=== PATIENT | female | born 1965 | race Caucasian/White ===

== ENCOUNTER 2022-11-03 12:45 | Outpatient (OUT) | payer MEDICARE, MEDICAID, SELFPAY ==
--- NOTE | 2022-11-03 | CONS_ITS ---
CONSULTATION DATE: ??11/03/2022 TO:? Gretel Esqueda M.D. CHIEF COMPLAINT:? Includes bilateral knee pain, right worse than left.? HISTORY OF PRESENT ILLNESS:? Review of systems, past medical/surgical history were obtained and documented on the health questionnaire and is available upon request. She reports that she has had knee pain for many years, at least since 2012.? In the past, she reports she has undergone some type of arthroscopic knee surgery on the right side.? Details of which are not available.? Despite the successful operation, she reports the pain continue to progress over the years, to the point where it has altered her quality of life, level of functioning and sleep pattern.? She describes the pain as 5-7/10 pain, sharp in character, increased with activities such as standing, walking and performing transitioning maneuvers.? She feels most comfortable in the semi-recumbent position.? She denies any change in bowel and bladder habits or new sensorimotor changes in the lower extremities?? She has been on various non-steroidal agents for at least the last 10 years, on and off, and most recently she has been on Mobic consistently, again, for at least the last six months.? She has also received intra-articular corticosteroid injections.? She reports she has had significant but only temporary reduction in pain symptoms with the same. MEDICATION:? Current medication includes Tylenol p.o. p.r.n.? She does report, it does take the edge off and she uses it sparingly EXAM:? Her examination is notable for patient having no clinical radiculopathy or myelopathy involving the lower extremities.? She has had nothing suggesting facet joint loading pain clinically, SI joint dysfunction or hip joint dysfunction.? She did have tenderness around both knee joints.? Also noted was a significant amount of edema surrounding both knee joints, right worse than left, with significant crepitus bilaterally, right worse than left.? Limited range of motion to flexion and extension, associated with pain.? She had nothing to suggest ligamental laxity of both knee joints.? She did have a fair amount of myofascial spasm involving the hamstrings and gastrocnemius muscles bilaterally, right worse than the left side.? She has no appreciable J-sign on examination. IMPRESSION:? Our impression is patient appears to have chronic pain, secondary to bilateral knee joint pain of unclear etiology, most likely osteoarthrosis. RECOMMENDATIONS:? I recommend she undergo an MRI of her bilateral knee joints.? I have placed her on baclofen 5 mg pills, 1-2 b.i.d. as tolerated.? Aquatic therapy was initiated, and we will see the patient back in the office in 4-6 weeks? time or sooner if needed. As part of providing excellent, safe, comprehensive care, the following was completed at our patient's visit: 1. A medication reconciliation and review to ensure accurate knowledge of current/active medications, including asking our patients to inform us about any mmac-[id number] medications or herbal remedies/nutritional supplements/alternative remedies. 2. A review to specifically ensure our patients have had annual screening for: elevated body mass index (BMI, see intake chart for exact total), tobacco use, screening for depression, and screening for unhealthy alcohol use.? When screening is concerning, patients are provided with education and the specific recommendation to discuss the concerning health issue and treatment options with their primary care provider. JACKIE
== END 2022-11-03 12:46 | disposition home or self-care (01) ==
LOC: PM 12:45
PROVIDERS: PCP Family Medicine; Visit Provider Anesthesiology Pain Medicine
DX: M25.561 Pain in right knee (principal); M25.562 Pain in left knee; G89.29 Other chronic pain
CPT/HCPCS: G0463

== ENCOUNTER 2022-11-19 12:01 | Outpatient (OUT) | payer MEDICARE, MEDICAID, SELFPAY ==
--- NOTE | 2022-11-19 12:13 | MR_ITS ---
[address] [address] Patient Name: MASSIEL ELLIOTT MRN: [id number] date: 1965 Sex: F Assigned Patient Location: MRI Current Patient Location: MRI Accession/Order Number: [id number] Exam Date: 11/19/2022 12:24 Report Date: 11/19/2022 14:11 At the request of: BARBIE LOPEZ Procedure: MR knee RT wo con EXAM: MR knee RT wo con HISTORY: Bilateral knee osteoarthritis right knee pain. COMPARISON: Right knee x-rays 04/16/2022. TECHNIQUE: Multi planar, multisequence MR imaging of the right kidney is without contrast. Findings: Menisci: There is complex tearing within the posterior horn of the medial meniscus extending through the body. The body is partially extruded. There is minimal free edge fraying of the posterior aspect of the body of the lateral meniscus. Cruciate ligaments: The anterior posterior cruciate ligaments are intact. Collateral ligaments: The medial collateral ligament and lateral collateral complex are intact. Patellofemoral: The extensor mechanism is intact. Moderate-sized joint effusion. Intra-articular loose bodies posterior to the PCL. The largest measures approximately 2.3 cm. 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 Other bones and cartilage: No acute fracture or malalignment. Grade 2 with regions of grade 3 lateral femoral tibial compartment chondromalacia. There is grade 4 medial femoral tibial compartment chondromalacia with adjacent bone marrow edema. Miscellaneous: Small to moderate-sized Jones's cyst. Nonspecific subcutaneous edema. MR/MR knee RT wo con IMPRESSION: 1. Torn medial meniscus. 2. Minimal free edge tearing of the lateral meniscus. 3. Moderate-sized joint effusion with intra-articular loose bodies. 4. Tricompartmental osteoarthritis. Findings are most severe within the medial femoral tibial compartment. 5. Small to moderate-sized Jones's cyst. Electronically authenticated by: NILESH GUALLPA Date: 11/19/2022 14:11
--- NOTE | 2022-11-19 12:13 | MR_ITS ---
[address] [address] Patient Name: MASSIEL ELLIOTT MRN: [id number] date: 1965 Sex: F Assigned Patient Location: MRI Current Patient Location: MRI Accession/Order Number: [id number] Exam Date: 11/19/2022 12:24 Report Date: 11/19/2022 13:51 At the request of: BARBIE LOPEZ Procedure: MR knee LT wo con EXAM: MR knee LT wo con HISTORY: Bilateral knee osteoarthritis left knee pain. COMPARISON: None. TECHNIQUE: Multi planar, multisequence MR imaging of the left knee without contrast. Findings: Menisci: There is complex tearing throughout the posterior horn of the medial meniscus extending along the undersurface of the body. There is also mild free edge tearing of the body of the medial meniscus. The body is partially extruded. Minimal free edge tearing involving the posterior horn of the lateral meniscus. Cruciate ligaments: The anterior posterior cruciate ligaments are intact. Collateral ligaments: The medial collateral ligament and lateral collateral complex are intact. Patellofemoral: Moderate to large joint effusion. Grade 4 patellofemoral compartment chondromalacia. Other bones and cartilage: There is dominantly grade II chondromalacia within the lateral femoral tibial compartment. There is a small region of full-thickness cartilage loss involving the lateral tibial plateau with mild adjacent bone marrow edema. Grade 4 medial femoral tibial compartment chondromalacia with mild adjacent subcortical cystic change in bone marrow edema. Miscellaneous: Small Jones's cyst. Nonspecific subcutaneous edema. MR/MR knee LT wo con IMPRESSION: 1. Torn menisci. 2. Moderate to large joint effusion. 3. Tricompartmental osteoarthritis. 4. Small Jones's cyst. Electronically authenticated by: NILESH GUALLPA Date: 11/19/2022 13:51
== END 2022-11-19 12:02 | disposition home or self-care (01) ==
LOC: MRI 12:03
PROVIDERS: PCP Family Medicine; Visit Provider Anesthesiology Pain Medicine
DX: M17.0 Bilateral primary osteoarthritis of knee (principal)
CPT/HCPCS: 73721; 73723

== ENCOUNTER 2022-12-16 09:02 | Outpatient (OUT) | payer MEDICARE, MEDICAID, SELFPAY ==
--- NOTE | 2022-12-16 09:36 | PM.CN ---
Consult Note: HPI Data of Consult Patient: known to practice within the last 3 years Requesting Physician: Nadeen Farmer NP Primary Care Provider: Gretel Esqueda MD Consult Narrative Reason for consult: f/u Narrative: Elizabeth Chu a pleasant 57 year old female presents for evaluation of chronic bilateral knee pain. Patient recently underwent bilateral knee MRI and is here to discuss the results. Pain 8-9/10 bilateral knees. cc:: CC: Nadeen Farmer NP Review of Systems ROS Status of ROS 10 or more systems reviewed and unremarkable except as noted in history and below Musculoskeletal Reports: joint pain Meds Home Medications and Allergies Home Medications Medication Instructions Recorded Confirmed Type apixaban 5 mg tablet (Eliquis) 5 mg PO BID 11/09/22 11/09/22 History calcium carbonate 500 mg calcium 500 mg PO DAILY 11/09/22 11/09/22 History (1,250 mg) tablet (Oyster Shell Calcium) carbamazepine 200 mg 200 mg PO DAILY 11/09/22 11/09/22 History tablet,extended release,12 hr (Tegretol XR) cetirizine 10 mg tablet 10 mg PO DAILY PRN allergy symptoms 11/09/22 11/09/22 History cholecalciferol (vitamin D3) 50 50 mcg PO DAILY 11/09/22 11/09/22 History mcg (2,000 unit) capsule famotidine 20 mg tablet 20 mg PO BID 11/09/22 11/09/22 History montelukast 10 mg tablet 10 mg PO DAILY 11/09/22 11/09/22 History (Singulair) potassium chloride 10 mEq 10 meq PO DAILY 11/09/22 11/09/22 History capsule,extended release primidone 50 mg tablet 50 mg PO DAILY 11/09/22 11/09/22 History sertraline 25 mg tablet 25 mg PO DAILY 11/09/22 11/09/22 History Allergies Allergy/AdvReac Type Severity Reaction Status Date / Time No Known Drug Allergies Allergy Verified 11/09/22 14:01 Exam Constitutional Documenting provider has reviewed patient's vital signs: yes Common normals: no apparent distress, oriented x3, healthy appearing, alert and well nourished General appearance: cooperative HENMT Common normals: normocephalic, hearing grossly normal bilaterally and moist oral mucous membranes Head and scalp: normocephalic Eye Common normals: PERRL Pupil: PERRL Neck & C-Spine Common normals: full ROM General: normal visual inspection Chest Common normals: inspection of chest normal Respiratory Common normals: normal respiratory effort, no retractions and no use of accessory muscles Extremity Other: bilateral knee diameter enlargement, edema, pain to touch severe pain with medial and lateral stress testing moderate to severe pain with standing and ambulation Neuro Common normals: oriented x3, CN's II-XII intact bilaterally, moves all extremities, no focal motor deficits, no sensory deficits noted and deep tendon reflexes 2+ bilaterally Sensorium/orientation: alert Motor exam: strength 5/5 throughout and no movement abnormalities noted Psych Common normals: mental status grossly normal, thought process normal, cooperative, affect normal, speech normal and activity/motor behavior normal Speech: normal speech Thought process: normal thought process Results Additional Findings Additional findings: I have checked an [place]AR[place] report on this patient today and there are no aberrancies noted in the prescribing history.?? A drug screen was completed and reviewed within the last year, and if there has not been a drug screen completed we ordered one today to monitor higher risk, state monitored pain medication use. As part of providing excellent, safe, comprehensive care, the following was completed at our patient's visit: 1. A medication reconciliation and review to ensure accurate knowledge of current/active medications, including asking our patients to inform us about any zktw-kqt-xprlygg medications or herbal remedies/nutritional supplements/alternative remedies. 2. A review to specifically ensure our patients have had annual screening for: elevated body mass index (BMI), tobacco use, screening for depression, and screening for unhealthy alcohol use. When screening is concerning, patients are provided with education and the specific recommendation to discuss the concerning health issue and treatment options with their primary care provider. Assessment and Plan Assessment and Plan (1) Bilateral knee pain: (2) Osteoarthritis of knees, bilateral: Plan continue current medications orthopedic consult for MRI findings on bilateral knees start aquatherapy start transdermal therapeutics cream TID-QID bilateral knees f/u 2 months, consider durolane to bilateral knees if not surgical candidate.
== END 2022-12-16 09:03 | disposition home or self-care (01) ==
PROVIDERS: PCP Family Medicine; Visit Provider Nurse Practitioner
DX: M25.561 Pain in right knee (principal); M25.562 Pain in left knee; M17.0 Bilateral primary osteoarthritis of knee
CPT/HCPCS: G0463

== ENCOUNTER 2022-12-21 07:56 | Outpatient (RCR) | payer MEDICARE, MEDICAID, SELFPAY | END 2022-12-22 16:55 | disposition home or self-care (01) | LOC: PT 07:56 | PROVIDERS: PCP Family Medicine; Visit Provider Nurse Practitioner | DX: M25.561 Pain in right knee (principal); M25.562 Pain in left knee | CPT/HCPCS: 97162 ==

== ENCOUNTER 2023-04-21 09:22 | Emergency (ER) | payer MEDICARE, MEDICAID, SELFPAY ==
[2023-04-21] VITALS (25 sets, daily range): BP systolic 89–116; BP diastolic 52–73; PULSE 108–124; RESP 19–30; TEMP 36.6; O2SAT 79–97; BMI 35.6
--- NOTE | 2023-04-21 09:30 | ECG_ITS ---
[facility] Test Date: 2023-04-21 Pat Name: MASSIEL ELLIOTT Department: Room: - Gender: Female Manager Floor: : 1965 Requested By: CASSIE LORENZ Order Number: [id number] Reading MD: ZAIN ROSS Measurements Intervals [place] Rate: 117 P: 43 VA: 118 QRS: 18 QRSD: 96 T: 0 QT: 320 QTc: 390 Interpretive Statements 1120 Sinus tachycardia 2210 Short VA interval 4068 Nonspecific Twave abnormality 5222 Moderate voltage criteria for LVH, may be normal variant 9150 abnormal ECG Electronically Signed On 04-22-2023 6:41:03 EST by ZAIN ROSS
--- OUTSIDE RECORDS SUMMARY | 2023-04-21 09:34 | XMS_ITS | CCD ---
Author Name Unknown Address [address] [facility] [id number] [place] [address] Organization [facility] Care Team Providers Care Egg Pasteurizer Name Role Phone Gretel Lorenz Unavailable GERDA, DR GRETEL Jaramillo Primary Care Unavailable LORENZ, DR GRETEL Jaramillo Admitting Unavailable ZIEBCATA, DR ARELI Dewey Consulting Unavailable LORENZ, DR GRETEL Jaramillo Attending Unavailable LORENZ, DR GRETEL Jaramillo Consulting Unavailable LORENZ, DR GRETEL Jaramillo Primary Care Unavailable LORENZ, DR GRETEL Jaramillo Admitting Unavailable BAKARI GONZALEZ Consulting Unavailable LORENZ, DR GRETEL Jaramillo Attending Unavailable LORENZ, DR GRETEL Jaramillo Consulting Unavailable LORENZ, DR GRETEL Jaramillo Primary Care Unavailable LORENZ, DR GRETEL Jaramillo Admitting Unavailable LORENZ, DR GRETEL Jaramillo Attending Unavailable GERDA, GRETEL Primary Care Physician LUCY EMNENDEZ Attending Unavailable ZUNIGA, NOLA Leonard Referring Unavailable ZUNIGA, NOLA Leonard Attending Unavailable Zuniga, Nola Leonard Referring Unavailable Zuniga, Nola Leonard Attending Unavailable Zuniga, Nola Leonard Admitting Unavailable Allergies Allergy Classification Reported Allergen(s) Allergy Type Date of Onset Reaction(s) Facility (10 sources) diphenhydrAMINE Drug Allergy Unknown [employer] Other (11 sources) Phenytoin; Translations: [phenytoin] Drug Allergy Unknown, Rash [facility] (10 sources) Seasonal allergy Propensity to adverse reactions Unknown [employer] Other (2 sources) Phenytoin Drug Allergy 05-26-19 15 [facility] Repository Medications Current Medications Medication Drug Class(es) Dates Sig (Normalized) Sig (Original) acetaminophen 325 mg / oxyCODONE hydrochloride 5 mg oral tablet (1 source) Opioid Agonist Start: 04-09-2023 take 1 tablet by mouth every six hours oxyCODONE-Acetam inophen 5-325 MG 1 tablet as needed Orally every 6 hrs for 15 days Mar, Active apixaban 5 mg oral tablet (1 source) Factor Xa Inhibitor Start: 03-17-2023 take 1 tablet by mouth twice daily Eliquis 5 mg oral tablet 5 mg = 1 tab(s), Oral, BID, Refills(s) 0, Blood Thinner Start Date: 03/17/23 Status: Ordered aspirin 325 mg oral tablet (9 sources) Platelet Aggregation Inhibitor, Nonsteroidal Anti-inflammatory Drug take 1 tablet by mouth every twenty-four hours Aspirin 325 MG 1 tablet Orally Once a day Active take 1 tablet by mouth every twe lve hours azithromycin 250 mg oral tablet (8 sources) Macrolide Antimicrobial Start: 06-25-2022 Azithromycin 250 MG as directed Orally 2 tabs po today, then 1 tab daily x 4 more days for 5 Jun, Active Start: 03-20-2022 Azithromycin 2 50 MG as directed Orally 2 tabs po today, then 1 tab daily x 4 more days for 5 days 2 tabs po today, then 1 po daily x 4 more days Feb, Active calcium carbonate 1250 mg oral tablet (9 sources) take 1 tablet by pepper th once daily Oyster Shell Calcium 500 MG TAKE 1 TABLET BY MOUTH EVERY DAY for 90 Active take 1 tablet by pepper th twice daily at mealtime Oyster Calcium 500 MG 1 tablet with food Orally Twice a day Active 12 hr carBAMazepine 200 mg extended release oral tablet (19 sources) Mood Stabilizer Start: 03-17-2023 take 1 tablet by mouth once daily Tegretol XR 200 mg oral tablet, extended release 200 mg = 1 tab(s), Oral, Daily, Refills(s) 0, Seizure Start Date: 03/17/23 Status: Ordered take 1 capsule by mo [facility] three times daily carBAMazepine ER 200 MG 1 capsule Orally Three times daily Active TEGretol 200 MG Orally Active take 1 capsule by mouth twice da ever cetirizine hydrochloride 10 mg oral tablet (11 sources) Histamine-1 Receptor Antagonist Start: 03-17-2023 take 1 tablet by mouth once daily cetirizine 10 mg Tab 10 mg = 1 tab(s), Oral, Daily, Refills(s) 0, Allergy symptoms Start Date: 03/17/23 Status: Ordered cholecalciferol 0.05 mg oral tablet (10 sources) Vitamin D Start: 03-17-2023 take 1 tablet by mouth once daily cholecalciferol 2000 intl units oral tablet (Vitamin D3) 50 mcg = 1 tab(s), Oral, Daily, Refills(s) 0, Prophylaxis Start Date: 03/17/23 Status: Ordered take 1 tablet by mouth once zoila y Vitamin D 50 MCG (1999 UT) TAKE 1 TABLET BY MOUTH EVERY DAY for 90 Active take 1 capsule by mo ut every twenty-four hours Vitamin D3 50 MCG (1999 UT) 1 capsule Orally Once a day Active ciprofloxacin 500 mg oral tablet (8 sources) Quinolone Antimicrobial Start: 03-13-2015 take 1 tablet by mouth every twelve hours docusate sodium 100 mg oral capsule (1 source) take 1 capsule by mouth every twenty-four hours Colace 100 MG 1 capsule as needed Orally Once a day Active famotidine 20 mg oral tablet (11 sources) Histamine-2 Receptor Antagonist Start: 03-17-2023 take 1 tablet by mouth twice daily famotidine 20 mg Tab 20 mg = 1 tab(s), Oral, BID, Refills(s) 0, Control of stomach acid Start Date: 03/17/23 Status: Ordered take 1 tablet by [facility] every twenty-four hours Famotidine 20 MG 1 tablet at bedtime as needed Orally Once a day Active furosemide 40 mg oral tablet (8 sources) Loop Diuretic take 1 tablet by mouth every twenty-four hours hydrOXYzine hydrochloride 25 mg oral tablet (9 sources) Antihistamine take 1 tablet by mouth once daily at bedtime as needed hydrOXYzine HCl 25 MG TAKE 1 TABLET BY MOUTH EVERY DAY AT BEDTIME NEEDED for 90 Active ammonium lactate 120 mg/ml topical lotion (1 source) Ammonium Lactate 12 % 1 application External Twice a day as needed for dry skin for 30 days Active meloxicam 15 mg oral tablet (8 sources) Nonsteroidal Anti-inflammatory Drug Start: 023 take 1 tablet by mouth every twenty-four hours Meloxicam 15 MG 1 tablet Orally Once a day for 30 day(s) Mar, Active montelukast 10 mg oral tablet (17 sources) Leukotriene Receptor Antagonist Start: 023 take 1 tablet by mouth once daily montelukast 10 mg Tab 10 mg = 1 tab(s), Oral, Daily, Refills(s) 0, Allergy symptoms Start Date: 03/17/23 Status: Ordered Oyster Shell Calcium 1250 mg (500 mg elemental calcium) oral tablet (1 source) Start: Oyster Shell Calcium 1250 mg (500 mg elemental calcium) oral tablet 1,250 mg = 1 tab(s), Oral, Daily, Refills(s) 0, Prophylaxis Start Date: 03/17/23 Status: Ordered Oyster Shell Calcium 500 MG (1 source) take 1 tablet by mouth once daily Oyster Shell Calcium 500 MG TAKE 1 TABLET BY MOUTH EVERY DAY for 90 Active predniSONE 20 mg oral tablet (2 sources) Start: take 2 tablets by mouth every twenty-four hours predniSONE 20 MG 2 tablets Orally Once a day for 5 days Jun, Active primidone 50 mg oral tablet (9 sources) Anti-epileptic Agent Start: take 1 tablet by mouth once daily at bedtime primidone 50 mg Tab 50 mg = 1 tab(s), Oral, Once a day (at bedtime), Refills(s) 0, Seizure Start Date: 03/17/23 Status: Ordered Primidone 50 MG 13 Orally Once per day Active sertraline 25 mg oral tablet (11 sources) Serotonin Reuptake Inhibitor Start: 03-17-2023 take 1 tablet by mouth once daily sertraline 25 mg Tab 25 mg = 1 tab(s), Oral, Daily, Refills(s) 0, Depression Start Date: 03/17/23 Status: Ordered Completed/Discontinued Medications Medication Drug Class(es) Dates Sig (Normalized) Sig (Original) Potassium Chloride (19 sources) Start: 03-17-2023 take 1 tablet by mouth once daily Potassium Chloride (Qud-Alsb-Fhd 10) 10 mEq oral tablet, extended release 10 mEq = 1 tab(s), Oral, Daily, Refills(s) 0, Prophylaxis Start Date: 03/17/23 Status: Ordered take 1 tablet by mouth once zoila y Potassium Chloride ER 10 MEQ TAKE 1 TABLET BY MOUTH EVERY DAY for 90 Active Potassium Chlori de 10 MEQ Orally Active triamcinolone acetonide 40 mg/ml injectable suspension (12 sources) Corticosteroid Start: 06-25-2022 Kenalog-40 Jun, 60 mg Triamcinolone Ac etonide 0.1 % 1 application Externally Two times a Week Active Problems Active Problems Problem Classification Problem Date Documented Da te Episodic/Chronic Allergic reactions (10 sources) Inflammatory dermatosis; Translations: [Dermatitis, unspecified] Episodic Deficiency and other anemia (10 sources) Anemia; Translations: [Anemia, unspecified] Episodic Developmental disorders (1 source) Cognitive developmental delay 03-17-2023 Chronic Epilepsy; convulsions (2 sources) Seizure disorder; Translations: [Epilepsy, unspecified, not intractable, without status epilepticus] Chronic Esophageal disorders (2 sources) Gastro-esophageal reflux disease with esophagitis; Translations: [Gastroesophageal reflux disease with esophagitis, unspecified whether hemorrhage] Chronic Essential hypertension (10 sources) Hypertensive disorder; Translations: [Essential (primary) hypertension] Chronic Nonspecific chest pain (10 sources) Chest pain; Translations: [Chest pain, unspecified] Episodic Osteoarthritis (1 source) Unilateral primary osteoarthritis, right knee; Translations: [UNI PRIM OSTEOARTHRITIS RT KNEE] Onset: 04-20-2022 Chronic Other connective tissue disease (1 source) Presence of right artificial knee joint Chronic Other inflammatory condition of skin (8 sources) Pruritus of skin; Translations: [Pruritus, unspecified] Episodic Other inflammatory condition of skin (2 sources) Pruritus, unspecified; Translations: [Pruritic dermatitis] Episodic Other nervous system disorders (4 sources) Chronic pain; Translations: [Other chronic pain] Chronic Other screening for suspected conditions (not mental disorders or infectious disease) (4 sources) Encounter for screening mammogram for malignant neoplasm of breast; Translations: [ENC SCR MAMMO MALIG NEOPLASM BREAST] Onset: 07-21-2022 Episodic Other upper respiratory disease (10 sources) Seasonal allergic rhinitis; Translations: [Other seasonal allergic rhinitis] Chronic Phlebitis; thrombophlebitis and thromboembolism (10 sources) Deep venous thrombosis; Translations: [Acute embolism and thrombosis of unspecified deep veins of unspecified lower extremity] Episodic Syncope (1 source) Syncope and collapse Episodic Unclassified (1 source) History of clinical finding in subject 03-17-2023 Viral infection (10 sources) Herpes zoster with complication; Translations: [Zoster with other complications] Episodic Past or Other Problems Problem Classification Problem Date Documented Da te Episodic/Chronic Esophageal disorders (8 sources) Esophageal disorders; Translations: [Gastroesophageal reflux disease with esophagitis, unspecified whether hemorrhage] Other non-traumatic joint disorders (5 sources) Pain in right knee; Translations: [PAIN IN RIGHT KNEE] Onset: 04-16-2022 Episodic Viral infection (10 sources) Disease caused by 2019-nCoV; Translations: [COVID-19] Results Test Name Value Interpretation Reference Range Facility C Urineon 03-19-2023 Bacteria identified Cx Nom (U) Microbiology PROCEDURE: Urine Culture [R1] SOURCE: U CleanCatch BODY SITE: COLLECTED DATE/TIME: 03/17/2023 08:49 EST RECEIVED DATE/TIME: 03/17/2023 10:59 EST START DATE/TIME: 03/17/2023 10:59 EST FREE TEXT SOURCE: Nola Zuniga DO, DO, Nola Leonard FINAL REPORTS Final Report [] Verified Date/Time: 03/19/2023 10:45 EST >100,000 cfu/ml Escherichia coli 1,000 cfu/ml Mixed skin contaminants SUSCEPTIBILITY RESULTS ____ LEGEND: S=Susceptible, N/R=Not Reported, Blank=Data not available, or drug not advisable or tested, I=Intermediate, ESBL=Extended spectrum beta-lactamase, R=Resistant, TFG=Thymidine-dependent strain, KRISTEN=Beta-lactamase positive, YUN=mcg/m;(mg/L), S*=Predicted susceptible interp, R*=Predicted resistant interp ___ EC Antibiotic YUN Dilutn YUN Interp Amikacin <=16 S Ampicillin <=8 S Ampicillin/ <=8/4 S Sulbactam Aztreonam <=4 S Cefazolin <=2 S Cefepime <=2 S Cefoxitin <=8 S Ceftazidime <=1 S Ceftazidime/ <=8 S Avibactam Ceftriaxone <=1 S Ciprofloxacin <=1 S Ertapenem <=0.5 S Gentamicin <=4 S Levofloxacin <=2 S Meropenem <=1 S Nitrofurantoin <=32 S Piperacillin/ <=16 S Tazobactam Tetracycline <=4 S Tigecycline <=2 S Tobramycin <=4 S Trimethoprim/ <=2/38 S Sulfa Performing Locations R1: This test was performed at: [facility], [address] [place] [address], [address]- , , Normal [facility] Comment on above: Performed By: #### 1 [id number] #### [facility] Laboratory [address] [place] [address] ABO/Rh Retypeon 03-17-2023 ABO/Rh Retype Interp Positive Invalid Interpretation Code [facility] Comment on above: Performed By: #### 1 [id number] #### [facility] [address] [place] [address] 60938 Auto Diffon 03-17-2023 Basophils/100 WBC (Bld) 0.1 % Normal 0.0-2.0 [facility] Comment on above: Order Comment: Order Added by Discern Expert. Performed By: #### 2 [id number], [id number], [id number], [id number] #### [facility] [address] [place] [address] Basophils/Leukocytes Auto (Bld) [Pure # fraction] 0.0 E9/L Normal 0.0-0.2 [facility] Comment on above: Order Comment: Order Added by Discern Expert. Performed By: #### 2 [id number], [id number], [id number], [id number] #### [facility] [address] [place] [address] Eosinophils/100 WBC (Bld) 0.0 % Normal 0.0-8.0 [facility] Comment on above: Order Comment: Order Added by Discern Expert. Performed By: #### 2 307616, [id number], [id number], [id number] #### [facility] [address] [place] [address] 83787 Eosinophils/Leukocyt es Auto (Bld) [Pure # fraction] 0.0 E9/L Normal 0.0-0.5 [facility] Comment on above: Order Comment: Order Added by Discern Expert. Performed By: #### 2 [id number], 2274290, [id number], [id number] #### [facility] [address] [place] [address] 53982 Lymphocytes/100 WBC (Bld) 29.6 % Normal 14.0-50.0 [facility] Comment on above: Order Comment: Order Added by Cynthia Expert. Performed By: #### 2 259150, 2284306, [id number], [id number] #### [facility] [address] [place] [address] 03527 Lymphocytes/Leukocyt es Auto (Bld) [Pure # fraction] 1.4 E9/L Normal 1.0-4.0 [facility] Comment on above: Order Comment: Order Added by Cynthia Expert. Performed By: #### 2 034908, 1684842, [id number], [id number] #### [facility] [address] [place] [address] 51699 Monocytes/100 WBC (Bld) 10.4 % Normal 4.0-14.0 [facility] Comment on above: Order Comment: Order Added by Discern Expert. Performed By: #### 2 056959, 4291383, [id number], 6791303 #### [facility] [address] [place] [address] 38081 Monocytes/Leukocytes Auto (Bld) [Pure # fraction] 0.5 E9/L Normal 0.2-1.0 [facility] Comment on above: Order Comment: Order Added by Cynthia Expert. Performed By: #### 2 613346, 0710054, [id number], [id number] #### [facility] [address] [place] [address] 63758 Neutrophils/100 WBC (Bld) 59.9 % Normal 36.0-75.0 [facility] Comment on above: Order Comment: Order Added by Discern Expert. Performed By: #### 2 223607, 8530774, [id number], [id number] #### [facility] [address] [place] [address] Neutrophils/Leukocyt es Auto (Bld) [Pure # fraction] 2.9 E9/L Normal 2.0-7.5 [facility] Comment on above: Order Comment: Order Added by Discern Expert. Performed By: #### 2 012803, 0638512, [id number], [id number] #### [facility] [address] [place] [address] BLOOD BANKOrdered By: Mckenzie Bosch on 03-17-2023 ABO/Rh Retype Interp Positive Invalid Interpretation Code [facility] [place] Subsection BMPon 03-17-2023 Anion gap [Moles/Vol] 10 mmol/L Normal 6-16 [facility] Comment on above: Performed By: #### 2 002403, 7667426, [id number], [id number] #### [facility] [address] [place] [address] BUN/Creat Ratio 31 No Units High 10-20 [facility] Comment on above: Performed By: #### 2 219118, 4506417, 37123866, 2106874 #### [facility] [address] [place] [address] Calcium [Mass/Vol] 9.2 mg/dL Normal 8.9-11.1 [facility] Comment on above: Performed By: #### 2 193346, 8077420, 18781647, 5968047 #### [facility] [address] [place] [address] Chloride [Moles/Vol] 106 mmol/L Normal 101-111 [facility] Comment on above: Performed By: #### 2 069609, 0295988, [id number], 9233549 #### [facility] [address] [place] [address] CO2 [Moles/Vol] 29 mmol/L Normal 21-31 [facility] Comment on above: Performed By: #### 2 475975, 0597969, 15875679, 9549828 #### [facility] [address] [place] [address] Creatinine [Mass/Vol] 0.8 mg/dL Normal 0.5-1.3 [facility] Comment on above: Performed By: #### 2 068435, 4233269, 36317186, 8353608 #### [facility] [address] [place] [address] Glucose [Mass/Vol] 75 mg/dL Normal 55-199 [facility] Comment on above: Performed By: #### 2 213885, 6717048, 15391977, 1183992 #### [facility] [address] [place] [address] Potassium [Moles/Vol] 3.9 mmol/L Normal 3.5-5.3 [facility] Comment on above: Performed By: #### 2 808071, 9245235, 21963322, 0008374 #### [facility] [address] [place] [address] Sodium [Moles/Vol] 141 mmol/L Normal 135-145 [facility] Comment on above: Performed By: #### 2 207912, 8657477, 09021989, 8005253 #### [facility] [address] [place] [address] Urea nitrogen [Mass/Vol] 25 mg/dL High 5-21 [facility] Comment on above: Performed By: #### 2 064266, 6653936, [id number], 4592909 #### [facility] [address] [place] [address] CBC w/ Auto Diffon 3 Erythrocyte distribution width (RBC) [Ratio] 13.4 % Normal 10.9-14.2 [facility] Comment on above: Performed By: #### 2 450813, 3300862, 59270600, 9434449 #### [facility] [address] [place] [address]47[address] Hematocrit (Bld) [Volume fraction] 39.0 % Normal 34.0-46.0 [facility] Comment on above: Performed By: #### 2 941922, 1199490, 90499293, 3511438 #### [facility] [address] [place] [address] Hemoglobin (Bld) [Mass/Vol] 13.6 g/dL Normal 12.0-16.0 [facility] Comment on above: Performed By: #### 2 766957, 0413015, 40585081, 3278401 #### [facility] [address] [place] [address] 62117 MCH (RBC) [Entitic mass] 31.6 pg Normal 27.0-34.0 [facility] Comment on above: Performed By: #### 2 839233, 2753422, 42580067, 5990511 #### [facility] [address] [place] [address] MCHC (RBC) [Mass/Vol] 34.8 g/dL Normal 31.4-36.0 [facility] Comment on above: Performed By: #### 2 340688, 8365815, 42991252, 2169411 #### [facility] [address] [place] [address] 91861 MCV (RBC) [Entitic vol] 90.9 fL Normal 80.0-100.0 [facility] Comment on above: Performed By: #### 2 008719, 8985980, 21274829, 6464576 #### [facility] [address] [place] [address] 84[address] Platelet mean volume (Bld) [Entitic vol] 8.0 fL Normal 6.4-10.8 [facility] Comment on above: Performed By: #### 2 036474, 2795769, 23839461, 9975460 #### [facility] [address] [place] [address] Platelets (Bld) [#/Vol] 253.0 E9/L Normal 150.0-500.0 [facility] Comment on above: Performed By: #### 2 094362, 6315048, 03113716, 4211428 #### [facility] [address] [place] [address] RBC (Bld) [#/Vol] 4.3 E12/L Normal 4.3-5.9 [facility] Comment on above: Performed By: #### 2 772275, 0417546, 02391674, 6454332 #### [facility] [address] [place] [address] WBC corrected for nucl RBC Auto (Bld) [#/Vol] 4.8 E9/L Normal 4.0-11.0 [facility] Comment on above: Performed By: #### 2 555086, 5732015, 81021414, 0391630 #### [facility] [address] [place] [address] CHEMISTRYOrdered By: SYSTEM SYSTEM on 03-17-2023 Anion gap [Moles/Vol] 10 mmol/L Normal 6 - 16 mEq/L Remisol Chem Calcium [Mass/Vol] 9.2 mg/dL Normal 8.9 - 11. 1 mg/dL Remisol Chem Chloride [Moles/Vol] 106 mmol/L Normal 101 - 1 11 mmol/L Remisol Chem CO2 [Moles/Vol] 29 mmol/L Normal 21 - 31 mmol/L Remisol Chem Creatinine [Mass/Vol] 0.8 mg/dL Normal 0.5 - 1.3 mg/dL Remisol Chem eGFR mL/min/1.73 m2 Normal >=59mL/min/1 .73 m2 Remisol Chem Glucose [Mass/Vol] 75 mg/dL Normal 55 - 199 mg/dL Remisol Chem Potassium [Moles/Vol] 3.9 mmol/L Normal 3.5 - 5.3 mmol/L Remisol Chem Sodium [Moles/Vol] 141 mmol/L Normal 135 - 145 mmol/L Remisol Chem Urea nitrogen [Mass/Vol] 25 mg/dL High 5 - 21 mg/dL Remisol Chem Urea nitrogen/Creatinine [Mass ratio] 31 mg/mg High 10 - 20 Remisol Chem Consent for Treatmenton 02-20 Consent for Treatment [id number] IFF Normal [facility] HEMATOLOGYOrdered By: SYSTEM SYSTEM on 03-17-2023 Basophils/100 WBC (Bld) 0.1 % Normal 0.0 - 2.0 % [facility] HemeAutoSS Basophils/Leukocytes Auto (Bld) [Pure # fraction] 0.0 E9/L Normal 0.0 - 0.2 E9/L [facility] Eosinophils/100 WBC (Bld) 0.0 % Normal 0.0 - 8.0 % [facility]eAuto[facility] Eosinophils/Leukocyt es Auto (Bld) [Pure # fraction] 0.0 E9/L Normal 0.0 - 0.5 E9/L [facility] Lymphocytes/100 WBC (Bld) 29.6 % Normal 14.0 - 50.0 % [facility] HemeAutoSS Lymphocytes/Leukocyt es Auto (Bld) [Pure # fraction] 1.4 E9/L Normal 1.0 - 4.0 E9/L [facility] Monocytes/100 WBC (Bld) 10.4 % Normal 4.0 - 14.0 % [facility]eAuto[facility] Monocytes/Leukocytes Auto (Bld) [Pure # fraction] 0.5 E9/L Normal 0.2 - 1.0 E9/L [facility] Neutrophils/100 WBC (Bld) 59.9 % Normal 36.0 - 75.0 % [facility]eAuto[facility] Neutrophils/Leukocyt es Auto (Bld) [Pure # fraction] 2.9 E9/L Normal 2.0 - 7.5 E9/L [facility] HEMATOLOGYOrdered By: Jose David Hairston on 03-17-2023 Erythrocyte distribution width (RBC) [Ratio] 13.4 % Normal 10.9 - 14.2 % [facility] Hematocrit (Bld) [Volume fraction] 39.0 % Normal 34.0 - 46.0 % [facility] Hemoglobin (Bld) [Mass/Vol] 13.6 g/dL Normal 12.0 - 16.0 gm/dL [facility] MCH (RBC) [Entitic mass] 31.6 pg Normal 27.0 - 34.0 pg [facility] MCHC (RBC) [Mass/Vol] 34.8 g/dL Normal 31.4 - 36.0 gm/dL [facility] MCV (RBC) [Entitic vol] 90.9 fL Normal 80.0 - 100.0 fL [facility] Platelet mean volume (Bld) [Entitic vol] 8.0 fL Normal 6.4 - 10.8 fL [facility] Platelets (Bld) [#/Vol] 253.0 E9/L Normal 150.0 - 500.0 E9/L [facility] RBC (Bld) [#/Vol] 4.3 E12/L Normal 4.3 - 5.9 E12/L [facility] WBC corrected for nucl RBC Auto (Bld) [#/Vol] 4.8 E9/L Normal 4.0 - 11.0 E9/L [facility] UA With Cult Reflexon 2022 Bacteria LM Ql (Urine sed) 3+ /HPF Abnormal Trace [facility] Comment on above: Performed By: #### 1 [id number], [id number] #### [facility] Laboratory [address] [place] [address] Bilirubin Ql (U) Negative Normal Negative [facility] Comment on above: Performed By: #### 1 [id number], [id number] #### [facility] Laboratory [address] [place] [address] Clarity (U) SL CLOUDY Invalid Interpretation Code [facility] Comment on above: Performed By: #### 1 [id number], [id number] #### [facility] Laboratory [address] [place] [address] Color (U) YELLOW Normal Yellow [facility] Comment on above: Performed By: #### 1 [id number], [id number] #### [facility] Laboratory [address] [place] [address] Epithelial cells.squamous LM.HPF (Urine sed) [#/Area] 5-8 Normal 0-2 [facility] Comment on above: Performed By: #### 1 [id number], [id number] #### [facility] Laboratory [address] [place] [address] Glucose Test strip (U) [Mass/Vol] Negative Normal Negative [facility] Comment on above: Performed By: #### 1 [id number], [id number] #### [facility] Laboratory [address] [place] [address] Hemoglobin Ql (U) Negative Normal Negative [facility] Comment on above: Performed By: #### 1 [id number], [id number] #### [facility] Laboratory [address] [place] [address] Ketones (U) [Mass/Vol] Negative Normal Negative [facility] Comment on above: Performed By: #### 1 [id number], [id number] #### [facility] Laboratory [address] [place] [address] Redby.plasma/Lithi um.RBC (Bld) [Mass ratio] 0-3 Normal 0-3 [facility] Comment on above: Performed By: #### 1 [id number], [id number] #### [facility] Laboratory [address] [place] [address] Nitrite Ql (U) Positive Abnormal Negative [facility] Comment on above: Performed By: #### 1 [id number], [id number] #### [facility] Laboratory [address] [place] [address] pH (U) 6.0 [pH] Invalid Interpretation Code 5.0-9.0 [facility] Comment on above: Performed By: #### 1 [id number], [id number] #### [facility] Laboratory [address] [place] [address] Protein (U) [Mass/Vol] Negative Normal Negative [facility] Comment on above: Performed By: #### 1 [id number], [id number] #### [facility] Laboratory [address] [place] [address] Specific gravity (U) [Rel density] 1.025 Invalid Interpretation Code 1.005-1.030 [facility] Comment on above: Performed By: #### 1 [id number], [id number] #### [facility] Laboratory [address] [place] [address] Type of Urine collection method Clean Catch Normal [facility] Comment on above: Performed By: #### 1 [id number], [id number] #### [facility] Laboratory [address] [place] [address] Urobilinogen Qn (U) 0.2 {Amina'U}/dL Normal 0.0-1.0 [facility] Comment on above: Performed By: #### 1 [id number], [id number] #### [facility] Laboratory [address] [place] [address] WBC Auto Ql (U) 1+ Abnormal Negative [facility] Comment on above: Performed By: #### 1 [id number], [id number] #### [facility] Laboratory [address] [place] [address] WBC LM.HPF (Urine sed) [#/Area] 6-15 Abnormal 0-5 [facility] Comment on above: Performed By: #### 1 [id number], [id number] #### [facility] Laboratory [address] [place] [address] URINALYSISOrdered By: Gracie Villegas on 03-17-2023 Bacteria LM Ql (Urine sed) 3+ /HPF Invalid Interpretation Code Trace/HPF [facility] UA Auto SS Bilirubin Ql (U) Negative (03/17/23 8:49 AM) Normal Negative [facility] UA Auto SS Clarity (U) SL CLOUDY Invalid Interpretation Code [facility] UA Auto SS Color (U) Yellow (03/17/23 8:49 AM) Normal Yellow [facility] UA Auto SS Epithelial cells.squamous LM.HPF (Urine sed) [#/Area] 5-8 /HPF Normal 0-2/HPF [facility] UA Auto SS Glucose Test strip (U) [Mass/Vol] Negative (03/17/23 8:49 AM) Normal Negative [facility] UA Auto SS Hemoglobin Ql (U) Negative (03/17/23 8:49 AM) Normal Negative [facility] UA Auto SS Ketones (U) [Mass/Vol] Negative (03/17/23 8:49 AM) Normal Negative [facility] UA Auto SS Redby.plasma/Lithi um.RBC (Bld) [Mass ratio] 0-3 /HPF Normal 0-3/HPF [facility] UA Auto SS Nitrite Ql (U) Positive *ABN* (03/17/23 8:49 AM) Invalid Interpretation Code Negative [facility] UA Auto SS pH (U) 6.0 *NA* (03/17/23 8:49 AM) Invalid Interpretation Code 5.0 - 9.0 [facility]A Auto SS Protein (U) [Mass/Vol] Negative (03/17/23 8:49 AM) Normal Negative [facility] UA Auto SS Specific gravity (U) [Rel density] 1.025 *NA* (03/17/23 8:49 AM) Invalid Interpretation Code 1.005 - 1.030 [facility] UA Auto SS UA Spec Desc Clean Catch (03/17/23 8:49 AM) Normal [facility] UA Auto SS Urobilinogen Qn (U) 0.2529850 {Amina'U}/dL Normal 0.0 - 1.0 EU/dL [facility] UA Auto SS WBC Auto Ql (U) 1+ *ABN* (03/17/23 8:49 AM) Invalid Interpretation Code Negative [facility] UA Auto SS WBC LM.HPF (Urine sed) [#/Area] 6-15 /HPF Invalid Interpretation Code 0-5/HPF [facility] UA Auto SS XR Chest 2 Viewson 3 XR Chest 2 Views Exam Date/Time: 03/17/2023 09:06 EST Reason for Exam: P.A.T. Report IMPRESSION: NO ACUTE CARDIOPULMONARY DISEASE. POSSIBLE EMPHYSEMA. CLINICAL INFORMATION: P.A.T. COMPARISON: None available. FINDINGS: Two views. Osseous structures intact. Cardiopericardial silhouette normal. Pulmonary vasculature normal. Lungs clear and hyperexpanded. Diaphragms are flattened. Ordering Provider: Meek Valentine FINAL REPORT Dictated: 03/17/2023 6:06 pm Nikhil España MD Signed (Electronic Signature): 03/17/2023 6:06 pm Signed by: Nikhil España MD Transcribed by: CESAR Technologist: KENYON Technical Comments Radiation Dose: Ka,r in mGy = 0 DAP = 0 Normal [facility] eGFRon 03-17-2023 GFR/1.73 sq M.predicted among non-blacks MDRD (S/P/Bld) [Vol rate/Area] mL/min/{1.73_m2} Normal >=59 [facility] Comment on above: Order Comment: Order added by Discern Expert. Performed By: #### 2 [id number], [id number], [id number], [id number] #### [facility] Laboratory [address] [id number] Physician Orderon 02-10-2023 Physician Order [id number] TIFF Normal [facility] MG MAMM SCREEN 3D ANA CADon 07-21-2022 MG MAMM SCREEN 3D ANA CAD Patient: ELIZABETH CHU Exam Date: 07/21/2022 : 1965 Gender:F Ordering : DR GRETEL LORENZ M.D. Admission #: [id number] Family : Order #: [id number] CLICK HERE TO VIEW EXAM RADIOLOGY REPORT PROCEDURE: MAMMOGRAM SCREENING 3D BILATERAL CAD COMPARISON: MG MAMM SCREEN 3D ANA CAD, 01/30/2021. MG MAMM SCREEN ANA W CAD, 08/25/2018. INDICATIONS: Screening mammography Calculator Name NCI Breast Cancer Risk Assessment Tool 5 Year Breast Cancer Risk Not Reported. Lifetime Breast Cancer Risk Not Reported. Personal Breast Cancer No Personal Ovarian Cancer No Treatments None Family Cancers None LOCATION: [facility] BREAST COMPOSITION: Scattered areas fibroglandular density. FINDINGS: DIAGNOSTIC CATEGORY 2--BENIGN FINDING. NO CHANGE FROM COMPARISON. Scattered benign-appearing nodules are present. Scattered benign-appearing calcifications are present. Scattered benign-appearing lymph nodes are present. RIGHT BREAST: No significant suspicious finding. LEFT BREAST: No significant suspicious finding. RECOMMENDATIONS: ROUTINE MAMMOGRAM AND CLINICAL EVALUATION IN 12 MONTHS. PLEASE NOTE: A NORMAL MAMMOGRAM DOES NOT EXCLUDE THE POSSIBILITY OF BREAST CANCER. A CLINICALLY SUSPICIOUS PALPABLE LUMP SHOULD BE BIOPSIED. Dictated by: Bakari Gonzalez MD on 07/22/2022 at 09:08 Approved by: Bakari Gonzalez MD on 07/22/2022 at 09:11 Normal [facility] ECG 12 lead ECGon 02-20-2021 ECG 12 lead ECG [facility] [place] [address] [place] [id number] Electrocardiograph Report Signed Patient: Elizabeth Chu MR#: [id number] : 1965 Acct:[id number] Age/Sex: 55 / F ADM Date: 02/14/21 Loc: Room: [address] [place] [address] Type: ADM IN Attending Dr: Giovanni Haider MD Ordering Provider: Giovanni Haider MD Date of Service: 02/20/2105/12/1622 ECG/ECG 12 lead ECG: qt check Copies to: Test Reason : Blood Pressure : / mmHG Vent. Rate : 082 BPM Atrial Rate : 082 BPM P-R Int : 134 ms QRS Dur : 084 ms QT Int : 390 ms P-R-T Axes : 015 017 039 degrees QTc Int : 455 ms Sinus rhythm with premature supraventricular complexes Abnormal ECG When compared with ECG of 07-FEB-2021 18:42, premature supraventricular complexes are now present Confirmed by HINA POLLACK MD (Nicolle) on 02/21/2021 1:24:18 PM Referred By: Juan Carlos Overton Electronically Signed By:HINA POLLACK MD Transcribed By: MUS Signed By Hina Pollack MD 1 04/24/20 1324 [facility] Stool Occult Blood (Guaiac)o n 02-17-2021 Stool Occult Blood (Guaiac) Occult Blood Negative for Occult Blood by Guaiac Methodology Reference range = Negative PERFORMED BY: [facility] [address] [place] [address] PATHOLOGIST DELIVERY DRIVER DANIELLE ANDERSON M.D. [facility] Comment on above: Performed By: #### A BG #### Point of Care testing , Comprehensive Metabolic Pane veronique 02-15-2021 Albumin [Mass/Vol] 2.3 g/dL Low 3.2-5.5 [facility] Comment on above: Performed By: #### H EPATIC, PHOS, MG, HS TROP, CBC, BMP #### [facility] [address] Albumin/Globulin [Mass ratio] 0.9 {ratio} Normal [facility] Comment on above: Performed By: #### H EPATIC, PHOS, MG, HS TROP, CBC, BMP #### [facility] [address] [place] [address] ALP [Catalytic activity/Vol] 66 U/L Normal 32-92 [facility] Comment on above: Performed By: #### H EPATIC, PHOS, MG, HS TROP, CBC, BMP #### [address] ALT [Catalytic activity/Vol] 52 U/L Normal 10-60 [facility] Comment on above: Performed By: #### H EPATIC, PHOS, MG, HS TROP, CBC, BMP #### [address] AST [Catalytic activity/Vol] 61 U/L High 10-42 [facility] Comment on above: Performed By: #### H EPATIC, PHOS, MG, HS TROP, CBC, BMP #### [facility] [address] [place] [address] Bilirubin [Mass/Vol] 0.3 mg/dL Normal 0.3-1.2 [facility] Comment on above: Performed By: #### H EPATIC, PHOS, MG, HS TROP, CBC, BMP #### [facility] [address] [place] [address] Calcium [Mass/Vol] 8.4 mg/dL Normal 8.2-10.2 [facility] Comment on above: Performed By: #### H EPATIC, PHOS, MG, HS TROP, CBC, BMP #### [facility] [address] [place] [address] [place] Chloride [Moles/Vol] 106 mmol/L Normal 95-114 [facility] Comment on above: Performed By: #### H EPATIC, PHOS, MG, HS TROP, CBC, BMP #### [facility] [address] [place] [address] [place] CO2 [Moles/Vol] 25.8 mmol/L Normal 22.0-30.0 [facility] Comment on above: Performed By: #### H EPATIC, PHOS, MG, HS TROP, CBC, BMP #### [facility] [address] Creatinine [Mass/Vol] 0.64 mg/dL Normal 0.44-1.03 [facility] Comment on above: Performed By: #### H EPATIC, PHOS, MG, HS TROP, CBC, BMP #### [facility] [address] Creatinine Clr Calc Pharmacy 121.10 [facility] Comment on above: Performed By: #### H EPATIC, PHOS, MG, HS TROP, CBC, BMP #### [facility] [address] Estimated GFR ( Prerna > 60 [facility] Comment on above: Result Comment: GFR estimated reference range: According to KDOQI guidelines, <60 ml/min/1.73m2 is sufficient to diagnose a patient with chronic kidney disease. Performed By: #### H EPATIC, PHOS, MG, HS TROP, CBC, BMP #### [facility] [address] Estimated GFR (Non- Am > 60 [facility] Comment on above: Performed By: #### H EPATIC, PHOS, MG, HS TROP, CBC, BMP #### [facility] [address] Globulin (S) [Mass/Vol] 2.7 g/dL [facility] Comment on above: Performed By: #### H EPATIC, PHOS, MG, HS TROP, CBC, BMP #### [facility] [address] Glucose [Mass/Vol] 116 mg/dL High 70-100 [facility] Comment on above: Result Comment: [place] om Glucose Reference Range is dependent on time and content of last meal. Glucose of more than 200 mg/dL in a nonstressed, ambulatory subject supports the diagnosis of Diabetes Mellitus. ADA recommended reference range Performed By: #### H EPATIC, PHOS, MG, HS TROP, CBC, BMP #### [facility] [address] [place] [address] Potassium [Moles/Vol] 4.2 mmol/L Normal 3.5-5.1 [facility] Comment on above: Performed By: #### H EPATIC, PHOS, MG, HS TROP, CBC, BMP #### [address] Protein [Mass/Vol] 5.0 g/dL Low 6.1-7.9 [facility] Comment on above: Performed By: #### H EPATIC, PHOS, MG, HS TROP, CBC, BMP #### [address] Sodium [Moles/Vol] 141 mmol/L Normal 136-146 [facility] Comment on above: Performed By: #### H EPATIC, PHOS, MG, HS TROP, CBC, BMP #### [address] Urea nitrogen [Mass/Vol] 8 mg/dL Low 9-23 [facility] Comment on above: Performed By: #### H EPATIC, PHOS, MG, HS TROP, CBC, BMP #### [address] Diff and CBCon 02-15-2021 Erythrocyte distribution width (RBC) [Ratio] 13.4 % Normal 11.9-15.3 [facility] Comment on above: Performed By: #### A BG #### Point of Care testing , Hematocrit (Bld) [Volume fraction] 30.8 % Low 34.0-46.4 [facility] Comment on above: Performed By: #### A BG #### Point of Care testing , Hemoglobin (Bld) [Mass/Vol] 10.3 g/dL Low 11.8-15.4 [facility] Comment on above: Performed By: #### A BG #### Point of Care testing , Lymphocytes/100 WBC (Bld) 41 % Normal 18-42 [facility] Comment on above: Performed By: #### A BG #### Point of Care testing , MCH (RBC) [Entitic mass] 32.2 pg Normal 24.7-34.3 [facility] Comment on above: Performed By: #### A BG #### Point of Care testing , MCV (RBC) [Entitic vol] 96.8 fL Normal 80-100 [facility] Comment on above: Performed By: #### A BG #### Point of Care testing , Mean Corpuscular HGB Conc 33.3 g/dL Normal 32.0-35.0 [facility] Comment on above: Performed By: #### A BG #### Point of Care testing , Metamyelocytes 2 % High 0-0 [facility] Comment on above: Performed By: #### A BG #### Point of Care testing , Monocytes/100 WBC (Bld) 7 % Normal 2-11 [facility] Comment on above: Performed By: #### A BG #### Point of Care testing , Nucleated RBC/100 WBC (Bld) [Ratio] 0.2 % Normal 0-0.5 [facility] Comment on above: Result Comment: PERF ORMED BY: [place] [address] PATHOLOGIST DELIVERY DRIVER DANIELLE ANDERSON M.D. Performed By: #### A BG #### Point of Care testing , Platelet Estimate Normal Normal Normal [facility] Comment on above: Performed By: #### A BG #### Point of Care testing , Platelet mean volume (Bld) [Entitic vol] 8.0 fL Normal 6.3-10.7 [facility] Comment on above: Performed By: #### A BG #### Point of Care testing , Platelet Morphology Normal Normal Normal [facility] Comment on above: Result Comment: PERF ORMED BY: [address] [place] [address] PATHOLOGIST DELIVERY DRIVER DANIELLE ANDERSON M.D. Performed By: #### A BG #### Point of Care testing , Platelets (Bld) [#/Vol] 366 10*3/uL Normal 150-450 [facility] Comment on above: Performed By: #### A BG #### Point of Care testing , RBC (Bld) [#/Vol] 3.18 10*6/uL Low 3.60-5.00 [facility] Comment on above: Performed By: #### A BG #### Point of Care testing , RBC morphology finding Nom (Bld) Normal Normal [facility] Comment on above: Performed By: #### A BG #### Point of Care testing , Segmented neutrophils/100 WBC (Bld) 50 % Normal 50-70 [facility] Comment on above: Performed By: #### A BG #### Point of Care testing , WBC (Bld) [#/Vol] 5.0 10*3/uL Normal 4.5-11.0 [facility] Comment on above: Performed By: #### A BG #### Point of Care testing , Folateon 02-15-2021 Folate 6.3 ng/mL Normal >5.9 [facility] Comment on above: Result Comment: Lizeth te reference range: >5.9 ng/ml The WHO technical consultation on folate and vitamin b12 deficiencies has determined that folate concentrations less than 4 ng/ml are considered deficient. PERFORMED BY: [place] [address] PATHOLOGIST DELIVERY DRIVER DANIELLE ANDERSON M.D. Performed By: #### A BG #### Point of Care testing , Prealbuminon 02-15-2021 Prealbumin [Mass/Vol] 17.6 mg/dL Low 18.0-38.0 [facility] Comment on above: Performed By: #### H EPATIC, PHOS, MG, HS TROP, CBC, BMP #### [address] Vitamin B12on 02-15-2021 Cobalamin (Vitamin B12) [Mass/Vol] 348 pg/mL Normal 180-914 [facility] Comment on above: Performed By: #### H EPATIC, PHOS, MG, HS TROP, CBC, BMP #### [facility] [address] [place] [address] Comprehensive Metabolic Pane veronique 02-14-2021 Albumin [Mass/Vol] 2.3 g/dL Low 3.2-5.5 [facility] Comment on above: Performed By: #### H EPATIC, PHOS, MG, HS TROP, CBC, BMP #### [address] Albumin/Globulin [Mass ratio] 0.7 {ratio} Normal [facility] Comment on above: Performed By: #### H EPATIC, PHOS, MG, HS TROP, CBC, BMP #### [address] ALP [Catalytic activity/Vol] 65 U/L Normal 32-92 [facility] Comment on above: Performed By: #### H EPATIC, PHOS, MG, HS TROP, CBC, BMP #### [address] ALT [Catalytic activity/Vol] 58 U/L Normal 10-60 [facility] Comment on above: Performed By: #### H EPATIC, PHOS, MG, HS TROP, CBC, BMP #### [address] AST [Catalytic activity/Vol] 86 U/L High 10-42 [facility] Comment on above: Performed By: #### H EPATIC, PHOS, MG, HS TROP, CBC, BMP #### [address] Bilirubin [Mass/Vol] 0.4 mg/dL Normal 0.3-1.2 [facility] Comment on above: Performed By: #### H EPATIC, PHOS, MG, HS TROP, CBC, BMP #### [address] Calcium [Mass/Vol] 8.4 mg/dL Normal 8.2-10.2 [facility] Comment on above: Performed By: #### H EPATIC, PHOS, MG, HS TROP, CBC, BMP #### [facility] [address] Chloride [Moles/Vol] 104 mmol/L Normal 95-114 [facility] Comment on above: Performed By: #### H EPATIC, PHOS, MG, HS TROP, CBC, BMP #### [address] CO2 [Moles/Vol] 26.2 mmol/L Normal 22.0-30.0 [facility] Comment on above: Performed By: #### H EPATIC, PHOS, MG, HS TROP, CBC, BMP #### [address] Creatinine [Mass/Vol] 0.70 mg/dL Normal 0.44-1.03 [facility] Comment on above: Performed By: #### H EPATIC, PHOS, MG, HS TROP, CBC, BMP #### [address] Creatinine Clr Calc Pharmacy 110.72 [facility] Comment on above: Result Comment: PERF ORMED BY: [place] [address] PATHOLOGIST DELIVERY DRIVER DANIELLE ANDERSON M.D. Performed By: #### H EPATIC, PHOS, MG, HS TROP, CBC, BMP #### [address] Estimated GFR ( Prerna > 60 [facility] Comment on above: Result Comment: GFR estimated reference range: According to KDOQI guidelines, <60 ml/min/1.73m2 is sufficient to diagnose a patient with chronic kidney disease. Performed By: #### H EPATIC, PHOS, MG, HS TROP, CBC, BMP #### [address] Estimated GFR (Non- Am > 60 [facility] Comment on above: Performed By: #### H EPATIC, PHOS, MG, HS TROP, CBC, BMP #### [address] Globulin (S) [Mass/Vol] 3.1 g/dL Normal [facility] Comment on above: Performed By: #### H EPATIC, PHOS, MG, HS TROP, CBC, BMP #### [facility] [address] Glucose [Mass/Vol] 119 mg/dL High 70-100 [facility] Comment on above: Result Comment: [facility] Glucose Reference Range is dependent on time and content of last meal. Glucose of more than 200 mg/dL in a nonstressed, ambulatory subject supports the diagnosis of Diabetes Mellitus. ADA recommended reference range Performed By: #### H EPATIC, PHOS, MG, HS TROP, CBC, BMP #### [facility] [address] [place] [address] Potassium [Moles/Vol] 4.0 mmol/L Normal 3.5-5.1 [facility] Comment on above: Performed By: #### H EPATIC, PHOS, MG, HS TROP, CBC, BMP #### [address] Protein [Mass/Vol] 5.4 g/dL Low 6.1-7.9 [facility] Comment on above: Performed By: #### H EPATIC, PHOS, MG, HS TROP, CBC, BMP #### [address] Sodium [Moles/Vol] 140 mmol/L Normal 136-146 [facility] Comment on above: Performed By: #### H EPATIC, PHOS, MG, HS TROP, CBC, BMP #### [address] Urea nitrogen [Mass/Vol] 9 mg/dL Normal 9-23 [facility] Comment on above: Performed By: #### H EPATIC, PHOS, MG, HS TROP, CBC, BMP #### [address] D-Dimer High Sensitivityon 1 04-16-2020 D-Dimer High Sensitivity 464 ng/mL High 0-243 [facility] Comment on above: Result Comment: The reference range for D-dimer is <243 ng/mL D-dimer units. D-dimer results must be used in conjunction with a clinical pretest probability (PTP) assessment model for deep vein thrombosis (DVT) and pulmonary embolism (PE). Results <230 ng/mL d-dimer units can be used as a negative predictor in patients with low or moderate probability for DVT/PE. Results above the exclusion threshold of 230 ng/ml D-dimer units for DVT/PE may indicate the need for further diagnostic testing. D-Dimer can be increased in hospitalized patients due to co-morbid conditions. PERFORMED BY: [place] [address] PATHOLOGIST DELIVERY DRIVER DANIELLE ANDERSON M.D. Performed By: #### H EPATIC, PHOS, MG, HS TROP, CBC, BMP #### [address] Diff and CBCon 02-14-2021 Band form neutrophils/100 WBC (Bld) 1 % Normal 0-5 [facility] Comment on above: Performed By: #### H EPATIC, PHOS, MG, HS TROP, CBC, BMP #### [address] Erythrocyte distribution width (RBC) [Ratio] 13.3 % Normal 11.9-15.3 [facility] Comment on above: Performed By: #### H EPATIC, PHOS, MG, HS TROP, CBC, BMP #### [address] Hematocrit (Bld) [Volume fraction] 32.4 % Low 34.0-46.4 [facility] Comment on above: Performed By: #### H EPATIC, PHOS, MG, HS TROP, CBC, BMP #### [address] Hemoglobin (Bld) [Mass/Vol] 10.8 g/dL Low 11.8-15.4 [facility] Comment on above: Performed By: #### H EPATIC, PHOS, MG, HS TROP, CBC, BMP #### [address] [place] [address] [place] Lymphocytes/100 WBC (Bld) 25 % Normal 18-42 [facility] Comment on above: Performed By: #### H EPATIC, PHOS, MG, HS TROP, CBC, BMP #### [address] MCH (RBC) [Entitic mass] 31.7 pg Normal 24.7-34.3 [facility] Comment on above: Performed By: #### H EPATIC, PHOS, MG, HS TROP, CBC, BMP #### [address] MCV (RBC) [Entitic vol] 95.2 fL Normal 80-100 [facility] Comment on above: Performed By: #### H EPATIC, PHOS, MG, HS TROP, CBC, BMP #### [address] Mean Corpuscular HGB Conc 33.3 g/dL Normal 32.0-35.0 [facility] Comment on above: Performed By: #### H EPATIC, PHOS, MG, HS TROP, CBC, BMP #### [address] Metamyelocytes 1 % High 0-0 [facility] Comment on above: Performed By: #### H EPATIC, PHOS, MG, HS TROP, CBC, BMP #### [address] Monocytes/100 WBC (Bld) 5 % Normal 2-11 [facility] Comment on above: Performed By: #### H EPATIC, PHOS, MG, HS TROP, CBC, BMP #### [address] Nucleated RBC/100 WBC (Bld) [Ratio] 0.1 % Normal 0-0.5 [facility] Comment on above: Result Comment: PERF ORMED BY: [place] [address] PATHOLOGIST DELIVERY DRIVER DANIELLE ANDERSON M.D. Performed By: #### H EPATIC, PHOS, MG, HS TROP, CBC, BMP #### [facility] [address] Platelet Estimate Normal Normal Normal [facility] Comment on above: Performed By: #### H EPATIC, PHOS, MG, HS TROP, CBC, BMP #### [facility] [address] Platelet mean volume (Bld) [Entitic vol] 8.1 fL Normal 6.3-10.7 [facility] Comment on above: Performed By: #### H EPATIC, PHOS, MG, HS TROP, CBC, BMP #### [facility] [address] Platelet Morphology Normal Normal Normal [facility] Comment on above: Result Comment: PERF ORMED BY: [place] [address] PATHOLOGIST DELIVERY DRIVER DANIELLE ANDERSON M.D. Performed By: #### H EPATIC, PHOS, MG, HS TROP, CBC, BMP #### [address] Platelets (Bld) [#/Vol] 391 10*3/uL Normal 150-450 [facility] Comment on above: Performed By: #### H EPATIC, PHOS, MG, HS TROP, CBC, BMP #### [address] RBC (Bld) [#/Vol] 3.40 10*6/uL Low 3.60-5.00 [facility] Comment on above: Performed By: #### H EPATIC, PHOS, MG, HS TROP, CBC, BMP #### [address] RBC morphology finding Nom (Bld) Normal Normal [facility] Comment on above: Performed By: #### H EPATIC, PHOS, MG, HS TROP, CBC, BMP #### [address] Segmented neutrophils/100 WBC (Bld) 68 % Normal 50-70 [facility] Comment on above: Performed By: #### H EPATIC, PHOS, MG, HS TROP, CBC, BMP #### [facility] [address] [place] [address] WBC (Bld) [#/Vol] 5.8 10*3/uL Normal 4.5-11.0 [facility] Comment on above: Performed By: #### H EPATIC, PHOS, MG, HS TROP, CBC, BMP #### [address] Dipstick and Microscopicon 1 04-16-2020 Appearance (U) Cloudy Critically abnormal Clear [facility] Comment on above: Order Comment: Name Collection Type:: Voided Performed By: #### H EPATIC, PHOS, MG, HS TROP, CBC, BMP #### [address] Bacteria,Urine 1+ High None Seen [facility] Comment on above: Order Comment: Name Collection Type:: Voided Performed By: #### H EPATIC, PHOS, MG, HS TROP, CBC, BMP #### [address] Bilirubin,Urine Negative Normal Negative [facility] Comment on above: Order Comment: Name Collection Type:: Voided Performed By: #### H EPATIC, PHOS, MG, HS TROP, CBC, BMP #### [address] Color (U) Dark Yellow Critically abnormal Yellow [facility] Comment on above: Order Comment: Name Collection Type:: Voided Performed By: #### H EPATIC, PHOS, MG, HS TROP, CBC, BMP #### [address] Glucose Ql (U) Normal Normal Normal [facility] Comment on above: Order Comment: Name Collection Type:: Voided Performed By: #### H EPATIC, PHOS, MG, HS TROP, CBC, BMP #### [place] [address] [place] Hyaline Casts,Urine 9-19 High 0-8 [facility] Comment on above: Order Comment: Name Collection Type:: Voided Result Comment: PERF ORMED BY: [place] [address] PATHOLOGIST DELIVERY DRIVER DANIELLE ANDERSON M.D. Performed By: #### H EPATIC, PHOS, MG, HS TROP, CBC, BMP #### [facility] [address] [place] [address] Ketones Ql (U) 1+ High Negative [facility] Comment on above: Order Comment: Name Collection Type:: Voided Performed By: #### H EPATIC, PHOS, MG, HS TROP, CBC, BMP #### [address] Leukocyte esterase Test strip Ql (U) 1+ High Negative [facility] Comment on above: Order Comment: Name Collection Type:: Voided Performed By: #### H EPATIC, PHOS, MG, HS TROP, CBC, BMP #### [address] Nitrite,Urine Negative Normal Negative [facility] Comment on above: Order Comment: Name Collection Type:: Voided Performed By: #### H EPATIC, PHOS, MG, HS TROP, CBC, BMP #### [address] Occult Blood,Urine Negative Normal Negative [facility] Comment on above: Order Comment: Name Collection Type:: Voided Result Comment: PERF ORMED BY: [place] [address] PATHOLOGIST DELIVERY DRIVER DANIELLE ANDERSON M.D. Performed By: #### H EPATIC, PHOS, MG, HS TROP, CBC, BMP #### [address] pH (U) 5.5 [pH] Normal 5.0-9.0 [facility] Comment on above: Order Comment: Name Collection Type:: Voided Performed By: #### H EPATIC, PHOS, MG, HS TROP, CBC, BMP #### [facility] [address] [place] [address] Protein (U) [Mass/Vol] 30 mg/dL High Negative [facility] Comment on above: Order Comment: Name Collection Type:: Voided Performed By: #### H EPATIC, PHOS, MG, HS TROP, CBC, BMP #### [address] RBC,Urine None Seen Normal 0-4 [facility] Comment on above: Order Comment: Name Collection Type:: Voided Performed By: #### H EPATIC, PHOS, MG, HS TROP, CBC, BMP #### [address] Specificy [place],Urine 1.034 High 1.001-1.030 [facility] Comment on above: Order Comment: Name Collection Type:: Voided Performed By: #### H EPATIC, PHOS, MG, HS TROP, CBC, BMP #### [address] Squamous Epithelial Cell,Urine 10-19 High 0-2 [facility] Comment on above: Order Comment: Name Collection Type:: Voided Performed By: #### H EPATIC, PHOS, MG, HS TROP, CBC, BMP #### [address] Urobilinogen,Urine Normal Normal Normal [facility] Comment on above: Order Comment: Name Collection Type:: Voided Performed By: #### H EPATIC, PHOS, MG, HS TROP, CBC, BMP #### [address] WBC,Urine 10-19 High 0-4 [facility] Comment on above: Order Comment: Name Collection Type:: Voided Performed By: #### H EPATIC, PHOS, MG, HS TROP, CBC, BMP #### [facility] [address] [place] [address] Urine Cultureon 02-14-2021 Bacteria identified Cx Nom (U) ORGANISM: Enterococcus faecalis (O:ENTFAC) [place] Count >100,000 Aerobic YUN Charge (PC45) -- SUSCEPTIBILITY - ORGANISM: O:ENTFAC ANTIBIOTIC INTERPRETATION YUN Ampicillin S <2 Ciprofloxacin S <1 Daptomycin S <1 Levofloxacin S <1 Linezolid S <2 Nitrofurantoin S <32 Penicillin S 2 Rifampin S <1 Tetracycline S <4 Vancomycin S 1 S = SUSCEPTIBLE I = INTERMEDIATE R = RESISTANT BLANK = DATA NOT AVAILABLE, OR DRUG NOT ADVISABLE OR TESTED R* = RESISTANCE DUE TO EXTENDED SPECTRUM BETA-LACTAMASES ESBL = EXTENDED SPECTRUM BETA-LACTAMASE TFG = THYMIDINE-DEPENDENT STRAIN KRISTEN = BETA-LACTAMASE POSITIVE IB = INDUCIBLE BETA-LACTAMASE. APPEARS IN PLACE OF 'S' WITH SPECIES KNOWN TO POSSESS INDUCIBLE BETA-LACTAMASES. POTENTIALLY THEY MAY BECOME RESISTANT TO ALL B-LACTAM DRUGS. PERFORMED BY: [place] [address] PATHOLOGIST DELIVERY DRIVER DANIELLE ANDERSON M.D. [facility] Comment on above: Performed By: #### H EPATIC, PHOS, MG, HS TROP, CBC, BMP #### [facility] [address] [place] [address] Comprehensive Metabolic Pane veronique 02-13-2021 Albumin [Mass/Vol] 2.2 g/dL Low 3.2-5.5 [facility] Comment on above: Performed By: #### H EPATIC, PHOS, MG, HS TROP, CBC, BMP #### [facility] [address] [place] [address] Albumin/Globulin [Mass ratio] 0.7 {ratio} [facility] Comment on above: Performed By: #### H EPATIC, PHOS, MG, HS TROP, CBC, BMP #### [facility] [address] [place] [address] ALP [Catalytic activity/Vol] 62 U/L Normal 32- [facility] Comment on above: Performed By: #### H EPATIC, PHOS, MG, HS TROP, CBC, BMP #### [facility] [address] [place] [address] ALT [Catalytic activity/Vol] 57 U/L Normal 10-60 [facility] Comment on above: Performed By: #### H EPATIC, PHOS, MG, HS TROP, CBC, BMP #### [address] AST [Catalytic activity/Vol] 119 U/L High 10-42 [facility] Comment on above: Performed By: #### H EPATIC, PHOS, MG, HS TROP, CBC, BMP #### [facility] [address] [place] [address] Bilirubin [Mass/Vol] 0.2 mg/dL Low 0.3-1.2 [facility] Comment on above: Performed By: #### H EPATIC, PHOS, MG, HS TROP, CBC, BMP #### [address] Calcium [Mass/Vol] 8.4 mg/dL Normal 8.2-10.2 [facility] Comment on above: Performed By: #### H EPATIC, PHOS, MG, HS TROP, CBC, BMP #### [address] Chloride [Moles/Vol] 104 mmol/L Normal 95-114 [facility] Comment on above: Performed By: #### H EPATIC, PHOS, MG, HS TROP, CBC, BMP #### [facility] [address] [place] [address] CO2 [Moles/Vol] 25.6 mmol/L Normal 22.0-30.0 [facility] Comment on above: Performed By: #### H EPATIC, PHOS, MG, HS TROP, CBC, BMP #### [address] Creatinine [Mass/Vol] 0.67 mg/dL Normal 0.44-1.03 [facility] Comment on above: Performed By: #### H EPATIC, PHOS, MG, HS TROP, CBC, BMP #### [address] Creatinine Clr Calc Pharmacy 115.74 [facility] Comment on above: Result Comment: PERF ORMED BY: [place] [address] PATHOLOGIST DELIVERY DRIVER DANIELLE ANDERSON M.D. Performed By: #### H EPATIC, PHOS, MG, HS TROP, CBC, BMP #### [address] Estimated GFR ( Prerna > 60 [facility] Comment on above: Result Comment: GFR estimated reference range: According to KDOQI guidelines, <60 ml/min/1.73m2 is sufficient to diagnose a patient with chronic kidney disease. Performed By: #### H EPATIC, PHOS, MG, HS TROP, CBC, BMP #### [address] Estimated GFR (Non- Am > 60 [facility] Comment on above: Performed By: #### H EPATIC, PHOS, MG, HS TROP, CBC, BMP #### [address] Globulin (S) [Mass/Vol] 3.1 g/dL Normal [facility] Comment on above: Performed By: #### H EPATIC, PHOS, MG, HS TROP, CBC, BMP #### [address] Glucose [Mass/Vol] 121 mg/dL High 70-100 [facility] Comment on above: Result Comment: [place] Glucose Reference Range is dependent on time and content of last meal. Glucose of more than 200 mg/dL in a nonstressed, ambulatory subject supports the diagnosis of Diabetes Mellitus. ADA recommended reference range Performed By: #### H EPATIC, PHOS, MG, HS TROP, CBC, BMP #### [address] Potassium [Moles/Vol] 3.6 mmol/L Normal 3.5-5.1 [facility] Comment on above: Performed By: #### H EPATIC, PHOS, MG, HS TROP, CBC, BMP #### [facility] [address] Protein [Mass/Vol] 5.3 g/dL Low 6.1-7.9 [facility] Comment on above: Performed By: #### H EPATIC, PHOS, MG, HS TROP, CBC, BMP #### [address] Sodium [Moles/Vol] 139 mmol/L Normal 136-146 [facility] Comment on above: Performed By: #### H EPATIC, PHOS, MG, HS TROP, CBC, BMP #### [address] Urea nitrogen [Mass/Vol] 7 mg/dL Low 9-23 [facility] Comment on above: Performed By: #### H EPATIC, PHOS, MG, HS TROP, CBC, BMP #### [address] D-Dimer High Sensitivityon 1 04-15-2020 D-Dimer High Sensitivity 404 ng/mL High 0-243 [facility] Comment on above: Result Comment: The reference range for D-dimer is <243 ng/mL D-dimer units. D-dimer results must be used in conjunction with a clinical pretest probability (PTP) assessment model for deep vein thrombosis (DVT) and pulmonary embolism (PE). Results <230 ng/mL d-dimer units can be used as a negative predictor in patients with low or moderate probability for DVT/PE. Results above the exclusion threshold of 230 ng/ml D-dimer units for DVT/PE may indicate the need for further diagnostic testing. D-Dimer can be increased in hospitalized patients due to co-morbid conditions. PERFORMED BY: [place] [address] PATHOLOGIST DELIVERY DRIVER DANIELLE ANDERSON M.D. Performed By: #### H EPATIC, PHOS, MG, HS TROP, CBC, BMP #### [address] Diff and CBCon 02-13-2021 Erythrocyte distribution width (RBC) [Ratio] 13.4 % Normal 11.9-15.3 [facility] Comment on above: Performed By: #### H EPATIC, PHOS, MG, HS TROP, CBC, BMP #### [address] Hematocrit (Bld) [Volume fraction] 33.2 % Low 34.0-46.4 [facility] Comment on above: Performed By: #### H EPATIC, PHOS, MG, HS TROP, CBC, BMP #### [address] Hemoglobin (Bld) [Mass/Vol] 11.0 g/dL Low 11.8-15.4 [facility] Comment on above: Performed By: #### H EPATIC, PHOS, MG, HS TROP, CBC, BMP #### [address] Lymphocytes/100 WBC (Bld) 15 % Low 18-42 [facility] Comment on above: Performed By: #### H EPATIC, PHOS, MG, HS TROP, CBC, BMP #### [address] MCH (RBC) [Entitic mass] 31.4 pg Normal 24.7-34.3 [facility] Comment on above: Performed By: #### H EPATIC, PHOS, MG, HS TROP, CBC, BMP #### [address] MCV (RBC) [Entitic vol] 94.6 fL Normal 80-100 [facility] Comment on above: Performed By: #### H EPATIC, PHOS, MG, HS TROP, CBC, BMP #### [address] Mean Corpuscular HGB Conc 33.2 g/dL Normal 32.0-35.0 [facility] Comment on above: Performed By: #### H EPATIC, PHOS, MG, HS TROP, CBC, BMP #### [address] Metamyelocytes 2 % High 0-0 [facility] Comment on above: Performed By: #### H EPATIC, PHOS, MG, HS TROP, CBC, BMP #### [address] Monocytes/100 WBC (Bld) 11 % Normal 2-11 [facility] Comment on above: Performed By: #### H EPATIC, PHOS, MG, HS TROP, CBC, BMP #### [address] Nucleated RBC/100 WBC (Bld) [Ratio] 0.1 % Normal 0-0.5 [facility] Comment on above: Performed By: #### H EPATIC, PHOS, MG, HS TROP, CBC, BMP #### [address] Platelet Estimate Normal Normal Normal [facility] Comment on above: Performed By: #### H EPATIC, PHOS, MG, HS TROP, CBC, BMP #### [address] Platelet mean volume (Bld) [Entitic vol] 7.8 fL Normal 6.3-10.7 [facility] Comment on above: Performed By: #### H EPATIC, PHOS, MG, HS TROP, CBC, BMP #### [address] Platelet Morphology Normal Normal Normal [facility] Comment on above: Result Comment: PERF ORMED BY: [place] [address] PATHOLOGIST DELIVERY DRIVER DANIELLE ANDERSON M.D. Performed By: #### H EPATIC, PHOS, MG, HS TROP, CBC, BMP #### [place] [address] [place] Platelets (Bld) [#/Vol] 387 10*3/uL Normal 150-450 [facility] Comment on above: Performed By: #### H EPATIC, PHOS, MG, HS TROP, CBC, BMP #### [place] [id number] [place] RBC (Bld) [#/Vol] 3.51 10*6/uL Low 3.60-5.00 [facility] Comment on above: Performed By: #### H EPATIC, PHOS, MG, HS TROP, CBC, BMP #### [address] RBC morphology finding Nom (Bld) Normal Normal [facility] Comment on above: Performed By: #### H EPATIC, PHOS, MG, HS TROP, CBC, BMP #### [address] Segmented neutrophils/100 WBC (Bld) 72 % High 50-70 [facility] Comment on above: Performed By: #### H EPATIC, PHOS, MG, HS TROP, CBC, BMP #### [address] WBC (Bld) [#/Vol] 6.1 10*3/uL Normal 4.5-11.0 [facility] Comment on above: Performed By: #### H EPATIC, PHOS, MG, HS TROP, CBC, BMP #### [address] Complete Blood Count Auto Di ffon 02-12-2021 Basophils (Bld) [#/Vol] 0.0 10*3/uL Normal 0.0-0.2 [facility] Comment on above: Result Comment: PERF ORMED BY: [place] [address] PATHOLOGIST DELIVERY DRIVER DANIELLE ANDERSON M.D. Performed By: #### H EPATIC, PHOS, MG, HS TROP, CBC, BMP #### [address] Basophils/100 WBC (Bld) 0.4 % Normal . [facility] Comment on above: Performed By: #### H EPATIC, PHOS, MG, HS TROP, CBC, BMP #### [address] Eosinophils (Bld) [#/Vol] 0.0 10*3/uL Normal 0.0-0.45 [facility] Comment on above: Performed By: #### H EPATIC, PHOS, MG, HS TROP, CBC, BMP #### [address] Eosinophils/100 WBC (Bld) 0.0 % Normal . [facility] Comment on above: Performed By: #### H EPATIC, PHOS, MG, HS TROP, CBC, BMP #### [address] Erythrocyte distribution width (RBC) [Ratio] 13.4 % Normal 11.9-15.3 [facility] Comment on above: Performed By: #### H EPATIC, PHOS, MG, HS TROP, CBC, BMP #### [address] Hematocrit (Bld) [Volume fraction] 34.1 % Normal 34.0-46.4 [facility] Comment on above: Performed By: #### H EPATIC, PHOS, MG, HS TROP, CBC, BMP #### [address] Hemoglobin (Bld) [Mass/Vol] 11.3 g/dL Low 11.8-15.4 [facility] Comment on above: Performed By: #### H EPATIC, PHOS, MG, HS TROP, CBC, BMP #### [address] Lymphocytes (Bld) [#/Vol] 1.1 10*3/uL Normal 1.00-4.8 [facility] Comment on above: Performed By: #### H EPATIC, PHOS, MG, HS TROP, CBC, BMP #### [address] Lymphocytes/100 WBC (Bld) 24.7 % Normal . [facility] Comment on above: Performed By: #### H EPATIC, PHOS, MG, HS TROP, CBC, BMP #### [place] [id number] [place] MCH (RBC) [Entitic mass] 31.6 pg Normal 24.7-34.3 [facility] Comment on above: Performed By: #### H EPATIC, PHOS, MG, HS TROP, CBC, BMP #### [address] MCV (RBC) [Entitic vol] 95.8 fL Normal 80-100 [facility] Comment on above: Performed By: #### H EPATIC, PHOS, MG, HS TROP, CBC, BMP #### [address] Mean Corpuscular HGB Conc 33.0 g/dL Normal 32.0-35.0 [facility] Comment on above: Performed By: #### H EPATIC, PHOS, MG, HS TROP, CBC, BMP #### [address] Monocytes (Bld) [#/Vol] 0.6 10*3/uL Normal 0.0-0.8 [facility] Comment on above: Performed By: #### H EPATIC, PHOS, MG, HS TROP, CBC, BMP #### [address] Monocytes/100 WBC (Bld) 13.1 % Normal . [facility] Comment on above: Performed By: #### H EPATIC, PHOS, MG, HS TROP, CBC, BMP #### [address] Neutrophils (Bld) [#/Vol] 2.8 10*3/uL Normal 1.8-7.7 [facility] Comment on above: Performed By: #### H EPATIC, PHOS, MG, HS TROP, CBC, BMP #### [address] Neutrophils/100 WBC (Bld) 61.8 % Normal . [facility] Comment on above: Performed By: #### H EPATIC, PHOS, MG, HS TROP, CBC, BMP #### [address] [place] [address] [place] Nucleated RBC/100 WBC (Bld) [Ratio] 0.1 % Normal 0-0.5 [facility] Comment on above: Performed By: #### H EPATIC, PHOS, MG, HS TROP, CBC, BMP #### [facility] [address] Platelet mean volume (Bld) [Entitic vol] 8.3 fL Normal 6.3-10.7 [facility] Comment on above: Performed By: #### H EPATIC, PHOS, MG, HS TROP, CBC, BMP #### [address] Platelets (Bld) [#/Vol] 304 10*3/uL Normal 150-450 [facility] Comment on above: Performed By: #### H EPATIC, PHOS, MG, HS TROP, CBC, BMP #### [address] RBC (Bld) [#/Vol] 3.56 10*6/uL Low 3.60-5.00 [facility] Comment on above: Performed By: #### H EPATIC, PHOS, MG, HS TROP, CBC, BMP #### [address] WBC (Bld) [#/Vol] 4.6 10*3/uL Normal 4.5-11.0 [facility] Comment on above: Performed By: #### H EPATIC, PHOS, MG, HS TROP, CBC, BMP #### [address] Comprehensive Metabolic Pane veronique 02-12-2021 Albumin [Mass/Vol] 2.2 g/dL Low 3.2-5.5 [facility] Comment on above: Performed By: #### H EPATIC, PHOS, MG, HS TROP, CBC, BMP #### [address] Albumin/Globulin [Mass ratio] 0.7 {ratio} Normal [facility] Comment on above: Performed By: #### H EPATIC, PHOS, MG, HS TROP, CBC, BMP #### [facility] [address] ALP [Catalytic activity/Vol] 55 U/L Normal 32-92 [facility] Comment on above: Performed By: #### H EPATIC, PHOS, MG, HS TROP, CBC, BMP #### [facility] [address] ALT [Catalytic activity/Vol] 35 U/L Normal 10-60 [facility] Comment on above: Performed By: #### H EPATIC, PHOS, MG, HS TROP, CBC, BMP #### [address] AST [Catalytic activity/Vol] 60 U/L High 10-42 [facility] Comment on above: Performed By: #### H EPATIC, PHOS, MG, HS TROP, CBC, BMP #### [address] Bilirubin [Mass/Vol] 0.4 mg/dL Normal 0.3-1.2 [facility] Comment on above: Performed By: #### H EPATIC, PHOS, MG, HS TROP, CBC, BMP #### [address] Calcium [Mass/Vol] 8.3 mg/dL Normal 8.2-10.2 [facility] Comment on above: Performed By: #### H EPATIC, PHOS, MG, HS TROP, CBC, BMP #### [facility] [address] [place] [address] Chloride [Moles/Vol] 104 mmol/L Normal 95-114 [facility] Comment on above: Performed By: #### H EPATIC, PHOS, MG, HS TROP, CBC, BMP #### [address] CO2 [Moles/Vol] 23.6 mmol/L Normal 22.0-30.0 [facility] Comment on above: Performed By: #### H EPATIC, PHOS, MG, HS TROP, CBC, BMP #### [facility] [address] Creatinine [Mass/Vol] 0.69 mg/dL Normal 0.44-1.03 [facility] Comment on above: Performed By: #### H EPATIC, PHOS, MG, HS TROP, CBC, BMP #### [address] Creatinine Clr Calc Pharmacy 112.39 [facility] Comment on above: Result Comment: PERF ORMED BY: [place] [address] PATHOLOGIST DELIVERY DRIVER DANIELLE ANDERSON M.D. Performed By: #### H EPATIC, PHOS, MG, HS TROP, CBC, BMP #### [address] Estimated GFR ( Prerna > 60 [facility] Comment on above: Result Comment: GFR estimated reference range: According to KDOQI guidelines, <60 ml/min/1.73m2 is sufficient to diagnose a patient with chronic kidney disease. Performed By: #### H EPATIC, PHOS, MG, HS TROP, CBC, BMP #### [address] Estimated GFR (Non- Am > 60 [facility] Comment on above: Performed By: #### H EPATIC, PHOS, MG, HS TROP, CBC, BMP #### [facility] [address] [place] [address] Globulin (S) [Mass/Vol] 3.2 g/dL [facility] Comment on above: Performed By: #### H EPATIC, PHOS, MG, HS TROP, CBC, BMP #### [address] Glucose [Mass/Vol] 113 mg/dL High 70-100 [facility] Comment on above: Result Comment: [place] Glucose Reference Range is dependent on time and content of last meal. Glucose of more than 200 mg/dL in a nonstressed, ambulatory subject supports the diagnosis of Diabetes Mellitus. ADA recommended reference range Performed By: #### H EPATIC, PHOS, MG, HS TROP, CBC, BMP #### [address] Potassium [Moles/Vol] 3.6 mmol/L Normal 3.5-5.1 [facility] Comment on above: Performed By: #### H EPATIC, PHOS, MG, HS TROP, CBC, BMP #### [address] Protein [Mass/Vol] 5.4 g/dL Low 6.1-7.9 [facility] Comment on above: Performed By: #### H EPATIC, PHOS, MG, HS TROP, CBC, BMP #### [address] Sodium [Moles/Vol] 138 mmol/L Normal 136-146 [facility] Comment on above: Performed By: #### H EPATIC, PHOS, MG, HS TROP, CBC, BMP #### [address] Urea nitrogen [Mass/Vol] 11 mg/dL Normal 9-23 [facility] Comment on above: Performed By: #### H EPATIC, PHOS, MG, HS TROP, CBC, BMP #### [address] D-Dimer High Sensitivityon 1 04-14-2020 D-Dimer High Sensitivity 706 ng/mL High 0-243 [facility] Comment on above: Result Comment: The reference range for D-dimer is <243 ng/mL D-dimer units. D-dimer results must be used in conjunction with a clinical pretest probability (PTP) assessment model for deep vein thrombosis (DVT) and pulmonary embolism (PE). Results <230 ng/mL d-dimer units can be used as a negative predictor in patients with low or moderate probability for DVT/PE. Results above the exclusion threshold of 230 ng/ml D-dimer units for DVT/PE may indicate the need for further diagnostic testing. D-Dimer can be increased in hospitalized patients due to co-morbid conditions. PERFORMED BY: [place] [address] PATHOLOGIST DELIVERY DRIVER DANIELLE ANDERSON M.D. Performed By: #### H EPATIC, PHOS, MG, HS TROP, CBC, BMP #### [address] Complete Blood Count Auto Di ffon 02-11-2021 Basophils (Bld) [#/Vol] 0.0 10*3/uL Normal 0.0-0.2 [facility] Comment on above: Result Comment: PERF ORMED BY: [place] [address] PATHOLOGIST DELIVERY DRIVER DANIELLE ANDERSON M.D. Performed By: #### H EPATIC, PHOS, MG, HS TROP, CBC, BMP #### [address] Basophils/100 WBC (Bld) 0.1 % Normal . [facility] Comment on above: Performed By: #### H EPATIC, PHOS, MG, HS TROP, CBC, BMP #### [address] Eosinophils (Bld) [#/Vol] 0.0 10*3/uL Normal 0.0-0.45 [facility] Comment on above: Performed By: #### H EPATIC, PHOS, MG, HS TROP, CBC, BMP #### [address] Eosinophils/100 WBC (Bld) 0.0 % Normal . [facility] Comment on above: Performed By: #### H EPATIC, PHOS, MG, HS TROP, CBC, BMP #### [address] Erythrocyte distribution width (RBC) [Ratio] 13.2 % Normal 11.9-15.3 [facility] Comment on above: Performed By: #### H EPATIC, PHOS, MG, HS TROP, CBC, BMP #### [address] Hematocrit (Bld) [Volume fraction] 31.9 % Low 34.0-46.4 [facility] Comment on above: Performed By: #### H EPATIC, PHOS, MG, HS TROP, CBC, BMP #### [address] Hemoglobin (Bld) [Mass/Vol] 10.8 g/dL Low 11.8-15.4 [facility] Comment on above: Performed By: #### H EPATIC, PHOS, MG, HS TROP, CBC, BMP #### [address] Lymphocytes (Bld) [#/Vol] 0.7 10*3/uL Low 1.00-4.8 [facility] Comment on above: Performed By: #### H EPATIC, PHOS, MG, HS TROP, CBC, BMP #### [address] Lymphocytes/100 WBC (Bld) 17.2 % Normal . [facility] Comment on above: Performed By: #### H EPATIC, PHOS, MG, HS TROP, CBC, BMP #### [address] MCH (RBC) [Entitic mass] 32.1 pg Normal 24.7-34.3 [facility] Comment on above: Performed By: #### H EPATIC, PHOS, MG, HS TROP, CBC, BMP #### [address] MCV (RBC) [Entitic vol] 94.4 fL Normal 80-100 [facility] Comment on above: Performed By: #### H EPATIC, PHOS, MG, HS TROP, CBC, BMP #### [address] Mean Corpuscular HGB Conc 34.0 g/dL Normal 32.0-35.0 [facility] Comment on above: Performed By: #### H EPATIC, PHOS, MG, HS TROP, CBC, BMP #### [address] Monocytes (Bld) [#/Vol] 0.5 10*3/uL Normal 0.0-0.8 [facility] Comment on above: Performed By: #### H EPATIC, PHOS, MG, HS TROP, CBC, BMP #### [facility] [address] Monocytes/100 WBC (Bld) 11.8 % Normal . [facility] Comment on above: Performed By: #### H EPATIC, PHOS, MG, HS TROP, CBC, BMP #### [facility] [address] Neutrophils (Bld) [#/Vol] 2.9 10*3/uL Normal 1.8-7.7 [facility] Comment on above: Performed By: #### H EPATIC, PHOS, MG, HS TROP, CBC, BMP #### [address] Neutrophils/100 WBC (Bld) 70.9 % Normal . [facility] Comment on above: Performed By: #### H EPATIC, PHOS, MG, HS TROP, CBC, BMP #### [address] Nucleated RBC/100 WBC (Bld) [Ratio] 0.0 % Normal 0-0.5 [facility] Comment on above: Performed By: #### H EPATIC, PHOS, MG, HS TROP, CBC, BMP #### [facility] [address] [place] [address] [place] Platelet mean volume (Bld) [Entitic vol] 7.9 fL Normal 6.3-10.7 [facility] Comment on above: Performed By: #### H EPATIC, PHOS, MG, HS TROP, CBC, BMP #### [facility] [address] [place] [address] [place] Platelets (Bld) [#/Vol] 256 10*3/uL Normal 150-450 [facility] Comment on above: Performed By: #### H EPATIC, PHOS, MG, HS TROP, CBC, BMP #### [address] [place] [address] [place] RBC (Bld) [#/Vol] 3.38 10*6/uL Low 3.60-5.00 [facility] Comment on above: Performed By: #### H EPATIC, PHOS, MG, HS TROP, CBC, BMP #### [address] WBC (Bld) [#/Vol] 4.1 10*3/uL Low 4.5-11.0 [facility] Comment on above: Performed By: #### H EPATIC, PHOS, MG, HS TROP, CBC, BMP #### [facility] [address] [place] [address] Comprehensive Metabolic Pane veronique 02-11-2021 Albumin [Mass/Vol] 2.1 g/dL Low 3.2-5.5 [facility] Comment on above: Performed By: #### H EPATIC, PHOS, MG, HS TROP, CBC, BMP #### [address] Albumin/Globulin [Mass ratio] 0.6 {ratio} Normal [facility] Comment on above: Performed By: #### H EPATIC, PHOS, MG, HS TROP, CBC, BMP #### [address] ALP [Catalytic activity/Vol] 57 U/L Normal 32-92 [facility] Comment on above: Performed By: #### H EPATIC, PHOS, MG, HS TROP, CBC, BMP #### [address] ALT [Catalytic activity/Vol] 30 U/L Normal 10-60 [facility] Comment on above: Performed By: #### H EPATIC, PHOS, MG, HS TROP, CBC, BMP #### [address] AST [Catalytic activity/Vol] 38 U/L Normal 10-42 [facility] Comment on above: Performed By: #### H EPATIC, PHOS, MG, HS TROP, CBC, BMP #### [facility] [address] Bilirubin [Mass/Vol] 0.2 mg/dL Low 0.3-1.2 [facility] Comment on above: Performed By: #### H EPATIC, PHOS, MG, HS TROP, CBC, BMP #### [facility] [address] Calcium [Mass/Vol] 8.3 mg/dL Normal 8.2-10.2 [facility] Comment on above: Performed By: #### H EPATIC, PHOS, MG, HS TROP, CBC, BMP #### [facility] [address] Chloride [Moles/Vol] 103 mmol/L Normal 95-114 [facility] Comment on above: Performed By: #### H EPATIC, PHOS, MG, HS TROP, CBC, BMP #### [facility] [address] [place] [address] CO2 [Moles/Vol] 24.1 mmol/L Normal 22.0-30.0 [facility] Comment on above: Performed By: #### H EPATIC, PHOS, MG, HS TROP, CBC, BMP #### [address] Creatinine [Mass/Vol] 0.71 mg/dL Normal 0.44-1.03 [facility] Comment on above: Performed By: #### H EPATIC, PHOS, MG, HS TROP, CBC, BMP #### [facility] [address] Creatinine Clr Calc Pharmacy 110.27 [facility] Comment on above: Result Comment: PERF ORMED BY: [place] [address] PATHOLOGIST DELIVERY DRIVER DANIELLE ANDERSON M.D. Performed By: #### H EPATIC, PHOS, MG, HS TROP, CBC, BMP #### [address] Estimated GFR ( Prerna > 60 [facility] Comment on above: Result Comment: GFR estimated reference range: According to KDOQI guidelines, <60 ml/min/1.73m2 is sufficient to diagnose a patient with chronic kidney disease. Performed By: #### H EPATIC, PHOS, MG, HS TROP, CBC, BMP #### [facility] [address] Estimated GFR (Non- Am > 60 Normal [facility] Comment on above: Performed By: #### H EPATIC, PHOS, MG, HS TROP, CBC, BMP #### [address] Globulin (S) [Mass/Vol] 3.4 g/dL Normal [facility] Comment on above: Performed By: #### H EPATIC, PHOS, MG, HS TROP, CBC, BMP #### [address] Glucose [Mass/Vol] 106 mg/dL High 70-100 [facility] Comment on above: Result Comment: [place] Glucose Reference Range is dependent on time and content of last meal. Glucose of more than 200 mg/dL in a nonstressed, ambulatory subject supports the diagnosis of Diabetes Mellitus. ADA recommended reference range Performed By: #### H EPATIC, PHOS, MG, HS TROP, CBC, BMP #### [address] Potassium [Moles/Vol] 3.6 mmol/L Normal 3.5-5.1 [facility] Comment on above: Performed By: #### H EPATIC, PHOS, MG, HS TROP, CBC, BMP #### [address] Protein [Mass/Vol] 5.5 g/dL Low 6.1-7.9 [facility] Comment on above: Performed By: #### H EPATIC, PHOS, MG, HS TROP, CBC, BMP #### [address] Sodium [Moles/Vol] 138 mmol/L Normal 136-146 [facility] Comment on above: Performed By: #### H EPATIC, PHOS, MG, HS TROP, CBC, BMP #### [facility] [address] Urea nitrogen [Mass/Vol] 8 mg/dL Low 12-12 [facility] Comment on above: Performed By: #### H EPATIC, PHOS, MG, HS TROP, CBC, BMP #### [facility] [address] D-Dimer High Sensitivityon 1 04-13-2020 D-Dimer High Sensitivity 486 ng/mL High 0-243 [facility] Comment on above: Result Comment: The reference range for D-dimer is <243 ng/mL D-dimer units. D-dimer results must be used in conjunction with a clinical pretest probability (PTP) assessment model for deep vein thrombosis (DVT) and pulmonary embolism (PE). Results <230 ng/mL d-dimer units can be used as a negative predictor in patients with low or moderate probability for DVT/PE. Results above the exclusion threshold of 230 ng/ml D-dimer units for DVT/PE may indicate the need for further diagnostic testing. D-Dimer can be increased in hospitalized patients due to co-morbid conditions. PERFORMED BY: [place] [address] PATHOLOGIST DELIVERY DRIVER DANIELLE ANDERSON M.D. Performed By: #### H EPATIC, PHOS, MG, HS TROP, CBC, BMP #### [facility] [address] Complete Blood Count Auto Di ffon 02-10-2021 Basophils (Bld) [#/Vol] 0.0 10*3/uL Normal 0.0-0.2 [facility] Comment on above: Result Comment: PERF ORMED BY: [place] [address] PATHOLOGIST DELIVERY DRIVER DANIELLE ANDERSON M.D. Performed By: #### H EPATIC, PHOS, MG, HS TROP, CBC, BMP #### [facility] [address] Basophils/100 WBC (Bld) 0.1 % Normal . [facility] Comment on above: Performed By: #### H EPATIC, PHOS, MG, HS TROP, CBC, BMP #### [address] Eosinophils (Bld) [#/Vol] 0.0 10*3/uL Normal 0.0-0.45 [facility] Comment on above: Performed By: #### H EPATIC, PHOS, MG, HS TROP, CBC, BMP #### [address] Eosinophils/100 WBC (Bld) 0.0 % Normal . [facility] Comment on above: Performed By: #### H EPATIC, PHOS, MG, HS TROP, CBC, BMP #### [address] Erythrocyte distribution width (RBC) [Ratio] 13.3 % Normal 11.9-15.3 [facility] Comment on above: Performed By: #### H EPATIC, PHOS, MG, HS TROP, CBC, BMP #### [address] Hematocrit (Bld) [Volume fraction] 31.7 % Low 34.0-46.4 [facility] Comment on above: Performed By: #### H EPATIC, PHOS, MG, HS TROP, CBC, BMP #### [address] Hemoglobin (Bld) [Mass/Vol] 10.7 g/dL Low 11.8-15.4 [facility] Comment on above: Performed By: #### H EPATIC, PHOS, MG, HS TROP, CBC, BMP #### [address] Lymphocytes (Bld) [#/Vol] 0.5 10*3/uL Low 1.00-4.8 [facility] Comment on above: Performed By: #### H EPATIC, PHOS, MG, HS TROP, CBC, BMP #### [place] [address] [place] Lymphocytes/100 WBC (Bld) 10.0 % Normal . [facility] Comment on above: Performed By: #### H EPATIC, PHOS, MG, HS TROP, CBC, BMP #### [address] MCH (RBC) [Entitic mass] 32.1 pg Normal 24.7-34.3 [facility] Comment on above: Performed By: #### H EPATIC, PHOS, MG, HS TROP, CBC, BMP #### [address] MCV (RBC) [Entitic vol] 95.0 fL Normal 80-100 [facility] Comment on above: Performed By: #### H EPATIC, PHOS, MG, HS TROP, CBC, BMP #### [address] Mean Corpuscular HGB Conc 33.8 g/dL Normal 32.0-35.0 [facility] Comment on above: Performed By: #### H EPATIC, PHOS, MG, HS TROP, CBC, BMP #### [address] Monocytes (Bld) [#/Vol] 0.6 10*3/uL Normal 0.0-0.8 [facility] Comment on above: Performed By: #### H EPATIC, PHOS, MG, HS TROP, CBC, BMP #### [place] [address] [place] Monocytes/100 WBC (Bld) 11.2 % Normal . [facility] Comment on above: Performed By: #### H EPATIC, PHOS, MG, HS TROP, CBC, BMP #### [place] [address] [place] Neutrophils (Bld) [#/Vol] 4.3 10*3/uL Normal 1.8-7.7 [facility] Comment on above: Performed By: #### H EPATIC, PHOS, MG, HS TROP, CBC, BMP #### [place] [address] [place] Neutrophils/100 WBC (Bld) 78.7 % Normal . [facility] Comment on above: Performed By: #### H EPATIC, PHOS, MG, HS TROP, CBC, BMP #### [address] Nucleated RBC/100 WBC (Bld) [Ratio] 0.1 % Normal 0-0.5 [facility] Comment on above: Performed By: #### H EPATIC, PHOS, MG, HS TROP, CBC, BMP #### [address] Platelet mean volume (Bld) [Entitic vol] 8.7 fL Normal 6.3-10.7 [facility] Comment on above: Performed By: #### H EPATIC, PHOS, MG, HS TROP, CBC, BMP #### [address] Platelets (Bld) [#/Vol] 220 10*3/uL Normal 150-450 [facility] Comment on above: Performed By: #### H EPATIC, PHOS, MG, HS TROP, CBC, BMP #### [address] RBC (Bld) [#/Vol] 3.34 10*6/uL Low 3.60-5.00 [facility] Comment on above: Performed By: #### H EPATIC, PHOS, MG, HS TROP, CBC, BMP #### [address] WBC (Bld) [#/Vol] 5.4 10*3/uL Normal 4.5-11.0 [facility] Comment on above: Performed By: #### H EPATIC, PHOS, MG, HS TROP, CBC, BMP #### [address] Comprehensive Metabolic Pane veronique 02-10-2021 Albumin [Mass/Vol] 2.1 g/dL Low 3.2-5.5 [facility] Comment on above: Performed By: #### H EPATIC, PHOS, MG, HS TROP, CBC, BMP #### [address] Albumin/Globulin [Mass ratio] 0.6 {ratio} Normal [facility] Comment on above: Performed By: #### H EPATIC, PHOS, MG, HS TROP, CBC, BMP #### [address] ALP [Catalytic activity/Vol] 53 U/L Normal 32-92 [facility] Comment on above: Performed By: #### H EPATIC, PHOS, MG, HS TROP, CBC, BMP #### [address] ALT [Catalytic activity/Vol] 29 U/L Normal 10-60 [facility] Comment on above: Performed By: #### H EPATIC, PHOS, MG, HS TROP, CBC, BMP #### [address] AST [Catalytic activity/Vol] 44 U/L High 10-42 [facility] Comment on above: Performed By: #### H EPATIC, PHOS, MG, HS TROP, CBC, BMP #### [address] Bilirubin [Mass/Vol] 0.2 mg/dL Low 0.3-1.2 [facility] Comment on above: Performed By: #### H EPATIC, PHOS, MG, HS TROP, CBC, BMP #### [address] Calcium [Mass/Vol] 8.0 mg/dL Low 8.2-10.2 [facility] Comment on above: Performed By: #### H EPATIC, PHOS, MG, HS TROP, CBC, BMP #### [address] Chloride [Moles/Vol] 101 mmol/L Normal 95-114 [facility] Comment on above: Performed By: #### H EPATIC, PHOS, MG, HS TROP, CBC, BMP #### [address] [place] [address] [place] CO2 [Moles/Vol] 24.4 mmol/L Normal 22.0-30.0 [facility] Comment on above: Performed By: #### H EPATIC, PHOS, MG, HS TROP, CBC, BMP #### [address] Creatinine [Mass/Vol] 0.66 mg/dL Normal 0.44-1.03 [facility] Comment on above: Performed By: #### H EPATIC, PHOS, MG, HS TROP, CBC, BMP #### [address] Creatinine Clr Calc Pharmacy 119.04 [facility] Comment on above: Result Comment: PERF ORMED BY: [place] [address] PATHOLOGIST DELIVERY DRIVER DANIELLE ANDERSON M.D. Performed By: #### H EPATIC, PHOS, MG, HS TROP, CBC, BMP #### [address] Estimated GFR ( Prerna > 60 [facility] Comment on above: Result Comment: GFR estimated reference range: According to KDOQI guidelines, <60 ml/min/1.73m2 is sufficient to diagnose a patient with chronic kidney disease. Performed By: #### H EPATIC, PHOS, MG, HS TROP, CBC, BMP #### [facility] [address] [place] [address] Estimated GFR (Non- Am > 60 [facility] Comment on above: Performed By: #### H EPATIC, PHOS, MG, HS TROP, CBC, BMP #### [address] Globulin (S) [Mass/Vol] 3.3 g/dL [facility] Comment on above: Performed By: #### H EPATIC, PHOS, MG, HS TROP, CBC, BMP #### [address] Glucose [Mass/Vol] 110 mg/dL High 70-100 [facility] Comment on above: Result Comment: [place] Glucose Reference Range is dependent on time and content of last meal. Glucose of more than 200 mg/dL in a nonstressed, ambulatory subject supports the diagnosis of Diabetes Mellitus. ADA recommended reference range Performed By: #### H EPATIC, PHOS, MG, HS TROP, CBC, BMP #### [address] Potassium [Moles/Vol] 3.7 mmol/L Normal 3.5-5.1 [facility] Comment on above: Performed By: #### H EPATIC, PHOS, MG, HS TROP, CBC, BMP #### [address] Protein [Mass/Vol] 5.4 g/dL Low 6.1-7.9 [facility] Comment on above: Performed By: #### H EPATIC, PHOS, MG, HS TROP, CBC, BMP #### [address] Sodium [Moles/Vol] 135 mmol/L Low 136-146 [facility] Comment on above: Performed By: #### H EPATIC, PHOS, MG, HS TROP, CBC, BMP #### [address] Urea nitrogen [Mass/Vol] 12 mg/dL Normal 9-23 [facility] Comment on above: Performed By: #### H EPATIC, PHOS, MG, HS TROP, CBC, BMP #### [address] D-Dimer High Sensitivityon 1 04-12-2020 D-Dimer High Sensitivity 423 ng/mL High 0-243 [facility] Comment on above: Result Comment: The reference range for D-dimer is <243 ng/mL D-dimer units. D-dimer results must be used in conjunction with a clinical pretest probability (PTP) assessment model for deep vein thrombosis (DVT) and pulmonary embolism (PE). Results <230 ng/mL d-dimer units can be used as a negative predictor in patients with low or moderate probability for DVT/PE. Results above the exclusion threshold of 230 ng/ml D-dimer units for DVT/PE may indicate the need for further diagnostic testing. D-Dimer can be increased in hospitalized patients due to co-morbid conditions. PERFORMED BY: [place] [address] PATHOLOGIST DELIVERY DRIVER DANIELLE ANDERSON M.D. Performed By: #### H EPATIC, PHOS, MG, HS TROP, CBC, BMP #### [address] Complete Blood Count Auto Di ffon 02-09-2021 Basophils (Bld) [#/Vol] 0.0 10*3/uL Normal 0.0-0.2 [facility] Comment on above: Result Comment: PERF ORMED BY: [place] [address] PATHOLOGIST DELIVERY DRIVER DANIELLE ANDERSON M.D. Performed By: #### H EPATIC, PHOS, MG, HS TROP, CBC, BMP #### [address] Basophils/100 WBC (Bld) 0.1 % Normal . [facility] Comment on above: Performed By: #### H EPATIC, PHOS, MG, HS TROP, CBC, BMP #### [address] Eosinophils (Bld) [#/Vol] 0.0 10*3/uL Normal 0.0-0.45 [facility] Comment on above: Performed By: #### H EPATIC, PHOS, MG, HS TROP, CBC, BMP #### [address] Eosinophils/100 WBC (Bld) 0.0 % Normal . [facility] Comment on above: Performed By: #### H EPATIC, PHOS, MG, HS TROP, CBC, BMP #### [address] Erythrocyte distribution width (RBC) [Ratio] 13.1 % Normal 11.9-15.3 [facility] Comment on above: Performed By: #### H EPATIC, PHOS, MG, HS TROP, CBC, BMP #### [address] Hematocrit (Bld) [Volume fraction] 33.3 % Low 34.0-46.4 [facility] Comment on above: Performed By: #### H EPATIC, PHOS, MG, HS TROP, CBC, BMP #### [address] Hemoglobin (Bld) [Mass/Vol] 11.3 g/dL Low 11.8-15.4 [facility] Comment on above: Performed By: #### H EPATIC, PHOS, MG, HS TROP, CBC, BMP #### [address] Lymphocytes (Bld) [#/Vol] 0.5 10*3/uL Low 1.00-4.8 [facility] Comment on above: Performed By: #### H EPATIC, PHOS, MG, HS TROP, CBC, BMP #### [address] Lymphocytes/100 WBC (Bld) 8.1 % Normal . [facility] Comment on above: Performed By: #### H EPATIC, PHOS, MG, HS TROP, CBC, BMP #### [address] MCH (RBC) [Entitic mass] 32.1 pg Normal 24.7-34.3 [facility] Comment on above: Performed By: #### H EPATIC, PHOS, MG, HS TROP, CBC, BMP #### [address] MCV (RBC) [Entitic vol] 94.4 fL Normal 80-100 [facility] Comment on above: Performed By: #### H EPATIC, PHOS, MG, HS TROP, CBC, BMP #### [address] Mean Corpuscular HGB Conc 34.0 g/dL Normal 32.0-35.0 [facility] Comment on above: Performed By: #### H EPATIC, PHOS, MG, HS TROP, CBC, BMP #### [place] [address] [place] Monocytes (Bld) [#/Vol] 0.7 10*3/uL Normal 0.0-0.8 [facility] Comment on above: Performed By: #### H EPATIC, PHOS, MG, HS TROP, CBC, BMP #### [address] Monocytes/100 WBC (Bld) 11.2 % Normal . [facility] Comment on above: Performed By: #### H EPATIC, PHOS, MG, HS TROP, CBC, BMP #### [place] [address] [place] Neutrophils (Bld) [#/Vol] 5.0 10*3/uL Normal 1.8-7.7 [facility] Comment on above: Performed By: #### H EPATIC, PHOS, MG, HS TROP, CBC, BMP #### [place] [address] [place] Neutrophils/100 WBC (Bld) 80.6 % Normal . [facility] Comment on above: Performed By: #### H EPATIC, PHOS, MG, HS TROP, CBC, BMP #### [place] [address] [place] Nucleated RBC/100 WBC (Bld) [Ratio] 0.2 % Normal 0-0.5 [facility] Comment on above: Performed By: #### H EPATIC, PHOS, MG, HS TROP, CBC, BMP #### [place] [address] [place] Platelet mean volume (Bld) [Entitic vol] 8.9 fL Normal 6.3-10.7 [facility] Comment on above: Performed By: #### H EPATIC, PHOS, MG, HS TROP, CBC, BMP #### [place] [address] [place] Platelets (Bld) [#/Vol] 219 10*3/uL Normal 150-450 [facility] Comment on above: Performed By: #### H EPATIC, PHOS, MG, HS TROP, CBC, BMP #### [facility] [address] RBC (Bld) [#/Vol] 3.53 10*6/uL Low 3.60-5.00 [facility] Comment on above: Performed By: #### H EPATIC, PHOS, MG, HS TROP, CBC, BMP #### [facility] [address] WBC (Bld) [#/Vol] 6.3 10*3/uL Normal 4.5-11.0 [facility] Comment on above: Performed By: #### H EPATIC, PHOS, MG, HS TROP, CBC, BMP #### [facility] [address] [place] [address] Comprehensive Metabolic Pane veronique 02-09-2021 Albumin [Mass/Vol] 2.1 g/dL Low 3.2-5.5 [facility] Comment on above: Performed By: #### H EPATIC, PHOS, MG, HS TROP, CBC, BMP #### [address] Albumin/Globulin [Mass ratio] 0.6 {ratio} Normal [facility] Comment on above: Performed By: #### H EPATIC, PHOS, MG, HS TROP, CBC, BMP #### [facility] [address] [place] [address] ALP [Catalytic activity/Vol] 58 U/L Normal 32-92 [facility] Comment on above: Performed By: #### H EPATIC, PHOS, MG, HS TROP, CBC, BMP #### [facility] [address] [place] [address] ALT [Catalytic activity/Vol] 26 U/L Normal 10-60 [facility] Comment on above: Performed By: #### H EPATIC, PHOS, MG, HS TROP, CBC, BMP #### [facility] [address] AST [Catalytic activity/Vol] 33 U/L Normal 10-42 [facility] Comment on above: Performed By: #### H EPATIC, PHOS, MG, HS TROP, CBC, BMP #### [facility] [address] [place] [address] Bilirubin [Mass/Vol] 0.5 mg/dL Normal 0.3-1.2 [facility] Comment on above: Performed By: #### H EPATIC, PHOS, MG, HS TROP, CBC, BMP #### [address] Calcium [Mass/Vol] 8.1 mg/dL Low 8.2-10.2 [facility] Comment on above: Performed By: #### H EPATIC, PHOS, MG, HS TROP, CBC, BMP #### [facility] [address] [place] [address] Chloride [Moles/Vol] 99 mmol/L Normal 95-114 [facility] Comment on above: Performed By: #### H EPATIC, PHOS, MG, HS TROP, CBC, BMP #### [facility] [address] [place] [address] CO2 [Moles/Vol] 23.4 mmol/L Normal 22.0-30.0 [facility] Comment on above: Performed By: #### H EPATIC, PHOS, MG, HS TROP, CBC, BMP #### [facility] [address] [place] [address] Creatinine [Mass/Vol] 0.81 mg/dL Normal 0.44-1.03 [facility] Comment on above: Performed By: #### H EPATIC, PHOS, MG, HS TROP, CBC, BMP #### [facility] [address] [place] [address] Creatinine Clr Calc Pharmacy 96.75 Normal [facility] Comment on above: Result Comment: PERF ORMED BY: [place] [address] PATHOLOGIST DELIVERY DRIVER DANIELLE ANDERSON M.D. Performed By: #### H EPATIC, PHOS, MG, HS TROP, CBC, BMP #### [facility] [address] Estimated GFR ( Prerna > 60 Normal [facility] Comment on above: Result Comment: GFR estimated reference range: According to KDOQI guidelines, <60 ml/min/1.73m2 is sufficient to diagnose a patient with chronic kidney disease. Performed By: #### H EPATIC, PHOS, MG, HS TROP, CBC, BMP #### [facility] [address] Estimated GFR (Non- Am > 60 Normal [facility] [facility] Comment on above: Performed By: #### H EPATIC, PHOS, MG, HS TROP, CBC, BMP #### [facility] [address] Globulin (S) [Mass/Vol] 3.5 g/dL Normal [facility] Comment on above: Performed By: #### H EPATIC, PHOS, MG, HS TROP, CBC, BMP #### [facility] [address] Glucose [Mass/Vol] 124 mg/dL High 70-100 [facility] Comment on above: Result Comment: [place] Glucose Reference Range is dependent on time and content of last meal. Glucose of more than 200 mg/dL in a nonstressed, ambulatory subject supports the diagnosis of Diabetes Mellitus. ADA recommended reference range Performed By: #### H EPATIC, PHOS, MG, HS TROP, CBC, BMP #### [facility] [address] Potassium [Moles/Vol] 3.5 mmol/L Normal 3.5-5.1 [facility] Comment on above: Performed By: #### H EPATIC, PHOS, MG, HS TROP, CBC, BMP #### [address] Protein [Mass/Vol] 5.6 g/dL Low 6.1-7.9 [facility] Comment on above: Performed By: #### H EPATIC, PHOS, MG, HS TROP, CBC, BMP #### [facility] [address] [place] [id number] [facility] Sodium [Moles/Vol] 134 mmol/L Low 136-146 [facility] Comment on above: Performed By: #### H EPATIC, PHOS, MG, HS TROP, CBC, BMP #### [facility] [address] [place] [id number] [facility] Urea nitrogen [Mass/Vol] 13 mg/dL Normal 9-23 [facility] Comment on above: Performed By: #### H EPATIC, PHOS, MG, HS TROP, CBC, BMP #### [facility] [address] D-Dimer High Sensitivityon 1 04-11-2020 D-Dimer High Sensitivity 568 ng/mL High 0-243 [facility] Comment on above: Result Comment: The reference range for D-dimer is <243 ng/mL D-dimer units. D-dimer results must be used in conjunction with a clinical pretest probability (PTP) assessment model for deep vein thrombosis (DVT) and pulmonary embolism (PE). Results <230 ng/mL d-dimer units can be used as a negative predictor in patients with low or moderate probability for DVT/PE. Results above the exclusion threshold of 230 ng/ml D-dimer units for DVT/PE may indicate the need for further diagnostic testing. D-Dimer can be increased in hospitalized patients due to co-morbid conditions. PERFORMED BY: [place] [address] PATHOLOGIST DELIVERY DRIVER DANIELLE ANDERSON M.D. Performed By: #### H EPATIC, PHOS, MG, HS TROP, CBC, BMP #### [facility] [address] [place] [id number] [facility] Complete Blood Count Auto Di ffon 02-08-2021 Basophils (Bld) [#/Vol] 0.0 10*3/uL Normal 0.0-0.2 [facility] Comment on above: Result Comment: PERF ORMED BY: [facility] [address] [place] [address] PATHOLOGIST DELIVERY DRIVER DANIELLE ANDERSON M.D. Performed By: #### H EPATIC, PHOS, MG, HS TROP, CBC, BMP #### [address] Basophils/100 WBC (Bld) 0.1 % Normal . [facility] Comment on above: Performed By: #### H EPATIC, PHOS, MG, HS TROP, CBC, BMP #### [address] Eosinophils (Bld) [#/Vol] 0.0 10*3/uL Normal 0.0-0.45 [facility] Comment on above: Performed By: #### H EPATIC, PHOS, MG, HS TROP, CBC, BMP #### [address] Eosinophils/100 WBC (Bld) 0.0 % Normal . [facility] Comment on above: Performed By: #### H EPATIC, PHOS, MG, HS TROP, CBC, BMP #### [address] Erythrocyte distribution width (RBC) [Ratio] 13.2 % Normal 11.9-15.3 [facility] Comment on above: Performed By: #### H EPATIC, PHOS, MG, HS TROP, CBC, BMP #### [address] Hematocrit (Bld) [Volume fraction] 34.4 % Normal 34.0-46.4 [facility] Comment on above: Performed By: #### H EPATIC, PHOS, MG, HS TROP, CBC, BMP #### [address] Hemoglobin (Bld) [Mass/Vol] 11.7 g/dL Low 11.8-15.4 [facility] Comment on above: Performed By: #### H EPATIC, PHOS, MG, HS TROP, CBC, BMP #### [address] Lymphocytes (Bld) [#/Vol] 0.5 10*3/uL Low 1.00-4.8 [facility] Comment on above: Performed By: #### H EPATIC, PHOS, MG, HS TROP, CBC, BMP #### [address] Lymphocytes/100 WBC (Bld) 8.5 % Normal . [facility] Comment on above: Performed By: #### H EPATIC, PHOS, MG, HS TROP, CBC, BMP #### [address] MCH (RBC) [Entitic mass] 32.3 pg Normal 24.7-34.3 [facility] Comment on above: Performed By: #### H EPATIC, PHOS, MG, HS TROP, CBC, BMP #### [address] MCV (RBC) [Entitic vol] 95.2 fL Normal 80-100 [facility] Comment on above: Performed By: #### H EPATIC, PHOS, MG, HS TROP, CBC, BMP #### [address] Mean Corpuscular HGB Conc 33.9 g/dL Normal 32.0-35.0 [facility] Comment on above: Performed By: #### H EPATIC, PHOS, MG, HS TROP, CBC, BMP #### [address] Monocytes (Bld) [#/Vol] 0.6 10*3/uL Normal 0.0-0.8 [facility] Comment on above: Performed By: #### H EPATIC, PHOS, MG, HS TROP, CBC, BMP #### [address] Monocytes/100 WBC (Bld) 10.2 % Normal . [facility] Comment on above: Performed By: #### H EPATIC, PHOS, MG, HS TROP, CBC, BMP #### [address] Neutrophils (Bld) [#/Vol] 5.0 10*3/uL Normal 1.8-7.7 [facility] Comment on above: Performed By: #### H EPATIC, PHOS, MG, HS TROP, CBC, BMP #### [address] Neutrophils/100 WBC (Bld) 81.2 % Normal . [facility] Comment on above: Performed By: #### H EPATIC, PHOS, MG, HS TROP, CBC, BMP #### [address] Nucleated RBC/100 WBC (Bld) [Ratio] 0.1 % Normal 0-0.5 [facility] Comment on above: Performed By: #### H EPATIC, PHOS, MG, HS TROP, CBC, BMP #### [address] Platelet mean volume (Bld) [Entitic vol] 8.9 fL Normal 6.3-10.7 [facility] Comment on above: Performed By: #### H EPATIC, PHOS, MG, HS TROP, CBC, BMP #### [place] [address] [place] Platelets (Bld) [#/Vol] 198 10*3/uL Normal 150-450 [facility] Comment on above: Performed By: #### H EPATIC, PHOS, MG, HS TROP, CBC, BMP #### [place] [address] [place] RBC (Bld) [#/Vol] 3.61 10*6/uL Normal 3.60-5.00 [facility] Comment on above: Performed By: #### H EPATIC, PHOS, MG, HS TROP, CBC, BMP #### [place] [address] [place] WBC (Bld) [#/Vol] 6.2 10*3/uL Normal 4.5-11.0 [facility] Comment on above: Performed By: #### H EPATIC, PHOS, MG, HS TROP, CBC, BMP #### [place] [address] [place] Comprehensive Metabolic Pane veronique 02-08-2021 Albumin [Mass/Vol] 2.3 g/dL Low 3.2-5.5 [facility] Comment on above: Performed By: #### H EPATIC, PHOS, MG, HS TROP, CBC, BMP #### [facility] [address] Albumin/Globulin [Mass ratio] 0.7 {ratio} Normal [facility] Comment on above: Performed By: #### H EPATIC, PHOS, MG, HS TROP, CBC, BMP #### [facility] [address] ALP [Catalytic activity/Vol] 64 U/L Normal 32-92 [facility] Comment on above: Performed By: #### H EPATIC, PHOS, MG, HS TROP, CBC, BMP #### [facility] [address] ALT [Catalytic activity/Vol] 27 U/L Normal 10-60 [facility] Comment on above: Performed By: #### H EPATIC, PHOS, MG, HS TROP, CBC, BMP #### [address] AST [Catalytic activity/Vol] 29 U/L Normal 10-42 [facility] Comment on above: Performed By: #### H EPATIC, PHOS, MG, HS TROP, CBC, BMP #### [facility] [address] [place] [address] Bilirubin [Mass/Vol] 0.6 mg/dL Normal 0.3-1.2 [facility] Comment on above: Performed By: #### H EPATIC, PHOS, MG, HS TROP, CBC, BMP #### [facility] [address] [place] [address] Calcium [Mass/Vol] 8.3 mg/dL Normal 8.2-10.2 [facility] Comment on above: Performed By: #### H EPATIC, PHOS, MG, HS TROP, CBC, BMP #### [address] Chloride [Moles/Vol] 103 mmol/L Normal 95-114 [facility] Comment on above: Performed By: #### H EPATIC, PHOS, MG, HS TROP, CBC, BMP #### [address] CO2 [Moles/Vol] 26.8 mmol/L Normal 22.0-30.0 [facility] Comment on above: Performed By: #### H EPATIC, PHOS, MG, HS TROP, CBC, BMP #### [address] Creatinine [Mass/Vol] 0.95 mg/dL Normal 0.44-1.03 [facility] Comment on above: Performed By: #### H EPATIC, PHOS, MG, HS TROP, CBC, BMP #### [address] Creatinine Clr Calc Pharmacy 81.67 [facility] Comment on above: Result Comment: PERF ORMED BY: [place] [address] PATHOLOGIST DELIVERY DRIVER DANIELLE ANDERSON M.D. Performed By: #### H EPATIC, PHOS, MG, HS TROP, CBC, BMP #### [address] Estimated GFR ( Prerna > 60 [facility] Comment on above: Result Comment: GFR estimated reference range: According to KDOQI guidelines, <60 ml/min/1.73m2 is sufficient to diagnose a patient with chronic kidney disease. Performed By: #### H EPATIC, PHOS, MG, HS TROP, CBC, BMP #### [facility] [address] [place] [address] Estimated GFR (Non- Am > 60 [facility] Comment on above: Performed By: #### H EPATIC, PHOS, MG, HS TROP, CBC, BMP #### [address] Globulin (S) [Mass/Vol] 3.5 g/dL [facility] Comment on above: Performed By: #### H EPATIC, PHOS, MG, HS TROP, CBC, BMP #### [facility] [address] Glucose [Mass/Vol] 133 mg/dL High 70-100 [facility] Comment on above: Result Comment: [facility] Glucose Reference Range is dependent on time and content of last meal. Glucose of more than 200 mg/dL in a nonstressed, ambulatory subject supports the diagnosis of Diabetes Mellitus. ADA recommended reference range Performed By: #### H EPATIC, PHOS, MG, HS TROP, CBC, BMP #### [address] Potassium [Moles/Vol] 4.1 mmol/L Normal 3.5-5.1 [facility] Comment on above: Performed By: #### H EPATIC, PHOS, MG, HS TROP, CBC, BMP #### [address] Protein [Mass/Vol] 5.8 g/dL Low 6.1-7.9 [facility] Comment on above: Performed By: #### H EPATIC, PHOS, MG, HS TROP, CBC, BMP #### [address] Sodium [Moles/Vol] 138 mmol/L Normal 136-146 [facility] Comment on above: Performed By: #### H EPATIC, PHOS, MG, HS TROP, CBC, BMP #### [address] Urea nitrogen [Mass/Vol] 17 mg/dL Normal 9-23 [facility] Comment on above: Performed By: #### H EPATIC, PHOS, MG, HS TROP, CBC, BMP #### [address] D-Dimer High Sensitivityon 1 04-10-2020 D-Dimer High Sensitivity 775 ng/mL High 0-243 [facility] Comment on above: Result Comment: The reference range for D-dimer is <243 ng/mL D-dimer units. D-dimer results must be used in conjunction with a clinical pretest probability (PTP) assessment model for deep vein thrombosis (DVT) and pulmonary embolism (PE). Results <230 ng/mL d-dimer units can be used as a negative predictor in patients with low or moderate probability for DVT/PE. Results above the exclusion threshold of 230 ng/ml D-dimer units for DVT/PE may indicate the need for further diagnostic testing. D-Dimer can be increased in hospitalized patients due to co-morbid conditions. PERFORMED BY: [place] [address] PATHOLOGIST DELIVERY DRIVER DANIELLE ANDERSON M.D. Performed By: #### H EPATIC, PHOS, MG, HS TROP, CBC, BMP #### [address] US venous duplex LE BIon US venous duplex LE BI [facility] [address] [place] [address] Ultrasound Report Signed Patient: Elizabeth Chu MR#: [id number] : 1965 Acct:[id number] Age/Sex: 55 / F ADM Date: 02/06/21 Loc: Room: [address] [place] [address] Type: ADM IN Attending Dr: Randa Feng MD Ordering Provider: Randa Feng MD Date of Service: 02/07/21 US/US venous duplex LE BI: elevated D-DIMER Copies to: Randa Feng MD Bilateral lower extremity venous duplex examination Indication for study: Elevated d-dimer PROCEDURE: Color-flow duplex scanning is used to interrogate the venous anatomy of both lower extremities. In the patient's right leg the common femoral vein, femoral vein, popliteal veins all show good compressibility, and color flow. The posterior tibial veins compress. There is one segment of the peroneal vein that appears to show acute intraluminal thrombus with loss of compressibility and visible intraluminal thrombus. The greater saphenous vein is compressible. The left lower examination normal. The left common femoral vein, femoral vein, and popliteal vein all show good compressibility, color-flow, and augmentation. The left calf veins and saphenous vein are compressible. US/US venous duplex LE BI IMPRESSION: This examination demonstrates a limited segment of deep vein thrombosis in the right calf veins. This involves only the peroneal vein. The proximal deep venous system of the right leg is patent. The left leg is normal. Impression dictated by: Ramses Osuna M.D.02/08/2021 11:33 AM Dictation Location: [place] [address] Tech: Lorna Menjivar Transcribed By: TAD 02/08/21 1133 Dictated By: Ramses Osuna MD 02/08/21 1131 Signed By: 02/08/21 1133 Normal [facility] C-Reactive Proteinon 021 C-Reactive Protein 24.5 mg/dL High 0.0-1.0 [facility] Comment on above: Performed By: #### H EPATIC, PHOS, MG, HS TROP, CBC, BMP #### [address] Complete Blood Count Auto Di ffon 02-07-2021 Basophils (Bld) [#/Vol] 0.0 10*3/uL Normal 0.0-0.2 [facility] Comment on above: Result Comment: PERF ORMED BY: [place] [address] PATHOLOGIST DELIVERY DRIVER DANIELLE ANDERSON M.D. Performed By: #### H EPATIC, PHOS, MG, HS TROP, CBC, BMP #### [address] Basophils/100 WBC (Bld) 0.1 % Normal . [facility] Comment on above: Performed By: #### H EPATIC, PHOS, MG, HS TROP, CBC, BMP #### [place] [address] [place] Eosinophils (Bld) [#/Vol] 0.0 10*3/uL Normal 0.0-0.45 [facility] Comment on above: Performed By: #### H EPATIC, PHOS, MG, HS TROP, CBC, BMP #### [address] Eosinophils/100 WBC (Bld) 0.0 % Normal . [facility] Comment on above: Performed By: #### H EPATIC, PHOS, MG, HS TROP, CBC, BMP #### [address] Erythrocyte distribution width (RBC) [Ratio] 13.3 % Normal 11.9-15.3 [facility] Comment on above: Performed By: #### H EPATIC, PHOS, MG, HS TROP, CBC, BMP #### [address] Hematocrit (Bld) [Volume fraction] 33.7 % Low 34.0-46.4 [facility] Comment on above: Performed By: #### H EPATIC, PHOS, MG, HS TROP, CBC, BMP #### [address] Hemoglobin (Bld) [Mass/Vol] 11.6 g/dL Low 11.8-15.4 [facility] Comment on above: Performed By: #### H EPATIC, PHOS, MG, HS TROP, CBC, BMP #### [address] Lymphocytes (Bld) [#/Vol] 0.7 10*3/uL Low 1.00-4.8 [facility] Comment on above: Performed By: #### H EPATIC, PHOS, MG, HS TROP, CBC, BMP #### [address] Lymphocytes/100 WBC (Bld) 11.3 % Normal . [facility] Comment on above: Performed By: #### H EPATIC, PHOS, MG, HS TROP, CBC, BMP #### [address] MCH (RBC) [Entitic mass] 32.4 pg Normal 24.7-34.3 [facility] Comment on above: Performed By: #### H EPATIC, PHOS, MG, HS TROP, CBC, BMP #### [address] MCV (RBC) [Entitic vol] 94.2 fL Normal 80-100 [facility] Comment on above: Performed By: #### H EPATIC, PHOS, MG, HS TROP, CBC, BMP #### [address] Mean Corpuscular HGB Conc 34.5 g/dL Normal 32.0-35.0 [facility] Comment on above: Performed By: #### H EPATIC, PHOS, MG, HS TROP, CBC, BMP #### [address] Monocytes (Bld) [#/Vol] 0.6 10*3/uL Normal 0.0-0.8 [facility] Comment on above: Performed By: #### H EPATIC, PHOS, MG, HS TROP, CBC, BMP #### [address] Monocytes/100 WBC (Bld) 9.7 % Normal . [facility] Comment on above: Performed By: #### H EPATIC, PHOS, MG, HS TROP, CBC, BMP #### [address] Neutrophils (Bld) [#/Vol] 4.9 10*3/uL Normal 1.8-7.7 [facility] Comment on above: Performed By: #### H EPATIC, PHOS, MG, HS TROP, CBC, BMP #### [address] Neutrophils/100 WBC (Bld) 78.9 % Normal . [facility] Comment on above: Performed By: #### H EPATIC, PHOS, MG, HS TROP, CBC, BMP #### [address] Nucleated RBC/100 WBC (Bld) [Ratio] 0.0 % Normal 0-0.5 [facility] Comment on above: Performed By: #### H EPATIC, PHOS, MG, HS TROP, CBC, BMP #### [facility] [address] Platelet mean volume (Bld) [Entitic vol] 8.5 fL Normal 6.3-10.7 [facility] Comment on above: Performed By: #### H EPATIC, PHOS, MG, HS TROP, CBC, BMP #### [facility] [address] Platelets (Bld) [#/Vol] 179 10*3/uL Normal 150-450 [facility] Comment on above: Performed By: #### H EPATIC, PHOS, MG, HS TROP, CBC, BMP #### [facility] [address] RBC (Bld) [#/Vol] 3.58 10*6/uL Low 3.60-5.00 [facility] Comment on above: Performed By: #### H EPATIC, PHOS, MG, HS TROP, CBC, BMP #### [address] WBC (Bld) [#/Vol] 6.2 10*3/uL Normal 4.5-11.0 [facility] Comment on above: Performed By: #### H EPATIC, PHOS, MG, HS TROP, CBC, BMP #### [address] Comprehensive Metabolic Pane veronique 02-07-2021 Albumin [Mass/Vol] 2.4 g/dL Low 3.2-5.5 [facility] Comment on above: Performed By: #### H EPATIC, PHOS, MG, HS TROP, CBC, BMP #### [facility] [address] [place] [address] Albumin/Globulin [Mass ratio] 0.7 {ratio} Normal [facility] Comment on above: Performed By: #### H EPATIC, PHOS, MG, HS TROP, CBC, BMP #### [facility] [address] [place] [address] ALP [Catalytic activity/Vol] 63 U/L Normal 32-92 [facility] Comment on above: Performed By: #### H EPATIC, PHOS, MG, HS TROP, CBC, BMP #### [facility] [address] ALT [Catalytic activity/Vol] 32 U/L Normal 10-60 [facility] Comment on above: Performed By: #### H EPATIC, PHOS, MG, HS TROP, CBC, BMP #### [facility] [address] [place] [address] AST [Catalytic activity/Vol] 34 U/L Normal 10-42 [facility] Comment on above: Performed By: #### H EPATIC, PHOS, MG, HS TROP, CBC, BMP #### [facility] [address] [place] [address] Bilirubin [Mass/Vol] 0.6 mg/dL Normal 0.3-1.2 [facility] Comment on above: Performed By: #### H EPATIC, PHOS, MG, HS TROP, CBC, BMP #### [facility] [address] [place] [address] Calcium [Mass/Vol] 8.0 mg/dL Low 8.2-10.2 [facility] Comment on above: Performed By: #### H EPATIC, PHOS, MG, HS TROP, CBC, BMP #### [address] Chloride [Moles/Vol] 103 mmol/L Normal 95-114 [facility] Comment on above: Performed By: #### H EPATIC, PHOS, MG, HS TROP, CBC, BMP #### [facility] [address] [place] [address] CO2 [Moles/Vol] 24.0 mmol/L Normal 22.0-30.0 [facility] Comment on above: Performed By: #### H EPATIC, PHOS, MG, HS TROP, CBC, BMP #### [address] Creatinine [Mass/Vol] 0.96 mg/dL Normal 0.44-1.03 [facility] Comment on above: Performed By: #### H EPATIC, PHOS, MG, HS TROP, CBC, BMP #### [facility] [address] Creatinine Clr Calc Pharmacy 81.55 [facility] Comment on above: Performed By: #### H EPATIC, PHOS, MG, HS TROP, CBC, BMP #### [facility] [address] Estimated GFR ( Prerna > 60 [facility] Comment on above: Result Comment: GFR estimated reference range: According to KDOQI guidelines, <60 ml/min/1.73m2 is sufficient to diagnose a patient with chronic kidney disease. Performed By: #### H EPATIC, PHOS, MG, HS TROP, CBC, BMP #### [facility] [address] Estimated GFR (Non- Am 60 [facility] Comment on above: Performed By: #### H EPATIC, PHOS, MG, HS TROP, CBC, BMP #### [facility] [address] Globulin (S) [Mass/Vol] 3.5 g/dL [facility] Comment on above: Performed By: #### H EPATIC, PHOS, MG, HS TROP, CBC, BMP #### [address] Glucose [Mass/Vol] 116 mg/dL High 70-100 [facility] Comment on above: Result Comment: [place] Glucose Reference Range is dependent on time and content of last meal. Glucose of more than 200 mg/dL in a nonstressed, ambulatory subject supports the diagnosis of Diabetes Mellitus. ADA recommended reference range Performed By: #### H EPATIC, PHOS, MG, HS TROP, CBC, BMP #### [facility] [address] Potassium [Moles/Vol] 3.9 mmol/L Normal 3.5-5.1 [facility] Comment on above: Performed By: #### H EPATIC, PHOS, MG, HS TROP, CBC, BMP #### [address] Protein [Mass/Vol] 5.9 g/dL Low 6.1-7.9 [facility] Comment on above: Performed By: #### H EPATIC, PHOS, MG, HS TROP, CBC, BMP #### [address] Sodium [Moles/Vol] 137 mmol/L Normal 136-146 [facility] Comment on above: Performed By: #### H EPATIC, PHOS, MG, HS TROP, CBC, BMP #### [address] Urea nitrogen [Mass/Vol] 21 mg/dL Normal 9-23 [facility] Comment on above: Performed By: #### H EPATIC, PHOS, MG, HS TROP, CBC, BMP #### [address] D-Dimer High Sensitivityon 1 04-09-2020 D-Dimer High Sensitivity 3224 ng/mL High 0-243 [facility] Comment on above: Result Comment: The reference range for D-dimer is <243 ng/mL D-dimer units. D-dimer results must be used in conjunction with a clinical pretest probability (PTP) assessment model for deep vein thrombosis (DVT) and pulmonary embolism (PE). Results <230 ng/mL d-dimer units can be used as a negative predictor in patients with low or moderate probability for DVT/PE. Results above the exclusion threshold of 230 ng/ml D-dimer units for DVT/PE may indicate the need for further diagnostic testing. D-Dimer can be increased in hospitalized patients due to co-morbid conditions. PERFORMED BY: [place] [address] PATHOLOGIST DELIVERY DRIVER DANIELLE ANDERSON M.D. Performed By: #### H EPATIC, PHOS, MG, HS TROP, CBC, BMP #### [address] ECG 12 lead ECGon 02-07-2021 ECG 12 lead ECG [facility] [address] [place] [address] Electrocardiograph Report Signed Patient: Elizabeth Chu MR#: [id number] : 1965 Acct:[id number] Age/Sex: 55 / F ADM Date: 02/06/21 Loc: Room: [address] [place] [address] Type: ADM IN Attending Dr: Randa Feng MD Ordering Provider: Selvin Hammonds DO Date of Service: 02/07/21 ECG/ECG 12 lead ECG: COVID Copies to: Test Reason : Blood Pressure : / mmHG Vent. Rate : 080 BPM Atrial Rate : 080 BPM P-R Int : 124 ms QRS Dur : 088 ms QT Int : 378 ms P-R-T Axes : -03 007 033 degrees QTc Int : 435 ms Normal sinus rhythm Normal ECG Confirmed by ANDRE MENDOZA DO ([id number]) on 02/08/2021 7:01:43 PM Referred By: Electronically Signed By:ANDRE MENDOZA DO Transcribed By: MUS Signed By Andre Mendoza DO 02/08 [facility] LDH Lactate Dehydrogenaseon 02-07-2021 LDH Lactate Dehydrogenase 316 U/L High 45-190 [facility] Comment on above: Performed By: #### H EPATIC, PHOS, MG, HS TROP, CBC, BMP #### [facility] [address] [place] [address] Prealbuminon 02-07-2021 Prealbumin [Mass/Vol] 5.1 mg/dL Low 18.0-38.0 [facility] Comment on above: Performed By: #### H EPATIC, PHOS, MG, HS TROP, CBC, BMP #### [facility] [address] [place] [address] [place] T SPOT TB TESTon 02-07-2021 T SPOT TB TEST Normal [facility] Comment on above: Result Comment: See report. Scanned copy available in EMR. PERFORMED BY: [place] [address] PATHOLOGIST DELIVERY DRIVER DANIELLE ANDERSON M.D. Performed By: #### H EPATIC, PHOS, MG, HS TROP, CBC, BMP #### [facility] [address] Troponin I High Sensitivityo n 02-07-2021 Troponin I High Sensitivity 15 pg/mL Normal 0-15 [facility] Comment on above: Result Comment: PERF ORMED BY: [place] [address] PATHOLOGIST DELIVERY DRIVER DANIELLE ANDERSON M.D. Performed By: #### H EPATIC, PHOS, MG, HS TROP, CBC, BMP #### [facility] [address] Vit. B12/Folate Profileon Cobalamin (Vitamin B12) [Mass/Vol] 171 pg/mL Low 180-914 [facility] Comment on above: Performed By: #### H EPATIC, PHOS, MG, HS TROP, CBC, BMP #### [address] Folate 12.0 ng/mL Normal >5.9 [facility] Comment on above: Result Comment: Lizeth te reference range: >5.9 ng/ml The WHO technical consultation on folate and vitamin b12 deficiencies has determined that folate concentrations less than 4 ng/ml are considered deficient. Performed By: #### H EPATIC, PHOS, MG, HS TROP, CBC, BMP #### [address] Vitamin B1 (Thiamine) Bloodo n 02-07-2021 Vitamin B1 (Thiamine) Blood 87.5 Normal 66.5-200.0 [facility] Comment on above: Result Comment: This test was developed and its performance characteristics determined by [facility]. It has not been cleared or approved by the Food and Drug Administration. Performed at: [address] [id number] Rn Infusion: Rebecca Griffin MD, Phone: [phone] PERFORMED BY: [place] [address] PATHOLOGIST DELIVERY DRIVER DANIELLE ANDERSON M.D. Performed By: #### H EPATIC, PHOS, MG, HS TROP, CBC, BMP #### [facility] [address] [place] [address] Vitamin D 25 Hydroxy Totalon 02-07-2021 Vitamin D 25 Hydroxy Total 39.2 ng/mL Normal 30-100 [facility] Comment on above: Result Comment: HSELDON MIN D STATUS 25(OH)VITAMIN D RANGE (ng/mL) Deficient <20 Insufficient 20 to <30 Sufficient 30 to 100 Reference: Toby MF,Eamon FELIZ, Neyda GREEN, et al. Evaluation,treatment, and prevention of vitamin D deficiency; an Endocrine Society clinical practice guideline. JCEM. 2010; 96(7):1911-30. PERFORMED BY: [place] [address] PATHOLOGIST DELIVERY DRIVER DANIELLE ANDERSON M.D. Performed By: #### H EPATIC, PHOS, MG, HS TROP, CBC, BMP #### [address] Ammoniaon 02-06-2021 Ammonia (P) [Moles/Vol] 17 umol/L Normal 11-35 [facility] Comment on above: Result Comment: PERF ORMED BY: [place] [address] PATHOLOGIST DELIVERY DRIVER DANIELLE ANDERSON M.D. Performed By: #### B SUB PLANT MANAGER, AMM #### [address] Arterial Blood Gason 021 ABG Base Excess 0.8 mmol/L Normal -3.0-3.0 [facility] Comment on above: Performed By: #### A BG #### Point of Care testing , ABG Frac Inspired O2 56 % Normal [facility] Comment on above: Performed By: #### A BG #### Point of Care testing , ABG Oxygen Content 7.6 mmol/L Normal 6.6-9.7 [facility] Comment on above: Performed By: #### A BG #### Point of Care testing , ABG Oxygen Saturation 94.5 % Low 95.0-100.0 [facility] Comment on above: Performed By: #### A BG #### Point of Care testing , ABG PCO2 34.3 mm[Hg] Low 35.0-45.0 [facility] Comment on above: Performed By: #### A BG #### Point of Care testing , ABG PH 7.47 High 7.35-7.45 [facility] Comment on above: Performed By: #### A BG #### Point of Care testing , ABG PO2 69.5 mm[Hg] Low 80.0-100.0 [facility] Comment on above: Performed By: #### A BG #### Point of Care testing , CO2 [Moles/Vol] 25.2 mmol/L Normal 23.0-27.0 [facility] Comment on above: Performed By: #### A BG #### Point of Care testing , HCO3 (Bld) [Moles/Vol] 24.1 mmol/L Normal 23.0-29.0 [facility] Comment on above: Performed By: #### A BG #### Point of Care testing , Respiratory Critical Normal [facility] Comment on above: Result Comment: Crit ical Value called on: 02/06/2021 at 09:25 PERFORMED BY: [place] [address] PATHOLOGIST DELIVERY DRIVER DANIELLE ANDERSON M.D. Performed By: #### A BG #### Point of Care testing , VBG Draw Site Right Radial Normal [facility] Comment on above: Performed By: #### A BG #### Point of Care testing , B-Type Natriuretic Peptideon 02-06-2021 Natriuretic peptide B (Bld) [Mass/Vol] 42.0 pg/mL Normal 5-100 [facility] Comment on above: Result Comment: PERF ORMED BY: [address] [address] PATHOLOGIST DELIVERY DRIVER DANIELLE ANDERSON M.D. Performed By: #### B SUB PLANT MANAGER, AMM #### [address] [place] [address] [place] Basic Metabolic Panelon 11- Calcium [Mass/Vol] 8.3 mg/dL Normal 8.2-10.2 [facility] Comment on above: Performed By: #### H EPATIC, PHOS, MG, HS TROP, CBC, BMP #### [address] Chloride [Moles/Vol] 100 mmol/L Normal 95-114 [facility] Comment on above: Performed By: #### H EPATIC, PHOS, MG, HS TROP, CBC, BMP #### [address] CO2 [Moles/Vol] 26.5 mmol/L Normal 22.0-30.0 [facility] Comment on above: Performed By: #### H EPATIC, PHOS, MG, HS TROP, CBC, BMP #### [facility] [address] [place] [address] Creatinine [Mass/Vol] 1.17 mg/dL High 0.44-1.03 [facility] Comment on above: Performed By: #### H EPATIC, PHOS, MG, HS TROP, CBC, BMP #### [address] Creatinine Clr Calc Pharmacy 65.51 [facility] Comment on above: Performed By: #### H EPATIC, PHOS, MG, HS TROP, CBC, BMP #### [facility] [address] [place] [address] Estimated GFR ( Prerna 58 [facility] Comment on above: Result Comment: GFR estimated reference range: According to KDOQI guidelines, <60 ml/min/1.73m2 is sufficient to diagnose a patient with chronic kidney disease. Performed By: #### H EPATIC, PHOS, MG, HS TROP, CBC, BMP #### [facility] [address] [place] [address] Estimated GFR (Non- Am 48 [facility] Comment on above: Performed By: #### H EPATIC, PHOS, MG, HS TROP, CBC, BMP #### [facility] [address] [place] [address] [place] Glucose [Mass/Vol] 125 mg/dL High 70-100 [facility] Comment on above: Result Comment: [facility] Glucose Reference Range is dependent on time and content of last meal. Glucose of more than 200 mg/dL in a nonstressed, ambulatory subject supports the diagnosis of Diabetes Mellitus. ADA recommended reference range Performed By: #### H EPATIC, PHOS, MG, HS TROP, CBC, BMP #### [address] Potassium Normal 3.5-5.1 [facility] Comment on above: Result Comment: Spec imen hemolyzed, redraw requested Performed By: #### H EPATIC, PHOS, MG, HS TROP, CBC, BMP #### [address] Sodium [Moles/Vol] 139 mmol/L Normal 136-146 [facility] Comment on above: Performed By: #### H EPATIC, PHOS, MG, HS TROP, CBC, BMP #### [address] Urea nitrogen [Mass/Vol] 27 mg/dL High 9-23 [facility] Comment on above: Performed By: #### H EPATIC, PHOS, MG, HS TROP, CBC, BMP #### [address] Blood Cultureon 02-06-2021 Bacteria identified Cx Nom (Bld) NO GROWTH 5 DAYS PERFORMED BY: [place] [address] PATHOLOGIST DELIVERY DRIVER DANIELLE ANDERSON M.D. [facility] Comment on above: Performed By: #### H EPATIC, PHOS, MG, HS TROP, CBC, BMP #### [facility] [address] [place] [address] Bacteria identified Cx Nom (Bld) NO GROWTH 5 DAYS PERFORMED BY: [place] [address] PATHOLOGIST DELIVERY DRIVER DANIELLE ANDERSON M.D. Normal [facility] Comment on above: Performed By: #### H EPATIC, PHOS, MG, HS TROP, CBC, BMP #### [facility] [address] [place] [id number] [facility] COVID-19 Antigenon 1 COVID-19 Antigen Results called at 0944 on 02/06/21 Healthcare Worker?: N Drew Reference Drew Reference Negative Drew Blank COVID19 Pos Results Positive results will only be called to COVID19 Det Results Providers for the following groups of patients: COVID19 Pos Results Pre-Surgical Testing, Emergency Room, and Inpatients. Drew Blank SARS-CoV+SARS-CoV-2 (COVID-19) Ag [Presence] in Respiratory specimen by Rapid immunoassay Positive for SARS Antigen by PRECIOUS Drew Disclaimer The Drew SARS Antigen PRECIOUS does not differentiate Drew Disclaimer between SARS-CoV and SARS-CoV-2. COVID19 Blank Space -------- Drew Disclaimer This test was developed and its performance Drew Disclaimer characteristic determined by [employer] and Drew Disclaimer validated at [facility]. This Drew Disclaimer test has not been FDA cleared or approved. This Drew Disclaimer test has been authorized by FDA under an Emergency Use Drew Disclaimer Authorization (EUA). This test has been validated Drew Disclaimer in accordance with the FDA's Guidance Document (Policy Drew Disclaimer for Diagnostics Testing in Laboratories Certified to Drew Disclaimer Perform High Complexity Testing under CLIA prior to Drew Disclaimer Emergency Use Authorization for Coronavirus Drew Disclaimer iseas during the Public Health Emergency) Drew Disclaimer issued on 2019. This test is only authorized Drew Disclaimer for the duration of time the declaration that Drew Disclaimer circumstances exist justifying the authorization of Drew Disclaimer the emergency use of in vitro diagnostic tests for Drew Disclaimer detection of SARS-CoV-2 virus and/or diagnosis of Drew Disclaimer COVID-19 infection under section 564(b)(1) of the Drew Disclaimer Act, 21 U.S.C. 360bbb-3(b)(1), unless the Drew Disclaimer authorization is terminated or revoked sooner. PERFORMED BY: [place] [address] PATHOLOGIST DELIVERY DRIVER DANIELLE ANDERSON M.D. [facility] Comment on above: Performed By: #### C OVID-19 DREW, EUGENIAIAPOS #### [address] angio chest PE protocolon 02-06-2021 CT angio chest PE protocol [facility] [place] [address] [place] [address] CT Scan Report Signed Patient: Elizabeth Chu MR#: [id number] : 1965 Acct:[id number] Age/Sex: 55 / F ADM Date: 02/06/21 Loc: ER Room: Type: [facility] ER Attending Dr: Ordering Provider: Yang Paez DO Date of Service: 02/06/21 CT/CT angio chest PE protocol: r/o pe Copies to: Yang Paez DO CTA chest with PE protocol TECHNIQUE: Axial imaging with 2-D and 3-D reconstruction. 90cc of Isovue-[address] exam was performed using one or more the following dose reduction techniques: Automated exposure control, adjustment of the MA and/or Kv according to patient size, or use of the iterative reconstruction technique. History: Unresponsive. Low pulse ox. Fever. Covid positive COMPARISON: None The thyroid gland is normal. Central airway is patent. Esophagus is normal in course and caliber. Heart is not enlarged. No pericardial effusion is seen. Nonenlarged mediastinal lymph nodes identified. No hilar mass or adenopathy is seen. There is limited contrast opacification of distal pulmonary arteries limiting assessment for pulmonary embolus. No central pulmonary embolus identified. No thoracic aortic aneurysm is seen. Atherosclerosis identified. No lung nodules identified.. Multifocal diffuse groundglass infiltrates identified. No pleural effusion identified. No pneumothorax identified. No chest wall abnormality seen. The bony structures are intact. Images of the upper abdomen are noncontributory. Moderate LEFT hemidiaphragm elevation identified CT/CT angio chest PE protocol IMPRESSION: Limited assessment for small pulmonary emboli. No central pulmonary embolus present. Diffuse bilateral infiltrates. Impression dictated by: Ramses Gary M.D.02/06/2021 1:30 PM Dictation Location: [place] [address] Transcribed By: [facility] 02/06/21 1330 Dictated By: Ramses Gary DO 02/06/21 1326 Signed By: 02/06/21 1330 Normal [facility] CT head/brain wo conon 02-06 CT head/brain wo con [facility] [place] [address] CT Scan Report Signed Patient: Elizabeth Chu MR#: [id number] : 1965 Acct:[id number] Age/Sex: 55 / F ADM Date: 02/06/21 Loc: ER Room: Type: [facility] ER Attending Dr: Ordering Provider: Yang Paez DO Date of Service: 02/06/21 CT/CT head/brain wo con: r/o ich, ams, hypoxemia Copies to: Yang Paez DO CLINICAL INFORMATION: Unresponsive, low pulse oximetry, fever. COVID positive. CT BRAIN WITHOUT CONTRAST: COMPARISON: None FINDINGS: Axial CT scans of the brain were obtained without contrast. There is no intracranial bleeding, hydrocephalus or acute large vessel infarct.There is no significant abnormal focal attenuation of the supratentorial brain. The brainstem and the basal cisterns are unremarkable. There is no abnormal extra-axial fluid collection. The calvarium is intact. The visualized paranasal sinuses show mild to moderate chronic mucosal thickening at the left maxillary sinus without air-fluid level. The visualized mastoid air cells are unremarkable. CT/CT head/brain wo con IMPRESSION: NO ACUTE INTRACRANIAL ABNORMALITIES. The CT exam was performed using one or more of the following dose reduction techniques: Automated exposure control, adjustment of the MA and/or Kv according to patient size, or use of the iterative reconstruction technique. Impression dictated by: Ananth Hanson M.D.02/06/2021 10:25 AM Dictation Location: [place] [address] Transcribed By: [facility] 02/06/21 1025 Dictated By: Ananth Hanson MD 02/06/21 1014 Signed By: 02/06/21 1025 Normal [facility] Complete Blood Count Auto Di ffon 02-06-2021 Basophils (Bld) [#/Vol] 0.0 10*3/uL Normal 0.0-0.2 [facility] Comment on above: Result Comment: PERF ORMED BY: [place] [address] PATHOLOGIST DELIVERY DRIVER DANIELLE ANDERSON M.D. Performed By: #### H EPATIC, PHOS, MG, HS TROP, CBC, BMP #### [address] Basophils/100 WBC (Bld) 0.2 % Normal . [facility] Comment on above: Performed By: #### H EPATIC, PHOS, MG, HS TROP, CBC, BMP #### [facility] [address] [place] [address] Eosinophils (Bld) [#/Vol] 0.0 10*3/uL Normal 0.0-0.45 [facility] Comment on above: Performed By: #### H EPATIC, PHOS, MG, HS TROP, CBC, BMP #### [address] Eosinophils/100 WBC (Bld) 0.0 % Normal . [facility] Comment on above: Performed By: #### H EPATIC, PHOS, MG, HS TROP, CBC, BMP #### [place] [address] [place] Erythrocyte distribution width (RBC) [Ratio] 13.6 % Normal 11.9-15.3 [facility] Comment on above: Performed By: #### H EPATIC, PHOS, MG, HS TROP, CBC, BMP #### [address] Hematocrit (Bld) [Volume fraction] 37.9 % Normal 34.0-46.4 [facility] Comment on above: Performed By: #### H EPATIC, PHOS, MG, HS TROP, CBC, BMP #### [address] Hemoglobin (Bld) [Mass/Vol] 12.7 g/dL Normal 11.8-15.4 [facility] Comment on above: Performed By: #### H EPATIC, PHOS, MG, HS TROP, CBC, BMP #### [address] Lymphocytes (Bld) [#/Vol] 0.6 10*3/uL Low 1.00-4.8 [facility] Comment on above: Performed By: #### H EPATIC, PHOS, MG, HS TROP, CBC, BMP #### [address] Lymphocytes/100 WBC (Bld) 11.4 % Normal . [facility] Comment on above: Performed By: #### H EPATIC, PHOS, MG, HS TROP, CBC, BMP #### [address] MCH (RBC) [Entitic mass] 31.7 pg Normal 24.7-34.3 [facility] Comment on above: Performed By: #### H EPATIC, PHOS, MG, HS TROP, CBC, BMP #### [address] MCV (RBC) [Entitic vol] 94.6 fL Normal 80-100 [facility] Comment on above: Performed By: #### H EPATIC, PHOS, MG, HS TROP, CBC, BMP #### [address] [place] [address] [place] Mean Corpuscular HGB Conc 33.5 g/dL Normal 32.0-35.0 [facility] Comment on above: Performed By: #### H EPATIC, PHOS, MG, HS TROP, CBC, BMP #### [address] Monocytes (Bld) [#/Vol] 0.7 10*3/uL Normal 0.0-0.8 [facility] Comment on above: Performed By: #### H EPATIC, PHOS, MG, HS TROP, CBC, BMP #### [address] Monocytes/100 WBC (Bld) 11.6 % Normal . [facility] Comment on above: Performed By: #### H EPATIC, PHOS, MG, HS TROP, CBC, BMP #### [address] Neutrophils (Bld) [#/Vol] 4.3 10*3/uL Normal 1.8-7.7 [facility] Comment on above: Performed By: #### H EPATIC, PHOS, MG, HS TROP, CBC, BMP #### [address] Neutrophils/100 WBC (Bld) 76.8 % Normal . [facility] Comment on above: Performed By: #### H EPATIC, PHOS, MG, HS TROP, CBC, BMP #### [address] Nucleated RBC/100 WBC (Bld) [Ratio] 0.2 % Normal 0-0.5 [facility] Comment on above: Performed By: #### H EPATIC, PHOS, MG, HS TROP, CBC, BMP #### [address] Platelet mean volume (Bld) [Entitic vol] 9.0 fL Normal 6.3-10.7 [facility] Comment on above: Performed By: #### H EPATIC, PHOS, MG, HS TROP, CBC, BMP #### [address] Platelets (Bld) [#/Vol] 197 10*3/uL Normal 150-450 [facility] Comment on above: Performed By: #### H EPATIC, PHOS, MG, HS TROP, CBC, BMP #### [address] RBC (Bld) [#/Vol] 4.01 10*6/uL Normal 3.60-5.00 [facility] Comment on above: Performed By: #### H EPATIC, PHOS, MG, HS TROP, CBC, BMP #### [address] WBC (Bld) [#/Vol] 5.6 10*3/uL Normal 4.5-11.0 [facility] Comment on above: Performed By: #### H EPATIC, PHOS, MG, HS TROP, CBC, BMP #### [address] D-Dimer High Sensitivityon 1 04-08-2020 D-Dimer High Sensitivity 616 ng/mL High 0-243 [facility] Comment on above: Result Comment: The reference range for D-dimer is <243 ng/mL D-dimer units. D-dimer results must be used in conjunction with a clinical pretest probability (PTP) assessment model for deep vein thrombosis (DVT) and pulmonary embolism (PE). Results <230 ng/mL d-dimer units can be used as a negative predictor in patients with low or moderate probability for DVT/PE. Results above the exclusion threshold of 230 ng/ml D-dimer units for DVT/PE may indicate the need for further diagnostic testing. D-Dimer can be increased in hospitalized patients due to co-morbid conditions. PERFORMED BY: [place] [address] PATHOLOGIST DELIVERY DRIVER DANIELLE ANDERSON M.D. Performed By: #### H EPATIC, PHOS, MG, HS TROP, CBC, BMP #### [address] ECG 12 lead ECGon 02-06-2021 ECG 12 lead ECG [facility] [place] [address] [place] [address] Electrocardiograph Report Signed Patient: Elizabeth Chu MR#: [id number] : 1965 Acct:[id number] Age/Sex: 55 / F ADM Date: 02/06/21 Loc: Room: [address] [place] [address] Type: ADM IN Attending Dr: Randa Feng MD Ordering Provider: Yang Paez DO Date of Service: 02/06/21 ECG/ECG 12 lead ECG: Altered Mental Status Copies to: Test Reason : Blood Pressure : 131/064 mmHG Vent. Rate : 082 BPM Atrial Rate : 082 BPM P-R Int : 116 ms QRS Dur : 084 ms QT Int : 374 ms P-R-T Axes : 011 014 052 degrees QTc Int : 436 ms Normal sinus rhythm Normal ECG No previous ECGs available Confirmed by ANDRE MENDOZA DO ([id number]) on 02/08/2021 7:28:38 PM Referred By: Electronically Signed By:ANDRE MENDOZA DO Transcribed By: MUS Signed By Andre Mendoza DO 02/08 [facility] Hepatic Panelon 02-06-2021 Albumin [Mass/Vol] 2.8 g/dL Low 3.2-5.5 [facility] Comment on above: Performed By: #### H EPATIC, PHOS, MG, HS TROP, CBC, BMP #### [facility] [address] [place] [address] Albumin/Globulin [Mass ratio] 0.8 {ratio} [facility] Comment on above: Performed By: #### H EPATIC, PHOS, MG, HS TROP, CBC, BMP #### [facility] [address] ALP [Catalytic activity/Vol] 78 U/L Normal 32-92 [facility] Comment on above: Performed By: #### H EPATIC, PHOS, MG, HS TROP, CBC, BMP #### [facility] [address] [place] [address] ALT [Catalytic activity/Vol] 45 U/L Normal 10-60 [facility] Comment on above: Performed By: #### H EPATIC, PHOS, MG, HS TROP, CBC, BMP #### [address] AST [Catalytic activity/Vol] 47 U/L High 10-42 [facility] Comment on above: Performed By: #### H EPATIC, PHOS, MG, HS TROP, CBC, BMP #### [address] Bilirubin [Mass/Vol] 0.9 mg/dL Normal 0.3-1.2 [facility] Comment on above: Performed By: #### H EPATIC, PHOS, MG, HS TROP, CBC, BMP #### [address] Bilirubin,Indirect 0.6 mg/dL Normal [facility] Comment on above: Performed By: #### H EPATIC, PHOS, MG, HS TROP, CBC, BMP #### [address] Bilirubin.indirect [Mass/Vol] 0.3 mg/dL Normal 0.0-0.4 [facility] Comment on above: Performed By: #### H EPATIC, PHOS, MG, HS TROP, CBC, BMP #### [address] Globulin (S) [Mass/Vol] 3.6 g/dL Normal [facility] Comment on above: Performed By: #### H EPATIC, PHOS, MG, HS TROP, CBC, BMP #### [address] Protein [Mass/Vol] 6.4 g/dL Normal 6.1-7.9 [facility] Comment on above: Performed By: #### H EPATIC, PHOS, MG, HS TROP, CBC, BMP #### [address] Magnesiumon 02-06-2021 Magnesium [Mass/Vol] 2.4 mg/dL Normal 1.6-2.6 [facility] Comment on above: Result Comment: PERF ORMED BY: [place] [address] PATHOLOGIST DELIVERY DRIVER DANIELLE ANDERSON M.D. Performed By: #### H EPATIC, PHOS, MG, HS TROP, CBC, BMP #### [facility] [address] [place] [address] Partial Thromboplastin Timeo n 02-06-2021 aPTT Coag (Bld) [Time] 29.1 s Normal 25.1-36.5 [facility] Comment on above: Performed By: #### H EPATIC, PHOS, MG, HS TROP, CBC, BMP #### [address] Phosphoruson 02-06-2021 Phosphate [Mass/Vol] 3.1 mg/dL Normal 2.5-4.6 [facility] Comment on above: Performed By: #### H EPATIC, PHOS, MG, HS TROP, CBC, BMP #### [facility] [address] [place] [address] Prothrombin Time INRon 02-06 INR Coag (PPP) [Relative time] 1.4 {INR} Normal [facility] Comment on above: Result Comment: INR Therapeutic Range A) Pre- and Peroperative OAT started two weeks before surgery. NOT HIP SURGERY: 1.5 - 2.5 HIP SURGERY: 2 - 3 B) Primary and secondary prevention of venous THROMBOSIS: 2 - 3 C) Active venous thrombosis, pulmonary embolism and prevention of recurrent venous thrombosis: 2 - 3 D) Prevention of arterial thromboembolism including patients with mechanical heart valves: 3 - 4.5 Performed By: #### H EPATIC, PHOS, MG, HS TROP, CBC, BMP #### [address] PT Coag (PPP) [Time] 15.8 s High 9.0-12.9 [facility] Comment on above: Performed By: #### H EPATIC, PHOS, MG, HS TROP, CBC, BMP #### [facility] [address] [place] [address] [place] Redraw Potassiumon Potassium [Moles/Vol] 3.6 mmol/L Normal 3.5-5.1 [facility] Comment on above: Result Comment: PERF ORMED BY: [place] [address] PATHOLOGIST DELIVERY DRIVER DANIELLE ANDERSON M.D. Performed By: #### H EPATIC, PHOS, MG, HS TROP, CBC, BMP #### [address] Drew Ag Positiveon 02-07-20 21 Drew Ag Positive Positive Critically abnormal Negative [facility] Comment on above: Result Comment: This is a duplicate Drew SARS Antigen (PRECIOUS) result to be used for statistical tracking purpose only. PERFORMED BY: [place] [address] PATHOLOGIST DELIVERY DRIVER DANIELLE ANDERSON M.D. Performed By: #### H EPATIC, PHOS, MG, HS TROP, CBC, BMP #### [address] Troponin I High Sensitivityo n 02-06-2021 Troponin I High Sensitivity 14 pg/mL Normal 0-15 [facility] Comment on above: Result Comment: PERF ORMED BY: [place] [address] PATHOLOGIST DELIVERY DRIVER DANIELLE ANDERSON M.D. Performed By: #### H EPATIC, PHOS, MG, HS TROP, CBC, BMP #### [address] XR chest 1V portableon 02-06 XR chest 1V portable [facility] [place] [address] XRay Report Signed Patient: Elizabeth Chu MR#: [id number] : 1965 Acct:[id number] Age/Sex: 55 / F ADM Date: 02/06/21 Loc: ER Room: Type: [facility] ER Attending Dr: Ordering Provider: Yang Paez DO Date of Service: 02/06/21 XR/XR chest 1V portable: Altered Mental Status Copies to: Yang Paez DO PORTABLE CHEST(0902 hours): CLINICAL HISTORY: Change in mental status, unresponsive. COVID positive. COMPARISON: None FINDINGS: A single AP portable view of the chest was obtained in sitting position. The transverse diameter of the cardiopericardial silhouette is difficult to evaluate due to obliteration of the left lower cardiac border from overlying pleuroparenchymal opacity. There is no pneumothorax. The pulmonary vascularity appears unremarkable considering the technique. There is moderate opacity overlying the left lower chest which could be due to moderate elevation of the left hemidiaphragm or pleuroparenchymal opacity to the left lower chest. Mildly increased i nterstitial markings are demonstrated possibly from chronic interstitial lung disease. The bony thorax appears intact. Electrocardiographic leads are noted. XR/XR chest 1V portable IMPRESSION: NO PNEUMOTHORAX OR PULMONARY CONGESTION. MILDLY INCREASED INTERSTITIAL MARKINGS BILATERALLY PROBABLY OF CHRONIC NATURE. MODERATE OPACITY AT THE LEFT LOWER CHEST WHICH COULD BE DUE TO MODERATE ELEVATION OF THE LEFT DIAPHRAGM OR MODERATE PLEUROPARENCHYMAL OPACITY AT THE LEFT BASE. Impression dictated by: Ananth Hanson M.D.02/06/2021 9:49 AM Dictation Location: [place] [address] Transcribed By: [facility] 02/06/2149 Dictated By: Ananth Hanson MD 02/06/2144 Signed By: 02/06/2149 [facility] Vital Signs Date Time Vital Sign Value Performing Clinician Facility 03-17-2023 08:45-0500 Diastolic blood pressure 80 mm[Hg] Nola Zuniga [facility] 03-17-2023 08:45-0500 Heart rate 73 /min Nola Zuniga [facility] 03-17-2023 08:45-0500 Mean blood pressure 97 mm[Hg] Nola Zuniga [facility] 03-17-2023 08:45-0500 Systolic blood pressure 132 mm[Hg] Nola Zuniga [facility] 03-17-2023 08:45-0500 Heart rate 69 /min Nola Zuniga [facility] 03-17-2023 08:45-0500 SaO2% (BldA) [Mass fraction] 93 % Nola Zuniga [facility] 03-17-2023 08:45-0500 Diastolic blood pressure 71 mm[Hg] Nola Zuniga [facility] 03-17-2023 08:45-0500 Mean blood pressure 91 mm[Hg] Nola Zuniga [facility] 03-17-2023 08:45-0500 Systolic blood pressure 131 mm[Hg] Nola Zuniga [facility] 03-17-2023 08:44-0500 Respiratory rate 17 /min Nola Zuniga [facility] 05-04-2022 17:42-0500 Body height 170.18 cm Gretel Lorenz Other [facility] [employer] Other 04-16-2022 16:15-0500 Body height 170.18 cm Gretel Lorenz Other [facility] [employer] Other 04-16-2022 16:15-0500 Body mass index (BMI) [Ratio] 35.86 kg/m2 Gretel Lorenz Other [employer] Other 04-16-2022 16:15-0500 Body weight 103.87 kg Gretel Lorenz Other [employer] Other 04-16-2022 16:15-0500 Diastolic blood pressure 80 mm[Hg] Gretel Lorenz Other [employer] Other 04-16-2022 16:15-0500 SaO2% (BldA) [Mass fraction] 97 % Gretel Lorenz Other [employer] Other 04-16-2022 16:15-0500 Systolic blood pressure 138 mm[Hg] Gretel Lorenz Other [employer] Other Encounters Encounter Date Encounter Type Care Provider Facility Start: 04-12-2023 End: 04-12-2023 ambulatory Gretel Lorenz Other [employer] Other Start: 04-12-2023 Initial nursing facility care/day 35 minutes Gretel Lorenz [facility] Start: 03-19-2023 End: 03-19-2023 ambulatory Gretel Lorenz Other [employer] Other Start: 03-19-2023 Telephone encounter Gretel Lorenz [facility] Start: 03-17-2023 End: 03-17-2023 ambulatory LUCY MENENDEZ Not Available Start: 03-17-2023 End: 03-18-2023 ambulatory Nola Zuniga Facility[place] Start: 03-17-2023 End: 03-17-2023 Patient encounter procedure Nola Zuniga [facility] Start: 02-10-2023 End: 02-10-2023 ambulatory NOLA ZNUIGA Not Available Start: 07-21-2022 End: 07-22-[address] GRETEL LORENZ Facility: Start: 06-30-2022 End: 06-30-2022 ambulatory Gretel Lorenz Other [employer] Other Start: 06-30-2022 Telephone encounter Gretel Lorenz [facility] Start: 06-16-2022 End: 06-16-2022 ambulatory Gretel Lorenz Other [employer] Other Start: 06-16-2022 Telephone encounter Gretel Lorenz [facility] Start: 06-03-2022 End: 06-03-2022 ambulatory Gretel Lorenz Other [employer] Other Start: 06-03-2022 Telephone encounter Gretel Lorenz [facility] Start: 05-11-2022 End: 05-11-2022 ambulatory Gretel Lorenz Other [employer] Other Start: 05-11-2022 Telephone encounter Gretel Lorenz [facility] Start: 05-04-2022 End: 05-04-2022 ambulatory Gretel Lorenz Other [employer] Other Start: 05-04-2022 Telephone encounter Gretel Lorenz [facility] Start: 04-16-2022 End: 04-17-[address] GRETEL LORENZ [employer] Other Start: 04-16-2022 Office outpatient visit 15 minutes Gretel Lorenz [facility] Start: 04-06-2022 End: 04-06-2022 ambulatory Gretel Lorenz Other [employer] Other Start: 04-06-2022 Telephone encounter Gretel Lorenz [facility] Start: 03-20-2022 End: 03-20-2022 ambulatory Gretel Lorenz Other [employer] Other Start: 03-20-2022 Telephone encounter Gretel Lorenz [facility] Start: 03-19-[address] GRETEL LORENZ Facil ity:H1 Procedures Date Procedure Procedure Detail Performing Clinician History of operative procedure on knee Gretel Lorenz Other History of tonsillectomy [facility] leonard Zuniga Immunizations Immunization Date Immunization Notes Care Provider Fa genevieve 01-01-2022 influenza virus vaccine, split virus (incl. purified surface antigen) Gretel Lorenz Other [employer] Other 01-28-2021 influenza virus vaccine, split virus (incl. purified surface antigen) Gretel Lorenz Other [employer] Other 12-07-2019 influenza virus vaccine, split virus (incl. purified surface antigen) Gretel Gerda Other [employer] Other 04-09-2016 pneumococcal polysaccharide vaccine, 23 valent Gretel Gerda Other [employer] Other Payers Date Payer Category Payer Unknown [id number] [id number] 1965 Unknown [id number] [id number] [id number] 1965 Unknown [id number] 2.16.84 [id number] 1965 Unknown [id number] 1965 Unknown [id number] 1965 Unknown [id number] 2.16.8 [id number] 1961 Medicaid [id number] 2. [id number] 1961 Medicare [id number] 2.1 [id number] Social History Date Type Detail Facility Sex Assigned At [facility] Tobacco smoking status No Smoking Status Entered [facility] Functional Status Date Assessment Result Facility 03-17-2023 Functional Status No [facility] Evaluation note 04-12-2023 Note Date & Type Note Facility 04-12-2023 Evaluation note Encounter Date Diagnosis Assessment Notes Mar, Status post right knee replacement (ICD-10 - Z96.651) Reviewed O[facility] report. Percocet refilled last week. Skilled bed. Receiving PT. Mar, Seizure disorder (ICD-10 - G40.909) Reviewed med prescribed by GUILLERMO. Updated medication list. FOllowup w Neurology as scheduled. [employer] Other Clinical Note 04-17-2022 Note Date & Type Note Facility 04-17-2022 Note PROCEDURE: XR KNEE R T 1_2 V HISTORY: Pain of right knee joint since falling 3 weeks ago COMPARISON: None. FINDINGS: BONES:Complete loss of medial joint space with [id number] articulation. Mild-moderate narrowing of lateral compartment and anterior compartment. Prominent periarticular degenerative osteophytes. No fracture or dislocation. SOFT TISSUES:No visible soft tissue swelling. EFFUSION:None visible. OTHER: Negative. IMPRESSION: 1. No acute bone abnormality. 2. Marked degenerative joint disease. Electronically authenticated by: ARELI HOOD Date: 2022-04-17 07:37 [facility] Evaluation note 04-16-2022 Note Date & Type Note Facility 04-16-2022 Evaluation note Encounter Date Diagnosis Assessment Notes Mar, Posterior right knee pain (ICD-10 - M25.561) Mar, Syncope and collapse (ICD-10 - R55) Discussed potential cardiac treatment or testing for this problem. Patient states she never has symptoms except for this 1 time. We will continue to monitor. Has a home alert system with a necklace if needed [employer] Other Evaluation + Plan note Note Date & Type Note Facility Evaluation + Plan note Future Appointments Appointment Date:04/05/2023 10:00:00 AM Scheduled Provider: [facility] Appointment Type:Surgery FT Diagnostic Tests PendingUrine Culture 03/17/23 [facility] Evaluation note Note Date & Type Note Facility Evaluation note No Information [employer] Other History general Narrative - Reported Note Date & Type Note Facility History general Narrative - Reported Type Medical History seizure disorder Medical History HTN (hypertension) Medical History Herpes zoster with complication Medical History Chest pain, cardiac Medical History Dermatitis Medical History DVT (deep venous thrombosis) Medical History Anemia Medical History Gastroesophageal ref lux disease with esophagitis, unspecified whether hemorrhage Medical History COVID-19 virus infection Medical History Pruritic dermatitis Medical History Acute seasonal allergic rhinitis Surgical History tonsillectomy Hospitalization History allergic reaction [employer] Other Hospital course Narrative Note Date & Type Note Facility Hospital course Narrative No data available for this section [facility] Hospital Discharge instructions Note Date & Type Note Facility Hospital Discharge instructions No data available for this section [facility] Progress note Note Date & Type Note Facility Progress note No data available for this section [facility] Summary Purpose Family History No Family History Records FoundNo Family History Records Found No data available for this section No Family History Records FoundNo Family History Records Found Advance Directives No Advanced Directives Records FoundNo Advanced Directives Records FoundNo Advanced Directives Records FoundNo Advanced Directives Records Found Additional Source Comments INFORMATION SOURCE (unrecogn ized section and content) DATE CREATED AUTHOR 04/16/2021 [facility] DATE CREATED AUTHOR AUTHOR'S ORGANIZ ATION 07/29/2022 [facility] DATE CREATED AUTHOR AUTHOR'S ORGANIZ ATION 03/19/2023 [facility] EPIC DATE CREATED AUTHOR AUTHOR'S ORGANIZ ATION 03/21/2023 [facility] REASON FOR VISIT (unrecogniz ed section and content) WILLOWS - s/p R knee replace mentUpdate Med Listcontact personmessagerefill for 90 daysRefillCHECK UPConcern Patient Care team informatio n (unrecognized section and content) Personnel Name: GRETEL LORENZ MD Address: Address: [address] [place] [address] FOR RECORDS PERTAINING TO PATIENTS WHO ARE OR HAVE BEEN ENROLLED IN A CHEMICAL DEPENDENCY/SUBSTANCEABUSE PROGRAM, SOME INFORMATION MAY BE OMITTED. This clinical summary was aggregated from multiple sources. Caution should be exercised in using it in the provision of clinical care. This summary normalizes information from multiple sources, and as a consequence, information in this document may materially change the coding, format and clinical context of patient data. In addition, data may be omitted in some cases. CLINICAL DECISIONS SHOULD BE BASED ON THE PRIMARY CLINICAL RECORDS. [facility]. provides no warranty or guarantee of the accuracy or completeness of information in this document.
--- NOTE | 2023-04-21 09:35 | CT_ITS ---
[address] [address] Patient Name: MASSIEL ELLIOTT MRN: [id number] date: 1965 Sex: F Assigned Patient Location: ER Current Patient Location: ER Accession/Order Number: [id number] Exam Date: 04/21/2023 09:55 Report Date: 04/21/2023 10:57 At the request of: PITO STALEY Procedure: CT angio chest EXAM: CT angio chest HISTORY: hypoxia, shortness of breath COMPARISON: CT from 05/10/2020. TECHNIQUE: CT angio chest FINDINGS: OVERALL DIAGNOSTIC QUALITY: Full diagnostic quality LOWER NECK: No abnormality. CHEST: PULMONARY ARTERIES: Saddle embolus with extensive clot burden extending into both main pulmonary arteries and their distal branches. The clot burden is more pronounced in the lobar, segmental, and subsegmental pulmonary arteries of the lower lobes. LUNGS / AIRWAYS / PLEURA: Mosaic attenuation of the lungs which may be due to respiratory motion. Mild diffuse septal thickening. No peripheral subpleural opacity to suggest pulmonary infarct. HEART / OTHER VESSELS: Flattening of the interventricular septum with increase of the RV/LV ratio, suggestive of right heart strain. MEDIASTINUM / ESOPHAGUS: The esophagus is patulous. LYMPH NODES: None enlarged. CHEST WALL: No significant abnormality. UPPER ABDOMEN: Normal. MUSCULOSKELETAL: No significant abnormality. CT/CT angio chest IMPRESSION: 1. Large saddle embolus with extensive clot burden bilaterally, more pronounced in the lower lobes. Flattening of the interventricular septum and increase of the RV/LV ratio suggests right heart strain. 2. Mild diffuse septal thickening, suggestive of pulmonary edema. No peripheral subpleural opacities to suggest developing pulmonary infarct at this time. <...> Findings were discussed with Pito Staley via telephone by Dr. Paece on 04/21/2023 9:55 AM CLINICAL TECHNICIAN. Electronically authenticated by: NILESH PEACE Date: 04/21/2023 10:57
--- NOTE | 2023-04-21 09:38 | ED.GENADUL1 ---
HPI - General Adult General Chief complaint: Shortness of Breath/Dyspnea Stated complaint: SHORTNESS OF BREATH Time Seen by Provider: 04/21/23 09:30 Source: patient Mode of arrival: ambulance Limitations: no limitations History of Present Illness HPI narrative: Patient had a syncopal event this morning and was found to be hypoxic - no prior history of lung disease or cardiac disease. She had total right knee replacement on 04/05/[address] [facility] and DC'd 04/08/23. She was sent to the [facility] for rehab - she is supposed to be taking Eliquis post-operatively but we do not see that on the current MAR from the [facility]. She told me that yesterday she got dizzy and almost passed out during physical therapy. This morning she was bent over and putting on her pants when she got dizzy and passed out. She denied any new injury or pains but told be that her mid back has been sore the last two days. She denied any recent chest pain or shortness of breath until this morning - she said when she woke after passing out this morning she was short of breath. EMS placed the patient on a non-rebreather because her room air pulse ox was in the 70s at the [facility]. They gave her a breathing treatment and started NS IVF bolus. When she arrived to our ED we removed the oxygen and she quickly desatted -= 79% on room air. Nasal cannula applied at 3LPM and the patient's pulse ox improved to 94%. Related Data Home Medications Medication Instructions Recorded Confirmed calcium carbonate 500 mg calcium 500 mg PO DAILY 11/09/22 04/21/23 (1,250 mg) tablet (Oyster Shell Calcium) carbamazepine 200 mg 200 mg PO DAILY 11/09/22 04/21/23 tablet,extended release,12 hr (Tegretol XR) cetirizine 10 mg tablet 10 mg PO DAILY PRN allergy symptoms 11/09/22 04/21/23 cholecalciferol (vitamin D3) 50 50 mcg PO DAILY 11/09/22 04/21/23 mcg (2,000 unit) capsule famotidine 20 mg tablet 20 mg PO BID 11/09/22 04/21/23 montelukast 10 mg tablet 10 mg PO DAILY 11/09/22 04/21/23 (Singulair) potassium chloride 10 mEq 10 meq PO DAILY 11/09/22 04/21/23 capsule,extended release sertraline 25 mg tablet 25 mg PO DAILY 11/09/22 04/21/23 amoxicillin 500 mg capsule 500 mg PO Q8H 04/21/23 04/21/23 aspirin 325 mg tablet,delayed 325 mg PO DAILY 04/21/23 04/21/23 release docusate sodium 100 mg capsule 100 mg PO BID 04/21/23 04/21/23 (Colace) guaifenesin 1,200 mg tablet, 1,200 mg PO DAILY 04/21/23 04/21/23 extended release 12 hr (Mucinex) ondansetron 4 mg disintegrating 4 mg PO Q4H 04/21/23 04/21/23 tablet oxycodone-acetaminophen 5 mg-325 1 tab PO Q6H 04/21/23 04/21/23 mg tablet Allergies Allergy/AdvReac Type Severity Reaction Status Date / Time No Known Drug Allergies Allergy Verified 11/09/22 14:01 Exam Narrative Exam Narrative: Nurses notes and vital signs reviewed and patient is not hypoxic. afebrile General: Well-appearing and in no apparent distress. Skin: Warm, dry, no pallor noted. No rash. Head: Normocephalic, atraumatic. Neck: Supple, non-tender. Eye: Pupils are equal, round and EOMI. No scleral icterus. Ears, Nose, Mouth, and Throat: Oral mucosa is moist Cardiovascular: Tachycardia. Respiratory: No accessory muscle use or respiratory distress. Lungs without wheezing, rales or rhonchi. Chest Wall: no tenderness, crepitus or subcutaneous emphysema Back: No midline thoracic or lumbar vertebral tenderness. No CVA tenderness Musculoskeletal: Right knee incision without dehiscence. Right lower extremity slightly swollen without erythema or warmth, typical of post-operative changes. Distal right LE with normal ROM, no calf or popliteal tenderness. No sign of long bone fracture on remaining extremities. GI: Abdomen is soft, non-distended. Normal bowel sounds. No tenderness to palpation. No rebound, guarding, or rigidity noted. Neurological: A&O x4. No cranial nerve dysfunction observed. No truncal ataxia. Moves all extremities. Sensation intact. Psychiatric: Cooperative and interactive. Normal mood and affect. Constitutional Vital Signs, click to edit/add: Last Vital Signs Temp 97.9 F 04/21/23 09:29 Pulse 108 H 04/21/23 11:45 Resp 22 04/21/23 11:45 BP 89/63 04/21/23 11:45 Pulse Ox 94 L 04/21/23 11:45 O2 Del Method Room Air 04/21/23 09:42 O2 Flow Rate 4 04/21/23 09:42 Course Vital Signs Vital signs: Vital Signs Pulse Rate 121 H 04/21/23 09:27 Respiratory Rate 22 04/21/23 09:27 Temperature 97.9 F 04/21/23 09:29 Pulse Rate 108 H 04/21/23 11:45 Respiratory Rate 22 04/21/23 11:45 Blood Pressure 89/63 04/21/23 11:45 Pulse Oximetry 94 L 04/21/23 11:45 Oxygen Delivery Method Room Air 04/21/23 09:42 Oxygen Delivery Flow Rate 4 04/21/23 09:42 Medical Decision Making MDM Narrative Medical decision making narrative: Patient was placed on awake overnight monitor and EKG obtained. Blood drawn and sent for evaluation. Patient sent for CT angio chest -concern for post-op fat embolism versus PE. CBC with normal WBC, Hb 9.8, normal platelets and left shift. CMP reveals Na 130 and K 3.4. Normal renal function. Lactate elevated at 3.9. Troponin elevated 356.8. BNP normal. Patient found to have saddle embolism with right heart strain - I spoke with the radiologist by phone. I spoke with the patient in the presence of family and discussed our findings and the diagnosis and recommendation to go to [facility] for clot removal. They are in agreement. Call made @1125 to transfer line to discuss transfer. Dr Chappell accepted and plans to take the patient to surgery for embolectomy. Dr Flores in the ED made aware of ED to ED transfer. Coags ordered and patient will receive heparin bolus and heparin drip. Flight not available due to weather - multiple flight companies called - . [facility] made arrangements for mobile [facility] ambulance to transport by ground [facility]. Transport arrived at 1250 to take the patient. Lab Data Lab results reviewed: Yes I reviewed the patient's lab results Labs: Lab Results 04/21/23 04/21/23 04/21/23 Range/Units 08:37 09:31 11:44 WBC 10.3 (4.0-11.0) 10^3/uL RBC 3.19 L (4.20-5.40) 10^6/uL Hgb 9.8 L (12.0-16.0) g/dL Hct 31.4 L (36.0-48.0) % MCV 98.4 (81.0-99.0) fL MCH 30.7 (26.7-34.0) pg MCHC 31.2 (29.9-35.2) g/dL RDW 14.1 (11.0-15.0) % Plt Count 275 (150-450) 10^3/uL MPV 9.3 L (9.5-13.5) fL Neut % (Auto) 84.1 H (43.0-75.0) % Lymph % (Auto) 5.7 L (20.5-60.0) % [place] % (Auto) 9.3 (1.7-12.0) % Eos % (Auto) 0.0 L (0.9-7.0) % Baso % (Auto) 0.1 L (0.2-2.0) % Neut # (Auto) 8.7 H (1.4-6.5) 10^3/uL Lymph # (Auto) 0.6 L (1.2-3.8) 10^3/uL [place] # (Auto) 1.0 H (0.3-0.8) 10^3/uL Eos # (Auto) 0.0 (0.0-0.7) 10^3/uL Baso # (Auto) 0.0 (0.0-0.1) 10^3/uL Abs Immat Gran (auto) 0.08 H (0.00-0.03) 10^3/uL Imm/Tot Granulo (auto) 0.8 H (0.0-0.5) % PT 11.9 H (9.0-11.6) sec INR 1.13 APTT 28.1 (22.3-36.2) sec Sodium 130 L (136-145) mmol/L Potassium 3.4 L (3.5-5.1) mmol/L Chloride 98 (98-107) mmol/L Carbon Dioxide 28.1 (21.0-32.0) mmol/L Anion Gap 7.3 BUN 14.0 (7.0-18.0) mg/dL Creatinine 0.91 (0.55-1.02) mg/dL Est GFR ( Amer) >60 (>=60) Est GFR (Non-Af Amer) >60 (>=60) BUN/Creatinine Ratio 15.4 Glucose 157 H (74-106) mg/dL Lactate 3.9 H* 2.3 H* (0.4-2.0) mmol/L Calcium 8.2 L (8.5-10.1) mg/dL Total Bilirubin 0.5 (0.2-1.0) mg/dL AST 34 (15-37) U/L ALT 30 (14-59) U/L Alkaline Phosphatase 122 H (46-116) U/L Troponin I High Sens 356.8 H* (4.0-51.3) pg/mL NT-Pro-B Natriuret Pep 173.0 (<=900.0) pg/mL Total Protein 6.3 L (6.4-8.2) g/dL Albumin 2.6 L (3.4-5.0) g/dL Globulin 3.7 g/dL Albumin/Globulin Ratio 0.7 Procalcitonin 0.13 (0.00-0.50) ng/mL Imaging Data CT scan - chest: Radiologist's impression: ITS Impressions Chest CTA 04/21/23 09:35 IMPRESSION: 1. Large saddle embolus with extensive clot burden bilaterally, more pronounced in the lower lobes. Flattening of the interventricular septum and increase of the RV/LV ratio suggests right heart strain. 2. Mild diffuse septal thickening, suggestive of pulmonary edema. No peripheral subpleural opacities to suggest developing pulmonary infarct at this time. <...> Findings were discussed with Tesfaye Loyd via telephone by Dr. Peace on 04/21/2023 9:55 AM SPECIAL EDUCATION COORDINATOR. Electronically authenticated by: NILESH PEACE Date: 04/21/2023 10:57 ECG Data Attestation: I personally reviewed and interpreted this ECG as follows: Interpretation: EKG interpretation: Emergency Department physician interpretation. Sinus tachycardia at 117bpm. LVH, short WI interval and non specific T wave changes. No ST segment elevation or depression. Critical Care Time Critical Care Time Critical Care Time: Yes Total Critical Care Time: 75 Attestation: Critical Care Time: 75 minutes, critical care time is separate from any procedures that are performed. The following was considered in the determination of critical care but not limited to the level medical decision-making, intensive cardiac and/or respiratory monitor, frequent vital sign monitoring, evaluation of laboratory studies, evaluation of a radiographic studies, oxygen monitoring and constant monitoring. Discharge Plan Discharge Chief Complaint: Shortness of Breath/Dyspnea Clinical Impression: Pulmonary embolism, Elevated troponin Patient Disposition: [facility] Time of Disposition Decision: 11:08 Discharge Location: [facility]
--- NOTE | 2023-04-21 10:08 | PC.NURSE ---
Pt SpO2 87% on 3L NC. Bumped pt's O2 up to 4L NC -- SpO2 now 95%
[2023-04-21 10:45] LABS: Basophils Percent Auto 0.1 % (0.2-2.0); Hematocrit 31.4 % (36.0-48.0); Hemoglobin 9.8 g/dL (12.0-16.0); Immature Granulocytes Abs Auto 0.08 10^3/uL (0.00-0.03); Immature Granulocytes Pct Auto 0.8 % (0.0-0.5); Lymphocytes Absolute Auto 0.6 10^3/uL (1.2-3.8); Lymphocytes Percent Auto 5.7 % (20.5-60.0); Mean Corpuscular HGB Conc 31.2 g/dL (29.9-35.2); Mean Corpuscular Hemoglobin 30.7 pg (26.7-34.0); Mean Corpuscular Volume 98.4 fL (81.0-99.0); Mean Platelet Volume 9.3 fL (9.5-13.5); Monocytes Percent Auto 9.3 % (1.7-12.0); Neutrophils Absolute Auto 8.7 10^3/uL (1.4-6.5); Neutrophils Percent Auto 84.1 % (43.0-75.0); Platelet Count 275 10^3/uL (150-450); Red Blood Count 3.19 10^6/uL (4.20-5.40); Red Cell Distribution Width 14.1 % (11.0-15.0); White Blood Count 10.3 10^3/uL (4.0-11.0)
[2023-04-21 11:06] LABS: Alanine Aminotransferase 30 U/L (14-59); Albumin Globulin Ratio 0.7; Albumin Level 2.6 g/dL (3.4-5.0); Alkaline Phosphatase 122 U/L (46-116); Anion Gap 7.3; Aspartate Amino Transferase 34 U/L (15-37); BUN Creatinine Ratio 15.4; Bilirubin Total 0.5 mg/dL (0.2-1.0); Calcium 8.2 mg/dL (8.5-10.1); Carbon Dioxide 28.1 mmol/L (21.0-32.0); Chloride 98 mmol/L (98-107); Estimated GFR (African America >60 (>=60); Estimated GFR (Non-African Ame >60 (>=60); Globulin 3.7 g/dL; Glucose 157 mg/dL (74-106); Potassium 3.4 mmol/L (3.5-5.1); Sodium 130 mmol/L (136-145); Total Protein 6.3 g/dL (6.4-8.2)
[2023-04-21 11:15] LABS: Troponin I High Sensitivity 356.8 pg/mL (4.0-51.3)
[2023-04-21 11:16] LABS: Lactate/Lactic Acid 3.9 mmol/L (0.4-2.0)
[2023-04-21] MEDS: HEPARIN SODIUM (PORCINE) 5,000 UNIT/ML VIAL 6000 UNIT IV (11:37)
[2023-04-21] MEDS: HEPARIN SODIUM,PORCINE/D5W 25,000 UNIT/500 ML IV.SOLN 27 UNIT IV (11:39)
[2023-04-21 11:44] LABS: INR 1.13; Partial Thromboplastin Time 28.1 sec (22.3-36.2); Prothrombin Time 11.9 sec (9.0-11.6)
[2023-04-21 11:45] LABS: PROCALCITONIN 0.13 ng/mL (0.00-0.50)
[2023-04-21 12:31] LABS: Lactate/Lactic Acid 2.3 mmol/L (0.4-2.0)
== END 2023-04-21 13:20 | disposition short-term general hospital (02) ==
PROVIDERS: Emergency Provider Emergency Medicine; PCP Family Medicine
DX: I26.92 Saddle embolus of pulmonary artery without acute cor pulmonale (principal); R79.89 Other specified abnormal findings of blood chemistry; Z96.651 Presence of right artificial knee joint; Z79.899 Other long term (current) drug therapy; R06.02 Shortness of breath
CPT/HCPCS: 36415; 71275; 80053; 83605; 83880; 84145; 84484; 85025; 85610; 85730; 87040; 93005; 96374; 99285; J1644; Q9967

== ENCOUNTER 2023-05-15 15:28 | Emergency (ER) | payer MEDICARE, MEDICAID, SELFPAY ==
[2023-05-15] VITALS (17 sets, daily range): BP systolic 137–175; BP diastolic 62–82; PULSE 82; RESP 18–22; TEMP 36.7–36.8; O2SAT 93–98; BMI 28.7
--- OUTSIDE RECORDS SUMMARY | 2023-05-15 15:39 | XMS_ITS | CCD ---
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 Name Role Phone Cassie Lorenz Unavailable GERDA, DR CASSIE Jaramillo Primary Care Unavailable LORENZ, DR CASSIE Jaramillo Admitting Unavailable ERWIN, DR ARELI Dewey Consulting Unavailable LORENZ, DR CASSIE Jaramillo Attending Unavailable LORENZ, DR CASSIE Jaramillo Consulting Unavailable LORENZ, DR CASSIE Jaramillo Primary Care Unavailable LORENZ, DR CASSIE Jaramillo Admitting Unavailable BAKARI SOLO Consulting Unavailable LORENZ, DR CASSIE Jaramillo Attending Unavailable LORENZ, DR CASSIE Jaramillo Consulting Unavailable LORENZ, DR CASSIE Jaramillo Primary Care Unavailable LORENZ, DR CSASIE Jaramillo Admitting Unavailable LOERNZ, DR CASSIE Jaramillo Attending Unavailable CASSIE LORENZ Primary Care Physician [phone] LUYC MENENDEZ Attending Unavailable NOLA ZUNIGA Referring Unavailable NOLA ZUNIGA Attending Unavailable Unavailable Primary Care Provider Unavailhortencia e MATEUS, LUISITO LOPEZ Attending Unavaila ble AKBANI, LUISITO JOHN Referring Unavaila ble AKBANI, LUISITO JOHN Referring Unavaila ble AKBANI, LUISITO LOPEZ Attending Unavaila ble AVASTHI, ABHINAV Admitting Unavailable ISMAEL REYNOLDS Attending Unavailable WERNER PARRA Consulting Unavailable LUISJOSELYN Hull Consulting Unavailable ROSA ELENA SCHWARTZ Consulting Unavailable RAYO PATEL Consulting Unavailable EMILY LOPES Consulting Unavailable MATEUS, LUISITO LOPEZ Consulting Unavaila Nola Graves Referring Unavailable Nola Zuniga Admitting Unavailable Nola Zuniga Attending Unavailable Nola Zuniga Referring Unavailable BLADE, Radha Consulting Unavailable Nola Zuniga Admitting Unavailable Nola Zuniga Attending Unavailable BLADE, AGPCNP Radha Consulting Unava ilable BLADE, Radha Consulting Unavailable BLADE, Radha Consulting Unavailable BLADE, Radha Consulting Unavailable BLADE, Radha Consulting Unavailable BLADE, Radha Consulting Unavailable BLADE, Radha Consulting Unavailable BLADE, Radha Consulting Unavailable BLADE, Radha Consulting Unavailable Allergies Allergy Classification Reported Allergen(s) Allergy Type Date of Onset Reaction(s) Facility (15 sources) diphenhydrAMINE Drug Allergy Unknown [facility] Other (17 sources) Phenytoin; Translations: [phenytoin] Drug Allergy 04-21-19 24 Unknown, Rash [facility] (15 sources) Seasonal allergy Propensity to adverse reactions Unknown [facility] Other (3 sources) Phenytoin; Translations: [Dilantin] Drug Allergy 05-26-19 15 [facility] Repository Medications Current Medications Medication Drug Class(es) Dates Sig (Normalized) Sig (Original) Acetaminophen (1 source) Start: 04-21-2023 acetaminophen (TYLENOL) tablet 650 mg acetaminophen 325 mg / oxyCODONE hydrochloride 5 mg oral tablet (7 sources) Opioid Agonist Start: 04-09-2023 take 1 tablet by mouth every six hours oxyCODONE-Acetamino phen 5-325 MG 1 tablet as needed Orally every 6 hrs for 15 days Mar, Active albuterol 0.833 mg/ml / ipratropium bromide 0.167 mg/ml inhalation solution (3 sources) Anticholinergic, beta2-Adrenergic Agonist Start: 04-27-2023 take 3 mL by inhalation every four hours as needed ipratropium 0.5 mg-albuterol 2.5 mg (DUONEB) 0.5-2.5 (3) MG/3ML SOLN nebulizer solution Inhale 3 mLs into the lungs every 4 hours as needed for Shortness of Breath 360 mL 1 04/27/2023 Active Start: 04-26-2023 End: 04-27-2023 ipratropium 0.5 mg-albuterol 2.5 mg (DUONEB) nebulizer solution 1 Dose apixaban 5 mg oral tablet (1 source) Factor Xa Inhibitor Start: 03-17-2023 take 1 tablet by mouth twice daily Eliquis 5 mg oral tablet 5 mg = 1 tab(s), Oral, BID, Refills(s) 0, Blood Thinner Start Date: 03/17/23 Status: Ordered aspirin 325 mg oral tablet (15 sources) Platelet Aggregation Inhibitor, Nonsteroidal Anti-inflammatory Drug [...] daily x 4 more days Feb, Active benzonatate 100 mg oral capsule (1 source) Non-narcotic Antitussive Start: 04-27-2023 benzonatate (TESSALON) capsule 200 mg calcium carbonate 1250 mg oral tablet (15 sources) take 1 tablet by mouth once daily Oyster Shell Calcium 500 MG TAKE 1 TABLET BY MOUTH EVERY DAY for 90 Active take 1 tablet by mouth once zoila y calcium carbonate (TUMS) 500 MG chewable tablet Take 1 tablet by mouth daily 0 Active take 1 tablet by [facility] twice daily at mealtime Oyster Calcium 500 MG 1 tablet with food Orally Twice a day Active 12 hr carBAMazepine 200 mg extended release oral capsule (20 sources) Mood Stabilizer Start: 04-22-2023 carBAMazepine (CARBATROL) extended release capsule 200 mg Start: 03-17-2023 End: 04-28-2023 take 1 tablet by mouth once daily Tegretol XR 200 mg oral tablet, extended release 200 mg = 1 tab(s), Oral, Daily, Refills(s) 0, Seizure Start Date: 03/17/23 Status: Ordered TEGretol 200 MG Orally Active take 1 capsule by [facility] twice daily cefTRIAXone (ROCEPHIN) 1000 mg in sterile water 10 mL IV syringe (1 source) Start: 04-26-2023 End: 05-01-2023 cefTRIAXone (ROCEPHIN) 1000 mg in sterile water 10 mL IV syringe cetirizine hydrochloride 10 mg oral tablet (18 sources) Histamine-1 Receptor Antagonist Start: 03-17-2023 cetirizine (ZYRTEC) tablet 10 mg cholecalciferol 0.05 mg oral tablet (11 sources) Vitamin D Start: 03-17-2023 take 1 tablet by mouth once daily cholecalciferol 2000 intl units oral tablet (Vitamin D3) 50 mcg = 1 tab(s), Oral, Daily, Refills(s) 0, Prophylaxis Start Date: 03/17/23 Status: Ordered take 2 tablets by mouth once sveta ly vitamin D (CHOLECALCIFEROL) 25 MCG (1000 UT) TABS tablet Take 2 tablets by mouth daily 0 Active take 1 tablet by mouth once zoila y Vitamin D 50 MCG (2000 UT) TAKE 1 TABLET BY MOUTH EVERY DAY for 90 Active take 1 capsule by [facility] every twenty-four hours Vitamin D3 50 MCG (1999 UT) 1 capsule Or ally Once a day Active ciprofloxacin 500 mg oral tablet (8 sources) Quinolone Antimicrobial Start: 03-13-2015 take 1 tablet by mouth every twelve hours docusate sodium 100 mg oral capsule (8 sources) Start: 04-22-2023 docusate sodiu m (COLACE) capsule 100 mg take 1 capsule by [facility] every twenty-four hours Colace 100 MG 1 capsule as needed Orally Once a day Active famotidine 20 mg oral tablet (17 sources) Histamine-2 Receptor Antagonist Start: 03-17-2023 End: 04-27-2023 take 1 tablet by mouth twice daily famotidine 20 mg Tab 20 mg = 1 tab(s), Oral, BID, Refills(s) 0, Control of stomach acid Start Date: 03/17/23 Status: Ordered take 1 tablet by [facility] every twenty-four hours Famotidine 20 MG 1 tablet at bedtime as needed Orally Once a day Active 12 hr guaiFENesin 600 mg extended release oral tablet (2 sources) Start: 04-22-2023 guaiFENesin (M UCINEX) extended release tablet 1,200 mg take 2 tablets by mouth twice da ever guaiFENesin (MUCINEX) 600 MG extended release tablet Take 2 tablets by mouth 2 times daily 0 Active 250 ml heparin sodium, porcine 100 unt/ml injection (7 sources) Unfractionated Heparin, Anti-coagulant Start: 04-26-2023 heparin 25,000 units in dextrose 5% 250 mL (premix) infusion Start: 04-26-2023 heparin (porci ne) injection 4,320 Units Start: 04-26-2023 End: 04-26-2023 heparin (porcine) injection 8,640 Units Start: 04-21-2023 End: 04-22-2023 heparin 25,000 units in dext moe 5% 250 mL (premix) infusion Start: 04-21-2023 End: 04-24-2023 heparin (porcine) injection 3,000 Units hydrOXYzine hydrochloride 25 mg oral tablet (9 sources) Antihistamine take 1 tablet by mouth once daily at bedtime as needed hydrOXYzine HCl 25 MG TAKE 1 TABLET BY MOUTH EVERY DAY AT BEDTIME NEEDED for 90 Active lacosamide 150 mg oral tablet (5 sources) Anti-epileptic Agent Start: 04-28-19 End: 04-27-19 take 1 tablet by mouth every twelve hours Lacosamide 150 MG 1 tablet Orally Twice a day for 30 days Apr, Active Start: 04-27-2023 lacosamide ( MPAT) tablet 150 mg ammonium lactate 120 mg/ml topical lotion (3 sources) Start: 04-28-2023 ammonium lacta te (LAC-HYDRIN) 12 % lotion Apply topically as needed. 57 g 1 04/28/2023 Active Start: 04-26-2023 apply 1 dose topically once da ever Topical, DAILY, First dose on Wed04/26/23 at 1545 Apply to lower extremity toes and feet Ammonium Lactate 12 % 1 application External Twice a day as needed for dry skin for 30 days Active 50 ml magnesium sulfate 40 mg/ml injection (1 source) Start: 04-21-2023 take 2000 mg intravenously every hour as needed 2,000 mg, IntraVENous, at 25 mL/hr, Admi nister over 2 Hours, PRN, Other, Per IV Magnesium Replacement Protocol, Starting on Wed04/21/23 at 1759 Mg Lab Replacement Action 1.4- 1.6 2 gram IVPB x 1 doses &nb sp; (2 gram Total) 1.0-1.3 2 gram IVPB x 2 doses &nb sp; (4 gram Total) less than 1.0 CALL PHYSICIAN and &n bsp; 2 gram IVPB x 2 doses (4 gram Total) Infuse at 1 gram/hr Repeat Mag level next AM Protocol not for use in Patients with CrCl less than 30mL/min meloxicam 15 mg oral tablet (8 sources) N o n s t e r o i d a l A n t i - i n f l a m m a t o r y D r u g Start: 04-16-2022 take 1 tablet by mouth every twenty-four hours Meloxicam 15 MG 1 tablet Orally Once a d ay for 30 day(s) Mar, Active montelukas t 10 mg oral tablet (20 sources) L e u k o t r i e n e R e c e p t o r A n t a g o n i s t Start: 03-17-2023 montelukast (SINGULAIR) tabl et 10 mg ondansetro n 4 mg oral tablet (1 source) S e r o t o n i n - 3 R e c e p t o r A n t a g o n i s t take 1 tablet by mouth every four hours as needed for nausea ondansetron (ZOFRAN) 4 MG tablet Take 1 tablet by mouth every 4 hours as needed for Nausea or Vomiting 0 Active ondansetro n (ZOFRAN-OD T) disintegra ting tablet 4 mg (1 source) Start: 04-21-2023 ondansetron (ZOFRAN-ODT) dis integrating tablet 4 mg Oyster Shell Calcium 1250 mg (500 mg elemental calcium) oral tablet (1 source) Start: 03-17-2023 Oyster Shell Calcium 1250 mg (500 mg elemental calcium) oral tablet 1,250 mg = 1 tab(s), Oral, Daily, Refills(s) 0, Prophylaxis Start Date: 03/17/23 Status: Ordered Oyster Shell Calcium 500 MG (1 source) take 1 tablet by mouth once daily Oyster Shell Calcium 500 MG TAKE 1 TABLE T BY MOUTH EVERY DAY for 90 Active pantoprazo le 40 mg delayed release oral tablet (3 sources) P r o t o n P u m p I n h i b i t o r Start: 04-28-2023 take 1 tablet by mouth once daily before breakfast pantoprazole (PROTONIX) 40 MG tablet Bernard e 1 tablet by mouth every morning (before breakfast) 30 tablet 3 04/28/2023 Active Start: 04-22-2023 End: 04-26-2023 pantoprazole (PROTONIX) tabl et 40 mg Potassium Chloride (20 sources) Start: 04-21-2023 potassium chlo ride 20 mEq/50 mL IVPB (Central Line) Start: 03-17-2023 take 1 tablet by pepper once daily Potassium Chloride (Teg-Bcmk-Tat 10) 10 mEq oral tablet, extended release 10 mEq = 1 tab(s), Oral, Daily, Refills(s) 0, Prophylaxis Start Date: 03/17/23 Status: Ordered take 1 tablet by pepper once daily Potassium Chloride ER 10 MEQ TAKE 1 TABLET BY MOUTH EVERY DAY for 90 Active take 1 capsule by mo [facility] once daily potassium chloride (MICRO-K) 10 MEQ extended release capsule Take 1 capsule by mouth daily 0 Active Potassium Chlori de 10 MEQ Orally Active predniSONE 20 mg oral tablet (2 sources) Start: 06-25-2022 take 2 tablets by mouth every twenty-four hours predniSONE 20 MG 2 tablets Orally Once a day for 5 days Jun, Active primidone 50 mg oral tablet (9 sources) Anti-epilepti c Agent Start: 03-17-2023 take 1 tablet by mouth once daily at bedtime primidone 50 mg Tab 50 mg = 1 tab(s), Oral, Once a day (at bedtime), Refills(s) 0, Seizure Start Date: 03/17/23 Status: Ordered Primidone 50 MG 13 Orally Once per day Active sertraline 25 mg oral tablet (18 sources) Serotonin Reuptake Inhibitor Start: 03-17-2023 sertraline (ZOLOFT) tablet 25 mg warfarin sodium 7.5 mg oral tablet (7 sources) Vitamin K Antagonist Start: 04-28-2023 warfarin (COUMADIN) tablet 7.5 mg Start: 04-27-2023 End: 05-27-2023 take 1 tablet by mouth once daily warfarin (COUMADIN) 2.5 MG tablet Take 1 tablet by mouth daily 30 tablet 0 04/27/2023 05/27/2023 Active Start: 04-26-2023 warfarin (COUM DAVID) tablet 7.5 mg Start: 04-23-2023 warfarin (COUM DAVID) tablet 10 mg warfarin placeholder: dosing by pharmacy (1 source) Start: 04-23-[address]: dosing by pharmacy Completed/Discontinued Medications Medication Drug Class(es) Dates Sig (Normalized) Sig (Original) amoxicillin 500 mg oral capsule (1 source) Penicillin-class Antibacterial End: 04-27-2023 take 1 capsule by mouth three times daily amoxicillin (AMOXIL) 500 MG capsule Take 1 capsule by mouth 3 times daily 0 04/27/2023 Discontinued (Stop Taking at Discharge) 2 ml fentaNYL 0.05 mg/ml injection (1 source) Opioid Agonist Start: 04-21-2023 End: 04-21-2023 fentaNYL (SUBLIMAZE) injection 50 mcg Start: 04-21-2023 End: 04-21-2023 fentaNYL (SUBLIMAZE) injecti on 50 mcg 4 ml furosemide 10 mg/ml injection (9 sources) Loop Diuretic Start: 04-26-2023 End: 04-26-2023 furosemide (LASIX) injection 20 mg take 1 tablet by mouth every twe nty-four hours methylPREDNISolone 40 mg injection (1 source) Corticosteroid Start: 04-26-2023 End: 04-26-2023 methylPREDNISolone sodium (SOLU-MEDROL) injection 40 mg polyethylene glycol 3350 33674 mg powder for oral solution (1 source) Osmotic Laxative Start: 04-21-2023 17 g, Oral, D AILY PRN, Starting on Wed04/21/23 at 1759, Until Discontinued, Constipation First line therapy for constipation 1000 ml sodium chloride 9 mg/ml injection (4 sources) Start: 04-26-2023 End: 04-26-2023 0.9 % sodium chloride infusion Start: 04-21-2023 take 1 dose intraven ously twice daily 5-40 mL, IntraVENous, EVERY 12 HOURS SCHEDULED (2 times per day), First dose on Wed04/21/23 at 2100, Until Discontinued For Line Patency: Peripheral IV = 5 mL; Midline or Central Line = 10 mL/lumen. If following IV push medication, administer flush at same rate as the IV push. Flush volume is determined by type of infusion therapy being given. For non-viscous solutions use: Peripheral IV = 5 mL Midline or Central Line = 10 mL/lumen For viscous solutions (i.e. blood components, parenteral nutrition, contrast media, or after obtaining blood sample) use: Peripheral IV = 10 mL Midline or Central Line = 20 mL/lumen Start: 04-21-2023 IntraVENous, a t 5-250 mL/hr, PRN, if patient receiving piggyback infusions and maintenance fluids are not ordered OR KVO fluids to protect IV site / prevent frequent line interruptions/ long duration, Starting on Wed04/21/23 at 1759 For piggyback infusion, administer at same rate as piggyback for a total of 25 mL. Enter 25 mL into dose field and piggyback rate into rate field of order. If piggyback is infusing at a rate less than 100 mL/hr, enter 25 mL into dose field and 100 mL/hr into rate field of order. For KVO fluids, enter rate of 20 mL/hr or less into rate field of order. Start: 04-21-2023 take 5-40 mL intrave nously once as needed 5-40 mL, IntraVENous, PRN, Starting on Wed04/21/23 at 1759, Until Discontinued, Line Care, After every IV line use For Line Patency: Peripheral IV = 5 mL; Midline or Central Line = 10 mL/lumen. If following IV push medication, administer flush at same rate as the IV push. Flush volume is determined by type of infusion therapy being given. For non-viscous solutions use: Peripheral IV = 5 mL Midline or Central Line = 10 mL/lumen For viscous solutions (i.e. blood components, parenteral nutrition, contrast media, or after obtaining blood sample) use: Peripheral IV = 10 mL Midline or Central Line = 20 mL/lumen triamcinolone acetonide 40 mg/ml injectable suspension (17 sources) Corticosteroid Start: 06-25-2022 Kenalog-40 Jun, 60 mg Triamcinolone Ac etonide 0.1 % 1 application Externally Two times a Week Active Problems Active Problems Problem Classification Problem Date Documented Da te Episodic/Chronic Allergic reactions (15 sources) Inflammatory dermatosis; Translations: [Dermatitis, unspecified] Episodic Deficiency and other anemia (15 sources) Anemia; Translations: [Anemia, unspecified] Episodic Developmental disorders (1 source) Cognitive developmental delay 03-17-2023 Chronic Epilepsy; convulsions (12 sources) Seizure disorder; Translations: [Epilepsy, unspecified, not intractable, without status epilepticus] Onset: 04-22-2023 Chronic Esophageal disorders (7 sources) Gastro-esophageal reflux disease with esophagitis; Translations: [Gastroesophageal reflux disease with esophagitis, unspecified whether hemorrhage] Chronic Essential hypertension (15 sources) Hypertensive disorder; Translations: [Essential (primary) hypertension] Chronic Nonspecific chest pain (15 sources) Chest pain; Translations: [Chest pain, unspecified] Episodic Osteoarthritis (1 source) Unilateral primary osteoarthritis, right knee; Translations: [UNI PRIM OSTEOARTHRITIS RT KNEE] Onset: 04-20-2022 Chronic Other connective tissue disease (2 sources) Presence of right artificial knee joint Chronic Other connective tissue disease (2 sources) Artificial knee joint present; Translations: [Presence of right artificial knee joint] Chronic Other diseases of veins and lymphatics (2 sources) Peripheral venous insufficiency; Translations: [Venous insufficiency (chronic) (peripheral)] Onset: 09-04-2022 04-27-2023 Episodic Other diseases of veins and lymphatics (1 source) Venous insufficiency (chronic) (peripheral); Translations: [Venous insufficiency (chronic) (peripheral)] Onset: 04-22-2023 Episodic Other inflammatory condition of skin (8 sources) Pruritus of skin; Translations: [Pruritus, unspecified] Episodic Other inflammatory condition of skin (7 sources) Pruritus, unspecified; Translations: [Pruritic dermatitis] Episodic Other nervous system disorders (9 sources) Chronic pain; Translations: [Other chronic pain] Chronic Other nutritional; endocrine; and metabolic disorders (2 sources) Obese class I; Translations: [Obesity, unspecified] Onset: 04-22-2023 04-26-2023 Chronic Other screening for suspected conditions (not mental disorders or infectious disease) (4 sources) Encounter for screening mammogram for malignant neoplasm of breast; Translations: [ENC SCR MAMMO MALIG NEOPLASM BREAST] Onset: 07-21-2022 Episodic Other upper respiratory disease (15 sources) Seasonal allergic rhinitis; Translations: [Other seasonal allergic rhinitis] Chronic Peripheral and visceral atherosclerosis (2 sources) Intermittent claudication; Translations: [Peripheral vascular disease, unspecified] Onset: 04-21-2023 04-26-2023 Chronic Phlebitis; thrombophlebitis and thromboembolism (18 sources) Deep venous thrombosis; Translations: [Acute embolism and thrombosis of unspecified deep veins of unspecified lower extremity] Onset: 04-22-2023 04-26-2023 Episodic Pulmonary heart disease (7 sources) Saddle embolus of pulmonary artery; Translations: [Saddle embolus of pulmonary artery without acute cor pulmonale] Onset: 04-21-2023 04-21-2023 Chronic Pulmonary heart disease (2 sources) Pulmonary embolism; Translations: [Other pulmonary embolism without acute cor pulmonale] Onset: 04-21-2023 04-26-2023 Episodic Residual codes; unclassified (2 sources) Peripheral pulse absent; Translations: [Other specified health status] Onset: 04-27-2023 04-27-2023 Episodic Respiratory failure; insufficiency; arrest (adult) (2 sources) Acute respiratory failure; Translations: [Acute respiratory failure with hypoxia] Onset: 04-22-2023 04-22-2023 Episodic Syncope (3 sources) Syncope and collapse; Translations: [Syncope] Onset: 04-22-2023 Episodic Unclassified (1 source) History of clinical finding in subject 03-17-2023 Viral infection (15 sources) Herpes zoster with complication; Translations: [Zoster with other complications] Episodic Past or Other Problems Problem Classification Problem Date Documented Da te Episodic/Chronic Esophageal disorders (8 sources) Esophageal disorders; Translations: [Gastroesophageal reflux disease with esophagitis, unspecified whether hemorrhage] Other non-traumatic joint disorders (5 sources) Pain in right knee; Translations: [PAIN IN RIGHT KNEE] Onset: 04-16-2022 Episodic Viral infection (15 sources) Disease caused by 2019-nCoV; Translations: [COVID-19] Results Test Name Value Interpretation Reference Range Facility Discharge Instructionson Discharge Instructions [id number] IFF Normal [facility] Transfer Documentson 024 Transfer Documents [id number] IFF Normal [facility] Anti-Xa, Unfractionated Hepa rinon 04-28-2023 Anti-XA Unfrac Heparin <0.10 IU/L [facility] Anion gap [Moles/Vol] 9 mmol/L 9 - 17 mmol/L [facility] Calcium [Mass/Vol] 8.7 mg/dL 8.6 - 10. 4 mg/dL [facility] Chloride [Moles/Vol] 99 mmol/L 98 - 10 7 mmol/L [facility] CO2 [Moles/Vol] 28 mmol/L 20 - 31 mmol/L [facility] Creatinine [Mass/Vol] 0.5 mg/dL 0.5 - 0.9 mg/dL [facility] GFR/1.73 sq M.predicted MDRD (S/P/Bld) [Vol rate/Area] - PINF [facility] Comment on above: These results are not intended for use in patients <18 years of age. eGFR results are calculated without a race factor using the 2020 CKD-EPI equation. Careful clinical correlation is recommended, particularly when comparing to results calculated using previous equations. The CKD-EPI equation is less accurate in patients with extremes of muscle mass, extra-renal metabolism of creatine, excessive creatine ingestion, or following therapy that affects renal tubular secretion. Glucose [Mass/Vol] 119 mg/dL High 70 - 99 mg/dL [facility] Interpretation and review of laboratory results Abnormal [facility] Potassium [Moles/Vol] 4.1 mmol/L 3.7 - 5.3 mmol/L [facility] Sodium [Moles/Vol] 136 mmol/L 135 - 144 mmol/L [facility] Urea nitrogen [Mass/Vol] 13 mg/dL 6 - 20 mg/dL [facility] Basic Metabolic Profon 04-28 Anion gap [Moles/Vol] 9 mmol/L Normal 9-17 [facility] Comment on above: Performed By: #### B MARK FORD, PT #### [facility] [address] [place] [id number] [employer] C[employer]: Romel Clemons MD Calcium [Mass/Vol] 8.7 mg/dL Normal 8.6-10.4 [facility] Comment on above: Performed By: #### B MARK FORD, PT #### [facility] [address] [place] [phone] Hoop Cutter: Romel Clemons MD Chloride [Moles/Vol] 99 mmol/L Normal 98-107 [facility] Comment on above: Performed By: #### B MARK FORD, PT #### [facility] [address] [place] [phone] Hoop Cutter: Romel Clemons MD CO2 [Moles/Vol] 28 mmol/L Normal 20-31 [facility] Comment on above: Performed By: #### B MARK FORD, PT #### [facility] [address] [place] [phone] Hoop Cutter: Romel Clemons MD Creatinine [Mass/Vol] 0.5 mg/dL Normal 0.5-0.9 [facility] Comment on above: Performed By: #### B MARK FORD, PT #### [facility] [employer] [address] [place] [phone] Hoop Cutter: Romel Clemons MD GFR/1.73 sq M.predicted among non-blacks MDRD (S/P/Bld) [Vol rate/Area] mL/min/{1.73_m2} Normal >60 [facility] Comment on above: Result Comment: These results are not intended for use in patients <18 years of age. eGFR results are calculated without a race factor using the 2020 CKD-EPI equation. Careful clinical correlation is recommended, particularly when comparing to results calculated using previous equations. The CKD-EPI equation is less accurate in patients with extremes of muscle mass, extra-renal metabolism of creatine, excessive creatine ingestion, or following therapy that affects renal tubular secretion. Performed By: #### B MARK FORD, PT #### [facility] [employer] [address] [place] [phone] Hoop Cutter: Romel Clemons MD Glucose [Mass/Vol] 119 mg/dL High 70-99 [facility] Comment on above: Performed By: #### B MARK FORD, PT #### [facility] [employer] [address] [place], [place] [id number] Hoop Cutter: Romel Clemons MD Potassium [Moles/Vol] 4.1 mmol/L Normal 3.7-5.3 [facility] Comment on above: Performed By: #### B MARK FORD, PT #### [facility] [address] [place] [address] Hoop Cutter: Romel Clemons MD Sodium [Moles/Vol] 136 mmol/L Normal 135-144 [facility] Comment on above: Performed By: #### B MARK FORD, PT #### [facility] [employer] [address] [place] [address] Hoop Cutter: Romel Clemons MD Urea nitrogen [Mass/Vol] 13 mg/dL Normal 6-20 [facility] Comment on above: Performed By: #### B MARK FORD, PT #### [facility] [employer] [address] [place] [address] Hoop Cutter: Romel Clemons MD CBCon 04-28-2023 Erythrocyte distribution width (RBC) [Ratio] 13.9 % Normal 11.8-14.4 [facility] Comment on above: Performed By: #### B MARK FORD, PT #### [facility] [address] [place] [address] Hoop Cutter: Romel Clemons MD Hematocrit (Bld) [Volume fraction] 30.1 % Low 36.3-47.1 [facility] Comment on above: Performed By: #### B MARK FORD, PT #### [facility] [address] [place] [address] Hoop Cutter: Romel Clemons MD Hemoglobin (Bld) [Mass/Vol] 9.5 g/dL Low 11.9-15.1 [facility] Comment on above: Performed By: #### B MARK FORD, PT #### [facility] [address] [place] [address] Hoop Cutter: Romel Clemons MD MCH (RBC) [Entitic mass] 30.1 pg Normal 25.2-33.5 [facility] Comment on above: Performed By: #### B MARK FORD, PT #### [facility] [address] [place] [address] Hoop Cutter: Romel Clemons MD MCHC (RBC) [Mass/Vol] 31.6 g/dL Normal 28.4-34.8 [facility] Comment on above: Performed By: #### B MARK FORD, PT #### [facility] [address] [place] [address] Hoop Cutter: Romel Clemons MD MCV (RBC) [Entitic vol] 95.3 fL Normal 82.6-102.9 [facility] Comment on above: Performed By: #### B MARK FORD, PT #### [facility] [employer] [address] [place] [address] 118[address] Hoop Cutter: Romel Clemons MD NRBC Automated 0.0 per 100 WBC Normal 0.0 [facility] Comment on above: Performed By: #### B MARK FORD, PT #### [facility] [employer] [address] [place] [address] Hoop Cutter: Romel Clemons MD Platelet mean volume (Bld) [Entitic vol] 9.4 fL Normal 8.1-13.5 [facility] Comment on above: Performed By: #### B MARK FORD, PT #### [address] [address] Hoop Cutter: Romel Clemons MD Platelets (Bld) [#/Vol] 340 10*3/uL Normal 138-453 [facility] Comment on above: Performed By: #### B MARK FORD, PT #### [address] [address] Hoop Cutter: Romel Clemons MD RBC (Bld) [#/Vol] 3.16 10*6/uL Low 3.95-5.11 [facility] Comment on above: Performed By: #### B MARK FORD, PT #### [address] [address] Hoop Cutter: Romel Clemons MD WBC (Bld) [#/Vol] 8.4 10*3/uL Normal 3.5-11.3 [facility] Comment on above: Performed By: #### B MARK FORD, PT #### [address] [address] Hoop Cutter: Romel Clemons MD Erythrocyte distribution width (RBC) [Ratio] 13.9 % 11.8 - 14.4 % [facility] Hematocrit (Bld) [Volume fraction] 30.1 % Low 36.3 - 47.1 % [facility] Hemoglobin (Bld) [Mass/Vol] 9.5 g/dL Low 11.9 - 15.1 g/dL [facility] Interpretation and review of laboratory results Abnormal [facility] MCH (RBC) [Entitic mass] 30.1 pg 25.2 - 33.5 pg [facility] MCHC (RBC) [Mass/Vol] 31.6 g/dL 28.4 - 34.8 g/dL [facility] MCV (RBC) [Entitic vol] 95.3 fL 82.6 - 102.9 fL [facility] Nucleated RBC/100 WBC (Bld) [Ratio] 0.0 % 0.0 per 100 WBC [facility] Platelet mean volume (Bld) [Entitic vol] 9.4 fL 8.1 - 13.5 fL [facility] Platelets (Bld) [#/Vol] 340 10*3/uL [facility] RBC (Bld) [#/Vol] 3.16 10*6/uL Low 3.95 - 5.1 1 m/uL [facility] WBC other (Bld) [#/Vol] 8.4 [facility] Heparin Anti-Xaon 04-28-2023 Heparin Anti-Xa <0.10 Normal [facility] Comment on above: Performed By: #### B MP, CDP, PT #### [employer] [facility] [place] [address] Hoop Cutter: Romel Clemons MD No Panel Informationon 04-28 [facility] PTon 04-28-2023 INR Coag (PPP) [Relative time] 2.7 {INR} Normal [facility] Comment on above: Result Comment: Therapeutic Range: Moderate Anticoagulant Intensity: INR = 2.0-3.0 High Anticoagulant Intensity: INR = 2.5-3.5 Performed By: #### B MP, CDP, PT #### [facility] [address] [place], [place] [phone] Hoop Cutter: Romel Clemons MD PT Coag (PPP) [Time] 28.6 s High 11.7-14.9 [facility] Comment on above: Performed By: #### B MP, CDP, PT #### [facility] [address] [place], [place] [phone] Hoop Cutter: Romel Clemons MD Protime-INRon 04-28-2023 INR Coag (PPP) [Relative time] 2.7 {INR} [facility] Comment on above: Therapeutic Range: Moderate Anticoagulant Intensity: INR = 2.0-3.0 High Anticoagulant Intensity: INR = 2.5-3.5 Interpretation and review of laboratory results Abnormal [facility] PT Coag (PPP) [Time] 28.6 s High [facility] Anti-Xa, Unfractionated Hepa rinon 04-27-2023 Anti-XA Unfrac Heparin <0.10 IU/L [facility] Anti-XA Unfrac Heparin <0.10 IU/L [facility] Anti-XA Unfrac Heparin 0.51 IU/L [facility] Anti-XA Unfrac Heparin 1.43 IU/L [facility] Basic Metabolic Panelon Anion gap [Moles/Vol] 10 mmol/L 9 - 17 mmol/L [facility] Calcium [Mass/Vol] 9.0 mg/dL 8.6 - 10. 4 mg/dL [facility] Chloride [Moles/Vol] 103 mmol/L 98 - 10 7 mmol/L [facility] CO2 [Moles/Vol] 25 mmol/L 20 - 31 mmol/L [facility] Creatinine [Mass/Vol] 0.5 mg/dL 0.5 - 0.9 mg/dL [facility] GFR/1.73 sq M.predicted MDRD (S/P/Bld) [Vol rate/Area] - PINF [facility] Comment on above: These results are not intended for use in patients <18 years of age. eGFR results are calculated without a race factor using the 2020 CKD-EPI equation. Careful clinical correlation is recommended, particularly when comparing to results calculated using previous equations. The CKD-EPI equation is less accurate in patients with extremes of muscle mass, extra-renal metabolism of creatine, excessive creatine ingestion, or following therapy that affects renal tubular secretion. Glucose [Mass/Vol] 132 mg/dL High 70 - 99 mg/dL [facility] Interpretation and review of laboratory results Abnormal [facility] Potassium [Moles/Vol] 4.4 mmol/L 3.7 - 5.3 mmol/L [facility] Sodium [Moles/Vol] 138 mmol/L 135 - 144 mmol/L [facility] Urea nitrogen [Mass/Vol] 12 mg/dL 6 - 20 mg/dL [facility] Basic Metabolic Profon 04-27 Anion gap [Moles/Vol] 10 mmol/L Normal 9-17 [facility] Comment on above: Performed By: #### H EPXA, PT #### [facility] [address] [place] [address] Hoop Cutter: Romel Clemons MD Calcium [Mass/Vol] 9.0 mg/dL Normal 8.6-10.4 [facility] Comment on above: Performed By: #### H EPXA, PT #### [facility] [address] [place], [place] [phone] Hoop Cutter: Romel Clemons MD Chloride [Moles/Vol] 103 mmol/L Normal 98-107 [facility] Comment on above: Performed By: #### H EPXA, PT #### [facility] [address] [place] [address] [phone] Hoop Cutter: Romel Clemons MD CO2 [Moles/Vol] 25 mmol/L Normal 20-31 [facility] Comment on above: Performed By: #### H EPXA, PT #### [facility] [address] [place] [address] Hoop Cutter: Romel Clemons MD Creatinine [Mass/Vol] 0.5 mg/dL Normal 0.5-0.9 [facility] Comment on above: Performed By: #### H EPXA, PT #### [facility] [employer] [address] [place] [address] Hoop Cutter: Romel Clemons MD GFR/1.73 sq M.predicted among non-blacks MDRD (S/P/Bld) [Vol rate/Area] mL/min/{1.73_m2} Normal >60 [facility] Comment on above: Result Comment: These results are not intended for use in patients <18 years of age. eGFR results are calculated without a race factor using the 2020 CKD-EPI equation. Careful clinical correlation is recommended, particularly when comparing to results calculated using previous equations. The CKD-EPI equation is less accurate in patients with extremes of muscle mass, extra-renal metabolism of creatine, excessive creatine ingestion, or following therapy that affects renal tubular secretion. Performed By: #### H EPXA, PT #### [facility] [address] [place] [address] Hoop Cutter: Romel Clemons MD Glucose [Mass/Vol] 132 mg/dL High 70-99 [facility] Comment on above: Performed By: #### H EPXA, PT #### [facility] [address] [place] [address] Hoop Cutter: Romel Clemons MD Potassium [Moles/Vol] 4.4 mmol/L Normal 3.7-5.3 [facility] Comment on above: Performed By: #### H EPXA, PT #### [facility] [employer] [address] [place] [address] Hoop Cutter: Romel Clemons MD Sodium [Moles/Vol] 138 mmol/L Normal 135-144 [facility] Comment on above: Performed By: #### H EPXA, PT #### [address] [address] Hoop Cutter: Romel Clemons MD Urea nitrogen [Mass/Vol] 12 mg/dL Normal 6-20 [facility] Comment on above: Performed By: #### H EPXA, PT #### [address] [address] Hoop Cutter: Romel Clemons MD Comp Metabolic Profon 2023 Albumin [Mass/Vol] 3.3 g/dL Low 3.5-5.2 [facility] Comment on above: Performed By: #### C P #### [address] [address] Hoop Cutter: Romel Clemons MD Albumin/Glob Ratio 1.1 Normal 1.0-2.5 [facility] Comment on above: Performed By: #### C P #### [address] [address] Hoop Cutter: Romel Clemons MD Alkaline Phos 108 U/L High 35-104 [facility] Comment on above: Performed By: #### C P #### [address] [address] Hoop Cutter: Romel Clemons MD ALT [Catalytic activity/Vol] 19 U/L Normal 5-33 [facility] Comment on above: Performed By: #### C P #### [address] [address] Hoop Cutter: Romel Clemons MD Anion gap [Moles/Vol] 9 mmol/L Normal 9-17 [facility] Comment on above: Performed By: #### C P #### [address] [address] Hoop Cutter: Romel Clemons MD AST [Catalytic activity/Vol] 19 U/L Normal <32 [facility] Comment on above: Performed By: #### C P #### [address] [address] Hoop Cutter: Romel Clemons MD Bilirubin [Mass/Vol] 0.2 mg/dL Low 0.3-1.2 [facility] Comment on above: Performed By: #### C P #### [address] [address] Hoop Cutter: Romel Clemons MD Calcium [Mass/Vol] 9.0 mg/dL Normal 8.6-10.4 [facility] Comment on above: Performed By: #### C P #### [address] [address] Hoop Cutter: Romel Clemons MD Chloride [Moles/Vol] 105 mmol/L Normal 98-107 [facility] Comment on above: Performed By: #### C P #### [address] [address] Hoop Cutter: Romel Clemons MD CO2 [Moles/Vol] 26 mmol/L Normal 20-31 [facility] Comment on above: Performed By: #### C P #### [address] [address] Hoop Cutter: Romel Clemons MD Creatinine [Mass/Vol] 0.7 mg/dL Normal 0.5-0.9 [facility] Comment on above: Performed By: #### C P #### [address] [address] Hoop Cutter: Romel Clemons MD GFR/1.73 sq M.predicted among non-blacks MDRD (S/P/Bld) [Vol rate/Area] mL/min/{1.73_m2} Normal >60 [facility] Comment on above: Result Comment: These results are not intended for use in patients <18 years of age. eGFR results are calculated without a race factor using the 2020 CKD-EPI equation. Careful clinical correlation is recommended, particularly when comparing to results calculated using previous equations. The CKD-EPI equation is less accurate in patients with extremes of muscle mass, extra-renal metabolism of creatine, excessive creatine ingestion, or following therapy that affects renal tubular secretion. Performed By: #### C P #### [address] [address] Hoop Cutter: Romel Clemons MD Glucose [Mass/Vol] 115 mg/dL High 70-99 [facility] Comment on above: Performed By: #### C P #### [address] [address] Hoop Cutter: Romel Clemons MD Potassium [Moles/Vol] 3.9 mmol/L Normal 3.7-5.3 [facility] Comment on above: Performed By: #### C P #### [address] [address] Hoop Cutter: Romel Clemons MD Protein [Mass/Vol] 6.4 g/dL Normal 6.4-8.3 [facility] Comment on above: Performed By: #### C P #### [address] [address] Hoop Cutter: Romel Clemons MD Sodium [Moles/Vol] 140 mmol/L Normal 135-144 [facility] Comment on above: Performed By: #### C P #### [address] [address] Hoop Cutter: Romel Clemons MD Urea nitrogen [Mass/Vol] 12 mg/dL Normal 6-20 [facility] Comment on above: Performed By: #### C P #### [address] [address] Hoop Cutter: Romel Clemons MD Comprehensive Metabolic Pane veronique 04-27-2023 Albumin [Mass/Vol] 3.3 g/dL Low 3.5 - 5.2 g/dL [facility] Albumin/Globulin [Mass ratio] 1.1 {ratio} 1.0 - 2.5 [facility] ALP [Catalytic activity/Vol] 108 U/L High 35 - 104 U/L [facility] ALT [Catalytic activity/Vol] 19 U/L 5 - 33 U/L [facility] Anion gap [Moles/Vol] 9 mmol/L 9 - 17 mmol/L [facility] AST [Catalytic activity/Vol] 19 U/L NINF - 32 U/L [facility] Bilirubin [Mass/Vol] 0.2 mg/dL Low 0.3 - 1 .2 mg/dL [facility] Calcium [Mass/Vol] 9.0 mg/dL 8.6 - 10. 4 mg/dL [facility] Chloride [Moles/Vol] 105 mmol/L 98 - 10 7 mmol/L [facility] CO2 [Moles/Vol] 26 mmol/L 20 - 31 mmol/L [facility] Creatinine [Mass/Vol] 0.7 mg/dL 0.5 - 0.9 mg/dL [facility] GFR/1.73 sq M.predicted MDRD (S/P/Bld) [Vol rate/Area] - PINF [facility] Comment on above: These results are not intended for use in patients <18 years of age. eGFR results are calculated without a race factor using the 2020 CKD-EPI equation. Careful clinical correlation is recommended, particularly when comparing to results calculated using previous equations. The CKD-EPI equation is less accurate in patients with extremes of muscle mass, extra-renal metabolism of creatine, excessive creatine ingestion, or following therapy that affects renal tubular secretion. Glucose [Mass/Vol] 115 mg/dL High 70 - 99 mg/dL [facility] Interpretation and review of laboratory results Abnormal [facility] Potassium [Moles/Vol] 3.9 mmol/L 3.7 - 5.3 mmol/L [facility] Protein [Mass/Vol] 6.4 g/dL 6.4 - 8.3 g/dL [facility] Sodium [Moles/Vol] 140 mmol/L 135 - 144 mmol/L [facility] Urea nitrogen [Mass/Vol] 12 mg/dL 6 - 20 mg/dL [facility] Heparin Anti-Xaon 04-27-2023 Heparin Anti-Xa <0.10 Normal [facility] Comment on above: Performed By: #### B MARK FORD, PT #### [facility] [address] [place] [address] Hoop Cutter: Romel Clemons MD Heparin Anti-Xa <0.10 [facility] Comment on above: Performed By: #### H EPXA #### [facility] [address] [place] [address] Hoop Cutter: Romel Clemons MD Heparin Anti-Xa 0.51 IU/L [facility] Comment on above: Performed By: #### H EPXA, PT #### [facility] [address] [place] [address] Hoop Cutter: Romel Clemons MD Heparin Anti-Xa 1.43 IU/L [facility] Comment on above: Performed By: #### B MARK FORD, PT #### [facility] [address] [place] [address] Hoop Cutter: Romel Clemons MD No Panel Informationon 04-27 [facility] PTon 04-27-2023 INR Coag (PPP) [Relative time] 2.4 {INR} Normal [facility] Comment on above: Result Comment: Therapeutic Range: Moderate Anticoagulant Intensity: INR = 2.0-3.0 High Anticoagulant Intensity: INR = 2.5-3.5 Performed By: #### H EPXA, PT #### [facility] [address] [place] [phone] Hoop Cutter: Romel Clemons MD PT Coag (PPP) [Time] 26.0 s High 11.7-14.9 [facility] Comment on above: Performed By: #### H EPXA, PT #### [facility] [address] [place] [address] Hoop Cutter: Romel Clemons MD Protime-INRon 04-27-2023 INR Coag (PPP) [Relative time] 2.4 {INR} [facility] Comment on above: Therapeutic Range: Moderate Anticoagulant Intensity: INR = 2.0-3.0 High Anticoagulant Intensity: INR = 2.5-3.5 Interpretation and review of laboratory results Abnormal [facility] PT Coag (PPP) [Time] 26.0 s High [facility] Vascular duplex lower extrem ity arteries left with ABIon 04-27-2023 Body surface area Derived from formula 2.29 m2 [facility] Left LYNDON mid PSV 87.5 cm/s [facility] Left SILK WEAVER prox PSV 116.0 cm/s [facility] Left SILK WEAVER tj ratio 0.85 [facility] Left EIA dist PSV 137.0 cm/s [facility] Left peroneal mid PSV 0.0 cm/s [facility] Left PFA prox PSV 41.5 cm/s [facility] Left Pop A dist PSV 51.6 cm/s [facility] Left Pop A prox PSV 94.1 cm/s [facility] Left Pop A prox tj ratio 1.25 [facility] Left CASE MANAGERS mid PSV 98.8 cm/s [facility] Left SFA dist PSV 75.3 cm/s [facility] Left SFA dist tj ratio 0.66 [facility] Left SFA mid PSV 114.0 cm/s [facility] Left SFA mid tj ratio 0.97 [facility] Left SFA prox PSV 118.0 cm/s [facility] Left SFA prox tj ratio 1.02 [facility] Left: Normal arterial examination with no evidence of significant obstruction. The DVT that was previously seen on the first is of course still there. Left Lower Arterial Common Femoral Artery: Patent. Distal Common Femoral Artery: Multiphasic (normal) Doppler waveforms. Profunda Artery: Patent and multiphasic (normal) Doppler waveforms. . Proximal Superficial Femoral Artery: Patent and multiphasic (normal) Doppler waveforms. Middle Superficial Femoral Artery: Patent and multiphasic (normal) Doppler waveforms. Distal Superficial Femoral Artery: Patent and multiphasic (normal) Doppler waveforms. Proximal Popliteal Artery: Patent and multiphasic (normal) Doppler waveforms. Distal Popliteal Artery: Patent and multiphasic (normal) Doppler waveforms. Anterior Tibial Artery: Patent and multiphasic (normal) Doppler waveforms. Tibial/Peroneal Trunk: Patent and multiphasic (normal) Doppler waveforms. Posterior Tibial Artery: Patent and multiphasic (normal) Doppler waveforms. Peroneal Artery: Absent Doppler waveforms. Incidental finding of partially compressible proximal femoral vein and non compressible mid to distal femoral, popliteal, tibioperoneal trunk, peroneal and posterior tibial veins with absent spectral Doppler signals. Abdominal Aorta Left External Iliac Artery: Patent. Comparison Study The exam was compared to the study performed on 04/22/2023. Acute deep vein thrombosis in the left popliteal vein. Acute deep vein thrombosis in the left tibioperoneal trunk. [employer] Details A chung scale, color Doppler imaging and spectral Doppler analysis ultrasound was performed. During the study longitudinal and transverse views were obtained. Pulsed wave doppler was performed. [facility] CV CPACS [facility] [place]. com. cn [employer] Vascular lower arterial comp lete physiologic Doppler at reston 04-27-2023 Body surface area Derived from formula 2.29 m2 [facility] Rayn Left ESTEBAN 1.24 [facility] Rayn Left ankle BP 173 mmHg [facility] Rayn Left arm BP 139 mmHg [facility] Rayn Left dorsalis pedis BP 173 mmHg [facility] Rayn Left posterior tibial 173 mmHg [facility] Rayn Left TBI 0.91 [facility] Left toe pressure 127 mmHg [facility] Right ESTEBAN 1.30 [facility] Right ankle BP 175 mmHg [facility] Right dorsalis pedis BP 181 mmHg [facility] Right posterior tibial 175 mmHg [facility] Right TBI 1.27 [facility] Right toe pressure 177 mmHg [facility] Right side findings: Resting ESTEBAN is 1.30. Resting TBI is 1.27. Normal range. Left side findings: Resting ESTEBAN is 1.24. Resting TBI is 0.91. Normal range. [employer] Details Pulsed volume recording (PVR) and photo plethysmography was performed. [facility] Radiology Study observation (narrative) [facility] APTTon 04-26-2023 aPTT Coag (Bld) [Time] 43.5 s High 23.0-36.5 [facility] Comment on above: Result Comment: IV Heparin Therapy Range: 66.0-92.0 sec Performed By: #### H EPXA, PT #### [facility] [employer] [facility] [place] [phone] Hoop Cutter: Romel Clemons MD aPTT Coag (Bld) [Time] 43.5 s High [facility] Comment on above: IV Heparin Therapy Range: 66.0-92.0 sec Interpretation and review of laboratory results Abnormal [facility] Anti-Xa, Unfractionated Hepa rinon 04-26-2023 Anti-XA Unfrac Heparin <0.10 IU/L [facility] Basic Metabolic Panelon Anion gap [Moles/Vol] 10 mmol/L 9 - 17 mmol/L [facility] Calcium [Mass/Vol] 8.7 mg/dL 8.6 - 10. 4 mg/dL [facility] Chloride [Moles/Vol] 101 mmol/L 98 - 10 7 mmol/L [facility] CO2 [Moles/Vol] 26 mmol/L 20 - 31 mmol/L [facility] Creatinine [Mass/Vol] 0.5 mg/dL 0.5 - 0.9 mg/dL [facility] GFR/1.73 sq M.predicted MDRD (S/P/Bld) [Vol rate/Area] - PINF [facility] Comment on above: These results are not intended for use in patients <18 years of age. eGFR results are calculated without a race factor using the 2020 CKD-EPI equation. Careful clinical correlation is recommended, particularly when comparing to results calculated using previous equations. The CKD-EPI equation is less accurate in patients with extremes of muscle mass, extra-renal metabolism of creatine, excessive creatine ingestion, or following therapy that affects renal tubular secretion. Glucose [Mass/Vol] 131 mg/dL High 70 - 99 mg/dL [facility] Interpretation and review of laboratory results Abnormal [facility] Potassium [Moles/Vol] 4.2 mmol/L 3.7 - 5.3 mmol/L [facility] Sodium [Moles/Vol] 137 mmol/L 135 - 144 mmol/L [facility] Urea nitrogen [Mass/Vol] 10 mg/dL 6 - 20 mg/dL [facility] Basic Metabolic Profon 04-26 Anion gap [Moles/Vol] 10 mmol/L Normal 9-17 [facility] Comment on above: Performed By: #### B MARK FORD, PT #### [facility] [employer] [address] [place] [address] Hoop Cutter: Romel Clemons MD Calcium [Mass/Vol] 8.7 mg/dL Normal 8.6-10.4 [facility] Comment on above: Performed By: #### B MARK FORD, PT #### [facility] [address] [place] [address] Hoop Cutter: Romel Clemons MD Chloride [Moles/Vol] 101 mmol/L Normal 98-107 [facility] Comment on above: Performed By: #### B MARK FORD, PT #### [facility] [address] [place] [address] Hoop Cutter: Romel Clemons MD CO2 [Moles/Vol] 26 mmol/L Normal 20-31 [facility] Comment on above: Performed By: #### B MARK FORD, PT #### [facility] [address] [place] [address] Hoop Cutter: Romel Clemons MD Creatinine [Mass/Vol] 0.5 mg/dL Normal 0.5-0.9 [facility] Comment on above: Performed By: #### B MARK FORD, PT #### [facility] [address] [place] [address] Hoop Cutter: Romel Clemons MD GFR/1.73 sq M.predicted among non-blacks MDRD (S/P/Bld) [Vol rate/Area] mL/min/{1.73_m2} Normal >60 [facility] Comment on above: Result Comment: These results are not intended for use in patients <18 years of age. eGFR results are calculated without a race factor using the 2020 CKD-EPI equation. Careful clinical correlation is recommended, particularly when comparing to results calculated using previous equations. The CKD-EPI equation is less accurate in patients with extremes of muscle mass, extra-renal metabolism of creatine, excessive creatine ingestion, or following therapy that affects renal tubular secretion. Performed By: #### B MARK FORD, PT #### [facility] [employer] [address] [place] [phone] Hoop Cutter: Romel Clemons MD Glucose [Mass/Vol] 131 mg/dL High 70-99 [facility] Comment on above: Performed By: #### B MARK FORD, PT #### [facility] [address] [place] [phone] Hoop Cutter: Romel Clemons MD Potassium [Moles/Vol] 4.2 mmol/L Normal 3.7-5.3 [facility] Comment on above: Performed By: #### B MARK FORD, PT #### [employer] [address] [place] [phone] Hoop Cutter: Romel Clemons MD Sodium [Moles/Vol] 137 mmol/L Normal 135-144 [facility] Comment on above: Performed By: #### B MARK FORD, PT #### [employer] [address] [place] [address] [phone] Hoop Cutter: Romel Clemons MD Urea nitrogen [Mass/Vol] 10 mg/dL Normal 6-20 [facility] Comment on above: Performed By: #### B MP, CDP, PT #### [employer] [address] [place] [phone] Hoop Cutter: Romel Clemons MD Brain Natri. Peptideon 04-26 Natriuretic peptide B (Bld) [Mass/Vol] 6197 pg/mL High <300 [facility] Comment on above: Result Comment: An age-independent cutoff point of 300 pg/ml has a 98% negative predictive value excluding acute heart failure. Performed By: #### H EPXA, PT #### [employer] [address] [place] [address] [phone] Hoop Cutter: Romel Clemons MD Brain Natriuretic Peptideon 04-26-2023 Interpretation and review of laboratory results Abnormal [facility] [employer] Natriuretic peptide B (Bld) [Mass/Vol] 6197 pg/mL High NINF - 300 pg/mL [facility] Comment on above: An age-independent cutoff point of 300 pg/ml has a 98% negative predictive value excluding acute heart failure. [facility] [employer] CBCon 04-26-2023 Erythrocyte distribution width (RBC) [Ratio] 13.8 % Normal 11.8-14.4 [facility] Comment on above: Performed By: #### H EPXA, PT #### [employer] [address] [place] [phone] Hoop Cutter: Romel Clemons MD Hematocrit (Bld) [Volume fraction] 34.0 % Low 36.3-47.1 [facility] Comment on above: Performed By: #### H EPXA, PT #### [employer] [address] [place] [phone] Hoop Cutter: Romel Clemons MD Hemoglobin (Bld) [Mass/Vol] 10.3 g/dL Low 11.9-15.1 [facility] Comment on above: Performed By: #### H EPXA, PT #### [employer] [address] [place] [phone] Hoop Cutter: Romel Clemons MD MCH (RBC) [Entitic mass] 30.0 pg Normal 25.2-33.5 [facility] Comment on above: Performed By: #### H EPXA, PT #### [address] [address] Hoop Cutter: Romel Clemons MD MCHC (RBC) [Mass/Vol] 30.3 g/dL Normal 28.4-34.8 [facility] Comment on above: Performed By: #### H EPXA, PT #### [address] [address] Hoop Cutter: Romel Clemons MD MCV (RBC) [Entitic vol] 99.1 fL Normal 82.6-102.9 [facility] Comment on above: Performed By: #### H EPXA, PT #### [address] [address] Hoop Cutter: Romel Clemons MD NRBC Automated 0.0 per 100 WBC Normal 0.0 [facility] Comment on above: Performed By: #### H EPXA, PT #### [address] [address] Hoop Cutter: Romel Clemons MD Platelet mean volume (Bld) [Entitic vol] 9.3 fL Normal 8.1-13.5 [facility] Comment on above: Performed By: #### H EPXA, PT #### [address] [phone] Hoop Cutter: Romel Clemons MD Platelets (Bld) [#/Vol] 328 10*3/uL Normal 138-453 [facility] Comment on above: Performed By: #### H EPXA, PT #### [address] [address] Hoop Cutter: Romel Clemons MD RBC (Bld) [#/Vol] 3.43 10*6/uL Low 3.95-5.11 [facility] Comment on above: Performed By: #### H EPXA, PT #### [facility] [address] [place], [place] [phone] Hoop Cutter: Romel Clemons MD WBC (Bld) [#/Vol] 8.9 10*3/uL Normal 3.5-11.3 [facility] Comment on above: Performed By: #### H EPXA, PT #### [facility] [address] [place] [address] Hoop Cutter: Romel Clemons MD Erythrocyte distribution width (RBC) [Ratio] 13.8 % 11.8 - 14.4 % [facility] Hematocrit (Bld) [Volume fraction] 34.0 % Low 36.3 - 47.1 % [facility] Hemoglobin (Bld) [Mass/Vol] 10.3 g/dL Low 11.9 - 15.1 g/dL [facility] Interpretation and review of laboratory results Abnormal [facility] MCH (RBC) [Entitic mass] 30.0 pg 25.2 - 33.5 pg [facility] MCHC (RBC) [Mass/Vol] 30.3 g/dL 28.4 - 34.8 g/dL [facility] MCV (RBC) [Entitic vol] 99.1 fL 82.6 - 102.9 fL [facility] Nucleated RBC/100 WBC (Bld) [Ratio] 0.0 % 0.0 per 100 WBC [facility] Platelet mean volume (Bld) [Entitic vol] 9.3 fL 8.1 - 13.5 fL [facility] Platelets (Bld) [#/Vol] 328 10*3/uL [facility] RBC (Bld) [#/Vol] 3.43 10*6/uL Low 3.95 - 5.1 1 m/uL [facility] WBC other (Bld) [#/Vol] 8.9 [facility] CBC with Auto Differentialon 04-26-2023 Basophils (Bld) [#/Vol] [facility] Basophils/100 WBC (Bld) 0 % 0 - 2 % [facility] Eosinophils (Bld) [#/Vol] [facility] Eosinophils/100 WBC (Bld) 0 % Low 1 - 4 % [facility] Erythrocyte distribution width (RBC) [Ratio] 13.7 % 11.8 - 14.4 % [facility] Hematocrit (Bld) [Volume fraction] 31.3 % Low 36.3 - 47.1 % [facility] Hemoglobin (Bld) [Mass/Vol] 10.0 g/dL Low 11.9 - 15.1 g/dL [facility] Immature granulocytes (Bld) [#/Vol] 0.03 10*3/uL [facility] Immature granulocytes/100 WBC (Bld) 0 % 0 [facility] Interpretation and review of laboratory results Abnormal [facility] Lymphocytes/100 WBC (Bld) 13 % Low 24 - 43 % [facility] Lymphocytes/100 WBC (Bld) 1.01 % Low [facility] MCH (RBC) [Entitic mass] 30.5 pg 25.2 - 33.5 pg [facility] MCHC (RBC) [Mass/Vol] 31.9 g/dL 28.4 - 34.8 g/dL [facility] MCV (RBC) [Entitic vol] 95.4 fL 82.6 - 102.9 fL [facility] Monocytes/100 WBC (Bld) 9 % 3 - 12 % [facility] Monocytes/100 WBC (Bld) 0.68 % [facility] Neutrophils/100 WBC (Bld) 78 % High 36 - 65 % [facility] Nucleated RBC/100 WBC (Bld) [Ratio] 0.0 % 0.0 per 100 WBC [facility] Platelet mean volume (Bld) [Entitic vol] 9.2 fL 8.1 - 13.5 fL [facility] Platelets (Bld) [#/Vol] 321 10*3/uL [facility] RBC (Bld) [#/Vol] 3.28 10*6/uL Low 3.95 - 5.1 1 m/uL [facility] Segmented neutrophils/100 WBC (Bld) 6.13 % [facility] WBC other (Bld) [#/Vol] 7.9 [facility] CBC with Diffon 04-26-2023 Abs. Basophil <0.03 Normal 0.00-0.20 [facility] Comment on above: Performed By: #### B MARK FORD, PT #### [facility] [employer] [address] [place] [phone] Hoop Cutter: Romel Clemons MD Abs. Eosinophil <0.03 Normal 0.00-0.44 [facility] Comment on above: Performed By: #### B MARK FORD, PT #### [facility] [employer] [address] [place] [phone] Hoop Cutter: Romel Clemons MD Abs.Imm.Granulocyte 0.03 k/uL Normal 0.00-0.30 [facility] Comment on above: Performed By: #### B MARK FORD, PT #### [facility] [employer] [address] [place] [phone] Hoop Cutter: Romel Clemons MD Abs.Neutrophil (Seg) 6.13 k/uL Normal 1.50-8.10 [facility] Comment on above: Performed By: #### B MARK FORD, PT #### [facility] [address] [place] [phone] Hoop Cutter: Romel Clemons MD Basophils/100 WBC (Bld) 0 % Normal 0-2 [facility] Comment on above: Performed By: #### B MARK FORD, PT #### [facility] [address] [place] [phone] Hoop Cutter: Romel Clemons MD Eosinophils/100 WBC (Bld) 0 % Low 1-4 [facility] Comment on above: Performed By: #### B MARK FORD, PT #### [facility] [employer] [address] [place] [phone] Hoop Cutter: Romel Clemons MD Erythrocyte distribution width (RBC) [Ratio] 13.7 % Normal 11.8-14.4 [facility] Comment on above: Performed By: #### B LOGAN CDP, PT #### [facility] [employer] [address] [place] [phone] Hoop Cutter: Romel Clemons MD Hematocrit (Bld) [Volume fraction] 31.3 % Low 36.3-47.1 [facility] Comment on above: Performed By: #### B MARK FORD, PT #### [facility] [address] [place] [address] Hoop Cutter: Romel Clemons MD Hemoglobin (Bld) [Mass/Vol] 10.0 g/dL Low 11.9-15.1 [facility] Comment on above: Performed By: #### B MARK FORD, PT #### [facility] [address] [place] [phone] Hoop Cutter: Romel Clemons MD Immature granulocytes/100 WBC (Bld) 0 % Normal 0 [facility] Comment on above: Performed By: #### B MARK FORD, PT #### [facility] [address] [place] [phone] Hoop Cutter: Romel Clemons MD Lymphocytes (Bld) [#/Vol] 1.01 10*3/uL Low 1.10-3.70 [facility] Comment on above: Performed By: #### B MARK FORD, PT #### [employer] [address] [place] [phone] Hoop Cutter: Romel Clemons MD Lymphocytes/100 WBC (Bld) 13 % Low 24-43 [facility] Comment on above: Performed By: #### B LOGAN CDP, PT #### [address] [address] Hoop Cutter: Romel Clemons MD MCH (RBC) [Entitic mass] 30.5 pg Normal 25.2-33.5 [facility] Comment on above: Performed By: #### B LOGAN CDP, PT #### [address] [address] Hoop Cutter: Romel Clemons MD MCHC (RBC) [Mass/Vol] 31.9 g/dL Normal 28.4-34.8 [facility] Comment on above: Performed By: #### B LOGAN, CDP, PT #### [address] [address] Hoop Cutter: Romel Clemons MD MCV (RBC) [Entitic vol] 95.4 fL Normal 82.6-102.9 [facility] Comment on above: Performed By: #### B LOGAN, CDP, PT #### [address] [address] Hoop Cutter: Romel Clemons MD Monocytes (Bld) [#/Vol] 0.68 10*3/uL Normal 0.10-1.20 [facility] Comment on above: Performed By: #### B LOGAN CDP, PT #### [address] [address] Hoop Cutter: Romel Clemons MD Monocytes/100 WBC (Bld) 9 % Normal 3-12 [facility] Comment on above: Performed By: #### B MP, CDP, PT #### [address] [address] Hoop Cutter: Romel Clemons MD Neutrophil (Seg) 78 % High 36-65 [facility] Comment on above: Performed By: #### B MP, CDP, PT #### [facility] [employer] [address] [place] [phone] Hoop Cutter: Romel Clemons MD NRBC Automated 0.0 per 100 WBC Normal 0.0 [facility] Comment on above: Performed By: #### B MARK FORD, PT #### [facility] [employer] [address] [place] [phone] Hoop Cutter: Romel Clemons MD Platelet mean volume (Bld) [Entitic vol] 9.2 fL Normal 8.1-13.5 [facility] Comment on above: Performed By: #### B MP, CDP, PT #### [facility] [address] [place] [phone] Hoop Cutter: Romel Clemons MD Platelets (Bld) [#/Vol] 321 10*3/uL Normal 138-453 [facility] Comment on above: Performed By: #### B MARK FORD, PT #### [facility] [employer] [address] [place] [phone] Hoop Cutter: Romel Clemons MD RBC (Bld) [#/Vol] 3.28 10*6/uL Low 3.95-5.11 [facility] Comment on above: Performed By: #### B LOGAN CDP, PT #### [facility] [address] [place] [phone] Hoop Cutter: Romel Clemons MD WBC (Bld) [#/Vol] 7.9 10*3/uL Normal 3.5-11.3 [facility] Comment on above: Performed By: #### B LOGAN CDP, PT #### [facility] [employer] [address] [place] [phone] Hoop Cutter: Romel Clemons MD D-Dimer Teston 04-26-2023 D-Dimer Test >20.00 High 0.00-0.57 [facility] Comment on above: Result Comment: When combined with a low clinical probability, a D dimer value of <0.50 ug/mL FEU is considered negative for DVT and PE (negative predictive value of 98%, sensitivity of 97%). If this test is not being used to help rule out DVT and PE, then the following reference range should be utilized: 0.00 - 0.57 ug/mL FEU. The D-Dimer assay is intended for use as an aid in the diagnosis of venous thromboembolism (DVT and PE) and the results should be interpreted in conjunction with the patient's medical history, clinical presentation, and other findings. Elevated levels of D-dimer activity can be seen in any state of coagulation activation and is not recommended in patients with therapeutic dose anticoagulant therapy for >24 hours, fibrinolytic therapy within the previous 7 days, trauma or surgery within the previous 4 weeks, disseminated malignancies, aortic aneurysm, sepsis, severe infections, pneumonia, severe skin infections, liver cirrhosis, advanced age, coronary disease, diabetes, and . A very low percentage of patients with DVT may yield D-dimer results below the cutoff of 0.5 ug/mL FEU. This is known to be more prevalent in patients with distal DVT. Performed By: #### H EPXA, PT #### [employer] [facility] [place] [address] Hoop Cutter: Romel Clemons MD D-Dimer, Quantitativeon Fibrin D-dimer FEU (PPP) [Mass/Vol] [facility] Comment on above: When combined with a low clinical probability, a D dimer value of <0.50 ug/mL FEU is considered negative for DVT and PE (negative predictive value of 98%, sensitivity of 97%). If this test is not being used to help rule out DVT and PE, then the following reference range should be utilized: 0.00 - 0.57 ug/mL FEU. The D-Dimer assay is intended for use as an aid in the diagnosis of venous thromboembolism (DVT and PE) and the results should be interpreted in conjunction with the patient's medical history, clinical presentation, and other findings. Elevated levels of D-dimer activity can be seen in any state of coagulation activation and is not recommended in patients with therapeutic dose anticoagulant therapy for >24 hours, fibrinolytic therapy within the previous 7 days, trauma or surgery within the previous 4 weeks, disseminated malignancies, aortic aneurysm, sepsis, severe infections, pneumonia, severe skin infections, liver cirrhosis, advanced age, coronary disease, diabetes, and . A very low percentage of patients with DVT may yield D-dimer results below the cutoff of 0.5 ug/mL FEU. This is known to be more prevalent in patients with distal DVT. Interpretation and review of laboratory results Abnormal [facility] EKG 12 LeadOrdered By: Wayne Reynolds on 04-26-2023 Atrial Rate 91 BPM [employer] Work Phone: P Henefer 9 degrees [employer] Work Phone: P-R Interval 126 ms [employer] Work Phone: Q-T Interval 366 ms [employer] Work Phone: QRS Duration 88 ms [employer]most Phone: QTc Calculation (Bazett) 450 ms [employer] Work Phone: R Henefer 24 degrees [employer] Work Phone: T Henefer 13 degrees [employer] Work Phone: Ventricular Rate 91 BPM [employer] Work Phone: [employer] Work Phone: EKG 12 Leadon 04-26-2023 Normal sinus rhythm Nonspecific T wave abnormality Abnormal ECG When compared with ECG of 22-APR-2023 05:48, No significant change was found [facility] Wayne Villa MD - 04/26/2023 Normal sinus rhythm Nonspecific T wave abnormality Abnormal ECG When compared with ECG of 22-APR-2023 05:48, No significant change was found [employer] Heparin Anti-Xaon 04-26-2023 Heparin Anti-Xa <0.10 Normal [facility] Comment on above: Performed By: #### H EPXA, PT #### [facility] [employer] [address] [place] [phone] Hoop Cutter: Romel Clemons MD Microscopic Urinalysison Bacteria LM Ql (Urine sed) None None [facility] Casts LM.LPF (Urine sed) [#/Area] 0 TO 2 HYALINE Reference range defined for non-centrifuged specimen. [facility] Epithelial cells LM.HPF (Urine sed) [#/Area] 2 TO 5 [facility] RBC LM.HPF (Urine sed) [#/Area] 2 TO 5 [facility] Comment on above: Reference range defi doris for non-centrifuged specimen. WBC LM.HPF (Urine sed) [#/Area] 2 TO 5 [facility] PTon 04-26-2023 INR Coag (PPP) [Relative time] 1.9 {INR} Normal [facility] Comment on above: Therapeutic Range: Moderate Anticoagulant Intensity: INR = 2.0-3.0 High Anticoagulant Intensity: INR = 2.5-3.5 Result Comment: Therapeutic Range: Moderate Anticoagulant Intensity: INR = 2.0-3.0 High Anticoagulant Intensity: INR = 2.5-3.5 Performed By: #### B LOGAN, CDP, PT #### [employer] [address] [place] [phone] Hoop Cutter: Romel Clemons MD PT Coag (PPP) [Time] 21.5 s High 11.7-14.9 [facility] Comment on above: Performed By: #### B LOGAN, CDP, PT #### [employer] [address] [place] [phone] Hoop Cutter: Romel Clemons MD Portable XR Chest AP single viewon 04-26-2023 Left basilar atelectasis/scarring. No significant pleural effusion or evidence of pulmonary edema. [facility] RIS CONSOLIDATED EXAMINATION: ONE XRAY VIEW OF THE CHEST 04/26/2023 3:35 pm COMPARISON: None. HISTORY: Concern for fluid overload. FINDINGS: Patient is mildly rotated. Cardiomediastinal silhouette at the upper limit of normal. Left hemidiaphragm is mildly elevated. Left basilar atelectasis/scarring. Right lung is relatively clear. No significant pleural effusion. No pneumothorax. [facility] RIS CONSOLIDATED Efren Morel R , MD - 04/26/2023 EXAMINATION: ONE XRAY VIEW OF THE CHEST 04/26/2023 3:35 pm COMPARISON: None. HISTORY: Concern for fluid overload. FINDINGS: Patient is mildly rotated. Cardiomediastinal silhouette at the upper limit of normal. Left hemidiaphragm is mildly elevated. Left basilar atelectasis/scarring. Right lung is relatively clear. No significant pleural effusion. No pneumothorax. IMPRESSION: Left basilar atelectasis/scarring. No significant pleural effusion or evidence of pulmonary edema. [facility] Radiology Study observation (narrative) [facility] [employer] Portable XR Chest AP single viewOrdered By: Efren Morel on 04-26-2023 [facility] [employer] Work Phone: Procalcitoninon 04-26-2023 Procalcitonin 0.14 ng/mL High <0.09 [facility] Comment on above: Result Comment: Suspected Sepsis: <0.50 ng/mL Low likelihood of sepsis. 0.50-2.00 ng/mL Increased likelihood of sepsis. Antibiotics encouraged. >2.00 ng/mL High risk of sepsis/shock. Antibiotics strongly encouraged. Suspected Lower Resp Tract Infections: <0.24 ng/mL Low likelihood of bacterial infection. >0.24 ng/mL Increased likelihood of bacterial infection. Antibiotics encouraged. With successful antibiotic therapy, PCT levels should decrease rapidly. (Half-life of 24 to 36 hours.) Procalcitonin values from samples collected within the first 6 hours of systemic infection may still be low. Retesting may be indicated. Values from day 1 and day 4 can be entered into the Change in Procalcitonin Calculator (www.mpsrwa-yyb-dpgnucgkld.com) to determine the patient's Mortality Risk Prognosis In healthy neonates, plasma Procalcitonin (PCT) concentrations increase gradually after , reaching peak values at about 24 hours of age then decrease to normal values below 0.5 ng/mL by 48-72 hours of age. Performed By: #### H EPXA, PT #### [facility] [address] [place] [phone] Hoop Cutter: Romel Clemons MD Interpretation and review of laboratory results Abnormal [facility] Procalcitonin [Mass/Vol] 0.14 ng/mL High NINF - 0.09 ng/mL [facility] Comment on above: Suspected Sepsis: <0.50 ng/mL Low likelihood of sepsis. 0.50-2.00 ng/mL Increased likelihood of sepsis. Antibiotics encouraged. >2.00 ng/mL High risk of sepsis/shock. Antibiotics strongly encouraged. Suspected Lower Resp Tract Infections: <0.24 ng/mL Low likelihood of bacterial infection. >0.24 ng/mL Increased likelihood of bacterial infection. Antibiotics encouraged. With successful antibiotic therapy, PCT levels should decrease rapidly. (Half-life of 24 to 36 hours.) Procalcitonin values from samples collected within the first 6 hours of systemic infection may still be low. Retesting may be indicated. Values from day 1 and day 4 can be entered into the Change in Procalcitonin Calculator (www.[email or web address]-[email or web address].[email or web address]) to determine the patient's Mortality Risk Prognosis In healthy neonates, plasma Procalcitonin (PCT) concentrations increase gradually after , reaching peak values at about 24 hours of age then decrease to normal values below 0.5 ng/mL by 48-72 hours of age. [facility] Protime-INRon 04-26-2023 Interpretation and review of laboratory results Abnormal [facility] Troponinon 04-26-2023 Troponin, High Sens 64 ng/L Critically high 0-14 [facility] Comment on above: Result Comment: High Sensitivity Troponin values cannot be compared with other Troponin methodologies. Performed By: #### B MP, CDP, PT #### [facility] [employer] [facility] [place], [place] [phone] Hoop Cutter: Romel Clemons MD Interpretation and review of laboratory results Abnormal [facility] Troponin I.cardiac High sensitivity method [Mass/Vol] 64 ng/L Critically high 0 - 14 ng/L [facility] Comment on above: High Sensitivity Tro ponin values cannot be compared with other Troponin methodologies. [facility] UA w/Reflex Cultureon 2023 Bilirubin, SemiQt,Ur Negative Normal NEG [facility] Comment on above: Performed By: #### B LOGAN, CDP, PT #### [facility] [employer] [address] [place] [phone] Hoop Cutter: Romel Clemons MD Blood, Urine Negative Normal NEG [facility] Comment on above: Performed By: #### B MP, CDP, PT #### [facility] [employer] [address] [place] [phone] Hoop Cutter: Romel Clemons MD Clarity (U) Clear Normal CLEAR [facility] Comment on above: Performed By: #### B LOGAN, CDP, PT #### [facility] [employer] [address] [place] [phone] Hoop Cutter: Romel Clemons MD Color (U) Yellow Normal YEL [facility] Comment on above: Performed By: #### B LOGAN, CDP, PT #### [facility] [employer] [address] [place] [phone] Hoop Cutter: Romel Clemons MD Glucose Ql (U) Negative Normal NEG [facility] Comment on above: Performed By: #### B LOGAN, CDP, PT #### [facility] [employer] [address] [place] [phone] Hoop Cutter: Romel Clemons MD Ketones Ql (U) Negative Normal NEG [facility] Comment on above: Performed By: #### B LOGAN, CDP, PT #### [facility] [employer] [address] [place] [phone] Hoop Cutter: Romel Clemons MD Leukocyte esterase Test strip Ql (U) TRACE Abnormal NEG [facility] Comment on above: Performed By: #### B LOGAN, CDP, PT #### [facility] [facility] [employer] [address] [place] [phone] Hoop Cutter: Romel Clemons MD Nitrite,Ur Negative Normal NEG [facility] Comment on above: Performed By: #### B MP, CDP, PT #### [facility] [address] [place] [address] Hoop Cutter: Romel Clemons MD PH,Ur 6.5 Normal 5.0-8.0 [facility] Comment on above: Performed By: #### B MARK FORD, PT #### [facility] [place] [address] Hoop Cutter: Romel Clemons MD Protein Ql (U) Negative Normal NEG [facility] Comment on above: Performed By: #### B MARK FORD, PT #### [facility] [address] [place] [address] Hoop Cutter: Romel Clemons MD Spec. Sharon,Ur 1.011 Normal 1.005-1.[address] [facility] Comment on above: Performed By: #### B MARK FORD, PT #### [facility] [address] [place] [phone] Hoop Cutter: Romel Clemons MD Urobilinogen,Ur Normal Normal 0.0-1.0 [facility] Comment on above: Performed By: #### B MARK FORD, PT #### [facility] [employer] [address] [place] [address] [phone] Hoop Cutter: Romel Clemons MD Urinalysis with Reflex to Cu ltureon 04-26-2023 Bilirubin Ql (U) Negative NEGATIVE [facility] [employer] Clarity (U) Clear Clear [facility] Color (U) Yellow Yellow [facility] Glucose Test strip (U) [Mass/Vol] Negative NEGATIVE mg/dL [facility] Hemoglobin Auto test strip Ql (U) Negative NEGATIVE [facility] Interpretation and review of laboratory results Abnormal [facility] Ketones (U) [Mass/Vol] Negative NEGATIVE mg/dL [facility] Leukocyte esterase Test strip Ql (U) TRACE Abnormal NEGATIVE [facility] Nitrite Ql (U) Negative NEGATIVE [facility] pH (U) 6.5 [pH] 5.0 - 8.0 [facility] Protein (U) [Mass/Vol] Negative NEGATIVE mg/dL [facility] Specific gravity (U) [Rel density] 1.011 1.005 - 1.030 [facility] Urobilinogen Qn (U) Normal 0.0 - 1. 0 EU/dL [facility] Urinalysis,Microon 4 Urine RBC's 2 TO 5 Normal 0-4 [facility] Comment on above: Result Comment: Refe rence range defined for non-centrifuged specimen. Performed By: #### B MARK FORD, PT #### [facility] [employer] [address] [place] [phone] Hoop Cutter: Romel Clemons MD Bacteria None Normal NONE [facility] Comment on above: Performed By: #### B MARK FORD, PT #### [facility] [address] [place] [address] [phone] Hoop Cutter: Romel Clemons MD Casts 0 TO 2 HYALINE Normal 0-8 [facility] Comment on above: Result Comment: Refe rence range defined for non-centrifuged specimen. Performed By: #### B MARK FORD, PT #### [facility] [address] [place] [address] Hoop Cutter: Romel Clemons MD Epithelial cells LM Ql (Urine sed) 2 TO 5 Normal 0-5 [facility] Comment on above: Performed By: #### B MARK FORD, PT #### [employer] [address] [place] [address] [phone] Hoop Cutter: Romel Clemons MD Urine WBC's 2 TO 5 Normal 0-5 [facility] Comment on above: Performed By: #### B MARK FORD, PT #### [employer] [address] [place] [address] [phone] Hoop Cutter: Romel Clemons MD Vascular duplex lower extrem ity arteries left with ABIon 04-26-2023 Radiology Study observation (narrative) [facility] Rayn XR CHEST PORTABLEon 04-26-19 XR CHEST PORTABLE EXAMINATION: ONE XRAY VIEW OF THE CHEST 04/26/2023 3:35 pm COMPARISON: None. HISTORY: Concern for fluid overload. FINDINGS: Patient is mildly rotated. Cardiomediastinal silhouette at the upper limit of normal. Left hemidiaphragm is mildly elevated. Left basilar atelectasis/scarring. Right lung is relatively clear. No significant pleural effusion. No pneumothorax. IMPRESSION: Left basilar atelectasis/scarring. No significant pleural effusion or evidence of pulmonary edema. Interpreted by: Efren Morel MD Signed by: Efren Morel MD 04/26/23 Final result Normal [facility] Basic Metabolic Panelon Anion gap [Moles/Vol] 11 mmol/L 9 - 17 mmol/L [facility] [employer] Calcium [Mass/Vol] 8.6 mg/dL 8.6 - 10. 4 mg/dL [facility] [employer] Chloride [Moles/Vol] 103 mmol/L 98 - 10 7 mmol/L [facility] [employer] CO2 [Moles/Vol] 23 mmol/L 20 - 31 mmol/L [facility] [employer] Creatinine [Mass/Vol] 0.5 mg/dL 0.5 - 0.9 mg/dL [facility] [employer] GFR/1.73 sq M.predicted MDRD (S/P/Bld) [Vol rate/Area] - PINF [facility] Comment on above: These results are not intended for use in patients <18 years of age. eGFR results are calculated without a race factor using the 2020 CKD-EPI equation. Careful clinical correlation is recommended, particularly when comparing to results calculated using previous equations. The CKD-EPI equation is less accurate in patients with extremes of muscle mass, extra-renal metabolism of creatine, excessive creatine ingestion, or following therapy that affects renal tubular secretion. Glucose [Mass/Vol] 119 mg/dL High 70 - 99 mg/dL [facility] Interpretation and review of laboratory results Abnormal [facility] Potassium [Moles/Vol] 4.0 mmol/L 3.7 - 5.3 mmol/L [facility] Sodium [Moles/Vol] 137 mmol/L 135 - 144 mmol/L [facility] Urea nitrogen [Mass/Vol] 13 mg/dL 6 - 20 mg/dL [facility] Basic Metabolic Profon 04-25 Anion gap [Moles/Vol] 11 mmol/L Normal 9-17 [facility] Comment on above: Performed By: #### B MARK FORD, PT #### [facility] [address] [place] [phone] Hoop Cutter: Romel Clemons MD Calcium [Mass/Vol] 8.6 mg/dL Normal 8.6-10.4 [facility] Comment on above: Performed By: #### B MARK FORD, PT #### [facility] [address] [place] [phone] Hoop Cutter: Romel Clemons MD Chloride [Moles/Vol] 103 mmol/L Normal 98-107 [facility] Comment on above: Performed By: #### B MARK FORD, PT #### [facility] [address] [place] [address] [phone] Hoop Cutter: Romel Clemons MD CO2 [Moles/Vol] 23 mmol/L Normal 20-31 [facility] Comment on above: Performed By: #### B MARK FORD, PT #### [facility] [address] [place] [address] [phone] Hoop Cutter: Romel Clemons MD Creatinine [Mass/Vol] 0.5 mg/dL Normal 0.5-0.9 [facility] Comment on above: Performed By: #### B MARK FORD, PT #### [employer] [address] [place] [address] [phone] Hoop Cutter: Romel Clemons MD GFR/1.73 sq M.predicted among non-blacks MDRD (S/P/Bld) [Vol rate/Area] mL/min/{1.73_m2} Normal >60 [facility] Comment on above: Result Comment: These results are not intended for use in patients <18 years of age. eGFR results are calculated without a race factor using the 2020 CKD-EPI equation. Careful clinical correlation is recommended, particularly when comparing to results calculated using previous equations. The CKD-EPI equation is less accurate in patients with extremes of muscle mass, extra-renal metabolism of creatine, excessive creatine ingestion, or following therapy that affects renal tubular secretion. Performed By: #### B MARK FORD, PT #### [facility] [address] [place] [address] [phone] Hoop Cutter: Romel Clemons MD Glucose [Mass/Vol] 119 mg/dL High 70-99 [facility] Comment on above: Performed By: #### B MARK FORD, PT #### [facility] [address] [place] [address] [phone] Hoop Cutter: Romel Clemons MD Potassium [Moles/Vol] 4.0 mmol/L Normal 3.7-5.3 [facility] Comment on above: Performed By: #### B MARK FORD, PT #### [facility] [address] [place] [address] [phone] Hoop Cutter: Romel Clemons MD Sodium [Moles/Vol] 137 mmol/L Normal 135-144 [facility] Comment on above: Performed By: #### B MARK FORD, PT #### [facility] [address] [place] [address] 75081 Hoop Cutter: Romel Clemons MD Urea nitrogen [Mass/Vol] 13 mg/dL Normal 6-20 [facility] Comment on above: Performed By: #### B MARK FORD, PT #### [facility] [address] [place] [address] [phone] Hoop Cutter: Romel Clemons MD CBC with Auto Differentialon 04-25-2023 Basophils (Bld) [#/Vol] [facility] Basophils/100 WBC (Bld) 0 % 0 - 2 % [facility] Eosinophils (Bld) [#/Vol] [facility] Eosinophils/100 WBC (Bld) 0 % Low 1 - 4 % [facility] Erythrocyte distribution width (RBC) [Ratio] 13.7 % 11.8 - 14.4 % [facility] Hematocrit (Bld) [Volume fraction] 32.7 % Low 36.3 - 47.1 % [facility] Hemoglobin (Bld) [Mass/Vol] 9.8 g/dL Low 11.9 - 15.1 g/dL [facility] Immature granulocytes (Bld) [#/Vol] 0.03 10*3/uL [facility] Immature granulocytes/100 WBC (Bld) 1 % High 0 [facility] Interpretation and review of laboratory results Abnormal [facility] Lymphocytes/100 WBC (Bld) 20 % Low 24 - 43 % [facility] Lymphocytes/100 WBC (Bld) 1.24 % [facility] MCH (RBC) [Entitic mass] 30.0 pg 25.2 - 33.5 pg [facility] MCHC (RBC) [Mass/Vol] 30.0 g/dL 28.4 - 34.8 g/dL [facility] MCV (RBC) [Entitic vol] 100.0 fL 82.6 - 102.9 fL [facility] Monocytes/100 WBC (Bld) 10 % 3 - 12 % [facility] Monocytes/100 WBC (Bld) 0.62 % [facility] Neutrophils/100 WBC (Bld) 69 % High 36 - 65 % [facility] Nucleated RBC/100 WBC (Bld) [Ratio] 0.0 % 0.0 per 100 WBC [facility] Platelet mean volume (Bld) [Entitic vol] 9.2 fL 8.1 - 13.5 fL [facility] Platelets (Bld) [#/Vol] 343 10*3/uL [facility] RBC (Bld) [#/Vol] 3.27 10*6/uL Low 3.95 - 5.1 1 m/uL [facility] Segmented neutrophils/100 WBC (Bld) 4.37 % [facility] WBC other (Bld) [#/Vol] 6.3 [facility] CBC with Diffon 04-25-2023 Abs. Basophil <0.03 Normal 0.00-0.20 [facility] Comment on above: Performed By: #### B MARK FORD, PT #### [facility] [employer] [address] [place] [address] [phone] Hoop Cutter: Romel Clemons MD Abs. Eosinophil <0.03 Normal 0.00-0.44 [facility] Comment on above: Performed By: #### B MARK FORD, PT #### [facility] [employer] [address] [place] [address] [phone] Hoop Cutter: Romel Clemons MD Abs.Imm.Granulocyte 0.03 k/uL Normal 0.00-0.30 [facility] Comment on above: Performed By: #### B MARK FORD, PT #### [facility] [employer] [address] [place] [address] [phone] Hoop Cutter: Romel Clemons MD Abs.Neutrophil (Seg) 4.37 k/uL Normal 1.50-8.10 [facility] Comment on above: Performed By: #### B MARK FORD, PT #### [facility] [employer] [address] [place] [address] 44349 Hoop Cutter: Romel Clemons MD Basophils/100 WBC (Bld) 0 % Normal 0-2 [facility] Comment on above: Performed By: #### B LOGAN CDP, PT #### [facility] [employer] [address] [place] [address] 33073 Hoop Cutter: Romel Clemons MD Eosinophils/100 WBC (Bld) 0 % Low 1-4 [facility] Comment on above: Performed By: #### B LOGAN CDP, PT #### [facility] [address] [place] [address] [phone] Hoop Cutter: Romel Clemons MD Erythrocyte distribution width (RBC) [Ratio] 13.7 % Normal 11.8-14.4 [facility] Comment on above: Performed By: #### B MARK FORD, PT #### [facility] [employer] [address] [place] [address] [phone] Hoop Cutter: Romel Clemons MD Hematocrit (Bld) [Volume fraction] 32.7 % Low 36.3-47.1 [facility] Comment on above: Performed By: #### B MARK FORD, PT #### [facility] [employer] [address] [place] [address] 56514 Hoop Cutter: Romel Clemons MD Hemoglobin (Bld) [Mass/Vol] 9.8 g/dL Low 11.9-15.1 [facility] Comment on above: Performed By: #### B MARK FORD, PT #### [facility] [employer] [address] [place] [address] [phone] Hoop Cutter: Romel Clemons MD Immature granulocytes/100 WBC (Bld) 1 % High 0 [facility] Comment on above: Performed By: #### B MARK FORD, PT #### [facility] [employer] [address] [place] [address] [phone] Hoop Cutter: Romel Clemons MD Lymphocytes (Bld) [#/Vol] 1.24 10*3/uL Normal 1.10-3.70 [facility] Comment on above: Performed By: #### B MARK FORD, PT #### [facility] [address] [place] [address] 11329 Hoop Cutter: Romel Clemons MD Lymphocytes/100 WBC (Bld) 20 % Low 24-43 [facility] Comment on above: Performed By: #### B MARK FORD, PT #### [facility] [employer] [address] [place] [address] [phone] Hoop Cutter: Romel Clemons MD MCH (RBC) [Entitic mass] 30.0 pg Normal 25.2-33.5 [facility] Comment on above: Performed By: #### B MARK FORD, PT #### [address] [address] Hoop Cutter: Romel Clemons MD MCHC (RBC) [Mass/Vol] 30.0 g/dL Normal 28.4-34.8 [facility] Comment on above: Performed By: #### B MARK FORD, PT #### [facility] [employer] [address] [place] [address] [phone] Hoop Cutter: Romel Clemons MD MCV (RBC) [Entitic vol] 100.0 fL Normal 82.6-102.9 [facility] Comment on above: Performed By: #### B MARK FORD, PT #### [address] [address] Hoop Cutter: Romel lCemons MD Monocytes (Bld) [#/Vol] 0.62 10*3/uL Normal 0.10-1.20 [facility] Comment on above: Performed By: #### B MARK FORD, PT #### [address] [address] Hoop Cutter: Romel Clemons MD Monocytes/100 WBC (Bld) 10 % Normal 3-12 [facility] Comment on above: Performed By: #### B MARK FORD, PT #### [facility] [employer] [address] [place] [address] 30164 Hoop Cutter: Romel Clemons MD Neutrophil (Seg) 69 % High 36-65 [facility] Comment on above: Performed By: #### B MARK FORD, PT #### [facility] [employer] [address] [place] [address] 42681 Hoop Cutter: Romel Clemons MD NRBC Automated 0.0 per 100 WBC Normal 0.0 [facility] Comment on above: Performed By: #### B MP, CDP, PT #### [facility] [address] [place] [address] 15144 Hoop Cutter: Romel Clemons MD Platelet mean volume (Bld) [Entitic vol] 9.2 fL Normal 8.1-13.5 [facility] Comment on above: Performed By: #### B MP, CDP, PT #### [facility] [address] [place] [address] [phone] Hoop Cutter: Romel Clemons MD Platelets (Bld) [#/Vol] 343 10*3/uL Normal 138-453 [facility] Comment on above: Performed By: #### B MP, CDP, PT #### [facility] [address] [place] [address] 28734 Hoop Cutter: Romel Clemons MD RBC (Bld) [#/Vol] 3.27 10*6/uL Low 3.95-5.11 [facility] Comment on above: Performed By: #### B MP, CDP, PT #### [facility] [employer] [address] [place] [address] [phone] Hoop Cutter: Romel Clemons MD WBC (Bld) [#/Vol] 6.3 10*3/uL Normal 3.5-11.3 [facility] Comment on above: Performed By: #### B MP, CDP, PT #### [facility] [address] [place] [address] [phone] Hoop Cutter: Romel Clemons MD PTon 04-25-2023 INR Coag (PPP) [Relative time] 1.6 {INR} Normal [facility] Comment on above: Result Comment: Therapeutic Range: Moderate Anticoagulant Intensity: INR = 2.0-3.0 High Anticoagulant Intensity: INR = 2.5-3.5 Performed By: #### B MP, CDP, PT #### [facility] [address] [place] [address] [phone] Hoop Cutter: Romel Clemons MD PT Coag (PPP) [Time] 18.4 s High 11.7-14.9 [facility] Comment on above: Performed By: #### B MP, CDP, PT #### [facility] [address] [place] [address] Hoop Cutter: Romel Clemons MD Protime-INRon 04-25-2023 INR Coag (PPP) [Relative time] 1.6 {INR} [facility] Comment on above: Therapeutic Range: Moderate Anticoagulant Intensity: INR = 2.0-3.0 High Anticoagulant Intensity: INR = 2.5-3.5 Interpretation and review of laboratory results Abnormal [facility] PT Coag (PPP) [Time] 18.4 s High [facility] CBC with Auto Differentialon 04-24-2023 Basophils (Bld) [#/Vol] [facility] Basophils/100 WBC (Bld) 0 % 0 - 2 % [facility] Eosinophils (Bld) [#/Vol] [facility] Eosinophils/100 WBC (Bld) 0 % Low 1 - 4 % [facility] Erythrocyte distribution width (RBC) [Ratio] 13.9 % 11.8 - 14.4 % [facility] Hematocrit (Bld) [Volume fraction] 29.7 % Low 36.3 - 47.1 % [facility] Hemoglobin (Bld) [Mass/Vol] 9.3 g/dL Low 11.9 - 15.1 g/dL [facility] Immature granulocytes (Bld) [#/Vol] 0.03 10*3/uL [facility] Immature granulocytes/100 WBC (Bld) 1 % High 0 [facility] Interpretation and review of laboratory results Abnormal [facility] Lymphocytes/100 WBC (Bld) 26 % 24 - 43 % [facility] Lymphocytes/100 WBC (Bld) 1.09 % Low [facility] MCH (RBC) [Entitic mass] 30.6 pg 25.2 - 33.5 pg [facility] MCHC (RBC) [Mass/Vol] 31.3 g/dL 28.4 - 34.8 g/dL [facility] MCV (RBC) [Entitic vol] 97.7 fL 82.6 - 102.9 fL [facility] Monocytes/100 WBC (Bld) 10 % 3 - 12 % [facility] Monocytes/100 WBC (Bld) 0.43 % [facility] Neutrophils/100 WBC (Bld) 63 % 36 - 65 % [facility] Nucleated RBC/100 WBC (Bld) [Ratio] 0.0 % 0.0 per 100 WBC [facility] Platelet mean volume (Bld) [Entitic vol] 9.0 fL 8.1 - 13.5 fL [facility] Platelets (Bld) [#/Vol] 350 10*3/uL [facility] RBC (Bld) [#/Vol] 3.04 10*6/uL Low 3.95 - 5.1 1 m/uL [facility] Segmented neutrophils/100 WBC (Bld) 2.64 % [facility] WBC other (Bld) [#/Vol] 4.2 [facility] CBC with Diffon 04-24-2023 Abs. Basophil <0.03 Normal 0.00-0.20 [facility] Comment on above: Performed By: #### H EPXA, PT #### [facility] [address] [place] [address] Hoop Cutter: Romel Clemons MD Abs. Eosinophil <0.03 Normal 0.00-0.44 [facility] Comment on above: Performed By: #### H EPXA, PT #### [employer] [address] [place] [address] [phone] Hoop Cutter: Romel Clemons MD Abs.Imm.Granulocyte 0.03 k/uL Normal 0.00-0.30 [facility] Comment on above: Performed By: #### H EPXA, PT #### [employer] [address] [place], [place] [phone] Hoop Cutter: Romel Clemons MD Abs.Neutrophil (Seg) 2.64 k/uL Normal 1.50-8.10 [facility] Comment on above: Performed By: #### H EPXA, PT #### [facility] [employer] [address] [place] [address] 11353 Hoop Cutter: Romel Clemons MD Basophils/100 WBC (Bld) 0 % Normal 0-2 [facility] Comment on above: Performed By: #### H EPXA, PT #### [facility] [employer] [address] [place] [address] [phone] Hoop Cutter: Romel Clemons MD Eosinophils/100 WBC (Bld) 0 % Low 1-4 [facility] Comment on above: Performed By: #### H EPXA, PT #### [address] [address] Hoop Cutter: Romel Clemons MD Erythrocyte distribution width (RBC) [Ratio] 13.9 % Normal 11.8-14.4 [facility] Comment on above: Performed By: #### H EPXA, PT #### [facility] [employer] [address] [place] [address] [phone] Hoop Cutter: Romel Clemons MD Hematocrit (Bld) [Volume fraction] 29.7 % Low 36.3-47.1 [facility] Comment on above: Performed By: #### H EPXA, PT #### [facility] [employer] [address] [place] [address] 70781 Hoop Cutter: Romel Clemons MD Hemoglobin (Bld) [Mass/Vol] 9.3 g/dL Low 11.9-15.1 [facility] Comment on above: Performed By: #### H EPXA, PT #### [facility] [employer] [address] [place] [address] [phone] Hoop Cutter: Romel Clemons MD Immature granulocytes/100 WBC (Bld) 1 % High 0 [facility] Comment on above: Performed By: #### H EPXA, PT #### [place] [address] Hoop Cutter: Romel Clemons MD Lymphocytes (Bld) [#/Vol] 1.09 10*3/uL Low 1.10-3.70 [facility] Comment on above: Performed By: #### H EPXA, PT #### [place] [address] Hoop Cutter: Romel Clemons MD Lymphocytes/100 WBC (Bld) 26 % Normal 24-43 [facility] Comment on above: Performed By: #### H EPXA, PT #### [place] [address] Hoop Cutter: Romel Clemons MD MCH (RBC) [Entitic mass] 30.6 pg Normal 25.2-33.5 [facility] Comment on above: Performed By: #### H EPXA, PT #### [place] [address] Hoop Cutter: Romel Clemons MD MCHC (RBC) [Mass/Vol] 31.3 g/dL Normal 28.4-34.8 [facility] Comment on above: Performed By: #### H EPXA, PT #### [place] [address] Hoop Cutter: Romel Clemons MD MCV (RBC) [Entitic vol] 97.7 fL Normal 82.6-102.9 [facility] Comment on above: Performed By: #### H EPXA, PT #### [place] [address] Hoop Cutter: Romel Clemons MD Monocytes (Bld) [#/Vol] 0.43 10*3/uL Normal 0.10-1.20 [facility] Comment on above: Performed By: #### H EPXA, PT #### [address] [address] Hoop Cutter: Romel Clemons MD Monocytes/100 WBC (Bld) 10 % Normal 3-12 [facility] Comment on above: Performed By: #### H EPXA, PT #### [address] [address] Hoop Cutter: Romel Clemons MD Neutrophil (Seg) 63 % Normal 36-65 [facility] Comment on above: Performed By: #### H EPXA, PT #### [address] [address] Hoop Cutter: Romel Clemons MD NRBC Automated 0.0 per 100 WBC Normal 0.0 [facility] Comment on above: Performed By: #### H EPXA, PT #### [address] [address] Hoop Cutter: Romel Clemons MD Platelet mean volume (Bld) [Entitic vol] 9.0 fL Normal 8.1-13.5 [facility] Comment on above: Performed By: #### H EPXA, PT #### [address] [address] Hoop Cutter: Romel Clemons MD Platelets (Bld) [#/Vol] 350 10*3/uL Normal 138-453 [facility] Comment on above: Performed By: #### H EPXA, PT #### [address] [address] Hoop Cutter: Romel Clemons MD RBC (Bld) [#/Vol] 3.04 10*6/uL Low 3.95-5.11 [facility] Comment on above: Performed By: #### H EPXA, PT #### [address] [address] Hoop Cutter: Romel Clemons MD WBC (Bld) [#/Vol] 4.2 10*3/uL Normal 3.5-11.3 [facility] Comment on above: Performed By: #### H EPXA, PT #### [address] [address] Hoop Cutter: Romel Clemons MD Comp Metabolic Pr/rfx MGon 0 - Albumin [Mass/Vol] 3.1 g/dL Low 3.5-5.2 [facility] Comment on above: Performed By: #### H EPXA #### [address] [address] Hoop Cutter: Romel Clemons MD Albumin/Glob Ratio 1.2 Normal 1.0-2.5 [facility] Comment on above: Performed By: #### H EPXA #### [address] [address] Hoop Cutter: Romel Clemons MD Alkaline Phos 109 U/L High 35-104 [facility] Comment on above: Performed By: #### H EPXA #### [address] [address] Hoop Cutter: Romel Clemons MD ALT [Catalytic activity/Vol] 21 U/L Normal 5-33 [facility] Comment on above: Performed By: #### H EPXA #### [address] [address] Hoop Cutter: Romel Clemons MD Anion gap [Moles/Vol] 10 mmol/L Normal 9-17 [facility] Comment on above: Performed By: #### H EPXA #### [address] [address] Hoop Cutter: Romel Clemons MD AST [Catalytic activity/Vol] 18 U/L Normal <32 [facility] Comment on above: Performed By: #### H EPXA #### [address] [address] Hoop Cutter: Romel Clemons MD Bilirubin [Mass/Vol] 0.2 mg/dL Low 0.3-1.2 [facility] Comment on above: Performed By: #### H EPXA #### [address] [address] Hoop Cutter: Romel Clemons MD Calcium [Mass/Vol] 8.5 mg/dL Low 8.6-10.4 [facility] Comment on above: Performed By: #### H EPXA #### [address] [address] Hoop Cutter: Romel Clemons MD Chloride [Moles/Vol] 104 mmol/L Normal 98-107 [facility] Comment on above: Performed By: #### H EPXA #### [address] [address] Hoop Cutter: Romel Clemons MD CO2 [Moles/Vol] 24 mmol/L Normal 20-31 [facility] Comment on above: Performed By: #### H EPXA #### [address] [address] Hoop Cutter: Romel Clemons MD Creatinine [Mass/Vol] 0.5 mg/dL Normal 0.5-0.9 [facility] Comment on above: Performed By: #### H EPXA #### [address] [address] Hoop Cutter: Romel Clemons MD GFR/1.73 sq M.predicted among non-blacks MDRD (S/P/Bld) [Vol rate/Area] mL/min/{1.73_m2} Normal >60 [facility] Comment on above: Result Comment: These results are not intended for use in patients <18 years of age. eGFR results are calculated without a race factor using the 2020 CKD-EPI equation. Careful clinical correlation is recommended, particularly when comparing to results calculated using previous equations. The CKD-EPI equation is less accurate in patients with extremes of muscle mass, extra-renal metabolism of creatine, excessive creatine ingestion, or following therapy that affects renal tubular secretion. Performed By: #### H EPXA #### [address] [address] Hoop Cutter: oRmel Clemons MD Glucose [Mass/Vol] 116 mg/dL High 70-99 [facility] Comment on above: Performed By: #### H EPXA #### [address] [address] Hoop Cutter: Romel Clemons MD Potassium [Moles/Vol] 4.2 mmol/L Normal 3.7-5.3 [facility] Comment on above: Performed By: #### H EPXA #### [address] [address] Hoop Cutter: Romel Clemons MD Protein [Mass/Vol] 5.7 g/dL Low 6.4-8.3 [facility] Comment on above: Performed By: #### H EPXA #### [address] [address] Hoop Cutter: Romel Clemons MD Sodium [Moles/Vol] 138 mmol/L Normal 135-144 [facility] Comment on above: Performed By: #### H EPXA #### [facility] [employer] [address] [place] [address] Hoop Cutter: Romel Clemons MD Urea nitrogen [Mass/Vol] 10 mg/dL Normal 6-20 [facility] Comment on above: Performed By: #### H EPXA #### [address] [address] Hoop Cutter: Romel Clemons MD Comprehensive Metabolic Pane l w/ Reflex to on 04-24-2023 Albumin [Mass/Vol] 3.1 g/dL Low 3.5 - 5.2 g/dL [facility] Albumin/Globulin [Mass ratio] 1.2 {ratio} 1.0 - 2.5 [facility] ALP [Catalytic activity/Vol] 109 U/L High 35 - 104 U/L [facility] ALT [Catalytic activity/Vol] 21 U/L 5 - 33 U/L [facility] Anion gap [Moles/Vol] 10 mmol/L 9 - 17 mmol/L [facility] AST [Catalytic activity/Vol] 18 U/L NINF - 32 U/L [facility] Bilirubin [Mass/Vol] 0.2 mg/dL Low 0.3 - 1 .2 mg/dL [facility] Calcium [Mass/Vol] 8.5 mg/dL Low 8.6 - 10. 4 mg/dL [facility] Chloride [Moles/Vol] 104 mmol/L 98 - 10 7 mmol/L [facility] CO2 [Moles/Vol] 24 mmol/L 20 - 31 mmol/L [facility] Creatinine [Mass/Vol] 0.5 mg/dL 0.5 - 0.9 mg/dL [facility] GFR/1.73 sq M.predicted MDRD (S/P/Bld) [Vol rate/Area] - PINF [facility] Comment on above: These results are not intended for use in patients <18 years of age. eGFR results are calculated without a race factor using the 2020 CKD-EPI equation. Careful clinical correlation is recommended, particularly when comparing to results calculated using previous equations. The CKD-EPI equation is less accurate in patients with extremes of muscle mass, extra-renal metabolism of creatine, excessive creatine ingestion, or following therapy that affects renal tubular secretion. Glucose [Mass/Vol] 116 mg/dL High 70 - 99 mg/dL [facility] Interpretation and review of laboratory results Abnormal [facility] Potassium [Moles/Vol] 4.2 mmol/L 3.7 - 5.3 mmol/L [facility] Protein [Mass/Vol] 5.7 g/dL Low 6.4 - 8.3 g/dL [facility] Sodium [Moles/Vol] 138 mmol/L 135 - 144 mmol/L [facility] Urea nitrogen [Mass/Vol] 10 mg/dL 6 - 20 mg/dL [facility] PTon 04-24-2023 INR Coag (PPP) [Relative time] 1.1 {INR} Normal [facility] Comment on above: Result Comment: Therapeutic Range: Moderate Anticoagulant Intensity: INR = 2.0-3.0 High Anticoagulant Intensity: INR = 2.5-3.5 Performed By: #### H EPXA, PT #### [employer] [facility] [place] [address] Hoop Cutter: Romel Clemons MD PT Coag (PPP) [Time] 14.1 s Normal 11.7-14.9 [facility] Comment on above: Performed By: #### H EPXA, PT #### [employer] [address] [place] [phone] Hoop Cutter: Romel Clemons MD Protime-INRon 04-24-2023 INR Coag (PPP) [Relative time] 1.1 {INR} [facility] Comment on above: Therapeutic Range: Moderate Anticoagulant Intensity: INR = 2.0-3.0 High Anticoagulant Intensity: INR = 2.5-3.5 PT Coag (PPP) [Time] 14.1 s [facility] Basic Metabolic Panelon Anion gap [Moles/Vol] 9 mmol/L 9 - 17 mmol/L [facility] Calcium [Mass/Vol] 8.3 mg/dL Low 8.6 - 10. 4 mg/dL [facility] Chloride [Moles/Vol] 104 mmol/L 98 - 10 7 mmol/L [facility] CO2 [Moles/Vol] 25 mmol/L 20 - 31 mmol/L [facility] Creatinine [Mass/Vol] 0.6 mg/dL 0.5 - 0.9 mg/dL [facility] GFR/1.73 sq M.predicted MDRD (S/P/Bld) [Vol rate/Area] - PINF [facility] Comment on above: These results are not intended for use in patients <18 years of age. eGFR results are calculated without a race factor using the 2020 CKD-EPI equation. Careful clinical correlation is recommended, particularly when comparing to results calculated using previous equations. The CKD-EPI equation is less accurate in patients with extremes of muscle mass, extra-renal metabolism of creatine, excessive creatine ingestion, or following therapy that affects renal tubular secretion. Glucose [Mass/Vol] 113 mg/dL High 70 - 99 mg/dL [facility] Interpretation and review of laboratory results Abnormal [facility] Potassium [Moles/Vol] 3.8 mmol/L 3.7 - 5.3 mmol/L [facility] Sodium [Moles/Vol] 138 mmol/L 135 - 144 mmol/L [facility] Urea nitrogen [Mass/Vol] 12 mg/dL 6 - 20 mg/dL [facility] Basic Metabolic Profon 04-23 Anion gap [Moles/Vol] 9 mmol/L Normal 9-17 [facility] Comment on above: Performed By: #### B MARK FORD, PT #### [facility] [address] [place] [address] Hoop Cutter: Romel Clemons MD Calcium [Mass/Vol] 8.3 mg/dL Low 8.6-10.4 [facility] Comment on above: Performed By: #### B MARK FORD, PT #### [facility] [address] [place] [address] [phone] Hoop Cutter: Romel Clemons MD Chloride [Moles/Vol] 104 mmol/L Normal 98-107 [facility] Comment on above: Performed By: #### B MARK FORD, PT #### [facility] [address] [place] [address] [phone] Hoop Cutter: Romel Clemons MD CO2 [Moles/Vol] 25 mmol/L Normal 20-31 [facility] Comment on above: Performed By: #### B MARK FORD, PT #### [facility] [employer] [address] [place] [address] Hoop Cutter: Romel Clemons MD Creatinine [Mass/Vol] 0.6 mg/dL Normal 0.5-0.9 [facility] Comment on above: Performed By: #### B MARK FORD, PT #### [facility] [employer] [address] [place] [phone] Hoop Cutter: Romel Clemons MD GFR/1.73 sq M.predicted among non-blacks MDRD (S/P/Bld) [Vol rate/Area] mL/min/{1.73_m2} Normal >60 [facility] Comment on above: Result Comment: These results are not intended for use in patients <18 years of age. eGFR results are calculated without a race factor using the 2020 CKD-EPI equation. Careful clinical correlation is recommended, particularly when comparing to results calculated using previous equations. The CKD-EPI equation is less accurate in patients with extremes of muscle mass, extra-renal metabolism of creatine, excessive creatine ingestion, or following therapy that affects renal tubular secretion. Performed By: #### B MARK FORD, PT #### [facility] [employer] [address] [place] [phone] Hoop Cutter: Romel Clemons MD Glucose [Mass/Vol] 113 mg/dL High 70-99 [facility] Comment on above: Performed By: #### B MARK FORD, PT #### [facility] [employer] [address] [place] [address] Hoop Cutter: Romel Clemons MD Potassium [Moles/Vol] 3.8 mmol/L Normal 3.7-5.3 [facility] Comment on above: Performed By: #### B MARK FORD, PT #### [facility] [employer] [address] [place] [address] Hoop Cutter: Romel Clemons MD Sodium [Moles/Vol] 138 mmol/L Normal 135-144 [facility] Comment on above: Performed By: #### B LOGAN, MARK, PT #### [facility] [address] [place], [place] [phone] Hoop Cutter: Romel Clemons MD Urea nitrogen [Mass/Vol] 12 mg/dL Normal 6-20 [facility] Comment on above: Performed By: #### B LOGAN, MARK, PT #### [facility] [address] [place], [place] [phone] Hoop Cutter: Romel Clemons MD CBC with Auto Differentialon 04-23-2023 Basophils (Bld) [#/Vol] [facility] Basophils/100 WBC (Bld) 0 % 0 - 2 % [facility] Eosinophils (Bld) [#/Vol] [facility] Eosinophils/100 WBC (Bld) 0 % Low 1 - 4 % [facility] Erythrocyte distribution width (RBC) [Ratio] 14.0 % 11.8 - 14.4 % [facility] Hematocrit (Bld) [Volume fraction] 27.7 % Low 36.3 - 47.1 % [facility] Hemoglobin (Bld) [Mass/Vol] 8.6 g/dL Low 11.9 - 15.1 g/dL [facility] Immature granulocytes (Bld) [#/Vol] 0.04 10*3/uL [facility] Immature granulocytes/100 WBC (Bld) 1 % High 0 [facility] Interpretation and review of laboratory results Abnormal [facility] Lymphocytes/100 WBC (Bld) 23 % Low 24 - 43 % [facility] Lymphocytes/100 WBC (Bld) 1.12 % [facility] MCH (RBC) [Entitic mass] 30.7 pg 25.2 - 33.5 pg [facility] MCHC (RBC) [Mass/Vol] 31.0 g/dL 28.4 - 34.8 g/dL [facility] MCV (RBC) [Entitic vol] 98.9 fL 82.6 - 102.9 fL [facility] Monocytes/100 WBC (Bld) 13 % High 3 - 12 % [facility] Monocytes/100 WBC (Bld) 0.64 % [facility] Neutrophils/100 WBC (Bld) 63 % 36 - 65 % [facility] Nucleated RBC/100 WBC (Bld) [Ratio] 0.0 % 0.0 per 100 WBC [facility] Platelet mean volume (Bld) [Entitic vol] 9.3 fL 8.1 - 13.5 fL [facility] Platelets (Bld) [#/Vol] 296 10*3/uL [facility] RBC (Bld) [#/Vol] 2.80 10*6/uL Low 3.95 - 5.1 1 m/uL [facility] Segmented neutrophils/100 WBC (Bld) 3.01 % [facility] WBC other (Bld) [#/Vol] 4.8 [facility] CBC with Diffon 04-23-2023 Abs. Basophil <0.03 Normal 0.00-0.20 [facility] Comment on above: Performed By: #### B MARK FORD, PT #### [employer] [address] [place] [address] Hoop Cutter: Romel Clemons MD Abs. Eosinophil <0.03 Normal 0.00-0.44 [facility] Comment on above: Performed By: #### B MARK FORD, PT #### [employer] [address] [place] [address] Hoop Cutter: Romel Clemons MD Abs.Imm.Granulocyte 0.04 k/uL Normal 0.00-0.30 [facility] Comment on above: Performed By: #### B MARK FORD, PT #### [employer] [address] [place] [address] Hoop Cutter: Romel Clemons MD Abs.Neutrophil (Seg) 3.01 k/uL Normal 1.50-8.10 [facility] Comment on above: Performed By: #### B MARK FORD, PT #### [employer] [address] [place] [phone] Hoop Cutter: Romel Clemons MD Basophils/100 WBC (Bld) 0 % Normal 0-2 [facility] Comment on above: Performed By: #### B MP, CDP, PT #### [facility] [address] [place] [phone] Hoop Cutter: Romel Clemons MD Eosinophils/100 WBC (Bld) 0 % Low 1-4 [facility] Comment on above: Performed By: #### B LOGAN, CDP, PT #### [facility] [address] [place] [phone] Hoop Cutter: Romel Clemons MD Erythrocyte distribution width (RBC) [Ratio] 14.0 % Normal 11.8-14.4 [facility] Comment on above: Performed By: #### B LOGAN, CDP, PT #### [facility] [address] [place] [phone] Hoop Cutter: Romel Clemons MD Hematocrit (Bld) [Volume fraction] 27.7 % Low 36.3-47.1 [facility] Comment on above: Performed By: #### B LOGAN, CDP, PT #### [facility] [address] [place] [phone] Hoop Cutter: Romel Clemons MD Hemoglobin (Bld) [Mass/Vol] 8.6 g/dL Low 11.9-15.1 [facility] Comment on above: Performed By: #### B LOGAN, CDP, PT #### [facility] [address] [place] [phone] Hoop Cutter: Romel Clemons MD Immature granulocytes/100 WBC (Bld) 1 % High 0 [facility] Comment on above: Performed By: #### B LOGAN, CDP, PT #### [facility] [employer] [address] [place] [phone] Hoop Cutter: Romel Clemons MD Lymphocytes (Bld) [#/Vol] 1.12 10*3/uL Normal 1.10-3.70 [facility] Comment on above: Performed By: #### B MARK FORD, PT #### [facility] [address] [place] [phone] Hoop Cutter: Romel Clemons MD Lymphocytes/100 WBC (Bld) 23 % Low 24-43 [facility] Comment on above: Performed By: #### B MARK FORD, PT #### [facility] [employer] [address] [place] [phone] Hoop Cutter: Romel Clemons MD MCH (RBC) [Entitic mass] 30.7 pg Normal 25.2-33.5 [facility] Comment on above: Performed By: #### B MARK FORD, PT #### [address] [address] Hoop Cutter: Romel Clemons MD MCHC (RBC) [Mass/Vol] 31.0 g/dL Normal 28.4-34.8 [facility] Comment on above: Performed By: #### B MARK FORD, PT #### [facility] [employer] [address] [place] [phone] Hoop Cutter: Romel Clemons MD MCV (RBC) [Entitic vol] 98.9 fL Normal 82.6-102.9 [facility] Comment on above: Performed By: #### B MARK FORD, PT #### [facility] [employer] [address] [place] [phone] Hoop Cutter: Romel Clemons MD Monocytes (Bld) [#/Vol] 0.64 10*3/uL Normal 0.10-1.20 [facility] Comment on above: Performed By: #### B MARK FORD, PT #### [facility] [employer] [address] [place] [phone] Hoop Cutter: Romel Clemons MD Monocytes/100 WBC (Bld) 13 % High 3-12 [facility] Comment on above: Performed By: #### B MARK FORD, PT #### [address] [address] Hoop Cutter: Romel Clemons MD Neutrophil (Seg) 63 % Normal 36-65 [facility] Comment on above: Performed By: #### B MARK FORD, PT #### [address] [address] Hoop Cutter: Romel Clemons MD NRBC Automated 0.0 per 100 WBC Normal 0.0 [facility] Comment on above: Performed By: #### B MARK FORD, PT #### [address] [address] Ho[employer] Cutter: Romel Clemons MD Platelet mean volume (Bld) [Entitic vol] 9.3 fL Normal 8.1-13.5 [facility] Comment on above: Performed By: #### B MARK FORD, PT #### [address] [address] [employer] Cutter: Romel Clemons MD Platelets (Bld) [#/Vol] 296 10*3/uL Normal 138-453 [facility] Comment on above: Performed By: #### B MARK FORD, PT #### [address] [address] Hoop Cutter: Romel Clemons MD RBC (Bld) [#/Vol] 2.80 10*6/uL Low 3.95-5.11 [facility] Comment on above: Performed By: #### B MARK FORD, PT #### [address] [address] Hoop Cutter: Romel Clemons MD WBC (Bld) [#/Vol] 4.8 10*3/uL Normal 3.5-11.3 [facility] Comment on above: Performed By: #### B MP, CDP, PT #### [employer] [address] [place] [address] [phone] Hoop Cutter: Romel Clemons MD MRSA DNA Probe, Nasalon MRSA, DNA, Nasal Negative NEGATIVE [facility] Comment on above: NEGATIVE: MRSA DNA n ot detected by nucleic acid amplification. Results should be used as an adjunct to nosocomial control efforts to identify patients needing enhanced precautions. The test is not intended to identify patients with staphylococcal infections. Results should not be used to guide or monitor treatment for MRSA infections. Specimen Description .NASAL SWAB [facility] MRSA, DNA, Nasalon MRSA, DNA, Nasal Negative Normal NEG [facility] Comment on above: Result Comment: NEGA TIVE: MRSA DNA not detected by nucleic acid amplification. Results should be used as an adjunct to nosocomial control efforts to identify patients needing enhanced precautions. The test is not intended to identify patients with staphylococcal infections. Results should not be used to guide or monitor treatment for MRSA infections. Performed By: #### H EPXA, PT #### [employer] [address] [place] [address] [phone] Hoop Cutter: Romel Clemons MD PTon 04-23-2023 INR Coag (PPP) [Relative time] 1.4 {INR} Normal [facility] Comment on above: Result Comment: Therapeutic Range: Moderate Anticoagulant Intensity: INR = 2.0-3.0 High Anticoagulant Intensity: INR = 2.5-3.5 Performed By: #### H EPXA, PT #### [employer] [address] [place] [phone] Hoop Cutter: Romel Clemons MD PT Coag (PPP) [Time] 16.8 s High 11.7-14.9 [facility] Comment on above: Performed By: #### H EPXA, PT #### [employer] [address] [place] [phone] Hoop Cutter: Romel Clemons MD Protime-INRon 04-23-2023 INR Coag (PPP) [Relative time] 1.4 {INR} [facility] Comment on above: Therapeutic Range: Moderate Anticoagulant Intensity: INR = 2.0-3.0 High Anticoagulant Intensity: INR = 2.5-3.5 Interpretation and review of laboratory results Abnormal [facility] PT Coag (PPP) [Time] 16.8 s High [facility] Specimen Rejectionon 024 Reason for rejection DUPLICATE ORDER Normal [facility] Comment on above: Performed By: #### H EPXA, PT #### [employer] [address] [place], [place] [phone] Hoop Cutter: Romel Clemons MD Source of sample .BLOOD Normal [facility] Comment on above: Performed By: #### H EPXA, PT #### [employer] [address] [place] [phone] Hoop Cutter: Romel Clemons MD Test ordered PT [facility] Comment on above: Performed By: #### H EPXA, PT #### [employer] [address] [place], [place] [phone] Hoop Cutter: Romel Clemons MD Anti-Xa, Unfractionated Hepa rinon 04-22-2023 Anti-XA Unfrac Heparin 0.33 IU/L [facility] Anti-XA Unfrac Heparin 0.18 IU/L [facility] Basic Metabolic Panelon Anion gap [Moles/Vol] 8 mmol/L Low 9 - 17 mmol/L [facility] Calcium [Mass/Vol] 8.2 mg/dL Low 8.6 - 10. 4 mg/dL [facility] Chloride [Moles/Vol] 101 mmol/L 98 - 10 7 mmol/L [facility] CO2 [Moles/Vol] 27 mmol/L 20 - 31 mmol/L [facility] Creatinine [Mass/Vol] 0.5 mg/dL 0.5 - 0.9 mg/dL [facility] GFR/1.73 sq M.predicted MDRD (S/P/Bld) [Vol rate/Area] - PINF [facility] Comment on above: These results are not intended for use in patients <18 years of age. eGFR results are calculated without a race factor using the 2020 CKD-EPI equation. Careful clinical correlation is recommended, particularly when comparing to results calculated using previous equations. The CKD-EPI equation is less accurate in patients with extremes of muscle mass, extra-renal metabolism of creatine, excessive creatine ingestion, or following therapy that affects renal tubular secretion. Glucose [Mass/Vol] 136 mg/dL High 70 - 99 mg/dL [facility] Interpretation and review of laboratory results Abnormal [facility] Potassium [Moles/Vol] 4.0 mmol/L 3.7 - 5.3 mmol/L [facility] Sodium [Moles/Vol] 136 mmol/L 135 - 144 mmol/L [facility] Urea nitrogen [Mass/Vol] 11 mg/dL 6 - 20 mg/dL [facility] Basic Metabolic Profon 04-22 Anion gap [Moles/Vol] 8 mmol/L Low 9-17 [facility] Comment on above: Performed By: #### T ROPI, BMP, CDP, HEPXA #### [employer] [facility] [place] [address] Hoop Cutter: Romel Clemons MD Calcium [Mass/Vol] 8.2 mg/dL Low 8.6-10.4 [facility] Comment on above: Performed By: #### T ROPI, BMP, CDP, HEPXA #### [employer] [address] [place] [address] Hoop Cutter: Romel Clemons MD Chloride [Moles/Vol] 101 mmol/L Normal 98-107 [facility] Comment on above: Performed By: #### T ROPI, BMP, CDP, HEPXA #### [employer] [address] [place], [place] [phone] Hoop Cutter: Romel Clemons MD CO2 [Moles/Vol] 27 mmol/L Normal 20-31 [facility] Comment on above: Performed By: #### T ROPI, BMP, CDP, HEPXA #### [facility] [employer] [address] [place] [address] [phone] Hoop Cutter: Romel Clemons MD Creatinine [Mass/Vol] 0.5 mg/dL Normal 0.5-0.9 [facility] Comment on above: Performed By: #### T ROPI, BMP, CDP, HEPXA #### [address] [phone] Hoop Cutter: Romel Clemons MD GFR/1.73 sq M.predicted among non-blacks MDRD (S/P/Bld) [Vol rate/Area] mL/min/{1.73_m2} Normal >60 [facility] Comment on above: Result Comment: These results are not intended for use in patients <18 years of age. eGFR results are calculated without a race factor using the 2020 CKD-EPI equation. Careful clinical correlation is recommended, particularly when comparing to results calculated using previous equations. The CKD-EPI equation is less accurate in patients with extremes of muscle mass, extra-renal metabolism of creatine, excessive creatine ingestion, or following therapy that affects renal tubular secretion. Performed By: #### T LINDSAY, BMP, CDP, HEPXA #### [facility] [employer] [address] [place] [phone] Hoop Cutter: Romel Clemons MD Glucose [Mass/Vol] 136 mg/dL High 70-99 [facility] Comment on above: Performed By: #### T ROPI, BMP, CDP, HEPXA #### [facility] [employer] [address] [place] [address] [phone] Hoop Cutter: Romel Clemons MD Potassium [Moles/Vol] 4.0 mmol/L Normal 3.7-5.3 [facility] Comment on above: Performed By: #### T ROPI, BMP, CDP, HEPXA #### [facility] [address] [place], [place] [phone] Hoop Cutter: Romel Clemons MD Sodium [Moles/Vol] 136 mmol/L Normal 135-144 [facility] Comment on above: Performed By: #### T ROPI, BMP, CDP, HEPXA #### [facility] [address] [place], [place] [phone] Hoop Cutter: Romel Clemons MD Urea nitrogen [Mass/Vol] 11 mg/dL Normal 6-20 [facility] Comment on above: Performed By: #### T ROPI, BMP, CDP, HEPXA #### [facility] [address] [place], [place] [phone] Hoop Cutter: Romel Clemons MD CBC with Auto Differentialon 04-22-2023 Basophils (Bld) [#/Vol] [facility] Basophils/100 WBC (Bld) 0 % 0 - 2 % [facility] Eosinophils (Bld) [#/Vol] [facility] Eosinophils/100 WBC (Bld) 0 % Low 1 - 4 % [facility] Erythrocyte distribution width (RBC) [Ratio] 14.0 % 11.8 - 14.4 % [facility] Hematocrit (Bld) [Volume fraction] 27.2 % Low 36.3 - 47.1 % [facility] Hemoglobin (Bld) [Mass/Vol] 8.5 g/dL Low 11.9 - 15.1 g/dL [facility] HEALTH Immature granulocytes (Bld) [#/Vol] 0.05 10*3/uL [facility] Immature granulocytes/100 WBC (Bld) 1 % High 0 [facility] Interpretation and review of laboratory results Abnormal [facility] Lymphocytes/100 WBC (Bld) 17 % Low 24 - 43 % [facility] Lymphocytes/100 WBC (Bld) 0.98 % Low [facility] MCH (RBC) [Entitic mass] 30.4 pg 25.2 - 33.5 pg [facility] MCHC (RBC) [Mass/Vol] 31.3 g/dL 28.4 - 34.8 g/dL [facility] MCV (RBC) [Entitic vol] 97.1 fL 82.6 - 102.9 fL [facility] Monocytes/100 WBC (Bld) 15 % High 3 - 12 % [facility] Monocytes/100 WBC (Bld) 0.87 % [facility] Neutrophils/100 WBC (Bld) 67 % High 36 - 65 % [facility] Nucleated RBC/100 WBC (Bld) [Ratio] 0.0 % 0.0 per 100 WBC [facility] Platelet mean volume (Bld) [Entitic vol] 9.5 fL 8.1 - 13.5 fL [facility] Platelets (Bld) [#/Vol] 248 10*3/uL [facility] RBC (Bld) [#/Vol] 2.80 10*6/uL Low 3.95 - 5.1 1 m/uL [facility] [employer] Segmented neutrophils/100 WBC (Bld) 3.92 % [facility] WBC other (Bld) [#/Vol] 5.8 [facility] CBC with Diffon 04-22-2023 Abs. Basophil <0.03 Normal 0.00-0.20 [facility] Comment on above: Performed By: #### T ROPI, BMP, CDP, HEPXA #### [employer] [facility] [place] [id number] Hoop Cutter: Romel Clemons MD Abs. Eosinophil <0.03 Normal 0.00-0.44 [facility] Comment on above: Performed By: #### T ROPI, BMP, CDP, HEPXA #### [employer] [address] [place] [id number] Hoop Cutter: Romel Clemons MD Abs.Imm.Granulocyte 0.05 k/uL Normal 0.00-0.30 [facility] Comment on above: Performed By: #### T ROPI, BMP, CDP, HEPXA #### [employer] [address] [place] [phone] Hoop Cutter: Romel Clemons MD Abs.Neutrophil (Seg) 3.92 k/uL Normal 1.50-8.10 [facility] Comment on above: Performed By: #### T ROPI, BMP, CDP, HEPXA #### [facility] [employer] [address] [place] [phone] Hoop Cutter: Romel Clemons MD Basophils/100 WBC (Bld) 0 % Normal 0-2 [facility] Comment on above: Performed By: #### T ROPI, BMP, CDP, HEPXA #### [facility] [employer] [address] [place] [id number] Hoop Cutter: Romel Clemons MD Eosinophils/100 WBC (Bld) 0 % Low 1-4 [facility] Comment on above: Performed By: #### T ROPI, BMP, CDP, HEPXA #### [facility] [employer] [address] [place] [phone] Hoop Cutter: Romel Clemons MD Erythrocyte distribution width (RBC) [Ratio] 14.0 % Normal 11.8-14.4 [facility] Comment on above: Performed By: #### T ROPI, BMP, CDP, HEPXA #### [facility] [address] [place] [phone] Hoop Cutter: Romel Clemons MD Hematocrit (Bld) [Volume fraction] 27.2 % Low 36.3-47.1 [facility] Comment on above: Performed By: #### T ROPI, BMP, CDP, HEPXA #### [facility] [address] [place] [phone] Hoop Cutter: Romel Clemons MD Hemoglobin (Bld) [Mass/Vol] 8.5 g/dL Low 11.9-15.1 [facility] Comment on above: Performed By: #### T ROPI, BMP, CDP, HEPXA #### [address] [address] Hoop Cutter: Romel Clemons MD Immature granulocytes/100 WBC (Bld) 1 % High 0 [facility] Comment on above: Performed By: #### T ROPI, BMP, CDP, HEPXA #### [address] [address] Hoop Cutter: Romel Clemons MD Lymphocytes (Bld) [#/Vol] 0.98 10*3/uL Low 1.10-3.70 [facility] Comment on above: Performed By: #### T ROPI, BMP, CDP, HEPXA #### [address] [address] Hoop Cutter: Romel Clemons MD Lymphocytes/100 WBC (Bld) 17 % Low 24-43 [facility] Comment on above: Performed By: #### T ROPI, BMP, CDP, HEPXA #### [facility] [employer] [address] [place] [phone] Hoop Cutter: Romel Clemons MD MCH (RBC) [Entitic mass] 30.4 pg Normal 25.2-33.5 [facility] Comment on above: Performed By: #### T ROPI, BMP, CDP, HEPXA #### [address] [address] Hoop Cutter: Romel Clemons MD MCHC (RBC) [Mass/Vol] 31.3 g/dL Normal 28.4-34.8 [facility] Comment on above: Performed By: #### T ROPI, BMP, CDP, HEPXA #### [facility] [employer] [address] [place] [address] Hoop Cutter: Romel Clemons MD MCV (RBC) [Entitic vol] 97.1 fL Normal 82.6-102.9 [facility] Comment on above: Performed By: #### T ROPI, BMP, CDP, HEPXA #### [address] [address] Hoop Cutter: Romel Clemons MD Monocytes (Bld) [#/Vol] 0.87 10*3/uL Normal 0.10-1.20 [facility] Comment on above: Performed By: #### T ROPI, BMP, CDP, HEPXA #### [address] [address] Hoop Cutter: Romel Clemons MD Monocytes/100 WBC (Bld) 15 % High 3-12 [facility] Comment on above: Performed By: #### T ROPI, BMP, CDP, HEPXA #### [address] [address] Hoop Cutter: Romel Clemons MD Neutrophil (Seg) 67 % High 36-65 [facility] Comment on above: Performed By: #### T ROPI, BMP, CDP, HEPXA #### [address] [address] Hoop Cutter: Romel Clemons MD NRBC Automated 0.0 per 100 WBC Normal 0.0 [facility] Comment on above: Performed By: #### T ROPI, BMP, CDP, HEPXA #### [address] [address] Hoop Cutter: Romel Clemons MD Platelet mean volume (Bld) [Entitic vol] 9.5 fL Normal 8.1-13.5 [facility] Comment on above: Performed By: #### T ROPI, BMP, CDP, HEPXA #### [facility] [employer] [address] [place] [address] Hoop Cutter: Romel Clemons MD Platelets (Bld) [#/Vol] 248 10*3/uL Normal 138-453 [facility] Comment on above: Performed By: #### T ROPI, BMP, CDP, HEPXA #### [facility] [address] [place] [address] Hoop Cutter: Romel Clemons MD RBC (Bld) [#/Vol] 2.80 10*6/uL Low 3.95-5.11 [facility] Comment on above: Performed By: #### T ROPI, BMP, CDP, HEPXA #### [facility] [address] [place] [address] Hoop Cutter: Romel Clemons MD WBC (Bld) [#/Vol] 5.8 10*3/uL Normal 3.5-11.3 [facility] Comment on above: Performed By: #### T ROPI, BMP, CDP, HEPXA #### [facility] [address] [place] [address] Hoop Cutter: Romel Clemons MD EKG 12 LeadOrdered By: Haven Marshall on 04-22-2023 Atrial Rate 106 BPM [facility] [employer] Work Phone: P Henefer 5 degrees [employer] Work Phone: P-R Interval 128 ms [employer] [employer] Work Phone: Q-T Interval 346 ms [employer] Work Phone: QRS Duration 94 ms [employer] [employer] Work Phone: QTc Calculation (Bazett) 459 ms [employer] Work Phone: R Henefer -4 degrees [employer] Work Phone: T Henefer -5 degrees [employer] Work Phone: Ventricular Rate 106 BPM [facility] [employer] Work Phone: [facility] [employer] Work Phone: EKG 12 Leadon 04-22-2023 Sinus tachycardia Voltage criteria for left ventricular hypertrophy Inferior infarct , age undetermined Abnormal ECG No previous ECGs available [facility] Haven Diop MD - 04/22/2023 Sinus tachycardia Voltage criteria for left ventricular hypertrophy Inferior infarct , age undetermined Abnormal ECG No previous ECGs available [facility] Normal sinus rhythm Moderate voltage criteria for LVH, may be normal variant Possible Inferior infarct , age undetermined Abnormal ECG No previous ECGs available [facility] Andrea Tadeo MD - 04/22/2023 Normal sinus rhythm Moderate voltage criteria for LVH, may be normal variant Possible Inferior infarct , age undetermined Abnormal ECG No previous ECGs available [facility] Atrial Rate 88 BPM [facility] P Henefer 59 degrees [facility] P-R Interval 144 ms [facility] Q-T Interval 390 ms [facility] QRS Duration 86 ms [facility] QTc Calculation (Bazett) 471 ms [facility] R Henefer 11 degrees [facility] T Henefer 19 degrees [facility] Ventricular Rate 88 BPM [facility] Normal sinus rhythm Nonspecific T wave abnormality Prolonged QT Abnormal ECG When compared with ECG of 21-APR-2023 17:03, Borderline criteria for Inferior infarct are no longer Present [facility] STAndrea Neal MD - 04/22/2023 Normal sinus rhythm Nonspecific T wave abnormality Prolonged QT Abnormal ECG When compared with ECG of 21-APR-2023 17:03, Borderline criteria for Inferior infarct are no longer Present [facility] EKG 12 LeadOrdered By: Andrea Mcknight on 04-22-2023 Atrial Rate 99 BPM [facility] Work Phone: P Henefer 56 degrees [facility] Work Phone: P-R Interval 146 ms [facility] Work Phone: Q-T Interval 348 ms [facility] Work Phone: QRS Duration 90 ms [facility] Work Phone: QTc Calculation (Bazett) 446 ms [facility] Work Phone: R Henefer 6 degrees [employer] [employer] Work Phone: T Henefer 20 degrees [employer] [employer] Work Phone: Ventricular Rate 99 BPM [facility] [employer] Work Phone: [facility] [employer] Work Phone: Echo (TTE) complete (PRN con trast/bubble/strain/3D)Ordered By: Deejay Choe on 04-22-2023 Ao Root Index 1.35 cm/m2 [facility] [employer] Phone: Aortic Root 3.0 cm [employer] Phone: AV Area by Peak Velocity 2.2 cm2 [employer] Phone: AV Area by VTI 2.3 cm2 [facility] [employer] Phone: AV Mean Gradient 4 mmHg [facility] SEC[facility] [employer] Work Phone: AV Mean Velocity 0.9 m/s AMY CARDOSOO MANOLO [employer] Phone: AV Peak Gradient 8 mmHg AMY 1234ENTERMary [employer] Phone: AV Peak Velocity 1.5 m/s AMY FRENCH [employer] Phone: AV Velocity Ratio 0.67 AMY 1234ENTER NEAL [employer] Phone: AV VTI 24.0 cm [facility] [employer] Phone: DEMETRIUS/BSA Peak Velocity 1.0 cm2/m2 [facility] [employer] Phone: DEMETRIUS/BSA VTI 1.0 cm2/m2 [employer] Phone: Body surface area Derived from formula 2.29 m2 [employer] Phone: E/E' Lateral 5.08 [employer] Phone: E/E' Ratio (Averaged) 5.54 [employer] Phone: EF BP 65 % 55 - 100 % [employer] Phone: Fractional Shortening 2D 18 % 28 - 44 % [employer] Phone: Interpretation and review of laboratory results Abnormal [employer] Phone: IVSd 1.0 cm Abnormal 0.6 - 0.9 cm [employer] Phone: LA Area 2C 14.4 cm2 [employer] Phone: LA Area 4C 15.7 cm2 [employer] Phone: LA Diameter 3.4 cm [employer] Phone: LA Major Henefer 5.8 cm [employer] Phone: LA Minor Henefer 5.0 cm [employer] Phone: LA Size Index 1.52 cm/m2 [employer] Phone: LA Volume BP 36 mL 22 - 52 mL [employer] Phone: LA Volume Index BP 16 ml/m2 16 - 34 ml/m2 [employer] Phone: LA Volume Index MOD A2C 15 ml/m2 Abnormal 16 - 34 ml/m2 [employer] Phone: LA Volume Index MOD A4C 15 ml/m2 Abnormal 16 - 34 ml/m2 [employer] Phone: LA Volume MOD A2C 34 mL 22 - 52 mL [employer] Phone: LA Volume MOD A4C 34 mL 22 - 52 mL [employer] Phone: LA/AO Root Ratio 1.13 [facility] [employer] Phone: LV E' Lateral Velocity 13 cm/s [employer] Phone: LV E' Septal Velocity 11 cm/s [employer] Work Phone: LV EDV A2C 59 mL [employer] Work Phone: LV EDV A4C 76 mL [employer] Work Phone: LV EDV Index A2C 26 mL/m2 [facility] [employer] Work Phone: LV EDV Index A4C 34 mL/m2 [facility] [employer] Work Phone: LV Ejection Fraction A2C 60 % [employer] Work Phone: LV Ejection Fraction A4C 70 % [employer] Work Phone: LV ESV A2C 24 mL [employer] Work Phone: LV ESV A4C 23 mL [employer] Work Phone: LV ESV Index A2C 11 mL/m2 [facility] [employer] Work Phone: LV ESV Index A4C 10 mL/m2 B[facility] 1234ENTERO [employer] Work Phone: LV Mass 2D 147.8 g 67 - 162 g [employer] Work Phone: LV Mass 2D Index 66.3 g/m2 43 - 95 g/m2 [employer] Work Phone: LV RWT Ratio 0.45 [employer] Work Phone: LVIDd 4.4 cm 3.9 - 5.3 cm [employer] Work Phone: LVIDd Index 1.97 cm/m2 [employer] Work Phone: LVIDs 3.6 cm [employer] Work Phone: LVIDs Index 1.61 cm/m2 [employer] Work Phone: LVOT Area 3.1 cm2 [employer] Work Phone: LVOT Diameter 2.0 cm [employer] Work Phone: LVOT Mean Gradient 2 mmHg [facility] [employer] Work Phone: LVOT Peak Gradient 4 mmHg [facility] [employer] Work Phone: LVOT Peak Velocity 1.0 m/s [facility] [employer] Work Phone: LVOT Stroke Volume Index 24.2 mL/m2 [employer] Work Phone: LVOT SV 54.0 ml [employer] Work Phone: LVOT VTI 17.2 cm [employer] [employer] Work Phone: LVOT:AV VTI Index 0.72 [facility] SEC OURS [employer] Work Phone: LVPWd 1.0 cm Abnormal 0.6 - 0.9 cm [employer] [employer] Work Phone: MV A Velocity 0.78 m/s [employer] [employer] Work Phone: MV Area by VTI 2.3 cm2 [facility] SECOUR S [employer] Work Phone: MV E Velocity 0.66 m/s [employer] Work Phone: MV E Wave Deceleration Time 204.0 ms [employer] Work Phone: MV E/A 0.85 [employer] Work Phone: MV Max Velocity 0.9 m/s [facility] RS [employer] Work Phone: MV Mean Gradient 1 mmHg [facility] [employer] Work Phone: MV Mean Velocity 0.5 m/s [facility] [employer] [employer] Work Phone: MV Peak Gradient 3 mmHg [facility] [employer] Work Phone: MV VTI 23.1 cm [employer] Work Phone: MV:LVOT VTI Index 1.34 [facility] SEC [employer]S [employer] Work Phone: PV Max Velocity 0.9 m/s [facility] SECOU RS [employer] Work Phone: PV Peak Gradient 3 mmHg [facility] SECO [employer] Work Phone: RV Basal Dimension 3.7 cm [facility] SE [employer] [employer] Work Phone: RV Free Wall Peak S' 11 cm/s [facility] ABRAHAM [employer] Work Phone: TAPSE 1.7 cm 1.7 cm [facility] [employer] Work Phone: [facility] [employer] Work Phone: Echo (TTE) complete (PRN con trast/bubble/strain/3D)on 04-22-2023 Left Ventricle: Norm al left ventricular systolic function with a visually estimated EF of 60 - 65%. Left ventricle size is normal. Normal wall thickness. Normal wall motion. Normal diastolic function. Aortic Valve: Trileaflet valve. Image quality is technically difficult. Left Ventricle Normal left ventricular systolic function with a visually estimated EF of 60 - 65%. Left ventricle size is normal. Normal wall thickness. Normal wall motion. Normal diastolic function. Right Ventricle Right ventricle size is normal. Normal systolic function. Left Atrium Left atrium size is normal. Right Atrium Right atrium size is normal. IVC/SVC IVC diameter is greater than 21 mm and decreases greater than 50% during inspiration; therefore the estimated right atrial pressure is intermediate (~8 mmHg). IVC size is normal. Mitral Valve Valve structure is normal. No regurgitation. No stenosis noted. Tricuspid Valve Valve structure is normal. No regurgitation. No stenosis noted. Unable to assess RVSP due to inadequate or insignificant tricuspid regurgitation. Aortic Valve Trileaflet valve. No regurgitation. No stenosis. Pulmonic Valve The pulmonic valve was not well visualized. No regurgitation. No stenosis noted. Ascending Aorta Normal sized aortic root. Pericardium No pericardial effusion. Study Details Image quality: technically difficult. Color flow Doppler was performed and pulse wave and/or continuous wave Doppler was performed. No contrast was given. Wall Scoring Baseline Score Index: 1.00 The left ventricular wall motion is normal. [facility] CV CPACS Radiology Study observation (narrative) [employer] [employer] Heparin Anti-Xaon 04-22-2023 Heparin Anti-Xa 0.33 IU/L Normal [facility] Comment on above: Performed By: #### H EPXA #### [facility] [address] [place] [phone] Hoop Cutter: Romel Clemons MD Heparin Anti-Xa 0.18 IU/L Normal [facility] Comment on above: Performed By: #### B MARK FORD, PT #### [facility] [address] [place] [address] Hoop Cutter: Romel Clemons MD Heparin Anti-Xa 1.12 IU/L Normal [facility] Comment on above: Performed By: #### H EPXA, PT #### [facility] [address] [place] [phone] Hoop Cutter: Romel Clemons MD Troponinon 04-22-2023 Troponin, High Sens 121 ng/L Critically high 0-14 [facility] Comment on above: Result Comment: High Sensitivity Troponin values cannot be compared with other Troponin methodologies. Previous Alert Value Reported Performed By: #### H EPXA, PT #### [facility] [address] [place] [phone] Hoop Cutter: Romel Clemons MD Interpretation and review of laboratory results Abnormal [facility] Troponin I.cardiac High sensitivity method [Mass/Vol] 121 ng/L Critically high 0 - 14 ng/L [facility] Comment on above: High Sensitivity Tro ponin values cannot be compared with other Troponin methodologies. Previous Alert Value Reported [facility] Troponin, High Sens 144 ng/L Critically high 0-14 [facility] Comment on above: Result Comment: High Sensitivity Troponin values cannot be compared with other Troponin methodologies. Previous Alert Value Reported Performed By: #### B LOGAN, CDP, PT #### [facility] [address] [place] [id number] Hoop Cutter: Romel Clemons MD Interpretation and review of laboratory results Abnormal [facility] Troponin I.cardiac High sensitivity method [Mass/Vol] 144 ng/L Critically high 0 - 14 ng/L [facility] Comment on above: High Sensitivity Tro ponin values cannot be compared with other Troponin methodologies. Previous Alert Value Reported [facility] Troponin, High Sens 178 ng/L Critically high 0-14 [facility] Comment on above: Result Comment: High Sensitivity Troponin values cannot be compared with other Troponin methodologies. Previous Alert Value Reported Performed By: #### T ROPI, BMP, CDP, HEPXA #### [employer] [address] [place] [address] Hoop Cutter: Romel Clemons MD Interpretation and review of laboratory results Abnormal [facility] Troponin I.cardiac High sensitivity method [Mass/Vol] 178 ng/L Critically high 0 - 14 ng/L [facility] Comment on above: High Sensitivity Tro ponin values cannot be compared with other Troponin methodologies. Previous Alert Value Reported [facility] Troponin, High Sens 281 ng/L Critically high 0-14 [facility] Comment on above: Result Comment: High Sensitivity Troponin values cannot be compared with other Troponin methodologies. Previous Alert Value Reported Performed By: #### B MP, CDP, PT #### [employer] [address] [place] [address] Hoop Cutter: Romel Clemons MD Interpretation and review of laboratory results Abnormal [facility] Troponin I.cardiac High sensitivity method [Mass/Vol] 281 ng/L Critically high 0 - 14 ng/L [facility] Comment on above: High Sensitivity Tro ponin values cannot be compared with other Troponin methodologies. Previous Alert Value Reported [facility] [employer] Vascular duplex lower extrem ity venous bilateralOrdered By: Bakari Richardson on 04-22-2023 Body surface area Derived from formula 2.29 m2 [facility] [employer] Work Phone: [facility] [employer] Work Phone: Vascular duplex lower extrem ity venous bilateralon 04-22-2023 Acute deep vein thrombosis in the right common femoral vein. Acute deep vein thrombosis in the right proximal femoral vein Acute deep vein thrombosis in the right middle femoral vein. Acute deep vein thrombosis in the right distal femoral vein. Acute deep vein thrombosis in the left popliteal vein. Acute deep vein thrombosis in the left tibioperoneal trunk. Right Lower Venous External Iliac Vein: Patent, compressible. Common Femoral Vein: Acute thrombus. Partially compressible. Greater Saphenous Vein: Vessel, thigh, calf and ankle patent, compressible Saphenofemoral Junction: Patent, compressible. Proximal Femoral Vein: Acute thrombus. Noncompressible. Middle Femoral Vein: Acute thrombus. Noncompressible. Distal Femoral Vein: Acute thrombus. Noncompressible. Popliteal Vein: Noncompressible. Gastrocnemius Vein: Patent, compressible and not well visualized. Posterior Tibial Vein: Not well visualized. The peroneal veins or small saphenous vein could not be visualized due to edema and positioning. Left Lower Venous Common Femoral Vein: Patent, normal phasicity, spontaneous, normal augmentation, compressible. Greater Saphenous Vein: Vessel patent, compressible. Femoral Vein: Patent, normal phasicity, spontaneous, normal augmentation, compressible. Popliteal Vein: Acute thrombus. Gastrocnemius Vein: Patent, compressible and not well visualized. Posterior Tibial Vein: Patent, compressible. Tibioperoneal Trunk: Acute thrombus. [employer] Details A chung scale, color Doppler imaging and spectral Doppler analysis ultrasound was performed. During the study longitudinal and transverse views were obtained. Pulsed wave doppler was performed. Overall the study quality was limited. Study was technically difficult due to: bedside exam, diffuse subcutaneous edema and edema. [facility] CV CPACS Radiology Study observation (narrative) [facility] APTTon 04-21-2023 aPTT Coag (Bld) [Time] s Critically high 23.0-36.5 [facility] Comment on above: Result Comment: IV Heparin Therapy Range: 66.0-92.0 sec Performed By: #### B MP, CDP, PT #### [employer] [address] [place] [id number] Hoop Cutter: Romel Clemons MD APTT Critically high [facility] Comment on above: IV Heparin Therapy Range: 66.0-92.0 sec Interpretation and review of laboratory results Abnormal [facility] Anti-Xa, Unfractionated Hepa rinon 04-21-2023 Anti-XA Unfrac Heparin 1.12 IU/L [facility] Anti-XA Unfrac Heparin 0.65 IU/L [facility] Brain Natri. Peptideon 04-21 Natriuretic peptide B (Bld) [Mass/Vol] 367 pg/mL High <300 [facility] Comment on above: Result Comment: An age-independent cutoff point of 300 pg/ml has a 98% negative predictive value excluding acute heart failure. Performed By: #### H EPXA, PT #### [facility] [employer] [address] [place] [address] Hoop Cutter: Romel Clemons MD Brain Natriuretic Peptideon 04-21-2023 Interpretation and review of laboratory results Abnormal [facility] Natriuretic peptide B (Bld) [Mass/Vol] 367 pg/mL High NINF - 300 pg/mL [facility] Comment on above: An age-independent cutoff point of 300 pg/ml has a 98% negative predictive value excluding acute heart failure. [facility] CBC with Auto Differentialon 04-21-2023 Basophils (Bld) [#/Vol] 0.00 10*3/uL [facility] Basophils/100 WBC (Bld) 0 % 0 - 2 % [facility] Eosinophils (Bld) [#/Vol] 0.00 10*3/uL [facility] Eosinophils/100 WBC (Bld) 0 % Low 1 - 4 % [facility] Erythrocyte distribution width (RBC) [Ratio] 14.2 % 11.8 - 14.4 % [facility] Hematocrit (Bld) [Volume fraction] 30.2 % Low 36.3 - 47.1 % [facility] Hemoglobin (Bld) [Mass/Vol] 9.4 g/dL Low 11.9 - 15.1 g/dL [facility] Immature granulocytes (Bld) [#/Vol] 0.08 10*3/uL [facility] Immature granulocytes/100 WBC (Bld) 1 % High 0 [facility] Interpretation and review of laboratory results Abnormal [facility] Lymphocytes/100 WBC (Bld) 5 % Low 24 - 44 % [facility] Lymphocytes/100 WBC (Bld) 0.40 % Low [facility] MCH (RBC) [Entitic mass] 30.2 pg 25.2 - 33.5 pg [facility] MCHC (RBC) [Mass/Vol] 31.1 g/dL 28.4 - 34.8 g/dL [facility] MCV (RBC) [Entitic vol] 97.1 fL 82.6 - 102.9 fL [facility] Monocytes/100 WBC (Bld) 6 % 1 - 7 % [facility] Monocytes/100 WBC (Bld) 0.48 % [facility] Morphology Maciej (Bld) [Interp] Normal [facility] Neutrophils/100 WBC (Bld) 88 % High 36 - 66 % [facility] Nucleated RBC/100 WBC (Bld) [Ratio] 0.0 % 0.0 per 100 WBC [facility] Platelet mean volume (Bld) [Entitic vol] 9.3 fL 8.1 - 13.5 fL [facility] Platelets (Bld) [#/Vol] 284 10*3/uL [facility] RBC (Bld) [#/Vol] 3.11 10*6/uL Low 3.95 - 5.1 1 m/uL [facility] Segmented neutrophils/100 WBC (Bld) 7.04 % [facility] WBC other (Bld) [#/Vol] 8.0 [facility] CBC with Diffon 04-21-2023 Abs. Basophil 0.00 k/uL Normal 0.0-0.2 [facility] Comment on above: Performed By: #### H EPXA, PT #### [employer] [address] [place] [address] [phone] Hoop Cutter: Romel Clemons MD Abs.Imm.Granulocyte 0.08 k/uL Normal 0.00-0.30 [facility] Comment on above: Performed By: #### H EPXA, PT #### [employer] [address] [place] [address] [phone] Hoop Cutter: Romel Clemons MD Abs.Neutrophil (Seg) 7.04 k/uL Normal 1.8-7.7 [facility] Comment on above: Performed By: #### H EPXA, PT #### [facility] [address] [place] [phone] Hoop Cutter: Romel Clemons MD Basophils/100 WBC (Bld) 0 % Normal 0-2 [facility] Comment on above: Performed By: #### H EPXA, PT #### [facility] [address] [place] [address] Hoop Cutter: Romel Clemons MD Eosinophils (Bld) [#/Vol] 0.00 10*3/uL Normal 0.0-0.4 [facility] Comment on above: Performed By: #### H EPXA, PT #### [address] [address] Hoop Cutter: Romel Clemons MD Eosinophils/100 WBC (Bld) 0 % Low 1-4 [facility] Comment on above: Performed By: #### H EPXA, PT #### [address] [address] Hoop Cutter: Romel Clemons MD Immature granulocytes/100 WBC (Bld) 1 % High 0 [facility] Comment on above: Performed By: #### H EPXA, PT #### [facility] [address] [place] [phone] Hoop Cutter: Romel Clemons MD Lymphocytes (Bld) [#/Vol] 0.40 10*3/uL Low 1.0-4.8 [facility] Comment on above: Performed By: #### H EPXA, PT #### [facility] [address] [place] [address] Hoop Cutter: Romel Clemons MD Lymphocytes/100 WBC (Bld) 5 % Low 24-44 [facility] Comment on above: Performed By: #### H EPXA, PT #### [address] [address] Hoop Cutter: Romel Clemons MD Monocytes (Bld) [#/Vol] 0.48 10*3/uL Normal 0.1-0.8 [facility] Comment on above: Performed By: #### H EPXA, PT #### [address] [address] Hoop Cutter: Romel Clemons MD Monocytes/100 WBC (Bld) 6 % Normal 1-7 [facility] Comment on above: Performed By: #### H EPXA, PT #### [address] [address] Hoop Cutter: Romel Clemons MD Morphology Maciej (Bld) [Interp] Normal Normal [facility] Comment on above: Performed By: #### H EPXA, PT #### [address] [address] Hoop Cutter: Romel Clemons MD Neutrophil (Seg) 88 % High 36-66 [facility] Comment on above: Performed By: #### H EPXA, PT #### [address] [address] Hoop Cutter: Romel Clemons MD Erythrocyte distribution width (RBC) [Ratio] 14.2 % Normal 11.8-14.4 [facility] Comment on above: Performed By: #### H EPXA, PT #### [address] [address] Hoop Cutter: Romel Clemons MD Hematocrit (Bld) [Volume fraction] 30.2 % Low 36.3-47.1 [facility] Comment on above: Performed By: #### H EPXA, PT #### [address] [address] Hoop Cutter: Romel Clemons MD Hemoglobin (Bld) [Mass/Vol] 9.4 g/dL Low 11.9-15.1 [facility] Comment on above: Performed By: #### H EPXA, PT #### [address] [address] Hoop Cutter: Romel Clemons MD MCH (RBC) [Entitic mass] 30.2 pg Normal 25.2-33.5 [facility] Comment on above: Performed By: #### H EPXA, PT #### [address] [address] Hoop Cutter: Romel Clemons MD MCHC (RBC) [Mass/Vol] 31.1 g/dL Normal 28.4-34.8 [facility] Comment on above: Performed By: #### H EPXA, PT #### [address] [address] Hoop Cutter: Romel Clemons MD MCV (RBC) [Entitic vol] 97.1 fL Normal 82.6-102.9 [facility] Comment on above: Performed By: #### H EPXA, PT #### [address] [address] Hoop Cutter: Romel Clemons MD NRBC Automated 0.0 per 100 WBC Normal 0.0 [facility] Comment on above: Performed By: #### H EPXA, PT #### [facility] [employer] [address] [place] [address] Hoop Cutter: Romel Clemons MD Platelet mean volume (Bld) [Entitic vol] 9.3 fL Normal 8.1-13.5 [facility] Comment on above: Performed By: #### H EPXA, PT #### [facility] [employer] [address] [place] [address] Hoop Cutter: Romel Clemons MD Platelets (Bld) [#/Vol] 284 10*3/uL Normal 138-453 [facility] Comment on above: Performed By: #### H EPXA, PT #### [facility] [employer] [address] [place] [address] Hoop Cutter: Romel Clemons MD RBC (Bld) [#/Vol] 3.11 10*6/uL Low 3.95-5.11 [facility] Comment on above: Performed By: #### H EPXA, PT #### [address] [address] Hoop Cutter: Romel Clemons MD WBC (Bld) [#/Vol] 8.0 10*3/uL Normal 3.5-11.3 [facility] Comment on above: Performed By: #### H EPXA, PT #### [facility] [employer] [address] [place] [address] Hoop Cutter: Romel Clemons MD Cath hemo interfaceon 2023 Body surface area Derived from formula 2.29 m2 [facility] Metabolic Profon 8 Albumin [Mass/Vol] 3.5 g/dL Normal 3.5-5.2 [facility] Comment on above: Performed By: #### H EPXA, PT #### [facility] [employer] [address] [place] [address] Hoop Cutter: Romel Clemons MD Albumin/Glob Ratio 1.4 Normal 1.0-2.5 [facility] Comment on above: Performed By: #### H EPXA, PT #### [facility] [employer] [address] [place] [address] Hoop Cutter: Romel Clemons MD Alkaline Phos 118 U/L High 35-104 [facility] Comment on above: Performed By: #### H EPXA, PT #### [employer] [address] [place] [address] Hoop Cutter: Romel Clemons MD ALT [Catalytic activity/Vol] 20 U/L Normal 5-33 [facility] Comment on above: Performed By: #### H EPXA, PT #### [facility] [employer] [address] [place] [address] Hoop Cutter: Romel Clemons MD Anion gap [Moles/Vol] 10 mmol/L Normal 9-17 [facility] Comment on above: Performed By: #### H EPXA, PT #### [facility] [employer] [address] [place] [address] Hoop Cutter: Romel Clemons MD AST [Catalytic activity/Vol] 28 U/L Normal <32 [facility] Comment on above: Performed By: #### H EPXA, PT #### [facility] [employer] [address] [place] [address] Hoop Cutter: Romel Clemons MD Bilirubin [Mass/Vol] 0.3 mg/dL Normal 0.3-1.2 [facility] Comment on above: Performed By: #### H EPXA, PT #### [facility] [employer] [address] [place] [address] Hoop Cutter: Romel Clemons MD Calcium [Mass/Vol] 8.4 mg/dL Low 8.6-10.4 [facility] Comment on above: Performed By: #### H EPXA, PT #### [facility] [employer] [address] [place] [address] Hoop Cutter: Romel Clemons MD Chloride [Moles/Vol] 99 mmol/L Normal 98-107 [facility] Comment on above: Performed By: #### H EPXA, PT #### [facility] [employer] [address] [place] [address] Hoop Cutter: Romel Clemons MD CO2 [Moles/Vol] 25 mmol/L Normal 20-31 [facility] Comment on above: Performed By: #### H EPXA, PT #### [facility] [address] [place] [address] Hoop Cutter: Romel Clemons MD Creatinine [Mass/Vol] 0.7 mg/dL Normal 0.5-0.9 [facility] Comment on above: Performed By: #### H EPXA, PT #### [facility] [employer] [address] [place] [address] Hoop Cutter: Romel Clemons MD GFR/1.73 sq M.predicted among non-blacks MDRD (S/P/Bld) [Vol rate/Area] mL/min/{1.73_m2} Normal >60 [facility] Comment on above: Result Comment: These results are not intended for use in patients <18 years of age. eGFR results are calculated without a race factor using the 2020 CKD-EPI equation. Careful clinical correlation is recommended, particularly when comparing to results calculated using previous equations. The CKD-EPI equation is less accurate in patients with extremes of muscle mass, extra-renal metabolism of creatine, excessive creatine ingestion, or following therapy that affects renal tubular secretion. Performed By: #### H EPXA, PT #### [facility] [employer] [address] [place] [address] Hoop Cutter: Romel Clemons MD Glucose [Mass/Vol] 145 mg/dL High 70-99 [facility] Comment on above: Performed By: #### H EPXA, PT #### [facility] [employer] [address] [place] [address] Hoop Cutter: Romel Clemons MD Potassium [Moles/Vol] 4.1 mmol/L Normal 3.7-5.3 [facility] Comment on above: Performed By: #### H EPXA, PT #### [facility] [employer] [address] [place] [address] Hoop Cutter: Romel Clemons MD Protein [Mass/Vol] 6.0 g/dL Low 6.4-8.3 [facility] Comment on above: Performed By: #### H EPXA, PT #### [facility] [address] [place], [place] [phone] Hoop Cutter: Romel Clemons MD Sodium [Moles/Vol] 134 mmol/L Low 135-144 [facility] Comment on above: Performed By: #### H EPXA, PT #### [facility] [address] [place], [place] [phone] Hoop Cutter: Romel Clemons MD Urea nitrogen [Mass/Vol] 14 mg/dL Normal 6-20 [facility] Comment on above: Performed By: #### H EPXA, PT #### [facility] [address] [place], [place] [phone] Hoop Cutter: Romel Clemons MD Comprehensive Metabolic Pane [facility] 04-21-2023 Albumin [Mass/Vol] 3.5 g/dL 3.5 - 5.2 g/dL [facility] Albumin/Globulin [Mass ratio] 1.4 {ratio} 1.0 - 2.5 [facility] ALP [Catalytic activity/Vol] 118 U/L High 35 - 104 U/L [facility] ALT [Catalytic activity/Vol] 20 U/L 5 - 33 U/L [facility] Anion gap [Moles/Vol] 10 mmol/L 9 - 17 mmol/L [facility] AST [Catalytic activity/Vol] 28 U/L NINF - 32 U/L [facility] Bilirubin [Mass/Vol] 0.3 mg/dL 0.3 - 1 .2 mg/dL [facility] Calcium [Mass/Vol] 8.4 mg/dL Low 8.6 - 10. 4 mg/dL [facility] Chloride [Moles/Vol] 99 mmol/L 98 - 10 7 mmol/L [facility] CO2 [Moles/Vol] 25 mmol/L 20 - 31 mmol/L [facility] Creatinine [Mass/Vol] 0.7 mg/dL 0.5 - 0.9 mg/dL [facility] GFR/1.73 sq M.predicted MDRD (S/P/Bld) [Vol rate/Area] - PINF [facility] Comment on above: These results are not intended for use in patients <18 years of age. eGFR results are calculated without a race factor using the 2020 CKD-EPI equation. Careful clinical correlation is recommended, particularly when comparing to results calculated using previous equations. The CKD-EPI equation is less accurate in patients with extremes of muscle mass, extra-renal metabolism of creatine, excessive creatine ingestion, or following therapy that affects renal tubular secretion. Glucose [Mass/Vol] 145 mg/dL High 70 - 99 mg/dL [facility] Interpretation and review of laboratory results Abnormal [facility] Potassium [Moles/Vol] 4.1 mmol/L 3.7 - 5.3 mmol/L [facility] Protein [Mass/Vol] 6.0 g/dL Low 6.4 - 8.3 g/dL [facility] Sodium [Moles/Vol] 134 mmol/L Low 135 - 144 mmol/L [facility] Urea nitrogen [Mass/Vol] 14 mg/dL 6 - 20 mg/dL [facility] Heparin Anti-Xaon 04-21-2023 Heparin Anti-Xa 0.65 IU/L Normal [facility] Comment on above: Performed By: #### H EPXA, PT #### [employer] [address] [place] [address] [phone] Hoop Cutter: Romel Clemons MD MRSA, DNA, Nasalon Specimen Description .NASAL SWAB Normal [facility] Comment on above: Performed By: #### H EPXA, PT #### [employer] [address] [place], [place] [phone] Hoop Cutter: Romel Clemons MD PTon 04-21-2023 INR Coag (PPP) [Relative time] 1.4 {INR} Normal [facility] Comment on above: Result Comment: Therapeutic Range: Moderate Anticoagulant Intensity: INR = 2.0-3.0 High Anticoagulant Intensity: INR = 2.5-3.5 Performed By: #### H EPXA, PT #### [employer] [address] [place] [address] Hoop Cutter: Romel Clemons MD PT Coag (PPP) [Time] 16.8 s High 11.7-14.9 [facility] Comment on above: Performed By: #### H EPXA, PT #### [facility] [address] [place], [place] [phone] Hoop Cutter: Romel Clemons MD Protime-INRon 04-21-2023 INR Coag (PPP) [Relative time] 1.4 {INR} [facility] Comment on above: Therapeutic Range: Moderate Anticoagulant Intensity: INR = 2.0-3.0 High Anticoagulant Intensity: INR = 2.5-3.5 Interpretation and review of laboratory results Abnormal [facility] PT Coag (PPP) [Time] 16.8 s High [facility] Troponinon 04-21-2023 Troponin, High Sens 401 ng/L Critically high 0-14 [facility] Comment on above: Result Comment: High Sensitivity Troponin values cannot be compared with other Troponin methodologies. Previous Alert Value Reported Performed By: #### B MP, CDP, PT #### [employer] [address] [place] [address] [phone] Hoop Cutter: Romel Clemons MD Troponin, High Sens 472 ng/L Critically high 0-14 [facility] Comment on above: Result Comment: High Sensitivity Troponin values cannot be compared with other Troponin methodologies. Previous Alert Value Reported Performed By: #### H EPXA #### [employer] [address] [place], [place] [phone] Hoop Cutter: Romel Clemons MD Interpretation and review of laboratory results Abnormal [facility] Troponin I.cardiac High sensitivity method [Mass/Vol] 401 ng/L Critically high 0 - 14 ng/L [facility] Comment on above: High Sensitivity Tro ponin values cannot be compared with other Troponin methodologies. Previous Alert Value Reported [employer] Troponin, High Sens 573 ng/L Critically high 0-14 [facility] Comment on above: Result Comment: High Sensitivity Troponin values cannot be compared with other Troponin methodologies. Performed By: #### H EPXA, PT #### [employer] [address] [place] [address] Hoop Cutter: Romel Clemons MD Interpretation and review of laboratory results Abnormal [employer] Troponin I.cardiac High sensitivity method [Mass/Vol] 472 ng/L Critically high 0 - 14 ng/L [facility] Comment on above: High Sensitivity Tro ponin values cannot be compared with other Troponin methodologies. Previous Alert Value Reported [employer] Interpretation and review of laboratory results Abnormal [facility] [employer] Troponin I.cardiac High sensitivity method [Mass/Vol] 573 ng/L Critically high 0 - 14 ng/L [facility] [employer] Comment on above: High Sensitivity Tro ponin values cannot be compared with other Troponin methodologies. [employer] Inpatient Clinical Summaryon 04-14-2023 Inpatient Clinical Summary [place] [id number] Clinical Summary Person Information: Name: ELIZABETH SÁNCHEZ Age: 57 Years : 1965 Sex: Female PCP: CASSIE LORENZ MD Marital Status: Single Race: White Ethnicity: Non- or Language: Scottish Visit Id: Visit Reason: RIGHT KNEE OA Speciality: Acuity: Enc Type: Inpatient Med Service: Medical Arrival: 04/05/2023 06:49:48 Discharge: 04/08/2023 16:15:00 Dispo Type: SNF w/ Medicare Cert Address: [address] [place] [address] [id number] Provider Notes: Patient: ELIZABETH SÁNCHEZ Age: 57 years Sex: Female : 1965 Associated Diagnoses: None Author: Nola Zuniga DO Results Review General results Discharge Information Discharge Summary Information: Admit Date/Time: 04/05/23 06:49 Discharge Date/Time: 04/08/23 07:31 Admitting Physician: Nola Zuniga DO Referring Physician for Admission: Nola Zuniga DO Consulting Physicians: Radha SHIRLEY Admitting Diagnoses: Discharge Diagnoses: Unilateral primary osteoarthritis, right knee Epilepsy, unspecified, not intractable, without status epilepticus Presence of right artificial knee joint Gastro-esophageal reflux disease without esophagitis Prescription and Home Meds: acetaminophen-oxycodone (Percocet 5 mg-325 mg oral tablet) See Instructions, Take one to two oral every 4 hours as needed for knee surgical pain., 50 tab(s), 0 Refill(s) aspirin (aspirin 325 mg Tab) 325 mg, 1 tab(s), Oral, Daily, for 30 day(s), Daily for 4 weeks for blood clot prevention., 30 tab(s), 0 Refill(s) calcium carbonate (Oyster Shell Calcium 1250 mg (500 mg elemental calcium) oral tablet) 1,250 mg, 1 tab(s), Oral, Daily, 0 Refill(s) carbamazepine (Tegretol XR 200 mg oral tablet, extended release) 200 mg, 1 tab(s), Oral, Daily, 0 Refill(s) cetirizine (cetirizine 10 mg Tab) 10 mg, 1 tab(s), Oral, Daily, 0 Refill(s) cholecalciferol (cholecalciferol 2000 intl units oral tablet (Vitamin D3)) 50 mcg, 1 tab(s), Oral, Daily, 0 Refill(s) docusate (Colace 100 mg Cap) 100 mg, 1 cap(s), Oral, BID, 20 cap(s), 0 Refill(s) famotidine (famotidine 20 mg Tab) 20 mg, 1 tab(s), Oral, BID, 0 Refill(s) hydrOXYzine (hydrOXYzine hydrochloride 25 mg Tab) 25 mg, 1 tab(s), Oral, Bedtime, PRN: as needed for itching, 30 tab(s), 0 Refill(s) montelukast (montelukast 10 mg Tab) 10 mg, 1 tab(s), Oral, Daily, 0 Refill(s) potassium chloride (Potassium Chloride (Qxv-Tjif-Bpu 10) 10 mEq oral tablet, extended release) 10 mEq, 1 tab(s), Oral, Daily, 0 Refill(s) sertraline (sertraline 25 mg Tab) 25 mg, 1 tab(s), Oral, Daily, 0 Refill(s) Stable course. D/C [place]. ASA 325mg 4 weeks for DVTp. Mepilex. Reg diet. F/u 4 weeks. Diagnosis: 1:Status post total right knee replacement; 2:Osteoarthritis of right knee; 3:Seizure disorder; 4:GERD (gastroesophageal reflux disease); 5:Obesity; 6:On deep vein thrombosis (DVT) prophylaxis Problems No Problems Documented Smoking Status: Functional Status: Sensory Deficits: History of Falls: Mobility Assistance Prior to Admission: ADLs: Minimal assistance Current Level of Assistance for Self-Care/Mobility: Cognitive Status: Allergies Dilantin (Rash) Measurements: Height: Weight: 114.9 kg Blood Pressure: 130 mmHg / 72 mmHg BMI: Procedures Total knee arthroplasty (04/05/2023) Immunizations No Immunizations Documented This Visit Final Med List: aspirin (aspirin 325 mg Tab) 1 Tablets By Mouth every day for 30 Days. Daily for 4 weeks for blood clot prevention.. Refills: 0. calcium carbonate (Oyster Shell Calcium 1250 mg (500 mg elemental calcium) oral tablet) 1 Tablets By Mouth every day. carbamazepine (Tegretol XR 200 mg oral tablet, extended release) 1 Tablets By Mouth 3 times a day. cetirizine (cetirizine 10 mg Tab) 1 Tablets By Mouth every day. cholecalciferol (cholecalciferol 2000 intl units oral tablet (Vitamin D3)) 1 Tablets By Mouth every day. docusate (Colace 100 mg Cap) 1 Capsules By Mouth 2 times a day. Refills: 0. famotidine (famotidine 20 mg Tab) 1 Tablets By Mouth 2 times a day. montelukast (montelukast 10 mg Tab) 1 Tablets By Mouth every day. potassium chloride (Potassium Chloride (Lys-Dnrp-Qlz 10) 10 mEq oral tablet, extended release) 1 Tablets By Mouth every day. sertraline (sertraline 25 mg Tab) 1 Tablets By Mouth every day. Care Team Members: Attending Physician: Nola uZniga DO Consulting Physician: Radha SHIRLEY Referring Physician: Nola Zuniga DO Follow up: With: Address: When: CASSIE LORENZ [address] [place] [phone] Business (1) With: Address: When: Nola Zuniga [address] [place] [phone] Business (1) 05/05/2023 9:30 AM Comments: Keep sched (more content not included)... Normal [facility] Inpatient Patient Summaryon 04-14-2023 Inpatient Patient Summary [address] [address] Patient Discharge Instructions PERSON INFORMATION Name: ELIZABETH SÁNCHEZ Date of : 1965 Current Date: 04/14/2023 11:21:50 PHYSICIANS Admitting Physician: Nola Zuniga DO Primary Care Physician: CASSIE LORENZ MD PCP Comment: Discharge Diagnosis: 1:Status post total right knee replacement; 2:Osteoarthritis of right knee; 3:Seizure disorder; 4:GERD (gastroesophageal reflux disease); 5:Obesity; 6:On deep vein thrombosis (DVT) prophylaxis Condition at Discharge: Stable ELIZABETH SÁNCHEZ has been given the following list of follow-up instructions, prescriptions, and patient education materials: PATIENT FOLLOW-UP INFORMATION Diet: Regular, Drink liquids and eat a light meal Discharge Activity: Activity as tolerated Discharge Restrictions: No driving Wound Care Instructions: Remove dressing as instructed Remove Your Dressing In 10 Days Call Your Doctor For: Persistent or heavy bleeding, Temperature above 101.5 degrees, Redness, swelling, or pus at operative site, Severe pain at the operative site, Persistent vomiting IF UNABLE TO CONTACT YOUR PHYSICIAN AND YOU FEEL IT IS AN EMERGENCY, GO TO THE NEAREST EMERGENCY ROOM OR CALL 911 Home Treatment: Devices/Equipment: None Special Services: Additional Instructions: Meriplex dressing per Dr. Ojeda's orders F/U w/ Dr. Zuniga PT/OT - WBAT Primary Care Physician to provide the following pending test results: None Follow up: With: Address: When: CASSIE LORENZ [address] [place] [phone] Business (1) With: Address: When: Nola Zuniga [address] [place] [phone] Business (1) 05/05/2023 9:30 AM Comments: Keep scheduled appointment *ARVIND OFFICE* In the event that this physician does not participate in your insurance network, please consult with your insurance company to find a nearby participating provider. Comment: KIMBERLEY Tovar PENNY, have received the attached patient education materials/instructions and have verbalized understanding: Patient Signature Date Clinican/Nurse Signature _ Date HERE ARE THE MEDICATION CHANGES THAT OCCURRED DURING YOUR HOSPITAL STAY New Medications [id number], [address], [place] [id number], [phone] aspirin (aspirin 325 mg Tab) 1 Tablets By Mouth every day for 30 Days. Daily for 4 weeks for blood clot prevention.. Refills: 0. Last Dose: __Next Dose: __ Medications to Continue Taking That Have Changed Other Medications START: carbamazepine (Tegretol XR 200 mg oral tablet, extended release) 1 Tablets By Mouth 3 times a day. Last Dose: __Next Dose: __ STOP: carbamazepine (Tegretol XR 200 mg oral tablet, extended release) 1 Tablets By Mouth every day. Medications to Continue with No Changes [id number], [address], [place] [id number], [phone] docusate (Colace 100 mg Cap) 1 Capsules By Mouth 2 times a day. Refills: 0. Last Dose: __Next Dose: __ Other Medications calcium carbonate (Oyster Shell Calcium 1250 mg (500 mg elemental calcium) oral tablet) 1 Tablets By Mouth every day. Last Dose: __Next Dose: __ cetirizine (cetirizine 10 mg Tab) 1 Tablets By Mouth every day. Last Dose: __Next Dose: __ cholecalciferol (cholecalciferol 2000 intl units oral tablet (Vitamin D3)) 1 Tablets By Mouth every day. Last Dose: __Next Dose: __ famotidine (famotidine 20 mg Tab) 1 Tablets By Mouth 2 times a day. Last Dose: __Next Dose: __ montelukast (montelukast 10 mg Tab) 1 Tablets By Mouth every day. Last Dose: __Next Dose: __ potassium chloride (Potassium Chloride (Sxx-Jzgd-Mus 10) 10 mEq oral tablet, extended release) 1 Tablets By Mouth every day. Last Dose: __Next Dose: __ sertraline (sertraline 25 mg Tab) 1 Tablets By Mouth every day. Last Dose: __Next Dose: __ No Longer Take the Following Medications acetaminophen-oxycodone (Percocet 5 mg-325 mg oral tablet) Take one to two oral every 4 hours as needed for knee surgical pain.. Refills: 0. hydrOXYzine (hydrOXYzine hydrochloride 25 mg Tab) 1 Tablets By Mouth at bedtime as needed as needed for itching. primidone (primidone 50 mg Tab) 1 Tablets By Mouth once a day (at bedtime). Comment: MEDICATION LIST PROVIDED FOR YOU IS A LIST OF YOUR CURRENT MEDICATIONS. PLEASE CARRY THIS WITH YOU AT ALL TIMES. aspirin (aspirin 325 mg Tab) 1 Tablets By Mouth every day for 30 Days. (more content not included)... Normal [facility] IntraOperative Documentson 0 04-12-2023 IntraOperative Documents [id number] TIFF Normal [facility] Transfer Documentson 024 Transfer Documents [id number] TIFF Normal [facility] BUNon 04-08-2023 Urea nitrogen [Mass/Vol] 13 mg/dL Normal 5-21 [facility] Comment on above: Performed By: #### 2 [id number], [id number], [id number], [id number], [id number] ####[facility] [id number] [place] [address] CBC w/ Auto Diffon Basophil Absolute 0.0 E9/L Normal 0.0-0.2 [facility] Comment on above: Performed By: #### 2 [id number], [id number], [id number], [id number], [id number] ####[facility] [id number] [place] [address] Basophils/100 WBC (Bld) 0.1 % Normal 0.0-2.0 [facility] Comment on above: Performed By: #### 2 593729, 8342823, 9049321, 56470093, 8767782 ####[facility] [address] [place] [address] Eos Absolute 0.0 E9/L Normal 0.0-0.5 [facility] Comment on above: Performed By: #### 2 731132, 9248794, 1333614, 31370432, 6158542 ####[address] [place] [address] Eosinophils/100 WBC (Bld) 0.0 % Normal 0.0-8.0 [facility] Comment on above: Performed By: #### 2 810663, 1251212, 1378892, 06572923, 0193719 ####[address] [address] Erythrocyte distribution width (RBC) [Ratio] 13.3 % Normal 10.9-14.2 [facility] Comment on above: Performed By: #### 2 592663, 4187369, 9362371, 79120231, 5212901 ####[address] [address] Hematocrit (Bld) [Volume fraction] 29.0 % Low 34.0-46.0 [facility] Comment on above: Performed By: #### 2 385828, 5994322, 8618700, 17023917, 4782363 ####[address] [address] Hemoglobin (Bld) [Mass/Vol] 9.5 g/dL Low 12.0-16.0 [facility] Comment on above: Performed By: #### 2 163032, 8365362, 2361008, 03778628, 4004745 ####[facility] [address] [place] [address] Lymph Absolute 1.0 E9/L Normal 1.0-4.0 [facility] Comment on above: Performed By: #### 2 964902, 5379755, 7120092, 96001339, 8014802 ####[facility] [address] [place] [address] Lymphocytes/100 WBC (Bld) 15.4 % Normal 14.0-50.0 [facility] Comment on above: Performed By: #### 2 145745, 1898053, 3896539, 61913393, 0295192 ####[address] MCH (RBC) [Entitic mass] 30.6 pg Normal 27.0-34.0 [facility] Comment on above: Performed By: #### 2 258530, 6874756, 4480946, 60415461, 9417415 ####[address] MCHC (RBC) [Mass/Vol] 33.2 g/dL Normal 31.4-36.0 [facility] Comment on above: Performed By: #### 2 626257, 3154764, 3324133, 59804825, 7958640 ####[address] MCV (RBC) [Entitic vol] 92.3 fL Normal 80.0-100.0 [facility] Comment on above: Performed By: #### 2 869302, 9176935, 1233808, 77116969, 9954814 ####[address] [place] Absolute 0.6 E9/L Normal 0.2-1.0 [facility] Comment on above: Performed By: #### 2 228235, 5864811, 1526229, 92887642, 6734590 ####[address] Monocytes/100 WBC (Bld) 9.8 % Normal 4.0-14.0 [facility] Comment on above: Performed By: #### 2 216348, 9958579, 1468987, 50614453, 1939515 ####[address] [address] Neutro Absolute 4.6 E9/L Normal 2.0-7.5 [facility] Comment on above: Performed By: #### 2 815356, 2765922, 3510365, 04403197, 9218993 ####[facility] [address] [place] [address] Neutro Auto 74.7 % Normal 36.0-75.0 [facility] Comment on above: Performed By: #### 2 570186, 4256245, 7897158, 00851599, 1054294 ####[facility] [address] [place] [address] Platelet 165.0 E9/L Normal 150.0-500.0 [facility] Comment on above: Performed By: #### 2 586008, 2085119, 0143135, 12461997, 4353474 ####[facility] [address] [place] [address] Platelet mean volume (Bld) [Entitic vol] 8.4 fL Normal 6.4-10.8 [facility] Comment on above: Performed By: #### 2 169548, 5636439, 1875559, 45360539, 2023659 ####[facility] [address] [place] [address] RBC 3.1 E12/L Low 4.3-5.9 [facility] Comment on above: Performed By: #### 2 903582, 3519922, 2349075, 24138252, 9321922 ####[facility] [address] [place] [address] WBC 6.2 E9/L Normal 4.0-11.0 [facility] Comment on above: Performed By: #### 2 948902, 8776102, 1846055, 30977142, 3553224 ####[facility] [address] [place] [address] Creatinineon 04-08-2023 Creatinine [Mass/Vol] 0.7 mg/dL Normal 0.5-1.3 [facility] Comment on above: Performed By: #### 2 325883, 5715096, 1552419, 41135148, 9787761 ####[address] [address] Discharge Note-Nursingon Discharge Note-Nursing ELIZABETH SÁNCHEZ :1965 Visit Date:04/05/2023 Inpatient Discharge Instructions Your Care Team Admitting Physician - Nola Zuniga DO Consulting Physician - Radha SHIRLEY Referring Physician - Nola Zuniga DO Reason for Your Visit RIGHT KNEE OA Your Diagnosis Status post total right knee replacement Osteoarthritis of right knee Seizure disorder GERD (gastroesophageal reflux disease) Obesity On deep vein thrombosis (DVT) prophylaxis Tests Performed ABO/Rh Antibody Screen Automated Diff BUN CBC w/ Auto Diff Creatinine eGFR Lytes UA With Cult Reflex XR Knee 1 or 2 Views Right This Is Your Medications List acetaminophen-oxycodone (Percocet 5 mg-325 mg oral tablet) aspirin (aspirin 325 mg Tab) calcium carbonate (Oyster Shell Calcium 1250 mg (500 mg elemental calcium) oral tablet) carbamazepine (Tegretol XR 200 mg oral tablet, extended release) cetirizine (cetirizine 10 mg Tab) cholecalciferol (cholecalciferol 2000 intl units oral tablet (Vitamin D3)) docusate (Colace 100 mg Cap) famotidine (famotidine 20 mg Tab) montelukast (montelukast 10 mg Tab) potassium chloride (Potassium Chloride (Wnd-Umfq-Yws 10) 10 mEq oral tablet, extended release) sertraline (sertraline 25 mg Tab) [Image Removed: STOP]Stop taking these medications hydrOXYzine (hydrOXYzine hydrochloride 25 mg Tab) primidone (primidone 50 mg Tab) Procedure History Total knee arthroplasty (04/05/2023), History of tonsillectomy. Discharge Vitals Temperature (Oral) 36.7 ?C Heart Rate (Monitored) 87 Blood Pressure 139/76 Weight 114.9 kg What to do next Instructions From Your Doctor Event Name Event Result Discharge Activity Activity as tolerated. Discharge Restrictions No driving. Discharge Diet(s) Regular, Drink liquids and eat a light meal. Call Your Doctor For Persistent or heavy bleeding, Temperature above 101.5 degrees, Redness, swelling, or pus at operative site, Severe pain at the operative site, Persistent vomiting. Wound Care Remove dressing as instructed. Remove Dressing On Post-op day 10. Pending Diagnostic Test Results None Pharmacy Information [facility] Discharge Instructions Meriplex dressing per Dr. Ojeda's orders. F /U w/ Dr. Zuniga. PT/OT - WBAT New Follow Up Appointments after Discharge Follow Up with Nola Zuniga When: 05/05/2023 09:30 AM EST Comments: Keep scheduled appointment *[facility] OFFICE* Where: [address] [place] [address]- Business (1) Follow Up with CASSIE LORENZ When: In 0 days Where: [address] [place] [address]- Business (1) Medications What How Much When Why Instructions Next Dose New aspirin (aspirin 325 mg Tab) 1 Tablets By Mouth Every day Duration: 30 Days Daily for 4 weeks for blood clot prevention. Pickup at [facility]/pharmacy #[id number] 04/09 @ 9 AM Changed acetaminophen-oxycodone (Percocet 5 mg-325 mg oral tablet) 1 Tablets By Mouth Every 6 hours Status post total right knee replacement Duration: 3 Days not to exceed 4000 mg acetaminophen per day Printed Prescription NEEDED FOR PAIN, NO DOSES TODAY Changed carbamazepine (Tegretol XR 200 mg oral tablet, extended release) 1 Tablets By Mouth 3 times a day 04/08 @ 2 PM, 9 PM Unchanged calcium carbonate (Oyster Shell Calcium 1250 mg (500 mg elemental calcium) oral tablet) 1 Tablets By Mouth Every day 04/09 @ 9 AM Unchanged cetirizine (cetirizine 10 mg Tab) 1 Tablets By Mouth Every day 04/09 @ 9 AM Unchanged cholecalciferol (cholecalciferol 2000 intl units oral tablet (Vitamin D3)) 1 Tablets By Mouth Every day 04/09 @ 9 AM Unchanged docusate (Colace 100 mg Cap) 1 Capsules By Mouth 2 times a day Pickup at [facility]/pharmacy #[id number] 04/08 @ 9 PM Unchanged famotidine (famotidine 20 mg Tab) 1 Tablets By Mouth 2 times a day 04/08 @ 9 PM Unchanged montelukast (montelukast 10 mg Tab) 1 Tablets By Mouth Every day 04/09 @ 9 AM Unchanged potassium chloride (Potassium Chloride (Pbz-Jzbx-Ucs 10) 10 mEq oral tablet, extended release) 1 Tablets By Mouth Every day 04/09 @ 9 AM Unchanged sertraline (sertraline 25 mg Tab) 1 Tablets By Mouth Every day 04/09 @ 9 AM Pharmacy Information [facility]/pharmacy #[id number]: [address] [place], [place] [id number] [phone] What How Much When Comments Stop Taking hydrOXYzine (hydrOXYzine hydrochloride 25 mg Tab) 1 Tablets By Mouth At bedtime as needed for as needed for itching Stop Taking primidone (primidone 50 mg Tab) 1 Tablets By Mouth Once a day (at bedtime) Test Results CBC BMP WBC: 6.2 E9/L (04/08/23 05:29:00) BUN: 13 mg/dL (04/08/23 05:29:00) RBC: 3.1 E12/L Low (04/08/23 05:29:00) Creatinine: 0.7 mg/dL (04/08/23 05:29:00) HGB: 9.5 gm/dL Low (04/08/23 05:29:00) Sodium Lvl: 138 mmol/L (04/08/23 05:29:00) Hct: 29 % Low (04/08/23 05:29:00) Potassium Lvl: 3.9 mmol/L (04/08/23 05:29:00) MCV: 92.3 fL (04/08/23 05:2 (more content not included)... [facility] Interdisciplinary Note - Jordon e Manageron 04-08-2023 Interdisciplinary Note - Air Box Tester CRM to room to discuss DC planning. Patient is awake, alert and mostly oriented. Patient verified PCP with help, insurance and DME on admit. Patient is inpatient, medicare form completed on admit. Patient is from home alone. Will need transport to SNF. Patient had right TKA. Patient is assigned to Dr Zuniga, see notes. She also has hospitalist Shelby ANY on case, see notes. Patient will need SNF placement. Patient will continue to work with PT/OT. She will need a 3M stay and can DC to SNF 04/08/23. SNF choice is [facility] and they have accepted. Patient white board updated, CRM contact provided. CRM following. DC today, needs transport, awaiting transport time Transport time is 1600 CRM called Dottie Sánchez and updated him [facility] Comment on above: Result Comment: Elec tronically Signed By: Nidia Rodriguez\.br\Date and Time Signed: 04/08/23 13:36 EST Lyjarodon 04-08-2023 Anion gap [Moles/Vol] 10 mmol/L Normal 6-16 [facility] Comment on above: Performed By: #### 2 482972, 8732648, 7204630, 41828053, 4443185 ####[facility] [address] [place] [address] Chloride [Moles/Vol] 105 mmol/L Normal 101-111 [facility] Comment on above: Performed By: #### 2 053735, 6396652, 8739543, 32145731, 7176378 ####[facility] [address] [place] [address] CO2 [Moles/Vol] 27 mmol/L Normal 21-31 [facility] Comment on above: Performed By: #### 2 340019, 2323620, 2143057, 15236015, 8589626 ####[facility] [address] [place] [address] Potassium [Moles/Vol] 3.9 mmol/L Normal 3.5-5.3 [facility] Comment on above: Performed By: #### 2 026631, 1804351, 6502493, 26271666, 6145758 ####[facility] [address] [place] [address] Sodium [Moles/Vol] 138 mmol/L Normal 135-145 [facility] Comment on above: Performed By: #### 2 725135, 0358614, 7075828, 11885932, 2959758 ####[facility] [address] [place] [address] Progress Note-Physicianon Progress Note-Physician Assessment/Plan Request to re-consult to see pt. to complete SNF med rec and rx. 1. Status post total right knee replacement (Z96.651: Presence of right artificial knee joint) S/p R TKA on 04/05 secondary to R knee OA performed and managed by Dr. Gil Zuniga -Asa 325mg daily x 4 wks for DVTp -PT/OT -> SNF -Trend labs -Pain mgt. -Education: Oral pain med regimen, I.S. and bowel regimen to avoid constipation Thank you for the opportunity to assist in the mgt. of your patient Ordered: acetaminophen-oxycodone , 1 tab(s), Oral, q6hr for 3 day(s), 12 tab(s), Refill(s) 0, not to exceed 4000 mg acetaminophen per day 2. Osteoarthritis of right knee (M17.11: Unilateral primary osteoarthritis, right knee) See above 3. Seizure disorder (G40.909: Epilepsy, unspecified, not intractable, without status epilepticus) Last seizure - age 2 per family -Carbamazepine -Seizure precautions 4. GERD (gastroesophageal reflux disease) (K21.9: Gastro-esophageal reflux disease without esophagitis) -Pepcid 5. Obesity (E66.9: Obesity, unspecified) BMI - Awaiting ht/wt. -Educated on need for lifestyle modifications with goal of weight loss as obesity has a negative impact on co-morbid conditions. 6. On deep vein thrombosis (DVT) prophylaxis (Z79.899: Other usp (current) drug therapy) Defer to ortho team -Plan discussed w/ patient, nursing staff and CRM. -Disposition: Pt. is medically stable for addition to rehabilitation facility. This report was transcribed using voice recognition software. Every effort was made to ensure accuracy, however, inadvertently computerized imaging administrator mistakes may be present. Subjective No acute events overnight. Patient denies CP, pressure, palpitations, N/V, SOB or paresthesia. Review of Systems -Last BM: 04/07 per pt. -> not charted Additional ROS info: Except as noted in the above Review of Systems and in the History of Present Illness all other systems have been reviewed and are negative or noncontributory Objective Vitals & Measurements T: 36.7 ?C(Oral) TMIN: 36.0 ?C(Oral) TMAX: 36.7 ?C(Oral) HR: 87(Monitored) BP: 139/76 SpO2: 97% WT: 114.9 kg Intake & Output This visit (24 hour periods starting at 07:00 EST) 04/08/23 * 04/07/23 04/06/23 Total Summary Intake mL -- 1,040 2,484.02 Output mL -- -- 320 Fluid Balance -- 1,040 2,164.02 Intake (4) Lactated Ringers Injection 1,000 mL mL -- -- 1,820.02 Oral Intake mL -- 1,040 660 hydromorphone mL -- -- 2 ondansetron mL -- -- 2 Total -- 1,040 2,484.02 Output (1) Urine Voided mL -- -- 320 Total -- -- 320 Counts (1) Urine Count -- 4 2 * This column has not completed the indicated time period. Physical Exam General: Calm, able to communicate needs, NAD Head: Normocephalic/atraumati c Eyes: Pupils equal, round. Conjunctivae and sclerae normal, HEENT: Mucous membrane moist. Tongue normal Neck: Trachea midline, neck supple, Chest: No chest wall deformity, no chest wall tenderness Lungs: CTA paz Cardio: Normal rate, apical is regular, mild non pitting b/l LE edema - pt. states better today Pulses: Normal capillary refill Abdomen: Soft, non-distended, non-tender, normal BS Musculoskeletal: No deformity or scoliosis noted. Normal ROM for age. Integumentary: Warm, dry, Extremity: No clubbing, Neurologic: Alert, oriented x 3, follows commands, Mental status: Pleasant & cooperative, approp. affect, Lab Results WBC: 6.2 E9/L (04/08/23 05:29:00) RBC: 3.1 E12/L Low (04/08/23 05:29:00) HGB: 9.5 gm/dL Low (04/08/23 05:29:00) Hct: 29 % Low (04/08/23 05:29:00) MCV: 92.3 fL (04/08/23 05:29:00) MCH: 30.6 pg (04/08/23 05:29:00) MCHC: 33.2 gm/dL (04/08/23 05:29:00) RDW: 13.3 % (04/08/23 05:29:00) Platelet: 165 E9/L (04/08/23 05:29:00) MPV: 8.4 fL (04/08/23 05:29:00) Neutro Auto: 74.7 % (04/08/23 05:29:00) Lymph Auto: 15.4 % (04/08/23 05:29:00) [place] Auto: 9.8 % (04/08/23 05:29:00) Eos Auto: 0 % (04/08/23 05:29:00) Basophil Auto: 0.1 % (04/08/23 05:29:00) Neutro Absolute: 4.6 E9/L (04/08/23 05:29:00) Lymph Absolute: 1 E9/L (04/08/23 05:29:00) [place] Absolute: 0.6 E9/L (04/08/23 05:29:00) Eos Absolute: 0 E9/L (04/08/23 05:29:00) Basophil Absolute: 0 E9/L (04/08/23 05:29:00) BUN: 13 mg/dL (04/08/23 05:29:00) Creatinine: 0.7 mg/dL (04/08/23 05:29:00) eGFR: 99 mL/min/1.73 m2 (04/08/23 05:29:00) Sodium Lvl: 138 mmol/L (04/08/23 05:29:00) Potassium Lvl: 3.9 mmol/L (04/08/23 05:29:00) Chloride: 105 mmol/L (04/08/23 05:29:00) CO2: 27 mmol/L (04/08/23 05:29:00) AGAP: 10 mEq/L (04/08/23 05:29:00) Diagnostic Results No qualifying data available. Attestation Case reviewed/discussed w/ Dr. Hammond who is in agreement with POC. Problem List/Past Medical History Ongoing No qualifying data Historical No qualifying data Medications Inpatient acetaminophen-oxycodone 325 mg-5 mg (more content not included)... Normal [facility] Comment on above: Result Comment: Elec tronically Signed By: Bette OSBORN\.br\Date and Time Signed: 04/08/23 12:05 EST\.br\Electronically Co-Signed By: Lincoln Hammond DO\.br\Date and Time Co-Signed: 04/08/23 12:21 EST Progress Note-Physician Patient: ELIZABETH SÁNCHEZ Age: 57 years Sex: Female : 1965 Associated Diagnoses: None Author: Nola Zuniga DO Chief Complaint Total Knee Arthroplasty POD #3 Review of Systems Constitutional: No fever, No chills. Respiratory: No shortness of breath. Cardiovascular: No chest pain. Psychiatric: Negative. Health Status Allergies: Allergic Reactions (All) Severity Not Documented Dilantin- Rash. Problem list: All Problems History of seizure as a child / SNOMED CT 8651404818 / Confirmed Cognitive developmental delay / SNOMED CT 8420843507 / Confirmed Physical Examination Gastrointestinal: Soft, Non-tender. Musculoskeletal Mobility/ gait: requires assistance. Lower extremity exam: Swelling as expected. Supple calves.. AROM-PROM limited due to dressing and pain.. Neurologic: Alert, Oriented, Normal sensory, Normal motor function. Psychiatric: Appropriate mood & affect. Review / Management Radiology results: Xray in Recovery Room shows stable position and alignment.. Impression and Plan Diagnosis POD #3 Right TKA, stable expected post surgical acute blood loss anemia. Orders Continue mechanical and pharmacologic DVT prophylaxis. Analgesics. PT and OT services. Discharge planning with d/c to [facility] today.. Normal [facility] Comment on above: Result Comment: Elec tronically Signed By: Nola Zuniga DO\.br\Date and Time Signed: 04/08/23 07:30 EST eGFRon 04-08-2023 eGFR 99 mL/min/1.73 m2 Normal >=59 [facility] Comment on above: Order Comment: Order added by Discern Expert. Performed By: #### 2 385417, 8336929, 7903364, 15503856, 9823783 ####[facility] [address] [place] [address] Auto Diffon 04-07-2023 Basophils/100 WBC (Bld) 0.1 % Normal 0.0-2.0 [facility] Comment on above: Order Comment: Order Added by Discern Expert. Performed By: #### 2 802384, 0581518, 7059934, 3738014, 5776425, 00916644 ####[facility] [address] [place] [address] Basophils/Leukocytes Auto (Bld) [Pure # fraction] 0.0 E9/L Normal 0.0-0.2 [facility] Comment on above: Order Comment: Order Added by Discern Expert. Performed By: #### 2 742128, 0424601, 7914378, 4569590, 9036072, 03311340 ####[facility] [address] [place] [address] Eosinophils/100 WBC (Bld) 0.0 % Normal 0.0-8.0 [facility] Comment on above: Order Comment: Order Added by Discern Expert. Performed By: #### 2 100084, 4941650, 9903309, 1120779, 8262565, 48363025 ####[address] [place] [address] Eosinophils/Leukocyt es Auto (Bld) [Pure # fraction] 0.0 E9/L Normal 0.0-0.5 [facility] Comment on above: Order Comment: Order Added by Cynthia Expert. Performed By: #### 2 967614, 9027160, 9140253, 9541846, 8227627, 12253784 ####[address] [address] Lymphocytes/100 WBC (Bld) 19.1 % Normal 14.0-50.0 [facility] Comment on above: Order Comment: Order Added by Cynthia Expert. Performed By: #### 2 012311, 9573872, 5114306, 4321881, 6043801, 53188933 ####[address] [address] Lymphocytes/Leukocyt es Auto (Bld) [Pure # fraction] 1.3 E9/L Normal 1.0-4.0 [facility] Comment on above: Order Comment: Order Added by Cynthia Expert. Performed By: #### 2 603831, 1004535, 2529205, 8610302, 6245052, 30101419 ####[address] [place] [address] Monocytes/100 WBC (Bld) 12.6 % Normal 4.0-14.0 [facility] Comment on above: Order Comment: Order Added by Discern Expert. Performed By: #### 2 197692, 1867112, 9547431, 9472230, 8239614, 84349859 ####[address] [place] [address] Monocytes/Leukocytes Auto (Bld) [Pure # fraction] 0.8 E9/L Normal 0.2-1.0 [facility] Comment on above: Order Comment: Order Added by Discern Expert. Performed By: #### 2 174658, 7072914, 4353958, 1529519, 6901855, 88202258 ####[address] [place] [address] Neutrophils/100 WBC (Bld) 68.2 % Normal 36.0-75.0 [facility] Comment on above: Order Comment: Order Added by Cynthia Expert. Performed By: #### 2 727181, 2387437, 2396580, 0861007, 3095971, 97326929 ####[address] [address] Neutrophils/Leukocyt es Auto (Bld) [Pure # fraction] 4.6 E9/L Normal 2.0-7.5 [facility] Comment on above: Order Comment: Order Added by Discern Expert. Performed By: #### 2 869711, 4921086, 6630249, 4211846, 0881106, 47529552 ####[address] [place] [address] BUNon 04-07-2023 Urea nitrogen [Mass/Vol] 12 mg/dL Normal 5-21 [facility] Comment on above: Performed By: #### 2 949511, 1417238, 5155486, 9532018, 2174470, 51774097 ####[address] [place] [address] CBC w/ Auto Diffon Erythrocyte distribution width (RBC) [Ratio] 13.6 % Normal 10.9-14.2 [facility] Comment on above: Performed By: #### 2 171315, 9953389, 5119797, 7329927, 1056977, 06025123 ####[address] [place] [address] Hematocrit (Bld) [Volume fraction] 28.7 % Low 34.0-46.0 [facility] Comment on above: Performed By: #### 2 789221, 8399243, 4061918, 4384546, 7753029, 08498832 ####[address] [address] Hemoglobin (Bld) [Mass/Vol] 9.7 g/dL Low 12.0-16.0 [facility] Comment on above: Performed By: #### 2 942227, 0563687, 8750372, 9575847, 6648424, 40470390 ####[address] [address] MCH (RBC) [Entitic mass] 30.8 pg Normal 27.0-34.0 [facility] Comment on above: Performed By: #### 2 779251, 0795222, 5008991, 7528767, 5699352, 43579597 ####[address] [address] MCHC (RBC) [Mass/Vol] 33.7 g/dL Normal 31.4-36.0 [facility] Comment on above: Performed By: #### 2 302969, 8643454, 9052047, 5944564, 7800022, 73708402 ####[address] [place] [address] MCV (RBC) [Entitic vol] 91.4 fL Normal 80.0-100.0 [facility] Comment on above: Performed By: #### 2 495167, 5148238, 0385860, 9869004, 7467254, 63330506 ####[address] [place] [address] Platelet mean volume (Bld) [Entitic vol] 8.5 fL Normal 6.4-10.8 [facility] Comment on above: Performed By: #### 2 543091, 7473404, 5106358, 2804158, 9600767, 66668503 ####[facility] [address] [place] [address] Platelets (Bld) [#/Vol] 164.0 E9/L Normal 150.0-500.0 [facility] Comment on above: Performed By: #### 2 476136, 6470004, 1634951, 2000434, 5090767, 02571344 ####[facility] [address] [place] [address] RBC (Bld) [#/Vol] 3.1 E12/L Low 4.3-5.9 [facility] Comment on above: Performed By: #### 2 194385, 3335682, 7398121, 7026380, 1142743, 78706330 ####[facility] [address] [place] [address] WBC corrected for nucl RBC Auto (Bld) [#/Vol] 6.7 E9/L Normal 4.0-11.0 [facility] Comment on above: Performed By: #### 2 850484, 7870728, 2119750, 0381671, 6909813, 54121190 ####[facility] [address] [place] [address] Creatinineon 04-07-2023 Creatinine [Mass/Vol] 0.6 mg/dL Normal 0.5-1.3 [facility] Comment on above: Performed By: #### 2 586841, 3440527, 8415341, 0553522, 3077449, 71279220 ####[facility] [address] [place] [address] Interdisciplinary Note - Jordon e Manageron 04-07-2023 Interdisciplinary Note - Air Box Tester CRM to room to discuss DC planning. Patient is awake, alert and mostly oriented. Patient verified PCP with help, insurance and DME on admit. Patient is inpatient, medicare form completed on admit. Patient is from home alone. Will need transport to SNF. Patient had right TKA. Patient is assigned to Dr Zuniga, see notes. She also has hospitalist Shelby AGARWAL on case, see notes. Patient will need SNF placement. Patient will continue to work with PT/OT. She will need a 3M stay and can DC to SNF 04/08/23. SNF choice is [facility] and they have accepted. Patient white board updated, CRM contact provided. CRM following. Normal [facility] Comment on above: Result Comment: Elec tronically Signed By: Nidia Rodriguez\.br\Date and Time Signed: 04/07/23 09:47 EST Joel 04-07-2023 Anion gap [Moles/Vol] 8 mmol/L Normal 6-16 [facility] Comment on above: Performed By: #### 2 605072, 8153536, 4636778, 8829831, 6479501, 36313969 ####[facility] [address] [place] [address] Chloride [Moles/Vol] 105 mmol/L Normal 101-111 [facility] Comment on above: Performed By: #### 2 957569, 8980671, 8024266, 7119005, 3231419, 24379991 ####[facility] [address] [place] [address] CO2 [Moles/Vol] 30 mmol/L Normal 21-31 [facility] Comment on above: Performed By: #### 2 543538, 6745573, 0281049, 0926080, 7912838, 88307555 ####[facility] [address] [place] [address] Potassium [Moles/Vol] 4.2 mmol/L Normal 3.5-5.3 [facility] Comment on above: Performed By: #### 2 222053, 0702857, 3328748, 6865668, 4265319, 60307859 ####[facility] [address] [place] [address] Sodium [Moles/Vol] 139 mmol/L Normal 135-145 [facility] Comment on above: Performed By: #### 2 515042, 9304932, 7469435, 0426559, 2648239, 50781004 ####[facility] [address] [place] [address] Progress Note-Physicianon Progress Note-Physician Assessment/Plan PLAN: 1. Status post total right knee replacement (Z96.651: Presence of right artificial knee joint) pt is s/p RTA secondary to right knee OA. Procedure performed by 04/05/23. Pain control. POD #2 PT/OT to eval, treat and make recommendations. Dizziness resolved today. mild perioperative blood loss anemia. ortho managing. 2. Osteoarthritis of right knee (M17.11: Unilateral primary osteoarthritis, right knee) See #1 3. Seizure disorder (G40.909: Epilepsy, unspecified, not intractable, without status epilepticus) Hasn't had seizure since age of 2 per pt's brother. Continue Tegretol, 4. GERD (gastroesophageal reflux disease) (K21.9: Gastro-esophageal reflux disease without esophagitis) PPI Pt is medically stable for discharge when ready. Please reconsult if any issues. Thank you for allowing us to participate in the care of this pt. Subjective Doing well this morning. Denies chest pain, shortness of breath; is using her incentive spirometry as directed. Denies nausea or vomiting. Is eating and drinking well. Is expelling flatus but no bowel movement. Discussed pain and bowel regimen to avoid constipation. Pt is pending going to SNF. Will have 3rd midnight tomorrow. No issues last night. Objective Vitals & Measurements T: 36.4 ?C(Oral) TMIN: 36.4 ?C(Oral) TMAX: 37.2 ?C(Oral) HR: 89(Monitored) RR: 16 BP: 165/80 SpO2: 93% WT: 114.9 kg Intake & Output This visit (24 hour periods starting at 07:00 EST) 04/07/23 * 04/06/23 04/05/23 Total Summary Intake mL -- 2,484.02 1,797.2 Output mL -- 320 2,885 Fluid Balance -- 2,164.02 -1,087.8 Intake (15) Lactated Ringers Injection mL -- -- 1,300 Lactated Ringers Injection 1,000 mL mL -- 1,820.02 50 Oral Intake mL -- 660 240 Sodium Chloride 0.9%, cefazolin mL -- -- 100 bupivacaine mL -- -- 1.2 dexamethasone mL -- -- 2 fentanyl mL -- -- 1 hydromorphone mL -- 2 -- ketorolac mL -- -- 1 lidocaine mL -- -- 1 midazolam mL -- -- 2 morphine mL -- -- 1 ondansetron mL -- 2 4 phenylephrine mL -- -- 0.1 propofol mL -- -- 93.9 Total -- 2,484.02 1,797.2 Output (3) EBL Surgery mL -- -- 10 Urine Catheter mL -- -- 2,875 Urine Voided mL -- 320 -- Total -- 320 2,885 Counts (1) Urine Count -- 2 -- * This column has not completed the indicated time period. Physical Exam General: Alert and oriented, No acute distress. Eye: Pupils are equal, round and reactive to light. HENT: Normocephalic, Normal hearing, No pharyngeal erythema. Neck: Supple, Non-tender, No lymphadenopathy. Respiratory: Lungs are clear to auscultation, Respirations are non-labored, Breath sounds are equal, Symmetrical chest wall expansion. Cardiovascular: Normal rate, Regular rhythm, Good pulses equal in all extremities, Normal peripheral perfusion, No edema. Gastrointestinal: Soft, Non-tender, Non-distended, Normal bowel sounds. Musculoskeletal Normal range of motion. Normal strength. Integumentary: Warm, Dry, Intact. right knee incision and dressing dry and intact. no drainage noted. Neurologic: Alert, Oriented, No focal deficits. Psychiatric: Cooperative, Appropriate mood & affect, Normal judgment. Lab Results WBC: 6.7 E9/L (04/07/23 04:46:00) RBC: 3.1 E12/L Low (04/07/23 04:46:00) HGB: 9.7 gm/dL Low (04/07/23 04:46:00) Hct: 28.7 % Low (04/07/23 04:46:00) MCV: 91.4 fL (04/07/23 04:46:00) MCH: 30.8 pg (04/07/23 04:46:00) MCHC: 33.7 gm/dL (04/07/23 04:46:00) RDW: 13.6 % (04/07/23 04:46:00) Platelet: 164 E9/L (04/07/23 04:46:00) MPV: 8.5 fL (04/07/23 04:46:00) Neutro Auto: 68.2 % (04/07/23 04:46:00) Lymph Auto: 19.1 % (04/07/23 04:46:00) [place] Auto: 12.6 % (04/07/23 04:46:00) Eos Auto: 0 % (04/07/23 04:46:00) Basophil Auto: 0.1 % (04/07/23 04:46:00) Neutro Absolute: 4.6 E9/L (04/07/23 04:46:00) Lymph Absolute: 1.3 E9/L (04/07/23 04:46:00) [place] Absolute: 0.8 E9/L (04/07/23 04:46:00) Eos Absolute: 0 E9/L (04/07/23 04:46:00) Basophil Absolute: 0 E9/L (04/07/23 04:46:00) BUN: 12 mg/dL (04/07/23 04:46:00) Creatinine: 0.6 mg/dL (04/07/23 04:46:00) eGFR: 103 mL/min/1.73 m2 (04/07/23 04:46:00) Sodium Lvl: 139 mmol/L (04/07/23 04:46:00) Potassium Lvl: 4.2 mmol/L (04/07/23 04:46:00) Chloride: 105 mmol/L (04/07/23 04:46:00) CO2: 30 mmol/L (04/07/23 04:46:00) AGAP: 8 mEq/L (04/07/23 04:46:00) Problem List/Past Medical History Ongoing No qualifying data Historical No qualifying data Medications Inpatient acetaminophen-oxycodone 325 mg-5 mg Tab, 1 tab(s), Oral, q4hr, PRN acetaminophen-oxycodone 325 mg-5 mg Tab, 2 tab(s), Oral, q4hr, PRN aspirin, 325 mg= 1 tab(s), Oral, Daily carBAMazepine 100 mg Chew Tab, 200 mg= 2 tab(s), Chewed, TID Colace 100 mg Cap, 100 mg= 1 cap(s), Oral, BID Dulcolax 5 mg Tab-EC, 10 mg= 2 tab(s), Oral, Daily, PRN famotidine 20 mg (more content not included)... Normal [facility] Comment on above: Result Comment: Elec tronically Signed By: Radha SHIRLEY\.br\Date and Time Signed: 04/07/23 09:44 EST\.br\Electronically Co-Signed By: Lincoln Hamomnd DO\.br\Date and Time Co-Signed: 04/07/23 12:35 EST eGFRon 04-07-2023 eGFR 103 mL/min/1.73 m2 Normal >=59 [facility] Comment on above: Order Comment: Order added by Discern Expert. Performed By: #### 2 022217, 6989868, 9327500, 4723872, 9214733, 51660574 ####[facility] [address] [place] [address] Auto Diffon 04-06-2023 Basophils/100 WBC (Bld) 0.1 % Normal 0.0-2.0 [facility] Comment on above: Order Comment: Order Added by Discern Expert. Performed By: #### 2 979111, 2712025, 4090056, 6884789, 6966757, 62546709 ####[facility] [address] [place] [address] Basophils/Leukocytes Auto (Bld) [Pure # fraction] 0.0 E9/L Normal 0.0-0.2 [facility] Comment on above: Order Comment: Order Added by Cynthia Expert. Performed By: #### 2 648096, 5717500, 4972063, 6183380, 8626799, 68760642 ####[facility] [address] [place] [address] Eosinophils/100 WBC (Bld) 0.0 % Normal 0.0-8.0 [facility] Comment on above: Order Comment: Order Added by Discern Expert. Performed By: #### 2 485338, 9900276, 1881322, 1053646, 7254877, 84881822 ####[address] [place] [address] Eosinophils/Leukocyt es Auto (Bld) [Pure # fraction] 0.0 E9/L Normal 0.0-0.5 [facility] Comment on above: Order Comment: Order Added by Discern Expert. Performed By: #### 2 974513, 4138908, 2341249, 9725247, 6170009, 17250543 ####[address] [address] Lymphocytes/100 WBC (Bld) 17.4 % Normal 14.0-50.0 [facility] Comment on above: Order Comment: Order Added by Cynthia Expert. Performed By: #### 2 860423, 8035244, 9195371, 1614713, 6956448, 45092504 ####[address] [address] Lymphocytes/Leukocyt es Auto (Bld) [Pure # fraction] 1.6 E9/L Normal 1.0-4.0 [facility] Comment on above: Order Comment: Order Added by Cynthia Expert. Performed By: #### 2 482653, 9336257, 7190408, 7415466, 2101412, 89358396 ####[address] [address] Monocytes/100 WBC (Bld) 10.1 % Normal 4.0-14.0 [facility] Comment on above: Order Comment: Order Added by Cynthia Expert. Performed By: #### 2 250376, 7739519, 5859927, 9887400, 1319684, 43315443 ####[address] [place] [address] Monocytes/Leukocytes Auto (Bld) [Pure # fraction] 0.9 E9/L Normal 0.2-1.0 [facility] Comment on above: Order Comment: Order Added by Cynthia Expert. Performed By: #### 2 857870, 3589397, 3652792, 8417715, 9255948, 99180213 ####[address] [place] [address] Neutrophils/100 WBC (Bld) 72.4 % Normal 36.0-75.0 [facility] Comment on above: Order Comment: Order Added by Discern Expert. Performed By: #### 2 592786, 2182491, 0734463, 7668620, 6140670, 15874428 ####[address] [place] [address] Neutrophils/Leukocyt es Auto (Bld) [Pure # fraction] 6.6 E9/L Normal 2.0-7.5 [facility] Comment on above: Order Comment: Order Added by Discern Expert. Performed By: #### 2 901712, 4843879, 6702248, 5079912, 3102465, 60371189 ####[address] [address] BUNon 04-06-2023 Urea nitrogen [Mass/Vol] 16 mg/dL Normal 5-21 [facility] Comment on above: Performed By: #### 2 476526, 4333565, 5078060, 9102854, 8124892, 61332214 ####[address] [address] CBC w/ Auto Diffon Erythrocyte distribution width (RBC) [Ratio] 13.2 % Normal 10.9-14.2 [facility] Comment on above: Performed By: #### 2 120905, 8300768, 3724388, 3132833, 4607362, 98479602 ####[address] [place] [address] Hematocrit (Bld) [Volume fraction] 31.4 % Low 34.0-46.0 [facility] Comment on above: Performed By: #### 2 156905, 5117571, 9810219, 3944636, 5795869, 47064531 ####[address] [place] [address] Hemoglobin (Bld) [Mass/Vol] 10.5 g/dL Low 12.0-16.0 [facility] Comment on above: Performed By: #### 2 201160, 2319960, 4182507, 9653706, 6200139, 38696919 ####[address] [address] MCH (RBC) [Entitic mass] 30.4 pg Normal 27.0-34.0 [facility] Comment on above: Performed By: #### 2 322067, 8344689, 0145759, 6323902, 3472886, 39393585 ####[address] [address] MCHC (RBC) [Mass/Vol] 33.6 g/dL Normal 31.4-36.0 [facility] Comment on above: Performed By: #### 2 859682, 4289572, 9821406, 8144961, 0568205, 82894606 ####[address] [address] MCV (RBC) [Entitic vol] 90.4 fL Normal 80.0-100.0 [facility] Comment on above: Performed By: #### 2 007398, 1225674, 3146588, 7268842, 4375818, 72223805 ####[address] [address] Platelet mean volume (Bld) [Entitic vol] 8.2 fL Normal 6.4-10.8 [facility] Comment on above: Performed By: #### 2 335789, 7121319, 3560114, 3492695, 2056463, 15796238 ####[address] [address] Platelets (Bld) [#/Vol] 197.0 E9/L Normal 150.0-500.0 [facility] Comment on above: Performed By: #### 2 875311, 7060086, 0807534, 3771661, 5233503, 98190078 ####[facility] [address] [place] [address] RBC (Bld) [#/Vol] 3.5 E12/L Low 4.3-5.9 [facility] Comment on above: Performed By: #### 2 768746, 0659670, 9760292, 8344406, 4241766, 21450619 ####[facility] [address] [place] [address] WBC corrected for nucl RBC Auto (Bld) [#/Vol] 9.2 E9/L Normal 4.0-11.0 [facility] Comment on above: Performed By: #### 2 059990, 2259230, 7153785, 4545555, 9755127, 30035212 ####[facility] [address] [place] [address] Consent for Anesthesiaon Consent for Anesthesia [id number]#1.00 TIFF Normal [facility] Creatinineon 04-06-2023 Creatinine [Mass/Vol] 0.8 mg/dL Normal 0.5-1.3 [facility] Comment on above: Performed By: #### 2 819666, 7034461, 6812356, 2022696, 1486195, 50838982 ####[facility] [address] [place] [address] Interdisciplinary Note - Jordon e Manageron 04-06-2023 Interdisciplinary Note - Air Box Tester CRM to room to discuss DC planning. Patient is awake, alert and mostly oriented. Patient verified PCP with help, insurance and DME on admit. Patient is inpatient, medicare form completed on admit. Patient is from home alone. Will need transport to SNF. Patient had right TKA. Patient is assigned to Dr Zuniga, see notes. She also has hospitalist Shelby BEAM SAW OPERATOR on case, see notes. Patient will need SNF placement. Patient will work with PT/OT. She will need a 3M stay and can DC to SNF 04/08/23. SNF choice is [facility] and they have accepted. Patient white board updated, CRM contact provided. CRM following. SARAH is going to do an onsite visit with patient Normal [facility] Comment on above: Result Comment: Elec tronically Signed By: Nidia Rodriguez\.br\Date and Time Signed: 04/06/23 11:35 EST Interdisciplinary Note - Patti n 04-06-2023 Interdisciplinary Note - OT OT AM-PAC six clicks score: =SNF. Main barrier towards Pt's safe and functional performance towards all ADL tasks and transfers is Pt's knee pain. Pt requires mod A for lower body dressing due to pain at time of eval. OT to follow daily, progressing as tolerates. SNF recommended at this time for safety and to maximize Pt's independence. Normal [facility] IntraOperative Documentson 0 04-06-2023 IntraOperative Documents [id number]#1.00 TIFF Normal [facility] Lyteson 04-06-2023 Anion gap [Moles/Vol] 10 mmol/L Normal - [facility] Comment on above: Performed By: #### 2 412685, 6870722, 6566630, 8534263, 5572926, 55867887 ####[facility] [address] [place] [address] Chloride [Moles/Vol] 105 mmol/L Normal 101-111 [facility] Comment on above: Performed By: #### 2 053555, 9121417, 3758074, 2302098, 1053117, 91303092 ####[facility] [address] [place] [address] CO2 [Moles/Vol] 29 mmol/L Normal 21-31 [facility] Comment on above: Performed By: #### 2 943420, 7765060, 5158687, 9451731, 8707840, 62509738 ####[facility] [address] [place] [address] Potassium [Moles/Vol] 3.8 mmol/L Normal 3.5-5.3 [facility] Comment on above: Performed By: #### 2 184866, 2950029, 1690465, 3312122, 2222927, 36635887 ####[facility] [address] [place] [address] Sodium [Moles/Vol] 140 mmol/L Normal 135-145 [facility] Comment on above: Performed By: #### 2 668757, 3094101, 5770273, 3909563, 3183595, 09155740 ####[facility] [address] [place] [address] Message from Medicareon 03-22 Message from Medicare [id number]#1.00T IFF Normal [facility] Preoperative Documentson Preoperative Documents [id number]#1.00 TIFF Normal [facility] Progress Note-Physicianon Progress Note-Physician Assessment/Plan PLAN: 1. Status post total right knee replacement (Z96.651: Presence of right artificial knee joint) pt is s/p RTA secondary to right knee OA. Procedure performed by 04/05/23. Pain control. POD 1 PT/OT to eval, treat and make recommendations. Dizziness intermittently -Meclzine 2. Osteoarthritis of right knee (M17.11: Unilateral primary osteoarthritis, right knee) See #1 3. Seizure disorder (G40.909: Epilepsy, unspecified, not intractable, without status epilepticus) Hasn't had seizure since age of 2 per pt's brother. Continue Tegretol, 4. GERD (gastroesophageal reflux disease) (K21.9: Gastro-esophageal reflux disease without esophagitis) PPI Subjective Doing well this morning. Denies chest pain, shortness of breath; is using her incentive spirometry as directed. Denies nausea or vomiting. Is eating and drinking well. Is expelling flatus but no bowel movement. Discussed home pain and bowel regimen to avoid constipation. Does state she feels dizzy when up room spinning . States she has had this in the past. Objective Vitals & Measurements T: 36.7 ?C(Oral) TMIN: 35.6 ?C(Axillary) TMAX: 36.7 ?C(Oral) HR: 88(Monitored) RR: 18 BP: 124/64 SpO2: 92% WT: 110.8 kg Intake & Output This visit (24 hour periods starting at 07:00 EST) 04/06/23 * 04/05/23 04/04/23 Total Summary Intake mL 1 1,797.2 -- Output mL -- 2,885 -- Fluid Balance 1 -1,087.8 -- Intake (15) Lactated Ringers Injection mL -- 1,300 -- Lactated Ringers Injection 1,000 mL mL -- 50 -- Oral Intake mL -- 240 -- Sodium Chloride 0.9%, cefazolin mL -- 100 -- bupivacaine mL -- 1.2 -- dexamethasone mL -- 2 -- fentanyl mL -- 1 -- hydromorphone mL 1 -- -- ketorolac mL -- 1 -- lidocaine mL -- 1 -- midazolam mL -- 2 -- morphine mL -- 1 -- ondansetron mL -- 4 -- phenylephrine mL -- 0.1 -- propofol mL -- 93.9 -- Total 1 1,797.2 -- Output (2) EBL Surgery mL -- 10 -- Urine Catheter mL -- 2,875 -- Total -- 2,885 -- Counts (0) * This column has not completed the indicated time period. Physical Exam General: Alert and oriented, No acute distress. Eye: Pupils are equal, round and reactive to light. HENT: Normocephalic, Normal hearing, No pharyngeal erythema. Neck: Supple, Non-tender, No lymphadenopathy. Respiratory: Lungs are clear to auscultation, Respirations are non-labored, Breath sounds are equal, Symmetrical chest wall expansion. Cardiovascular: Normal rate, Regular rhythm, Good pulses equal in all extremities, Normal peripheral perfusion, No edema. Gastrointestinal: Soft, Non-tender, Non-distended, Normal bowel sounds. Musculoskeletal Normal range of motion. Normal strength. Integumentary: Warm, Dry, Intact. right knee incision and dressing dry and intact. no drainage noted. Neurologic: Alert, Oriented, No focal deficits. Psychiatric: Cooperative, Appropriate mood & affect, Normal judgment. Lab Results WBC: 9.2 E9/L (04/06/23 04:49:00) RBC: 3.5 E12/L Low (04/06/23 04:49:00) HGB: 10.5 gm/dL Low (04/06/23 04:49:00) Hct: 31.4 % Low (04/06/23 04:49:00) MCV: 90.4 fL (04/06/23 04:49:00) MCH: 30.4 pg (04/06/23 04:49:00) MCHC: 33.6 gm/dL (04/06/23 04:49:00) RDW: 13.2 % (04/06/23 04:49:00) Platelet: 197 E9/L (04/06/23 04:49:00) MPV: 8.2 fL (04/06/23 04:49:00) Neutro Auto: 72.4 % (04/06/23 04:49:00) Lymph Auto: 17.4 % (04/06/23 04:49:00) [place] Auto: 10.1 % (04/06/23 04:49:00) Eos Auto: 0 % (04/06/23 04:49:00) Basophil Auto: 0.1 % (04/06/23 04:49:00) Neutro Absolute: 6.6 E9/L (04/06/23 04:49:00) Lymph Absolute: 1.6 E9/L (04/06/23 04:49:00) [place] Absolute: 0.9 E9/L (04/06/23 04:49:00) Eos Absolute: 0 E9/L (04/06/23 04:49:00) Basophil Absolute: 0 E9/L (04/06/23 04:49:00) BUN: 16 mg/dL (04/06/23 04:49:00) Creatinine: 0.8 mg/dL (04/06/23 04:49:00) eGFR: 84 mL/min/1.73 m2 (04/06/23 04:49:00) Sodium Lvl: 140 mmol/L (04/06/23 04:49:00) Potassium Lvl: 3.8 mmol/L (04/06/23 04:49:00) Chloride: 105 mmol/L (04/06/23 04:49:00) CO2: 29 mmol/L (04/06/23 04:49:00) AGAP: 10 mEq/L (04/06/23 04:49:00) Problem List/Past Medical History Ongoing No qualifying data Historical No qualifying data Medications Inpatient acetaminophen-oxycodone 325 mg-5 mg Tab, 1 tab(s), Oral, q4hr, PRN acetaminophen-oxycodone 325 mg-5 mg Tab, 2 tab(s), Oral, q4hr, PRN aspirin, 325 mg= 1 tab(s), Oral, Daily carBAMazepine 100 mg Chew Tab, 200 mg= 2 tab(s), Chewed, TID Colace 100 mg Cap, 100 mg= 1 cap(s), Oral, BID Dulcolax 5 mg Tab-EC, 10 mg= 2 tab(s), Oral, Daily, PRN famotidine 20 mg Tab, 20 mg= 1 tab(s), Oral, BID ferrous sulfate 325 mg Tab, 325 mg= 1 tab(s), Oral, BIDWM HYDROmorphone 1 mg/mL injectable solution, 1 mg= 1 mL, IV Push, q2hr, PRN Lactated Ringers IV Nancy 1000 mL 1,000 mL, 1000 mL, IV loratadine 10 mg Tab, 10 mg= 1 tab(s), Ora (more content not included)... Normal [facility] Comment on above: Result Comment: Elec tronically Signed By: Radha SHIRLEY\.br\Date and Time Signed: 04/06/23 11:10 EST\.br\Electronically Co-Signed By: Lincoln Hammond DO\.br\Date and Time Co-Signed: 04/06/23 13:04 EST Progress Note-Physician Patient: ELIZABETH SÁNCHEZ Age: 57 years Sex: Female : 1965 Associated Diagnoses: None Author: Nola Zuniga DO Chief Complaint Total Knee Arthroplasty POD #1 Review of Systems Constitutional: No fever, No chills. Respiratory: No shortness of breath. Cardiovascular: No chest pain. Psychiatric: Negative. Health Status Allergies: Allergic Reactions (All) Severity Not Documented Dilantin- Rash. Problem list: All Problems History of seizure as a child / SNOMED CT 8735179196 / Confirmed Cognitive developmental delay / SNOMED CT 8647331225 / Confirmed Physical Examination Gastrointestinal: Soft, Non-tender. Musculoskeletal Mobility/ gait: requires assistance. Lower extremity exam: Swelling as expected. Supple calves.. AROM-PROM limited due to dressing and pain.. Neurologic: Alert, Oriented, Normal sensory, Normal motor function. Psychiatric: Appropriate mood & affect. Review / Management Radiology results: Xray in Recovery Room shows stable position and alignment.. Impression and Plan Diagnosis POD #1 Right TKA, stable expected post surgical acute blood loss anmeia, GERD, seizure d/o. Orders Continue mechanical and pharmacologic DVT prophylaxis. Analgesics. PT and OT services. Discharge planning with Sofía Christensen when approved. ASA 325mg daily plus mechanical 4 weeks for DVTp.. Velasquez is out.. Normal [facility] Comment on above: Result Comment: Elec tronically Signed By: Nola Zuniga DO\.br\Date and Time Signed: 04/06/23 07:14 EST eGFRon 04-06-2023 eGFR 84 mL/min/1.73 m2 Normal >=59 [facility] Comment on above: Order Comment: Order added by Discern Expert. Performed By: #### 2 622921, 6553808, 0715535, 9013263, 9338836, 82419574 ####[facility] [address] [place] [address] ABO/Rhon 04-05-2023 ABO/Rh Positive Invalid Interpretation Code [facility] Comment on above: Performed By: #### 2 534413, 17516838, 68661458, 66054575 ####[facility] [address] [place] [address] ABO/Rh History Checkon 04-05 ABO/Rh History Check Verified Hx Blood Type Normal [facility] Comment on above: Performed By: #### 2 075036, 96596053, 79394041, 18605566 ####[facility] [address] [place] [address] ABSCon 04-05-2023 ABSC Gel Interp Negative Normal [facility] Comment on above: Performed By: #### 2 413298, 35190583, 42080732, 25780186 ####[facility] [address] [place] [address] Blood Bank ID#on 04-05-2023 BBID# [id number] Invalid Interpretation Code [facility] Comment on above: Performed By: #### 2 987439, 72110196, 74261200, 15852154 ####[facility] [address] [place] [address] Consent for Treatmenton 03-22 Consent for Treatment [id number]#1.00T IFF Normal [facility] H&P Updateon 04-05-2023 H&P Update [id number]#[id number] FF Normal [facility] Interdisciplinary Note - Jordon e Manageron 04-05-2023 Interdisciplinary Note - Air Box Tester CRM to room to discuss DC planning. Patient is awake, alert and mostly oriented. Patient verified PCP with help, insurance and DME. Patient is inpatient, medicare form completed. Patient is from home alone. Will most likely need transport to SNF. Patient had right TKA. Patient is assigned to Dr Zuniga, see notes. Patient will need SNF placement. Patient will work with PT/OT. She will need a 3M stay and can DC to SNF 04/08/23. SNF choice is [facility]. Patient white board updated, CRM contact provided. CRM following. Family does prefer patient close to home town. 2 choice SNF [facility] and 3rd choice [facility] accepts and patient can DC 04/08 she will need transport at DC Normal [facility] Comment on above: Result Comment: Elec tronically Signed By: Nidia Rodriguez\.br\Date and Time Signed: 04/05/23 15:13 EST Main OR Intraoperative Recor don 04-05-2023 Main OR Intraoperative Record IntraOp Document Type FT Summary Primary Physician: Nola Zuniga DO Finalized Date/Time: 04/06/23 14:13:18 Pt. Name: ELIZABETH SÁNCHEZ/Sex: 1965 Female Med Rec #: [id number] Physician: Nola Zuniga DO Financial #: [id number] Pt. Type: I Room/Bed: N317/01 Admit/Disch: 04/05/23 06:49:48 - Institution: Case Times FT Entry 1 Patient Times In Room 04/05/23 09:32:00 Out Room 04/05/23 11:03:00 Procedure Times Start 04/05/23 10:07:00 Stop 04/05/23 10:59:00 Anesthesia Times Start 04/05/23 09:32:00 Stop 04/05/23 11:03:00 Block Timeout w/ 04/05/23 08:45:00 Anesthesia Last Modified By: Amalia Shabazz 04/05/23 11:07:28 General Comments: BLOCK TIME OUT AT 0845 WITH ORLY Rajan CRNA AND CLEO Mendoza RN ASSISTING, HEART RATE 70 BPM AND SPO2 96% ON ROOM AIR. PATIENT TOLERATED WELL THEN TRANSPORTED BACK TO [facility] ON CART BY CLEO Mendoza RN AND ATTACHED TO SPO2 MONITOR WHILE WAITING TO GO BACK TO OR.[facility] RESENDIZ. Case Attendance FT Entry 1 Entry 2 Entry 3 Case Attendee Bryan Babb CRNA, DO, Michael T Wilhelm CST, Macie C Role Performed BAG ADJUSTER Surgeon - Primary HEAD BAKER/SA Time In 04/05/23 09:32:00 04/05/23 09:32:00 04/05/23 09:32:00 Time Out 04/05/23 11:03:00 04/05/23 11:03:00 04/05/23 11:03:00 Procedure KNEE TOTAL KNEE TOTAL KNEE TOTAL ARTHROPLASTY(Right) ARTHROPLASTY(Right) ARTHROPLASTY(Right) Comments IS SUPERVISING Last Modified By: Amalia Shabazz Kelsie E Burgderfer, Kelsie E 04/05/23 11:07:30 04/05/23 11:07:30 04/05/23 11:07:30 Entry 4 Entry 5 Entry 6 Case Attendee Amalia Shabazz Adam A Dent CST, Beau Role Performed Is Project Manager - Primary Scrub - Primary Staff - Other Time In 04/05/23 09:32:00 04/05/23 09:32:00 01/15/24 09:32:00 Time Out 04/05/23 11:03:00 04/05/23 11:03:00 04/05/23 11:03:00 Procedure KNEE TOTAL KNEE TOTAL KNEE TOTAL ARTHROPLASTY(Right) ARTHROPLASTY(Right) ARTHROPLASTY(Right) Comments 2ND SCRUB Last Modified By: Amalia Shabazz Kelsie E Burgderfer, Kelsie E 04/05/23 11:07:30 04/05/23 11:07:30 04/05/23 11:07:30 Entry 7 Case Attendee Buzz Hickey Role Performed SYNTHETIC DEPARTMENT SUPERVISOR Time In 04/05/23 09:32:00 Time Out 04/05/23 11:03:00 Procedure KNEE TOTAL ARTHROPLASTY(Right) Comments Last Modified By: Amalia Shabazz 04/05/23 11:07:30 General Comments: JUANI PETE, DEPUY REP, IN ATTENDANCE.[facility] RESENDIZ. Perioperative Protocols FT Pre-Care Text: Implements protective measures prior to operative or invasive procedure, confirms identity before the operative or invasive procedure, verifies operative procedure, surgical site, and laterality Entry 1 Procedure(s) KNEE TOTAL Patient Identity Birthday, ID Band ARTHROPLASTY(Right) Verified (select at Check, Patient least 2): Participation Consents / H and P Anesthesia Consent, Operative Site Present Verified HandP, Surgery/Procedure Marking Verified Consent, Transfusion Consent Surgical Site Yes Laterality Verified Yes Verified Procedure Verified Yes Correct Patient Yes Position Verified Availability Equipment, Implant, Prep Dry n/a Verified (If Medication Applicable) PreOp Antibiotic Yes Time Out Bryan Babb CRNA, Given Participants Briana KEVIN, Harish Delvalle HEAD BAKER, Bernadine Hui, Amalia Shabazz, Tez Lau Dent HEAD BAKER, Edelmira Chester Alejandro Time Out Complete 04/05/23 10:02:00 Outcomes Met? Yes Last Modified By: Amalia Shabazz 04/05/23 10:14:51 Post-Care Text: The patient is free from signs and symptoms of injury caused by extraneous objects Allergy Information FT Pre-Care Text: Verifies allergies Entry 1 Allergies Reviewed? Yes Allergies Reviewed Self/Patient With Outcomes Met? Yes Last Modified By: Amalia Shabazz 04/05/23 09:04:20 Post-Care Text: The patient received appropriate medication(s) safely administered during the perioperative period Surgical Procedures FT Entry 1 Procedure Description Procedure KNEE TOTAL ARTHROPLASTY Modifiers Right Surgeon Description RIGHT TOTAL KNEE ARTHROPLASTY Primary Procedure Yes Primary Surgeon Nola Zuniga DO Start 04/05/23 10:07:00 Stop 04/05/23 10:59:00 Anesthesia Type General Surgical Service Orthopedics Wound Class 1 - Clean Last Modified By: Amalia Shabazz 04/05/23 11:07:33 General Case Data FT Pre-Care Text: Classifies surgical wound, implements aseptic technique, initiates traffic control Entry 1 Case Information OR OR 7 FT Case Level Level 6 Wound Class 1 - Clean Specialty Orthopedics ASA Class 2 Preop Diagnosis RIGHT KNEE Postop Same As Preop Yes OSTEOARTHRITIS Postop Diagnosis RIGHT KNEE Outcomes Met? Yes OSTEOARTHRITIS Last Modified By: Amalia Shabazz 04/05/23 11:07:36 Post-Care Text: The patient is free from signs and symptoms of infection Skin Assessment (Pre Procedure) FT Pre-Care Text: Implements protective measure (more content not included)... Normal [facility] Main OR PACU I Recordon 03-22 Main OR PACU I Record PACU Phase I Document Type FT Summary Primary Physician: Nola Zuniga DO Finalized Date/Time: 04/05/23 12:20:40 Pt. Name: ELIZABETH SÁNCHEZ/Sex: 1965 Female Med Rec #: [id number] Physician: Nola Zuniga DO Financial #: [id number] Pt. Type: I Room/Bed: [place] [address] Admit/Disch: 04/05/23 06:49:48 - Institution: Case Times PACU I FT Pre-Care Text: Identifies barriers to communication and implements measures to provide psychological support Develops individualized plan of care, and ensures continuity of care Maintains patient's dignity and privacy, and maintains patient confidentiality Identifies and reports philosophical, cultural, and spiritual beliefs and values Identifies individual values and wishes concerning care Implements aseptic technique, and administers prescribed antibiotic therapy and immunizing agents as ordered Evaluates postoperative tissue perfusion Implements thermoregulation measures, and monitors body temperature Evaluates postoperative respiratory status Evaluates postoperative cardiac status Evaluates postoperative neurological status Assesses pain control, collaborated in initiating patient-controlled analgesia and implements alternative methods of pain control Verifies allergies, administers prescribed medications and solutions, evaluates response to medications Entry 1 In PACU I 04/05/23 11:06:00 Discharge from PACU 04/05/23 11:41:00 I Outcomes Met? Yes Last Modified By: Zoraida Ferrer RN 04/05/23 12:20:02 Post-Care Text: The patient demonstrates knowledge of the expected response to the operative or invasive procedure The patient's care is consistent with the individualized perioperative plan of care The patient's right to privacy is maintained The patient's value system, lifestyle, ethnicity, and culture are considered, respected, and incorporated into the perioperative plan of care The patient participates in decisions affecting his or her perioperative plan of care The patient is free from signs and symptoms of infection The patient has wound/tissue perfusion consistent with or improved from baseline levels established preoperatively The patient is at or returning to normothermia at the conclusion of the immediate postoperative period The patient's respiratory function is consistent with or improved from baseline levels established preoperatively The patient's cardiovascular status is consistent with or improved from baseline levels established preoperatively The patient's cardiovascular status is consistent with or improved from baseline levels established preoperatively The patient demonstrates and/or reports adequate pain control throughout the perioperative period The patient received appropriate medication(s), safely administered during the perioperative period Acuity Level PACU I FT Entry 1 Start Time 04/05/23 11:06:00 Stop Time 04/05/23 11:41:00 Acuity Level Acuity Level I Last Modified By: Zoraida Ferrer RN 04/05/23 12:20:33 Finalized By: Zoraida Ferrer RN Document Signatures Signed By: Zoraida Ferrer RN 04/05/23 12:20 Normal [facility] Main OR Preoperative Recordo n 04-05-2023 Main OR Preoperative Record PreOp Document Type FT Summary Primary Physician: Nola Zuniga DO Finalized Date/Time: 04/05/23 10:11:23 Pt. Name: ELIZABETH SÁNCHEZ/Sex: 1965 Female Med Rec #: [id number] Physician: Nola Zuniga DO Financial #: [id number] Pt. Type: A Room/Bed: [facility]/ Admit/Disch: 04/05/23 06:49:48 - Institution: Case Times PreOp FT Pre-Care Text: Verifies consent for planned procedure, identifies individual values and wishes concerning care, includes family members in perioperative teaching Entry 1 Patient Times. In Pre Surgery 04/05/23 07:00:00 Out Pre Surgery 04/05/23 09:30:00 Outcomes Met? Yes Last Modified By: Amalia Shabazz 04/05/23 10:11:22 Post-Care Text: The patient participates in decisions affecting his or her perioperative plan of care Finalized By: Amalia Shabazz Document Signatures Signed By: Amalia Shabazz 04/05/23 10:11 Normal [facility] Monitor Recordon 04-05-2023 Monitor Record [id number]#[id number] TIFF Normal [facility] Monitor Record [id number]#1.00 TIFF Normal [facility] Operative Reporton Operative Report SURGERY DATE: 04/05/2023 PREOPERATIVE DIAGNOSIS: Postoperative pain control requested by patient and surgeon POSTOPERATIVE DIAGNOSIS: Postoperative pain control requested by patient and surgeon OPERATION: Right adductor canal block utilizing ultrasound guidance ANESTHESIA: Local with monitored anesthesia care PROCEDURE: The patient was interviewed and examined. The anesthesia options were discussed including adductor canal block for postoperative analgesia. The discussion included the procedure, risks and benefits and alternatives to the procedure. The patient's questions were all answered and the patient elected to proceed with the adduction canal block for postoperative pain relief. The patient was placed on the monitors, electrocardiogram, noninvasive blood pressure machine and pulse oximetry. I.V. sedation was then administered with a total of 1 mg I.V. Versed. The mid thigh was prepped with ChloraPrep and sterilely draped. The anatomy was identified with ultrasound and then under ultrasound guidance, the femoral nerve was identified with a 21 gauge 100 mm needle. After attempted aspiration for blood, a solution of 20 mL 0.5% Ropivacaine was slowly injected with frequent aspirations without signs or symptoms of intravascular injection. The patient tolerated the procedure well. There were signs and symptoms of a block within minutes after completion of the procedure. The patient then proceeded to undergo general anesthesia for the proposed procedure. Bryan Babb CRNA lr Dictated: 04/05/2023 [id number] Transcribed: 04/05/2023 [facility] Comment on above: Result Comment: Elec tronically Signed By: Bryan Babb CRNA\.br\Date and Time Signed: 04/05/23 15:26 EST Operative Report SURGERY DATE: 04/05/2023 AIR BRAKE WORKER: Bernadine Moreira CST PREOPERATIVE DIAGNOSIS: Right knee end-stage osteoarthritis with failure of conservative injection care POSTOPERATIVE DIAGNOSIS: Right knee end-stage osteoarthritis with failure of conservative injection care OPERATION: Right total knee arthroplasty ANESTHESIA: Spinal with block with sedation ESTIMATED BLOOD LOSS: Zero SPECIMEN: Bone IMPLANTS: The [employer]une Knee System with a 7 right PS femur, a 6 cemented tibial tray, a 6 mm polyethylene, 35 mm patellar button TOURNIQUET TIME: See nurse's record HISTORY AND INDICATIONS: Elizabeth is a 57-year-old female with progressive bilateral knee osteoarthritis that is [id number], grade 4 severe in nature. She has activities of daily living and night disruption. She has buckling and giving out. She has pain, swelling, irritability. The pros, cons, risks, benefits, reasonable expectations of above procedure were discussed. Consent form signed and charted. The site is marked preoperatively. All questions were answered preoperatively. Antibiotics provided weight-based per protocol. Consent form signed and witnessed. PROCEDURE: Elizabeth is taken to the Operating Room and placed in supine position. Anesthesia provided. A well-padded tourniquet was placed on the right upper thigh. The leg was prepped and draped in sterile fashion. A time-out procedure occurred consistent with the consent form, History and Physical, preoperative marked site. Landmarks were identified. Once time-out was confirmed, midline incision was made of approximately 6 inches. Medial parapatellar arthrotomy was performed and the patella was everted. End-stage tricompartmental degenerative changes were noted in the medial patellofemoral joint. Patella was appropriately cut and retracted. Intramedullary drill and jig device was placed in the femur and a 5 degree valgus cut taking off 11 mm was performed. This was sized at a size 7 DePuy Attune. Anterior, posterior chamfer cuts were performed as well as posterior stabilized box cut. Anterior cruciate ligament and posterior cruciate ligament were resected. Collateral ligaments were protected and balanced. Meniscal remnants removed. Intramedullary drill and jig device was placed to the tibia. The tibia was cut. Gaps were symmetrical. Posterior gutters were cleaned and free. Tibia was prepared for a size 6 tray. Trial components were placed with full extension, appropriate flexion. Patellofemoral tracking and height were appropriate with a 35 mm button. All trial components were removed. The capsule, gutter and subcutaneous tissues were injected with 100 cc of Exparel. Pulse lavage irrigation as well as Irrisept solution was utilized per protocol. Once the bone was prepared, the [employer] Simplex cement was mixed. All components were cemented in place and allowed to harden for 16 minutes. All cement osteophytes were removed. It was taken through an arc of motion and deemed stable. After copious irrigation, 2 gm of tranexamic acid was placed subfascially. Fascial layer was closed with #2 Quill suture in a running fashion, 2-0 Quill suture closed the subcutaneous tissues and jeffery were applied. A 10-inch Mepilex dressing with soft roll wrap was provided. The tourniquet was deflated. The patient awaken from anesthesia and transferred to the Recovery Room in stable and satisfactory condition. CASE: Clean and elective COUNTS: Sponge and needle count correct SPECIMEN: Bone CONDITION: The patient's condition satisfactory Chad Bright Dictated: 04/05/2023 [id number] Transcribed: 04/05/2023 cc:Cassie Lorenz M.D. [facility] Comment on above: Result Comment: Elec tronically Signed By: Nola Zuniga DO\.br\Date and Time Signed: 04/05/23 12:11 EST Operative Report Patient: ELIZABETH SÁNCHEZ Age: 57 years Sex: Female : 1965 Associated Diagnoses: None Author: Nola Zuniga DO Health Status Allergies: Allergic Reactions (Selected) Severity Not Documented Dilantin- Rash. Review / Management Results review: Lab results 04/05/2023 7:49 EST ABO/Rh Interp A POS ABSC Gel Interp Negative . Impression and Plan Diagnosis Pre-op dx-rt knee oa/pain Post-op dx-same Procedure-rt tka Anesthesia-spinal c block EBL-0 TT-see nn To Recovery Room in stable and satisfactory condition.. Normal [facility] Comment on above: Result Comment: Elec tronically Signed By: Nola Zuniga DO\.br\Date and Time Signed: 04/05/23 11:03 EST Patient Education - Texton 0 04-05-2023 Patient Education - Text [facility] DISCHARGE INSTRUCTIONS TOTAL KNEE ARTHROPLASTY INCISION CARE: Mepilex dressing can get wet with showers. Please remove 10 days after surgery per instruction sheet. If jeffery present, please coordinate removal 21 days after surgery with office staff. Please notify the office if any increase in redness, tenderness, drainage, fever, or wound separation is noted beyond this point. MEDICATIONS: You may resume your home medications at the time of discharge. Resume Eliquis twice ad ay for blood clot prevention. Pain medication has been prescribed as well. You may continue to use the pain medication every four hours as needed. Any narcotic pain medication can cause side effects including stomach upset, constipation, or light-headedness. You should not drive or operate machinery, or use alcohol while using the narcotic pain medication. You should not use other pain medications with this prescription pain medication unless further directed by your physician. PHYSICAL THERAPY: Continue the range of motion and strengthening exercises initiated in Physical Therapy in the hospital. [facility] Discharge Instructs for TKA Page 2 Physical Therapy Cont. Continue weight bearing, as ordered, to the operated knee for four to six weeks as directed in Physical Therapy, or until your strength is improved and Physical Therapy will then allow you to progress to full weight. This will be with the use of a walker or crutches initially. Assistive devices can be weaned or modified with physical therapy Physical therapy as begun in the hospital will continue at home, possible with the funeral director's assistant of Home Health Physical Therapy or in the hospital as an outpatient. When you have become independent with the physical therapy program, this will then be discontinued as a supervised program and you will be instructed to continue the physical therapy exercises at home. Your exercises are mario to successful rehabilitation. You should gain full extension first, hopefully before hospital discharge, then continue to do the exercises to maintain this, and gain 90 degrees flexion by one month post-op. Do the exercises daily, twice if preferred. DRIVING: Please do not drive for 4-6 weeks pending therapy progress. 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 It is therefore advised not to drive until after your first office visit following surgery FOLLOW-UP OFFICE VISIT: Nola Zuniga, DO [facility] [address] [place] [address] Reviewed: 06-27 [facility] Progress Note-Physicianon Progress Note-Physician Patient: ELIZABETH SÁNCHEZ Age: 57 years Sex: Female : 1965 Associated Diagnoses: None Author: Yang Acevedo DO Postoperative Information Postoperative disposition: Postoperative disposition: To PACU. Anesthetic utilized: Regional: Spinal. Health Status Allergies: Allergic Reactions (Selected) Severity Not Documented Dilantin- Rash. Current medications: (Selected) Inpatient Medications Ordered Colace 100 mg Cap: 100 mg = 1 cap(s), Cap, Oral, BID, Routine, Start date 04/05/23 21:00:00 EST, 04/05/23 10:00:00 EST Dulcolax 5 mg Tab-EC: 10 mg = 2 tab(s), Tab-EC, Oral, Daily PRN Constipation, Routine, Start date 04/07/23 10:00:00 EST, 04/07/23 10:00:00 EST Eliquis 5 mg oral tablet: 5 mg = 1 tab(s), Tab, Oral, BID, Routine, Start date 04/06/23 9:00:00 EST, 04/06/23 9:00:00 EST HYDROmorphone 1 mg/mL injectable solution: 0.4 mg = 0.4 mL, Injection, IV Push, q4min PRN Pain for 5 dose(s), Stop date Limited # of times, Routine, Start date 04/05/23 11:15:00 EST, 04/05/23 11:15:00 EST HYDROmorphone 1 mg/mL injectable solution: 1 mg = 1 mL, Injection, IV Push, q2hr PRN Pain 8-10 for 5 day(s), Stop date 04/10/23 9:59:00 EST, Routine, Start date 04/05/23 10:00:00 EST, 04/05/23 10:00:00 EST Lactated Ringers IV Nancy 1000 mL 1,000 mL: 1,000 mL, IV, 100 mL/hr, Routine, Start date 04/05/23 11:15:00 EST, 10 hour(s), Total volume (mL): 1,000, 102 kg, 2.24, m2 Lactated Ringers IV Nancy 1000 mL 1,000 mL: 1,000 mL, IV, 150 mL/hr, Routine, Start date 04/05/23 7:00:00 EST, 6.7 hour(s), Total volume (mL): 1,000, 102 kg, 2.24, m2 Lactated Ringers IV Nancy 1000 mL 1,000 mL: 1,000 mL, IV, 80 mL/hr, Routine, Start date 04/05/23 10:00:00 EST, 12.5 hour(s), Total volume (mL): 1,000, 102 kg, 2.24, m2 Milk of Magnesia 8% Susp-Oral: 30 mL, Susp-Oral, Oral, BID PRN Constipation, Routine, Start date 04/05/23 10:00:00 EST Nozin 62% Bottle - POSTOP: 6 drop(s), Soln-Nasal, Nasal, BID, Routine, Start date 04/05/23 21:00:00 EST Pantoprazole [address] Tab: 40 mg = 1 tab(s), Tab-DR, Oral, Daily, Routine, Start date 04/06/23 9:00:00 EST, 04/05/23 10:00:00 EST Phenergan 25 mg/mL Injection: 12.5 mg = 0.5 mL, Injection, IV Push, q2min PRN Other (see comment) for 2 dose(s), Stop date Limited # of times, Routine, Start date 04/05/23 11:15:00 EST, 04/05/23 11:15:00 EST Vitamin C 500 mg Tab: 500 mg = 1 tab(s), Tab, Oral, BIDWM, Routine, Start date 04/05/23 17:00:00 EST, 04/05/23 10:00:00 EST Zofran 4 mg/2 mL Injection: 4 mg = 2 mL, Injection, IV Push, Once PRN Nausea/Vomiting, Routine, Start date 04/05/23 11:15:00 EST, 04/05/23 11:15:00 EST Zofran 4 mg/2 mL Injection: 4 mg = 2 mL, Injection, IV Push, q6hr PRN Nausea/Vomiting, Routine, Start date 04/05/23 10:00:00 EST, 04/05/23 10:00:00 EST acetaminophen-oxycodone 325 mg-5 mg Tab: 1 tab(s), Tab, Oral, q4hr PRN Pain 4-7 for 5 day(s), Stop date 04/10/23 9:59:00 EST, Routine, Start date 04/05/23 10:00:00 EST acetaminophen-oxycodone 325 mg-5 mg Tab: 2 tab(s), Tab, Oral, q4hr PRN Pain 4-7 for 5 day(s), Stop date 04/10/23 9:59:00 EST, Routine, Start date 04/05/23 10:00:00 EST carBAMazepine 100 mg Chew Tab: 100 mg = 1 tab(s), Tab-Chew, Chewed, BID, Routine, Start date 04/01/23 21:00:00 EST, 04/01/23 17:02:00 EST cefazolin additive + Sodium Chloride 0.9% intravenous solution 50 mL: 2 gram = 1 EA, IV Piggyback, q8hr for 2 dose(s), Stop date 04/06/23 1:59:00 EST, Routine, Start date 04/05/23 10:00:00 EST, 100 mL/hr, Infuse over 30 minute(s), 04/05/23 10:00:00 EST famotidine 20 mg Tab: 20 mg = 1 tab(s), Tab, Oral, BID, Routine, Start date 04/06/23 9:00:00 EST ferrous sulfate 325 mg Tab: 325 mg = 1 tab(s), Tab, Oral, BIDWM, Routine, Start date 04/05/23 17:00:00 EST, 04/05/23 10:00:00 EST loratadine 10 mg Tab: 10 mg = 1 tab(s), Tab, Oral, Daily, Routine, Start date 04/06/23 9:00:00 EST montelukast 10 mg Tab: 10 mg = 1 tab(s), Tab, Oral, Daily, Routine, Start date 04/06/23 9:00:00 EST morphine 2 mg/mL Inj: 2 mg = 1 mL, Injection, IV, q4hr PRN Pain 8-10 for 5 day(s), Stop date 04/10/23 9:59:00 EST, Routine, Start date 04/05/23 10:00:00 EST, 04/05/23 10:00:00 EST potassium chloride 10 mEq Cap-ER: 10 mEq = 1 cap(s), Cap-ER, Oral, Daily, Routine, Start date 04/02/23 9:00:00 EST, 04/01/23 17:02:00 EST primidone 50 mg Tab: 50 mg = 1 tab(s), Tab, Oral, Once a day (at bedtime), Routine, Start date 04/01/23 21:00:00 EST, 04/01/23 17:02:00 EST sertraline 25 mg Tab: 25 mg = 1 tab(s), Tab, Oral, Daily, Routine, Start date 04/06/23 9:00:00 EST Prescriptions Prescribed Colace 100 mg Cap: 100 mg = 1 cap(s), Oral, BID, # 20 cap(s), Refills(s) 0, Pharmacy: [facility]/pharmacy #[id number], 177, cm, 03/17/23 13:00:00 EST, Height/Length Dosing, 102, kg, 03/17/23 13:00:00 EST, Weight Dosing Percocet 5 mg-325 mg oral tablet: See Instructions, 50 tab(s), Refill(s) 0, Take one to two oral every 4 hours as needed for knee surgical pain., [facility]/pharmacy #[id number], 177, cm, 03/17/23 13:00:00 EST, Height/Length Dosing, 102, kg, 03/17/23 13:00:00 EST, W (more content not included)... [facility] Comment on above: Result Comment: Elec tronically Signed By: Yang Acevedo DO\.br\Date and Time Signed: 04/05/23 11:39 EST Progress Note-Physician Patient: ELIZABETH SÁNCHEZ Age: 57 years Sex: Female : 1965 Associated Diagnoses: None Author: Yang Acevedo DO Preoperative Information Anesthesia history: Patient history: None. Family history+: None. Anesthesia results Informed consent: Signed by patient. Including risks, benefits, and alternatives related to the: Anesthetic plan, Postoperative pain management plan. Re-evaluation prior to induction: Yang Acevedo DO. Health Status Allergies: Allergic Reactions (Selected) Severity Not Documented Dilantin- Rash., Allergies (1) Active Reaction Dilantin Rash Current medications: (Selected) Inpatient Medications Ordered Colace 100 mg Cap: 100 mg = 1 cap(s), Cap, Oral, BID, Routine, Start date 04/05/23 21:00:00 EST, 04/05/23 10:00:00 EST Dulcolax 5 mg Tab-EC: 10 mg = 2 tab(s), Tab-EC, Oral, Daily PRN Constipation, Routine, Start date 04/07/23 10:00:00 EST, 04/07/23 10:00:00 EST Eliquis 5 mg oral tablet: 5 mg = 1 tab(s), Tab, Oral, BID, Routine, Start date 04/06/23 9:00:00 EST, 04/06/23 9:00:00 EST HYDROmorphone 1 mg/mL injectable solution: 1 mg = 1 mL, Injection, IV Push, q2hr PRN Pain 8-10 for 5 day(s), Stop date 04/10/23 9:59:00 EST, Routine, Start date 04/05/23 10:00:00 EST, 04/05/23 10:00:00 EST Lactated Ringers IV Nancy 1000 mL 1,000 mL: 1,000 mL, IV, 150 mL/hr, Routine, Start date 04/05/23 7:00:00 EST, 6.7 hour(s), Total volume (mL): 1,000, 102 kg, 2.24, m2 Lactated Ringers IV Nancy 1000 mL 1,000 mL: 1,000 mL, IV, 80 mL/hr, Routine, Start date 04/05/23 10:00:00 EST, 12.5 hour(s), Total volume (mL): 1,000, 102 kg, 2.24, m2 Milk of Magnesia 8% Susp-Oral: 30 mL, Susp-Oral, Oral, BID PRN Constipation, Routine, Start date 04/05/23 10:00:00 EST Nozin 62% Bottle - POSTOP: 6 drop(s), Soln-Nasal, Nasal, BID, Routine, Start date 04/05/23 21:00:00 EST Pantoprazole [address] Tab: 40 mg = 1 tab(s), Tab-DR, Oral, Daily, Routine, Start date 04/06/23 9:00:00 EST, 04/05/23 10:00:00 EST Vitamin C 500 mg Tab: 500 mg = 1 tab(s), Tab, Oral, BIDWM, Routine, Start date 04/05/23 17:00:00 EST, 04/05/23 10:00:00 EST Zofran 4 mg/2 mL Injection: 4 mg = 2 mL, Injection, IV Push, q6hr PRN Nausea/Vomiting, Routine, Start date 04/05/23 10:00:00 EST, 04/05/23 10:00:00 EST acetaminophen-oxycodone 325 mg-5 mg Tab: 1 tab(s), Tab, Oral, q4hr PRN Pain 4-7 for 5 day(s), Stop date 04/10/23 9:59:00 EST, Routine, Start date 04/05/23 10:00:00 EST acetaminophen-oxycodone 325 mg-5 mg Tab: 2 tab(s), Tab, Oral, q4hr PRN Pain 4-7 for 5 day(s), Stop date 04/10/23 9:59:00 EST, Routine, Start date 04/05/23 10:00:00 EST carBAMazepine 100 mg Chew Tab: 100 mg = 1 tab(s), Tab-Chew, Chewed, BID, Routine, Start date 04/01/23 21:00:00 EST, 04/01/23 17:02:00 EST cefazolin additive + Sodium Chloride 0.9% intravenous solution 50 mL: 2 gram = 1 EA, IV Piggyback, q8hr for 2 dose(s), Stop date 04/06/23 1:59:00 EST, Routine, Start date 04/05/23 10:00:00 EST, 100 mL/hr, Infuse over 30 minute(s), 04/05/23 10:00:00 EST cefazolin additive + Sodium Chloride 0.9% intravenous solution 50 mL: 2 gram = 1 EA, Powder-Inj, IV Piggyback, PREOP, Routine, Start date 04/05/23 7:00:00 EST, 100 mL/hr, Infuse over 30 minute(s) famotidine 20 mg Tab: 20 mg = 1 tab(s), Tab, Oral, BID, Routine, Start date 04/06/23 9:00:00 EST ferrous sulfate 325 mg Tab: 325 mg = 1 tab(s), Tab, Oral, BIDWM, Routine, Start date 04/05/23 17:00:00 EST, 04/05/23 10:00:00 EST loratadine 10 mg Tab: 10 mg = 1 tab(s), Tab, Oral, Daily, Routine, Start date 04/06/23 9:00:00 EST montelukast 10 mg Tab: 10 mg = 1 tab(s), Tab, Oral, Daily, Routine, Start date 04/06/23 9:00:00 EST morphine 2 mg/mL Inj: 2 mg = 1 mL, Injection, IV, q4hr PRN Pain 8-10 for 5 day(s), Stop date 04/10/23 9:59:00 EST, Routine, Start date 04/05/23 10:00:00 EST, 04/05/23 10:00:00 EST potassium chloride 10 mEq Cap-ER: 10 mEq = 1 cap(s), Cap-ER, Oral, Daily, Routine, Start date 04/02/23 9:00:00 EST, 04/01/23 17:02:00 EST primidone 50 mg Tab: 50 mg = 1 tab(s), Tab, Oral, Once a day (at bedtime), Routine, Start date 04/01/23 21:00:00 EST, 04/01/23 17:02:00 EST sertraline 25 mg Tab: 25 mg = 1 tab(s), Tab, Oral, Daily, Routine, Start date 04/06/23 9:00:00 EST Prescriptions Prescribed Colace 100 mg Cap: 100 mg = 1 cap(s), Oral, BID, # 20 cap(s), Refills(s) 0, Pharmacy: [facility]/pharmacy #[id number], 177, cm, 03/17/23 13:00:00 EST, Height/Length Dosing, 102, kg, 03/17/23 13:00:00 EST, Weight Dosing Percocet 5 mg-325 mg oral tablet: See Instructions, 50 tab(s), Refill(s) 0, Take one to two oral every 4 hours as needed for knee surgical pain., [facility]/pharmacy #[id number], 177, cm, 03/17/23 13:00:00 EST, Height/Length Dosing, 102, kg, 03/17/23 13:00:00 EST, Weight Dosing Documented Medications Documented Eliquis 5 mg oral tablet: 5 mg = 1 tab(s), Oral, BID, Refills(s) 0, Blood Thinner Oyster Shell Calcium 1250 mg (500 mg elemental calcium) oral tablet: 1,250 mg = 1 tab(s), Oral, Daily, Refills(s) 0, Prophylaxis Potassium Chloride ( (more content not included)... Normal [facility] Comment on above: Result Comment: Elec tronically Signed By: Yang Acevedo DO\.br\Date and Time Signed: 04/05/23 08:19 EST UA With Cult Reflexon 2023 Bilirubin Ql (U) Negative Normal Negative [facility] Comment on above: Performed By: #### 1 [id number] ####[facility] [address] [place] [address] Clarity (U) CLEAR Normal Clear [facility] Comment on above: Performed By: #### 1 [id number] ####[facility] [address] [place] [address] Color (U) YELLOW Normal Yellow [facility] Comment on above: Performed By: #### 1 [id number] ####[facility] [address] [place] [address] Epithelial cells.squamous LM.HPF (Urine sed) [#/Area] 0-2 Normal 0-2 [facility] Comment on above: Performed By: #### 1 [id number] ####[facility] [address] [place] [address] Glucose Test strip (U) [Mass/Vol] Negative Normal Negative [facility] Comment on above: Performed By: #### 1 [id number] ####[address] [place] [address] Hemoglobin Ql (U) Negative Normal Negative [facility] Comment on above: Performed By: #### 1 [id number] ####[address] [place] [address] Ketones (U) [Mass/Vol] Negative Normal Negative [facility] Comment on above: Performed By: #### 1 [id number] ####[address] [address] [place].plasma/Lithi um.RBC (Bld) [Mass ratio] 0-3 Normal 0-3 [facility] Comment on above: Performed By: #### 1 [id number] ####[address] [place] [address] Nitrite Ql (U) Negative Normal Negative [facility] Comment on above: Performed By: #### 1 8108360 ####[address] [address] pH (U) 7.0 [pH] Invalid Interpretation Code 5.0-9.0 [facility] Comment on above: Performed By: #### 1 [id number] ####[address] [place] [address] Protein (U) [Mass/Vol] Negative Normal Negative [facility] Comment on above: Performed By: #### 1 [id number] ####[address] [place] [address] Specific gravity (U) [Rel density] 1.020 Invalid Interpretation Code 1.005-1.030 [facility] Comment on above: Performed By: #### 1 [id number] ####[place] [address] [address] Type of Urine collection method Velasquez Normal [facility] Comment on above: Performed By: #### 1 [id number] ####[address] [place] [address] Urobilinogen Qn (U) 0.2 {Amina'U}/dL Normal 0.0-1.0 [facility] Comment on above: Performed By: #### 1 [id number] ####[facility] [address] [place] [address] WBC Auto Ql (U) Negative Normal Negative [facility] Comment on above: Performed By: #### 1 [id number] ####[address] [address] WBC LM.HPF (Urine sed) [#/Area] 0-5 Normal 0-5 [facility] Comment on above: Performed By: #### 1 [id number] ####[address] [address] XR Knee 1 or 2 Views Righton 04-05-2023 XR Knee 1 or 2 Views Right Exam Date/Time: 04/05/2023 11:18 EST Reason for Exam: Post-op evaluation;Other (please specify) Report IMPRESSION: POSTSURGICAL CHANGES OF RIGHT TOTAL KNEE ARTHROPLASTY. EXAM: XR Knee 1 or 2 Views Right HISTORY: Postoperative evaluation total knee arthroplasty TECHNIQUE: Frontal and lateral views of the knee COMPARISON: Radiograph 01/06/2023 FINDINGS: Postsurgical changes of total knee arthroplasty including soft tissue emphysema. Alignment is anatomic. No periprosthetic abnormality. Ordering Provider: Nola Zuniga FINAL REPORT Dictated: 04/05/2023 2:12 pm Andre Kitchen DO Signed (Electronic Signature): 04/05/2023 2:12 pm Signed by: Andre Kitchen DO Transcribed by: CESAR Technologist: CECELIA Technical Comments Radiation Dose: Ka,r in mGy = na DAP = na Normal [facility] Outpatient Surgery Discharge Instructionon 04-01-2023 Outpatient Surgery Discharge Instruction [address] [address] Patient Discharge Instructions PERSON INFORMATION Name: ELIZABETH SÁNCHEZ Date of : 1965 Current Date: 04/01/2023 17:04:18 PHYSICIANS Admitting Physician: Nola Zuniga DO Discharge Diagnosis: Osteoarthritis of right knee ELIZABETH SÁNCHEZ has been given the following list of follow-up instructions, prescriptions, and patient education materials: PATIENT FOLLOW-UP INFORMATION Diet: Regular, Drink liquids and eat a light meal Discharge Activity: Ambulate as tolerated, Arrange for a responsible adult supervision for 24 hours, Expect mild pain, Expect minimal amount of drainage and/or bleeding, Do not lift more than 5 lbs Discharge Restrictions: No driving, Do not operate machinery or tools, Do not make important decisions for 24 hours, Do not drink alcoholic beverages for 24 hours Call Your Doctor For: Persistent or heavy bleeding, Temperature above 101.5 degrees, Redness, swelling, or pus at operative site, Severe pain at the operative site, Persistent vomiting Wound Care Instructions: Remove dressing as instructed Remove Your Dressing In 10 Days IF UNABLE TO CONTACT YOUR PHYSICIAN AND YOU FEEL IT IS AN EMERGENCY, GO TO THE NEAREST EMERGENCY ROOM OR CALL 911 Guy ELIZABETH SÁNCHEZ, have received the attached patient education materials/instructions and have verbalized understanding: May we do a follow up call? Yes No I was present when discharge instructions were given Patient Signature Date Clinican/Nurse Signature _ Date Follow up: With: Address: When: Nola Zuniga [address] [place] [address] Business (1) Comments: Keep scheduled appointment Type Location Start [facility] Surgery [facility] 04/05/2023 10:00 AM 04/05/2023 11:00 AM Confirmed Pharmacy Information: You may receive a survey from [employer] asking you to rate your care experience. Your feedback is important and will help us understand what we do well and how we can improve the quality of care we provide to you, your loved ones and our community. It?s an honor to serve you. Thank you for choosing [facility] HERE ARE THE MEDICATION CHANGES THAT OCCURRED DURING YOUR HOSPITAL STAY Medications to Continue with No Changes Other Medications apixaban (Eliquis 5 mg oral tablet) 1 Tablets By Mouth 2 times a day. calcium carbonate (Oyster Shell Calcium 1250 mg (500 mg elemental calcium) oral tablet) 1 Tablets By Mouth every day. carbamazepine (Tegretol XR 200 mg oral tablet, extended release) 1 Tablets By Mouth every day. cetirizine (cetirizine 10 mg Tab) 1 Tablets By Mouth every day. cholecalciferol (cholecalciferol 2000 intl units oral tablet (Vitamin D3)) 1 Tablets By Mouth every day. famotidine (famotidine 20 mg Tab) 1 Tablets By Mouth 2 times a day. montelukast (montelukast 10 mg Tab) 1 Tablets By Mouth every day. potassium chloride (Potassium Chloride (Nid-Oxvp-Hmx 10) 10 mEq oral tablet, extended release) 1 Tablets By Mouth every day. primidone (primidone 50 mg Tab) 1 Tablets By Mouth once a day (at bedtime). sertraline (sertraline 25 mg Tab) 1 Tablets By Mouth every day. PATIENT EDUCATION INFORMATION Instructions: [place], [place] [facility] DISCHARGE INSTRUCTIONS TOTAL KNEE ARTHROPLASTY INCISION CARE: Mepilex dressing can get wet with showers. Please remove 10 days after surgery per instruction sheet. If jeffery present, please coordinate removal 21 days after surgery with office staff. Please notify the office if any increase in redness, tenderness, drainage, fever, or wound separation is noted beyond this point. MEDICATIONS: You may resume your home medications at the time of discharge. Resume Eliquis twice ad ay for blood clot prevention. Pain medication has been prescribed as well. You may continue to use the pain medication every four hours as needed. Any narcotic pain medication can cause side effects including stomach upset, constipation, or light-headedness. You should not drive or operate machinery, or use alcohol while using the narcotic pain medication. You should not use other pain medications with this prescription pain medication unless further directed by your physician. PHYSICAL THERAPY: Continue the range of motion and strengthening exercises initiated in Physical Therapy in the hospital. [facility] Discharge Instructs for TKA Page 2 Physical Therapy Cont. Continue weight bearing, as ordered, to the operated knee for four to six weeks as directed in Physical Therapy, or until y (more content not included)... Normal [facility] Consent for Procedure/Surger yon 03-31-2023 Consent for Procedure/Surgery [id number] TIFF Normal [facility] C Urineon 03-19-2023 Bacteria identified Cx Nom [...] Locations R1: This test was performed at: [facility], [address] [place] [address], [address] , , Normal [facility] Comment on above: Performed By: #### 1 [id number], [id number] ####[facility] [address] [place] [address] ABO/Rh Retypeon 03-17-2023 ABO/Rh Retype Interp Positive Invalid Interpretation Code [facility] Comment on above: Performed By: #### 1 [id number] ####[facility] [address] [place] [address] Auto Diffon 03-17-2023 Basophils/100 WBC (Bld) 0.1 % Normal 0.0-2.0 [facility] Comment on above: Order Comment: Order Added by Discern Expert. Performed By: #### 2 016965, 7311252, 5608096, 37855465 ####[address] [address] Basophils/Leukocytes Auto (Bld) [Pure # fraction] 0.0 E9/L Normal 0.0-0.2 [facility] Comment on above: Order Comment: Order Added by Discern Expert. Performed By: #### 2 408028, 7145713, 7161853, 78904562 ####[address] [address] Eosinophils/100 WBC (Bld) 0.0 % Normal 0.0-8.0 [facility] Comment on above: Order Comment: Order Added by Discern Expert. Performed By: #### 2 608024, 7029919, 0092405, [id number] ####[address] [address] Eosinophils/Leukocyt es Auto (Bld) [Pure # fraction] 0.0 E9/L Normal 0.0-0.5 [facility] Comment on above: Order Comment: Order Added by Discern Expert. Performed By: #### 2 474245, 1350412, 3765087, 70411927 ####[address] [address] Lymphocytes/100 WBC (Bld) 29.6 % Normal 14.0-50.0 [facility] Comment on above: Order Comment: Order Added by Discern Expert. Performed By: #### 2 137502, 6550482, 5910259, 30447946 ####[address] [address] Lymphocytes/Leukocyt es Auto (Bld) [Pure # fraction] 1.4 E9/L Normal 1.0-4.0 [facility] Comment on above: Order Comment: Order Added by Discern Expert. Performed By: #### 2 572941, 1741323, 3741719, 22437306 ####[facility] [address] [place] [address] Monocytes/100 WBC (Bld) 10.4 % Normal 4.0-14.0 [facility] Comment on above: Order Comment: Order Added by Discern Expert. Performed By: #### 2 660965, 5878947, 8411768, 34414772 ####[address] [address] Monocytes/Leukocytes Auto (Bld) [Pure # fraction] 0.5 E9/L Normal 0.2-1.0 [facility] Comment on above: Order Comment: Order Added by Discern Expert. Performed By: #### 2 043559, 4556632, 8131855, 29989661 ####[address] [address] Neutrophils/100 WBC (Bld) 59.9 % Normal 36.0-75.0 [facility] Comment on above: Order Comment: Order Added by Discern Expert. Performed By: #### 2 700153, 8274174, 6122390, 77574310 ####[address] [place] [address] Neutrophils/Leukocyt es Auto (Bld) [Pure # fraction] 2.9 E9/L Normal 2.0-7.5 [facility] Comment on above: Order Comment: Order Added by Discern Expert. Performed By: #### 2 831759, 6473545, 4747692, 31749053 ####[address] [place] [address] BLOOD BANKOrdered By: Mckenzie Bosch on 03-17-2023 ABO/Rh Retype Interp Positive Invalid Interpretation Code [facility] BB Subsection BMPon 03-17-2023 Anion gap [Moles/Vol] 10 mmol/L Normal 6-16 [facility] Comment on above: Performed By: #### 2 637001, 6363982, 8363249, 34633676 ####[facility] [address] [place] [address] BUN/Creat Ratio 31 No Units High 10-20 [facility] Comment on above: Performed By: #### 2 696744, 4525094, 8234073, 37022046 ####[facility] [address] [place] [address] Calcium [Mass/Vol] 9.2 mg/dL Normal 8.9-11.1 [facility] Comment on above: Performed By: #### 2 782260, 5870612, 9442929, 62385127 ####[facility] [address] [place] [address] Chloride [Moles/Vol] 106 mmol/L Normal 101-111 [facility] Comment on above: Performed By: #### 2 648445, 6760699, 6202312, 43447104 ####[facility] [address] [place] [address] CO2 [Moles/Vol] 29 mmol/L Normal 21-31 [facility] Comment on above: Performed By: #### 2 426065, 8442226, 2982011, 41185456 ####[facility] [address] [place] [address] Creatinine [Mass/Vol] 0.8 mg/dL Normal 0.5-1.3 [facility] Comment on above: Performed By: #### 2 022263, 1432394, 9414800, 45883942 ####[facility] [address] [place] [address] Glucose [Mass/Vol] 75 mg/dL Normal 55-199 [facility] Comment on above: Performed By: #### 2 821321, 0448404, 4398195, 77001920 ####[facility] [address] [place] [address] Potassium [Moles/Vol] 3.9 mmol/L Normal 3.5-5.3 [facility] Comment on above: Performed By: #### 2 017291, 8838598, 8567458, 63695525 ####[facility] [address] [place] [address] Sodium [Moles/Vol] 141 mmol/L Normal 135-145 [facility] Comment on above: Performed By: #### 2 829357, 3756017, 5939133, 73688325 ####[address] [place] [address] Urea nitrogen [Mass/Vol] 25 mg/dL High 5-21 [facility] Comment on above: Performed By: #### 2 993987, 7998519, 6298891, 87628319 ####[address] [address] CBC w/ Auto Diffon Erythrocyte distribution width (RBC) [Ratio] 13.4 % Normal 10.9-14.2 [facility] Comment on above: Performed By: #### 2 647726, 6008519, 8562693, 89380347 ####[address] [place] [address] Hematocrit (Bld) [Volume fraction] 39.0 % Normal 34.0-46.0 [facility] Comment on above: Performed By: #### 2 803463, 1944134, 8921748, 54351127 ####[address] [place] [address] Hemoglobin (Bld) [Mass/Vol] 13.6 g/dL Normal 12.0-16.0 [facility] Comment on above: Performed By: #### 2 352603, 0170248, 0327359, 71306769 ####[address] [place] [address] MCH (RBC) [Entitic mass] 31.6 pg Normal 27.0-34.0 [facility] Comment on above: Performed By: #### 2 574683, 8408190, 5003904, 60157211 ####[address] [address] MCHC (RBC) [Mass/Vol] 34.8 g/dL Normal 31.4-36.0 [facility] Comment on above: Performed By: #### 2 242789, 2626361, 4213420, 61859918 ####[address] [address] MCV (RBC) [Entitic vol] 90.9 fL Normal 80.0-100.0 [facility] Comment on above: Performed By: #### 2 071877, 4010162, 8160709, 12940755 ####[address] [address] Platelet mean volume (Bld) [Entitic vol] 8.0 fL Normal 6.4-10.8 [facility] Comment on above: Performed By: #### 2 703939, 5305246, 8066824, 94395048 ####[address] [address] Platelets (Bld) [#/Vol] 253.0 E9/L Normal 150.0-500.0 [facility] Comment on above: Performed By: #### 2 178435, 3046717, 9834540, 71682099 ####[address] [address] RBC (Bld) [#/Vol] 4.3 E12/L Normal 4.3-5.9 [facility] Comment on above: Performed By: #### 2 823652, 0096949, 2699694, 44952021 ####[address] [address] WBC corrected for nucl RBC Auto (Bld) [#/Vol] 4.8 E9/L Normal 4.0-11.0 [facility] Comment on above: Performed By: #### 2 663287, 8154122, 7070804, 25673019 ####[address] [place] [address] CHEMISTRYOrdered By: SYSTEM SYSTEM on 03-17-2023 Anion [...] mg/dL Remisol Chem eGFR mL/min/1.73 m2 Normal >=59mL/min/ 1.73 m2 Remisol Chem Glucose [Mass/Vol] 75 mg/dL [...] Consent for Treatmenton 02-20 Consent for Treatment [id number] IFF Normal [facility] HEMATOLOGYOrdered By: SYSTEM SYSTEM on 03-17-2023 [...] 13.4 % Normal 10.9 - 14.2 % [facility] HemeAutoSS Hematocrit (Bld) [Volume fraction] 39.0 % Normal 34.0 - 46.0 % [facility] HemeAutoSS Hemoglobin (Bld) [Mass/Vol] 13.6 g/dL Normal 12.0 - 16.0 gm/dL [facility] HemeAutoSS MCH (RBC) [Entitic mass] 31.6 pg Normal 27.0 - 34.0 pg [facility] HemeAutoSS MCHC (RBC) [Mass/Vol] 34.8 g/dL Normal 31.4 - 36.0 gm/dL [facility] HemeAutoSS MCV (RBC) [Entitic vol] 90.9 fL Normal 80.0 - 100.0 fL [facility] HemeAutoSS Platelet mean volume (Bld) [Entitic vol] 8.0 fL Normal 6.4 - 10.8 fL [facility] HemeAutoSS Platelets (Bld) [#/Vol] 253.0 E9/L Normal 150.0 - 500.0 E9/L [facility] HemeAutoSS RBC (Bld) [#/Vol] 4.3 E12/L Normal 4.3 - 5.9 E12/L [facility] HemeAutoSS WBC corrected for nucl RBC Auto (Bld) [#/Vol] 4.8 E9/L Normal 4.0 - 11.0 E9/L FT HemeAutoSS UA With Cult Reflexon 2022 Bacteria LM Ql (Urine sed) 3+ /HPF Abnormal Trace [facility] Comment on above: Performed By: #### 1 6924551, 5309302 ####[facility] [address] [place] [address] Bilirubin Ql (U) Negative Normal Negative [facility] Comment on above: Performed By: #### 1 4583451, 0281295 ####[facility] [address] [place] [address] Clarity (U) SL CLOUDY Invalid Interpretation Code [facility] Comment on above: Performed By: #### 1 3947323, 2810128 ####[facility] [address] [place] [address] Color (U) YELLOW Normal Yellow [facility] Comment on above: Performed By: #### 1 6698007, 0025571 ####[facility] [address] [place] [address] Epithelial cells.squamous LM.HPF (Urine sed) [#/Area] 5-8 Normal 0-2 [facility] Comment on above: Performed By: #### 1 3001780, 4655744 ####[facility] [address] [place] [address] Glucose Test strip (U) [Mass/Vol] Negative Normal Negative [facility] Comment on above: Performed By: #### 1 5141687, 2711936 ####[facility] [address] [place] [address] Hemoglobin Ql (U) Negative Normal Negative [facility] Comment on above: Performed By: #### 1 4500663, 0443236 ####[facility] [address] [place] [address] Ketones (U) [Mass/Vol] Negative Normal Negative [facility] Comment on above: Performed By: #### 1 1477430, 9407672 ####[facility] [address] [place] [address] [place].plasma/Lithi um.RBC (Bld) [Mass ratio] 0-3 Normal 0-3 [facility] Comment on above: Performed By: #### 1 0944320, 9935399 ####[address] [address] Nitrite Ql (U) Positive Abnormal Negative [facility] Comment on above: Performed By: #### 1 0276180, 7775429 ####[address] [address] pH (U) 6.0 [pH] Invalid Interpretation Code 5.0-9.0 [facility] Comment on above: Performed By: #### 1 5265386, 3214385 ####[address] [address] Protein (U) [Mass/Vol] Negative Normal Negative [facility] Comment on above: Performed By: #### 1 9017190, 7380899 ####[address] [address] Specific gravity (U) [Rel density] 1.025 Invalid Interpretation Code 1.005-1.030 [facility] Comment on above: Performed By: #### 1 3301489, 6455443 ####[place] [address] Type of Urine collection method Clean Catch Normal [facility] Comment on above: Performed By: #### 1 1396837, 5084660 ####[address] [address] Urobilinogen Qn (U) 0.2 {Amina'U}/dL Normal 0.0-1.0 [facility] Comment on above: Performed By: #### 1 4062739, 4176311 ####[address] [address] WBC Auto Ql (U) 1+ Abnormal Negative [facility] Comment on above: Performed By: #### 1 1001515, 9531770 ####[address] [address] WBC LM.HPF (Urine sed) [#/Area] 6-15 Abnormal 0-5 [facility] Comment on above: Performed By: #### 1 6475363, 6076685 ####[place] [facility] [address] [place] [address] URINALYSISOrdered By: Gracie Villegas on 03-17-2023 Bacteria LM Ql (Urine sed) 3+ /HPF Invalid Interpretation Code Trace/HPF [facility] UA Auto SS Bilirubin Ql (U) Negative (03/17/23 8:49 AM) Normal Negative [facility] UA Auto SS Clarity (U) SL CLOUDY Invalid Interpretation Code [facility] UA Auto SS Color (U) Yellow (03/17/23 8:49 AM) Normal Yellow [facility] UA Auto SS Epithelial cells.squamous LM.HPF (Urine sed) [#/Area] 5-8 /HPF Normal 0-2/HPF [facility] UA Auto SS Glucose Test strip (U) [Mass/Vol] Negative (03/17/23 8:49 AM) Normal Negative [facility] UA Auto SS Hemoglobin Ql (U) Negative (03/17/23 8:49 AM) Normal Negative [facility] UA Auto SS Ketones (U) [Mass/Vol] Negative (03/17/23 8:49 AM) Normal Negative [facility] UA Auto SS [place].plasma/[place]ith[place] um.RBC (Bld) [Mass ratio] 0-3 /HPF Normal 0-3/HPF [facility] UA Auto SS Nitrite Ql (U) Positive *ABN* (03/17/23 8:49 AM) Invalid Interpretation Code Negative [facility] UA Auto SS pH (U) 6.0 *NA* (03/17/23 8:49 AM) Invalid Interpretation Code 5.0 - 9.0 [facility] UA Auto SS Protein (U) [Mass/Vol] Negative (03/17/23 8:49 AM) Normal Negative [facility] UA Auto SS Specific gravity (U) [Rel density] 1.025 *NA* (03/17/23 8:49 AM) Invalid Interpretation Code 1.005 - 1.030 [facility] UA Auto SS UA Spec Desc Clean Catch (03/17/23 8:49 AM) Normal [facility] UA Auto SS Urobilinogen Qn (U) 0.8881590 {Amina'U}/dL Normal 0.0 - 1.0 EU/dL [facility] UA Auto SS WBC Auto Ql (U) 1+ *ABN* (03/17/23 8:49 AM) Invalid Interpretation Code Negative [facility] UA Auto SS WBC LM.HPF (Urine sed) [#/Area] 6-15 /HPF Invalid Interpretation Code 0-5/HPF [facility] UA Auto SS XR Chest 2 Viewson [...] mGy = 0 DAP = 0 Normal [facility] eGFRon 03-17-2023 GFR/1.73 sq M.predicted among non-blacks MDRD (S/P/Bld) [Vol rate/Area] mL/min/{1.73_m2} Normal >=59 [facility] Comment on above: Order Comment: Order added by Discern Expert. Performed By: #### 2 [id number] ####[facility] [id number] [place] [address] Physician Orderon 02-10-2023 Physician Order [id number] TIFF Normal [facility] MG MAMM SCREEN 3D ANA CADon 07-21-2022 MG MAMM SCREEN 3D ANA CAD Patient: ELIZABETH SÁNCHEZ Exam Date: 07/21/2022 : 1965 Gender:F Ordering : DR CASSIE LORENZ M.D. Admission #: [id number] Family : Order #: [id number] CLICK HERE TO VIEW EXAM RADIOLOGY REPORT [...] Treatments None Family Cancers None LOCATION: [facility] BREAST COMPOSITION: Scattered areas fibroglandular density. [...] LUMP SHOULD BE BIOPSIED. Dictated by: Bakari Solo MD on 07/22/2022 at 09:08 Approved by: Bakari Solo MD on 07/22/2022 at 09:11 Normal [facility] ECG 12 lead ECGon 02-20-2021 ECG 12 lead ECG [facility] [place] [address] [place] [address] Electrocardiograph Report Signed Patient: Elizabeth Sánchez MR#: [id number] : 1965 Acct:[id number] Age/Sex: 55 / F ADM Date: 02/14/21 Loc: Room: 9G3267-9 Type: ADM IN Attending Dr: Giovanni Haider [...] supraventricular complexes are now present Confirmed by JOHN ACUNA, HINA ([id number]) on 02/21/2021 1:24:18 PM Referred By: Juan Carlos Overton Electronically Signed By:HINA LOPEZ MD Transcribed By: MUS Signed By Hina Lopez MD 1 04/24/20 1324 [facility] Stool Occult Blood (Guaiac)o n 02-17-2021 Stool Occult Blood (Guaiac) Occult Blood Negative for Occult Blood by Guaiac Methodology Reference range = Negative PERFORMED BY: [place] [address] PATHOLOGIST [employer] REPRESENTATIVE DANIELLE ANDERSON M.D. [facility] Comment on above: Performed By: #### A BG #### Point of Care testing , Comprehensive Metabolic Pane veronique 02-15-2021 Albumin [Mass/Vol] 2.3 g/dL Low 3.2-5.5 [facility] Comment on above: Performed By: #### H EPATIC, PHOS, MG, HS TROP, CBC, BMP #### [facility] [address] [place] [address] Albumin/Globulin [Mass ratio] 0.9 {ratio} [facility] Comment on above: Performed By: #### H EPATIC, PHOS, MG, HS TROP, CBC, BMP #### [facility] [address] [place] [address] [place] ALP [Catalytic activity/Vol] 66 U/L Normal 32-92 [facility] Comment on above: Performed By: #### H EPATIC, PHOS, MG, HS TROP, CBC, BMP #### [facility] [address] [place] [address] [place] ALT [Catalytic activity/Vol] 52 U/L Normal 10-60 [facility] Comment on above: Performed By: #### H EPATIC, PHOS, MG, HS TROP, CBC, BMP #### [facility] [address] [place] [address] [place] AST [Catalytic activity/Vol] 61 U/L High 10-42 [facility] Comment on above: Performed By: #### H EPATIC, PHOS, MG, HS TROP, CBC, BMP #### [facility] [address] Bilirubin [Mass/Vol] 0.3 mg/dL Normal 0.3-1.2 [facility] Comment on above: Performed By: #### H EPATIC, PHOS, MG, HS TROP, CBC, BMP #### [facility] [address] Calcium [Mass/Vol] 8.4 mg/dL Normal 8.2-10.2 [facility] Comment on above: Performed By: #### H EPATIC, PHOS, MG, HS TROP, CBC, BMP #### [facility] [address] Chloride [Moles/Vol] 106 mmol/L Normal 95-114 [facility] Comment on above: Performed By: #### H EPATIC, PHOS, MG, HS TROP, CBC, BMP #### [facility] [address] [place] [address] CO2 [Moles/Vol] 25.8 mmol/L Normal 22.0-30.0 [facility] Comment on above: Performed By: #### H EPATIC, PHOS, MG, HS TROP, CBC, BMP #### [facility] [address] [place] [address] Creatinine [Mass/Vol] 0.64 mg/dL Normal 0.44-1.03 [facility] Comment on above: Performed By: #### H EPATIC, PHOS, MG, HS TROP, CBC, BMP #### [facility] [address] [place] [address] [place] Creatinine Clr Calc Pharmacy 121.10 [facility] Comment on above: Performed By: #### H EPATIC, PHOS, MG, HS TROP, CBC, BMP #### [facility] [address] [place] [address] Estimated GFR ( Prerna > 60 [facility] Comment on above: Result Comment: GFR estimated reference range: According to KDOQI guidelines, <60 ml/min/1.73m2 is sufficient to diagnose a patient with chronic kidney disease. Performed By: #### H EPATIC, PHOS, MG, HS TROP, CBC, BMP #### [address] Estimated GFR (Non- Am > 60 Normal [facility] Comment on above: Performed By: #### H EPATIC, PHOS, MG, HS TROP, CBC, BMP #### [address] Globulin (S) [Mass/Vol] 2.7 g/dL Normal [facility] Comment on above: Performed By: #### H EPATIC, PHOS, MG, HS TROP, CBC, BMP #### [address] Glucose [Mass/Vol] 116 mg/dL High 70-100 [facility] Comment on above: Result Comment: [facility] Glucose Reference Range is dependent on time and content of last meal. Glucose of more than 200 mg/dL in a nonstressed, ambulatory subject supports the diagnosis of Diabetes Mellitus. ADA recommended reference range Performed By: #### H EPATIC, PHOS, MG, HS TROP, CBC, BMP #### [address] Potassium [Moles/Vol] 4.2 mmol/L Normal 3.5-5.1 [facility] Comment on above: Performed By: #### H EPATIC, PHOS, MG, HS TROP, CBC, BMP #### [address] Protein [Mass/Vol] 5.0 g/dL Low 6.1-7.9 [facility] Comment on above: Performed By: #### H EPATIC, PHOS, MG, HS TROP, CBC, BMP #### [address] Sodium [Moles/Vol] 141 mmol/L Normal 136-146 [facility] Comment on above: Performed By: #### H EPATIC, PHOS, MG, HS TROP, CBC, BMP #### [facility] [address] [place] [address] [place] Urea nitrogen [Mass/Vol] 8 mg/dL Low 9-23 [facility] Comment on above: Performed By: #### H EPATIC, PHOS, MG, HS TROP, CBC, BMP #### [facility] [address] [place] [address] [place] Diff and CBCon 02-15-2021 Erythrocyte distribution width (RBC) [Ratio] 13.4 % Normal 11.9-15.3 [facility] Comment on above: Performed By: #### A BG #### Point of Care testing , Hematocrit (Bld) [Volume fraction] 30.8 % Low 34.0-46.4 [facility] Comment on above: Performed By: #### A BG #### Point of Care testing , Hemoglobin (Bld) [Mass/Vol] 10.3 g/dL Low 11.8-15.4 [facility] Comment on above: Performed By: #### A BG #### Point of Care testing , Lymphocytes/100 WBC (Bld) 41 % Normal 18-42 [facility] Comment on above: Performed By: #### A BG #### Point of Care testing , MCH (RBC) [Entitic mass] 32.2 pg Normal 24.7-34.3 [facility] Comment on above: Performed By: #### A BG #### Point of Care testing , MCV (RBC) [Entitic vol] 96.8 fL Normal 80-100 [facility] Comment on above: Performed By: #### A BG #### Point of Care testing , Mean Corpuscular HGB Conc 33.3 g/dL Normal 32.0-35.0 [facility] Comment on above: Performed By: #### A BG #### Point of Care testing , Metamyelocytes 2 % High 0-0 [facility] Comment on above: Performed By: #### A BG #### Point of Care testing , Monocytes/100 WBC (Bld) 7 % Normal 2-11 [facility] Comment on above: Performed By: #### A BG #### Point of Care testing , Nucleated RBC/100 WBC (Bld) [Ratio] 0.2 % Normal 0-0.5 [facility] Comment on above: Result Comment: PERF ORMED BY: [address] [place] [address] PATHOLOGIST [employer] SAL[employer] REPRESENTATIVE DANIELLE ANDERSON M.D. Performed By: #### A BG #### Point of Care testing , Platelet Estimate Normal Normal Normal [facility] Comment on above: Performed By: #### A BG #### Point of Care testing , Platelet mean volume (Bld) [Entitic vol] 8.0 fL Normal 6.3-10.7 [facility] Comment on above: Performed By: #### A BG #### Point of Care testing , Platelet Morphology Normal Normal Normal [facility] Comment on above: Result Comment: PERF ORMED BY: [facility] [address] [place] [address] PATHOLOGIST [employer] SALES REPRESENTATIVE DANIELLE ANDERSON M.D. Performed By: #### A BG #### Point of Care testing , Platelets (Bld) [#/Vol] 366 10*3/uL Normal 150-450 [facility] Comment on above: Performed By: #### A BG #### Point of Care testing , RBC (Bld) [#/Vol] 3.18 10*6/uL Low 3.60-5.00 [facility] Comment on above: Performed By: #### A BG #### Point of Care testing , RBC morphology finding Nom (Bld) Normal Normal [facility] Comment on above: Performed By: #### A BG #### Point of Care testing , Segmented neutrophils/100 WBC (Bld) 50 % Normal 50-70 [facility] Comment on above: Performed By: #### A BG #### Point of Care testing , WBC (Bld) [#/Vol] 5.0 10*3/uL Normal 4.5-11.0 [facility] Comment on above: Performed By: #### A BG #### Point of Care testing , Folateon 02-15-2021 Folate 6.3 ng/mL Normal >5.9 [facility] Comment on above: Result Comment: Lizeth te reference range: >5.9 ng/ml The WHO technical consultation on folate and vitamin b12 deficiencies has determined that folate concentrations less than 4 ng/ml are considered deficient. PERFORMED BY: [place] [address] PATHOLOGIST [employer] SALES REPRESENTATIVE DANIELLE ANDERSON M.D. Performed By: #### A BG #### Point of Care testing , Prealbuminon 02-15-2021 Prealbumin [Mass/Vol] 17.6 mg/dL Low 18.0-38.0 [facility] Comment on above: Performed By: #### H EPATIC, PHOS, MG, HS TROP, CBC, BMP #### [facility] [address] [place] [address] Vitamin B12on 02-15-2021 Cobalamin (Vitamin B12) [Mass/Vol] 348 pg/mL Normal 180-914 [facility] Comment on above: Performed By: #### H EPATIC, PHOS, MG, HS TROP, CBC, BMP #### [facility] [address] [place] [address] Comprehensive Metabolic Pane veronique 02-14-2021 Albumin [Mass/Vol] 2.3 g/dL Low 3.2-5.5 [facility] Comment on above: Performed By: #### H EPATIC, PHOS, MG, HS TROP, CBC, BMP #### [facility] [address] [place] [address] Albumin/Globulin [Mass ratio] 0.7 {ratio} Normal [facility] Comment on above: Performed By: #### H EPATIC, PHOS, MG, HS TROP, CBC, BMP #### [facility] [address] [place] [address] ALP [Catalytic activity/Vol] 65 U/L Normal 32-92 [facility] Comment on above: Performed By: #### H EPATIC, PHOS, MG, HS TROP, CBC, BMP #### [facility] [address] [place] [address] ALT [Catalytic activity/Vol] 58 U/L Normal 10-60 [facility] Comment on above: Performed By: #### H EPATIC, PHOS, MG, HS TROP, CBC, BMP #### [facility] [address] AST [Catalytic activity/Vol] 86 U/L High 10-42 [facility] Comment on above: Performed By: #### H EPATIC, PHOS, MG, HS TROP, CBC, BMP #### [facility] [address] Bilirubin [Mass/Vol] 0.4 mg/dL Normal 0.3-1.2 [facility] Comment on above: Performed By: #### H EPATIC, PHOS, MG, HS TROP, CBC, BMP #### [address] Calcium [Mass/Vol] 8.4 mg/dL Normal 8.2-10.2 [facility] Comment on above: Performed By: #### H EPATIC, PHOS, MG, HS TROP, CBC, BMP #### [address] Chloride [Moles/Vol] 104 mmol/L Normal 95-114 [facility] Comment on above: Performed By: #### H EPATIC, PHOS, MG, HS TROP, CBC, BMP #### [facility] [address] [place] [address] CO2 [Moles/Vol] 26.2 mmol/L Normal 22.0-30.0 [facility] Comment on above: Performed By: #### H EPATIC, PHOS, MG, HS TROP, CBC, BMP #### [facility] [address] Creatinine [Mass/Vol] 0.70 mg/dL Normal 0.44-1.03 [facility] Comment on above: Performed By: #### H EPATIC, PHOS, MG, HS TROP, CBC, BMP #### [facility] [address] [place] [address] [place] Creatinine Clr Calc Pharmacy 110.72 Normal [facility] Comment on above: Result Comment: PERF ORMED BY: [place] [address] PATHOLOGIST [employer] SAL[employer] REPRESENTATIVE DANIELLE ANDERSON M.D. Performed By: #### H EPATIC, PHOS, MG, HS TROP, CBC, BMP #### [address] Estimated GFR ( Prerna > 60 [facility] Comment on above: Result Comment: GFR estimated reference range: According to KDOQI guidelines, <60 ml/min/1.73m2 is sufficient to diagnose a patient with chronic kidney disease. Performed By: #### H EPATIC, PHOS, MG, HS TROP, CBC, BMP #### [address] Estimated GFR (Non- Am > 60 [facility] Comment on above: Performed By: #### H EPATIC, PHOS, MG, HS TROP, CBC, BMP #### [address] Globulin (S) [Mass/Vol] 3.1 g/dL Normal [facility] Comment on above: Performed By: #### H EPATIC, PHOS, MG, HS TROP, CBC, BMP #### [address] Glucose [Mass/Vol] 119 mg/dL High 70-100 [facility] Comment on above: Result Comment: [place] Glucose Reference Range is dependent on time and content of last meal. Glucose of more than 200 mg/dL in a nonstressed, ambulatory subject supports the diagnosis of Diabetes Mellitus. ADA recommended reference range Performed By: #### H EPATIC, PHOS, MG, HS TROP, CBC, BMP #### [address] Potassium [Moles/Vol] 4.0 mmol/L Normal 3.5-5.1 [facility] Comment on above: Performed By: #### H EPATIC, PHOS, MG, HS TROP, CBC, BMP #### [address] Protein [Mass/Vol] 5.4 g/dL Low 6.1-7.9 [facility] Comment on above: Performed By: #### H EPATIC, PHOS, MG, HS TROP, CBC, BMP #### [address] Sodium [Moles/Vol] 140 mmol/L Normal 136-146 [facility] Comment on above: Performed By: #### H EPATIC, PHOS, MG, HS TROP, CBC, BMP #### [address] Urea nitrogen [Mass/Vol] 9 mg/dL Normal 9-23 [facility] Comment on above: Performed By: #### H EPATIC, PHOS, MG, HS TROP, CBC, BMP #### [address] D-Dimer High Sensitivityon 1 04-16-2020 D-Dimer High Sensitivity 464 ng/mL High 0-243 [facility] Comment on above: Result Comment: The reference [...] patients due to co-morbid conditions. PERFORMED BY: [place] [address] PATHOLOGIST [employer] SAL[employer] REPRESENTATIVE DANIELLE ANDERSON M.D. Performed By: #### H EPATIC, PHOS, MG, HS TROP, CBC, BMP #### [address] Diff and CBCon 02-14-2021 Band form neutrophils/100 WBC (Bld) 1 % Normal 0-5 [facility] Comment on above: Performed By: #### H EPATIC, PHOS, MG, HS TROP, CBC, BMP #### [address] Erythrocyte distribution width (RBC) [Ratio] 13.3 % Normal 11.9-15.3 [facility] Comment on above: Performed By: #### H EPATIC, PHOS, MG, HS TROP, CBC, BMP #### [address] Hematocrit (Bld) [Volume fraction] 32.4 % Low 34.0-46.4 [facility] Comment on above: Performed By: #### H EPATIC, PHOS, MG, HS TROP, CBC, BMP #### [address] Hemoglobin (Bld) [Mass/Vol] 10.8 g/dL Low 11.8-15.4 [facility] Comment on above: Performed By: #### H EPATIC, PHOS, MG, HS TROP, CBC, BMP #### [address] Lymphocytes/100 WBC (Bld) 25 % Normal 18-42 [facility] Comment on above: Performed By: #### H EPATIC, PHOS, MG, HS TROP, CBC, BMP #### [address] MCH (RBC) [Entitic mass] 31.7 pg Normal 24.7-34.3 [facility] Comment on above: Performed By: #### H EPATIC, PHOS, MG, HS TROP, CBC, BMP #### [address] MCV (RBC) [Entitic vol] 95.2 fL Normal 80-100 [facility] Comment on above: Performed By: #### H EPATIC, PHOS, MG, HS TROP, CBC, BMP #### [address] Mean Corpuscular HGB Conc 33.3 g/dL Normal 32.0-35.0 [facility] Comment on above: Performed By: #### H EPATIC, PHOS, MG, HS TROP, CBC, BMP #### [facility] [address] [place] [address] [place] Metamyelocytes 1 % High 0-0 [facility] Comment on above: Performed By: #### H EPATIC, PHOS, MG, HS TROP, CBC, BMP #### [facility] [address] [place] [address] [place] Monocytes/100 WBC (Bld) 5 % Normal 2-11 [facility] Comment on above: Performed By: #### H EPATIC, PHOS, MG, HS TROP, CBC, BMP #### [facility] [address] Nucleated RBC/100 WBC (Bld) [Ratio] 0.1 % Normal 0-0.5 [facility] Comment on above: Result Comment: PERF ORMED BY: [place] [address] PATHOLOGIST [employer] SAL[employer] REPRESENTATIVE DANIELLE ANDERSON M.D. Performed By: #### H EPATIC, PHOS, MG, HS TROP, CBC, BMP #### [facility] [address] Platelet Estimate Normal Normal Normal [facility] Comment on above: Performed By: #### H EPATIC, PHOS, MG, HS TROP, CBC, BMP #### [facility] [address] Platelet mean volume (Bld) [Entitic vol] 8.1 fL Normal 6.3-10.7 [facility] Comment on above: Performed By: #### H EPATIC, PHOS, MG, HS TROP, CBC, BMP #### [facility] [address] Platelet Morphology Normal Normal Normal [facility] Comment on above: Result Comment: PERF ORMED BY: [place] [address] PATHOLOGIST [employer] REPRESENTATIVE DANIELLE ANDERSON M.D. Performed By: #### H EPATIC, PHOS, MG, HS TROP, CBC, BMP #### [facility] [address] [place] [address] Platelets (Bld) [#/Vol] 391 10*3/uL Normal 150-450 [facility] Comment on above: Performed By: #### H EPATIC, PHOS, MG, HS TROP, CBC, BMP #### [address] RBC (Bld) [#/Vol] 3.40 10*6/uL Low 3.60-5.00 [facility] Comment on above: Performed By: #### H EPATIC, PHOS, MG, HS TROP, CBC, BMP #### [address] RBC morphology finding Nom (Bld) Normal Normal [facility] Comment on above: Performed By: #### H EPATIC, PHOS, MG, HS TROP, CBC, BMP #### [address] Segmented neutrophils/100 WBC (Bld) 68 % Normal 50-70 [facility] Comment on above: Performed By: #### H EPATIC, PHOS, MG, HS TROP, CBC, BMP #### [address] WBC (Bld) [#/Vol] 5.8 10*3/uL Normal 4.5-11.0 [facility] Comment on above: Performed By: #### H EPATIC, PHOS, MG, HS TROP, CBC, BMP #### [address] Dipstick and Microscopicon 1 04-16-2020 Appearance (U) Cloudy Critically abnormal Clear [facility] Comment on above: Order Comment: Name Collection Type:: Voided Performed By: #### H EPATIC, PHOS, MG, HS TROP, CBC, BMP #### [address] Bacteria,Urine 1+ High None Seen [facility] Comment on above: Order Comment: Name Collection Type:: Voided Performed By: #### H EPATIC, PHOS, MG, HS TROP, CBC, BMP #### [address] Bilirubin,Urine Negative Normal Negative [facility] Comment on above: Order Comment: Name Collection Type:: Voided Performed By: #### H EPATIC, PHOS, MG, HS TROP, CBC, BMP #### [address] Color (U) Dark Yellow Critically abnormal Yellow [facility] Comment on above: Order Comment: Name Collection Type:: Voided Performed By: #### H EPATIC, PHOS, MG, HS TROP, CBC, BMP #### [address] Glucose Ql (U) Normal Normal Normal [facility] Comment on above: Order Comment: Name Collection Type:: Voided Performed By: #### H EPATIC, PHOS, MG, HS TROP, CBC, BMP #### [address] Hyaline Casts,Urine 9-19 High 0-8 [facility] Comment on above: Order Comment: Name Collection Type:: Voided Result Comment: PERF ORMED BY: [place] [address] PATHOLOGIST [employer] REPRESENTATIVE DANIELLE ANDERSON M.D. Performed By: #### H EPATIC, PHOS, MG, HS TROP, CBC, BMP #### [address] Ketones Ql (U) 1+ High Negative [facility] Comment on above: Order Comment: Name Collection Type:: Voided Performed By: #### H EPATIC, PHOS, MG, HS TROP, CBC, BMP #### [address] Leukocyte esterase Test strip Ql (U) 1+ High Negative [facility] Comment on above: Order Comment: Name Collection Type:: Voided Performed By: #### H EPATIC, PHOS, MG, HS TROP, CBC, BMP #### [address] Nitrite,Urine Negative Normal Negative [facility] Comment on above: Order Comment: Name Collection Type:: Voided Performed By: #### H EPATIC, PHOS, MG, HS TROP, CBC, BMP #### [address] Occult Blood,Urine Negative Normal Negative [facility] Comment on above: Order Comment: Name Collection Type:: Voided Result Comment: PERF ORMED BY: [place] [address] PATHOLOGIST [employer] REPRESENTATIVE DANIELLE ANDERSON M.D. Performed By: #### H EPATIC, PHOS, MG, HS TROP, CBC, BMP #### [address] pH (U) 5.5 [pH] Normal 5.0-9.0 [facility] Comment on above: Order Comment: Name Collection Type:: Voided Performed By: #### H EPATIC, PHOS, MG, HS TROP, CBC, BMP #### [address] Protein (U) [Mass/Vol] 30 mg/dL High Negative [facility] Comment on above: Order Comment: Name Collection Type:: Voided Performed By: #### H EPATIC, PHOS, MG, HS TROP, CBC, BMP #### [address] RBC,Urine None Seen Normal 0-4 [facility] Comment on above: Order Comment: Name Collection Type:: Voided Performed By: #### H EPATIC, PHOS, MG, HS TROP, CBC, BMP #### [address] Specificy [place],Urine 1.034 High 1.001-1.030 [facility] Comment on above: Order Comment: Name Collection Type:: Voided Performed By: #### H EPATIC, PHOS, MG, HS TROP, CBC, BMP #### [address] [address] [place] Squamous Epithelial Cell,Urine 10-19 High 0-2 [facility] Comment on above: Order Comment: Name Collection Type:: Voided Performed By: #### H EPATIC, PHOS, MG, HS TROP, CBC, BMP #### [facility] [address] Urobilinogen,Urine Normal Normal Normal [facility] Comment on above: Order Comment: Name Collection Type:: Voided Performed By: #### H EPATIC, PHOS, MG, HS TROP, CBC, BMP #### [facility] [address] [place] [id number] [facility] WBC,Urine 10-19 High 0-4 [facility] Comment on above: Order Comment: Name Collection Type:: Voided Performed By: #### H EPATIC, PHOS, MG, HS TROP, CBC, BMP #### [facility] [address] [place] [address] Urine Cultureon 02-14-2021 Bacteria identified Cx Nom (U) ORGANISM: Enterococcus faecalis (O:ENTFAC) [employer] Count >100,000 Aerobic YUN Charge (PC45) -- [...] RESISTANT TO ALL B-LACTAM DRUGS. PERFORMED BY: [place] [address] PATHOLOGIST [employer] SAL[employer] REPRESENTATIVE DANIELLE ANDERSON M.D. [facility] Comment on above: Performed By: #### H EPATIC, PHOS, MG, HS TROP, CBC, BMP #### [facility] [address] [place] [address] Comprehensive Metabolic Pane veronique 02-13-2021 Albumin [Mass/Vol] 2.2 g/dL Low 3.2-5.5 [facility] Comment on above: Performed By: #### H EPATIC, PHOS, MG, HS TROP, CBC, BMP #### [address] Albumin/Globulin [Mass ratio] 0.7 {ratio} [facility] Comment on above: Performed By: #### H EPATIC, PHOS, MG, HS TROP, CBC, BMP #### [facility] [address] [place] [address] ALP [Catalytic activity/Vol] 62 U/L Normal 32-92 [facility] Comment on above: Performed By: #### H EPATIC, PHOS, MG, HS TROP, CBC, BMP #### [facility] [address] [place] [address] ALT [Catalytic activity/Vol] 57 U/L Normal 10-60 [facility] Comment on above: Performed By: #### H EPATIC, PHOS, MG, HS TROP, CBC, BMP #### [facility] [address] [place] [address] AST [Catalytic activity/Vol] 119 U/L High 10-42 [facility] Comment on above: Performed By: #### H EPATIC, PHOS, MG, HS TROP, CBC, BMP #### [facility] [address] [place] [address] Bilirubin [Mass/Vol] 0.2 mg/dL Low 0.3-1.2 [facility] Comment on above: Performed By: #### H EPATIC, PHOS, MG, HS TROP, CBC, BMP #### [facility] [address] [place] [address] Calcium [Mass/Vol] 8.4 mg/dL Normal 8.2-10.2 [facility] Comment on above: Performed By: #### H EPATIC, PHOS, MG, HS TROP, CBC, BMP #### [facility] [address] [place] [address] Chloride [Moles/Vol] 104 mmol/L Normal 95-114 [facility] Comment on above: Performed By: #### H EPATIC, PHOS, MG, HS TROP, CBC, BMP #### [address] CO2 [Moles/Vol] 25.6 mmol/L Normal 22.0-30.0 [facility] Comment on above: Performed By: #### H EPATIC, PHOS, MG, HS TROP, CBC, BMP #### [address] Creatinine [Mass/Vol] 0.67 mg/dL Normal 0.44-1.03 [facility] Comment on above: Performed By: #### H EPATIC, PHOS, MG, HS TROP, CBC, BMP #### [address] Creatinine Clr Calc Pharmacy 115.74 [facility] Comment on above: Result Comment: PERF ORMED BY: [place] [address] PATHOLOGIST [employer] REPRESENTATIVE DANIELLE ANDERSON M.D. Performed By: #### H EPATIC, PHOS, MG, HS TROP, CBC, BMP #### [address] Estimated GFR ( Prerna > 60 [facility] Comment on above: Result Comment: GFR estimated reference range: According to KDOQI guidelines, <60 ml/min/1.73m2 is sufficient to diagnose a patient with chronic kidney disease. Performed By: #### H EPATIC, PHOS, MG, HS TROP, CBC, BMP #### [address] Estimated GFR (Non- Am > 60 [facility] Comment on above: Performed By: #### H EPATIC, PHOS, MG, HS TROP, CBC, BMP #### [facility] [address] Globulin (S) [Mass/Vol] 3.1 g/dL Normal [facility] Comment on above: Performed By: #### H EPATIC, PHOS, MG, HS TROP, CBC, BMP #### [address] Glucose [Mass/Vol] 121 mg/dL High 70-100 [facility] Comment on above: Result Comment: [facility] Glucose Reference Range is dependent on time and content of last meal. Glucose of more than 200 mg/dL in a nonstressed, ambulatory subject supports the diagnosis of Diabetes Mellitus. ADA recommended reference range Performed By: #### H EPATIC, PHOS, MG, HS TROP, CBC, BMP #### [address] Potassium [Moles/Vol] 3.6 mmol/L Normal 3.5-5.1 [facility] Comment on above: Performed By: #### H EPATIC, PHOS, MG, HS TROP, CBC, BMP #### [address] Protein [Mass/Vol] 5.3 g/dL Low 6.1-7.9 [facility] Comment on above: Performed By: #### H EPATIC, PHOS, MG, HS TROP, CBC, BMP #### [address] Sodium [Moles/Vol] 139 mmol/L Normal 136-146 [facility] Comment on above: Performed By: #### H EPATIC, PHOS, MG, HS TROP, CBC, BMP #### [place] [address] [place] Urea nitrogen [Mass/Vol] 7 mg/dL Low 9-23 [facility] Comment on above: Performed By: #### H EPATIC, PHOS, MG, HS TROP, CBC, BMP #### [address] D-Dimer High Sensitivityon 1 1-25-2021 D-Dimer High Sensitivity 404 ng/mL High 0-243 [facility] Comment on above: Result Comment: The reference [...] patients due to co-morbid conditions. PERFORMED BY: [place] [address] PATHOLOGIST [employer] REPRESENTATIVE DANIELLE ANDERSON M.D. Performed By: #### H EPATIC, PHOS, MG, HS TROP, CBC, BMP #### [address] Diff and CBCon 02-13-2021 Erythrocyte distribution width (RBC) [Ratio] 13.4 % Normal 11.9-15.3 [facility] Comment on above: Performed By: #### H EPATIC, PHOS, MG, HS TROP, CBC, BMP #### [address] Hematocrit (Bld) [Volume fraction] 33.2 % Low 34.0-46.4 [facility] Comment on above: Performed By: #### H EPATIC, PHOS, MG, HS TROP, CBC, BMP #### [address] Hemoglobin (Bld) [Mass/Vol] 11.0 g/dL Low 11.8-15.4 [facility] Comment on above: Performed By: #### H EPATIC, PHOS, MG, HS TROP, CBC, BMP #### [address] Lymphocytes/100 WBC (Bld) 15 % Low 18-42 [facility] Comment on above: Performed By: #### H EPATIC, PHOS, MG, HS TROP, CBC, BMP #### [address] MCH (RBC) [Entitic mass] 31.4 pg Normal 24.7-34.3 [facility] Comment on above: Performed By: #### H EPATIC, PHOS, MG, HS TROP, CBC, BMP #### [address] MCV (RBC) [Entitic vol] 94.6 fL Normal 80-100 [facility] Comment on above: Performed By: #### H EPATIC, PHOS, MG, HS TROP, CBC, BMP #### [address] Mean Corpuscular HGB Conc 33.2 g/dL Normal 32.0-35.0 [facility] Comment on above: Performed By: #### H EPATIC, PHOS, MG, HS TROP, CBC, BMP #### [address] Metamyelocytes 2 % High 0-0 [facility] Comment on above: Performed By: #### H EPATIC, PHOS, MG, HS TROP, CBC, BMP #### [address] Monocytes/100 WBC (Bld) 11 % Normal 2-11 [facility] Comment on above: Performed By: #### H EPATIC, PHOS, MG, HS TROP, CBC, BMP #### [address] Nucleated RBC/100 WBC (Bld) [Ratio] 0.1 % Normal 0-0.5 [facility] Comment on above: Performed By: #### H EPATIC, PHOS, MG, HS TROP, CBC, BMP #### [address] Platelet Estimate Normal Normal Normal [facility] Comment on above: Performed By: #### H EPATIC, PHOS, MG, HS TROP, CBC, BMP #### [address] Platelet mean volume (Bld) [Entitic vol] 7.8 fL Normal 6.3-10.7 [facility] Comment on above: Performed By: #### H EPATIC, PHOS, MG, HS TROP, CBC, BMP #### [address] Platelet Morphology Normal Normal Normal [facility] Comment on above: Result Comment: PERF ORMED BY: [place] [address] PATHOLOGIST [employer] REPRESENTATIVE DANIELLE ANDERSON M.D. Performed By: #### H EPATIC, PHOS, MG, HS TROP, CBC, BMP #### [address] Platelets (Bld) [#/Vol] 387 10*3/uL Normal 150-450 [facility] Comment on above: Performed By: #### H EPATIC, PHOS, MG, HS TROP, CBC, BMP #### [address] RBC (Bld) [#/Vol] 3.51 10*6/uL Low 3.60-5.00 [facility] Comment on above: Performed By: #### H EPATIC, PHOS, MG, HS TROP, CBC, BMP #### [address] RBC morphology finding Nom (Bld) Normal Normal [facility] Comment on above: Performed By: #### H EPATIC, PHOS, MG, HS TROP, CBC, BMP #### [address] Segmented neutrophils/100 WBC (Bld) 72 % High 50-70 [facility] Comment on above: Performed By: #### H EPATIC, PHOS, MG, HS TROP, CBC, BMP #### [address] WBC (Bld) [#/Vol] 6.1 10*3/uL Normal 4.5-11.0 [facility] Comment on above: Performed By: #### H EPATIC, PHOS, MG, HS TROP, CBC, BMP #### [facility] [address] [place] [address] Complete Blood Count Auto Di ffon 02-12-2021 Basophils (Bld) [#/Vol] 0.0 10*3/uL Normal 0.0-0.2 [facility] Comment on above: Result Comment: PERF ORMED BY: [place] [address] PATHOLOGIST [employer] REPRESENTATIVE DANIELLE ANDERSON M.D. Performed By: #### H EPATIC, PHOS, MG, HS TROP, CBC, BMP #### [address] Basophils/100 WBC (Bld) 0.4 % Normal . [facility] Comment on above: Performed By: #### H EPATIC, PHOS, MG, HS TROP, CBC, BMP #### [address] Eosinophils (Bld) [#/Vol] 0.0 10*3/uL Normal 0.0-0.45 [facility] Comment on above: Performed By: #### H EPATIC, PHOS, MG, HS TROP, CBC, BMP #### [address] Eosinophils/100 WBC (Bld) 0.0 % Normal . [facility] Comment on above: Performed By: #### H EPATIC, PHOS, MG, HS TROP, CBC, BMP #### [address] Erythrocyte distribution width (RBC) [Ratio] 13.4 % Normal 11.9-15.3 [facility] Comment on above: Performed By: #### H EPATIC, PHOS, MG, HS TROP, CBC, BMP #### [address] Hematocrit (Bld) [Volume fraction] 34.1 % Normal 34.0-46.4 [facility] Comment on above: Performed By: #### H EPATIC, PHOS, MG, HS TROP, CBC, BMP #### [address] Hemoglobin (Bld) [Mass/Vol] 11.3 g/dL Low 11.8-15.4 [facility] Comment on above: Performed By: #### H EPATIC, PHOS, MG, HS TROP, CBC, BMP #### [address] Lymphocytes (Bld) [#/Vol] 1.1 10*3/uL Normal 1.00-4.8 [facility] Comment on above: Performed By: #### H EPATIC, PHOS, MG, HS TROP, CBC, BMP #### [address] Lymphocytes/100 WBC (Bld) 24.7 % Normal . [facility] Comment on above: Performed By: #### H EPATIC, PHOS, MG, HS TROP, CBC, BMP #### [address] MCH (RBC) [Entitic mass] 31.6 pg Normal 24.7-34.3 [facility] Comment on above: Performed By: #### H EPATIC, PHOS, MG, HS TROP, CBC, BMP #### [address] MCV (RBC) [Entitic vol] 95.8 fL Normal 80-100 [facility] Comment on above: Performed By: #### H EPATIC, PHOS, MG, HS TROP, CBC, BMP #### [address] Mean Corpuscular HGB Conc 33.0 g/dL Normal 32.0-35.0 [facility] Comment on above: Performed By: #### H EPATIC, PHOS, MG, HS TROP, CBC, BMP #### [address] Monocytes (Bld) [#/Vol] 0.6 10*3/uL Normal 0.0-0.8 [facility] Comment on above: Performed By: #### H EPATIC, PHOS, MG, HS TROP, CBC, BMP #### [facility] [address] [place] [address] [place] Monocytes/100 WBC (Bld) 13.1 % Normal . [facility] Comment on above: Performed By: #### H EPATIC, PHOS, MG, HS TROP, CBC, BMP #### [facility] [address] [place] [address] [place] Neutrophils (Bld) [#/Vol] 2.8 10*3/uL Normal 1.8-7.7 [facility] Comment on above: Performed By: #### H EPATIC, PHOS, MG, HS TROP, CBC, BMP #### [address] Neutrophils/100 WBC (Bld) 61.8 % Normal . [facility] Comment on above: Performed By: #### H EPATIC, PHOS, MG, HS TROP, CBC, BMP #### [place] [address] [place] Nucleated RBC/100 WBC (Bld) [Ratio] 0.1 % Normal 0-0.5 [facility] Comment on above: Performed By: #### H EPATIC, PHOS, MG, HS TROP, CBC, BMP #### [address] Platelet mean volume (Bld) [Entitic vol] 8.3 fL Normal 6.3-10.7 [facility] Comment on above: Performed By: #### H EPATIC, PHOS, MG, HS TROP, CBC, BMP #### [facility] [address] [place] [address] [place] Platelets (Bld) [#/Vol] 304 10*3/uL Normal 150-450 [facility] Comment on above: Performed By: #### H EPATIC, PHOS, MG, HS TROP, CBC, BMP #### [facility] [address] [place] [address] [place] RBC (Bld) [#/Vol] 3.56 10*6/uL Low 3.60-5.00 [facility] Comment on above: Performed By: #### H EPATIC, PHOS, MG, HS TROP, CBC, BMP #### [address] WBC (Bld) [#/Vol] 4.6 10*3/uL Normal 4.5-11.0 [facility] Comment on above: Performed By: #### H EPATIC, PHOS, MG, HS TROP, CBC, BMP #### [address] Comprehensive Metabolic Pane veronique 02-12-2021 Albumin [Mass/Vol] 2.2 g/dL Low 3.2-5.5 [facility] Comment on above: Performed By: #### H EPATIC, PHOS, MG, HS TROP, CBC, BMP #### [address] Albumin/Globulin [Mass ratio] 0.7 {ratio} Normal [facility] Comment on above: Performed By: #### H EPATIC, PHOS, MG, HS TROP, CBC, BMP #### [address] ALP [Catalytic activity/Vol] 55 U/L Normal 32-92 [facility] Comment on above: Performed By: #### H EPATIC, PHOS, MG, HS TROP, CBC, BMP #### [facility] [address] [place] [address] ALT [Catalytic activity/Vol] 35 U/L Normal 10-60 [facility] Comment on above: Performed By: #### H EPATIC, PHOS, MG, HS TROP, CBC, BMP #### [facility] [address] [place] [address] AST [Catalytic activity/Vol] 60 U/L High 10-42 [facility] Comment on above: Performed By: #### H EPATIC, PHOS, MG, HS TROP, CBC, BMP #### [address] Bilirubin [Mass/Vol] 0.4 mg/dL Normal 0.3-1.2 [facility] Comment on above: Performed By: #### H EPATIC, PHOS, MG, HS TROP, CBC, BMP #### [facility] [address] Calcium [Mass/Vol] 8.3 mg/dL Normal 8.2-10.2 [facility] Comment on above: Performed By: #### H EPATIC, PHOS, MG, HS TROP, CBC, BMP #### [facility] [address] Chloride [Moles/Vol] 104 mmol/L Normal 95-114 [facility] Comment on above: Performed By: #### H EPATIC, PHOS, MG, HS TROP, CBC, BMP #### [address] CO2 [Moles/Vol] 23.6 mmol/L Normal 22.0-30.0 [facility] Comment on above: Performed By: #### H EPATIC, PHOS, MG, HS TROP, CBC, BMP #### [facility] [address] [place] [address] Creatinine [Mass/Vol] 0.69 mg/dL Normal 0.44-1.03 [facility] Comment on above: Performed By: #### H EPATIC, PHOS, MG, HS TROP, CBC, BMP #### [facility] [address] [place] [address] [place] Creatinine Clr Calc Pharmacy 112.39 [facility] Comment on above: Result Comment: PERF ORMED BY: [place] [address] PATHOLOGIST [employer] REPRESENTATIVE DANIELLE ANDERSON M.D. Performed By: #### H EPATIC, PHOS, MG, HS TROP, CBC, BMP #### [facility] [address] [place] [address] Estimated GFR ( Prerna > 60 Normal [facility] Comment on above: Result Comment: GFR estimated reference range: According to KDOQI guidelines, <60 ml/min/1.73m2 is sufficient to diagnose a patient with chronic kidney disease. Performed By: #### H EPATIC, PHOS, MG, HS TROP, CBC, BMP #### [address] Estimated GFR (Non- Am > 60 Normal [facility] Comment on above: Performed By: #### H EPATIC, PHOS, MG, HS TROP, CBC, BMP #### [address] Globulin (S) [Mass/Vol] 3.2 g/dL Normal [facility] Comment on above: Performed By: #### H EPATIC, PHOS, MG, HS TROP, CBC, BMP #### [address] Glucose [Mass/Vol] 113 mg/dL High 70-100 [facility] Comment on above: Result Comment: [facility] Glucose Reference Range is dependent on time and content of last meal. Glucose of more than 200 mg/dL in a nonstressed, ambulatory subject supports the diagnosis of Diabetes Mellitus. ADA recommended reference range Performed By: #### H EPATIC, PHOS, MG, HS TROP, CBC, BMP #### [address] Potassium [Moles/Vol] 3.6 mmol/L Normal 3.5-5.1 [facility] Comment on above: Performed By: #### H EPATIC, PHOS, MG, HS TROP, CBC, BMP #### [address] Protein [Mass/Vol] 5.4 g/dL Low 6.1-7.9 [facility] Comment on above: Performed By: #### H EPATIC, PHOS, MG, HS TROP, CBC, BMP #### [address] Sodium [Moles/Vol] 138 mmol/L Normal 136-146 [facility] Comment on above: Performed By: #### H EPATIC, PHOS, MG, HS TROP, CBC, BMP #### [facility] [address] Urea nitrogen [Mass/Vol] 11 mg/dL Normal 12-12 [facility] Comment on above: Performed By: #### H EPATIC, PHOS, MG, HS TROP, CBC, BMP #### [facility] [address] [place] [address] D-Dimer High Sensitivityon 1 04-14-2020 D-Dimer High Sensitivity 706 ng/mL High 0-243 [facility] Comment on above: Result Comment: The reference [...] patients due to co-morbid conditions. PERFORMED BY: [place] [address] PATHOLOGIST [employer] SAL[employer] REPRESENTATIVE DANIELLE ANDERSON M.D. Performed By: #### H EPATIC, PHOS, MG, HS TROP, CBC, BMP #### [address] Complete Blood Count Auto Di ffon 02-11-2021 Basophils (Bld) [#/Vol] 0.0 10*3/uL Normal 0.0-0.2 [facility] Comment on above: Result Comment: PERF ORMED BY: [place] [address] PATHOLOGIST [employer] REPRESENTATIVE DANIELLE ANDERSON M.D. Performed By: #### H EPATIC, PHOS, MG, HS TROP, CBC, BMP #### [address] Basophils/100 WBC (Bld) 0.1 % Normal . [facility] Comment on above: Performed By: #### H EPATIC, PHOS, MG, HS TROP, CBC, BMP #### [address] Eosinophils (Bld) [#/Vol] 0.0 10*3/uL Normal 0.0-0.45 [facility] Comment on above: Performed By: #### H EPATIC, PHOS, MG, HS TROP, CBC, BMP #### [address] Eosinophils/100 WBC (Bld) 0.0 % Normal . [facility] Comment on above: Performed By: #### H EPATIC, PHOS, MG, HS TROP, CBC, BMP #### [address] Erythrocyte distribution width (RBC) [Ratio] 13.2 % Normal 11.9-15.3 [facility] Comment on above: Performed By: #### H EPATIC, PHOS, MG, HS TROP, CBC, BMP #### [address] Hematocrit (Bld) [Volume fraction] 31.9 % Low 34.0-46.4 [facility] Comment on above: Performed By: #### H EPATIC, PHOS, MG, HS TROP, CBC, BMP #### [address] Hemoglobin (Bld) [Mass/Vol] 10.8 g/dL Low 11.8-15.4 [facility] Comment on above: Performed By: #### H EPATIC, PHOS, MG, HS TROP, CBC, BMP #### [address] Lymphocytes (Bld) [#/Vol] 0.7 10*3/uL Low 1.00-4.8 [facility] Comment on above: Performed By: #### H EPATIC, PHOS, MG, HS TROP, CBC, BMP #### [address] Lymphocytes/100 WBC (Bld) 17.2 % Normal . [facility] Comment on above: Performed By: #### H EPATIC, PHOS, MG, HS TROP, CBC, BMP #### [address] MCH (RBC) [Entitic mass] 32.1 pg Normal 24.7-34.3 [facility] Comment on above: Performed By: #### H EPATIC, PHOS, MG, HS TROP, CBC, BMP #### [address] MCV (RBC) [Entitic vol] 94.4 fL Normal 80-100 [facility] Comment on above: Performed By: #### H EPATIC, PHOS, MG, HS TROP, CBC, BMP #### [address] Mean Corpuscular HGB Conc 34.0 g/dL Normal 32.0-35.0 [facility] Comment on above: Performed By: #### H EPATIC, PHOS, MG, HS TROP, CBC, BMP #### [address] Monocytes (Bld) [#/Vol] 0.5 10*3/uL Normal 0.0-0.8 [facility] Comment on above: Performed By: #### H EPATIC, PHOS, MG, HS TROP, CBC, BMP #### [address] Monocytes/100 WBC (Bld) 11.8 % Normal . [facility] Comment on above: Performed By: #### H EPATIC, PHOS, MG, HS TROP, CBC, BMP #### [address] Neutrophils (Bld) [#/Vol] 2.9 10*3/uL Normal 1.8-7.7 [facility] Comment on above: Performed By: #### H EPATIC, PHOS, MG, HS TROP, CBC, BMP #### [address] Neutrophils/100 WBC (Bld) 70.9 % Normal . [facility] Comment on above: Performed By: #### H EPATIC, PHOS, MG, HS TROP, CBC, BMP #### [address] Nucleated RBC/100 WBC (Bld) [Ratio] 0.0 % Normal 0-0.5 [facility] Comment on above: Performed By: #### H EPATIC, PHOS, MG, HS TROP, CBC, BMP #### [address] Platelet mean volume (Bld) [Entitic vol] 7.9 fL Normal 6.3-10.7 [facility] Comment on above: Performed By: #### H EPATIC, PHOS, MG, HS TROP, CBC, BMP #### [address] Platelets (Bld) [#/Vol] 256 10*3/uL Normal 150-450 [facility] Comment on above: Performed By: #### H EPATIC, PHOS, MG, HS TROP, CBC, BMP #### [address] RBC (Bld) [#/Vol] 3.38 10*6/uL Low 3.60-5.00 [facility] Comment on above: Performed By: #### H EPATIC, PHOS, MG, HS TROP, CBC, BMP #### [address] WBC (Bld) [#/Vol] 4.1 10*3/uL Low 4.5-11.0 [facility] Comment on above: Performed By: #### H EPATIC, PHOS, MG, HS TROP, CBC, BMP #### [address] Comprehensive Metabolic Pane veronique 02-11-2021 Albumin [Mass/Vol] 2.1 g/dL Low 3.2-5.5 [facility] Comment on above: Performed By: #### H EPATIC, PHOS, MG, HS TROP, CBC, BMP #### [address] [place] [address] [place] Albumin/Globulin [Mass ratio] 0.6 {ratio} Normal [facility] Comment on above: Performed By: #### H EPATIC, PHOS, MG, HS TROP, CBC, BMP #### [facility] [address] ALP [Catalytic activity/Vol] 57 U/L Normal 32-92 [facility] Comment on above: Performed By: #### H EPATIC, PHOS, MG, HS TROP, CBC, BMP #### [address] ALT [Catalytic activity/Vol] 30 U/L Normal 10-60 [facility] Comment on above: Performed By: #### H EPATIC, PHOS, MG, HS TROP, CBC, BMP #### [address] AST [Catalytic activity/Vol] 38 U/L Normal 10-42 [facility] Comment on above: Performed By: #### H EPATIC, PHOS, MG, HS TROP, CBC, BMP #### [facility] [address] [place] [address] Bilirubin [Mass/Vol] 0.2 mg/dL Low 0.3-1.2 [facility] Comment on above: Performed By: #### H EPATIC, PHOS, MG, HS TROP, CBC, BMP #### [facility] [address] [place] [address] Calcium [Mass/Vol] 8.3 mg/dL Normal 8.2-10.2 [facility] Comment on above: Performed By: #### H EPATIC, PHOS, MG, HS TROP, CBC, BMP #### [facility] [address] [place] [address] [place] Chloride [Moles/Vol] 103 mmol/L Normal 95-114 [facility] Comment on above: Performed By: #### H EPATIC, PHOS, MG, HS TROP, CBC, BMP #### [facility] [address] [place] [address] [place] CO2 [Moles/Vol] 24.1 mmol/L Normal 22.0-30.0 [facility] Comment on above: Performed By: #### H EPATIC, PHOS, MG, HS TROP, CBC, BMP #### [address] Creatinine [Mass/Vol] 0.71 mg/dL Normal 0.44-1.03 [facility] Comment on above: Performed By: #### H EPATIC, PHOS, MG, HS TROP, CBC, BMP #### [address] Creatinine Clr Calc Pharmacy 110.27 [facility] Comment on above: Result Comment: PERF ORMED BY: [place] [address] PATHOLOGIST [employer] REPRESENTATIVE DANIELLE ANDERSON M.D. Performed By: #### H EPATIC, PHOS, MG, HS TROP, CBC, BMP #### [address] Estimated GFR ( Prerna > 60 [facility] Comment on above: Result Comment: GFR estimated reference range: According to KDOQI guidelines, <60 ml/min/1.73m2 is sufficient to diagnose a patient with chronic kidney disease. Performed By: #### H EPATIC, PHOS, MG, HS TROP, CBC, BMP #### [address] Estimated GFR (Non- Am > 60 [facility] Comment on above: Performed By: #### H EPATIC, PHOS, MG, HS TROP, CBC, BMP #### [address] Globulin (S) [Mass/Vol] 3.4 g/dL [facility] Comment on above: Performed By: #### H EPATIC, PHOS, MG, HS TROP, CBC, BMP #### [address] Glucose [Mass/Vol] 106 mg/dL High 70-100 [facility] Comment on above: Result Comment: [place] Glucose Reference Range is dependent on time and content of last meal. Glucose of more than 200 mg/dL in a nonstressed, ambulatory subject supports the diagnosis of Diabetes Mellitus. ADA recommended reference range Performed By: #### H EPATIC, PHOS, MG, HS TROP, CBC, BMP #### [facility] [address] Potassium [Moles/Vol] 3.6 mmol/L Normal 3.5-5.1 [facility] Comment on above: Performed By: #### H EPATIC, PHOS, MG, HS TROP, CBC, BMP #### [facility] [address] Protein [Mass/Vol] 5.5 g/dL Low 6.1-7.9 [facility] Comment on above: Performed By: #### H EPATIC, PHOS, MG, HS TROP, CBC, BMP #### [address] Sodium [Moles/Vol] 138 mmol/L Normal 136-146 [facility] Comment on above: Performed By: #### H EPATIC, PHOS, MG, HS TROP, CBC, BMP #### [address] Urea nitrogen [Mass/Vol] 8 mg/dL Low 9-23 [facility] Comment on above: Performed By: #### H EPATIC, PHOS, MG, HS TROP, CBC, BMP #### [address] D-Dimer High Sensitivityon 1 04-13-2020 D-Dimer High Sensitivity 486 ng/mL High 0-243 [facility] Comment on above: Result Comment: The reference [...] patients due to co-morbid conditions. PERFORMED BY: [place] [address] PATHOLOGIST [employer] SAL[employer] REPRESENTATIVE DANIELLE ANDERSON M.D. Performed By: #### H EPATIC, PHOS, MG, HS TROP, CBC, BMP #### [address] Complete Blood Count Auto Di ffon 02-10-2021 Basophils (Bld) [#/Vol] 0.0 10*3/uL Normal 0.0-0.2 [facility] Comment on above: Result Comment: PERF ORMED BY: [place] [address] PATHOLOGIST [employer] REPRESENTATIVE DANIELLE ANDERSON M.D. Performed By: #### H EPATIC, PHOS, MG, HS TROP, CBC, BMP #### [address] Basophils/100 WBC (Bld) 0.1 % Normal . [facility] Comment on above: Performed By: #### H EPATIC, PHOS, MG, HS TROP, CBC, BMP #### [address] Eosinophils (Bld) [#/Vol] 0.0 10*3/uL Normal 0.0-0.45 [facility] Comment on above: Performed By: #### H EPATIC, PHOS, MG, HS TROP, CBC, BMP #### [address] Eosinophils/100 WBC (Bld) 0.0 % Normal . [facility] Comment on above: Performed By: #### H EPATIC, PHOS, MG, HS TROP, CBC, BMP #### [address] Erythrocyte distribution width (RBC) [Ratio] 13.3 % Normal 11.9-15.3 [facility] Comment on above: Performed By: #### H EPATIC, PHOS, MG, HS TROP, CBC, BMP #### [address] Hematocrit (Bld) [Volume fraction] 31.7 % Low 34.0-46.4 [facility] Comment on above: Performed By: #### H EPATIC, PHOS, MG, HS TROP, CBC, BMP #### [address] Hemoglobin (Bld) [Mass/Vol] 10.7 g/dL Low 11.8-15.4 [facility] Comment on above: Performed By: #### H EPATIC, PHOS, MG, HS TROP, CBC, BMP #### [address] Lymphocytes (Bld) [#/Vol] 0.5 10*3/uL Low 1.00-4.8 [facility] Comment on above: Performed By: #### H EPATIC, PHOS, MG, HS TROP, CBC, BMP #### [address] Lymphocytes/100 WBC (Bld) 10.0 % Normal . [facility] Comment on above: Performed By: #### H EPATIC, PHOS, MG, HS TROP, CBC, BMP #### [address] MCH (RBC) [Entitic mass] 32.1 pg Normal 24.7-34.3 [facility] Comment on above: Performed By: #### H EPATIC, PHOS, MG, HS TROP, CBC, BMP #### [address] MCV (RBC) [Entitic vol] 95.0 fL Normal 80-100 [facility] Comment on above: Performed By: #### H EPATIC, PHOS, MG, HS TROP, CBC, BMP #### [address] Mean Corpuscular HGB Conc 33.8 g/dL Normal 32.0-35.0 [facility] Comment on above: Performed By: #### H EPATIC, PHOS, MG, HS TROP, CBC, BMP #### [facility] [address] [place] [address] [place] Monocytes (Bld) [#/Vol] 0.6 10*3/uL Normal 0.0-0.8 [facility] Comment on above: Performed By: #### H EPATIC, PHOS, MG, HS TROP, CBC, BMP #### [facility] [address] [place] [address] [place] Monocytes/100 WBC (Bld) 11.2 % Normal . [facility] Comment on above: Performed By: #### H EPATIC, PHOS, MG, HS TROP, CBC, BMP #### [address] Neutrophils (Bld) [#/Vol] 4.3 10*3/uL Normal 1.8-7.7 [facility] Comment on above: Performed By: #### H EPATIC, PHOS, MG, HS TROP, CBC, BMP #### [address] Neutrophils/100 WBC (Bld) 78.7 % Normal . [facility] Comment on above: Performed By: #### H EPATIC, PHOS, MG, HS TROP, CBC, BMP #### [place] [address] [place] Nucleated RBC/100 WBC (Bld) [Ratio] 0.1 % Normal 0-0.5 [facility] Comment on above: Performed By: #### H EPATIC, PHOS, MG, HS TROP, CBC, BMP #### [place] [address] [place] Platelet mean volume (Bld) [Entitic vol] 8.7 fL Normal 6.3-10.7 [facility] Comment on above: Performed By: #### H EPATIC, PHOS, MG, HS TROP, CBC, BMP #### [place] [address] [place] Platelets (Bld) [#/Vol] 220 10*3/uL Normal 150-450 [facility] Comment on above: Performed By: #### H EPATIC, PHOS, MG, HS TROP, CBC, BMP #### [facility] [address] RBC (Bld) [#/Vol] 3.34 10*6/uL Low 3.60-5.00 [facility] Comment on above: Performed By: #### H EPATIC, PHOS, MG, HS TROP, CBC, BMP #### [facility] [address] WBC (Bld) [#/Vol] 5.4 10*3/uL Normal 4.5-11.0 [facility] Comment on above: Performed By: #### H EPATIC, PHOS, MG, HS TROP, CBC, BMP #### [address] Comprehensive Metabolic Pane veronique 02-10-2021 Albumin [Mass/Vol] 2.1 g/dL Low 3.2-5.5 [facility] Comment on above: Performed By: #### H EPATIC, PHOS, MG, HS TROP, CBC, BMP #### [facility] [address] [place] [address] Albumin/Globulin [Mass ratio] 0.6 {ratio} Normal [facility] Comment on above: Performed By: #### H EPATIC, PHOS, MG, HS TROP, CBC, BMP #### [facility] [address] [place] [address] ALP [Catalytic activity/Vol] 53 U/L Normal 32-92 [facility] Comment on above: Performed By: #### H EPATIC, PHOS, MG, HS TROP, CBC, BMP #### [facility] [address] [place] [address] ALT [Catalytic activity/Vol] 29 U/L Normal 10-60 [facility] Comment on above: Performed By: #### H EPATIC, PHOS, MG, HS TROP, CBC, BMP #### [facility] [address] [place] [address] AST [Catalytic activity/Vol] 44 U/L High 10-42 [facility] Comment on above: Performed By: #### H EPATIC, PHOS, MG, HS TROP, CBC, BMP #### [facility] [address] Bilirubin [Mass/Vol] 0.2 mg/dL Low 0.3-1.2 [facility] Comment on above: Performed By: #### H EPATIC, PHOS, MG, HS TROP, CBC, BMP #### [facility] [address] Calcium [Mass/Vol] 8.0 mg/dL Low 8.2-10.2 [facility] Comment on above: Performed By: #### H EPATIC, PHOS, MG, HS TROP, CBC, BMP #### [facility] [address] Chloride [Moles/Vol] 101 mmol/L Normal 95-114 [facility] Comment on above: Performed By: #### H EPATIC, PHOS, MG, HS TROP, CBC, BMP #### [facility] [address] CO2 [Moles/Vol] 24.4 mmol/L Normal 22.0-30.0 [facility] Comment on above: Performed By: #### H EPATIC, PHOS, MG, HS TROP, CBC, BMP #### [facility] [address] Creatinine [Mass/Vol] 0.66 mg/dL Normal 0.44-1.03 [facility] Comment on above: Performed By: #### H EPATIC, PHOS, MG, HS TROP, CBC, BMP #### [facility] [address] Creatinine Clr Calc Pharmacy 119.04 Normal [facility] Comment on above: Result Comment: PERF ORMED BY: [place] [address] PATHOLOGIST [employer] REPRESENTATIVE DANIELLE ANDERSON M.D. Performed By: #### H EPATIC, PHOS, MG, HS TROP, CBC, BMP #### [facility] [address] Estimated GFR ( Prerna > 60 Normal [facility] Comment on above: Result Comment: GFR estimated reference range: According to KDOQI guidelines, <60 ml/min/1.73m2 is sufficient to diagnose a patient with chronic kidney disease. Performed By: #### H EPATIC, PHOS, MG, HS TROP, CBC, BMP #### [facility] [address] Estimated GFR (Non- Am > 60 Normal [facility] Comment on above: Performed By: #### H EPATIC, PHOS, MG, HS TROP, CBC, BMP #### [address] Globulin (S) [Mass/Vol] 3.3 g/dL Normal [facility] Comment on above: Performed By: #### H EPATIC, PHOS, MG, HS TROP, CBC, BMP #### [address] Glucose [Mass/Vol] 110 mg/dL High 70-100 [facility] Comment on above: Result Comment: [facility] Glucose Reference Range is dependent on time and content of last meal. Glucose of more than 200 mg/dL in a nonstressed, ambulatory subject supports the diagnosis of Diabetes Mellitus. ADA recommended reference range Performed By: #### H EPATIC, PHOS, MG, HS TROP, CBC, BMP #### [address] Potassium [Moles/Vol] 3.7 mmol/L Normal 3.5-5.1 [facility] Comment on above: Performed By: #### H EPATIC, PHOS, MG, HS TROP, CBC, BMP #### [address] Protein [Mass/Vol] 5.4 g/dL Low 6.1-7.9 [facility] Comment on above: Performed By: #### H EPATIC, PHOS, MG, HS TROP, CBC, BMP #### [address] [address] [place] Sodium [Moles/Vol] 135 mmol/L Low 136-146 [facility] Comment on above: Performed By: #### H EPATIC, PHOS, MG, HS TROP, CBC, BMP #### [facility] [address] Urea nitrogen [Mass/Vol] 12 mg/dL Normal 9-23 [facility] Comment on above: Performed By: #### H EPATIC, PHOS, MG, HS TROP, CBC, BMP #### [facility] [address] [place] [address] D-Dimer High Sensitivityon 1 04-12-2020 D-Dimer High Sensitivity 423 ng/mL High 0-243 [facility] Comment on above: Result Comment: The reference [...] patients due to co-morbid conditions. PERFORMED BY: [place] [address] PATHOLOGIST [employer] REPRESENTATIVE DANIELLE ANDERSON M.D. Performed By: #### H EPATIC, PHOS, MG, HS TROP, CBC, BMP #### [facility] [address] [place], [place] [id number] [facility] Complete Blood Count Auto Di ffon 02-09-2021 Basophils (Bld) [#/Vol] 0.0 10*3/uL Normal 0.0-0.2 [facility] Comment on above: Result Comment: PERF ORMED BY: [place] [address] PATHOLOGIST [employer] REPRESENTATIVE DANIELLE ANDERSON M.D. Performed By: #### H EPATIC, PHOS, MG, HS TROP, CBC, BMP #### [address] Basophils/100 WBC (Bld) 0.1 % Normal . [facility] Comment on above: Performed By: #### H EPATIC, PHOS, MG, HS TROP, CBC, BMP #### [address] Eosinophils (Bld) [#/Vol] 0.0 10*3/uL Normal 0.0-0.45 [facility] Comment on above: Performed By: #### H EPATIC, PHOS, MG, HS TROP, CBC, BMP #### [address] Eosinophils/100 WBC (Bld) 0.0 % Normal . [facility] Comment on above: Performed By: #### H EPATIC, PHOS, MG, HS TROP, CBC, BMP #### [address] Erythrocyte distribution width (RBC) [Ratio] 13.1 % Normal 11.9-15.3 [facility] Comment on above: Performed By: #### H EPATIC, PHOS, MG, HS TROP, CBC, BMP #### [address] Hematocrit (Bld) [Volume fraction] 33.3 % Low 34.0-46.4 [facility] Comment on above: Performed By: #### H EPATIC, PHOS, MG, HS TROP, CBC, BMP #### [address] Hemoglobin (Bld) [Mass/Vol] 11.3 g/dL Low 11.8-15.4 [facility] Comment on above: Performed By: #### H EPATIC, PHOS, MG, HS TROP, CBC, BMP #### [address] Lymphocytes (Bld) [#/Vol] 0.5 10*3/uL Low 1.00-4.8 [facility] Comment on above: Performed By: #### H EPATIC, PHOS, MG, HS TROP, CBC, BMP #### [address] Lymphocytes/100 WBC (Bld) 8.1 % Normal . [facility] Comment on above: Performed By: #### H EPATIC, PHOS, MG, HS TROP, CBC, BMP #### [address] MCH (RBC) [Entitic mass] 32.1 pg Normal 24.7-34.3 [facility] Comment on above: Performed By: #### H EPATIC, PHOS, MG, HS TROP, CBC, BMP #### [address] MCV (RBC) [Entitic vol] 94.4 fL Normal 80-100 [facility] Comment on above: Performed By: #### H EPATIC, PHOS, MG, HS TROP, CBC, BMP #### [address] Mean Corpuscular HGB Conc 34.0 g/dL Normal 32.0-35.0 [facility] Comment on above: Performed By: #### H EPATIC, PHOS, MG, HS TROP, CBC, BMP #### [address] Monocytes (Bld) [#/Vol] 0.7 10*3/uL Normal 0.0-0.8 [facility] Comment on above: Performed By: #### H EPATIC, PHOS, MG, HS TROP, CBC, BMP #### [address] Monocytes/100 WBC (Bld) 11.2 % Normal . [facility] Comment on above: Performed By: #### H EPATIC, PHOS, MG, HS TROP, CBC, BMP #### [address] Neutrophils (Bld) [#/Vol] 5.0 10*3/uL Normal 1.8-7.7 [facility] Comment on above: Performed By: #### H EPATIC, PHOS, MG, HS TROP, CBC, BMP #### [address] Neutrophils/100 WBC (Bld) 80.6 % Normal . [facility] Comment on above: Performed By: #### H EPATIC, PHOS, MG, HS TROP, CBC, BMP #### [address] Nucleated RBC/100 WBC (Bld) [Ratio] 0.2 % Normal 0-0.5 [facility] Comment on above: Performed By: #### H EPATIC, PHOS, MG, HS TROP, CBC, BMP #### [address] Platelet mean volume (Bld) [Entitic vol] 8.9 fL Normal 6.3-10.7 [facility] Comment on above: Performed By: #### H EPATIC, PHOS, MG, HS TROP, CBC, BMP #### [address] Platelets (Bld) [#/Vol] 219 10*3/uL Normal 150-450 [facility] Comment on above: Performed By: #### H EPATIC, PHOS, MG, HS TROP, CBC, BMP #### [address] RBC (Bld) [#/Vol] 3.53 10*6/uL Low 3.60-5.00 [facility] Comment on above: Performed By: #### H EPATIC, PHOS, MG, HS TROP, CBC, BMP #### [address] WBC (Bld) [#/Vol] 6.3 10*3/uL Normal 4.5-11.0 [facility] Comment on above: Performed By: #### H EPATIC, PHOS, MG, HS TROP, CBC, BMP #### [address] Comprehensive Metabolic Pane veronique 02-09-2021 Albumin [Mass/Vol] 2.1 g/dL Low 3.2-5.5 [facility] Comment on above: Performed By: #### H EPATIC, PHOS, MG, HS TROP, CBC, BMP #### [facility] [address] Albumin/Globulin [Mass ratio] 0.6 {ratio} Normal [facility] Comment on above: Performed By: #### H EPATIC, PHOS, MG, HS TROP, CBC, BMP #### [address] ALP [Catalytic activity/Vol] 58 U/L Normal 32-92 [facility] Comment on above: Performed By: #### H EPATIC, PHOS, MG, HS TROP, CBC, BMP #### [address] ALT [Catalytic activity/Vol] 26 U/L Normal 10-60 [facility] Comment on above: Performed By: #### H EPATIC, PHOS, MG, HS TROP, CBC, BMP #### [address] AST [Catalytic activity/Vol] 33 U/L Normal 10-42 [facility] Comment on above: Performed By: #### H EPATIC, PHOS, MG, HS TROP, CBC, BMP #### [facility] [address] [place] [address] Bilirubin [Mass/Vol] 0.5 mg/dL Normal 0.3-1.2 [facility] Comment on above: Performed By: #### H EPATIC, PHOS, MG, HS TROP, CBC, BMP #### [facility] [address] [place] [address] Calcium [Mass/Vol] 8.1 mg/dL Low 8.2-10.2 [facility] Comment on above: Performed By: #### H EPATIC, PHOS, MG, HS TROP, CBC, BMP #### [facility] [address] [place] [address] [place] Chloride [Moles/Vol] 99 mmol/L Normal 95-114 [facility] Comment on above: Performed By: #### H EPATIC, PHOS, MG, HS TROP, CBC, BMP #### [address] CO2 [Moles/Vol] 23.4 mmol/L Normal 22.0-30.0 [facility] Comment on above: Performed By: #### H EPATIC, PHOS, MG, HS TROP, CBC, BMP #### [address] Creatinine [Mass/Vol] 0.81 mg/dL Normal 0.44-1.03 [facility] Comment on above: Performed By: #### H EPATIC, PHOS, MG, HS TROP, CBC, BMP #### [address] Creatinine Clr Calc Pharmacy 96.75 [facility] Comment on above: Result Comment: PERF ORMED BY: [place] [address] PATHOLOGIST [employer] REPRESENTATIVE DANIELLE ANDERSON M.D. Performed By: #### H EPATIC, PHOS, MG, HS TROP, CBC, BMP #### [address] Estimated GFR ( Prerna > 60 [facility] Comment on above: Result Comment: GFR estimated reference range: According to KDOQI guidelines, <60 ml/min/1.73m2 is sufficient to diagnose a patient with chronic kidney disease. Performed By: #### H EPATIC, PHOS, MG, HS TROP, CBC, BMP #### [address] Estimated GFR (Non- Am > 60 [facility] Comment on above: Performed By: #### H EPATIC, PHOS, MG, HS TROP, CBC, BMP #### [address] Globulin (S) [Mass/Vol] 3.5 g/dL [facility] Comment on above: Performed By: #### H EPATIC, PHOS, MG, HS TROP, CBC, BMP #### [facility] [address] Glucose [Mass/Vol] 124 mg/dL High 70-100 [facility] Comment on above: Result Comment: [facility] Glucose Reference Range is dependent on time and content of last meal. Glucose of more than 200 mg/dL in a nonstressed, ambulatory subject supports the diagnosis of Diabetes Mellitus. ADA recommended reference range Performed By: #### H EPATIC, PHOS, MG, HS TROP, CBC, BMP #### [facility] [address] Potassium [Moles/Vol] 3.5 mmol/L Normal 3.5-5.1 [facility] Comment on above: Performed By: #### H EPATIC, PHOS, MG, HS TROP, CBC, BMP #### [address] Protein [Mass/Vol] 5.6 g/dL Low 6.1-7.9 [facility] Comment on above: Performed By: #### H EPATIC, PHOS, MG, HS TROP, CBC, BMP #### [address] Sodium [Moles/Vol] 134 mmol/L Low 136-146 [facility] Comment on above: Performed By: #### H EPATIC, PHOS, MG, HS TROP, CBC, BMP #### [address] Urea nitrogen [Mass/Vol] 13 mg/dL Normal 9-23 [facility] Comment on above: Performed By: #### H EPATIC, PHOS, MG, HS TROP, CBC, BMP #### [address] D-Dimer High Sensitivityon 1 04-11-2020 D-Dimer High Sensitivity 568 ng/mL High 0-243 [facility] Comment on above: Result Comment: The reference [...] patients due to co-morbid conditions. PERFORMED BY: [place] [address] PATHOLOGIST [employer] REPRESENTATIVE DANIELLE ANDERSON M.D. Performed By: #### H EPATIC, PHOS, MG, HS TROP, CBC, BMP #### [address] Complete Blood Count Auto Di ffon 02-08-2021 Basophils (Bld) [#/Vol] 0.0 10*3/uL Normal 0.0-0.2 [facility] Comment on above: Result Comment: PERF ORMED BY: [place] [address] PATHOLOGIST [employer] REPRESENTATIVE DANIELLE ANDERSON M.D. Performed By: #### H EPATIC, PHOS, MG, HS TROP, CBC, BMP #### [address] Basophils/100 WBC (Bld) 0.1 % Normal . [facility] Comment on above: Performed By: #### H EPATIC, PHOS, MG, HS TROP, CBC, BMP #### [address] Eosinophils (Bld) [#/Vol] 0.0 10*3/uL Normal 0.0-0.45 [facility] Comment on above: Performed By: #### H EPATIC, PHOS, MG, HS TROP, CBC, BMP #### [address] Eosinophils/100 WBC (Bld) 0.0 % Normal . [facility] Comment on above: Performed By: #### H EPATIC, PHOS, MG, HS TROP, CBC, BMP #### [facility] [address] Erythrocyte distribution width (RBC) [Ratio] 13.2 % Normal 11.9-15.3 [facility] Comment on above: Performed By: #### H EPATIC, PHOS, MG, HS TROP, CBC, BMP #### [address] Hematocrit (Bld) [Volume fraction] 34.4 % Normal 34.0-46.4 [facility] Comment on above: Performed By: #### H EPATIC, PHOS, MG, HS TROP, CBC, BMP #### [address] Hemoglobin (Bld) [Mass/Vol] 11.7 g/dL Low 11.8-15.4 [facility] Comment on above: Performed By: #### H EPATIC, PHOS, MG, HS TROP, CBC, BMP #### [address] Lymphocytes (Bld) [#/Vol] 0.5 10*3/uL Low 1.00-4.8 [facility] Comment on above: Performed By: #### H EPATIC, PHOS, MG, HS TROP, CBC, BMP #### [address] Lymphocytes/100 WBC (Bld) 8.5 % Normal . [facility] Comment on above: Performed By: #### H EPATIC, PHOS, MG, HS TROP, CBC, BMP #### [address] MCH (RBC) [Entitic mass] 32.3 pg Normal 24.7-34.3 [facility] Comment on above: Performed By: #### H EPATIC, PHOS, MG, HS TROP, CBC, BMP #### [address] MCV (RBC) [Entitic vol] 95.2 fL Normal 80-100 [facility] Comment on above: Performed By: #### H EPATIC, PHOS, MG, HS TROP, CBC, BMP #### [address] Mean Corpuscular HGB Conc 33.9 g/dL Normal 32.0-35.0 [facility] Comment on above: Performed By: #### H EPATIC, PHOS, MG, HS TROP, CBC, BMP #### [address] Monocytes (Bld) [#/Vol] 0.6 10*3/uL Normal 0.0-0.8 [facility] Comment on above: Performed By: #### H EPATIC, PHOS, MG, HS TROP, CBC, BMP #### [address] Monocytes/100 WBC (Bld) 10.2 % Normal . [facility] Comment on above: Performed By: #### H EPATIC, PHOS, MG, HS TROP, CBC, BMP #### [address] Neutrophils (Bld) [#/Vol] 5.0 10*3/uL Normal 1.8-7.7 [facility] Comment on above: Performed By: #### H EPATIC, PHOS, MG, HS TROP, CBC, BMP #### [address] Neutrophils/100 WBC (Bld) 81.2 % Normal . [facility] Comment on above: Performed By: #### H EPATIC, PHOS, MG, HS TROP, CBC, BMP #### [address] Nucleated RBC/100 WBC (Bld) [Ratio] 0.1 % Normal 0-0.5 [facility] Comment on above: Performed By: #### H EPATIC, PHOS, MG, HS TROP, CBC, BMP #### [address] Platelet mean volume (Bld) [Entitic vol] 8.9 fL Normal 6.3-10.7 [facility] Comment on above: Performed By: #### H EPATIC, PHOS, MG, HS TROP, CBC, BMP #### [facility] [address] Platelets (Bld) [#/Vol] 198 10*3/uL Normal 150-450 [facility] Comment on above: Performed By: #### H EPATIC, PHOS, MG, HS TROP, CBC, BMP #### [facility] [address] RBC (Bld) [#/Vol] 3.61 10*6/uL Normal 3.60-5.00 [facility] Comment on above: Performed By: #### H EPATIC, PHOS, MG, HS TROP, CBC, BMP #### [address] WBC (Bld) [#/Vol] 6.2 10*3/uL Normal 4.5-11.0 [facility] Comment on above: Performed By: #### H EPATIC, PHOS, MG, HS TROP, CBC, BMP #### [address] Comprehensive Metabolic Pane veronique 02-08-2021 Albumin [Mass/Vol] 2.3 g/dL Low 3.2-5.5 [facility] Comment on above: Performed By: #### H EPATIC, PHOS, MG, HS TROP, CBC, BMP #### [address] Albumin/Globulin [Mass ratio] 0.7 {ratio} Normal [facility] Comment on above: Performed By: #### H EPATIC, PHOS, MG, HS TROP, CBC, BMP #### [facility] [address] [place] [address] ALP [Catalytic activity/Vol] 64 U/L Normal 32-92 [facility] Comment on above: Performed By: #### H EPATIC, PHOS, MG, HS TROP, CBC, BMP #### [address] ALT [Catalytic activity/Vol] 27 U/L Normal 10-60 [facility] Comment on above: Performed By: #### H EPATIC, PHOS, MG, HS TROP, CBC, BMP #### [facility] [address] AST [Catalytic activity/Vol] 29 U/L Normal 10-42 [facility] Comment on above: Performed By: #### H EPATIC, PHOS, MG, HS TROP, CBC, BMP #### [facility] [address] [place] [address] Bilirubin [Mass/Vol] 0.6 mg/dL Normal 0.3-1.2 [facility] Comment on above: Performed By: #### H EPATIC, PHOS, MG, HS TROP, CBC, BMP #### [address] Calcium [Mass/Vol] 8.3 mg/dL Normal 8.2-10.2 [facility] Comment on above: Performed By: #### H EPATIC, PHOS, MG, HS TROP, CBC, BMP #### [facility] [address] [place] [address] Chloride [Moles/Vol] 103 mmol/L Normal 95-114 [facility] Comment on above: Performed By: #### H EPATIC, PHOS, MG, HS TROP, CBC, BMP #### [facility] [address] [place] [address] CO2 [Moles/Vol] 26.8 mmol/L Normal 22.0-30.0 [facility] Comment on above: Performed By: #### H EPATIC, PHOS, MG, HS TROP, CBC, BMP #### [facility] [address] [place] [address] Creatinine [Mass/Vol] 0.95 mg/dL Normal 0.44-1.03 [facility] Comment on above: Performed By: #### H EPATIC, PHOS, MG, HS TROP, CBC, BMP #### [facility] [address] [place] [address] Creatinine Clr Calc Pharmacy 81.67 Normal [facility] Comment on above: Result Comment: PERF ORMED BY: [place] [address] PATHOLOGIST [employer] SALES REPRESENTATIVE DANIELLE ANDERSON M.D. Performed By: #### H EPATIC, PHOS, MG, HS TROP, CBC, BMP #### [address] Estimated GFR ( Prerna > 60 Normal [facility] Comment on above: Result Comment: GFR estimated reference range: According to KDOQI guidelines, <60 ml/min/1.73m2 is sufficient to diagnose a patient with chronic kidney disease. Performed By: #### H EPATIC, PHOS, MG, HS TROP, CBC, BMP #### [address] Estimated GFR (Non- Am > 60 Normal [facility] Comment on above: Performed By: #### H EPATIC, PHOS, MG, HS TROP, CBC, BMP #### [address] Globulin (S) [Mass/Vol] 3.5 g/dL Normal [facility] Comment on above: Performed By: #### H EPATIC, PHOS, MG, HS TROP, CBC, BMP #### [address] Glucose [Mass/Vol] 133 mg/dL High 70-100 [facility] Comment on above: Result Comment: [place] Glucose Reference Range is dependent on time and content of last meal. Glucose of more than 200 mg/dL in a nonstressed, ambulatory subject supports the diagnosis of Diabetes Mellitus. ADA recommended reference range Performed By: #### H EPATIC, PHOS, MG, HS TROP, CBC, BMP #### [address] Potassium [Moles/Vol] 4.1 mmol/L Normal 3.5-5.1 [facility] Comment on above: Performed By: #### H EPATIC, PHOS, MG, HS TROP, CBC, BMP #### [address] Protein [Mass/Vol] 5.8 g/dL Low 6.1-7.9 [facility] Comment on above: Performed By: #### H EPATIC, PHOS, MG, HS TROP, CBC, BMP #### [address] Sodium [Moles/Vol] 138 mmol/L Normal 136-146 [facility] Comment on above: Performed By: #### H EPATIC, PHOS, MG, HS TROP, CBC, BMP #### [address] Urea nitrogen [Mass/Vol] 17 mg/dL Normal 9-23 [facility] Comment on above: Performed By: #### H EPATIC, PHOS, MG, HS TROP, CBC, BMP #### [address] D-Dimer High Sensitivityon 1 04-10-2020 D-Dimer High Sensitivity 775 ng/mL High 0-243 [facility] Comment on above: Result Comment: The reference [...] patients due to co-morbid conditions. PERFORMED BY: [place] [address] PATHOLOGIST [employer] SALES REPRESENTATIVE DANIELLE ANDERSON M.D. Performed By: #### H EPATIC, PHOS, MG, HS TROP, CBC, BMP #### [address] US venous duplex LE BIon US venous duplex LE BI [facility] [place] [address] [place] [address] Ultrasound Report Signed Patient: Elizabeth Sánchez MR#: [id number] : 1965 Acct:[id number] Age/Sex: 55 / F ADM Date: 02/06/21 Loc: Room: [address] [place] [address] Type: ADM IN Attending Dr: Randa Feng [...] Ramses Osuna M.D.02/08/2021 11:33 AM Dictation Location: [place] [address] Tech: Lorna Menjivar Transcribed By: TAD 02/08/21 1133 Dictated By: Ramses Osuna MD 02/08/21 1131 Signed By: 02/08/21 1133 Normal [facility] C-Reactive Proteinon 021 C-Reactive Protein 24.5 mg/dL High 0.0-1.0 [facility] Comment on above: Performed By: #### H EPATIC, PHOS, MG, HS TROP, CBC, BMP #### [address] Complete Blood Count Auto Di ffon 02-07-2021 Basophils (Bld) [#/Vol] 0.0 10*3/uL Normal 0.0-0.2 [facility] Comment on above: Result Comment: PERF ORMED BY: [place] [address] PATHOLOGIST [employer] SALES REPRESENTATIVE DANIELLE ANDERSON M.D. Performed By: #### H EPATIC, PHOS, MG, HS TROP, CBC, BMP #### [address] Basophils/100 WBC (Bld) 0.1 % Normal . [facility] Comment on above: Performed By: #### H EPATIC, PHOS, MG, HS TROP, CBC, BMP #### [address] Eosinophils (Bld) [#/Vol] 0.0 10*3/uL Normal 0.0-0.45 [facility] Comment on above: Performed By: #### H EPATIC, PHOS, MG, HS TROP, CBC, BMP #### [address] Eosinophils/100 WBC (Bld) 0.0 % Normal . [facility] Comment on above: Performed By: #### H EPATIC, PHOS, MG, HS TROP, CBC, BMP #### [address] Erythrocyte distribution width (RBC) [Ratio] 13.3 % Normal 11.9-15.3 [facility] Comment on above: Performed By: #### H EPATIC, PHOS, MG, HS TROP, CBC, BMP #### [address] Hematocrit (Bld) [Volume fraction] 33.7 % Low 34.0-46.4 [facility] Comment on above: Performed By: #### H EPATIC, PHOS, MG, HS TROP, CBC, BMP #### [address] Hemoglobin (Bld) [Mass/Vol] 11.6 g/dL Low 11.8-15.4 [facility] Comment on above: Performed By: #### H EPATIC, PHOS, MG, HS TROP, CBC, BMP #### [address] Lymphocytes (Bld) [#/Vol] 0.7 10*3/uL Low 1.00-4.8 [facility] Comment on above: Performed By: #### H EPATIC, PHOS, MG, HS TROP, CBC, BMP #### [address] Lymphocytes/100 WBC (Bld) 11.3 % Normal . [facility] Comment on above: Performed By: #### H EPATIC, PHOS, MG, HS TROP, CBC, BMP #### [address] MCH (RBC) [Entitic mass] 32.4 pg Normal 24.7-34.3 [facility] Comment on above: Performed By: #### H EPATIC, PHOS, MG, HS TROP, CBC, BMP #### [address] MCV (RBC) [Entitic vol] 94.2 fL Normal 80-100 [facility] Comment on above: Performed By: #### H EPATIC, PHOS, MG, HS TROP, CBC, BMP #### [address] Mean Corpuscular HGB Conc 34.5 g/dL Normal 32.0-35.0 [facility] Comment on above: Performed By: #### H EPATIC, PHOS, MG, HS TROP, CBC, BMP #### [place] [address] [place] Monocytes (Bld) [#/Vol] 0.6 10*3/uL Normal 0.0-0.8 [facility] Comment on above: Performed By: #### H EPATIC, PHOS, MG, HS TROP, CBC, BMP #### [place] [address] [place] Monocytes/100 WBC (Bld) 9.7 % Normal . [facility] Comment on above: Performed By: #### H EPATIC, PHOS, MG, HS TROP, CBC, BMP #### [address] Neutrophils (Bld) [#/Vol] 4.9 10*3/uL Normal 1.8-7.7 [facility] Comment on above: Performed By: #### H EPATIC, PHOS, MG, HS TROP, CBC, BMP #### [address] Neutrophils/100 WBC (Bld) 78.9 % Normal . [facility] Comment on above: Performed By: #### H EPATIC, PHOS, MG, HS TROP, CBC, BMP #### [address] Nucleated RBC/100 WBC (Bld) [Ratio] 0.0 % Normal 0-0.5 [facility] Comment on above: Performed By: #### H EPATIC, PHOS, MG, HS TROP, CBC, BMP #### [address] Platelet mean volume (Bld) [Entitic vol] 8.5 fL Normal 6.3-10.7 [facility] Comment on above: Performed By: #### H EPATIC, PHOS, MG, HS TROP, CBC, BMP #### [address] Platelets (Bld) [#/Vol] 179 10*3/uL Normal 150-450 [facility] Comment on above: Performed By: #### H EPATIC, PHOS, MG, HS TROP, CBC, BMP #### [address] RBC (Bld) [#/Vol] 3.58 10*6/uL Low 3.60-5.00 [facility] Comment on above: Performed By: #### H EPATIC, PHOS, MG, HS TROP, CBC, BMP #### [address] WBC (Bld) [#/Vol] 6.2 10*3/uL Normal 4.5-11.0 [facility] Comment on above: Performed By: #### H EPATIC, PHOS, MG, HS TROP, CBC, BMP #### [facility] [address] [place] [address] Comprehensive Metabolic Pane veronique 02-07-2021 Albumin [Mass/Vol] 2.4 g/dL Low 3.2-5.5 [facility] Comment on above: Performed By: #### H EPATIC, PHOS, MG, HS TROP, CBC, BMP #### [facility] [address] [place] [address] Albumin/Globulin [Mass ratio] 0.7 {ratio} Normal [facility] Comment on above: Performed By: #### H EPATIC, PHOS, MG, HS TROP, CBC, BMP #### [address] ALP [Catalytic activity/Vol] 63 U/L Normal 32-92 [facility] Comment on above: Performed By: #### H EPATIC, PHOS, MG, HS TROP, CBC, BMP #### [address] ALT [Catalytic activity/Vol] 32 U/L Normal 10-60 [facility] Comment on above: Performed By: #### H EPATIC, PHOS, MG, HS TROP, CBC, BMP #### [facility] [address] [place] [address] AST [Catalytic activity/Vol] 34 U/L Normal 10-42 [facility] Comment on above: Performed By: #### H EPATIC, PHOS, MG, HS TROP, CBC, BMP #### [facility] [address] [place] [address] Bilirubin [Mass/Vol] 0.6 mg/dL Normal 0.3-1.2 [facility] Comment on above: Performed By: #### H EPATIC, PHOS, MG, HS TROP, CBC, BMP #### [address] [place] [address] [place] Calcium [Mass/Vol] 8.0 mg/dL Low 8.2-10.2 [facility] Comment on above: Performed By: #### H EPATIC, PHOS, MG, HS TROP, CBC, BMP #### [address] Chloride [Moles/Vol] 103 mmol/L Normal 95-114 [facility] Comment on above: Performed By: #### H EPATIC, PHOS, MG, HS TROP, CBC, BMP #### [address] CO2 [Moles/Vol] 24.0 mmol/L Normal 22.0-30.0 [facility] Comment on above: Performed By: #### H EPATIC, PHOS, MG, HS TROP, CBC, BMP #### [address] Creatinine [Mass/Vol] 0.96 mg/dL Normal 0.44-1.03 [facility] Comment on above: Performed By: #### H EPATIC, PHOS, MG, HS TROP, CBC, BMP #### [facility] [address] [place] [address] Creatinine Clr Calc Pharmacy 81.55 [facility] Comment on above: Performed By: #### H EPATIC, PHOS, MG, HS TROP, CBC, BMP #### [facility] [address] [place] [address] Estimated GFR ( Prerna > 60 [facility] Comment on above: Result Comment: GFR estimated reference range: According to KDOQI guidelines, <60 ml/min/1.73m2 is sufficient to diagnose a patient with chronic kidney disease. Performed By: #### H EPATIC, PHOS, MG, HS TROP, CBC, BMP #### [address] Estimated GFR (Non- Am 60 [facility] Comment on above: Performed By: #### H EPATIC, PHOS, MG, HS TROP, CBC, BMP #### [address] [place] [address] [place] Globulin (S) [Mass/Vol] 3.5 g/dL Normal [facility] Comment on above: Performed By: #### H EPATIC, PHOS, MG, HS TROP, CBC, BMP #### [address] Glucose [Mass/Vol] 116 mg/dL High 70-100 [facility] Comment on above: Result Comment: [facility] Glucose Reference Range is dependent on time and content of last meal. Glucose of more than 200 mg/dL in a nonstressed, ambulatory subject supports the diagnosis of Diabetes Mellitus. ADA recommended reference range Performed By: #### H EPATIC, PHOS, MG, HS TROP, CBC, BMP #### [address] Potassium [Moles/Vol] 3.9 mmol/L Normal 3.5-5.1 [facility] Comment on above: Performed By: #### H EPATIC, PHOS, MG, HS TROP, CBC, BMP #### [address] Protein [Mass/Vol] 5.9 g/dL Low 6.1-7.9 [facility] Comment on above: Performed By: #### H EPATIC, PHOS, MG, HS TROP, CBC, BMP #### [address] Sodium [Moles/Vol] 137 mmol/L Normal 136-146 [facility] Comment on above: Performed By: #### H EPATIC, PHOS, MG, HS TROP, CBC, BMP #### [facility] [address] [place] [address] [place] Urea nitrogen [Mass/Vol] 21 mg/dL Normal 9-23 [facility] Comment on above: Performed By: #### H EPATIC, PHOS, MG, HS TROP, CBC, BMP #### [address] D-Dimer High Sensitivityon 04-09-2020 D-Dimer High Sensitivity 3224 ng/mL High 0-243 [facility] Comment on above: Result Comment: The reference [...] patients due to co-morbid conditions. PERFORMED BY: [place] [address] PATHOLOGIST [employer] SALES REPRESENTATIVE DANIELLE ANDERSON M.D. Performed By: #### H EPATIC, PHOS, MG, HS TROP, CBC, BMP #### [address] ECG 12 lead ECGon 02-07-2021 ECG 12 lead ECG [facility] [place] [address] [place] [address] Electrocardiograph Report Signed Patient: Elizabeth Sánchez MR#: [id number] : 1965 Acct:[id number] Age/Sex: 55 / F ADM Date: 02/06/21 Loc: Room: [address] [place] [address] Type: ADM IN Attending Dr: Randa Feng [...] MUS Signed By Andre Mendoza DO 02/08 Normal [facility] LDH Lactate Dehydrogenaseon 02-07-2021 LDH Lactate Dehydrogenase 316 U/L High 45-190 [facility] Comment on above: Performed By: #### H EPATIC, PHOS, MG, HS TROP, CBC, BMP #### [facility] [address] Prealbuminon 02-07-2021 Prealbumin [Mass/Vol] 5.1 mg/dL Low 18.0-38.0 [facility] Comment on above: Performed By: #### H EPATIC, PHOS, MG, HS TROP, CBC, BMP #### [facility] [address] T SPOT TB TESTon 02-07-2021 T SPOT TB TEST Normal [facility] Comment on above: Result Comment: See report. Scanned copy available in EMR. PERFORMED BY: [place] [address] PATHOLOGIST [employer] SALES REPRESENTATIVE DANIELLE ANDERSON M.D. Performed By: #### H EPATIC, PHOS, MG, HS TROP, CBC, BMP #### [facility] [address] [place] [address] Troponin I High Sensitivityo n 02-07-2021 Troponin I High Sensitivity 15 pg/mL Normal 0-15 [facility] Comment on above: Result Comment: PERF ORMED BY: [place] [address] PATHOLOGIST [employer] SALES REPRESENTATIVE DANIELLE ANDERSON M.D. Performed By: #### H EPATIC, PHOS, MG, HS TROP, CBC, BMP #### [facility] [address] [place] [address] Vit. B12/Folate Profileon Cobalamin (Vitamin B12) [Mass/Vol] 171 pg/mL Low 180-914 [facility] Comment on above: Performed By: #### H EPATIC, PHOS, MG, HS TROP, CBC, BMP #### [facility] [address] [place] [address] Folate 12.0 ng/mL Normal >5.9 [facility] Comment on above: Result Comment: Lizeth te reference range: >5.9 ng/ml The WHO technical consultation on folate and vitamin b12 deficiencies has determined that folate concentrations less than 4 ng/ml are considered deficient. Performed By: #### H EPATIC, PHOS, MG, HS TROP, CBC, BMP #### [facility] [address] [place] [id number] [facility] Vitamin B1 (Thiamine) Bloodo n 02-07-2021 Vitamin B1 (Thiamine) Blood 87.5 Normal 66.5-200.0 [facility] Comment on above: Result Comment: This test was developed and its performance characteristics determined by [facility]. It has not been cleared or approved by the Food and Drug Administration. Performed at: [address] [id number] [employer]: Rebecca Griffin MD, Phone: [phone] PERFORMED BY: [place] [address] PATHOLOGIST [employer] SALES REPRESENTATIVE DANIELLE ANDERSON M.D. Performed By: #### H EPATIC, PHOS, MG, HS TROP, CBC, BMP #### [place] [id number] [facility] Vitamin D 25 Hydroxy Totalon 02-07-2021 Vitamin D 25 Hydroxy Total 39.2 ng/mL Normal 30-100 [facility] Comment on above: Result Comment: [place] MIN D STATUS 25(OH)VITAMIN D RANGE (ng/mL) Deficient <20 Insufficient 20 to <30 Sufficient 30 to 100 Reference: Toby MF,Eamon NC, Neyda GREEN, et al. Evaluation,treatment, and prevention of vitamin D deficiency; an Endocrine Society clinical practice guideline. JCEM. 2010; 96(7):1911-30. PERFORMED BY: [place] [address] PATHOLOGIST [employer] SALES REPRESENTATIVE DANIELLE ANDERSON M.D. Performed By: #### H EPATIC, PHOS, MG, HS TROP, CBC, BMP #### [place] [id number] [facility] Ammoniaon 02-06-2021 Ammonia (P) [Moles/Vol] 17 umol/L Normal 11-35 [facility] Comment on above: Result Comment: PERF ORMED BY: [place] [address] PATHOLOGIST [employer] SAL[employer] REPRESENTATIVE DANIELLE ANDERSON M.D. Performed By: #### B STRAINER TENDER, AMM #### [address] Arterial Blood Gason 021 ABG Base Excess 0.8 mmol/L Normal -3.0-3.0 [facility] Comment on above: Performed By: #### A BG #### Point of Care testing , ABG Frac Inspired O2 56 % Normal [facility] Comment on above: Performed By: #### A BG #### Point of Care testing , ABG Oxygen Content 7.6 mmol/L Normal 6.6-9.7 [facility] Comment on above: Performed By: #### A BG #### Point of Care testing , ABG Oxygen Saturation 94.5 % Low 95.0-100.0 [facility] Comment on above: Performed By: #### A BG #### Point of Care testing , ABG PCO2 34.3 mm[Hg] Low 35.0-45.0 [facility] Comment on above: Performed By: #### A BG #### Point of Care testing , ABG PH 7.47 High 7.35-7.45 [facility] Comment on above: Performed By: #### A BG #### Point of Care testing , ABG PO2 69.5 mm[Hg] Low 80.0-100.0 [facility] Comment on above: Performed By: #### A BG #### Point of Care testing , CO2 [Moles/Vol] 25.2 mmol/L Normal 23.0-27.0 [facility] Comment on above: Performed By: #### A BG #### Point of Care testing , HCO3 (Bld) [Moles/Vol] 24.1 mmol/L Normal 23.0-29.0 [facility] Comment on above: Performed By: #### A BG #### Point of Care testing , Respiratory Critical Normal [facility] Comment on above: Result Comment: Crit ical Value called on: 02/06/2021 at 09:25 PERFORMED BY: [place] [address] PATHOLOGIST [employer] SAL[employer] REPRESENTATIVE DANIELLE ANDERSON M.D. Performed By: #### A BG #### Point of Care testing , VBG Draw Site Right Radial Normal [facility] Comment on above: Performed By: #### A BG #### Point of Care testing , B-Type Natriuretic Peptideon 02-06-2021 Natriuretic peptide B (Bld) [Mass/Vol] 42.0 pg/mL Normal 5-100 [facility] Comment on above: Result Comment: PERF ORMED BY: [place] [address] PATHOLOGIST [employer] SAL[employer] REPRESENTATIVE DANIELLE ANDERSON M.D. Performed By: #### B STRAINER TENDER, AMM #### [facility] [address] Basic Metabolic Panelon 11- Calcium [Mass/Vol] 8.3 mg/dL Normal 8.2-10.2 [facility] Comment on above: Performed By: #### H EPATIC, PHOS, MG, HS TROP, CBC, BMP #### [facility] [address] [place] [address] [place] Chloride [Moles/Vol] 100 mmol/L Normal 95-114 [facility] Comment on above: Performed By: #### H EPATIC, PHOS, MG, HS TROP, CBC, BMP #### [facility] [address] [place] [address] [place] CO2 [Moles/Vol] 26.5 mmol/L Normal 22.0-30.0 [facility] Comment on above: Performed By: #### H EPATIC, PHOS, MG, HS TROP, CBC, BMP #### [facility] [address] [place] [address] [place] Creatinine [Mass/Vol] 1.17 mg/dL High 0.44-1.03 [facility] Comment on above: Performed By: #### H EPATIC, PHOS, MG, HS TROP, CBC, BMP #### [facility] [address] Creatinine Clr Calc Pharmacy 65.51 [facility] Comment on above: Performed By: #### H EPATIC, PHOS, MG, HS TROP, CBC, BMP #### [facility] [address] Estimated GFR ( Prerna 58 [facility] Comment on above: Result Comment: GFR estimated reference range: According to KDOQI guidelines, <60 ml/min/1.73m2 is sufficient to diagnose a patient with chronic kidney disease. Performed By: #### H EPATIC, PHOS, MG, HS TROP, CBC, BMP #### [facility] [address] Estimated GFR (Non- Am 48 [facility] Comment on above: Performed By: #### H EPATIC, PHOS, MG, HS TROP, CBC, BMP #### [facility] [address] Glucose [Mass/Vol] 125 mg/dL High 70-100 [facility] Comment on above: Result Comment: [place] Glucose Reference Range is dependent on time and content of last meal. Glucose of more than 200 mg/dL in a nonstressed, ambulatory subject supports the diagnosis of Diabetes Mellitus. ADA recommended reference range Performed By: #### H EPATIC, PHOS, MG, HS TROP, CBC, BMP #### [facility] [address] Potassium Normal 3.5-5.1 [facility] Comment on above: Result Comment: Spec imen hemolyzed, redraw requested Performed By: #### H EPATIC, PHOS, MG, HS TROP, CBC, BMP #### [facility] [address] Sodium [Moles/Vol] 139 mmol/L Normal 136-146 [facility] Comment on above: Performed By: #### H EPATIC, PHOS, MG, HS TROP, CBC, BMP #### [facility] [address] [place] [address] Urea nitrogen [Mass/Vol] 27 mg/dL High 9-23 [facility] Comment on above: Performed By: #### H EPATIC, PHOS, MG, HS TROP, CBC, BMP #### [facility] [address] [place] [address] Blood Cultureon 02-06-2021 Bacteria identified Cx Nom (Bld) NO GROWTH 5 DAYS PERFORMED BY: [place] [address] PATHOLOGIST [employer] SALES REPRESENTATIVE DANIELLE ANDERSON M.D. [facility] Comment on above: Performed By: #### H EPATIC, PHOS, MG, HS TROP, CBC, BMP #### [facility] [address] [place] [address] Bacteria identified Cx Nom (Bld) NO GROWTH 5 DAYS PERFORMED BY: [place] [address] PATHOLOGIST [employer] SALES REPRESENTATIVE DANIELLE ANDERSON M.D. [facility] Comment on above: Performed By: #### H EPATIC, PHOS, MG, HS TROP, CBC, BMP #### [address] COVID-19 Antigenon 1 COVID-19 Antigen Results called [...] its performance Drew Disclaimer characteristic determined by [employer] and Drew Disclaimer validated at [facility]. This Drew Disclaimer test has not been [...] Emergency Use Authorization for Coronavirus Drew Disclaimer is during the Public Health Emergency) Drew Disclaimer [...] is terminated or revoked sooner. PERFORMED BY: [facility] [address] [facility] [place] [address] PATHOLOGIST [employer] SALES REPRESENTATIVE DANIELLE ANDERSON M.D. [facility] Comment on above: Performed By: #### C OVID-19 DREW, SOFIAPOS #### [facility] [address] [place] [address] [facility] [address] angio chest PE protocolon 02-06-2021 CT angio chest PE protocol [facility] [address] [place] [address] [place] [address] CT Scan Report Signed Patient: Elizabeth Sánchez MR#: [id number] : 1965 Acct:[id number] Age/Sex: 55 / F ADM Date: 02/06/21 Loc: ER Room: Type: [facility] ER Attending Dr: Ordering Provider: [...] Ramses Gary M.D.02/06/2021 1:30 PM Dictation Location: [place] [address] Transcribed By: [facility] 02/06/21 1330 Dictated By: Ramses Gary DO 02/06/21 1326 Signed By: 02/06/21 1330 Normal [facility] CT head/brain wo conon 02-06 CT head/brain wo con [facility] [place] [address] [place] [id number] Scan Report Signed Patient: Elizabeth Sánchez MR#: [id number] : 1965 Acct:[id number] Age/Sex: 55 / F ADM Date: 02/06/21 Loc: ER Room: Type: [facility] ER Attending Dr: Ordering Provider: [...] Ananth Hanson M.D.02/06/2021 10:25 AM Dictation Location: [place] [address] Transcribed By: [facility] 02/06/21 1025 Dictated By: Ananth Hanson MD 02/06/21 1014 Signed By: 02/06/21 1025 Normal [facility] Complete Blood Count Auto Di ffon 02-06-2021 Basophils (Bld) [#/Vol] 0.0 10*3/uL Normal 0.0-0.2 [facility] Comment on above: Result Comment: PERF ORMED BY: [address] [address] PATHOLOGIST [employer] SALES REPRESENTATIVE DANIELLE ANDERSON M.D. Performed By: #### H EPATIC, PHOS, MG, HS TROP, CBC, BMP #### [address] Basophils/100 WBC (Bld) 0.2 % Normal . [facility] Comment on above: Performed By: #### H EPATIC, PHOS, MG, HS TROP, CBC, BMP #### [address] Eosinophils (Bld) [#/Vol] 0.0 10*3/uL Normal 0.0-0.45 [facility] Comment on above: Performed By: #### H EPATIC, PHOS, MG, HS TROP, CBC, BMP #### [address] Eosinophils/100 WBC (Bld) 0.0 % Normal . [facility] Comment on above: Performed By: #### H EPATIC, PHOS, MG, HS TROP, CBC, BMP #### [address] Erythrocyte distribution width (RBC) [Ratio] 13.6 % Normal 11.9-15.3 [facility] Comment on above: Performed By: #### H EPATIC, PHOS, MG, HS TROP, CBC, BMP #### [address] Hematocrit (Bld) [Volume fraction] 37.9 % Normal 34.0-46.4 [facility] Comment on above: Performed By: #### H EPATIC, PHOS, MG, HS TROP, CBC, BMP #### [address] Hemoglobin (Bld) [Mass/Vol] 12.7 g/dL Normal 11.8-15.4 [facility] Comment on above: Performed By: #### H EPATIC, PHOS, MG, HS TROP, CBC, BMP #### [address] Lymphocytes (Bld) [#/Vol] 0.6 10*3/uL Low 1.00-4.8 [facility] Comment on above: Performed By: #### H EPATIC, PHOS, MG, HS TROP, CBC, BMP #### [address] Lymphocytes/100 WBC (Bld) 11.4 % Normal . [facility] Comment on above: Performed By: #### H EPATIC, PHOS, MG, HS TROP, CBC, BMP #### [address] MCH (RBC) [Entitic mass] 31.7 pg Normal 24.7-34.3 [facility] Comment on above: Performed By: #### H EPATIC, PHOS, MG, HS TROP, CBC, BMP #### [address] MCV (RBC) [Entitic vol] 94.6 fL Normal 80-100 [facility] Comment on above: Performed By: #### H EPATIC, PHOS, MG, HS TROP, CBC, BMP #### [address] Mean Corpuscular HGB Conc 33.5 g/dL Normal 32.0-35.0 [facility] Comment on above: Performed By: #### H EPATIC, PHOS, MG, HS TROP, CBC, BMP #### [address] Monocytes (Bld) [#/Vol] 0.7 10*3/uL Normal 0.0-0.8 [facility] Comment on above: Performed By: #### H EPATIC, PHOS, MG, HS TROP, CBC, BMP #### [address] Monocytes/100 WBC (Bld) 11.6 % Normal . [facility] Comment on above: Performed By: #### H EPATIC, PHOS, MG, HS TROP, CBC, BMP #### [address] Neutrophils (Bld) [#/Vol] 4.3 10*3/uL Normal 1.8-7.7 [facility] Comment on above: Performed By: #### H EPATIC, PHOS, MG, HS TROP, CBC, BMP #### [facility] [address] Neutrophils/100 WBC (Bld) 76.8 % Normal . [facility] Comment on above: Performed By: #### H EPATIC, PHOS, MG, HS TROP, CBC, BMP #### [facility] [address] Nucleated RBC/100 WBC (Bld) [Ratio] 0.2 % Normal 0-0.5 [facility] Comment on above: Performed By: #### H EPATIC, PHOS, MG, HS TROP, CBC, BMP #### [address] Platelet mean volume (Bld) [Entitic vol] 9.0 fL Normal 6.3-10.7 [facility] Comment on above: Performed By: #### H EPATIC, PHOS, MG, HS TROP, CBC, BMP #### [facility] [address] Platelets (Bld) [#/Vol] 197 10*3/uL Normal 150-450 [facility] Comment on above: Performed By: #### H EPATIC, PHOS, MG, HS TROP, CBC, BMP #### [address] RBC (Bld) [#/Vol] 4.01 10*6/uL Normal 3.60-5.00 [facility] Comment on above: Performed By: #### H EPATIC, PHOS, MG, HS TROP, CBC, BMP #### [place] [address] [place] WBC (Bld) [#/Vol] 5.6 10*3/uL Normal 4.5-11.0 [facility] Comment on above: Performed By: #### H EPATIC, PHOS, MG, HS TROP, CBC, BMP #### [place] [id number] [facility] D-Dimer High Sensitivityon 1 04-08-2020 D-Dimer High Sensitivity 616 ng/mL High 0-243 [facility] Comment on above: Result Comment: The reference [...] patients due to co-morbid conditions. PERFORMED BY: [place] [address] PATHOLOGIST [employer] SALES REPRESENTATIVE DANIELLE ANDERSON M.D. Performed By: #### H EPATIC, PHOS, MG, HS TROP, CBC, BMP #### [place] [id number] [facility] ECG 12 lead ECGon 02-06-2021 ECG 12 lead ECG [facility] [place] [address] [place] [address] Electrocardiograph Report Signed Patient: Elizabeth Sánchez MR#: [id number] : 1965 Acct:[id number] Age/Sex: 55 / F ADM Date: 02/06/21 Loc: Room: [address] [place] [address] Type: ADM IN Attending Dr: Randa Feng [...] MUS Signed By Andre Mendoza DO 02/08 [facility] Hepatic Panelon 02-06-2021 Albumin [Mass/Vol] 2.8 g/dL Low 3.2-5.5 [facility] Comment on above: Performed By: #### H EPATIC, PHOS, MG, HS TROP, CBC, BMP #### [facility] [address] Albumin/Globulin [Mass ratio] 0.8 {ratio} [facility] Comment on above: Performed By: #### H EPATIC, PHOS, MG, HS TROP, CBC, BMP #### [facility] [address] [place] [address] ALP [Catalytic activity/Vol] 78 U/L Normal 32-92 [facility] Comment on above: Performed By: #### H EPATIC, PHOS, MG, HS TROP, CBC, BMP #### [facility] [address] [place] [address] ALT [Catalytic activity/Vol] 45 U/L Normal 10-60 [facility] Comment on above: Performed By: #### H EPATIC, PHOS, MG, HS TROP, CBC, BMP #### [facility] [address] [place] [address] AST [Catalytic activity/Vol] 47 U/L High 10-42 [facility] Comment on above: Performed By: #### H EPATIC, PHOS, MG, HS TROP, CBC, BMP #### [facility] [address] [place] [address] Bilirubin [Mass/Vol] 0.9 mg/dL Normal 0.3-1.2 [facility] Comment on above: Performed By: #### H EPATIC, PHOS, MG, HS TROP, CBC, BMP #### [facility] [address] [place] [address] Bilirubin,Indirect 0.6 mg/dL Normal [facility] Comment on above: Performed By: #### H EPATIC, PHOS, MG, HS TROP, CBC, BMP #### [address] Bilirubin.indirect [Mass/Vol] 0.3 mg/dL Normal 0.0-0.4 [facility] Comment on above: Performed By: #### H EPATIC, PHOS, MG, HS TROP, CBC, BMP #### [address] Globulin (S) [Mass/Vol] 3.6 g/dL Normal [facility] Comment on above: Performed By: #### H EPATIC, PHOS, MG, HS TROP, CBC, BMP #### [address] Protein [Mass/Vol] 6.4 g/dL Normal 6.1-7.9 [facility] Comment on above: Performed By: #### H EPATIC, PHOS, MG, HS TROP, CBC, BMP #### [address] Magnesiumon 02-06-2021 Magnesium [Mass/Vol] 2.4 mg/dL Normal 1.6-2.6 [facility] Comment on above: Result Comment: PERF ORMED BY: [place] [address] PATHOLOGIST [employer] SALES REPRESENTATIVE DANIELLE ANDERSON M.D. Performed By: #### H EPATIC, PHOS, MG, HS TROP, CBC, BMP #### [address] Partial Thromboplastin Timeo n 02-06-2021 aPTT Coag (Bld) [Time] 29.1 s Normal 25.1-36.5 [facility] Comment on above: Performed By: #### H EPATIC, PHOS, MG, HS TROP, CBC, BMP #### [address] Phosphoruson 02-06-2021 Phosphate [Mass/Vol] 3.1 mg/dL Normal 2.5-4.6 [facility] Comment on above: Performed By: #### H EPATIC, PHOS, MG, HS TROP, CBC, BMP #### [facility] [address] [place] [address] [place] Prothrombin Time INRon 02-06 INR Coag (PPP) [Relative time] 1.4 {INR} Normal [facility] Comment on above: Result Comment: INR Therapeutic [...] PHOS, MG, HS TROP, CBC, BMP #### [facility] [address] PT Coag (PPP) [Time] 15.8 s High 9.0-12.9 [facility] Comment on above: Performed By: #### H EPATIC, PHOS, MG, HS TROP, CBC, BMP #### [facility] [address] Redraw Potassiumon 1 Potassium [Moles/Vol] 3.6 mmol/L Normal 3.5-5.1 [facility] Comment on above: Result Comment: PERF ORMED BY: [place] [address] PATHOLOGIST [employer] SALES REPRESENTATIVE DANIELLE ANDERSON M.D. Performed By: #### H EPATIC, PHOS, MG, HS TROP, CBC, BMP #### [facility] [address] Drew Ag Positiveon 02-07-20 21 Drew Ag Positive Positive Critically abnormal Negative [facility] Comment on above: Result Comment: This is a duplicate Drew SARS Antigen (PRECIOUS) result to be used for statistical tracking purpose only. PERFORMED BY: [place] [address] PATHOLOGIST [employer] SALES REPRESENTATIVE DANIELLE ANDERSON M.D. Performed By: #### H EPATIC, PHOS, MG, HS TROP, CBC, BMP #### [facility] [address] Troponin I High Sensitivityo n 02-06-2021 Troponin I High Sensitivity 14 pg/mL Normal 0-15 [facility] Comment on above: Result Comment: PERF ORMED BY: [address] [place] [address] PATHOLOGIST [employer] SALES REPRESENTATIVE DANIELLE ANDERSON M.D. Performed By: #### H EPATIC, PHOS, MG, HS TROP, CBC, BMP #### [address] XR chest 1V portableon 02-06 XR chest 1V portable [facility] [place] [address] [place] [address] XRay Report Signed Patient: Elizabeth Sánchez MR#: [id number] : 1965 Acct:[id number] Age/Sex: 55 / F ADM Date: 02/06/21 Loc: ER Room: Type: [facility] ER Attending Dr: Ordering Provider: [...] Ananth Hanson M.D.02/06/2021 9:49 AM Dictation Location: [place] [address] Transcribed By: [facility] 02/06/21948 Dictated By: Ananth Hanson MD 02/06/2144 Signed By: 02/06/219[address] [facility] Vital Signs Date Time Vital Sign Value Performing Clinician Facility 04-28-2023 08:04-0500 Body temperature 98.29 [degF] Nola Skelton MD Work Phone: [employer] 04-28-2023 08:04-0500 Diastolic blood pressure 91 mm[Hg] Nola Skelton MD Work Phone: [employer] 04-28-2023 08:04-0500 Heart rate 91 /min Nola Skelton MD Work Phone: [employer] 04-28-2023 08:04-0500 Respiratory rate 19 /min Nola Skelton MD Work Phone: [employer] 04-28-2023 08:04-0500 SaO2% (BldA) [Mass fraction] 97 % Nola Skelton MD Work Phone: [employer] 04-28-2023 08:04-0500 Systolic blood pressure 122 mm[Hg] Nola Skelton MD Work Phone: [employer] 04-27-2023 03:47-0500 Body mass index (BMI) [Ratio] 33.25 kg/m2 Nola Skelton MD Work Phone: [employer] 04-27-2023 03:47-0500 Body weight 105.1 kg Nola Skelton MD Work Phone: [employer] 04-22-2023 12:33-0500 Body height 177.8 cm Nola Skelton MD Work Phone: [employer] 03-17-2023 08:45-0500 Diastolic blood pressure 80 mm[Hg] Nola Zuniga [facility] 03-17-2023 08:45-0500 Heart rate 73 /min Nola Zuniga [facility] 03-17-2023 08:45-0500 Mean blood pressure 97 mm[Hg] Nola Zuniga [facility] 03-17-2023 08:45-0500 Systolic blood pressure 132 mm[Hg] Nola Zuniga [facility] 03-17-2023 08:45-0500 Heart rate 69 /min Nola Zuniga [facility] 03-17-2023 08:45-0500 SaO2% (BldA) [Mass fraction] 93 % Nola Zuniga [facility] 03-17-2023 08:45-0500 Diastolic blood pressure 71 mm[Hg] Nola Zuniga [facility] 03-17-2023 08:45-0500 Mean blood pressure 91 mm[Hg] Nola Zuniga [facility] 03-17-2023 08:45-0500 Systolic blood pressure 131 mm[Hg] Nola Zuniga [facility] 03-17-2023 08:44-0500 Respiratory rate 17 /min Nola Zuniga [facility] 05-04-2022 17:42-0500 Body height 170.18 cm Cassie Lorenz Other [employer] Other 04-16-2022 16:15-0500 Body height 170.18 cm Cassie Lorenz Other [employer] Other 04-16-2022 16:15-0500 Body mass index (BMI) [Ratio] 35.86 kg/m2 Cassie Lorenz Other [employer] Other 04-16-2022 16:15-0500 Body weight 103.87 kg Cassie Lorenz Other [employer] Other 04-16-2022 16:15-0500 Diastolic blood pressure 80 mm[Hg] Cassie Lorenz Other [employer] Other 04-16-2022 16:15-0500 SaO2% (BldA) [Mass fraction] 97 % Cassie Lorenz Other [employer] Other 04-16-2022 16:15-0500 Systolic blood pressure 138 mm[Hg] Cassie Lorenz Other [employer] Other Encounters Encounter Date Encounter Type Care Provider Facility Start: 05-03-2023 End: 05-03-2023 ambulatory Cassie Lorenz Other [employer] Other Start: 05-03-2023 Sbsq nursing facil care/day new problem 25 min Cassie Lorenz [facility] Start: 05-03-2023 Telephone encounter Cassie Lorenz [facility] Start: 04-30-2023 End: 04-30-2023 ambulatory Cassie Lorenz Other [employer] Other Start: 04-30-2023 Telephone encounter Cassie Lorenz [facility] Start: 04-21-2023 Evaluation and management of inpatient [facility] Start: 04-21-2023 Emergency department patient visit [facility] Start: 04-21-2023 End: 04-28-2023 [facility] Start: 04-21-2023 End: 04-28-2023 Evaluation and management of inpatient Nola Skelton MD Work Phone: [facility] Comment on above: Pulmonary embolism ( HCC) (Primary Dx); Acute saddle pulmonary embolism without acute cor pulmonale (HCC); Claudication of both lower extremities (HCC); Peripheral venous insufficiency; Seizure disorder (HCC) Start: 04-21-2023 End: 04-21-2023 ambulatory Cassie Lorenz Other [facility] Other Start: 04-21-2023 Telephone encounter Cassie Lorenz [facility] Start: 04-12-2023 End: 04-12-2023 ambulatory Cassie Lorenz Other [employer] Other Start: 04-12-2023 Initial nursing facility care/day 35 minutes Cassie Dye [facility] Start: 04-05-2023 End: 04-08-2023 Evaluation and management of inpatient Nola Zuniga Facility:[facility] Start: 03-19-2023 End: 03-19-2023 ambulatory Cassie Lorenz Other [employer] Other Start: 03-19-2023 Telephone encounter Cassie Lorenz [facility] Start: 03-17-2023 End: 03-17-2023 ambulatory LUCY MENENDEZ Not Available Start: 03-17-2023 End: 03-18-2023 ambulatory Nola Zuniga Facility:[facility] Start: 03-17-2023 End: 03-17-2023 Patient encounter procedure Nola Zuniga [facility] Start: 02-10-2023 End: 02-10-2023 ambulatory NOLA ZUNIGA Not Available Start: 07-21-2022 End: 07-22-[address] CASSIE LORENZ Facility: Start: 06-30-2022 End: 06-30-2022 ambulatory Cassie Lorenz Other [employer] Other Start: 06-30-2022 Telephone encounter Cassie Lorenz [facility] Start: 06-16-2022 End: 06-16-2022 ambulatory Cassie Lorenz Other [facility] Other Start: 06-16-2022 Telephone encounter Cassie Lorenz [facility] Start: 06-03-2022 End: 06-03-2022 ambulatory Cassie Lorenz Other [facility] Other Start: 06-03-2022 Telephone encounter Cassie Lorenz [facility] Start: 05-11-2022 End: 05-11-2022 ambulatory Cassie Lorenz Other [facility] Other Start: 05-11-2022 Telephone encounter Cassie Lorenz [facility] Start: 05-04-2022 End: 05-04-2022 ambulatory Cassie Lorenz Other [facility] Other Start: 05-04-2022 Telephone encounter Cassie Lorenz [facility] Start: 04-16-2022 End: 04-17-[address] CASSIE LORENZ [facility] Other Start: 04-16-2022 Office outpatient vi sit 15 minutes Cassie Lorenz [facility] Start: 04-06-2022 End: 04-06-2022 ambulatory Cassie Lorenz Other [employer] Other Start: 04-06-2022 Telephone encounter Cassie Lorenz [facility] Start: 03-20-2022 End: 03-20-2022 ambulatory Cassie Lorenz Other [employer] Other Start: 03-20-2022 Telephone encounter Cassie Lorenz [facility] Start: 03-19-[address] CASSIE LORENZ Facil ity:H1 Procedures Date Procedure Procedure Detail Performing Clinician Start: 04-28-2023 ANTI-XA, UNFRACTIONA LOBO HEPARIN Jere Kendrick MD Work Phone: Start: 04-28-2023 Basic metabolic pane l calcium total Jere Kendrick MD Work Phone: Start: 04-27-2023 ANTI-XA, UNFRACTIONA LOBO HEPARIN Nasser Y Ali MD Work Phone: Start: 04-27-2023 Non-invasive physiol ogic study extremity 3 levls Keyon Maki DO Work Phone: Start: 04-27-2023 ANTI-XA, UNFRACTIONA LOBO HEPARIN Ismael Reynolds MD Work Phone: Start: 04-27-2023 Comprehensive metabo lic panel Ismael Reynolds MD Work Phone: Start: 04-27-2023 ANTI-XA, UNFRACTIONA LOBO HEPARIN Ismael Reynolds MD Work Phone: Start: 04-27-2023 Basic metabolic pane l calcium total Renettaci Mireille ACUNA Work Phone: Start: 04-26-2023 ANTI-XA, UNFRACTIONA LOBO HEPARIN Ismael Reynolds MD Work Phone: Start: 04-26-2023 Urinalysis microscopic only Ismael Reynolds MD Work Phone: Start: 04-26-2023 Urnls dip stick/tabl et rgnt auto w/o microscopy Ismael Reynolds MD Work Phone: Start: 04-26-2023 Dup-scan lxtr art/ar tl bpgs uni/lmtd study Ismael Reynolds MD Work Phone: Start: 04-26-2023 ANTI-XA, UNFRACTIONA LOBO HEPARIN Ismael Reynolds MD Work Phone: Start: 04-26-2023 Blood count complete automated Ismael Reynolds MD Work Phone: Start: 04-26-2023 Natriuretic peptide Dino Reynolds MD Work Phone: Start: 04-26-2023 Radiologic exam ches t single view Ismael Reynolds MD Work Phone: Start: 04-26-2023 Assay of troponin quantitative Ismael Reynolds MD Work Phone: Start: 04-26-2023 Ecg routine ecg w/le ast 12 lds i&r only Ismael Reynolds MD Work Phone: Start: 04-26-2023 Basic metabolic pane l calcium total Jere Kendrick MD Work Phone: Start: 04-25-2023 Basic metabolic pane l calcium total Jere Kendrick MD Work Phone: Start: 04-24-2023 Prothrombin time Ismael Reynolds MD Work Phone: Start: 04-23-2023 Prothrombin time Ismael Reynolds MD Work Phone: Start: 04-23-2023 Basic metabolic pane l calcium total Jere Kendrick MD Work Phone: Start: 04-22-2023 Assay of troponin quantitative Jere Kendrick MD Work Phone: Start: 04-22-2023 ANTI-XA, UNFRACTIONA LOBO HEPARIN Abhinav Gonzales MD Work Phone: Start: 04-22-2023 Assay of troponin quantitative Jere Kendrick MD Work Phone: Start: 04-22-2023 Echo tthrc r-t 2d w/wom-mode compl spec&colr d Jere Kendrick MD Work Phone: Start: 04-22-2023 Dup-scan xtr veins c omplete bilateral study Jere Kendrick MD Work Phone: Start: 04-22-2023 ANTI-XA, UNFRACTIONA LOBO HEPARIN Jere Kendrick MD Work Phone: Start: 04-22-2023 Basic metabolic pane l calcium total Jere Kendrick MD Work Phone: Start: 04-22-2023 Ecg routine ecg w/le ast 12 lds i&r only Jere Kendrick MD Work Phone: Start: 04-22-2023 Assay of troponin quantitative Jere Kendrick MD Work Phone: Start: 04-21-2023 ANTI-XA, UNFRACTIONA LOBO HEPARIN Jere Kendrick MD Work Phone: Start: 04-21-2023 End: 04-21-2023 Prq transluminal mechanical thrombectomy vein Luisito Pinzon MD Work Phone: Start: 04-21-2023 CATH HEMO INTERFACE [facility] yusuf Pinzon MD Work Phone: Start: 04-21-2023 Iadna s aureus methi cillin resist amp probe tq Boyd Sharma MD Work Phone: Start: 04-21-2023 End: 04-21-2023 Thromboplastin time partial plasma/whole blood Tez Ranellone DO Work Phone: Start: 04-21-2023 RESPIRATORY CARE HARINDER LUATION ONLY Jere Kendrick MD Work Phone: Start: 04-21-2023 Ecg routine ecg w/le ast 12 lds i&r only Tez Ranellone DO Work Phone: Start: 04-21-2023 Assay of troponin quantitative Tez Ranellone DO Work Phone: Start: 04-21-2023 ANTI-XA, UNFRACTIONA LOBO HEPARIN Tez Ranellone DO Work Phone: Start: 04-21-2023 Comprehensive metabo lic panel Tez Ranellone DO Work Phone: Start: 04-21-2023 CATH HEMO INTERFACE [facility] ysuuf Pinzon MD Work Phone: Start: 04-21-2023 Ecg routine ecg w/le ast 12 lds i&r only Yosef Hull MD Work Phone: History of operative procedure on knee Cassie Lorenz Other History of tonsillectomy Yun Zuniga Plan of Treatment Date Care Activity Detail Author Start: 05-04-2023 End: 04-27-2024 Protime-INR Protime-INR Lab Routine Acute saddle pulmonary embolism without acute cor pulmonale (HCC) Expected: 05/04/2023, Expires: 04/27/2024 [facility] Comment on above: Expected: 05/04/2023 , Expires: 04/27/2024 Start: 04-21-2023 Annual Wellness Visi t (Medicare) Annual Wellness Visit (Medicare) [facility] [employer] Start: 10-20-2022 Influenza vaccination [facility] (# [facility] Start: 06-21-2013 Screening for malign ant neoplasm of breast Breast cancer screen [facility] [employer] Start: 06-21-2013 Shingles vaccine (1 of 2) Shingles v accine (1 of 2) [facility] Start: 06-21-2008 Screening for malign ant neoplasm of colon [facility] Start: 2003 Lipid panel Lipids [facility] Start: 06-21-1998 Diabetes screen Diabetes screen [facility] Start: 06-21-1993 Screening for malign ant neoplasm of cervix [facility] Start: 06-21-1984 Screening for malign ant neoplasm of cervix Pap smear [facility] Start: 06-21-1982 DTaP/Tdap/Td vaccine (1 - Tdap) DTaP/Tdap/Td vaccine (1 - Tdap) [facility] Start: 06-21-1981 Hepatitis C screening Hepatitis C sc reen [facility] Start: 06-21-1978 HIV screening HIV screen [id number] Start: 1975 Depression Screen Depression Screen [facility] Start: 1965 COVID-19 Vaccine (#1) COVID-19 Vacci ne (#1) [facility] Start: 1965 Hepatitis B vaccine (1 of 3 - 3-dose series) Hepatitis B vaccine (1 of 3 - 3-dose series) [facility] End: 04-29-2023 Anti-Xa, Unfractionated Heparin Anti-Xa, Unfractionated Heparin Lab Timed Now Then Every 6hr for 3 Days starting 04/26/2023 until 04/29/2023, 5 completed [employer] Comment on above: Now Then Every 6hr f or 3 Days starting 04/26/2023 until 04/29/2023, 5 completed End: 05-06-2023 Basic metabolic 2000 panel - Serum or Plasma Basic Metabolic Panel Lab Routine Daily for 15 Days starting 04/22/2023 until 05/06/2023, 6 completed [employer] Comment on above: Daily for [address] ar[address] 04/22/2023 until 05/06/2023, 6 completed End: 05-06-2023 CBC panel - Blood by Automated count CBC Lab Routine Every Other Day for 10 Days starting 04/28/2023 until 05/06/2023, 1 completed [employer] Comment on above: Every Other Day for 10 Days starting 04/28/2023 until 05/06/2023, 1 completed Chest physiotherapy Chest physio therapy Respiratory Care Routine Daily until discontinued starting 04/26/2023 [employer] Comment on above: Daily until disconti nued starting 04/26/2023 Continuous pulse oximetry Pulse oximetry, continuous Respiratory Care Routine Every 4hr until discontinued starting 04/26/2023 [employer] Comment on above: Every 4hr until disc ontinued starting 04/26/2023 Nasal Cannula Oxygen Nasal Cannu la Oxygen Respiratory Care Routine Daily until discontinued starting 04/21/2023 [employer] Comment on above: Daily until disconti nued starting 04/21/2023 Oxygen therapy [[facility] Data Set] Initiate Oxygen Therapy Protocol Respiratory Care Routine As Needed until discontinued starting 04/21/2023 [employer] Work Phone: Comment on above: As Needed until disc ontinued starting 04/21/2023 End: 05-23-2023 Protime-INR Protime-INR Lab Routine Daily for 30 Days starting 04/24/2023 until 05/23/2023, 4 completed [employer] Comment on above: Daily for [address] ar[address] 04/24/2023 until 05/23/2023, 4 completed End: 04-23-2023 SPECIMEN REJECTION [employer] Comment on above: Once for 1 Occurrenc es starting 04/23/2023 until 04/23/2023 Spirometry panel Incentive juanis metry RT Respiratory Care Routine Every 2hr while awake until discontinued starting 04/26/2023 [employer] Comment on above: Every 2hr while awak e until discontinued starting 04/26/2023 Immunizations Immunization Date Immunization Notes [facility] 01-01-2022 influenza virus vaccine, split virus (incl. purified surface antigen) Cassie Lorenz Other [employer] Other 01-28-2021 influenza virus vaccine, split virus (incl. purified surface antigen) Cassie Lorenz Other [employer] Other 12-07-2019 influenza virus vaccine, split virus (incl. purified surface antigen) Cassie Lorenz Other [employer] Other 04-09-2016 pneumococcal polysaccharide vaccine, 23 valent Cassie Lorenz Other [employer] Other Payers Date Payer Category Payer Unknown [id number] 2.16.84 [id number] 1965 Unknown [id number] 2.16.84 [id number] 1965 Unknown [id number] 2.16.84 [id number] 1965 Unknown [id number] 1965 Unknown [id number] [id number] 1965 Unknown [id number] 2.16. [id number] 1965 Unknown [id number] 2.16. [id number] 1965 Unknown [id number] 2.16.8 [id number] 1965 Unknown [id number] 2.16.8 [id number] 1961 Medicaid [id number] 2. [id number] 1961 Medicare [id number] 2.1 [id number] Social History Date Type Detail Facility Start: 04-21-2023 End: 04-24-2023 Sex Assigned At [facility] Tobacco smoking status No Smokin g Status Entered [facility] Start: 04-21-2023 Tobacco smoking stat us NHIS Never smoked tobacco [employer] Start: 04-21-2023 Tobacco use and exposure Smoke less tobacco non-user [employer] Start: 04-24-2023 Alcohol intake Ex-drinker (finding) [employer] Start: 04-21-2023 End: 04-24-2023 History of Social function [facility] [employer] Has the electric, Tang[place] s, oil, or water Care[employer] threatened to shut off services in your home in past 12Mo No [employer] (I/We) worried hermelindo gusman (my/our) food would run out before (I/we) got money to buy more. Never true [employer] In the past 12 month s, has lack of transportation kept you from medical appointments or from getting medications? Yes [employer] Start: 1965 Sex Assigned At Not on file B ON [employer] NEGATED: Highlighted rowStart: NINF History of tobacco use Passive smoker [facility] [employer] Functional Status Date Assessment Result Facility 03-17-2023 Functional Status No [facility] Clinical Notes 04-16-2022 to 05-03-2023 Note Date & Type Note Facility 05-03-2023 Evaluation note Encounter Date Diagnosis Assessment Notes Apr, Acute saddle pulmonary embolism without acute cor pulmonale (ICD-10 - I26.92) INR 2.9 today. Continue warfarin 5mg daily - recheck INR on 05/06 or 05/07Apr, Acute deep vein thrombosis (DVT) of proximal vein of both lower extremities (ICD-10 - I82.4Y3) as above Added furosemide 20mg daily x 7 days for edema Apr, Status post right knee replacement (ICD-10 - Z96.651) Incision well healed. Apr, Seizure disorder (ICD-10 - G40.909) Changed rx per recommendation of [facility] team. Rx sent last week to [facility] Other 02-07-2024 History of Present illness Narrative* León Whitlock RPH - 04/28/2023 9:40 AM EST Pharmacy Note Warfarin Consult follow-up Recent Labs 04/28/23 0641 INR 2.7 Recent Labs 04/26/23 0553 04/26/23 1824 04/28/23 0641 HGB 10.0* 10.3* 9.5* HCT 31.3* 34.0* 30.1* PLT 321 328 340 Significant Drug-Drug Interactions: New warfarin drug-drug interactions: none Discontinued drug-drug interactions: none Notes: Warfarin 7.5 mg Daily PT/INR while inpatient. León Whitlock PharmD, BCPS 04/28/2023 9:40 AM * Nadia Mcdonald MD - 04/27/2023 9:09 PM EST Images from the original note were not included. Today's Date: 04/25/2023 Patient Name: Elizabeth Sánchez Date of admission: 04/21/2023 2:29 PM Patient's age: 57 y.o., 1965 Admission Dx: Pulmonary embolism (HCC) [I26.99] Acute saddle pulmonary embolism without acute cor pulmonale (HCC) [I26.92] Reason for Consult: management recommendations Requesting Physician: Abhinav Gonzales MD CHIEF COMPLAINT: Acute pulmonary embolism SUBJECTIVE: . Patient was seen and examined. She is clinically stable. No chest pain. No hemoptysis. No shortness of breath. No leg pain or swelling. Started on Coumadin. INR today is 1.9.. BRIEF CASE HISTORY: The patient is a 57 y.o. female who is admitted to the hospital for acute pulmonary embolism. She underwent right knee replacement 2 weeks prior and she was in the rehab. She presented with dizzinessand lightheadedness. She was transferred to emergency room with chest pressure. She was found to have acute pulmonary embolism with right heart strain. Vascular were consulted and she underwent mechanical thrombectomy. After that, she was started on anticoagulation with heparin The patient has history of cognitive difficulty. Seizure disorder Past Medical History: has a past medical history of Mental developmental delay, Osteoarthritis, Seasonal allergies, and Seizure disorder (HCC). Past Surgical History: has a past surgical history that includes vascular surgery (N/A, 04/21/2023)and Total knee arthroplasty (Right). Medications: Reviewed in [facility] including carbamazepine Allergies: Dilantin [phenytoin] Social History: reports that she has never smoked. She has never been exposed to tobacco smoke. Shehas never used smokeless tobacco. She reports that she does not currently use alcohol. She reports that she does not use drugs. Family History: family history includes Cancer in her mother; Diabetes in her father; Heart Failurein her father; Other in her brother and mother; Stroke in her mother. REVIEW OF SYSTEMS: Constitutional: No fever or chills. No night sweats, no weight loss Eyes: No eye discharge, double vision, or eye pain HEENT: negative for sore mouth, sore throat, hoarseness and voice change Respiratory: Chest pressure and shortness of breath improved significantly Cardiovascular: negative for chest pain, dyspnea, palpitations, orthopnea, PND Gastrointestinal: negative for nausea, vomiting, diarrhea, constipation, abdominal pain, Dysphagia,hematemesis and hematochezia Genitourinary: negative for frequency, dysuria, nocturia, urinary incontinence, and hematuria Integument: negative for rash, skin lesions, bruises. Hematologic/Lymphatic: negative for easy bruising, bleeding, lymphadenopathy, or petechiae Endocrine: negative for heat or cold intolerance,weight changes, change in bowel habits and hair loss Musculoskeletal: negative for myalgias, arthralgias, pain, joint swelling,and bone pain Neurological: negative for headaches, she states that she does not feel dizzy. She has a previous history of seizure disorder but nothing recently acute pulmonary embolism, provoked postoperative PHYSICAL EXAM: BP 116/75 Pulse 86 Temp 97.7 F (36.5 C) (Oral) Resp 18 Ht 1.778 m (5' 10 ) Wt 107.1 kg (236 lb 2 oz) SpO2 95% BMI 33.88 kg/m Temp (24hrs), Av F (36.7 C), Min:97.7 F (36.5 C), Max:98.2 F (36.8 C) General appearance - well appearing, no in pain or distress Mental status - alert and cooperative Eyes - pupils equal and reactive, extraocular eye movements intact Ears - bilateral TM's and external ear canals normal Mouth - mucous membranes moist, pharynx normal without lesions Neck - supple, no significant adenopathy Lymphatics - no palpable lymphadenopathy, no hepatosplenomegaly Chest - clear to auscultation, no wheezes, rales or rhonchi, symmetric air entry Heart - normal rate, regular rhythm, normal S1, S2, no murmurs Abdomen - soft, nontender, nondistended, no masses or organomegaly Neurological - alert, oriented, normal speech, no focal findings or movement disorder noted Musculoskeletal - no joint tenderness, deformity or swelling Extremities - peripheral pulses normal, no pedal edema, no clubbing or cyanosis Skin - normal coloration and turgor, no rashes, no suspicious skin lesions noted , DATA: Labs: CBC: Recent Labs 04/24/23 0710 04/25/23 0741 WBC 4.2 6.3 HGB 9.3* 9.8* HCT 29.7* 32.7* PLT 350 343 BMP: Recent Labs 04/24/23 0710 04/25/23 0741 NA 138 137 K 4.2 4.0 CO2 24 23 BUN 10 13 CREATININE 0.5 0.5 LABGLOM >60 >60 GLUCOSE 116* 119* PT/INR: Recent Labs 04/24/23 0710 04/25/23 0741 PROTIME 14.1 18.4* INR 1.1 1.6 IMAGING DATA: Primary Problem Acute saddle pulmonary embolism without acute cor pulmonale (HCC) Active Hospital Problems Diagnosis Date Noted Acute deep vein thrombosis (DVT) (HCC) [I82.409] 04/22/2023 Obesity (BMI 30.0-34.9) [E66.9] 04/22/2023 Acute hypoxic respiratory failure (HCC) [J96.01] 04/22/2023 Seizure disorder (HCC) [G40.909] 04/22/2023 Syncope [R55] 04/22/2023 Acute saddle pulmonary embolism without acute cor pulmonale (HCC) [I26.92] 04/21/2023 IMPRESSION: Acute DVT/pulmonary embolism, provoked after knee surgery Recent knee surgery History of seizure disorder Status post mechanical thrombectomy RECOMMENDATIONS: Status post mechanical thrombectomy Agree with anticoagulation, she is currently on heparin Because of vascular disorder on carbamazepine, there is a drug interaction with oral anticoagulantsincluding Van Jorge on warfarin. However, the warfarin can be monitored through INR so it might be the safest option. Another option is to change the carbamazepine to a different seizure medication and that we will open the door for DOAC Started on warfarin. Monitor INR. Target INR 2-3. We will follow with you. Duration of anticoagulation is likely 6 months since this is a provoked thrombus. However, we will finalize decision depending on her status at 6-month No need for hypercoagulable workup right now. We will determine the need as an outpatient Nadia Lund MD [facility] This note is created with the assistance of a speech recognition program. While intending to generate a document that actually reflects the content of the visit, the document can still have some errors including those of syntax and sound a like substitutions which may escape proof reading. It such instances, actual meaning can be extrapolated by contextual diversion. * Keri Teixeira - 04/27/2023 3:07 PM EST Occupational Therapy Facility/Department: [facility] RENAL//MED SURG Occupational Therapy Treatment Session Name: Elizabeth Sánchez : 1965 Date of Service: 04/27/2023 Copied from Emergency Department: I performed a history and physical examination of the patient and discussed management with the resident. I reviewed the resident s note and agree with the documented findings and plan of care. Any areas of disagreement are noted on the chart. I was personally present for the mario portions of any procedures. I have documented in the chart those procedures where I was not present during the mario portions. I have reviewed the emergency nurses triage note. I agree with the chief complaint, past medical history, past surgical history, allergies, medications, social and family history as documented unless otherwise noted below. For Physician Custom Wood Stair Builder/ Nurse Practitioner cases/documentation I have personally evaluated this patient and have completed at least one if not all mario elements of the E/M (history, physical exam, and MDM). Additional findings are as noted. Discharge Recommendations: Patient would benefit from continued therapy after discharge Patient Diagnosis(es): The primary encounter diagnosis was Pulmonary embolism (HCC). Diagnoses of Acute saddle pulmonary embolism without acute cor pulmonale (HCC), Claudication of both lower extremities (HCC), and Peripheral venous insufficiency were also pertinent to this visit. Past Medical History: has a past medical history of Mental developmental delay, Osteoarthritis, Seasonal allergies, and Seizure disorder (HCC). Past Surgical History: has a past surgical history that includes vascular surgery (N/A, 04/21/2023)and Total knee arthroplasty (Right). Treatment Diagnosis: Acute saddle pulmonary embolism without acute cor pulmonale (HCC) Treatment Pt in chair upon entering/exit session. Pt completed UB dressing with hospital gown with Mod I and setup assistance. Pt performed functional mobility and transfer with CGA and RW. Pt completed ADLs seated in recliner. While bending forward pt O2 dropped to 85%, pt educated on pursed lip breathing and O2 returned to 95% ~3 min. Pt performed functional mobility with 3 steps forward/retrograde to simulate household distances. Pt returned to chair with call light within reach and RN notified. Continued OT services are needed to address deficits in balance, endurance, and cognition to improve safety and functional IND in functional mobility/transfers, ADLs and IADLs. Performance deficits / Impairments: Decreased functional mobility ;Decreased endurance;Decreased ADL status;Decreased balance;Decreased high-level IADLs;Decreased cognition Treatment Diagnosis: Acute saddle pulmonary embolism without acute cor pulmonale (HCC) Prognosis: Good Decision Making: Medium Complexity REQUIRES OT FOLLOW-UP: Yes Activity Tolerance Activity Tolerance: Patient limited by fatigue Plan Occupational Therapy Plan Times Per Week: 3-4x Restrictions Restrictions/Precautions Restrictions/Precautions: Fall Risk, Up as Tolerated Required Braces or Orthoses?: No Position Activity Restriction Other position/activity restrictions: Up with assist, recent TKA, acute PE with bilateral DVT's Subjective General Patient assessed for rehabilitation services?: Yes Family / Caregiver Present: No Diagnosis: Acute PE/DVT, 04/21 thrmobectomy, recent R TKA, hx of seizures Subjective General Comment Comments: RN cleared pt for OT this date. Pt agreed to session and was pleasent/cooperative throughout. Pt denied pain. Social/Functional History Social/Functional History Lives With: Alone Type of Home: House Home Layout: One level Home Access: Level entry Bathroom Shower/Tub: Walk-in shower Bathroom Toilet: Standard Bathroom Equipment: Grab bars in shower Bathroom Accessibility: Accessible Home Equipment: Walker, rolling, Wheelchair-manual (using RW at [facility] since L TKA) Has the patient had two or more falls in the past year or any fall with injury in the past year?: No Receives Help From: Family ADL Assistance: Independent Homemaking Assistance: Independent Homemaking Responsibilities: Yes Meal Prep Responsibility: Primary Laundry Responsibility: Primary Cleaning Responsibility: Primary Bill Paying/Finance Responsibility: Primary Shopping Responsibility: Primary Dependent Care Responsibility: Primary Health Care Management: Primary Other (Comment): sister in law assist with groceries Ambulation Assistance: Independent Transfer Assistance: Independent Active County Auditor: No Patient's County Auditor Info: sister in law Mode of Transportation: Car 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 Pt used support of recliner for rest breaks. While bending forward pt O2 dropped to 85%, pt educated on pursed lip breathing and O2 returned to 95% ~3 min) Standing: With support (Pt stood with RW and CGA for static/dynamic standing for ~5 min near chair.) Transfer Training Transfer Training: Yes (Pt performed functional transfer at EOB with RW and CGA. Pt had good safetyawareness of hand placement throughout) Overall Level of Assistance: Contact-guard assistance;Adaptive equipment Sit to Stand: Contact-guard assistance;Adaptive equipment Stand to Sit: Contact-guard assistance;Adaptive equipment Gait Gait Training: Yes (Pt took 3 steps forward/retrograde slowly with CGA. Pt reported needing to sit and returned to chair with education on pursed lip breathing) Overall Level of Assistance: Contact-guard assistance Assistive Device: Gait belt;Walker, rolling ADL Grooming: Modified independent ;Setup Grooming Skilled Clinical Factors: Pt completed face hygiene and brushed hair with Mod I while seated in chair UE Dressing: Modified independent ;Setup UE Dressing Skilled Clinical Factors: Pt completed UE dressing with Mod I for setup assistance of donning/doffing hospital gown. Pt able to thread BUE through gown. Activity Tolerance Activity Tolerance: Patient tolerated treatment well Cognition Overall Cognitive Status: Exceptions Following Commands: Follows one step commands with increased time Attention Span: Attends with cues to redirect Safety Judgement: Decreased awareness of need for assistance;Decreased awareness of need for safety Problem Solving: Assistance required to correct errors made;Assistance required to generate solutions Insights: Decreased awareness of deficits Initiation: Requires cues for some Sequencing: Requires cues for some Orientation Overall Orientation Status: Impaired Orientation Level: Oriented to place;Oriented to situation;Oriented to person;Disoriented to time Education Given To: Patient Education Provided: Role of Therapy;Plan of Care;Energy Conservation;Transfer Training Education Provided Comments: Pt educated on role of therapy, plan of care, energy conservation on pursed lip breathing throughout ADLs, functional mobility/transfers with fair return Education Method: Verbal Barriers to Learning: Cognition Education Outcome: Verbalized understanding;Continued education needed AM-PAC - ADL [facility] Daily Activity - Inpatient How much help is needed for putting on and taking off regular lower body clothing?: A Little How much help is needed for bathing (which includes washing, rinsing, drying)?: A Little How much help is needed for toileting (which includes using toilet, bedpan, or urinal)?: A Little How much help is needed for putting on and taking off regular upper body clothing?: None How much help is needed for taking care of personal grooming?: None How much help for eating meals?: None AM-[facility] Inpatient Daily Activity Raw Score: 21 AM-[facility] Inpatient ADL T-Scale Score : 44.27 ADL Inpatient CMS 0-100% Score: 32.79 ADL Inpatient [facility] G-Code Modifier : CJ Goals Short Term Goals Time Frame for Short Term Goals: Pt will by d/c Short Term Goal 1: demo good safety awareness during func mob around room using LRD PRN at mod I Short Term Goal 2: demo ADL UB bathing/dressing activity at (I) Short Term Goal 3: demo ADL LB bathing/dressing activity at Mod I, while sitting/standing as activity requires Short Term Goal 4: demo all bed mobility, including rolling, using bedrails PRN at mod I Short Term Goal 5: demo standing during func activity for 10 min+ using LRD PRN, no seated rest breaks, and mod I Therapy Time Individual Concurrent Group Co-treatment Time In 141 Time Out 1441 Minutes 29 Timed Code Treatment Minutes: 25 Minutes SHERRIE Campbell * Keyon Maki DO - 04/27/2023 2:37 PM EST Images from the original note were not included. Division of Vascular Surgery Progress Note Name: Elizabeth Sánchez Overnight Events: none Subjective: Patient seen and examined this morning, no acute event overnight. Vascular is we consulted due to concern of unable to find the right lower extremity pulse and signal. However, her PT and DP pulses were strongly palpable, and I was able to confirm with Doppler signal bilaterally. There is only leftPVR study was done, and the right side was not done for some reason. Intact motor and sensory functi on. On Eliquis. Physical Exam: Vitals: BP 126/67 Pulse 90 Temp 97.7 F (36.5 C) (Oral) Resp 18 Ht 1.778 m (5' 10 ) Wt 105.1 kg (231 lb 11.3 oz) SpO2 97% BMI 33.25 kg/m General appearance - alert, well appearing and in no acute distress Mental status - oriented to person, place and time with normal affect Head - normocephalic and atraumatic Neck - supple, no carotid bruits, thyroid not palpable, no JVD Chest - clear to auscultation, normal effort Heart - normal rate, regular rhythm, no murmurs Abdomen - soft, non-tender, non-distended, bowel sounds present all four quadrants, no masses Neurological - normal speech, no focal findings or movement disorder noted, cranial nerves II through XII grossly intact Extremities - peripheral pulses palpable, no pedal edema or calf pain with palpation Skin - no gross lesions, rashes, or induration noted Vascular Exam -bilateral lower extremity warm to touch, motor and sensory function intact. Was ableto palpate PT and DP pulse bilateral, that PT is little bit more difficult due to edematous. But I was able to confirm with Doppler for bilateral PT and DP signal. Data: CBC: Recent Labs 04/25/23 [id number] WBC 6.3 7.9 8.9 HGB 9.8* 10.0* 10.3* PLT 343 321 328 Chemistry: Recent Labs 04/26/23 0553 04/26/23 0941 04/26/23 1625 04/27/23 0641 04/27/23 1258 NA 137 -- -- 138 140 K 4.2 -- -- 4.4 3.9 CL 101 -- -- 103 105 CO2 26 -- -- 25 26 GLUCOSE 131* -- -- 132* 115* BUN 10 -- -- 12 12 CREATININE 0.5 -- -- 0.5 0.7 ANIONGAP 10 -- -- 10 9 LABGLOM >60 -- -- >60 >60 CALCIUM 8.7 -- -- 9.0 9.0 PROBNP -- -- 6,197* -- -- TROPHS -- 64* -- -- -- Hepatic: Recent Labs 04/27/23 1258 AST 19 ALT 19 ALKPHOS 108* BILITOT 0.2* Coagulation: Recent Labs 04/25/23 0704/26/2353 04/26/23182304/27/2364004/27/23 1258 APTT -- -- 43.5* -- -- PROT -- -- -- -- 6.4 INR 1.6 1.9 -- 2.4 -- Radiology Review: XR CHEST PORTABLE Result Date: 04/26/2023 Left basilar atelectasis/scarring. No significant pleural effusion or evidence of pulmonary edema. Assessment: 57 years old initially came in for bilateral PE, DVT, has had to be on Eliquis for DVT. Vascular surgery was reconsulted for difficulty of finding pulses right lower extremity Plan: No acute surgical intervention is indicated at this point We will obtain PVR study for right lower extremity to complete the workup I was able to palpate an obtain Doppler for PT and DP bilateral. Intact motor or sensory function. No concern at this point. Vascular surgery will sign off [facility] [place] Associated attestation - Ilia Christy MD - 04/27/2023 5:37 PM EST ATTENDING ATTESTATION: I personally examined Elizabeth Hull [place] today and confirmed the pertinent history,exam and medical decision making in the resident's note. Please note there may be additional comments below. Additional Comments: Called back to evaluate the feet for lower extremity arterial ischemia. There was concern pulses could not be felt. We ordered ESTEBAN study, which I reviewed myself. ABIs R 1.30 andL 1.24, waveforms are present. Motor/sensation intact. No vascular intervention required. Continue follow up plan with Dr. Pinzon. * Sourav Mak [facility] - 04/27/2023 11:54 AM EST Pharmacy Note Warfarin Consult follow-up Recent Labs 04/27/23 0641 INR 2.4 Recent Labs 04/25/23 0741 04/26/23 0553 04/26/23 1824 HGB 9.8* 10.0* 10.3* HCT 32.7* 31.3* 34.0* PLT 343 321 328 Significant Drug-Drug Interactions: New warfarin drug-drug interactions: none Discontinued drug-drug interactions: none Give warfarin 7.5mg Notes: Daily PT/INR while inpatient. -Sourav Mak PharmD, BCPS 04/27/2023 11:54 AM * Radha Talavera, PT - 04/27/2023 11:06 AM EST Physical Therapy Facility/Department: [facility] RENAL//MED SURG Physical Therapy Daily Treatment Note Name: Elizabeth Sánchez : 1965 Date of Service: 04/27/2023 Discharge Recommendations: Patient would benefit from continued therapy after discharge PT Equipment Recommendations Equipment Needed: No Patient Diagnosis(es): The primary encounter diagnosis was Pulmonary embolism (HCC). Diagnoses of Acute saddle pulmonary embolism without acute cor pulmonale (HCC) and Claudication of both lower extremities (HCC) were also pertinent to this visit. Past Medical History: has a past medical history of Mental developmental delay, Osteoarthritis, Seasonal allergies, and Seizure disorder (HCC). Past Surgical History: has a past surgical history that includes vascular surgery (N/A, 04/21/2023)and Total knee arthroplasty (Right). Assessment Body Structures, Functions, Activity Limitations Requiring Skilled Therapeutic Intervention: Decreased functional mobility ;Decreased tolerance to work activity;Decreased strength;Decreased endurance;Decreased balance;Increased pain Assessment: Pt ambulated 10ft w/ RW CGA, pt with endurance deficits with functional mobility limiting ambulation distance. Pt is expected to continue skilled physical therapy to address current endurance deficits, continue to progress gait and LE strengthening to return pt to prior level of independence. Therapy Prognosis: Good Decision Making: Medium Complexity Requires PT Follow-Up: Yes Activity Tolerance Activity Tolerance: Patient tolerated treatment well Plan Physical Therapy Plan General Plan: (5-6x /wk) Current Treatment Recommendations: Strengthening, Balance training, Functional mobility training, Transfer training, Endurance training, Gait training, Stair training, Neuromuscular re-education, Therapeutic activities, Safety education & training, Equipment evaluation, education, & procurement Safety Devices Type of Devices: All fall risk precautions in place, Gait belt, Nurse notified, Left in chair, Calllight within reach Restraints Restraints Initially in Place: No Restrictions Restrictions/Precautions Restrictions/Precautions: Fall Risk, General Precautions, Up as Tolerated Required Braces or Orthoses?: No Position Activity Restriction Other position/activity restrictions: Up with assist, recent TKA, acute PE with bilateral DVT's Subjective General Patient assessed for rehabilitation services?: Yes Response To Previous Treatment: Patient with no complaints from previous session. Family / Caregiver Present: No Follows Commands: Within Functional Limits General Comment Comments: Pt denying pain at time of session. Subjective Subjective: RN and pt in agreement for PT treatment. Pt supine in bed upon PT arrival, pt pleasant and cooperative throughout session. Pt on 4L NC. Cognition Orientation Overall Orientation Status: Within Functional Limits Cognition Overall Cognitive Status: Exceptions Initiation: Requires cues for some Sequencing: Requires cues for some Objective Gross Assessment Sensation: Intact Bed mobility Supine to Sit: Stand by assistance Sit to Supine: (Did not formally assess- pt seated in bedside chair upon automatic typewriter inspector's exit) Transfers Sit to Stand: Contact guard assistance Stand to Sit: Contact guard assistance Comment: Verbal cueing required for proper hand placement with good return demo. Increased time required to complete due to endurance deficits Ambulation Surface: Level tile Device: Rolling Walker Other Apparatus: O2 (4L) Assistance: Contact guard assistance Gait Deviations: Slow Kathleen;Decreased step length;Decreased step height Distance: 10ft to bedside chair Comments: SpO2 88% following ambulation to bedside chair. RN notified and pt returning to 94% following seated rest break for ~1 minute. More Ambulation?: No Stairs/Curb Stairs?: No Balance Posture: Good Sitting - Static: Good Sitting - Dynamic: Good Standing - Static: Good;- Standing - Dynamic: Fair;+ Comments: standing balance assessed with RW; pt able to sit EOB SBA Total Knee Arthroplasty Exercise Program: Quad sets, glut sets, hamstring sets, hip abduction/adduction, ankle pumps, supine and seated heel slides, short arc quads, LAQs. Reps: x10 [facility] - Mobility AM-[facility] Basic Mobility - Inpatient How much help is needed turning from your back to your side while in a flat bed without using bedrails?: None How much help is needed moving from lying on your back to sitting on the side of a flat bed withoutusing bedrails?: None How much help is needed moving to and from a bed to a chair?: None How much help is needed standing up from a chair using your arms?: A Little How much help is needed walking in hospital room?: A Little How much help is needed climbing 3-5 steps with a railing?: A Lot [facility] Inpatient Mobility Raw Score : 20 [facility] Inpatient T-Scale Score : 47.67 Mobility Inpatient CMS 0-100% Score: 35.83 Mobility Inpatient CMS G-Code Modifier : CJ Goals Short Term Goals Time Frame for Short Term Goals: 14 visits Short Term Goal 1: Pt to ambulate 200 ft mod I with least RW Short Term Goal 2: Pt to transfer from alternate surface heights with Mod I demonstrating safety with AD Short Term Goal 3: Pt to ascend/descend 4 steps with Mod I and rigth railing Short Term Goal 4: Pt to be provided verbal, written and practical instruction in bilateral LE ROM exercises to improve general strength and prevent functional decline in mobilty Patient Goals Patient Goals : To return home Education Patient Education Education Given To: Patient Education Provided: Role of Therapy;Plan of Care;Precautions;Family Education;Fall Prevention Strategies;Transfer Training Education Method: Verbal;Demonstration Barriers to Learning: None Education Outcome: Verbalized understanding Therapy Time Individual Concurrent Group Co-treatment Time In 1012 Time Out 1046 Minutes 34 Timed Code Treatment Minutes: 25 Minutes Radha Talavera PT * Katy Pardo - 04/27/2023 10:28 AM EST [employer] New Medication Counseling Note Medication counseling provided to Elizabeth Sánchez New medications reviewed: Warfarin Discussed recently initiated medication therapy with patient utilizing teachback method. Reviewed uses and possible side effects of medication and answered all medication-related questions. Counseledon signs and symptoms of bleeding, maintaining a constant diet with respect to vitamin K rich foods, and keeping an up to date medication list. Patient verbalized understanding. Katy Pardo Fuel Agent * Ismael Reynolds MD - 04/27/2023 10:20 AM EST Images from the original note were not included. [facility] Office: [phone] Reggie Barrera DO, Darin Forman DO, Werner Parra DO, Ramses Fish DO, Wanda Montgomery MD, Rosa Elena Schwartz MD, Vani Hsu MD, Katie Stallings MD, Narinder Maki MD, Katerina Christy MD, Jorge A Seaman MD, Rayo Escobedo DO, Trav Burnett MD, Tevin Castillo MD, Nola Barrera DO, Demetria Elmore MD, Vinay Juarez DO, Kamilah Finney MD, Kinsey Gonzales MD, Candis Carrera MD, Ivelisse De Luna MD, Trent Cooley MD, Trung Cr MD, Kt Brown MD, Antony Rodriguez MD, Yon Guerrero MD, Elizabeth Younger MD, Kyle Rodriguez DO, Je Munguia DO, Nathalia Brooke MD, Isaak Padilla MD, Lissette Rodriguez, BEAM SAW OPERATOR, Elizabeth Bryant, BEAM SAW OPERATOR, Tino Lr, BEAM SAW OPERATOR, Leticia Zuniga, RUDDY,Kim Hammer, BEAM SAW OPERATOR, Rebekah Vásquez, BEAM SAW OPERATOR, Steph Ly BEAM SAW OPERATOR, Maryanne Oh, BEAM SAW OPERATOR, Laly Navarro, BEAM SAW OPERATOR, Jennifer Souza, PA-C, Desi Gnan, PA-C, Nidia Montgomery, BEAM SAW OPERATOR, Palmira Gonzales, BIOINFORMATICS SCIENTIST, Valery Gary, BEAM SAW OPERATOR, Margoth Ackerman BEAM SAW OPERATOR, Ricarda Shelby, BEAM SAW OPERATOR [facility] IN-PATIENT SERVICE [facility] Progress Note 04/27/2023 10:20 AM Name: Elizabeth Sánchez Acct: [id number] Room: [address] [place] [address]-[facility] Day: 6 Admit Date: 04/21/2023 2:29 PM PCP: No primary care provider on file. Code Status: Full Code Subjective: C/C: Chief Complaint Patient presents with Shortness of Breath Loss of Consciousness Interval History Status: improved. Patient reports feeling much better. 02 needs down. INR now at goal, heparin off. Vascular reconsulted as pvr testing showing absence of distal pulse Peroneal Artery: Absent Doppler waveforms. Incidental finding of partially compressible proximal femoral vein and non compressible mid to distal femoral, popliteal, tibioperoneal trunk, peroneal and posterior tibial veins with absent spectralDoppler signals. Vascular rechecked and able to get pulses. Patient o2 needs improved, lasix helped. INR at goal. Plan to be DC to facility Brief History: 57 y.o. with presented as transfer from [facility] to er with 2d of sob, syncope.S he underwent right knee replacement 2 weeks prior and she was in the rehab. She has underlying cognitive difficulty, Seizure disorder, lyphemedma, osteoarbthitis , questionable 2L intermittently at home., female who is admitted to the hospital for acute pulmonary embolism with strain seen on outside CT scan transferred for vascular services. S. She presented with dizziness and lightheadedness. She was transferred toemergency room with chest pressure. she underwent mechanical thrombectomy. After that, she was started on anticoagulation with heparin and bridged to coumadin. Further work up revealed blt DVTs. She has had ongoing leg edema. Overall improving, plan is to be dc to facility. Neuro consulted about seizure medication. Oncology guiding anticoagulation and hematological concerns. Review of Systems: Constitutional: negative for chills, fevers, sweats Respiratory: negative for cough, dyspnea on exertion, shortness of breath, wheezing Cardiovascular: negative for chest pain, chest pressure/discomfort, lower extremity edema, palpitations Gastrointestinal: negative for abdominal pain, constipation, diarrhea, nausea, vomiting Neurological: negative for dizziness, headache Medications: Allergies: Allergies Allergen Reactions Dilantin [Phenytoin] Current Meds: Scheduled Meds: pantoprazole 40 mg Oral QAM AC ammonium lactate Topical Daily cefTRIAXone (ROCEPHIN) IV 1,000 mg IntraVENous Q24H warfarin placeholder: dosing by pharmacy Other RX Placeholder [Held by provider] carBAMazepine 200 mg Oral TID docusate sodium 100 mg Oral BID cetirizine 10 mg Oral Daily sertraline 25 mg Oral Daily guaiFENesin 1,200 mg Oral BID montelukast 10 mg Oral Nightly sodium chloride flush 5-40 mL IntraVENous 2 times per day Continuous Infusions: [Held by provider] heparin (PORCINE) Infusion 15 Units/kg/hr (04/27/23 0630) sodium chloride PRN Meds: ipratropium 0.5 mg-albuterol 2.5 mg, heparin (porcine), heparin (porcine), sodium chloride flush, sodium chloride, potassium chloride OR potassium chloride, magnesium sulfate, ondansetron OR ondansetron, polyethylene glycol, acetaminophen OR acetaminophen Data: Past Medical History: has a past medical history of Mental developmental delay, Osteoarthritis, Seasonal allergies, and Seizure disorder (HCC). Social History: reports that she has never smoked. She has never been exposed to tobacco smoke. Shehas never used smokeless tobacco. She reports that she does not currently use alcohol. She reports that she does not use drugs. Family History: Family History Problem Relation Age of Onset Cancer Mother Stroke Mother Other Mother Heart Failure Father Diabetes Father Other Brother Vitals: BP 133/69 Pulse 82 Temp 98.1 F (36.7 C) (Oral) Resp 20 Ht 1.778 m (5' 10 ) Wt 105.1 kg (231 lb 11.3 oz) SpO2 98% BMI 33.25 kg/m Temp (24hrs), Av.6 F (37 C), Min:98.1 F (36.7 C), Max:99.1 F (37.3 C) No results for input(s): POCGLU in the last 72 hours. I/O (24Hr): Intake/Output Summary (Last 24 hours) at 04/27/2023 1020 Last data filed at 04/27/2023 0630 Gross per 24 hour Intake 1772.88 ml Output 1100 ml Net 672.88 ml Labs: Hematology: Recent Labs 04/25/23 0741 04/26/23 0553 04/26/23 1625 04/26/23 1824 04/27/23 0641 WBC 6.3 7.9 -- 8.9 -- RBC 3.27* 3.28* -- 3.43* -- HGB 9.8* 10.0* -- 10.3* -- HCT 32.7* 31.3* -- 34.0* -- MCV 100.0 95.4 -- 99.1 -- MCH 30.0 30.5 -- 30.0 -- MCHC 30.0 31.9 -- 30.3 -- RDW 13.7 13.7 -- 13.8 -- PLT 343 321 -- 328 -- MPV 9.2 9.2 -- 9.3 -- INR 1.6 1.9 -- -- 2.4 DDIMER -- -- >20.00* -- -- Chemistry: Recent Labs 04/25/23 0741 04/26/23 0553 04/26/23 0941 04/26/23 1625 04/27/23 0641 NA 137 137 -- -- 138 K 4.0 4.2 -- -- 4.4 CL 103 101 -- -- 103 CO2 23 26 -- -- 25 GLUCOSE 119* 131* -- -- 132* BUN 13 10 -- -- 12 CREATININE 0.5 0.5 -- -- 0.5 ANIONGAP 11 10 -- -- 10 LABGLOM >60 >60 -- -- >60 CALCIUM 8.6 8.7 -- -- 9.0 PROBNP -- -- -- 6,197* -- TROPHS -- -- 64* -- -- No results for input(s): PROT , LABALBU , LABA1C , H1GKZSG , E6XSBEB , FT4 , TSH , AST , ALT , LDH , GGT , ALKPHOS , LABGGT , BILITOT , BILIDIR , AMMONIA , AMYLASE , LIPASE , LACTATE , CHOL , HDL , LDLCHOLESTEROL , CHOLHDLRATIO , TRIG , VLDL , [id number] , PHENYTOIN , PHENYF , URICACID , POCGLU in the last 72 hours. ABG:No results found for: POCPH , PHART , PH , POCPCO2 , VDZ3YIL , PCO2 , POCPO2 , PO2ART , PO2 , POCHCO3 , EQL8EUD , HCO3 , NBEA , PBEA , BEART , BE , THGBART , THB , FTM6VXE , NRYC0YWA , U6WWCLEV , O2SAT , FIO2 No results found for: SPECIAL No results found for: CULTURE Radiology: XR CHEST PORTABLE Result Date: 04/26/2023 Left basilar atelectasis/scarring. No significant pleural effusion or evidence of pulmonary edema. Physical Examination: General appearance: alert, cooperative and no distress Mental Status: oriented to person, place and time and normal affect Lungs: clear to auscultation bilaterally, normal effort Heart: regular rate and rhythm, no murmur Abdomen: soft, nontender, nondistended, normal bowel sounds, no masses, hepatomegaly, splenomegaly Extremities: no edema, redness, tenderness in the calves Skin: no gross lesions, rashes, induration Assessment: Hospital Problems Last Modified POA * (Principal) Acute saddle pulmonary embolism without acute cor pulmonale (HCC) 04/26/2023 Yes Acute deep vein thrombosis (DVT) (HCC) 04/26/2023 Yes Acute hypoxic respiratory failure (HCC) 04/22/2023 Yes Seizure disorder (HCC) 04/22/2023 Yes Obesity (BMI 30.0-34.9) 04/26/2023 Yes Syncope 04/22/2023 Yes #Abnormal lower extremty Arterial US -recently dx with blt DVTs and PE -US: Peroneal Artery: Absent Doppler waveforms. Incidental finding of partially compressible proximal femoral vein and non compressible mid to distal femoral, popliteal, tibioperoneal trunk, peroneal and posterior tibial veins with absent spectralDoppler signals. -vascular reconconsulted but they were able to obtain pulse. No further intervention. INR at goal. Follow up outpatinet -neurovascular checks at facility ##transitional care planning -has POA -Discharge planning-->POA , placement pending [][] -[facility] reoprted they would allow patient to return but patient wants another facilty ,although wants to go home over everything -Pt report admitted from rehab for Rigth TKA states progressing with gait and transfers and walkinglonger distances. #acute on chronic hypoxic resp failure #Saddle PE #DVT -o2 needs down to 2-3L -s/p pulm artery thrombectomy. -no RV strain on Echo, EF 60-65% -also found to have DVTs, Proximal Femoral Vein: Acute thrombus. Noncompressible. , Middle Femoral Vein: Acute thrombus. Noncompressible. Distal Femoral Vein: Acute thrombus. Noncompressible. , Popliteal Vein: Noncompressible. -stable and downgraded from ICU. Plan to transition to oral. Given seizure hx.mediucation side effects will need to bridge with coumadin. Pharmacy to dose, daily INR. Willn eed to get set up with coumadin clinic. -denies cp, sob, abdominal pain. Hgb stable. On room air, no signs of active heart strain. Continuetele. -recent right TKr 2 weeks ago but at baseline is bedbound from my understanding. Concern for VTE now and in future thus hematology consulted about lifelong vs 3-6 month of AC? -phramcy to dose, daily INR,coumadin , monitor liver function, hgb, plt, drug interactions -case mgt to set up coumadin clinic, case report no inr clinic needed , iNR checks before discharge -vascular signed off, Hematology on board -hold ivf, cxr, dimer, troponin, EKG,bnp, neuro checks, may need lasix. -Target INR 2-3 -Anticoagulation is likely 6 months since this is a provoked thrombus . Continue to bridge with coumadin. Daily INR Patient was evaluated today for the diagnosis of COPD. I entered a DME order for home oxygen at 3 lpm because the diagnosis and testing require the patient to have supplemental oxygen. Condition willimprove or be benefited by oxygen use. The patient is able to perform good mobility in a home setting and therefore does require the use of a portable oxygen system. The need for this equipment was discussed with the patient and she understands and is in agreement. #Seizure disorder -on carbamazapine, held, neuro consulted -compliant, no recent seizure activity reported. She says her brother doesn't want her on it and they are planning on stopping. -DOACs have drug interaction with seizure med, will need to use coumadin as per pharmacy -seizure precautions, monitor level -she says she hasn't had a seizure in over 30 years? -pt reports that he brother had her stop the Tegretol -neuro consult #Cognitive Delay -Ao3 when seen , poor insight, brother POTeressa, severity unknown #chronic urinary incontience -denies urinary symptoms, reports chronic incontience, not on any home meds, will continue to monitor -resume home medication #Anemia -Hgb low, no signs of active bleeding. On protonix and coumadin. PLT stable, range, continue to monitor #Lymphemea of lower limbs #post Right knee replacement -continue ptot -Wound care monitoring -neurovascular checks -ptot * Abhinav Gonzales MD - 04/27/2023 9:28 AM EST Physician Progress Note Patient - Elizabeth Hull [place] Date of Admission - 04/21/2023 2:29 PM Date of Evaluation - 04/22/2023 Room and Bed Number - 3002/3002-01 Hospital Day - 1 Cc- pe SUBJECTIVE: OVERNIGHT EVENTS: Denied shortness of breath No acute events reported overnight. INR - 2.4 Brief History: Patient, 57-year-old female, transferred from [facility] where she was found to have saddle pulmonary embolism. Patient recently underwent right total knee replacement 2 weeks ago at [facility]. Yesterday, patient was feeling dizzy and lightheaded. When she arrived to ED she was reporting chest pressure. She was also found to be in acute hypoxic respiratory failure, put on nasal cannula. Her CT PE was done which showed saddle pulmonary embolism. Considering her acute condition, she was transferred to [facility] for further evaluation management. Vascular surgery has been consulted to plan to do pulmonary artery thrombectomy. Review of Systems Constitutional: Negative for fatigue and fever. Respiratory: Negative for cough, shortness of breath and wheezing. Cardiovascular: Positive for leg swelling. Negative for chest pain and palpitations. Gastrointestinal: Positive for nausea. Negative for abdominal distention and abdominal pain. OBJECTIVE: Date 04/22/23 0000 - 04/22/23 2359 Shift [id number] 6943-0468 4575-0056 24 Hour Total INTAKE I.V.(mL/kg) 81.9(0.8) 81.9(0.8) Shift Total(mL/kg) 81.9(0.8) 81.9(0.8) OUTPUT Shift Total(mL/kg) Weight (kg) 106.5 106.5 106.5 106.5 PHYSICAL EXAM: Physical Exam Vitals and nursing note reviewed. Constitutional: General: She is awake. She is not in acute distress. Appearance: Normal appearance. She is not ill-appearing. HENT: Head: Atraumatic. Nose: Nose normal. Eyes: General: No scleral icterus. Conjunctiva/sclera: Conjunctivae normal. Cardiovascular: Heart sounds: Normal heart sounds. Pulmonary: Breath sounds: Normal breath sounds. Abdominal: General: Abdomen is flat. Palpations: Abdomen is soft. Musculoskeletal: General: Swelling present. Right knee: Swelling present. Left knee: No swelling. Right lower leg: No edema. Left lower leg: No edema. Comments: Incision site on knee pantoprazole (PROTONIX) tablet 40 mg, QAM AC ammonium lactate (LAC-HYDRIN) 12 % lotion, Daily ipratropium 0.5 mg-albuterol 2.5 mg (DUONEB) nebulizer solution 1 Dose, Q4H PRN heparin (porcine) injection 8,640 Units, PRN heparin (porcine) injection 4,320 Units, PRN heparin 25,000 units in dextrose 5% 250 mL (premix) infusion, Continuous cefTRIAXone (ROCEPHIN) 1000 mg in sterile water 10 mL IV syringe, Q24H warfarin placeholder: dosing by pharmacy, RX Placeholder [Held by provider] carBAMazepine (CARBATROL) extended release capsule 200 mg, TID docusate sodium (COLACE) capsule 100 mg, BID cetirizine (ZYRTEC) tablet 10 mg, Daily sertraline (ZOLOFT) tablet 25 mg, Daily guaiFENesin (MUCINEX) extended release tablet 1,200 mg, BID montelukast (SINGULAIR) tablet 10 mg, Nightly sodium chloride flush 0.9 % injection 5-40 mL, 2 times per day sodium chloride flush 0.9 % injection 5-40 mL, PRN 0.9 % sodium chloride infusion, PRN potassium chloride 20 mEq/50 mL IVPB (Central Line), PRN Or potassium chloride 10 mEq/100 mL IVPB (Peripheral Line), PRN magnesium sulfate 2000 mg in 50 mL IVPB premix, PRN ondansetron (ZOFRAN-ODT) disintegrating tablet 4 mg, Q8H PRN Or ondansetron (ZOFRAN) injection 4 mg, Q6H PRN polyethylene glycol (GLYCOLAX) packet 17 g, Daily PRN acetaminophen (TYLENOL) tablet 650 mg, Q6H PRN Or acetaminophen (TYLENOL) suppository 650 mg, Q6H PRN SUPPORT DEVICES: [] Ventilator [] BIPAP [x] Nasal Cannula [] Room Air Vitals: 04/27/23 0855 BP: Pulse: 82 Resp: 20 Temp: SpO2: 98% Vitals: BP 133/69 Pulse 82 Temp 98.1 F (36.7 C) (Oral) Resp 20 Ht 1.778 m (5' 10 ) Wt 105.1 kg (231 lb 11.3 oz) SpO2 98% BMI 33.25 kg/m on I/O I/O (24 Hours) Patient Vitals for the past 8 hrs: BP Temp Temp src Pulse Resp SpO2 Weight 04/27/23 0855 -- -- -- 82 20 98 % -- 04/27/23 0752 133/69 98.1 F (36.7 C) Oral 79 18 97 % -- 04/27/23 0438 -- -- -- 83 18 95 % -- 04/27/23 0347 -- -- -- -- -- -- 105.1 kg (231 lb 11.3 oz) Intake/Output Summary (Last 24 hours) at 04/27/2023 0928 Last data filed at 04/27/2023 0630 Gross per 24 hour Intake 1772.88 ml Output 1100 ml Net 672.88 ml I/O last 3 completed shifts: In: 2492.9 [P.O.:1720; I.V.:772.9] Out: 1880 [Urine:1850; Emesis/NG output:30] Date 04/27/23 0000 - 04/27/23 2359 Shift 9228-3186 6812-0481 6641-2344 24 Hour Total INTAKE P.O.(mL/kg/hr) 400(0.5) 400 I.V.(mL/kg) 128.2(1.2) 128.2(1.2) Shift Total(mL/kg) 528.2(5) 528.2(5) OUTPUT Urine(mL/kg/hr) 600(0.7) 600 Shift Total(mL/kg) 600(5.7) 600(5.7) Weight (kg) 105.1 105.1 105.1 105.1 Patient Vitals for the past 96 hrs (Last 3 readings): Weight 04/27/23 0347 105.1 kg (231 lb 11.3 oz) 04/26/23 0127 108 kg (238 lb 1.6 oz) 04/25/23 0600 107.2 kg (236 lb 5.3 oz) Labs: CBC: Recent Labs 04/25/23 0741 04/26/23 0553 04/26/23 1824 WBC 6.3 7.9 8.9 HGB 9.8* 10.0* 10.3* HCT 32.7* 31.3* 34.0* MCV 100.0 95.4 99.1 PLT 343 321 328 BMP: Recent Labs 04/25/23 0741 04/26/23 0553 04/27/23 0641 NA 137 137 138 K 4.0 4.2 4.4 CL 103 101 103 CO2 23 26 25 BUN 13 10 12 CREATININE 0.5 0.5 0.5 LIVER PROFILE: No results for input(s): AST , ALT , LIPASE , AMYLASE , ALB , BILIDIR , BILITOT , ALKPHOS in the last 72 hours. PT/INR: Recent Labs 04/25/23 0741 04/26/23 0553 04/27/23 0641 PROTIME 18.4* 21.5* 26.0* INR 1.6 1.9 2.4 APTT: Recent Labs 04/26/23 1824 APTT 43.5* UA: Recent Labs 04/26/232004 COLORU Yellow PHUR 6.5 WBCUA 2 TO 5 RBCUA 2 TO 5 BACTERIA None SPECGRAV 1.011 LEUKOCYTESUR TRACE* UROBILINOGEN Normal BILIRUBINUR NEGATIVE GLUCOSEU NEGATIVE No results for input(s): PHART , [id number] , PO2ART in the last 72 hours. ABG No results found for: PH , PCO2 , PO2 , HCO3 , O2SAT No results found for: IFIO2 , MODE , SETTIDVOL , SETPEEP ASSESSMENT: Patient Active Problem List Diagnosis Date Noted Acute saddle pulmonary embolism with acute cor pulmonale (HCC) 04/21/2023 acute dvt Provoked post knee surgery Post mechanical thrombectomy PLAN: Target inr - 2-3 for 6 months :INR today 2.4 We will sign off [facility] Internal Medicine Residency Program, PGY - 3 [place], [place] Attending Physician Statement I have discussed the care of Elizabeth Sánchez, including pertinent history and exam findings, with the resident. I have seen and examined the patient and the mario elements of all parts of the encounter have been performed by me. I agree with the assessment, plan and orders as documented by the resident with additions . Please note that this chart was generated using voice recognition [email or web address] dictation software. Although every effort was made to ensure the accuracy of this automated imaging administrator, some errors in imaging administrator may have occurred. * Kareem Bailey RCP - 04/26/2023 11:40 PM EST PATIENT REFUSES TO WEAR BIPAP [x] Risks and benefits explained to patient [x] Patient refuses to wear Bipap stating pt awake, not ready to sleep, unsure about wearing [x] Patient verbalizes understanding of information presented. * Nadia Mcdonald MD - 04/26/2023 4:00 PM EST Images from the original note were not included. Today's Date: 04/25/2023 Patient Name: Elizabeth Sánchez Date of admission: 04/21/2023 2:29 PM Patient's age: 57 y.o., 1965 Admission Dx: Pulmonary embolism (HCC) [I26.99] Acute saddle pulmonary embolism without acute cor pulmonale (HCC) [I26.92] Reason for Consult: management recommendations Requesting Physician: Abhinav Gonzales MD CHIEF COMPLAINT: Acute pulmonary embolism SUBJECTIVE: . Patient was seen and examined. She is clinically stable. No chest pain. No hemoptysis. No shortness of breath. No leg pain or swelling. Started on Coumadin. INR today is 1.9.. BRIEF CASE HISTORY: The patient is a 57 y.o. female who is admitted to the hospital for acute pulmonary embolism. She underwent right knee replacement 2 weeks prior and she was in the rehab. She presented with dizzinessand lightheadedness. She was transferred to emergency room with chest pressure. She was found to have acute pulmonary embolism with right heart strain. Vascular were consulted and she underwent mechanical thrombectomy. After that, she was started on anticoagulation with heparin The patient has history of cognitive difficulty. Seizure disorder Past Medical History: has a past medical history of Mental developmental delay, Osteoarthritis, Seasonal allergies, and Seizure disorder (HCC). Past Surgical History: has a past surgical history that includes vascular surgery (N/A, 04/21/2023)and Total knee arthroplasty (Right). Medications: Reviewed in [facility] including carbamazepine Allergies: Dilantin [phenytoin] Social History: reports that she has never smoked. She has never been exposed to tobacco smoke. Shehas never used smokeless tobacco. She reports that she does not currently use alcohol. She reports that she does not use drugs. Family History: family history includes Cancer in her mother; Diabetes in her father; Heart Failurein her father; Other in her brother and mother; Stroke in her mother. REVIEW OF SYSTEMS: Constitutional: No fever or chills. No night sweats, no weight loss Eyes: No eye discharge, double vision, or eye pain HEENT: negative for sore mouth, sore throat, hoarseness and voice change Respiratory: Chest pressure and shortness of breath improved significantly Cardiovascular: negative for chest pain, dyspnea, palpitations, orthopnea, PND Gastrointestinal: negative for nausea, vomiting, diarrhea, constipation, abdominal pain, Dysphagia,hematemesis and hematochezia Genitourinary: negative for frequency, dysuria, nocturia, urinary incontinence, and hematuria Integument: negative for rash, skin lesions, bruises. Hematologic/Lymphatic: negative for easy bruising, bleeding, lymphadenopathy, or petechiae Endocrine: negative for heat or cold intolerance,weight changes, change in bowel habits and hair loss Musculoskeletal: negative for myalgias, arthralgias, pain, joint swelling,and bone pain Neurological: negative for headaches, she states that she does not feel dizzy. She has a previous history of seizure disorder but nothing recently acute pulmonary embolism, provoked postoperative PHYSICAL EXAM: BP 116/75 Pulse 86 Temp 97.7 F (36.5 C) (Oral) Resp 18 Ht 1.778 m (5' 10 ) Wt 107.1 kg (236 lb 2 oz) SpO2 95% BMI 33.88 kg/m Temp (24hrs), Av F (36.7 C), Min:97.7 F (36.5 C), Max:98.2 F (36.8 C) General appearance - well appearing, no in pain or distress Mental status - alert and cooperative Eyes - pupils equal and reactive, extraocular eye movements intact Ears - bilateral TM's and external ear canals normal Mouth - mucous membranes moist, pharynx normal without lesions Neck - supple, no significant adenopathy Lymphatics - no palpable lymphadenopathy, no hepatosplenomegaly Chest - clear to auscultation, no wheezes, rales or rhonchi, symmetric air entry Heart - normal rate, regular rhythm, normal S1, S2, no murmurs Abdomen - soft, nontender, nondistended, no masses or organomegaly Neurological - alert, oriented, normal speech, no focal findings or movement disorder noted Musculoskeletal - no joint tenderness, deformity or swelling Extremities - peripheral pulses normal, no pedal edema, no clubbing or cyanosis Skin - normal coloration and turgor, no rashes, no suspicious skin lesions noted , DATA: Labs: CBC: Recent Labs 04/24/23 0710 04/25/23 0741 WBC 4.2 6.3 HGB 9.3* 9.8* HCT 29.7* 32.7* PLT 350 343 BMP: Recent Labs 04/24/23 0710 04/25/23 0741 NA 138 137 K 4.2 4.0 CO2 24 23 BUN 10 13 CREATININE 0.5 0.5 LABGLOM >60 >60 GLUCOSE 116* 119* PT/INR: Recent Labs 04/24/23 0710 04/25/23 0741 PROTIME 14.1 18.4* INR 1.1 1.6 IMAGING DATA: Primary Problem Acute saddle pulmonary embolism without acute cor pulmonale (HCC) Active Hospital Problems Diagnosis Date Noted Acute deep vein thrombosis (DVT) ([facility]) [I82.409] 04/22/2023 Obesity (BMI 30.0-34.9) [E66.9] 04/22/2023 Acute hypoxic respiratory failure ([facility]) [J96.01] 04/22/2023 Seizure disorder ([facility]) [G40.909] 04/22/2023 Syncope [R55] 04/22/2023 Acute saddle pulmonary embolism without acute cor pulmonale ([facility]) [I26.92] 04/21/2023 IMPRESSION: Acute DVT/pulmonary embolism, provoked after knee surgery Recent knee surgery History of seizure disorder Status post mechanical thrombectomy RECOMMENDATIONS: Status post mechanical thrombectomy Agree with anticoagulation, she is currently on heparin Because of vascular disorder on carbamazepine, there is a drug interaction with oral anticoagulantsincluding Eliquis, Xarelto on warfarin. However, the warfarin can be monitored through INR so it might be the safest option. Another option is to change the carbamazepine to a different seizure medication and that we will open the door for DOAC Started on warfarin. Monitor INR. Target INR 2-3. We will follow with you. Duration of anticoagulation is likely 6 months since this is a provoked thrombus. However, we will finalize decision depending on her status at 6-month No need for hypercoagulable workup right now. We will determine the need as an outpatient Nadia Lund MD [facility] This note is created with the assistance of a speech recognition program. While intending to generate a document that actually reflects the content of the visit, the document can still have some errors including those of syntax and sound a like substitutions which may escape proof reading. It such instances, actual meaning can be extrapolated by contextual diversion. * Sourav Mak, [facility] - 04/26/2023 12:40 PM EST Pharmacy Note Warfarin Consult follow-up Recent Labs 04/26/23 0553 INR 1.9 Recent Labs 04/24/23 0710 04/25/23 0741 04/26/23 0553 HGB 9.3* 9.8* 10.0* HCT 29.7* 32.7* 31.3* PLT 350 343 321 Significant Drug-Drug Interactions: New warfarin drug-drug interactions: none Discontinued drug-drug interactions: none Give warfarin 7.5mg Notes: Daily PT/INR while inpatient. -Sourav Mak PharmD, BCPS 04/26/2023 12:40 PM * Abhinav Gonzales MD - 04/26/2023 12:21 PM EST Physician Progress Note Patient - Elizabeth Hull [place] Date of Admission - 04/21/2023 2:29 PM Date of Evaluation - 04/22/2023 Room and Bed Number - 3002/3002-01 Hospital Day - 1 Cc- pe SUBJECTIVE: OVERNIGHT EVENTS: No acute events reported overnight. Inr - 1.9 Brief History: Patient, 57-year-old female, transferred from [facility] where she was found to have saddle pulmonary embolism. Patient recently underwent right total knee replacement 2 weeks ago at [facility]. Yesterday, patient was feeling dizzy and lightheaded. When she arrived to ED she was reporting chest pressure. She was also found to be in acute hypoxic respiratory failure, put on nasal cannula. Her CT PE was done which showed saddle pulmonary embolism. Considering her acute condition, she was transferred to [place] for further evaluation management. Vascular surgery has been consulted to plan to do pulmonary artery thrombectomy. Review of Systems Constitutional: Positive for fever. Negative for fatigue. Respiratory: Positive for cough and shortness of breath. Negative for wheezing. Cardiovascular: Positive for leg swelling. Negative for chest pain and palpitations. Gastrointestinal: Positive for nausea. Negative for abdominal distention and abdominal pain. OBJECTIVE: Date 04/22/23 - 04/22/23 2359 Shift [id number] 1786-8443 8071-0103 24 Hour Total INTAKE I.V.(mL/kg) 81.9(0.8) 81.9(0.8) Shift Total(mL/kg) 81.9(0.8) 81.9(0.8) OUTPUT Shift Total(mL/kg) Weight (kg) 106.5 106.5 106.5 106.5 PHYSICAL EXAM: Physical Exam Vitals and nursing note reviewed. Constitutional: General: She is awake. She is not in acute distress. Appearance: Normal appearance. She is not ill-appearing. HENT: Head: Atraumatic. Nose: Nose normal. Eyes: General: No scleral icterus. Conjunctiva/sclera: Conjunctivae normal. Cardiovascular: Heart sounds: Normal heart sounds. Pulmonary: Breath sounds: Normal breath sounds. Abdominal: General: Abdomen is flat. Palpations: Abdomen is soft. Musculoskeletal: General: Swelling present. Right knee: Swelling present. Left knee: No swelling. Right lower leg: No edema. Left lower leg: No edema. Comments: Incision site on knee warfarin (COUMADIN) tablet 7.5 mg, Once [START ON 04/27/2023] pantoprazole (PROTONIX) tablet 40 mg, QAM AC oxyCODONE-acetaminophen (PERCOCET) 5-325 MG per tablet 1 tablet, Q6H PRN ammonium lactate (LAC-HYDRIN) 12 % lotion, Daily ipratropium 0.5 mg-albuterol 2.5 mg (DUONEB) nebulizer solution 1 Dose, Q4H PRN warfarin placeholder: dosing by pharmacy, RX Placeholder [Held by provider] carBAMazepine (CARBATROL) extended release capsule 200 mg, TID docusate sodium (COLACE) capsule 100 mg, BID cetirizine (ZYRTEC) tablet 10 mg, Daily sertraline (ZOLOFT) tablet 25 mg, Daily guaiFENesin (MUCINEX) extended release tablet 1,200 mg, BID montelukast (SINGULAIR) tablet 10 mg, Nightly sodium chloride flush 0.9 % injection 5-40 mL, 2 times per day sodium chloride flush 0.9 % injection 5-40 mL, PRN 0.9 % sodium chloride infusion, PRN potassium chloride 20 mEq/50 mL IVPB (Central Line), PRN Or potassium chloride 10 mEq/100 mL IVPB (Peripheral Line), PRN magnesium sulfate 2000 mg in 50 mL IVPB premix, PRN ondansetron (ZOFRAN-ODT) disintegrating tablet 4 mg, Q8H PRN Or ondansetron (ZOFRAN) injection 4 mg, Q6H PRN polyethylene glycol (GLYCOLAX) packet 17 g, Daily PRN acetaminophen (TYLENOL) tablet 650 mg, Q6H PRN Or acetaminophen (TYLENOL) suppository 650 mg, Q6H PRN SUPPORT DEVICES: [] Ventilator [] BIPAP [x] Nasal Cannula [] Room Air Vitals: 04/26/23 0739 BP: 118/69 Pulse: 99 Resp: 20 Temp: 99 F (37.2 C) SpO2: 90% Vitals: BP 118/69 Pulse 99 Temp 99 F (37.2 C) (Oral) Resp 20 Ht 1.778 m (5' 10 ) Wt 108 kg (238 lb 1.6 oz) SpO2 90% BMI 34.16 kg/m on I/O I/O (24 Hours) No data found. Intake/Output Summary (Last 24 hours) at 04/26/2023 1719 Last data filed at 04/26/2023 0853 Gross per 24 hour Intake 720 ml Output 1180 ml Net -460 ml I/O last 3 completed shifts: In: 720 [P.O.:720] Out: 1250 [Urine:1250] Date 04/26/23 - 04/26/23 235 Shift 7702-4079 1331-3068 6620-4112 24 Hour Total INTAKE P.O.(mL/kg/hr) 240(0.3) 240 Shift Total(mL/kg) 240(2.2) 240(2.2) OUTPUT Urine(mL/kg/hr) 750(0.9) 750 Emesis/NG output(mL/kg) 30(0.3) 30(0.3) Shift Total(mL/kg) 750(6.9) 30(0.3) 780(7.2) Weight (kg) 108 108 108 108 Patient Vitals for the past 96 hrs (Last 3 readings): Weight 04/26/23 0127 108 kg (238 lb 1.6 oz) 04/25/23 0600 107.2 kg (236 lb 5.3 oz) 04/24/23 0600 107.1 kg (236 lb 2 oz) Labs: CBC: Recent Labs 04/24/23 0710 04/25/23 0741 04/26/23 0553 WBC 4.2 6.3 7.9 HGB 9.3* 9.8* 10.0* HCT 29.7* 32.7* 31.3* MCV 97.7 100.0 95.4 PLT 350 343 321 BMP: Recent Labs 04/24/23 0710 04/25/23 0741 04/26/23 0553 NA 138 137 137 K 4.2 4.0 4.2 CL 104 103 101 CO2 24 23 26 BUN 10 13 10 CREATININE 0.5 0.5 0.5 LIVER PROFILE: Recent Labs 04/24/23 0710 AST 18 ALT 21 BILITOT 0.2* ALKPHOS 109* PT/INR: Recent Labs 04/24/23 0710 04/25/23 0741 04/26/23 0553 PROTIME 14.1 18.4* 21.5* INR 1.1 1.6 1.9 APTT: No results for input(s): APTT in the last 72 hours. UA:No results for input(s): NITRITE , COLORU , PHUR , LABCAST , WBCUA , RBCUA , MUCUS , TRICHOMONAS , YEAST , BACTERIA , CLARITYU , SPECGRAV , LEUKOCYTESUR , UROBILINOGEN , BILIRUBINUR , BLOODU , GLUCOSEU , AMORPHOUS in the last 72 hours. Invalid input(s): KETONESU No results for input(s): PHART , PER1ZXU , PO2ART in the last 72 hours. ABG No results found for: PH , PCO2 , PO2 , HCO3 , O2SAT No results found for: IFIO2 , MODE , SETTIDVOL , SETPEEP ASSESSMENT: Patient Active Problem List Diagnosis Date Noted Acute saddle pulmonary embolism with acute cor pulmonale (HCC) 04/21/2023 acute dvt Provoked post knee surgery Post mechanical thrombectomy PLAN: Target inr - 2-3 for 6 months Recommend bridge with Lovenox or heparin gtt while INR <2 . * Ismael Reynolds MD - 04/26/2023 9:07 AM EST Images from the original note were not included. [facility] Office: [phone] Reggie Barrera DO, Darin Forman DO, Werner Parra DO, Ramses Fish DO, Wanda Montgomery MD, Rosa Elena Schwartz MD, Vani Hsu MD, Katie Stallings MD, Narinder Maki MD, Katerina Christy MD, Jorge A Seaman MD, Rayo Escobedo DO, Trav Burnett MD, Tevin Castillo MD, Nola Barrera DO, Demetria Elmore MD, Vinay Juarez DO, Kamilah Finney MD, Kinsey Gonzales MD, Candis Carrera MD, Ivelisse De Luna MD, Trent Cooley MD, Trung Cr MD, Kt Brown MD, Antony Rodriguez MD, Yon Guerrero MD, Elizabeth Younger MD, Kyle Rodriguez DO, Je Munguia DO, Nathalia Brooke MD, Isaak Padilla MD, Lissette Rodriguez, ANY, Elizabeth Bryant CNP, Tino Lr, ANY, Leticia Zuniga, RUDDY,Kim Hammer, ANY, Rebekah Vásquez, BEAM SAW OPERATOR, Steph Ly, BEAM SAW OPERATOR, Maryanne Oh, BEAM SAW OPERATOR, Laly Navarro, BEAM SAW OPERATOR, Jennifer Souza PA-C, Desi Gann PA-C, Nidia Montgomery, BEAM SAW OPERATOR, Palmira Gonzales, DEEPTI, Valery Gary, BEAM SAW OPERATOR, Margoth Ackerman, BEAM SAW OPERATOR, Ricarda Shelby, BEAM SAW OPERATOR [facility] IN-PATIENT SERVICE [facility] Progress Note 04/26/2023 9:07 AM Name: Elizabeth Sánchez Acct: [id number] Room: [address] [place] [address] Day: 5 Admit Date: 04/21/2023 2:29 PM PCP: No primary care provider on file. Code Status: Full Code Subjective: C/C: Chief Complaint Patient presents with Shortness of Breath Loss of Consciousness Pending placement Interval History Status: worsened. This Am , patient unable to take oral meds due to nausea which is new. No overnight events. Afebrile hemodynamicly stable since last assessed. Labs today overall unchanged. EKG, troponin ordered, antimetic, ivf, change po to IV. Will continue to evaluate and stabilize. Concern for volume overload development, will dc and evaluate. Patient reported headache without neurological symptoms. Was sitting in commode when seen. No new deficits. Bp not elevated. Underlying dysautonomia. If continues will obtain imaging. no documented overnight events Brief History: 57 y.o. with presented as transfer from [place] to er with 2d of sob, syncope.S he underwent right knee replacement 2 weeks prior and she was in the rehab. She has underlying cognitive difficulty, Seizure disorder, lyphemedma, osteoarbthitis , questionable 2L intermittently at home., female who is admitted to the hospital for acute pulmonary embolism with strain seen on outside CT scan transferred for vascular services. S. She presented with dizziness and lightheadedness. She was transferred toemergency room with chest pressure. she underwent mechanical thrombectomy. After that, she was started on anticoagulation with heparin and bridged to coumadin. Further work up revealed blt DVTs. She has had ongoing leg edema. Overall improving, plan is to be dc to facility. Neuro consulted about seizure medication. Oncology guiding anticoagulation and hematological concerns. Review of Systems: Constitutional: negative for chills, fevers, sweats Respiratory: negative for cough, dyspnea on exertion, shortness of breath, wheezing Cardiovascular: negative for chest pain, chest pressure/discomfort, lower extremity edema, palpitations Gastrointestinal: negative for abdominal pain, constipation, diarrhea, nausea, vomiting Neurological: negative for dizziness,+ headache Medications: Allergies: Allergies Allergen Reactions Dilantin [Phenytoin] Current Meds: Scheduled Meds: pantoprazole (PROTONIX) 40 mg in sodium chloride (PF) 0.9 % 10 mL injection 40 mg IntraVENous Daily warfarin placeholder: dosing by pharmacy Other RX Placeholder [Held by provider] carBAMazepine 200 mg Oral TID docusate sodium 100 mg Oral BID cetirizine 10 mg Oral Daily sertraline 25 mg Oral Daily guaiFENesin 1,200 mg Oral BID montelukast 10 mg Oral Nightly sodium chloride flush 5-40 mL IntraVENous 2 times per day Continuous Infusions: sodium chloride sodium chloride PRN Meds: sodium chloride flush, sodium chloride, potassium chloride OR potassium chloride, magnesium sulfate, ondansetron OR ondansetron, polyethylene glycol, acetaminophen OR acetaminophen Data: Past Medical History: has a past medical history of Mental developmental delay, Osteoarthritis, Seasonal allergies, and Seizure disorder (HCC). Social History: reports that she has never smoked. She has never been exposed to tobacco smoke. Shehas never used smokeless tobacco. She reports that she does not currently use alcohol. She reports that she does not use drugs. Family History: Family History Problem Relation Age of Onset Cancer Mother Stroke Mother Other Mother Heart Failure Father Diabetes Father Other Brother Vitals: BP 118/69 Pulse 99 Temp 99 F (37.2 C) (Oral) Resp 20 Ht 1.778 m (5' 10 ) Wt 108 kg (238 lb 1.6 oz) SpO2 90% BMI 34.16 kg/m Temp (24hrs), Av.7 F (37.1 C), Min:98.4 F (36.9 C), Max:99 F (37.2 C) No results for input(s): POCGLU in the last 72 hours. I/O (24Hr): Intake/Output Summary (Last 24 hours) at 04/26/2023 0907 Last data filed at 04/26/2023 0417 Gross per 24 hour Intake 720 ml Output 1150 ml Net -430 ml Labs: Hematology: Recent Labs 04/24/23 0710 04/25/23 0741 04/26/23 0553 WBC 4.2 6.3 7.9 RBC 3.04* 3.27* 3.28* HGB 9.3* 9.8* 10.0* HCT 29.7* 32.7* 31.3* MCV 97.7 100.0 95.4 MCH 30.6 30.0 30.5 MCHC 31.3 30.0 31.9 RDW 13.9 13.7 13.7 PLT 350 343 321 MPV 9.0 9.2 9.2 INR 1.1 1.6 1.9 Chemistry: Recent Labs 04/24/23 0710 04/25/23 0741 04/26/23 0553 NA 138 137 137 K 4.2 4.0 4.2 CL 104 103 101 CO2 24 23 26 GLUCOSE 116* 119* 131* BUN 10 13 10 CREATININE 0.5 0.5 0.5 ANIONGAP 10 11 10 LABGLOM >60 >60 >60 CALCIUM 8.5* 8.6 8.7 Recent Labs 04/24/23 0710 PROT 5.7* LABALBU 3.1* AST 18 ALT 21 ALKPHOS 109* BILITOT 0.2* ABG:No results found for: POCPH , PHART , PH , POCPCO2 , FSC3EDO , PCO2 , POCPO2 , PO2ART , PO2 , POCHCO3 , JKT7LRC , HCO3 , NBEA , PBEA , BEART , BE , THGBART , THB , YRA8YRM , KMSF5HUT , [id number] , O2SAT , FIO2 No results found for: SPECIAL No results found for: CULTURE Radiology: No results found. Physical Examination: General appearance: ao3, chroniclly ill appearing , tired and weak. Mental Status: oriented to person, place and time and normal affect Lungs: reduced breath sounds throughout, poor inspiratory reserve/effort, no wheezing or rhonchi Heart: regular rate and rhythm Abdomen: soft, nontender, nondistended, normal bowel sounds Extremities: pitting edema blt limbs +3, reports baseline lymphedema. incision site on rite thigh looks clean, no pus,drainage, active bleeding noted. Site is non tender. Right knee incision site is clean, stiches intact.no edema, redness, tenderness in the calves. Skin: as per above, no other gross lesions, rashes, induration Assessment: Hospital Problems Last Modified POA * (Principal) Acute saddle pulmonary embolism without acute cor pulmonale (HCC) 04/21/2023 Yes Acute deep vein thrombosis (DVT) (HCC) 04/22/2023 Yes Obesity (BMI 30.0-34.9) 04/22/2023 Yes Acute hypoxic respiratory failure (HCC) 04/22/2023 Yes Seizure disorder (HCC) 04/22/2023 Yes Syncope 04/22/2023 Yes #transitional care planning -has POA -Discharge planning-->POA , placement pending [][] -[facility] re[facility]rted they would allow patient to return but patient wants another facilty ,although wants to go home over everything -Pt report admitted from rehab for Rigth TKA states progressing with gait and transfers and walkinglonger distances. #acute on chronic hypoxic resp failure #Saddle PE #DVT -o2 needs increasing. On 4L, on 2L at home -s/p pulm artery thrombectomy. -no RV strain on Echo, EF 60-65% -also found to have DVTs, Proximal Femoral Vein: Acute thrombus. Noncompressible. , Middle Femoral Vein: Acute thrombus. Noncompressible. Distal Femoral Vein: Acute thrombus. Noncompressible. , Popliteal Vein: Noncompressible. -stable and downgraded from ICU. Plan to transition to oral. Given seizure hx.mediucation side effects will need to bridge with coumadin. Pharmacy to dose, daily INR. Willn eed to get set up with coumadin clinic. -denies cp, sob, abdominal pain. Hgb stable. On room air, no signs of active heart strain. Continuetele. -recent right TKr 2 weeks ago but at baseline is bedbound from my understanding. Concern for VTE now and in future thus hematology consulted about lifelong vs 3-6 month of AC? -phramcy to dose, daily INR,coumadin , monitor liver function, hgb, plt, drug interactions -case mgt to set up coumadin clinic, case report no inr clinic needed , iNR checks before discharge -vascular signed off, Hematology on board -hold ivf, cxr, dimer, troponin, EKG,bnp, neuro checks, may need lasix. -Target INR 2-3 -Anticoagulation is likely 6 months since this is a provoked thrombus . Continue to bridge with coumadin. Daily INR #Seizure disorder -on carbamazapine, held, neuro consulted -compliant, no recent seizure activity reported. She says her brother doesn't want her on it and they are planning on stopping. -DOACs have drug interaction with seizure med, will need to use coumadin as per pharmacy -seizure precautions, monitor level -she says she hasn't had a seizure in over 30 years? -pt reports that he brother had her stop the Tegretol -neuro consult #Cognitive Delay -Ao3 when seen , poor insight, brother PEDRO, severity unknown #chronic urinary incontience -denies urinary symptoms, reports chronic incontience, not on any home meds, will continue to monitor -resume home medication #Anemia -Hgb low, no signs of active bleeding. On protonix and coumadin. PLT stable, range, continue to monitor #Lymphemea of lower limbs #post Right knee replacement -continue ptot -Wound care monitoring -neurovascular checks -ptot -compression and elevation of limbs AMANDA wraps to legs bilat * Ismael Reynolds MD - 04/25/2023 7:37 PM EST Images from the original note were not included. [facility] Office: [phone] Reggie Barrera DO, Darin Forman DO, Werner Parra DO, Ramses Fish DO, Wanda Montgomery MD, Rosa Elena Schwartz MD, Vani Hsu MD, Katie Stallings MD, Narinder Maki MD, Katerina Christy MD, Jorge A Seaman MD, Rayo Escobedo DO, Trav Burnett MD, Tevin Castillo MD, Nola Barrera DO, Demetria Elmroe MD, Vinay Juarez DO, Kamilah Finney MD, Kinsey Gonzaels MD, Candis Carrera MD, Ivelisse De Luna MD, Trent Cooley MD, Trung Cr MD, Kt Brown MD, Antony Rodriguez MD, Yon Guerrero MD, Elizabeth Younger MD, Kyle Rodriguez DO, Je Munguia DO, Nathalia Brooke MD, Isaak Padilla MD, Lissette Rodriguez CNP, Elizabeth Bryant CNP, Tino Lr CNP, Leticia Zuniga DNP,Kim Hammer CNP, Rebekah Vásquez, BEAM SAW OPERATOR, Steph Ly, BEAM SAW OPERATOR, Maryanne Oh, BEAM SAW OPERATOR, Laly Navarro, BEAM SAW OPERATOR, SHAY HdzC, SHAY GlaserC, Nidia Montgomery, BEAM SAW OPERATOR, Palmira Gonzales, BIOINFORMATICS SCIENTIST, Valery Gary, BEAM SAW OPERATOR, Margoth Ackerman, BEAM SAW OPERATOR, Ricarda Shelby, BEAM SAW OPERATOR [facility] IN-PATIENT SERVICE [facility] Progress Note 04/25/2023 7:37 PM Name: Elizabeth Sánchez Acct: [id number] Room: [address] [place] [address] Day: 4 Admit Date: 04/21/2023 2:29 PM PCP: No primary care provider on file. Code Status: Full Code Subjective: C/C: Chief Complaint Patient presents with Shortness of Breath Loss of Consciousness Interval History Status: improved. -remained hemodynamicy stable since last seen. Pending coumadin bridge, barrier with medication adverse effects but patient would like to keep coumadin and get INR checks due to objective nature of monitoring effects. -no new or worsening symptoms. She wants to leave, pending placement. -no documented overnight events Review of Systems: Constitutional: negative for chills, fevers, sweats Respiratory: negative for cough, dyspnea on exertion, shortness of breath, wheezing Cardiovascular: negative for chest pain, chest pressure/discomfort, lower extremity edema, palpitations Gastrointestinal: negative for abdominal pain, constipation, diarrhea, nausea, vomiting Neurological: negative for dizziness, headache Medications: Allergies: Allergies Allergen Reactions Dilantin [Phenytoin] Current Meds: Scheduled Meds: warfarin 5 mg Oral Once warfarin placeholder: dosing by pharmacy Other RX Placeholder pantoprazole 40 mg Oral QAM AC [Held by provider] carBAMazepine 200 mg Oral TID docusate sodium 100 mg Oral BID cetirizine 10 mg Oral Daily sertraline 25 mg Oral Daily guaiFENesin 1,200 mg Oral BID montelukast 10 mg Oral Nightly sodium chloride flush 5-40 mL IntraVENous 2 times per day Continuous Infusions: sodium chloride PRN Meds: sodium chloride flush, sodium chloride, potassium chloride OR potassium chloride, magnesium sulfate, ondansetron OR ondansetron, polyethylene glycol, acetaminophen OR acetaminophen Data: Past Medical History: has a past medical history of Mental developmental delay, Osteoarthritis, Seasonal allergies, and Seizure disorder (HCC). Social History: reports that she has never smoked. She has never been exposed to tobacco smoke. Shehas never used smokeless tobacco. She reports that she does not currently use alcohol. She reports that she does not use drugs. Family History: Family History Problem Relation Age of Onset Cancer Mother Stroke Mother Other Mother Heart Failure Father Diabetes Father Other Brother Vitals: BP 116/75 Pulse 86 Temp 97.7 F (36.5 C) (Oral) Resp 18 Ht 1.778 m (5' 10 ) Wt 107.1 kg (236 lb 2 oz) SpO2 95% BMI 33.88 kg/m Temp (24hrs), Av F (36.7 C), Min:97.7 F (36.5 C), Max:98.2 F (36.8 C) No results for input(s): POCGLU in the last 72 hours. I/O (24Hr): Intake/Output Summary (Last 24 hours) at 04/25/2023 1937 Last data filed at 04/25/2023 1729 Gross per 24 hour Intake -- Output 500 ml Net -500 ml Labs: Hematology: Recent Labs 04/23/23 0551 04/23/23 1522 04/24/23 0710 04/25/23 0741 WBC 4.8 -- 4.2 6.3 RBC 2.80* -- 3.04* 3.27* HGB 8.6* -- 9.3* 9.8* HCT 27.7* -- 29.7* 32.7* MCV 98.9 -- 97.7 100.0 MCH 30.7 -- 30.6 30.0 MCHC 31.0 -- 31.3 30.0 RDW 14.0 -- 13.9 13.7 PLT 296 -- 350 343 MPV 9.3 -- 9.0 9.2 INR -- 1.4 1.1 1.6 Chemistry: Recent Labs 04/23/23 0551 04/24/23 0710 04/25/23 0741 NA 138 138 137 K 3.8 4.2 4.0 CL 104 104 103 CO2 25 24 23 GLUCOSE 113* 116* 119* BUN 12 10 13 CREATININE 0.6 0.5 0.5 ANIONGAP 9 10 11 LABGLOM >60 >60 >60 CALCIUM 8.3* 8.5* 8.6 Recent Labs 04/24/23 0710 PROT 5.7* LABALBU 3.1* AST 18 ALT 21 ALKPHOS 109* BILITOT 0.2* ABG:No results found for: POCPH , PHART , PH , POCPCO2 , KKD2AID , PCO2 , POCPO2 , PO2ART , PO2 , POCHCO3 , ZXV8GSW , HCO3 , NBEA , PBEA , BEART , BE , THGBART , THB , KML0OVP , ETWI9CUL , W5TVXTWO , O2SAT , FIO2 No results found for: SPECIAL No results found for: CULTURE Radiology: No results found. Physical Examination: General appearance: alert, cooperative and no distress Mental Status: oriented to person, place and time and normal affect Lungs: clear to auscultation bilaterally, normal effort Heart: regular rate and rhythm, no murmur Abdomen: soft, nontender, nondistended, normal bowel sounds, no masses, hepatomegaly, splenomegaly Extremities: no edema, redness, tenderness in the calves Skin: no gross lesions, rashes, induration Assessment: Hospital Problems Last Modified POA * (Principal) Acute saddle pulmonary embolism without acute cor pulmonale (HCC) 04/21/2023 Yes Acute deep vein thrombosis (DVT) (HCC) 04/22/2023 Yes Obesity (BMI 30.0-34.9) 04/22/2023 Yes Acute hypoxic respiratory failure (HCC) 04/22/2023 Yes Seizure disorder (HCC) 04/22/2023 Yes Syncope 04/22/2023 Yes #DC planning -bridging with coumadin, INR near goal. Plan for DC Wednesday if accepted to facility -patient wanted to go home. Poor METs status. Came from SNF post surgery. Brother is POA. Resume seizure med and bridge with coumadin given drug interaction btw carbamexapine and DOAC. Case mgt recs appreciated. #Saddle PE #DVT -s/p pulm artery thrombectomy. -stable and downgraded from ICU. Plan to transition to oral. Given seizure hx.mediucation side effects will need to bridge with coumadin. Pharmacy to dose, daily INR. Willn eed to get set up with coumadin clinic. -denies cp, sob, abdominal pain. Hgb stable. On room air, no signs of active heart strain. Continuetele. -recent right TKA 2 weeks ago but at baseline is bedbound from my understanding. Concern for VTE now and in future. Will consult hematology about lifelong vs 3-6 month of AC? -phramcy to dose, daily INR, monitor liver function -Discharge planning-->POA wants NH but patient wants to go home -case mgt to set up coumadin clinic , iNR checks before discharge -vascular signed off. #Seizure disorder -on carbamazapine, held, will need to evaluate and resume -compliant, no recent seizure activity reported -DOACs have drug interaction with seizure med, will need to use coumadin -seizure precautions, monitor level #Cognitive Delay -Ao3 when seen , poor insight, brother PEDRO, severity unknown #chronic urinary incontience -denies urinary symptoms, reports chronic incontience, not on any home meds, will continue to monitor -resume home medication #post Right TKA -continue ptot -Wound care monitoring -neurovascular checks * Nadia Mcdonald MD - 04/25/2023 6:10 PM EST Images from the original note were not included. Today's Date: 04/25/2023 Patient Name: Elizabeth Sánchez Date of admission: 04/21/2023 2:29 PM Patient's age: 57 y.o., 1965 Admission Dx: Pulmonary embolism (HCC) [I26.99] Acute saddle pulmonary embolism without acute cor pulmonale (HCC) [I26.92] Reason for Consult: management recommendations Requesting Physician: Abhinav Gonzales MD CHIEF COMPLAINT: Acute pulmonary embolism SUBJECTIVE: . Patient was seen and examined. She is clinically stable. No chest pain. No hemoptysis. No shortness of breath. No leg pain or swelling. Started on Coumadin. INR today is 1.6.. BRIEF CASE HISTORY: The patient is a 57 y.o. female who is admitted to the hospital for acute pulmonary embolism. She underwent right knee replacement 2 weeks prior and she was in the rehab. She presented with dizzinessand lightheadedness. She was transferred to emergency room with chest pressure. She was found to have acute pulmonary embolism with right heart strain. Vascular were consulted and she underwent mechanical thrombectomy. After that, she was started on anticoagulation with heparin The patient has history of cognitive difficulty. Seizure disorder Past Medical History: has a past medical history of Mental developmental delay, Osteoarthritis, Seasonal allergies, and Seizure disorder (HCC). Past Surgical History: has a past surgical history that includes vascular surgery (N/A, 04/21/2023)and Total knee arthroplasty (Right). Medications: Reviewed in [facility] including carbamazepine Allergies: Dilantin [phenytoin] Social History: reports that she has never smoked. She has never been exposed to tobacco smoke. Shehas never used smokeless tobacco. She reports that she does not currently use alcohol. She reports that she does not use drugs. Family History: family history includes Cancer in her mother; Diabetes in her father; Heart Failurein her father; Other in her brother and mother; Stroke in her mother. REVIEW OF SYSTEMS: Constitutional: No fever or chills. No night sweats, no weight loss Eyes: No eye discharge, double vision, or eye pain HEENT: negative for sore mouth, sore throat, hoarseness and voice change Respiratory: Chest pressure and shortness of breath improved significantly Cardiovascular: negative for chest pain, dyspnea, palpitations, orthopnea, PND Gastrointestinal: negative for nausea, vomiting, diarrhea, constipation, abdominal pain, Dysphagia,hematemesis and hematochezia Genitourinary: negative for frequency, dysuria, nocturia, urinary incontinence, and hematuria Integument: negative for rash, skin lesions, bruises. Hematologic/Lymphatic: negative for easy bruising, bleeding, lymphadenopathy, or petechiae Endocrine: negative for heat or cold intolerance,weight changes, change in bowel habits and hair loss Musculoskeletal: negative for myalgias, arthralgias, pain, joint swelling,and bone pain Neurological: negative for headaches, she states that she does not feel dizzy. She has a previous history of seizure disorder but nothing recently acute pulmonary embolism, provoked postoperative PHYSICAL EXAM: BP 116/75 Pulse 86 Temp 97.7 F (36.5 C) (Oral) Resp 18 Ht 1.778 m (5' 10 ) Wt 107.1 kg (236 lb 2 oz) SpO2 95% BMI 33.88 kg/m Temp (24hrs), Av F (36.7 C), Min:97.7 F (36.5 C), Max:98.2 F (36.8 C) General appearance - well appearing, no in pain or distress Mental status - alert and cooperative Eyes - pupils equal and reactive, extraocular eye movements intact Ears - bilateral TM's and external ear canals normal Mouth - mucous membranes moist, pharynx normal without lesions Neck - supple, no significant adenopathy Lymphatics - no palpable lymphadenopathy, no hepatosplenomegaly Chest - clear to auscultation, no wheezes, rales or rhonchi, symmetric air entry Heart - normal rate, regular rhythm, normal S1, S2, no murmurs Abdomen - soft, nontender, nondistended, no masses or organomegaly Neurological - alert, oriented, normal speech, no focal findings or movement disorder noted Musculoskeletal - no joint tenderness, deformity or swelling Extremities - peripheral pulses normal, no pedal edema, no clubbing or cyanosis Skin - normal coloration and turgor, no rashes, no suspicious skin lesions noted , DATA: Labs: CBC: Recent Labs 04/24/23 0710 04/25/23 0741 WBC 4.2 6.3 HGB 9.3* 9.8* HCT 29.7* 32.7* PLT 350 343 BMP: Recent Labs 04/24/23 0710 04/25/23 0741 NA 138 137 K 4.2 4.0 CO2 24 23 BUN 10 13 CREATININE 0.5 0.5 LABGLOM >60 >60 GLUCOSE 116* 119* PT/INR: Recent Labs 04/24/23 0710 04/25/23 0741 PROTIME 14.1 18.4* INR 1.1 1.6 IMAGING DATA: Primary Problem Acute saddle pulmonary embolism without acute cor pulmonale (HCC) Active Hospital Problems Diagnosis Date Noted Acute deep vein thrombosis (DVT) (HCC) [I82.409] 04/22/2023 Obesity (BMI 30.0-34.9) [E66.9] 04/22/2023 Acute hypoxic respiratory failure (HCC) [J96.01] 04/22/2023 Seizure disorder (HCC) [G40.909] 04/22/2023 Syncope [R55] 04/22/2023 Acute saddle pulmonary embolism without acute cor pulmonale (HCC) [I26.92] 04/21/2023 IMPRESSION: Acute DVT/pulmonary embolism, provoked after knee surgery Recent knee surgery History of seizure disorder Status post mechanical thrombectomy RECOMMENDATIONS: Status post mechanical thrombectomy Agree with anticoagulation, she is currently on heparin Because of vascular disorder on carbamazepine, there is a drug interaction with oral anticoagulantsincluding Antony Jorgerelelroy on warfarin. However, the warfarin can be monitored through INR so it might be the safest option. Another option is to change the carbamazepine to a different seizure medication and that we will open the door for DOAC Started on warfarin. Monitor INR. Target INR 2-3. We will follow with you. Duration of anticoagulation is likely 6 months since this is a provoked thrombus. However, we will finalize decision depending on her status at 6-month No need for hypercoagulable workup right now. We will determine the need as an outpatient Nadia Lund MD [facility] This note is created with the assistance of a speech recognition program. While intending to generate a document that actually reflects the content of the visit, the document can still have some errors including those of syntax and sound a like substitutions which may escape proof reading. It such instances, actual meaning can be extrapolated by contextual diversion. * Chalino Damian, OT - 04/25/2023 3:55 PM EST Occupational Therapy Facility/Department: [facility] RENAL//MED SURG Occupational Therapy Initial Assessment Name: Elizabeth Sánchez : 1965 Date of Service: 04/25/2023 Chief Complaint Patient presents with Shortness of Breath Loss of Consciousness Discharge Recommendations: Patient would benefit from continued therapy after discharge Patient Diagnosis(es): The primary encounter diagnosis was Pulmonary embolism (HCC). A diagnosis ofAcute saddle pulmonary embolism without acute cor pulmonale (HCC) was also pertinent to this visit. Past Medical History: has a past medical history of Mental developmental delay, Osteoarthritis, Seasonal allergies, and Seizure disorder (HCC). Past Surgical History: has a past surgical history that includes vascular surgery (N/A, 04/21/2023)and Total knee arthroplasty (Right). Assessment Performance deficits / Impairments: Decreased functional mobility ;Decreased endurance;Decreased ADL status;Decreased balance;Decreased high-level IADLs Prognosis: Good Decision Making: Medium Complexity REQUIRES OT FOLLOW-UP: Yes Activity Tolerance Activity Tolerance: Patient limited by pain;Patient Tolerated treatment well Plan Occupational Therapy Plan Times Per Week: 3-4x Restrictions Restrictions/Precautions Restrictions/Precautions: Fall Risk, General Precautions, Up as Tolerated Required Braces or Orthoses?: No Position Activity Restriction Other position/activity restrictions: Up with assist, recent TKA, LOBO hose, or Amanda wraps (nursing to address), B/L DVT's Subjective General Patient assessed for rehabilitation services?: Yes Family / Caregiver Present: No Diagnosis: Acute PE/DVT, 04/21 thrmobectomy, recent R TKA, hx of seizures Subjective Subjective: RN approved therapy session, pt states 8/ proximal knee pain- recent sx, pt very cooperative, on 2L O2 entire session Social/Functional History Social/Functional History Lives With: Alone Type of Home: House Home Layout: One level Home Access: Level entry Bathroom Shower/Tub: Walk-in shower Bathroom Toilet: Standard Bathroom Equipment: Grab bars in shower Bathroom Accessibility: Accessible Home Equipment: Walker, rolling, Wheelchair-manual (using RW at SNF since L TKA) Has the patient had two or more falls in the past year or any fall with injury in the past year?: No Receives Help From: Family ADL Assistance: Independent Homemaking Assistance: Independent Homemaking Responsibilities: Yes Meal Prep Responsibility: Primary Laundry Responsibility: Primary Cleaning Responsibility: Primary Bill Paying/Finance Responsibility: Primary Shopping Responsibility: Primary Dependent Care Responsibility: Primary Health Care Management: Primary Other (Comment): sister in law assist with groceries Ambulation Assistance: Independent Transfer Assistance: Independent Active County Auditor: No Patient's County Auditor Info: sister in law Mode of Transportation: Car 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 Leisure & Hobbies: playing with cat, goes to [employer] on [address] Objective SpO2: 95 % O2 Device: Nasal cannula Observation/Palpation Posture: Good Observation: Pt demonstrate erect sitting and standing posure with midline symmetry Scar: Right knee surgical incision with jeffery in place Safety Devices Type of Devices: All fall risk precautions in place;Gait belt;Patient at risk for falls;Nurse notified;Left in chair;Call light within reach Restraints Restraints Initially in Place: No Bed Mobility Training Bed Mobility Training: Yes Supine to Sit: Modified independent;Additional time Sit to Supine: Other (comment) ([place], pt retired in recliner with legs elevated) Scooting: Modified independent Balance Sitting: (Pt sat unsupported in recliner/on EOB for total of 15 min at (I)) Standing: (Pt stood bedside/chairside for 3 min total at SUP) Transfer Training Transfer Training: Yes Sit to Stand: Supervision Stand to Sit: Supervision Gait Gait Training: Yes Overall Level of Assistance: Supervision Assistive Device: Gait belt;Walker, rolling Speed/Kathleen: Slow;Shuffled (no buckling or LOB noted, pt demo'd func mob around bed to recliner) AROM: Within functional limits PROM: Within functional limits Strength: Within functional limits (5/5 gross strength BUE) Coordination: Within functional limits Tone: Normal Sensation: Intact ADL Feeding: Independent Grooming: Modified independent UE Bathing: Supervision LE Bathing: Supervision UE Dressing: Supervision LE Dressing: Supervision Toileting: Supervision Additional Comments: Pt finished lunch right before automatic typewriter inspector entered room while supine with HOB elevated, pt transferred to EOB and doffed/donned R sock by bending at torso despite automatic typewriter inspector bringing sock-aid/laboratory equipment cleaner, pt transferred to recliner, pt demo'd good BUE strength Activity Tolerance Activity Tolerance: Patient tolerated evaluation without incident Vision Vision: Impaired Vision Exceptions: Wears glasses for distance Hearing Hearing: Within functional limits Cognition Overall Cognitive Status: WFL Cognition Comment: Pt may have minor baseline cognitive limitations based only on observations, very friendly and functional Orientation Overall Orientation Status: Within Functional Limits Orientation Level: Oriented X4 Education Given To: Patient Education Provided: Role of Therapy;Plan of Care Education Method: Verbal Barriers to Learning: None Education Outcome: Verbalized understanding AM-PAC - ADL AM-PAC Daily Activity - Inpatient How much help is needed for putting on and taking off regular lower body clothing?: A Little How much help is needed for bathing (which includes washing, rinsing, drying)?: A Little How much help is needed for toileting (which includes using toilet, bedpan, or urinal)?: A Little How much help is needed for putting on and taking off regular upper body clothing?: A Little How much help is needed for taking care of personal grooming?: None How much help for eating meals?: None AM-PAC Inpatient Daily Activity Raw Score: 20 AM-PAC Inpatient ADL T-Scale Score : 42.03 ADL Inpatient CMS 0-100% Score: 38.32 ADL Inpatient CMS G-Code Modifier : CJ Goals Short Term Goals Time Frame for Short Term Goals: Pt will by d/c Short Term Goal 1: demo good safety awareness during func mob around room using LRD PRN at mod I Short Term Goal 2: demo ADL UB bathing/dressing activity at (I) Short Term Goal 3: demo ADL LB bathing/dressing activity at Mod I, while sitting/standing as activity requires Short Term Goal 4: demo all bed mobility, including rolling, using bedrails PRN at mod I Short Term Goal 5: demo standing during func activity for 10 min+ using LRD PRN, no seated rest breaks, and mod I Therapy Time Individual Concurrent Group Co-treatment Time In 1437 Time Out 1503 Minutes 26 Timed Code Treatment Minutes: 26 Minutes Chalino Damian OTR/L * Ynes Worthy, PT - 04/25/2023 2:13 PM EST Physical Therapy Facility/Department: [facility] RENAL//MED SURG Physical Therapy Initial Assessment Name: Elizabeth Hull Kimberley : 1965 Date of Service: 04/25/2023 Chief Complaint Patient presents with Shortness of Breath Loss of Consciousness S/p thrombectomy\ The patient is a 57 y.o. female who is admitted to the hospital for acute pulmonary embolism. She underwent right knee replacement 2 weeks prior and she was in the rehab. She presented with dizzinessand lightheadedness. She was transferred to emergency room with chest pressure. She was found to have acute pulmonary embolism with right heart strain. Vascular were consulted and she underwent mechanical thrombectomy. Seizure disorder , cognitive delay, post rigth TKA, chronic urinary incontinence. Discharge Recommendations: Patient would benefit from continued therapy after discharge PT Equipment Recommendations Equipment Needed: No Other: recommend use of RW with all gait and transfers Patient Diagnosis(es): The primary encounter diagnosis was Pulmonary embolism (HCC). A diagnosis ofAcute saddle pulmonary embolism without acute cor pulmonale (HCC) was also pertinent to this visit. Past Medical History: has a past medical history of Mental developmental delay, Osteoarthritis, Seasonal allergies, and Seizure disorder (HCC). Past Surgical History: has a past surgical history that includes vascular surgery (N/A, 04/21/2023)and Total knee arthroplasty (Right). Assessment Body Structures, Functions, Activity Limitations Requiring Skilled Therapeutic Intervention: Decreased functional mobility ;Decreased tolerance to work activity;Decreased strength;Decreased endurance;Decreased balance;Increased pain Assessment: Pt presents with gait, balance and general weakness, recent rigth TKA and pain limitingfunctional mobilty. Pt able to complete bed mobilty with mod I, sit <> stand with CGA, ambulae ~ 25 ft with RW. Pt will continue to benefit from PT intervention to progress functional abilty and mobility needed to regain prior level of safety and function Therapy Prognosis: Good Decision Making: Medium Complexity Requires PT Follow-Up: Yes Activity Tolerance Activity Tolerance: Patient tolerated evaluation without incident Plan Physical Therapy Plan General Plan: (5-6x /wk) Current Treatment Recommendations: Strengthening, Balance training, Functional mobility training, Transfer training, Endurance training, Gait training, Stair training, Neuromuscular re-education, Therapeutic activities Safety Devices Type of Devices: All fall risk precautions in place, All sherlyn prominences offloaded, Gait belt, Patient at risk for falls, Left in bed, Nurse notified Restraints Restraints Initially in Place: No Restrictions Restrictions/Precautions Restrictions/Precautions: Fall Risk, General Precautions, Bed Alarm, Up as Tolerated Required Braces or Orthoses?: No Position Activity Restriction Other position/activity restrictions: Up with assist , recent TKA, OLBO hose, or Amanda wraps (nursing to address) Subjective General Chart Reviewed: Yes Patient assessed for rehabilitation services?: Yes Additional Pertinent Hx: The patient is a 57 y.o. female who is admitted to the hospital for acute pulmonary embolism. She underwent right knee replacement 2 weeks prior and she was in the rehab. Shepresented with dizziness and lightheadedness. She was transferred to emergency room with chest pressure. She was found to have acute pulmonary embolism with right heart strain. Vascular were consulted and she underwent mechanical thrombectomy. Response To Previous Treatment: Not applicable Family / Caregiver Present: No Follows Commands: Within Functional Limits Other (Comment): Pt is awake and alert in agreement with PT intervention., Okay per RN to see General Comment Comments: Pt report admitted from rehab for Rigth TKA states progressing with gait and transfers and walking longer distances. Subjective Subjective: 05/29 rigth knee pain Social/Functional History Social/Functional History Lives With: Alone Type of Home: House Home Layout: One level Home Access: Level entry Bathroom Shower/Tub: Shower chair without back Bathroom Toilet: Standard Bathroom Equipment: Grab bars in shower Bathroom Accessibility: Accessible Has the patient had two or more falls in the past year or any fall with injury in the past year?: No Receives Help From: Family ADL Assistance: Independent Homemaking Assistance: Independent Homemaking Responsibilities: Yes Meal Prep Responsibility: Primary Laundry Responsibility: Primary Cleaning Responsibility: Primary Bill Paying/Finance Responsibility: Primary Shopping Responsibility: Primary Dependent Care Responsibility: Primary Health Care Management: Primary Other (Comment): sister in law assist with groceries Ambulation Assistance: Independent Transfer Assistance: Independent Active County Auditor: No Patient's County Auditor Info: sister in law Mode of Transportation: Car 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 Leisure & Hobbies: playing with cat, goes to [employer] Vision/Hearing Vision Vision: Impaired Vision Exceptions: Wears glasses for distance Hearing Hearing: Within functional limits Cognition Orientation Overall Orientation Status: Within Normal Limits Orientation Level: Oriented X4;Oriented to place;Oriented to time;Oriented to situation Cognition Overall Cognitive Status: WNL Objective Pulse: 86 BP: 116/75 MAP (Calculated): 89 Respirations: 18 SpO2: 95 % O2 Device: Nasal cannula Temp: 97.7 F (36.5 C) Observation/Palpation Posture: Good Observation: Pt demonstrate erect sitting and standing posure with midline symmetry Scar: Right knee surgical incision with jeffery in place Gross Assessment AROM: Within functional limits PROM: Within functional limits Strength: Within functional limits Coordination: Within functional limits Tone: Normal Sensation: Intact AROM RLE (degrees) RLE AROM: Exceptions RLE General AROM: -5to 85 degrees flexion Strength RLE Strength RLE: Exception Comment: grossly 3+/5 knee flexion Strength LLE Strength LLE: WFL Strength RUE Strength RUE: WFL Strength LUE Strength LUE: WFL Bed mobility Bridging: Supervision Rolling to Left: Supervision Rolling to Right: Supervision Supine to Sit: Supervision Sit to Supine: Supervision Scooting: Supervision Transfers Sit to Stand: Stand by assistance Stand to Sit: Stand by assistance Bed to Chair: Contact guard assistance Ambulation Surface: Level tile Device: Rolling Walker Other Apparatus: O2 Assistance: Contact guard assistance Quality of Gait: antelgic gait Gait Deviations: Slow Kathleen;Decreased step length;Decreased step height Distance: ~25 ft Balance Posture: Good Sitting - Static: Good Sitting - Dynamic: Good Standing - Static: Good;- Standing - Dynamic: Fair;- Comments: Pt demonstrate antelgic gait with decreased step length Exercise Treatment: rigth knee AROM -5-75 degrees flexion, review supine /sitting ROM exercises x 5-8 each with focus on tolerance and technique caution taken due to post procedure grion site [facility] Basic Mobility - Inpatient How much help is needed turning from your back to your side while in a flat bed without using bedrails?: None How much help is needed moving from lying on your back to sitting on the side of a flat bed withoutusing bedrails?: None How much help is needed moving to and from a bed to a chair?: None How much help is needed standing up from a chair using your arms?: A Little How much help is needed walking in hospital room?: A Little How much help is needed climbing 3-5 steps with a railing?: A Little [facility] Inpatient Mobility Raw Score : 21 [facility] Inpatient T-Scale Score : 50.25 Mobility Inpatient [facility] 0-100% Score: 28.97 Mobility Inpatient [facility] G-Code Modifier : CJ Goals Short Term Goals Time Frame for Short Term Goals: 14 visits Short Term Goal 1: Pt to ambulate 200 ft mod I with least RW Short Term Goal 2: Pt to transfer from alternate surface heights with Mod I demonstrating safety with AD Short Term Goal 3: Pt to ascend/descend 4 steps with Mod I and rigth railing Short Term Goal 4: Pt to be provided verbal, written and practical instruction in bilateral LE ROM exercises to improve general strength and prevent functional decline in mobilty Patient Goals Patient Goals : To return home Education Patient Education Education Given To: Patient Education Provided: Role of Therapy;Plan of Care;Precautions;Family Education;Fall Prevention Strategies;Transfer Training Education Method: Demonstration;Verbal Barriers to Learning: None Education Outcome: Verbalized understanding;Demonstrated understanding Therapy Time Individual Concurrent Group Co-treatment Time In 1225 Time Out 1310 Minutes 45 Timed Code Treatment Minutes: 31 Minutes Ynes Worthy PT, DPT * Nadia Mcdonald MD - 04/24/2023 9:35 PM EST Images from the original note were not included. Today's Date: 04/24/2023 Patient Name: Elizabeth Sánchez Date of admission: 04/21/2023 2:29 PM Patient's age: 57 y.o., 1965 Admission Dx: Pulmonary embolism (HCC) [I26.99] Acute saddle pulmonary embolism without acute cor pulmonale (HCC) [I26.92] Reason for Consult: management recommendations Requesting Physician: Abhinav Gonzales MD CHIEF COMPLAINT: Acute pulmonary embolism SUBJECTIVE: . Patient was seen and examined. She is clinically stable. No chest pain. No hemoptysis. No shortness of breath. No leg pain or swelling. Started on Coumadin. INR today is 1.1. BRIEF CASE HISTORY: The patient is a 57 y.o. female who is admitted to the hospital for acute pulmonary embolism. She underwent right knee replacement 2 weeks prior and she was in the rehab. She presented with dizzinessand lightheadedness. She was transferred to emergency room with chest pressure. She was found to have acute pulmonary embolism with right heart strain. Vascular were consulted and she underwent mechanical thrombectomy. After that, she was started on anticoagulation with heparin The patient has history of cognitive difficulty. Seizure disorder Past Medical History: has a past medical history of Mental developmental delay, Osteoarthritis, Seasonal allergies, and Seizure disorder (HCC). Past Surgical History: has a past surgical history that includes vascular surgery (N/A, 04/21/2023)and Total knee arthroplasty (Right). Medications: Reviewed in [facility] including carbamazepine Allergies: Dilantin [phenytoin] Social History: reports that she has never smoked. She has never been exposed to tobacco smoke. Shehas never used smokeless tobacco. She reports that she does not currently use alcohol. She reports that she does not use drugs. Family History: family history includes Cancer in her mother; Diabetes in her father; Heart Failurein her father; Other in her brother and mother; Stroke in her mother. REVIEW OF SYSTEMS: Constitutional: No fever or chills. No night sweats, no weight loss Eyes: No eye discharge, double vision, or eye pain HEENT: negative for sore mouth, sore throat, hoarseness and voice change Respiratory: Chest pressure and shortness of breath improved significantly Cardiovascular: negative for chest pain, dyspnea, palpitations, orthopnea, PND Gastrointestinal: negative for nausea, vomiting, diarrhea, constipation, abdominal pain, Dysphagia,hematemesis and hematochezia Genitourinary: negative for frequency, dysuria, nocturia, urinary incontinence, and hematuria Integument: negative for rash, skin lesions, bruises. Hematologic/Lymphatic: negative for easy bruising, bleeding, lymphadenopathy, or petechiae Endocrine: negative for heat or cold intolerance,weight changes, change in bowel habits and hair loss Musculoskeletal: negative for myalgias, arthralgias, pain, joint swelling,and bone pain Neurological: negative for headaches, she states that she does not feel dizzy. She has a previous history of seizure disorder but nothing recently acute pulmonary embolism, provoked postoperative PHYSICAL EXAM: BP 129/71 Pulse 81 Temp 98.2 F (36.8 C) (Oral) Resp 16 Ht 1.778 m (5' 10 ) Wt 107.1 kg (236 lb 2 oz) SpO2 97% BMI 33.88 kg/m Temp (24hrs), Av F (36.7 C), Min:97.7 F (36.5 C), Max:98.2 F (36.8 C) General appearance - well appearing, no in pain or distress Mental status - alert and cooperative Eyes - pupils equal and reactive, extraocular eye movements intact Ears - bilateral TM's and external ear canals normal Mouth - mucous membranes moist, pharynx normal without lesions Neck - supple, no significant adenopathy Lymphatics - no palpable lymphadenopathy, no hepatosplenomegaly Chest - clear to auscultation, no wheezes, rales or rhonchi, symmetric air entry Heart - normal rate, regular rhythm, normal S1, S2, no murmurs Abdomen - soft, nontender, nondistended, no masses or organomegaly Neurological - alert, oriented, normal speech, no focal findings or movement disorder noted Musculoskeletal - no joint tenderness, deformity or swelling Extremities - peripheral pulses normal, no pedal edema, no clubbing or cyanosis Skin - normal coloration and turgor, no rashes, no suspicious skin lesions noted , DATA: Labs: CBC: Recent Labs 04/23/23 0551 04/24/23 0710 WBC 4.8 4.2 HGB 8.6* 9.3* HCT 27.7* 29.7* PLT 296 350 BMP: Recent Labs 04/23/23 0551 04/24/23 0710 NA 138 138 K 3.8 4.2 CO2 25 24 BUN 12 10 CREATININE 0.6 0.5 LABGLOM >60 >60 GLUCOSE 113* 116* PT/INR: Recent Labs 04/23/23 1522 04/24/23 0710 PROTIME 16.8* 14.1 INR 1.4 1.1 IMAGING DATA: Primary Problem Acute saddle pulmonary embolism without acute cor pulmonale (HCC) Active Hospital Problems Diagnosis Date Noted Acute deep vein thrombosis (DVT) (HCC) [I82.409] 04/22/2023 Obesity (BMI 30.0-34.9) [E66.9] 04/22/2023 Acute hypoxic respiratory failure (HCC) [J96.01] 04/22/2023 Seizure disorder (HCC) [G40.909] 04/22/2023 Syncope [R55] 04/22/2023 Acute saddle pulmonary embolism without acute cor pulmonale (HCC) [I26.92] 04/21/2023 IMPRESSION: Acute DVT/pulmonary embolism, provoked after knee surgery Recent knee surgery History of seizure disorder Status post mechanical thrombectomy RECOMMENDATIONS: Status post mechanical thrombectomy Agree with anticoagulation, she is currently on heparin Because of vascular disorder on carbamazepine, there is a drug interaction with oral anticoagulantsincluding Van Jorge on warfarin. However, the warfarin can be monitored through INR so it might be the safest option. Another option is to change the carbamazepine to a different seizure medication and that we will open the door for DOAC Started on warfarin. Monitor INR. Target INR 2-3. We will follow with you. Duration of anticoagulation is likely 6 months since this is a provoked thrombus. However, we will finalize decision depending on her status at 6-month No need for hypercoagulable workup right now. We will determine the need as an outpatient Nadia Lund MD [facility] This note is created with the assistance of a speech recognition program. While intending to generate a document that actually reflects the content of the visit, the document can still have some errors including those of syntax and sound a like substitutions which may escape proof reading. It such instances, actual meaning can be extrapolated by contextual diversion. * Darryn Michelle [facility] - 04/24/2023 12:51 PM EST Pharmacy Note Warfarin Consult follow-up Recent Labs 04/24/23 0710 INR 1.1 Recent Labs 04/22/23 0715 04/23/23 0551 04/24/23 0710 HGB 8.5* 8.6* 9.3* HCT 27.2* 27.7* 29.7* PLT 248 296 350 Significant Drug-Drug Interactions: none Notes: Date INR Dose 04/23/2023 1.4 Warfarin 10mg 04/24/2023 1.1 Warfarin 10mg Daily PT/INR while inpatient. * Ismael Reynolds MD - 04/24/2023 7:56 AM EST Images from the original note were not included. [facility] Office: [phone] Reggie Barrera DO, Darin Forman DO, Werner Parra DO, Ramses Fish DO, Wanda Montgomery MD, Rosa Elena Schwartz MD, Vani Hsu MD, Katie Stallings MD, Narinder Maki MD, Katerina Christy MD, Jorge A Seaman MD, Rayo Escobedo DO, Trav Burnett MD, Tevin Castillo MD, Nola Barrera DO, Demetria Elmore MD, Vinay Juarez DO, Kamilah Finney MD, Kinsey Gonzales MD, Candis Carrera MD, Ivelisse De Luna MD, Trent Cooley MD, Trung Cr MD, Kt Brown MD, Antony Rodriguez MD, Yon Guerrero MD, Elizabeth Younger MD, Kyle Rodriguez, DO, Je Munguia, DO, Nathalia Brooke MD, Isaak Padilla MD, Lissette Rodriguez, BEAM SAW OPERATOR, Elizabeth Bryant, BEAM SAW OPERATOR, Tino Lr, BEAM SAW OPERATOR, Leticia Zuniga, [facility],Kim Hammer, BEAM SAW OPERATOR, Rebekah Vásquez, BEAM SAW OPERATOR, Steph Ly, BEAM SAW OPERATOR, Maryanne Oh, BEAM SAW OPERATOR, Laly Navarro, BEAM SAW OPERATOR, Jennifer Souza PATylerC, Desi Gann PATylerC, Nidia Montgomery, BEAM SAW OPERATOR, Palmira Gonzales, BIOINFORMATICS SCIENTIST, Valery Gary, BEAM SAW OPERATOR, Margoth Ackerman, BEAM SAW OPERATOR, Ricarda Shelby, BEAM SAW OPERATOR [facility] IN-PATIENT SERVICE [facility] Progress Note 04/24/2023 7:56 AM Name: Elizabeth Sánchez Acct: [id number] Room: [address] [place] [address] Day: 3 Admit Date: 04/21/2023 2:29 PM PCP: No primary care provider on file. Code Status: Full Code Subjective: C/C: Chief Complaint Patient presents with Shortness of Breath Loss of Consciousness Interval History Status: improved. No overnight events documented Remained afebrile, hemodynamicly stable on home 2L Labs are pending results, thus far Hgb remains stable, INR 1.4 CXR from last night unrevealing Evaluate why seizure medication on hold, consider resuming, DC planning-brother is POA Denies any new or worsening symptoms from baseline. Brief History: Presented with sob , found to have saddle PE. Admitted to icu, stablized with endovascular intervention. Downgraded to medical floor on 04/24/23. Has remained stable but prominent weakness. No signs ofheart strain. Doing well on room air. Patient was from rehab NH and wants to go home. She doesn't feel she needs NH needs but brother is POA and feels she does. She denies sob, cp. Denies bleeding hxor VTE hx. She's incontience at baseline but denies any new or wosening symptoms. She reports compliance with seizure meds, due to medication adverse effects, only coumadin can be given as per pharmacy. Pharamcy to dose. Will need family discussion and hematology consult. Vascular okay with discahrge. Patient denies any other symptoms Review of Systems: Constitutional: negative for chills, fevers, sweats Respiratory: negative for cough, dyspnea on exertion, shortness of breath, wheezing Cardiovascular: negative for chest pain, chest pressure/discomfort, lower extremity edema, palpitations Gastrointestinal: negative for abdominal pain, constipation, diarrhea, nausea, vomiting Neurological: negative for dizziness, headache Medications: Allergies: Allergies Allergen Reactions Dilantin [Phenytoin] Current Meds: Scheduled Meds: warfarin placeholder: dosing by pharmacy Other RX Placeholder pantoprazole 40 mg Oral QAM AC [Held by provider] carBAMazepine 200 mg Oral TID docusate sodium 100 mg Oral BID cetirizine 10 mg Oral Daily sertraline 25 mg Oral Daily guaiFENesin 1,200 mg Oral BID montelukast 10 mg Oral Nightly sodium chloride flush 5-40 mL IntraVENous 2 times per day Continuous Infusions: sodium chloride PRN Meds: heparin (porcine), heparin (porcine), sodium chloride flush, sodium chloride, potassium chloride OR potassium chloride, magnesium sulfate, ondansetron OR ondansetron, polyethylene glycol, acetaminophen OR acetaminophen Data: Past Medical History: has a past medical history of Mental developmental delay, Osteoarthritis, Seasonal allergies, and Seizure disorder (HCC). Social History: reports that she has never smoked. She has never been exposed to tobacco smoke. Shehas never used smokeless tobacco. She reports that she does not currently use alcohol. She reports that she does not use drugs. Family History: Family History Problem Relation Age of Onset Cancer Mother Stroke Mother Other Mother Heart Failure Father Diabetes Father Other Brother Vitals: BP (!) 144/66 Pulse 72 Temp 98.2 F (36.8 C) (Oral) Resp 16 Ht 1.778 m (5' 10 ) Wt 107.1 kg (236 lb 2 oz) SpO2 95% BMI 33.88 kg/m Temp (24hrs), Av.1 F (36.7 C), Min:98 F (36.7 C), Max:98.2 F (36.8 C) No results for input(s): POCGLU in the last 72 hours. I/O (24Hr): No intake or output data in the 24 hours ending 04/24/23 0756 Labs: Hematology: Recent Labs 04/21/23 1512 04/22/23 0715 04/23/23 0551 04/23/23 1522 04/24/23 0710 WBC 8.0 5.8 4.8 -- 4.2 RBC 3.11* 2.80* 2.80* -- 3.04* HGB 9.4* 8.5* 8.6* -- 9.3* HCT 30.2* 27.2* 27.7* -- 29.7* MCV 97.1 97.1 98.9 -- 97.7 MCH 30.2 30.4 30.7 -- 30.6 MCHC 31.1 31.3 31.0 -- 31.3 RDW 14.2 14.0 14.0 -- 13.9 PLT 284 248 296 -- 350 MPV 9.3 9.5 9.3 -- 9.0 INR 1.4 -- -- 1.4 -- Chemistry: Recent Labs 04/21/23 1512 04/21/23 1613 04/22/23 0715 04/22/23 1139 04/22/23 1757 04/23/23 0551 NA 134* -- 136 -- -- 138 K 4.1 -- 4.0 -- -- 3.8 CL 99 -- 101 -- -- 104 CO2 25 -- 27 -- -- 25 GLUCOSE 145* -- 136* -- -- 113* BUN 14 -- 11 -- -- 12 CREATININE 0.7 -- 0.5 -- -- 0.6 ANIONGAP 10 -- 8* -- -- 9 LABGLOM >60 -- >60 -- -- >60 CALCIUM 8.4* -- 8.2* -- -- 8.3* PROBNP 367* -- -- -- -- -- TROPHS 573* < > 178* 144* 121* -- < > = values in this interval not displayed. Recent Labs 04/21/23 1512 PROT 6.0* LABALBU 3.5 AST 28 ALT 20 ALKPHOS 118* BILITOT 0.3 ABG:No results found for: POCPH , PHART , PH , POCPCO2 , JGB1XAK , PCO2 , POCPO2 , PO2ART , PO2 , POCHCO3 , NSB5JQP , HCO3 , NBEA , PBEA , BEART , BE , THGBART , THB , LQN6FOC , FOAX2LQT , U4NCKNWW , O2SAT , FIO2 No results found for: SPECIAL No results found for: CULTURE Radiology: No results found. Physical Examination: General appearance: alert, cooperative and no distress Mental Status: oriented to person, place and time and normal affect Lungs: clear to auscultation bilaterally, normal effort Heart: regular rate and rhythm, no murmur Abdomen: soft, nontender, nondistended, normal bowel sounds, no masses, hepatomegaly, splenomegaly Extremities: no edema, redness, tenderness in the calves Skin: no gross lesions, rashes, induration Assessment: Hospital Problems Last Modified POA * (Principal) Acute saddle pulmonary embolism without acute cor pulmonale (HCC) 04/21/2023 Yes Acute deep vein thrombosis (DVT) (HCC) 04/22/2023 Yes Obesity (BMI 30.0-34.9) 04/22/2023 Yes Acute hypoxic respiratory failure (HCC) 04/22/2023 Yes Seizure disorder (HCC) 04/22/2023 Yes Syncope 04/22/2023 Yes #DC planning -patient wanted to go home. Poor METs status. Came from SNF post surgery. Brother is POA. Resume seizure med and bridge with coumadin given drug interaction btw carbamexapine and DOAC. Case mgt recs appreciated. #Saddle PE #DVT -s/p pulm artery thrombectomy. -stable and downgraded from ICU. Plan to transition to oral. Given seizure hx.mediucation side effects will need to bridge with coumadin. Pharmacy to dose, daily INR. Willn eed to get set up with coumadin clinic. -denies cp, sob, abdominal pain. Hgb stable. On room air, no signs of active heart strain. Continuetele. -recent right TKA 2 weeks ago but at baseline is bedbound from my understanding. Concern for VTE now and in future. Will consult hematology about lifelong vs 3-6 month of AC? -phramcy to dose, daily INR, monitor liver function -Discharge planning-->POA wants NH but patient wants to go home -case mgt to set up coumadin clinic , iNR checks before discharge -vascular signed off. #Seizure disorder -on carbamazapine, held, will need to evaluate and resume -compliant, no recent seizure activity reported -DOACs have drug interaction with seizure med, will need to use coumadin -seizure precautions, monitor level #Cognitive Delay -Ao3 when seen , poor insight, brother POTeressa, severity unknown #chronic urinary incontience -denies urinary symptoms, reports chronic incontience, not on any home meds, will continue to monitor -resume home medication #post Right TKA -continue ptot -Wound care monitoring -neurovascular checks * Sourav Mak [facility] - 04/23/2023 3:56 PM EST Pharmacy Note Warfarin Consult Elizabeth Sánchez is a 57 y.o. female for whom pharmacy has been consulted to manage warfarin therapy. Consulting Physician: Dr. Reynolds Reason for Admission: PE Warfarin dose prior to admission: none Warfarin indication: PE Target INR range: 2-3 Past Medical History: Diagnosis Date Mental developmental delay Osteoarthritis Seasonal allergies Seizure disorder (HCC) Recent Labs 04/23/23 1522 INR 1.4 Recent Labs 04/21/23 1512 04/22/23 0715 04/23/23 0551 HGB 9.4* 8.5* 8.6* HCT 30.2* 27.2* 27.7* PLT 284 248 296 Current warfarin drug-drug interactions: Date INR Dose 04/23/2023 1.4 Warfarin 10mg Thank you for the consult. Will continue to follow. -Sourav Mak PharmD, BCPS 04/23/2023 3:56 PM * Ismael Reynolds MD - 04/23/2023 8:50 AM EST Images from the original note were not included. [facility] Office: [phone] Reggie Barrera DO, Darin Forman DO, Werner Parra DO, Ramses Fish DO, Wanda Montgomery MD, Rosa Elena Schwartz MD, Vani Hsu MD, Katie Stallings MD, Narinder Maki MD, Katerina Christy MD, Jorge A Seaman MD, Rayo Escobedo DO, Trav Burnett MD, Tevin Castillo MD, Nola Barrera DO, Demetria Elmore MD, Vinay Juarez DO, Kamilah Finney MD, Kinsey Gonzales MD, Candis Carrera MD, Ivelisse De Luna MD, Trent Cooley MD, Trung Cr MD, Kt Brown MD, Antony Rodriguez MD, Yon Guerrero MD, Elizabeth Younger MD, Kyle Rodriguez DO, Je Munguia DO, Nathalia Brooke MD, Isaak Padilla MD, Lissette Rodriguez, ANY, Elizabeth Bryant, BEAM SAW OPERATOR, Tino Lr, BEAM SAW OPERATOR, Leticia Zuniga, RUDDY,Kim Hammer, BEAM SAW OPERATOR, Rebekah Vásquez, BEAM SAW OPERATOR, Steph Ly BEAM SAW OPERATOR, Maryanne Oh, BEAM SAW OPERATOR, Laly Navarro, BEAM SAW OPERATOR, Jennifer Souza, PA-C, Desi Gann PA-C, Nidia Montgomery, BEAM SAW OPERATOR, Palmira Gonzales, BIOINFORMATICS SCIENTIST, Valery Gary, BEAM SAW OPERATOR, Margoth Ackerman, BEAM SAW OPERATOR, Ricarda Shelby, BEAM SAW OPERATOR [facility] IN-PATIENT SERVICE [facility] CONSULTATION / HISTORY AND PHYSICAL EXAMINATION Date: 04/23/2023 Patient name: Elizabeth Sánchez Date of admission: 04/21/2023 2:29 PM Account: [id number] Date of : 1965 PCP: No primary care provider on file. Room: [address] [place] [address] Code Status: Full Code Physician Requesting Consult: Ismael Reynolds MD Reason for Consult: downt Chief Complaint: SOB Downgraded to medical floor for PE. Stable. No signs of heart strain. Doing well on room air. Patient was from rehab NH and wants to go home. She doesn't feel she needs NH needs but brother is POA and feels she does. She denies sob, cp. Denies bleeding hx or VTE hx. She's incontience at baseline but denies any new or wosening symptoms. She reports compliance with seizure meds, due to medication adverse effects, only coumadin can be given as per pharmacy. Pharamcy to dose. Will need family discussion and hematology consult. Vascular okay with discahrge. Patient denies any other symptoms Past Medical History: Past Medical History: Diagnosis Date Mental developmental delay Osteoarthritis Seasonal allergies Seizure disorder (HCC) Past Surgical History: Past Surgical History: Procedure Laterality Date TOTAL KNEE ARTHROPLASTY Right VASCULAR SURGERY N/A 04/21/2023 INARI- MECHANICAL THROMBECTOMY performed by Luisito Pinzon MD at [facility] Medications Prior to Admission: Prior to Admission medications Medication Sig Start Date End Date Taking? Authorizing Provider calcium carbonate (TUMS) 500 MG chewable tablet Take 1 tablet by mouth daily Yes Oren Hamilton MD carBAMazepine (TEGRETOL XR) 200 MG extended release tablet Take 1 tablet by mouth daily Yes ProviderOren MD cetirizine (ZYRTEC) 10 MG tablet Take 1 tablet by mouth daily as needed for Allergies Yes Oren Hamilton MD vitamin D (CHOLECALCIFEROL) 25 MCG (1000 UT) TABS tablet Take 2 tablets by mouth daily Yes Oren Hamilton MD famotidine (PEPCID) 20 MG tablet Take 1 tablet by mouth 2 times daily Yes Oren Hamilton MD montelukast (SINGULAIR) 10 MG tablet Take 1 tablet by mouth nightly Yes Oren Hamilton MD potassium chloride (MICRO-K) 10 MEQ extended release capsule Take 1 capsule by mouth daily Yes Oren Hamilton MD sertraline (ZOLOFT) 25 MG tablet Take 1 tablet by mouth daily Yes Oren Hamilton MD amoxicillin (AMOXIL) 500 MG capsule Take 1 capsule by mouth 3 times daily Yes Oren Hamilton MD aspirin 325 MG EC tablet Take 1 tablet by mouth daily Yes Oren Hamilton MD docusate sodium (COLACE) 100 MG capsule Take 1 capsule by mouth 2 times daily Yes Oren Hamilton MD guaiFENesin (MUCINEX) 600 MG extended release tablet Take 2 tablets by mouth 2 times daily Yes Provider, MD Oren ondansetron (ZOFRAN) 4 MG tablet Take 1 tablet by mouth every 4 hours as needed for Nausea or Vomiting Yes Provider, HistoricalMD oxyCODONE-acetaminophen (PERCOCET) 5-325 MG per tablet Take 1 tablet by mouth every 6 hours as needed for Pain. Max Daily Amount: 4 tablets Yes Provider, MD Oren Allergies: Dilantin [phenytoin] Social History: Tobacco: reports that she has never smoked. She has never been exposed to tobacco smoke. She has never used smokeless tobacco. Alcohol: reports that she does not currently use alcohol. Drug Use: reports no history of drug use. Family History: Family History Problem Relation Age of Onset Cancer Mother Stroke Mother Other Mother Heart Failure Father Diabetes Father Other Brother Review of Systems: Positive and Negative as described in HPI. CONSTITUTIONAL: negative for fevers, chills, sweats, fatigue, weight loss HEENT: negative for vision, hearing changes, runny nose, throat pain RESPIRATORY: negative for shortness of breath, cough, congestion, wheezing. CARDIOVASCULAR: negative for chest pain, palpitations. GASTROINTESTINAL: negative for nausea, vomiting, diarrhea, constipation, change in bowel habits, abdominal pain GENITOURINARY: negative for difficulty of urination, burning with urination, frequency INTEGUMENT: negative for rash, skin lesions, easy bruising HEMATOLOGIC/LYMPHATIC: negative for swelling/edema ALLERGIC/IMMUNOLOGIC: negative for urticaria , itching ENDOCRINE: negative increase in drinking, increase in urination, hot or cold intolerance MUSCULOSKELETAL: negative joint pains, muscle aches, swelling of joints NEUROLOGICAL: negative for headaches, dizziness, lightheadedness, numbness, pain, tingling extremities BEHAVIOR/PSYCH: negative for depression, anxiety Physical Exam: BP 131/60 Pulse 72 Temp 98.6 F (37 C) (Oral) Resp 18 Ht 1.778 m (5' 10 ) Wt 106.1 kg (234lb) SpO2 96% BMI 33.58 kg/m Temp (24hrs), Av.6 F (37 C), Min:98.4 F (36.9 C), Max:98.7 F (37.1 C) No results for input(s): POCGLU in the last 72 hours. Intake/Output Summary (Last 24 hours) at 04/23/2023 0850 Last data filed at 04/22/2023 1223 Gross per 24 hour Intake 62.07 ml Output -- Net 62.07 ml General Appearance: alert, well appearing, and in no acute distress Mental status: oriented to person, place, and time with normal affect Head: normocephalic, atraumatic. Eye: no icterus, redness, pupils equal and reactive, extraocular eye movements intact, conjunctiva clear Ear: normal external ear, no discharge, hearing intact Nose: no drainage noted Mouth: mucous membranes moist Neck: supple, no carotid bruits, thyroid not palpable Lungs: Bilateral equal air entry, clear to ausculation, no wheezing, rales or rhonchi, normal effort Cardiovascular: normal rate, regular rhythm, no murmur, gallop, rub. Abdomen: Soft, nontender, nondistended, normal bowel sounds, no hepatomegaly or splenomegaly Neurologic: There are no new focal motor or sensory deficits, normal muscle tone and bulk, no abnormal sensation, normal speech, cranial nerves II through XII grossly intact Skin: No gross lesions, rashes, bruising or bleeding on exposed skin area Extremities: peripheral pulses palpable, no pedal edema or calf pain with palpation Psych: normal affect Investigations: Laboratory Testing: Recent Results (from the past 24 hour(s)) Echo (TTE) complete (PRN contrast/bubble/strain/3D) Collection Time: 04/22/23 10:25 AM Result Value Ref Range LV EDV A2C 59 mL LV EDV A4C 76 mL LV ESV A2C 24 mL LV ESV A4C 23 mL IVSd 1.0 (A) 0.6 - 0.9 cm LVIDd 4.4 3.9 - 5.3 cm LVIDs 3.6 cm LVOT Diameter 2.0 cm LVOT Mean Gradient 2 mmHg LVOT VTI 17.2 cm LVOT Peak Velocity 1.0 m/s LVOT Peak Gradient 4 mmHg LVPWd 1.0 (A) 0.6 - 0.9 cm LV E' Lateral Velocity 13 cm/s LV E' Septal Velocity 11 cm/s LV Ejection Fraction A2C 60 % LV Ejection Fraction A4C 70 % EF BP 65 55 - 100 % LVOT Area 3.1 cm2 LVOT SV 54.0 ml LA Minor Henefer 5.0 cm LA Major Henefer 5.8 cm LA Area 2C 14.4 cm2 LA Area 4C 15.7 cm2 LA Volume MOD A2C 34 22 - 52 mL LA Volume MOD A4C 34 22 - 52 mL LA Volume BP 36 22 - 52 mL LA Diameter 3.4 cm AV Mean Gradient 4 mmHg AV VTI 24.0 cm AV Mean Velocity 0.9 m/s AV Peak Velocity 1.5 m/s AV Peak Gradient 8 mmHg AV Area by VTI 2.3 cm2 AV Area by Peak Velocity 2.2 cm2 Aortic Root 3.0 cm MV E Wave Deceleration Time 204.0 ms MV A Velocity 0.78 m/s MV E Velocity 0.66 m/s MV Mean Gradient 1 mmHg MV VTI 23.1 cm MV Mean Velocity 0.5 m/s MV Max Velocity 0.9 m/s MV Peak Gradient 3 mmHg MV Area by VTI 2.3 cm2 PV Max Velocity 0.9 m/s PV Peak Gradient 3 mmHg RV Basal Dimension 3.7 cm RV Free Wall Peak S' 11 cm/s TAPSE 1.7 1.7 cm Body Surface Area 2.29 m2 Fractional Shortening 2D 18 28 - 44 % LV ESV Index A4C 10 mL/m2 LV EDV Index A4C 34 mL/m2 LV ESV Index A2C 11 mL/m2 LV EDV Index A2C 26 mL/m2 LVIDd Index 1.97 cm/m2 LVIDs Index 1.61 cm/m2 LV RWT Ratio 0.45 LV Mass 2D 147.8 67 - 162 g LV Mass 2D Index 66.3 43 - 95 g/m2 MV E/A 0.85 E/E' Ratio (Averaged) 5.54 E/E' Lateral 5.08 LA Volume Index BP 16 16 - 34 ml/m2 LVOT Stroke Volume Index 24.2 mL/m2 LA Volume Index MOD A2C 15 (A) 16 - 34 ml/m2 LA Volume Index MOD A4C 15 (A) 16 - 34 ml/m2 LA Size Index 1.52 cm/m2 LA/AO Root Ratio 1.13 Ao Root Index 1.35 cm/m2 AV Velocity Ratio 0.67 LVOT:AV VTI Index 0.72 DEMETRIUS/BSA VTI 1.0 cm2/m2 DEMETRIUS/BSA Peak Velocity 1.0 cm2/m2 MV:LVOT VTI Index 1.34 Troponin Collection Time: 04/22/23 11:39 AM Result Value Ref Range Troponin, High Sensitivity 144 (HH) 0 - 14 ng/L Anti-Xa, Unfractionated Heparin Collection Time: 04/22/23 3:25 PM Result Value Ref Range Anti-XA Unfrac Heparin 0.33 IU/L Troponin Collection Time: 04/22/23 5:57 PM Result Value Ref Range Troponin, High Sensitivity 121 (HH) 0 - 14 ng/L CBC with Auto Differential Collection Time: 04/23/23 5:51 AM Result Value Ref Range WBC 4.8 3.5 - 11.3 k/uL RBC 2.80 (L) 3.95 - 5.11 m/uL Hemoglobin 8.6 (L) 11.9 - 15.1 g/dL Hematocrit 27.7 (L) 36.3 - 47.1 % MCV 98.9 82.6 - 102.9 fL MCH 30.7 25.2 - 33.5 pg MCHC 31.0 28.4 - 34.8 g/dL RDW 14.0 11.8 - 14.4 % Platelets 296 138 - 453 k/uL MPV 9.3 8.1 - 13.5 fL NRBC Automated 0.0 0.0 per 100 WBC Neutrophils % 63 36 - 65 % Lymphocytes % 23 (L) 24 - 43 % Monocytes % 13 (H) 3 - 12 % Eosinophils % 0 (L) 1 - 4 % Basophils % 0 0 - 2 % Immature Granulocytes 1 (H) 0 % Neutrophils Absolute 3.01 1.50 - 8.10 k/uL Lymphocytes Absolute 1.12 1.10 - 3.70 k/uL Monocytes Absolute 0.64 0.10 - 1.20 k/uL Eosinophils Absolute <0.03 0.00 - 0.44 k/uL Basophils Absolute <0.03 0.00 - 0.20 k/uL Absolute Immature Granulocyte 0.04 0.00 - 0.30 k/uL Basic Metabolic Panel Collection Time: 04/23/23 5:51 AM Result Value Ref Range Sodium 138 135 - 144 mmol/L Potassium 3.8 3.7 - 5.3 mmol/L Chloride 104 98 - 107 mmol/L CO2 25 20 - 31 mmol/L Anion Gap 9 9 - 17 mmol/L Glucose 113 (H) 70 - 99 mg/dL BUN 12 6 - 20 mg/dL Creatinine 0.6 0.5 - 0.9 mg/dL Est, Glom Filt Rate >60 >60 mL/min/1.73m2 Calcium 8.3 (L) 8.6 - 10.4 mg/dL Imaging/Diagonstics: No results found. Assessment : Hospital Problems Last Modified POA * (Principal) Acute saddle pulmonary embolism without acute cor pulmonale (HCC) 04/21/2023 Yes Acute deep vein thrombosis (DVT) ([facility]) 04/22/2023 Yes Obesity (BMI 30.0-34.9) 04/22/2023 Yes Acute hypoxic respiratory failure (HCC) 04/22/2023 Yes Seizure disorder (HCC) 04/22/2023 Yes Syncope 04/22/2023 Yes #Saddle PE #DVT -s/p pulm artery thrombectomy. -stable and downgraded from ICU. Plan to transition to oral. Given seizure hx.mediucation side effects will need to bridge with coumadin. Pharmacy to dose, daily INR. Willn eed to get set up with coumadin clinic. -denies cp, sob, abdominal pain. Hgb stable. On room air, no signs of active heart strain. Continuetele. -recent right TKA 2 weeks ago but at baseline is bedbound from my understanding. Concern for VTE now and in future. Will consult hematology about lifelong vs 3- 6 month of AC? -phramcy to dose, daily INR, monitor liver function -Discharge planning-->POA wants NH but patient wants to go home -case mgt to set up coumadin clinic , iNR checks before discharge -vascular signed off. #Seizure disorder -on carbamazapine -compliant, no recent seizure activity reported -DOACs have drug interaction with seizure med, will need to use coumadin -seizure precautions, monitor level #Cognitive Delay -Ao3 when seen , poor insight, brother POTeressa, severity unknown #chronic urinary incontience -denies urinary symptoms, reports chronic incontience, not on any home meds, will continue to monitor -resume home medication #post Right TKA -continue ptot -Wound care monitoring -neurovascular checks Discharge planning Appreciate case mgt recs Brother is POA Came from rehab [place] but lives at home Madhav Cunningham - 04/23/2023 8:35 AM EST Images from the original note were not included. Division of Vascular Surgery Progress Note Chief Complaint: SOB and syncopal events History of Present Illness: Elizabeth Sánchez is a 57 y.o. woman who presents with shortness of breath and a syncopal episode, found to have a saddle pulmonary embolism with right heart strain. Pt was transferred from an outside facility. Pt is s/p mechanical thrombectomy with Dr. Pinzon 04/21, which she tolerated well. Overnight events: Pt was seen and evaluated at bedside. No overnight events. Heparin gtt was discontinued, now on PO eliquis. Pt complains of right knee pain s/t previous knee surgery. Denies shortness of breath, chest pain, syncope, N/V. Medical History: Past Medical History: Diagnosis Date Mental developmental delay Osteoarthritis Seasonal allergies Seizure disorder (HCC) Surgical History: Past Surgical History: Procedure Laterality Date TOTAL KNEE ARTHROPLASTY Right VASCULAR SURGERY N/A 04/21/2023 INARI- MECHANICAL THROMBECTOMY performed by Luisito Pinzon MD at [facility] Family History: Family History Problem Relation Age of Onset Cancer Mother Stroke Mother Other Mother Heart Failure Father Diabetes Father Other Brother Allergies: Dilantin [phenytoin] Medications: Current Facility-Administered Medications Medication Dose Route Frequency Provider Last Rate Last Admin pantoprazole (PROTONIX) tablet 40 mg 40 mg Oral QAM AC Yosef Hull MD 40 mg at 04/23/23 0536 apixaban (ELIQUIS) tablet 10 mg 10 mg Oral BID Mayur Christy MD 10 mg at 04/22/232105 Followed by [START ON 04/29/2023] apixaban (ELIQUIS) tablet 5 mg 5 mg Oral BID Mayur Christy MD [Held by provider] carBAMazepine (CARBATROL) extended release capsule 200 mg 200 mg Oral TID Rosa Elena Schwartz MD docusate sodium (COLACE) capsule 100 mg 100 mg Oral BID Rosa Elena Schwartz MD 100 mg at 04/22/232109 cetirizine (ZYRTEC) tablet 10 mg 10 mg Oral Daily Rosa Elena Schwartz MD 10 mg at 04/22/232105 sertraline (ZOLOFT) tablet 25 mg 25 mg Oral Daily Rosa Elena Schwartz MD 25 mg at 04/22/232105 guaiFENesin (MUCINEX) extended release tablet 1,200 mg 1,200 mg Oral BID Rosa Elena Schwartz MD 1,200 mg at 04/22/232105 montelukast (SINGULAIR) tablet 10 mg 10 mg Oral Nightly Rosa Elena Schwartz MD 10 mg at 04/22/232105 heparin (porcine) injection 3,000 Units 40 Units/kg IntraVENous PRN Jere Kendrick MD 3,000 Units at 04/22/23 09 heparin (porcine) injection 6,000 Units 80 Units/kg IntraVENous PRN Jere Kendrick MD sodium chloride flush 0.9 % injection 5-40 mL 5-40 mL IntraVENous 2 times per day Jere Kendrick MD 10 mL at 04/22/23 0856 sodium chloride flush 0.9 % injection 5-40 mL 5-40 mL IntraVENous PRN Jere Kendrick MD 0.9 % sodium chloride infusion IntraVENous PRN Jere Kendrick MD potassium chloride 20 mEq/50 mL IVPB (Central Line) 20 mEq IntraVENous PRN Jere Kendrick MD Or potassium chloride 10 mEq/100 mL IVPB (Peripheral Line) 10 mEq IntraVENous PRN Jere Kendrick MD magnesium sulfate 2000 mg in 50 mL IVPB premix 2,000 mg IntraVENous PRN Jere Kendrick MD ondansetron (ZOFRAN-ODT) disintegrating tablet 4 mg 4 mg Oral Q8H PRN Jere Kendrick MD Or ondansetron (ZOFRAN) injection 4 mg 4 mg IntraVENous Q6H PRN Jere Kendrick MD polyethylene glycol (GLYCOLAX) packet 17 g 17 g Oral Daily PRN Jere Kendrick MD acetaminophen (TYLENOL) tablet 650 mg 650 mg Oral Q6H PRN Jere Kendrick MD 650 mg at 04/23/23 0538 Or acetaminophen (TYLENOL) suppository 650 mg 650 mg Rectal Q6H PRN Jere Kendrick MD Social History: Tobacco: reports that she has never smoked. She has never been exposed to tobacco smoke. She has never used smokeless tobacco. Alcohol: reports that she does not currently use alcohol. Drug Use: reports no history of drug use. Review of Systems: Review of Systems Respiratory: Negative for shortness of breath. Cardiovascular: Negative for chest pain. Neurological: Negative for dizziness and syncope. Physical Exam: Vitals: BP 131/60 Pulse 72 Temp 98.6 F (37 C) (Oral) Resp 18 Ht 1.778 m (5' 10 ) Wt 106.1kg (234 lb) SpO2 96% BMI 33.58 kg/m Physical Exam Constitutional: General: She is not in acute distress. HENT: Head: Normocephalic and atraumatic. Pulmonary: Effort: Pulmonary effort is normal. Musculoskeletal: General: Tenderness present. Right lower leg: Edema present. Skin: General: Skin is warm and dry. Findings: Bruising present. Comments: Ecchymosis and post op scars from knee replacement 2 weeks prior over the RLE Neurological: Mental Status: She is alert. Psychiatric: Mood and Affect: Mood normal. Behavior: Behavior normal. Imaging/Labs: No results found. Assessment and Plan: S/p mechanical thrombectomy 04/21 of saddle pulmonary embolism w/ right heart strain - f/u results of duplex ultrasound of lower extremities - Continue AC therapy PO - Okay for step down and out of bed - Compression to lower extremities Medical student Associated attestation - Luisito Pinzon MD - 04/23/2023 9:00 AM EST Images from the original note were not included. ATTENDING ATTESTATION: I personally examined Elizabeth Hull Kimberley today and confirmed the pertinent history,exam and medical decision making in the resident's note. Please note there may be additional comments below. Additional Comments: Doing well, duplex with right femoral and popliteal DVT. Overall feeling better from respiratory standpoint, leg just bothers her. Ok to work with therapy, on oral anticoagulation. Recommend compression and elevation to help with swelling. Ok for discharge from vascular surgerystandpoint. Will arrange for outpatient follow up in 1 month. [facility] [place] O: C: Email: [email or web address] Vinay Shelton MD - 04/22/2023 2:39 PM EST Critical care team - Resident sign-out to medicine service Date and time: 04/22/2023 2:40 PM Patient's name: Elizabeth Sánchez Patient's account/billing number: [id number] Patient's Date of : 1965 Age: 57 y.o. Date of Admission: 04/21/2023 2:29 PM Length of stay during current admission: 1 Primary Care Physician: No primary care provider on file. Code Status: Full Code Mode of physician to physician communication: [x] Via telephone [] In person Date and time of sign-out: 04/22/2023 2:40 PM Accepting Medicine team: [facility] Accepting team's attending: Dr. Parra Patient's current ICU Bed: 3002 Patient's assigned bed on floor: 324 [] Med-Surg Monitored [x] Step-down [] Psychiatry ICU [] Psych floor Reason for ICU admission: Saddle Pulmonary embolism ICU course summary: 57 y.o. woman who presents with shortness of breath and a syncopal episode, found to have a saddle pulmonary embolism with right heart strain. Pt was transferred from an outside facility. Pt is s/p mechanical thrombectomy with Dr. Pinzon 04/21, which she tolerated well. Overnight events: Pt was seen and evaluated at bedside. No overnight events. Pt resting in bed on room air sp02 92%. HR 72. Heparin gtt was discontinued this AM and will be transitioned to PO. Deniesshortness of breath, chest pain, syncope, N/V. S/p mechanical thrombectomy 04/21 TTE is without abnormalities. Normal EF. No RV strain noted Procedures during patient's ICU stay: Mechanical thrombectomy 04/21 Current Vitals: BP (!) 110/58 Pulse 78 Temp 98.4 F (36.9 C) (Axillary) Resp 22 Ht 1.778 m (5' 10 ) Wt 106.1 kg (234 lb) SpO2 98% BMI 33.58 kg/m Cultures: Blood cultures: [] None drawn [] Negative [] Positive (Details: ) Urine Culture: [] None drawn [] Negative [] Positive (Details: ) Sputum Culture: [] None drawn [] Negative [] Positive (Details: ) Endotracheal aspirate: [] None drawn [] Negative [] Positive (Details: ) Consults: 1. Vascular surgery Assessment: Patient Active Problem List Diagnosis Date Noted Acute saddle pulmonary embolism without acute cor pulmonale (HCC) 04/21/2023 Recommended Follow-up: Transition to eliquis Continue to trend troponin Monitor respiratory status Follow VS recommendations Above mentioned assessment and plan was discussed by me with the admitting medicine resident. The medicine team assigned to the patient by medicine admitting resident will be following up the patientfrom now onwards on the floor. Vinay Shelton MD Critical care resident Department of Internal Medicine/ Critical care [facility]) 04/22/2023, 2:40 PM * Keyon Maki DO - 04/22/2023 8:29 AM EST Images from the original note were not included. Division of Vascular Surgery Progress Note Chief Complaint: SOB and syncopal events History of Present Illness: Elizabeth Sánchez is a 57 y.o. woman who presents with shortness of breath and a syncopal episode, found to have a saddle pulmonary embolism with right heart strain. Pt was transferred from an outside facility. Pt is s/p mechanical thrombectomy with Dr. Pinzon 04/21, which she tolerated well. Overnight events: Pt was seen and evaluated at bedside. No overnight events. Pt resting in bed on room air sp02 92%. HR 72. Heparin gtt was discontinued this AM and will be transitioned to PO. Deniesshortness of breath, chest pain, syncope, N/V. Medical History: History reviewed. No pertinent past medical history. Surgical History: History reviewed. No pertinent surgical history. Family History: History reviewed. No pertinent family history. Allergies: Dilantin [phenytoin] Medications: Current Facility-Administered Medications Medication Dose Route Frequency Provider Last Rate Last Admin pantoprazole (PROTONIX) tablet 40 mg 40 mg Oral QAYosef Zambrano MD heparin 25,000 units in dextrose 5% 250 mL (premix) infusion 5-30 Units/kg/hr IntraVENous Continuous Jere Kendrick MD 11.3 mL/hr at 04/22/23 0715 15 Units/kg/hr at 04/22/23 0715 heparin (porcine) injection 3,000 Units 40 Units/kg IntraVENous PRN Jere Kendrick MD heparin (porcine) injection 6,000 Units 80 Units/kg IntraVENous PRN Jere Kendrick MD sodium chloride flush 0.9 % injection 5-40 mL 5-40 mL IntraVENous 2 times per day Jere Kendrick MD sodium chloride flush 0.9 % injection 5-40 mL 5-40 mL IntraVENous PRN Jere Kendrick MD 0.9 % sodium chloride infusion IntraVENous PRN Jere Kendrick MD potassium chloride 20 mEq/50 mL IVPB (Central Line) 20 mEq IntraVENous PRN Jere Kendrick MD Or potassium chloride 10 mEq/100 mL IVPB (Peripheral Line) 10 mEq IntraVENous PRN Jere Kendrick MD magnesium sulfate 2000 mg in 50 mL IVPB premix 2,000 mg IntraVENous PRN Jere Kendrick MD ondansetron (ZOFRAN-ODT) disintegrating tablet 4 mg 4 mg Oral Q8H PRN Jere Kendrick MD Or ondansetron (ZOFRAN) injection 4 mg 4 mg IntraVENous Q6H PRN Jere Kendrick MD polyethylene glycol (GLYCOLAX) packet 17 g 17 g Oral Daily PRN Jere Kendrick MD acetaminophen (TYLENOL) tablet 650 mg 650 mg Oral Q6H PRN Jere Kendrick MD Or acetaminophen (TYLENOL) suppository 650 mg 650 mg Rectal Q6H PRN Jere Kendrick MD Social History: Tobacco: reports that she has never smoked. She has never been exposed to tobacco smoke. She has never used smokeless tobacco. Alcohol: reports that she does not currently use alcohol. Drug Use: reports no history of drug use. Review of Systems: Review of Systems Respiratory: Negative for shortness of breath. Cardiovascular: Negative for chest pain. Neurological: Negative for dizziness and syncope. Physical Exam: Vitals: BP (!) 148/81 Pulse 76 Temp 98.4 F (36.9 C) (Axillary) Resp 18 Ht 1.778 m (5' 10 ) Wt 106.5 kg (234 lb 12.6 oz) SpO2 92% BMI 33.69 kg/m Physical Exam Constitutional: General: She is not in acute distress. HENT: Head: Normocephalic and atraumatic. Pulmonary: Effort: Pulmonary effort is normal. Musculoskeletal: General: Tenderness present. Right lower leg: Edema present. Skin: General: Skin is warm and dry. Findings: Bruising present. Comments: Ecchymosis and post op scars from knee replacement 2 weeks prior over the RLE Neurological: Mental Status: She is alert. Psychiatric: Mood and Affect: Mood normal. Behavior: Behavior normal. Imaging/Labs: No results found. Assessment and Plan: S/p mechanical thrombectomy 04/21 of saddle pulmonary embolism w/ right heart strain - f/u results of duplex ultrasound of lower extremities - Continue AC therapy PO after Heparin gtt was d/c, okay for Eliquis - Okay for step down and out of bed - Compression to lower extremities General Surgery Resident, PGY-2 Associated attestation - Luisito Pinzon MD - 04/22/2023 4:16 PM EST Images from the original note were not included. ATTENDING ATTESTATION: I personally examined Elizabeth Hull Kimberley today and confirmed the pertinent history,exam and medical decision making in the resident's note. Please note there may be additional comments below. Additional Comments: Doing well hemodynamically, on minimal supplemental oxygen, denies shortness of breath and chest pain. Right groin site soft. Has right femoral to popliteal DVT, did not involve common femoral vein. Recommend compression and elevation for lower extremities, ok to be out of bed and work with therapy. Ambulation helps with reducing more thrombus formation. Ok to switch to therapeutic oral agent for anticoagulation. Will arrange for outpatient follow up with me in 1 month. Ok to transfer to step down unit today. [facility] [place] [facility]: C: Email: [email or web address] Abhinav Gonzales MD - 04/22/2023 7:06 AM EST INTENSIVE CARE UNIT Resident Physician Progress Note Patient - Elizabeth Hull Kimberley Date of Admission - 04/21/2023 2:29 PM Date of Evaluation - 04/22/2023 Room and Bed Number - 3002/3002-01 Hospital Day - 1 Cc- pe SUBJECTIVE: OVERNIGHT EVENTS: No acute events reported overnight. Patient remained afebrile, hemodynamically stable, saturating well on 2 L nasal cannula. Patient is s/p mechanical thrombectomy and aspiration of thrombus. TODAY: Patient examined at bedside today. Labs and chart reviewed. Vitals reviewed. Labs are pending. Troponin is trending down 281<401<472<573. EKG reviewed post thrombectomy, showing no changes. Patient has no concerns and complaints. Patient denies any symptoms. Brief History: Patient, 57-year-old female, transferred from outlying facility where she was found to have saddle pulmonary embolism. Patient recently underwent right total knee replacement 2 weeks ago at [facility]. Yesterday, patient was feeling dizzy and lightheaded. When she arrived to ED she was reporting chest pressure. She was also found to be in acute hypoxic respiratory failure, put on nasal cannula. Her CT PE was done which showed saddle pulmonary embolism. Considering her acute condition, she was transferred to [facility] for further evaluation management. Vascular surgery has been consulted to plan to do pulmonary artery thrombectomy. AWAKE & FOLLOWING COMMANDS: [] No [x] Yes SECRETIONS Amount: [] Small [] Moderate [] Large [x] None Color: [] White [] Colored [] Bloody SEDATION: RAAS Score: [] Propofol gtt [] Versed gtt [] Ativan gtt [x] No Sedation PARALYZED: [x] No [] Yes VASOPRESSORS: [x] No [] Yes [] Levophed [] Dopamine [] Vasopressin [] Dobutamine [] Phenylephrine [] Epinephrine OBJECTIVE: VITAL SIGNS: BP 119/60 Pulse 87 Temp 98.4 F (36.9 C) (Axillary) Resp 18 Ht 1.778 m (5' 10 ) Wt 106.5 kg (234 lb 12.6 oz) SpO2 93% BMI 33.69 kg/m Tmax over 24 hours: Temp (24hrs), Av.1 F (36.7 C), Min:98 F (36.7 C), Max:98.4 F (36.9 C) Patient Vitals for the past 8 hrs: BP Temp Temp src Pulse Resp SpO2 04/22/23 0600 119/60 -- -- 87 18 93 % 04/22/23 0500 108/61 -- -- 80 16 95 % 04/22/23 0400 (!) 105/55 98.4 F (36.9 C) Axillary 81 16 91 % 04/22/23 0300 (!) 115/56 -- -- 80 14 97 % 04/22/23 0200 (!) 94/57 -- -- 82 13 90 % 04/22/23 0100 (!) 99/55 -- -- 82 14 96 % 04/22/23 0030 -- -- -- 96 15 92 % 04/22/23 0000 112/64 98 F (36.7 C) Oral 88 20 95 % 04/21/23 2330 -- -- -- 86 17 96 % Intake/Output Summary (Last 24 hours) at 04/22/2023 0707 Last data filed at 04/22/2023 0641 Gross per 24 hour Intake 365.47 ml Output 75 ml Net 290.47 ml Date 04/22/23 - 04/22/23 2359 Shift 5175-7093 1404-2544 7180-4755 24 Hour Total INTAKE I.V.(mL/kg) 81.9(0.8) 81.9(0.8) Shift Total(mL/kg) 81.9(0.8) 81.9(0.8) OUTPUT Shift Total(mL/kg) Weight (kg) 106.5 106.5 106.5 106.5 Wt Readings from Last 3 Encounters: 04/21/23 106.5 kg (234 lb 12.6 oz) Body mass index is 33.69 kg/m . PHYSICAL EXAM: Physical Exam Vitals and nursing note reviewed. Constitutional: General: She is awake. She is not in acute distress. Appearance: Normal appearance. She is not ill-appearing. HENT: Head: Atraumatic. Nose: Nose normal. Eyes: General: No scleral icterus. Conjunctiva/sclera: Conjunctivae normal. Cardiovascular: Heart sounds: Normal heart sounds. Pulmonary: Breath sounds: Normal breath sounds. Abdominal: General: Abdomen is flat. Palpations: Abdomen is soft. Musculoskeletal: General: Swelling present. Right knee: Swelling present. Left knee: No swelling. Right lower leg: No edema. Left lower leg: No edema. Comments: Incision site on rite thigh looks clean, no pus,drainage, active bleeding noted. Site is non tender. Right knee incision site is clean, stiches intact. Skin: General: Skin is dry. Neurological: Mental Status: She is alert and oriented to person, place, and time. Psychiatric: Mood and Affect: Mood normal. Behavior: Behavior is cooperative. MEDICATIONS: Scheduled Meds: sodium chloride flush 5-40 mL IntraVENous 2 times per day Continuous Infusions: heparin (PORCINE) Infusion 15 Units/kg/hr (04/22/23 0641) sodium chloride PRN Meds: heparin (porcine), 40 Units/kg, PRN heparin (porcine), 80 Units/kg, PRN sodium chloride flush, 5-40 mL, PRN sodium chloride, , PRN potassium chloride, 20 mEq, PRN Or potassium chloride, 10 mEq, PRN magnesium sulfate, 2,000 mg, PRN ondansetron, 4 mg, Q8H PRN Or ondansetron, 4 mg, Q6H PRN polyethylene glycol, 17 g, Daily PRN acetaminophen, 650 mg, Q6H PRN Or acetaminophen, 650 mg, Q6H PRN SUPPORT DEVICES: [] Ventilator [] BIPAP [x] Nasal Cannula [] Room Air Additional Respiratory Assessments Pulse: 87 Respirations: 18 SpO2: 93 % No results found for: PHART , PH , PAB9BTU , PCO2 , PO2ART , PO2 , XXX8WUI , HCO3 , BEART , BE , THGBART , THB , KVJ1AEZ , C7VUKFXP , O2SAT , FIO2 DATA: Complete Blood Count: Recent Labs 04/21/23 1512 WBC 8.0 RBC 3.11* HGB 9.4* HCT 30.2* MCV 97.1 MCH 30.2 MCHC 31.1 RDW 14.2 PLT 284 MPV 9.3 Last 3 Blood Glucose: Recent Labs 04/21/23 1512 GLUCOSE 145* PT/INR: Lab Results Component Value Date/Time PROTIME 16.8 04/21/2023 03:12 PM INR 1.4 04/21/2023 03:12 PM PTT: Lab Results Component Value Date/Time APTT >180.0 04/21/2023 06:10 PM Comprehensive Metabolic Profile: Recent Labs 04/21/23 1512 NA 134* K 4.1 CL 99 CO2 25 BUN 14 CREATININE 0.7 GLUCOSE 145* CALCIUM 8.4* PROT 6.0* LABALBU 3.5 BILITOT 0.3 ALKPHOS 118* AST 28 ALT 20 Magnesium: No results found for: MG Phosphorus: No results found for: PHOS Ionized Calcium: No results found for: CAION Urinalysis: No results found for: NITRU , COLORU , PHUR , LABCAST , WBCUA , RBCUA , MUCUS , TRICHOMONAS , YEAST , BACTERIA , CLARITYU , SPECGRAV , LEUKOCYTESUR , UROBILINOGEN , BILIRUBINUR , BLOODU , GLUCOSEU , KETUA , AMORPHOUS HgBA1c: No results found for: LABA1C TSH: No results found for: TSH Lactic Acid: No results found for: LACTA Troponin: No results for input(s): TROPONINI in the last 72 hours. ASSESSMENT: Patient Active Problem List Diagnosis Date Noted Acute saddle pulmonary embolism without acute cor pulmonale (HCC) 04/21/2023 PLAN: WEAN PER PROTOCOL: [] No [x] Yes [] N/A ICU PROPHYLAXIS: Stress ulcer: [x] PPI Agent [] O5Ywhae [] Sucralfate [] Other: VTE: [] Enoxaparin [x] Unfract. Heparin Subcut [] EPC Cuffs NUTRITION: [] NPO [] Tube Feeding (Specify: ) [] TPN [x] PO HOME MEDS RECONCILED: [x] No [] Yes CONSULTATION NEEDED: [] No [x] Yes FAMILY UPDATED: [] No [x] Yes TRANSFER OUT OF ICU: [] No [] Yes Additional Assessment: Principal Problem: Acute saddle pulmonary embolism without acute cor pulmonale (HCC) Resolved Problems: * No resolved hospital problems. * Plan: CV: Patient hemodynamically stable. Continue to monitor cardio pulmonary status. Patient is s/p thrombectomy. Elevated troponin most likely secondary to demand ischemia, troponins trending down. Patient has no shortness of breath or chest pain. Follow-up with echo Will follow-up with vascular surgery. Pending Duplex US of lower legs. GI/Nutrition: Patient tolerating p.o. diet. /Fluids/Electrolytes: Replace electrolytes as needed Heme: Will follow-up with hemoglobin levels post thrombectomy. Will transfuse if less than 7 ID: Afebrile. WBC count normal. Continue to monitor Neuro: Patient alert and oriented x 4. Neurochecks per ICU. Continue to monitor neurological status Resp: Patient saturating on 2 L nasal cannula. Try to wean down patient off nasal cannula to room air S/p thrombectomy, will follow-up vascular surgery plan. Prophylaxis: DVT: Heparin infusion GI: Protonix Dispo: To remain in ICU, pending vascular surgery recommendations Yosef Hull MD Internal Medicine Resident, PGY- 2 [place], [place]. 7:07 AM This note is created with the assistance of a speech-recognition program. While intending to generate a document that actually reflects the content of the visit, no guarantees can be provided that every mistake has been identified and corrected by editing. Attending Physician Statement I have discussed the care of Elizabeth Sánchez, including pertinent history and exam findings, with the resident. I have seen and examined the patient and the mario elements of all parts of the encounter have been performed by me. I agree with the assessment, plan and orders as documented by the resident with additions . Total critical care time caring for this patient with life threatening, unstable organ failure, including direct patient contact, management of life support systems, review of data including imaging and labs, discussions with other team members and physicians at least 30 Min so far today, excludingprocedures. Please note that this chart was generated using voice recognition [email or web address] dictation software. Although every effort was made to ensure the accuracy of this automated imaging administrator, some errors in imaging administrator may have occurred. documented in this encounterB[facility] course Narrative* Ismael Reynolds MD - 04/27/2023 5:12 PM EST Discharge Summary Date: 04/27/2023 Patient Name: Elizabeth Sánchez Date of : 1965 Age: 57 y.o. Admit Date: 04/21/2023 Discharge Date: 04/27/2023 Discharge Condition: Stable Admission Diagnosis Pulmonary embolism (HCC) [I26.99];Acute saddle pulmonary embolism without acute cor pulmonale (HCC)[I26.92] Discharge Diagnosis Principal Problem: Acute saddle pulmonary embolism without acute cor pulmonale (HCC) Active Problems: Acute deep vein thrombosis (DVT) (HCC) Acute hypoxic respiratory failure (HCC) Seizure disorder (HCC) Obesity (BMI 30.0-34.9) Syncope Resolved Problems: * No resolved hospital problems. * Hospital Stay Narrative of Hospital Course: 57 y.o. with presented as transfer from [facility] to er with 2d of sob, syncope.S he underwent right knee replacement 2 weeks prior and she was in the rehab. She has underlying cognitive difficulty, Seizure disorder, lyphemedma, osteoarbthitis , questionable 2L intermittently at home., female who is admitted to the hospital for acute pulmonary embolism with strain seen on outside CT scan transferred for vascular services. S. She presented with dizziness and lightheadedness. She was transferred toemergency room with chest pressure. she underwent mechanical thrombectomy. After that, she was started on anticoagulation with heparin and bridged to coumadin. Further work up revealed blt DVTs. She has had ongoing leg edema. Overall improving, plan is to be dc to facility. Neuro consulted about seizure medication. Oncology guiding anticoagulation and hematological concerns. Plan is to continue coumadin for at least 6 months with INR goal 2-3. Patient doesn't want to start any seizure meds and will follow up outpatient. She will follow up with vascular and have her legs furhter assessed but pvr testing was wnml and vascular informed that there is pulses is lower extremities Consultants: IP CONSULT TO VASCULAR SURGERY IP CONSULT TO INTERNAL MEDICINE IP CONSULT TO CRITICAL CARE PHARMACY TO DOSE WARFARIN IP CONSULT TO PHARMACY IP CONSULT TO ONCOLOGY IP CONSULT TO CASE MANAGEMENT IP CONSULT TO NEUROLOGY Surgeries/procedures Performed: Treatments: Procedures Discharge Plan/Disposition: To [facility] Hospital/Incidental Findings Requiring Follow Up: Patient Instructions: Diet: Activity:Activity as Tolerated For number of days (if applicable): Other Instructions: Provider Follow-Up: No follow-ups on file. Significant Diagnostic Studies: Recent Labs: Admission on 04/21/2023 No results displayed because visit has over 200 results. Radiology last 7 days: XR CHEST PORTABLE Result Date: 04/26/2023 Left basilar atelectasis/scarring. No significant pleural effusion or evidence of pulmonary edema. Pending Labs Order Current Status SPECIMEN REJECTION In process Discharge Medications Current Discharge Medication List START taking these medications ipratropium 0.5 mg-albuterol 2.5 mg (DUONEB) 0.5-2.5 (3) MG/3ML SOLN nebulizer solution Inhale 3 mLs into the lungs every 4 hours as needed for Shortness of Breath Qty: 360 mL Refills: 1 ammonium lactate (LAC-HYDRIN) 12 % lotion Apply topically as needed. Qty: 57 g Refills: 1 pantoprazole (PROTONIX) 40 MG tablet Take 1 tablet by mouth every morning (before breakfast) Qty: 30 tablet Refills: 3 warfarin (COUMADIN) 2.5 MG tablet Take 1 tablet by mouth daily Qty: 30 tablet Refills: 0 Current Discharge Medication List Current Discharge Medication List CONTINUE these medications which have NOT CHANGED calcium carbonate (TUMS) 500 MG chewable tablet Take 1 tablet by mouth daily carBAMazepine (TEGRETOL XR) 200 MG extended release tablet Take 1 tablet by mouth daily cetirizine (ZYRTEC) 10 MG tablet Take 1 tablet by mouth daily as needed for Allergies vitamin D (CHOLECALCIFEROL) 25 MCG (1000 UT) TABS tablet Take 2 tablets by mouth daily montelukast (SINGULAIR) 10 MG tablet Take 1 tablet by mouth nightly potassium chloride (MICRO-K) 10 MEQ extended release capsule Take 1 capsule by mouth daily sertraline (ZOLOFT) 25 MG tablet Take 1 tablet by mouth daily aspirin 325 MG EC tablet Take 1 tablet by mouth daily docusate sodium (COLACE) 100 MG capsule Take 1 capsule by mouth 2 times daily guaiFENesin (MUCINEX) 600 MG extended release tablet Take 2 tablets by mouth 2 times daily ondansetron (ZOFRAN) 4 MG tablet Take 1 tablet by mouth every 4 hours as needed for Nausea or Vomiting oxyCODONE-acetaminophen (PERCOCET) 5-325 MG per tablet Take 1 tablet by mouth every 6 hours as needed for Pain. Max Daily Amount: 4 tablets Current Discharge Medication List STOP taking these medications famotidine (PEPCID) 20 MG tablet Comments: Reason for Stopping: amoxicillin (AMOXIL) 500 MG capsule Comments: Reason for Stopping: Time Spent on Discharge: 25 minutes were spent in patient examination, evaluation, counseling as well as medication reconciliation, prescriptions for required medications, discharge plan, and follow up. documented in this encounterB[facility] Hospital Discharge instructions* Discharge Instructions* Ismael Reynolds MD - 04/27/2023 5:10 PM EST You have been started on blood thinner called warfarin. You will need INR levels checked weekly to assess for dose adjustments until stable. Always recheck inr when you have medication changes, bloodor dark stools, abdominal pain, easy bruising. Your inr goal is 2-3. Follow up with vascular doctor, monitor your weight and wrap your legs with amanda wrap. Continue yourhome medicatins, blood work regularly, check your oxygen status and revisit the need for ongoing oxygen supplement. * Medications* Ismael Reynolds MD - 04/27/2023 5:11 PM EST Coumadin * Discharge Instr - Diet* Ismael Reynolds MD - 04/27/2023 5:07 PM EST Good nutrition is important when healing from an illness, injury, or surgery. Follow any nutrition recommendations given to you during your hospital stay. If you were given an oral nutrition supplement while in the hospital, continue to take this supplement at home. You can take it with meals, in-between meals, and/or before bedtime. These supplements can be purchased at most local grocery stores, pharmacies, and chain super-stores. If you have any questions about your diet or nutrition, call the hospital and ask for the dietitian. * Discharge Instr - RACHELLE* Caroline Zavala RN - 04/26/2023 3:43 PM EST Continuity of Care Form Patient Name: Elizabeth Sánchez : 1965 Admit date: 04/21/2023 Discharge date: 04/27/2023 Code Status Order: Full Code Advance Directives: Admitting Physician: Abhinav Gonzales MD PCP: No primary care provider on file. Discharging Nurse: Discharging Hospital Unit/Room#: 0324/0324-01 Discharging Unit Emergency Contact: Extended Emergency Contact Information Primary Emergency Contact: dottie sánchez Mobile Relation: Brother/Sister Sped Teacher needed? No Past Surgical History: Past Surgical History: Procedure Laterality Date TOTAL KNEE ARTHROPLASTY Right VASCULAR SURGERY N/A 04/21/2023 INARI- MECHANICAL THROMBECTOMY performed by Luisito Pinzon MD at [facility] Immunization History: There is no immunization history on file for this patient. Active Problems: Patient Active Problem List Diagnosis Code Acute saddle pulmonary embolism without acute cor pulmonale ([facility]) I26.92 Acute deep vein thrombosis (DVT) ([facility]) I82.409 Obesity (BMI 30.0-34.9) E66.9 Acute hypoxic respiratory failure ([facility]) J96.01 Seizure disorder ([facility]) G40.909 Peripheral venous insufficiency I87.2 Syncope R55 Isolation/Infection: Isolation No Isolation Patient Infection Status None to display Nurse Assessment: Last Vital Signs: BP 118/69 Pulse 99 Temp 99 F (37.2 C) (Oral) Resp 20 Ht 1.778 m (5' 10 ) Wt 108 kg (238 lb 1.6 oz) SpO2 90% BMI 34.16 kg/m Last documented pain score (0-10 scale): Pain Level: 5 Last Weight: Wt Readings from Last 1 Encounters: 04/26/23 108 kg (238 lb 1.6 oz) Mental Status: oriented and alert IV Access: - None Nursing Mobility/ADLs: Walking Assisted Transfer Assisted Bathing Assisted Dressing Assisted Toileting Assisted Feeding Independent Deep Fat Fry Cook Assisted Med Delivery whole Wound Care Documentation and Therapy: Puncture 04/21/23 Groin (Active) Wound Assessment Dry 04/22/23 0400 Cara-wound Assessment Blanchable erythema 04/22/23 0400 Drainage Amount Scant 04/22/23 0400 Drainage Description Sanguinous 04/22/23 0400 Dressing/Treatment Other (comment) 04/22/23 0400 Number of days: 4 Incision 04/21/23 Knee Right;Anterior (Active) Dressing Status Other (Comment) 04/25/23 194 Incision Cleansed Wound cleanser 04/26/23 0845 Dressing/Treatment Open to air 04/26/23 0845 Closure Jeffery 04/26/23 0845 Margins Approximated 04/26/23 0845 Incision Assessment Dry 04/26/23 0845 Drainage Amount None (dry) 04/26/23 0845 Odor None 04/26/23 0845 Cara-incision Assessment Intact 04/25/23 1945 Number of days: 4 Elimination: Continence: Bowel: Yes Bladder: Yes Urinary Catheter: None Colostomy/Ileostomy/Ileal Conduit: No Date of Last BM: Intake/Output Summary (Last 24 hours) at 04/26/2023 1542 Last data filed at 04/26/2023 0853 Gross per 24 hour Intake 720 ml Output 1180 ml Net -460 ml I/O last 3 completed shifts: In: 720 [P.O.:720] Out: 1250 [Urine:1250] Safety Concerns: At Risk for Falls Impairments/Disabilities: None Nutrition Therapy: Current Nutrition Therapy: - Oral Diet: General Routes of Feeding: Oral Liquids: No Restrictions Daily Fluid Restriction: no Last Modified Barium Swallow with Video (Video Swallowing Test): not done Treatments at the Time of Hospital Discharge: Respiratory Treatments: Oxygen Therapy: is on oxygen at 3 L/min per nasal cannula. Ventilator: - No ventilator support Rehab Therapies: Physical Therapy and Occupational Therapy Weight Bearing Status/Restrictions: No weight bearing restrictions Other Medical Equipment (for information only, NOT a DME order): walker Other Treatments: Patient's personal belongings (please select all that are sent with patient): Glasses RN SIGNATURE: CASE MANAGEMENT/SOCIAL WORK SECTION Inpatient Status Date: 04/21/23 Readmission Risk Assessment Score: Readmission Risk Risk of Unplanned Readmission: 11 Discharging to Facility/ Agency Name: [facility] Address: Fax: Dialysis Facility (if applicable) Name: Address: Dialysis Schedule: Phone: Fax: Air Box Tester/Ip Litigation Paralegal signature: PHYSICIAN SECTION Prognosis: Fair Condition at Discharge: Stable Rehab Potential (if transferring to Rehab): Fair Recommended Labs or Other Treatments After Discharge: INR check closely with adjustments as needed,inr 2-3 goal, spo2, respiratory status, neuro follow up for seizure medication evaluation, reassessneed for o2, follow up with vascular, daily weights with consideration for prn diuretics, bmp, cbc,magnesium. Close follow up Physician Certification: I certify the above information and transfer of Elizabeth Sánchez is necessary for the continuing treatment of the diagnosis listed and that she requires Long Term Facility for less 30 days. Update Admission H&P: No change in H&P PHYSICIAN SIGNATURE: documented in this encounterB[facility] Evaluation note* Encounter Date Diagnosis Assessment Notes Treatment Notes Treatment Clinical Notes Mar, Status post right knee replacement (ICD-10 - Z96.651) Reviewed OAR[facility] report. Percocet refilled last week. Skilled bed. Receiving PT. Mar, Seizure disorder (ICD-10 - G40.909) Reviewed med prescribed by GUILLERMO. Updated medication list. FOllowup w Neurology as scheduled. [employer] Other 01-18-2024 NotePatient: ELIZABETH SÁNCHEZ Age: 57 years Sex: Female : 1965 Associated Diagnoses: None Author: Nola Zuniga DO Results Review General results Discharge Information Discharge Summary Information: Admit Date/Time: 04/05/23 06:49 Discharge Date/Time: 04/08/23 07:31 Admitting Physician: Nola Zuniga DO Referring Physician for Admission: Nola Zuniga DO Consulting Physicians: Radha SHIRLEY Admitting Diagnoses: Discharge Diagnoses: Unilateral primary osteoarthritis, right knee Epilepsy, unspecified, not intractable, without status epilepticus Presence of right artificial knee joint Gastro-esophageal reflux disease without esophagitis Prescription and Home Meds: acetaminophen-oxycodone (Percocet 5 mg-325 mg oral tablet) See Instructions, Take one to two oral every 4 hours as needed for knee surgical pain., 50 tab(s), 0 Refill(s) aspirin (aspirin 325 mg Tab) 325 mg, 1 tab(s), Oral, Daily, for 30 day(s), Daily for 4 weeks for blood clot prevention., 30 tab(s), 0 Refill(s) calcium carbonate (Oyster Shell Calcium 1250 mg (500 mg elemental calcium) oral tablet) 1,250 mg, 1tab(s), Oral, Daily, 0 Refill(s) carbamazepine (Tegretol XR 200 mg oral tablet, extended release) 200 mg, 1 tab(s), Oral, Daily, 0 Refill(s) cetirizine (cetirizine 10 mg Tab) 10 mg, 1 tab(s), Oral, Daily, 0 Refill(s) cholecalciferol (cholecalciferol 2000 intl units oral tablet (Vitamin D3)) 50 mcg, 1 tab(s), Oral, Daily, 0 Refill(s) docusate (Colace 100 mg Cap) 100 mg, 1 cap(s), Oral, BID, 20 cap(s), 0 Refill(s) famotidine (famotidine 20 mg Tab) 20 mg, 1 tab(s), Oral, BID, 0 Refill(s) hydrOXYzine (hydrOXYzine hydrochloride 25 mg Tab) 25 mg, 1 tab(s), Oral, Bedtime, PRN: as needed for itching, 30 tab(s), 0 Refill(s) montelukast (montelukast 10 mg Tab) 10 mg, 1 tab(s), Oral, Daily, 0 Refill(s) potassium chloride (Potassium Chloride (Cwa-Ivxx-Hci 10) 10 mEq oral tablet, extended release) 10 mEq, 1 tab(s), Oral, Daily, 0 Refill(s) sertraline (sertraline 25 mg Tab) 25 mg, 1 tab(s), Oral, Daily, 0 Refill(s) Stable course. D/C [place]. ASA 325mg 4 weeks for DVTp. Mepilex. Reg diet. F/u 4 weeks.[facility] CenterComment on above:Result Comment: Electronically Signed By: Nola Zuniga DO\.br\Date and Time Signed: 04/08/23 07:32 [id number] NotePROGRESS NOTE: 04/07/2022 Postoperative day #2 orthopedic visit for Elizabeth. She had a right total knee arthroplasty done Wednesday with Dr. Zuniga. The patient is doing well. She is afebrile. She really has no major complaints postoperative in regards to her knee pain. She states she is having some left upper quadrant cramping and has yet to have a bowel movement since she has been in the hospital. Her recent lab results white blood cell count 6.1, hemoglobin of 9.7 and hematocrit of 28.7 are stable. Her chem-8 is stable. Vital signs stable. She is afebrile. She is room air 98%. Postoperative dressing remains dry and intact. She has good sensation to her foot and ankle on the right side with good quadriceps strength. ASSESSMENT: Postoperative day #2 right total knee arthroplasty. PLAN: The patient will be going to the [facility] either this evening or when room is available. She has then plans to be discharged home after the recovery period through the [facility]. Will seeher in the office with Dr. Zuniga. Eris Hobson PA-C (For Nola Zuniga D.O.) ls Dictated: 04/07/2023 [id number] Transcribed: 04/07/2023[facility] CenterComment on above:Result Comment: Electronically Signed By: Nola Zuniga DO\.br\Date and Time Signed: 04/07/23 13:17 [id number] NoteReason for Consultation Medical management. History of Present Illness 57-year-old female with past medical history significant for Seizure disorder,GERD,HTN, venous insufficiency. Spoke tp pts brother Harley by phone who offered limited information and provided only updated med list to pharmacist. Stated, I just told all of this to the pharmacist who called . Brother did indicate that pt has not had seizure since the age of 2 and is otherwise essentially health. However pt does seem to lack insight into her health care and states you need to speak matilda brother . Pt is is status post right total knee arthroplasty secondary to right knee osteoarthritis performed by Dr.Michael Zuniga 04/05. Pt is currently doing well. Denies CP, SOB, N/V. Is eating and drinking no issues. Pain controlled w/current pain regimen. Review of Systems Additional ROS info: Except as noted in the above Review of Systems and in the History of Present Illness all other systems have been reviewed and are negative or noncontributory. Physical Exam Vitals & Measurements T: 36.5 ?C(Oral) TMIN: 35.6 ?C(Axillary) TMAX: 36.7 ?C(Oral) HR: 79(Peripheral) RR: 18 BP: 143/77 SpO2: 94% General: Alert and oriented, No acute distress. Eye: Pupils are equal, round and reactive to light. HENT: Normocephalic, Normal hearing, No pharyngeal erythema. Neck: Supple, Non-tender, No lymphadenopathy. Respiratory: Lungs are clear to auscultation, Respirations are non-labored, Breath sounds are equal, Symmetrical chest wall expansion. Cardiovascular: Normal rate, Regular rhythm, Good pulses equal in all extremities, Normal peripheral perfusion, No edema. Gastrointestinal: Soft, Non-tender, Non-distended, Normal bowel sounds. Musculoskeletal Normal range of motion. Normal strength. Integumentary: Warm, Dry, Intact. right knee incision and dressing dry and intact. no drainage noted. Neurologic: Alert, Oriented, No focal deficits. Psychiatric: Cooperative, Appropriate mood & affect, Normal judgment. Assessment/Plan PLAN: 1. Status post total right knee replacement (Z96.651: Presence of right artificial knee joint) pt is s/p RTA secondary to right knee OA. Procedure performed by 04/05/23. Pain control. PT/OT to eval, treat and make recommendations. 2. Osteoarthritis of right knee (M17.11: Unilateral primary osteoarthritis, right knee) See #1 3. Seizure disorder (G40.909: Epilepsy, unspecified, not intractable, without status epilepticus) Hasn't had seizure since age of 2 per pt's brother. Continue Tegretol, 4. GERD (gastroesophageal reflux disease) (K21.9: Gastro-esophageal reflux disease without esophagitis) PPI Problem List/Past Medical History Ongoing No qualifying data Historical No qualifying data Procedure/Surgical History Total knee arthroplasty (04/05/2023), History of tonsillectomy. Medications Inpatient acetaminophen-oxycodone 325 mg-5 mg Tab, 1 tab(s), Oral, q4hr, PRN acetaminophen-oxycodone 325 mg-5 mg Tab, 2 tab(s), Oral, q4hr, PRN aspirin, 325 mg= 1 tab(s), Oral, Daily carBAMazepine 100 mg Chew Tab, 200 mg= 2 tab(s), Chewed, TID cefazolin additive + Sodium Chloride 0.9% intravenous solution 50 mL Colace 100 mg Cap, 100 mg= 1 cap(s), Oral, BID Dulcolax 5 mg Tab-EC, 10 mg= 2 tab(s), Oral, Daily, PRN famotidine 20 mg Tab, 20 mg= 1 tab(s), Oral, BID ferrous sulfate 325 mg Tab, 325 mg= 1 tab(s), Oral, BIDWM HYDROmorphone 1 mg/mL injectable solution, 1 mg= 1 mL, IV Push, q2hr, PRN Lactated Ringers IV Nancy 1000 mL 1,000 mL, 1000 mL, IV Lactated Ringers IV Nancy 1000 mL 1,000 mL, 1000 mL, IV loratadine 10 mg Tab, 10 mg= 1 tab(s), Oral, Daily Milk of Magnesia 8% Susp-Oral, 30 mL, Oral, BID, PRN montelukast 10 mg Tab, 10 mg= 1 tab(s), Oral, Daily morphine 2 mg/mL Inj, 2 mg= 1 mL, IV, q4hr, PRN Nozin 62% Bottle - POSTOP, 6 drop(s), Nasal, BID Pantoprazole [address] Tab, 40 mg= 1 tab(s), Oral, Daily potassium chloride 10 mEq Cap-ER, 10 mEq= 1 cap(s), Oral, Daily sertraline 25 mg Tab, 25 mg= 1 tab(s), Oral, Daily Vitamin C 500 mg Tab, 500 mg= 1 tab(s), Oral, BIDWM Zofran 4 mg/2 mL Injection, 4 mg= 2 mL, IV Push, q6hr, PRN Home cetirizine 10 mg Tab, 10 mg= 1 tab(s), Oral, Daily cholecalciferol 2000 intl units oral tablet (Vitamin D3), 50 mcg= 1 tab(s), Oral, Daily Colace 100 mg Cap, 100 mg= 1 cap(s), Oral, BID famotidine 20 mg Tab, 20 mg= 1 tab(s), Oral, BID hydrOXYzine hydrochloride 25 mg Tab, 25 mg= 1 tab(s), Oral, Bedtime, PRN montelukast 10 mg Tab, 10 mg= 1 tab(s), Oral, Daily Oyster Shell Calcium 1250 mg (500 mg elemental calcium) oral tablet, 1250 mg= 1 tab(s), Oral, Daily Percocet 5 mg-325 mg oral tablet, See Instructions Potassium Chloride (Zth-Wsio-Xlq 10) 10 mEq oral tablet, extended release, 10 mEq= 1 tab(s), Oral, Daily sertraline 25 mg Tab, 25 mg= 1 tab(s), Oral, Daily Tegretol XR 200 mg oral tablet, extended release, 200 mg= 1 tab(s), Oral, TID Allergies Dilantin (Rash) Socia (more content not included)...[facility] CenterComment on above: Result Comment: Electronically Signed By: Radha SHIRLEY\.br\Date and Time Signed: 04/05/23 16:47 EST\.br\Electronically Co-Signed By: Lincoln Hammond DO\.br\Date and Time Co-Signed: 04/06/23 07:11 [id number] NotePT Evaluation completed with an A PAC score of 03/14. Pt was able to perform bed mobility with Min A. Pt did perform some LE exercises on left LE, but did develop increased right knee pain. Deferred standing at this time. Pt/family reports they are interested in SNF as pt resides home alone and will be unable to care for self. [facility] [id number] [facility]01-27-[facility]23 NotePROCEDURE: XR KNEE RT 1_2 V HISTORY: Pain of right knee joint since falling 3 weeks ago COMPARISON: None. FINDINGS: BONES:Complete loss of medial joint space with ywca-[id number]-cluv articulation. Mild-moderate narrowing of lateral compartment and anterior compartment. Prominent periarticular degenerative osteophytes. No fracture or dislocation. SOFT TISSUES:No visible soft tissue swelling. EFFUSION:None visible. OTHER: Negative. IMPRESSION: 1. No acute bone abnormality. 2. Marked degenerative joint disease. Electronically authenticated by: ARELI HOOD Date: 2022-04-17 07:37[facility]01-26[facility] Evaluation note* Encounter Date Diagnosis Assessment Notes Treatment Notes Treatment Clinical Notes Mar, Posterior right knee pain (ICD-10 - M25.561) Mar, Syncope and collapse (ICD-10 - R55) Discussed potential cardiac treatment or testing for this problem. Patient states she never has symptoms except for this 1 time. We will continue to monitor. Has a home alert system with a necklace if needed [employer] Other Evaluation + Plan note Future Appointments Appointment Date:04/05/2023 10:00:00 AM Scheduled Provider: Location:[facility] Appointment Type:Surgery FT Diagnostic Tests Pending * Urine [facility] InformationNort GeoMe Other Evaluation note* Diagnosis Acute saddle pulmonary embolism without acute cor pulmonale (HCC)- Primary Pulmonary embolism (HCC) Other pulmonary embolism and infarction Acute saddle pulmonary embolism without acute cor pulmonale (HCC) Claudication of both lower extremities (HCC) Peripheral venous insufficiency Unspecified venous (peripheral) insufficiency Seizure disorder (HCC) Unspecified epilepsy without mention of intractable epilepsy Acute deep vein thrombosis (DVT) (HCC) Obesity (BMI 30.0-34.9) Obesity, unspecified Acute hypoxic respiratory failure (HCC) Seizure disorder (HCC) Unspecified epilepsy without mention of intractable epilepsy Syncope Syncope and collapse Nonpalpable pulse documented in this encounter AMY JARAD [facility] general Narrative - Reported* Type Description Date Medical History seizure disorder Medical History HTN [...] Surgical History tonsillectomy Hospitalization History allergic reaction [employer] Other History general Narrative - Reported* Type Description Date Medical History seizure disorder Medical History HTN (hypertension) Medical History Herpes zoster with complication Medical History Chest pain, cardiac Medical History Dermatitis Medical History DVT (deep venous thrombosis) Medical History Anemia Medical History Gastroesophageal ref lux disease with esophagitis, unspecified whether hemorrhage Medical History COVID-19 virus infection Medical History Pruritic dermatitis Medical History Acute seasonal allergic rhinitis Medical History pulmonary embolism Surgical History tonsillectomy Hospitalization History allergic reaction [employer] Other Hospital course Narrative No data available for this section [facility] No data available for this section [facility] No data available for this section [facility] Summary Purpose Family History No Family History Records FoundNo Family History Records Found No data available for this section No Family History Records FoundNo Family History Records FoundNo Family History Records Found Advance Directives Latest Code Status on File Code Status Date Activated Date Inactivated Comments Full Code 04/21/2023 5:59 PM Additional Source Comments INFORMATION SOURCE (unrecogn ized section and content) DATE CREATED AUTHOR 04/16/2021 [facility] DATE CREATED AUTHOR AUTHOR'S ORGANIZ ATION 07/29/2022 [facility] DATE CREATED AUTHOR AUTHOR'S ORGANIZ ATION 03/19/2023 [facility] EPIC DATE CREATED AUTHOR AUTHOR'S ORGANIZ ATION 04/29/2023 [facility] DATE CREATED AUTHOR AUTHOR'S ORGANIZ ATION 05/02/2023 [facility] REASON FOR VISIT (unrecogniz ed section and content) INR Reason Comments Shortness of Breath Loss of Consciousness WILLOWS - s/p R knee replacementUpdate Med Listcontact personmessagerefill for [facility] informatio n (unrecognized section and content) Personnel Name: CASSIE LORENZ MD Address: Address: [address] [place] [address] Ordered Prescriptions (unrec ognized section and content) Prescription Sig Dispensed Refills Start Date End Da te lacosamide (VIMPAT) 150 MG TABS tabletIndications:Seizu re disorder (HCC) Take 1 tablet by mouth 2 times daily. Max Daily Amount: 300 mg 60 tablet 2 04/28/2023 04/27/2024 warfarin (COUMADIN) 2.5 MG tablet Take 1 tablet by mouth daily 30 tablet 0 04/27/2023 05/27/2023 pantoprazole (PROTONIX) 40 MG tablet Take 1 tablet by mouth every morning (before breakfast) 30 tablet 3 04/28/2023 ammonium lactate (LAC-HYDRIN) 12 % lotion Apply topically as needed. 57 g 1 04/28/2023 ipratropium 0.5 mg-albuterol 2.5 mg (DUONEB) 0.5-2.5 (3) MG/3ML SOLN nebulizer solution Inhale 3 mLs into the lungs every 4 hours as needed for Shortness of Breath 360 mL 1 04/27/2023 Scheduled Active and Recently Administ ered Medications (unrecognized section and content) Medication Order 04/26/2023 04/27/2023 04/28/2023 ammonium lactate (LAC-HYDRIN) 12 % lotion Topical, DAILY, First dose on Wed04/26/23 at 1545, Apply to lower extremity toes and feet 1600 (Not Given - Provider: Faith Kingston RN - Reason: Patient/family refused) 0919 (Not Given - Provider: Brittni Livingston RN - Reason: Patient/family refused) 0806 (Not Given - Provider: Janet Horner RN - Reason: Patient/family refused) carBAMazepine (CARBATROL) extended release capsule 200 mg 200 mg, Oral, 3 TIMES DAILY, First dose on Wed04/22/23 at 2100, Until Discontinued, Do not crush or break. 0900 (Automatically Held)1400 (Automatically Held)2100 (Automatically Held) 0900 (Automatically Held)1400 (Automatically Held)2100 (Automatically Held) 0900 (Automatically Held)1400 (Automatically Held)2100 (Automatically Held) cefTRIAXone (ROCEPHIN) 1000 mg in sterile water 10 mL IV syringe 1,000 mg, IntraVENous, EVERY 24 HOURS, 5 doses, First dose on Wed04/26/23 at 1815, Last dose on Wed04/30/23 at 1815, Antimicrobial Indications: Upper Respiratory Infection, URI duration of therapy: 5 days, Administer as slow IV Push over 5 mins 1916 (Given - Provider: Faith Kingston RN) 1752 (Given - Provider: Brittni Livingston RN) 1814 (Due) cetirizine (ZYRTEC) tablet 10 mg 10 mg, Oral, DAILY, First dose on Wed04/22/23 at 1915, Until Discontinued 0853 (Not Given - Provider: Faith Kingston RN - Reason: Nausea) 0920 (Given - Provider: Brittni Livingston RN) 0807 (Given - Provider: Janet Horner RN) docusate sodium (COLACE) capsule 100 mg 100 mg, Oral, 2 TIMES DAILY, First dose on Wed04/22/23 at 2100, Until Discontinued, Do not crush or break. 0853 (Not Given - Provider: Faith Kingston RN - Reason: Nausea)2027 (Given - Provider: Kaz Bravo RN) 0920 (Given - Provider: Brittni Livingston RN)2017 (Given - Provider: Radha Moser RN) 0822 (Not Given - Provider: Janet Horner RN - Reason: Patient/family refused)2099 (Due) furosemide (LASIX) injection 20 mg (COMPLETED) 20 mg, IntraVENous, ONCE, 1 dose, On Wed04/26/23 at 1800 191 (Given - Provider: Faith Kingston RN) guaiFENesin (MUCINEX) extended release tablet 1,200 mg 1,200 mg, Oral, 2 TIMES DAILY, First dose on [place] 04/22/23 at 2100, Until Discontinued 0853 (Not Given - Provider: Faith Kingston RN - Reason: Nausea)2026 (Given - Provider: Kaz Bravo RN) 0920 (Given - Provider: Brittni Livingston RN)2017 (Given - Provider: Radha Moser RN) 08 (Given - Provider: Janet Horner, ORION)2099 (Due) heparin (porcine) injection 8,640 Units (COMPLETED) 8,640 Units (80 Units/kg 108 kg), IntraVENous, ONCE, 1 dose, On Wed04/26/23 at 1800, Initial one time bolus 2030 (Given - Provider: Kaz Bravo, ORION) ipratropium 0.5 mg-albuterol 2.5 mg (DUONEB) nebulizer solution 1 Dose (CANCELED) 1 Dose, Inhalation, EVERY 4 HOURS WHILE AWAKE RESP, First dose on Wed04/26/23 at 2000, Until Discontinued, Initiate RT Bronchodilator Protocol: Yes - Inpatient Protocol 2027 (Given - Provider: Kareem Bailey RCP) 08 (Given - Provider: Vitaly Martinez) lacosamide (VIMPAT) tablet 150 mg 150 mg, Oral, 2 TIMES DAILY, First dose on Wed04/27/23 at 1315, Until Discontinued 1406 (Given - Provider: Brittni Livingston RN)2017 (Given - Provider: Radha Moser RN) 08 (Given - Provider: Janet Horner, ORION)2099 (Due) methylPREDNISolone sodium (SOLU-MEDROL) injection 40 mg (COMPLETED) 40 mg, IntraVENous, ONCE, 1 dose, On Wed04/26/23 at 1815 1917 (Given - Provider: Faith Kingston RN) montelukast (SINGULAIR) tablet 10 mg 10 mg, Oral, NIGHTLY, First dose on Wed04/22/23 at 2100, Until Discontinued 2027 (Given - Provider: Kaz Bravo, ORION) 2017 (Given - Provider: Radha Moser RN) 2099 (Due) pantoprazole (PROTONIX) tablet 40 mg (CANCELED) 40 mg, Oral, DAILY BEFORE BREAKFAST, First dose on Wed04/22/23 at 0730, Until Discontinued, Do not crush or break. 0532 (Given - Provider: Kaz Bravo, ORION) pantoprazole (PROTONIX) tablet 40 mg 40 mg, Oral, DAILY BEFORE BREAKFAST, First dose on Wed04/27/23 at 0700, Until Discontinued, Do not crush or break. 0609 (Given - Provider: Kaz Bravo RN) 0609 (Given - Provider: Tiara Mayo RN) sertraline (ZOLOFT) tablet 25 mg 25 mg, Oral, DAILY, First dose on [place] 04/22/23 at 1915, Until Discontinued 0853 (Not Given - Provider: Faith Kingston RN - Reason: Nausea) 0920 (Given - Provider: Brittni Livingston RN) 0807 (Given - Provider: Janet Horner RN) sodium chloride flush 0.9 % injection 5-40 mL 5-40 mL, IntraVENous, EVERY 12 HOURS SCHEDULED (2 times per day), First dose on Wed04/21/23 at 2100, Until Discontinued, For Line Patency: Peripheral IV = 5 mL; Midline or Central Line = 10 mL/lumen. If following IV push medication, administer flush at same rate as the IV push. Flush volume is determined by type of infusion therapy being given. For non-viscous solutions use: Peripheral IV = 5 mL Midline or Central Line = 10 mL/lumen For viscous solutions (i.e. blood components, parenteral nutrition, contrast media, or after obtaining blood sample) use: Peripheral IV = 10 mL Midline or Central Line = 20 mL/lumen 0853 (Given - Provider: Faith Kingston RN)2027 (Given - Provider: Kaz Bravo RN) 09 (Given - Provider: Brittni Livingston RN)2001 (Not Given - Provider: Radha Moser RN - Reason: IV Fluid Infusing) 0808 (Given - Provider: Janet Horner RN)2100 (Due) warfarin (COUMADIN) tablet 7.5 mg (COMPLETED) 7.5 mg, Oral, ONCE, 1 dose, On Wed04/26/23 at 1800, Indication of Use: Treatment-DVT/PE, What is the patient's goal INR? 2.0 - 3.0, Please review INR lab values before administering dose. Hazardous med- See facility policy for handling/disposal 1916 (Given - Provider: Faith Kingston RN) warfarin (COUMADIN) tablet 7.5 mg (COMPLETED) 7.5 mg, Oral, ONCE, 1 dose, On Wed04/27/23 at 1800, Indication of Use: Treatment-DVT/PE, What is the patient's goal INR? 2.0 - 3.0, Please review INR lab values before administering dose. Hazardous med- See facility policy for handling/disposal 1752 (Given - Provider: Brittni Livingston RN) warfarin (COUMADIN) tablet 7.5 mg 7.5 mg, Oral, ONCE, 1 dose, On Wed04/28/23 at 1800, Indication of Use: Treatment-DVT/PE, What is the patient's goal INR? 2.0 - 3.0, Please review INR lab values before administering dose. Hazardous med- See facility policy for handling/disposal 1800 (Due) warfarin placeholder: dosing by pharmacy This patient is currently receiving daily warfarin. Please check INR's and signs/symptoms of bleeding and bruising as appropriate. Continuous Medication Order 04/26/2023 04/27/2023 04/28/2023 0.9 % sodium chloride infusion (CANCELED) IntraVENous, at 100 mL/hr, CONTINUOUS, Starting on Wed04/26/23 at 0930, For 1 day 0932 (New Bag - Provider: Faith Kingston RN)0932 (Rate/Dose Verify - Provider: Kaz Bravo, ORION)1458 (Stopped - Provider: Kaz Bravo RN) heparin 25,000 units in dextrose 5% 250 mL (premix) infusion 5-30 Units/kg/hr 108 kg (5.4-32.4 mL/hr), IntraVENous, CONTINUOUS, Starting on Wed04/26/23 at 1800, Until Discontinued, Heparin Weight-Based Infusion (VTE/DVT/PE) Patient weight: 108 kg Initial Infusion rate: 18 Units/kg/hr (If an initial bolus is ordered, give the bolus prior to the initiation of the infusion) Adjust infusion rate based on Anti-Xa results as listed below. Rate adjustments are to be based on initial weight of 108 kg. Anti-Xa < 0.1 units/mL Heparin 80 units/kg bolus (Max=10,000 units), then increase infusion by 4 units/kg/hr. Anti-Xa 0.1-0.29 units/mL Heparin 40 units/kg bolus (Max=5,000 units), then increase infusion by 2 units/kg/hr. Anti-Xa 0.3-0.7 units/mL No bolus. No change in rate. Anti-Xa 0.71-0.8 units/mL No bolus. Decrease infusion by 1 units/kg/hr. Anti-Xa 0.81-0.99 units/mL No bolus. Decrease infusion by 2 units/kg/hr. Anti-Xa 1 units/mL or greater Hold heparin for 60 minutes, then decrease infusion by 3 units/kg/hr. Check Anti-Xa 6 hours after initiation and 6 hours after every dose change. When Anti-Xa is within target range for two consecutive times, check Anti-Xa once daily with morning labs. If the rate titration adjustment indicated by the nomogram causes a dose that is above the ordered range contact provider. If heparin drip is held or stopped for a procedure, call provider to obtain resume rate. 2037 (New Bag - Provider: Kaz Bravo RN)220 (Rate/Dose Verify - Provider: Kaz Bravo RN) 0037 (Held - Provider: Kaz Bravo RN - Reason: Other - Comment: Anti-XA 1.43.)0139 (Rate/Dose Change - Provider: Kaz Bravo RN)0140 (Rate/Dose Change - Provider: Kaz Bravo RN)0630 (Rate/Dose Verify - Provider: Kaz Bravo RN)1020 (Held by provider - Provider: Ismael Reynolds MD - Reason: Other) PRN Medication Order 04/26/2023 04/27/2023 04/28/2023 0.9 % sodium chloride infusion IntraVENous, at 5-250 mL/hr, PRN, if patient receiving piggyback infusions and maintenance fluids are not ordered OR KVO fluids to protect IV site / prevent frequent line interruptions/ long duration, Starting on Wed04/21/23 at 1759, For piggyback infusion, administer at same rate as piggyback for a total of 25 mL. Enter 25 mL into dose field and piggyback rate into rate field of order. If piggyback is infusing at a rate less than 100 mL/hr, enter 25 mL into dose field and 100 mL/hr into rate field of order. For KVO fluids, enter rate of 20 mL/hr or less into rate field of order. acetaminophen (TYLENOL) suppository 650 mg(Linked Group 1) 650 mg, Rectal, EVERY 6 HOURS PRN, Starting on Wed04/21/23 at 1759, Until Discontinued, Pain Mild (1-3), Fever, For temp greater than 100.4 F (38 C), Administer if oral route cannot be used. acetaminophen (TYLENOL) tablet 650 mg(Linked Group 1) 650 mg, Oral, EVERY 6 HOURS PRN, Starting on Wed04/21/23 at 1759, Until Discontinued, Pain Mild (1-3), Fever, For temp greater than 100.4 F (38 C), Maximum dose of acetaminophen is 4000 mg from all sources in 24 hours. benzonatate (TESSALON) capsule 200 mg 200 mg, Oral, 3 TIMES DAILY PRN, Starting on Wed04/27/23 at 2026, Until Discontinued, Cough heparin (porcine) injection 4,320 Units 4,320 Units (40 Units/kg 108 kg), IntraVENous, PRN, Starting on Wed04/26/23 at 1744, Until Discontinued, Other, heparin dosing algorithm, Half dose re-bolus based on pharmacy algorithm heparin (porcine) injection 8,640 Units 8,640 Units (80 Units/kg 108 kg), IntraVENous, PRN, Starting on Wed04/26/23 at 1744, Until Discontinued, Other, heparin dosing algorithm, Full dose re-bolus based on pharmacy algorithm ipratropium 0.5 mg-albuterol 2.5 mg (DUONEB) nebulizer solution 1 Dose 1 Dose, Inhalation, EVERY 4 HOURS PRN, Starting on Wed04/26/23 at 1645, Until Discontinued, Shortness of Breath, Initiate RT Bronchodilator Protocol: Yes - Inpatient Protocol magnesium sulfate 2000 mg in 50 mL IVPB premix 2,000 mg, IntraVENous, at 25 mL/hr, Administer over 2 Hours, PRN, Other, Per IV Magnesium Replacement Protocol, Starting on Wed04/21/23 at 1759, Mg Lab Replacement Action 1.4-1.6 2 gram IVPB x 1 doses (2 gram Total) 1.0-1.3 2 gram IVPB x 2 doses (4 gram Total) less than 1.0 CALL PHYSICIAN and 2 gram IVPB x 2 doses (4 gram Total) Infuse at 1 gram/hr Repeat Mag level next AM Protocol not for use in Patients with CrCl less than 30mL/min ondansetron (ZOFRAN) injection 4 mg(Linked Group 2) 4 mg, IntraVENous, EVERY 6 HOURS PRN, Starting on Wed04/21/23 at 1759, Until Discontinued, Nausea, Vomiting, Administer if oral route cannot be used. 0904 (Given - Provider: Faith iKngston RN) 1207 (Given - Provider: Brittni Livingston, ORION) ondansetron (ZOFRAN-ODT) disintegrating tablet 4 mg(Linked Group 2) 4 mg, Oral, EVERY 8 HOURS PRN, Starting on Wed04/21/23 at 1759, Until Discontinued, Nausea, Vomiting 0904 (See Alternative - Provider: Faith Kingston RN) 1207 (See Alternative - Provider: Brittni Livingston, ORION) polyethylene glycol (GLYCOLAX) packet 17 g 17 g, Oral, DAILY PRN, Starting on Wed04/21/23 at 1759, Until Discontinued, Constipation, First line therapy for constipation potassium chloride 10 mEq/100 mL IVPB (Peripheral Line)(Linked Group 3) 10 mEq, IntraVENous, PRN, Starting on Wed04/21/23 at 1759, Until Discontinued, at 100 mL/hr, Per IV Potassium Replacement Protocol, Use when central line is not available for replacement. K Lab Replacement Action 3.1-3.5 10 mEq IVPB x 4 doses (40 mEq Total) 2.7-3.0 10 mEq IVPB x 6 doses (60 mEq Total) less than 2.7 CALL PHYSICIAN and 10 mEq IVPB x 6 doses (60 mEq Total) Infuse at 10 mEq/hr Repeat Potassium lab 1 hour after final administration. Protocol not for use in Patients with CrCl less than 30mL/min potassium chloride 20 mEq/50 mL IVPB (Central Line)(Linked Group 3) 20 mEq, IntraVENous, PRN, Starting on Wed04/21/23 at 1759, Until Discontinued, at 50 mL/hr, Per IV Potassium Replacement Protocol, Use first line when central line is available for replacement. K Lab Replacement Action 3.1-3.5 20 mEq IVPB x 2 doses (40 mEq Total) 2.7-3.0 20 mEq IVPB x 3 doses (60 mEq Total) less than 2.7 CALL PHYSICIAN and 20 mEq IVPB x 3 doses (60 mEq Total) Infuse at 20 mEq/hr Repeat Potassium lab 1 hour after final administration. Protocol not for use in Patients with CrCl less than 30mL/min sodium chloride flush 0.9 % injection 5-40 mL 5-40 mL, IntraVENous, PRN, Starting on Wed04/21/23 at 1759, Until Discontinued, Line Care, After every IV line use, For Line Patency: Peripheral IV = 5 mL; Midline or Central Line = 10 mL/lumen. If following IV push medication, administer flush at same rate as the IV push. Flush volume is determined by type of infusion therapy being given. For non-viscous solutions use: Peripheral IV = 5 mL Midline or Central Line = 10 mL/lumen For viscous solutions (i.e. blood components, parenteral nutrition, contrast media, or after obtaining blood sample) use: Peripheral IV = 10 mL Midline or Central Line = 20 mL/lumen 0055 (Given - Provider: Kaz Bravo RN) Linked Groups Order Group 1: acetaminophen (TYLENOL) tablet 650 mgJump to med 650 mg, Oral, EVERY 6 HOURS PRN, Starting on Wed04/21/23 at 1759, Until Discontinued, Pain Mild (1-3), Fever, For temp greater than 100.4 F (38 C)
Maximum dose of acetaminophen is 4000 mg from all sources in 24 hours.
Or acetaminophen (TYLENOL) suppository 650 mgJump to med 650 mg, Rectal, EVERY 6 HOURS PRN, Starting on Wed04/21/23 at 1759, Until Discontinued, Pain Mild (1-3), Fever, For temp greater than 100.4 F (38 C)
Administer if oral route cannot be used.
Group 2: ondansetron (ZOFRAN-ODT) disintegrating tablet 4 mgJump to med 4 mg, Oral, EVERY 8 HOURS PRN, Starting on Wed04/21/23 at 1759, Until Discontinued, Nausea, Vomiting Or ondansetron (ZOFRAN) injection 4 mgJump to med 4 mg, IntraVENous, EVERY 6 HOURS PRN, Starting on Wed04/21/23 at 1759, Until Discontinued, Nausea, Vomiting
Administer if oral route cannot be used.
Group 3: potassium chloride 20 mEq/50 mL IVPB (Central Line)Jump to med 20 mEq, IntraVENous, PRN, Starting on Wed04/21/23 at 1759, Until Discontinued, at 50 mL/hr, Per IV Potassium Replacement Protocol
Use first line when central line is available for replacement. K Lab Replacement Action 3.1-3.5 20 mEq IVPB x 2 doses &n bsp;& nbsp; (40 mEq Total) 2.7-3.0 20 mEq IVPB x 3 doses &n bsp;& nbsp; (60 mEq Total) less than 2.7 CALL PHYSICIAN and &nbs p;&nb sp; 20 mEq IVPB x 3 doses &n bsp;& nbsp; (60 mEq Total) Infuse at 20 mEq/hr Repeat Potassium lab 1 hour after final administration. Protocol not for use in Patients with CrCl less than 30mL/min
Or potassium chloride 10 mEq/100 mL IVPB (Peripheral Line)Jump to med 10 mEq, IntraVENous, PRN, Starting on Wed04/21/23 at 1759, Until Discontinued, at 100 mL/hr, Per IV Potassium Replacement Protocol
Use when central line is not available for replacement. K Lab Replacement Action 3.1-3.5 10 mEq IVPB x 4 doses &nbs p;&nb sp; (40 mEq Total) 2.7-3.0 10 mEq IVPB x 6 doses &n bsp;& nbsp; (60 mEq Total) less than 2.7 CALL PHYSICIAN and &n bsp;& nbsp; 10 mEq IVPB x 6 doses &n bsp;& nbsp; (60 mEq Total) Infuse at 10 mEq/hr Repeat Potassium lab 1 hour after final administration. Protocol not for use in Patients with CrCl less than 30mL/min
FOR RECORDS PERTAINING TO PATIENTS WHO ARE [...] BE BASED ON THE PRIMARY CLINICAL RECORDS. [facility]. provides no warranty or guarantee of the accuracy or completeness of information in this document.
--- NOTE | 2023-05-15 16:01 | ED.EXTPRO1 ---
HPI - Extremity Problem General Chief complaint: Extremity Problem, Nontraumatic Stated complaint: per long-term ple edema Time Seen by Provider: 05/15/23 15:49 Source: patient Mode of arrival: walk-in Limitations: no limitations History of Present Illness HPI Narrative: This patient comes to us from a rehab facility because of pain and swelling in her right leg. She has had swelling in her leg but now the leg is becoming red from just above the knee going distally. She had a knee replacement surgery done in [facility] in March. After that surgery she developed severe DVT and had severe bilateral pulmonary embolism and was taken to a tertiary facility. She is on Coumadin. She says she is really not had any redness or discomfort in the knee until today. She has not had postoperative complications or infections except for DVT as noted above but no other infections and she has not been on any antibiotics. She has not had fever, shakes, chills or aches and pains today. her temperature is normal. Vitals: Signs here are normal. Related Data Home Medications Medication Instructions Recorded Confirmed calcium carbonate 500 mg calcium 500 mg PO DAILY 11/09/22 05/15/23 (1,250 mg) tablet (Oyster Shell Calcium) cholecalciferol (vitamin D3) 50 50 mcg PO DAILY 11/09/22 05/15/23 mcg (2,000 unit) capsule potassium chloride 10 mEq 10 meq PO DAILY 11/09/22 05/15/23 capsule,extended release sertraline 25 mg tablet 25 mg PO DAILY 11/09/22 05/15/23 aspirin 325 mg tablet,delayed 325 mg PO DAILY 04/21/23 05/15/23 release docusate sodium 100 mg capsule 100 mg PO BID 04/21/23 05/15/23 (Colace) guaifenesin 1,200 mg tablet, 1,200 mg PO DAILY 04/21/23 05/15/23 extended release 12 hr (Mucinex) ondansetron 4 mg disintegrating 4 mg PO Q4H 04/21/23 05/15/23 tablet oxycodone-acetaminophen 5 mg-325 1 tab PO Q6H 04/21/23 05/15/23 mg tablet ammonium lactate 12 % lotion 1 applic topical DAILY 05/15/23 05/15/23 pantoprazole 40 mg tablet,delayed 40 mg PO DAILY 05/15/23 05/15/23 release Allergies Allergy/AdvReac Type Severity Reaction Status Date / Time phenytoin [From Dilantin] Allergy Unknown Verified 04/21/23 13:15 Exam Narrative Exam Narrative: Very pleasant female awake alert and orient x 3 temperature pulse vitals are noted she is afebrile she has no respiratory distress no shortness of breath no chest discomfort at this time. Examination of her right lower extremity shows surgical incision to be intact. There is no joint effusion. The joint is not particularly warm to palpation the entire lower leg from the knee distally is slightly warm and erythematous. There is no petechiae or purpura. Pulses are strong to the distal extremity. She has minimal discomfort with movement of her knee. Her opposite extremity on the left lower leg appears completely normal. She confides that in fact that right leg was normal-looking yesterday but it is warm and red today. Rest her examination was unremarkable her perfusion extremities is normal there is no pallor or diaphoresis. Neurologically she is intact. She is here with another family member. Constitutional Vital Signs, click to edit/add: Last Vital Signs Temp 98.1 F 05/15/23 15:35 Pulse 82 05/15/23 15:35 Resp 22 05/15/23 15:35 BP 159/70 H 05/15/23 17:01 Pulse Ox 98 05/15/23 17:01 O2 Del Method Room Air 05/15/23 15:35 Course Vital Signs Vital signs: Vital Signs Temperature 98.1 F 05/15/23 15:35 Pulse Rate 82 05/15/23 15:35 Respiratory Rate 22 05/15/23 15:35 Blood Pressure 172/82 H 05/15/23 15:35 Pulse Oximetry 97 05/15/23 15:35 Oxygen Delivery Method Room Air 05/15/23 15:35 Temperature 98.1 F 05/15/23 15:35 Pulse Rate 82 05/15/23 15:35 Respiratory Rate 22 05/15/23 15:35 Blood Pressure 159/70 H 05/15/23 17:01 Pulse Oximetry 98 05/15/23 17:01 Oxygen Delivery Method Room Air 05/15/23 15:35 MDM - Extremity (Nontraumatic) MDM Narrative Medical decision making narrative: This patient's white blood cell count is normal and there is no left shift or bandemia. X-ray does not show any free air or effusion in this joint. Her basic chemistry profile was unremarkable. At this stage my clinical impression is that this is likely a skin and soft tissue infection with less likelihood of a joint infection. Nonetheless our hospitalist at this hospital believes this should be sent to the hospital where the surgery was done for evaluation at that facility. When I spoke to the hospitalist at [facility], , he states that if the joints infected they are not equipped to take care of an infected joint and the patient should be sent to a different facility so he declines admission at that hospital. This was explained to the family and so we contacted a tertiary facility where she had her pulmonary embolism taking care of. They do have a bed with orthopedics and infectious disease consultation at [facility] in [place] and I spoke with the hospitalist at that facility. We described the surgical procedure the subsequent pulmonary embolism and laboratory findings today. He is gladly accepted patient in transfer. The patient's vitals here are stable and she is getting vancomycin at this time. Lab Data Labs: Lab Results 05/15/23 Range/Units 16:20 WBC 5.8 (4.0-11.0) 10^3/uL RBC 3.54 L (4.20-5.40) 10^6/uL Hgb 10.4 L (12.0-16.0) g/dL Hct 34.1 L (36.0-48.0) % MCV 96.3 (81.0-99.0) fL MCH 29.4 (26.7-34.0) pg MCHC 30.5 (29.9-35.2) g/dL RDW 14.7 (11.0-15.0) % Plt Count 312 (150-450) 10^3/uL MPV 9.7 (9.5-13.5) fL Neut % (Auto) 60.7 (43.0-75.0) % Lymph % (Auto) 27.8 (20.5-60.0) % [place] % (Auto) 11.3 (1.7-12.0) % Eos % (Auto) 0.0 L (0.9-7.0) % Baso % (Auto) 0.0 L (0.2-2.0) % Neut # (Auto) 3.5 (1.4-6.5) 10^3/uL Lymph # (Auto) 1.6 (1.2-3.8) 10^3/uL [place] # (Auto) 0.7 (0.3-0.8) 10^3/uL Eos # (Auto) 0.0 (0.0-0.7) 10^3/uL Baso # (Auto) 0.0 (0.0-0.1) 10^3/uL Abs Immat Gran (auto) 0.01 (0.00-0.03) 10^3/uL Imm/Tot Granulo (auto) 0.2 (0.0-0.5) % PT 15.7 H (9.0-11.6) sec INR 1.52 Sodium 147 H (136-145) mmol/L Potassium 3.8 (3.5-5.1) mmol/L Chloride 108 H (98-107) mmol/L Carbon Dioxide 30.1 (21.0-32.0) mmol/L Anion Gap 12.7 BUN 15.0 (7.0-18.0) mg/dL Creatinine 0.84 (0.55-1.02) mg/dL Est GFR ( Amer) >60 (>=60) Est GFR (Non-Af Amer) >60 (>=60) BUN/Creatinine Ratio 17.9 Glucose 113 H (74-106) mg/dL Lactate 1.6 (0.4-2.0) mmol/L Calcium 9.0 (8.5-10.1) mg/dL Total Bilirubin 0.3 (0.2-1.0) mg/dL AST 12 L (15-37) U/L ALT 15 (14-59) U/L Alkaline Phosphatase 126 H (46-116) U/L Total Protein 6.6 (6.4-8.2) g/dL Albumin 3.0 L (3.4-5.0) g/dL Globulin 3.6 g/dL Albumin/Globulin Ratio 0.8 Discharge Plan Discharge Chief Complaint: Extremity Problem, Nontraumatic Clinical Impression: Cellulitis of leg, right Patient Disposition: [facility] Time of Disposition Decision: 18:04 Prescriptions / Home Meds: No Action aspirin 325 mg tablet,delayed release (DR/EC) 325 mg PO DAILY docusate sodium [Colace] 100 mg capsule 100 mg PO BID guaifenesin [Mucinex] 1,200 mg tablet extended release 12hr 1,200 mg PO DAILY ondansetron 4 mg tablet,disintegrating 4 mg PO Q4H Rx Instructions: give 1st dose 30min before emetogenic chemo oxycodone-acetaminophen 5-325 mg tablet 1 tab PO Q6H pantoprazole 40 mg tablet,delayed release (DR/EC) 40 mg PO DAILY ammonium lactate 12 % lotion 1 applic TOPICAL DAILY calcium carbonate [Oyster Shell Calcium] 500 mg calcium (1,250 mg) tablet 500 mg PO DAILY sertraline 25 mg tablet 25 mg PO DAILY cholecalciferol (vitamin D3) 50 mcg (2,000 unit) capsule 50 mcg PO DAILY potassium chloride 10 mEq capsule, extended release 10 meq PO DAILY Referrals: Gretel Esqueda MD [Primary Care Provider] - 1 week
--- NOTE | 2023-05-15 16:03 | XR_ITS ---
The [address] [address] Patient Name: MASSIEL ELLIOTT MRN: [id number] date: 1965 Sex: F Assigned Patient Location: ER Current Patient Location: ER Accession/Order Number: [id number] Exam Date: 05/15/2023 16:45 Report Date: 05/15/2023 17:35 At the request of: ALISA BERMUDEZ Procedure: XR chest 1V CXR HISTORY: Shortness of breath COMPARISON: None. TECHNIQUE: 1 view chest submitted for review. FINDINGS: 24 mm air space opacity vs nodule in the RLL. The lungs are adequately expanded without effusion. The cardiac silhouette measures within normal. Pulmonary vascularity is minimally prominent. Osseous structures do not demonstrate any acute abnormality. XR/XR chest 1V IMPRESSION: 24 mm air space opacity vs nodule in the RLL. Please correlate for pneumonia vs nodule. Electronically authenticated by: ROC BEAL Date: 05/15/2023 17:35
--- NOTE | 2023-05-15 16:03 | XR_ITS ---
The [address] [address] Patient Name: MASSIEL ELLIOTT MRN: [id number] date: 1965 Sex: F Assigned Patient Location: ER Current Patient Location: ER Accession/Order Number: [id number] Exam Date: 05/15/2023 16:45 Report Date: 05/15/2023 17:30 At the request of: ALISA BERMUDEZ Procedure: XR knee RT 2V EXAM: XR knee RT 2V HISTORY: Swelling COMPARISON: 04/16/2022. TECHNIQUE: Portable AP supine, crosstable lateral x-ray right knee FINDINGS: Multiple knee arthroplasty with intact hardware. Opaque cement. No fracture or focal bone lesion. No definite joint effusion. Subcutaneous edema. XR/XR knee RT 2V IMPRESSION: Knee replacement hardware appears intact. Negative for fracture or joint effusion. Electronically authenticated by: AMRISA PLASENCIA Date: 05/15/2023 17:30
--- OUTSIDE RECORDS SUMMARY | 2023-05-15 16:16 | XMS_ITS | CCD ---
Author Name Unknown Address [address] [place] [address] Organization [facility] Care Team Providers Care Taxation Inspector Name Role Phone Cassie Lorenz Unavailable GERDA, [...] Unavailable LORENZ, DR CASSIE Jaramillo Admitting Unavailable LORENZ, DR CASSIE Jaramillo Attending Unavailable CASSIE LORENZ Primary Care Physician LUCY MENENDEZ Attending Unavailable NOLA ZUNIGA Referring Unavailable [...] SCHWARTZ Consulting Unavailable RAYO PATEL Consulting Unavailable EIMLY LOPES Consulting Unavailable MATEUS, LUISITO LOPEZ Consulting [...] Facility (15 sources) diphenhydrAMINE Drug Allergy Unknown [employer] Other (17 sources) Phenytoin; Translations: [phenytoin] Drug Allergy 04-21-19 24 Unknown, Rash [facility] (15 sources) Seasonal allergy Propensity to adverse reactions Unknown [employer] Other (3 sources) Phenytoin; Translations: [Dilantin] Drug Allergy 05-26-19 15 [facility] Repository Medications Current Medications Medication [...] daily 0 Active take 1 tablet by [facility] twice daily at mealtime Oyster Calcium [...] MG Orally Active take 1 capsule by [facility] twice daily cefTRIAXone (ROCEPHIN) 1000 mg in [...] for 90 Active take 1 capsule by [facility] every twenty-four hours Vitamin D3 50 MCG (1999 [place]) 1 capsule Or ally Once a day Active ciprofloxacin 500 mg oral tablet (8 sources) Quinolone Antimicrobial Start: 03-13-2015 take 1 tablet by mouth every twelve hours docusate sodium 100 mg oral capsule (8 sources) Start: 04-22-2023 docusate sodiu m (COLACE) capsule 100 mg take 1 capsule by [facility] every twenty-four hours Colace 100 MG 1 capsule as needed Orally Once a day Active famotidine 20 mg oral tablet (17 sources) Histamine-2 Receptor Antagonist Start: 03-17-2023 End: 04-27-2023 take 1 tablet by mouth twice daily famotidine 20 mg Tab 20 mg = 1 tab(s), Oral, BID, Refills(s) 0, Control of stomach acid Start Date: 03/17/23 Status: Ordered take 1 tablet by [facility] every twenty-four hours Famotidine 20 MG [...] tablet by pepper once daily Potassium Chloride (Unt-Tyqq-Aqz 10) 10 mEq oral tablet, extended release 10 mEq = 1 tab(s), Oral, Daily, Refills(s) 0, Prophylaxis Start Date: 03/17/23 Status: Ordered take 1 tablet by pepper once daily Potassium Chloride ER 10 MEQ TAKE 1 TABLET BY MOUTH EVERY DAY for 90 Active take 1 capsule by mo [facility] once daily potassium chloride (MICRO-K) 10 MEQ [...] (SOLU-MEDROL) injection 40 mg polyethylene glycol 3350 14082 mg powder for oral solution (1 source) [...] Reference Range Facility Discharge Instructionson Discharge Instructions [id number]#1.00T IFF Normal [facility] Transfer Documentson 024 Transfer Documents [id number]#[id number] IFF Normal [facility] Anti-Xa, Unfractionated Hepa rinon 04-28-2023 Anti-XA Unfrac Heparin <0.10 IU/L [facility] Basic Metabolic Panelon Anion gap [Moles/Vol] 9 mmol/L 9 - 17 mmol/L [facility] Calcium [Mass/Vol] 8.7 mg/dL 8.6 - 10. 4 mg/dL [facility] Chloride [Moles/Vol] 99 mmol/L 98 - 10 7 mmol/L [facility] CO2 [Moles/Vol] 28 mmol/L 20 - 31 mmol/L [facility] Creatinine [Mass/Vol] 0.5 mg/dL 0.5 - 0.9 mg/dL [facility] GFR/1.73 sq M.predicted MDRD (S/P/Bld) [Vol rate/Area] - PINF [facility] Comment on above: These results are not [...] 119 mg/dL High 70 - 99 mg/dL [facility] Interpretation and review of laboratory results Abnormal [facility] Potassium [Moles/Vol] 4.1 mmol/L 3.7 - 5.3 mmol/L [facility] Sodium [Moles/Vol] 136 mmol/L 135 - 144 mmol/L [facility] Urea nitrogen [Mass/Vol] 13 mg/dL 6 - 20 mg/dL [facility] Basic Metabolic Profon 04-28 Anion gap [Moles/Vol] 9 mmol/L Normal 9-17 [facility] Comment on above: Performed By: #### B MARK FORD, PT #### [facility] [address] [place] [address] Tar Processing Technician: Romel Clemons MD Calcium [Mass/Vol] 8.7 mg/dL Normal 8.6-10.4 [facility] Comment on above: Performed By: #### B MARK FORD, PT #### [facility] [address] [place] [address] Tar Processing Technician: Romel Clemons MD Chloride [Moles/Vol] 99 mmol/L Normal 98-107 [facility] Comment on above: Performed By: #### B MARK FORD, PT #### [facility] [address] [place] [address] Tar Processing Technician: Romel Clemons MD CO2 [Moles/Vol] 28 mmol/L Normal 20-31 [facility] Comment on above: Performed By: #### B MARK FORD, PT #### [facility] [address] [place] [address] Tar Processing Technician: Romel Clemons MD Creatinine [Mass/Vol] 0.5 mg/dL Normal 0.5-0.9 [facility] Comment on above: Performed By: #### B MARK FORD, PT #### [facility] [address] [place] [address] Tar Processing Technician: Romel Clemons MD GFR/1.73 sq M.predicted among non-blacks MDRD (S/P/Bld) [Vol rate/Area] mL/min/{1.73_m2} Normal >60 [facility] Comment on above: Result Comment: These results [...] B MARK FORD, PT #### [facility] [address] [place] [address]54 Tar Processing Technician: Romel Clemons MD Glucose [Mass/Vol] 119 mg/dL High 70-99 [facility] Comment on above: Performed By: #### B MARK FORD, PT #### [facility] [address] [place] [address]85 Tar Processing Technician: Rmoel Clemons MD Potassium [Moles/Vol] 4.1 mmol/L Normal 3.7-5.3 [facility] Comment on above: Performed By: #### B MAKR FORD, PT #### [facility] [address] [place] [address] Tar Processing Technician: Romel Clemons MD Sodium [Moles/Vol] 136 mmol/L Normal 135-144 [facility] Comment on above: Performed By: #### B MARK FORD, PT #### [facility] [address] [place] [address] Tar Processing Technician: Romel Clemons MD Urea nitrogen [Mass/Vol] 13 mg/dL Normal 6-20 [facility] Comment on above: Performed By: #### B MARK FORD, PT #### [facility] [address] [place] [address] 19403 Tar Processing Technician: Romel Clemons MD CBCon 04-28-2023 Erythrocyte distribution width (RBC) [Ratio] 13.9 % Normal 11.8-14.4 [facility] Comment on above: Performed By: #### B MARK FORD, PT #### [facility] [address] [place] [address] 61003 Tar Processing Technician: Romel Clemons MD Hematocrit (Bld) [Volume fraction] 30.1 % Low 36.3-47.1 [facility] Comment on above: Performed By: #### B MARK FORD, PT #### [facility] [address] [place] [address]3009 Tar Processing Technician: Romel Clemons MD Hemoglobin (Bld) [Mass/Vol] 9.5 g/dL Low 11.9-15.1 [facility] Comment on above: Performed By: #### B MARK FORD, PT #### [facility] [address] [place] [address] 61538 Tar Processing Technician: Romel Clemons MD MCH (RBC) [Entitic mass] 30.1 pg Normal 25.2-33.5 [facility] Comment on above: Performed By: #### B MARK FORD, PT #### [facility] [address] [place] [address]1202 Tar Processing Technician: Romel Clemons MD MCHC (RBC) [Mass/Vol] 31.6 g/dL Normal 28.4-34.8 [facility] Comment on above: Performed By: #### B MARK FORD, PT #### [facility] [address] [place] [address]98[address] Tar Processing Technician: Romel Clemons MD MCV (RBC) [Entitic vol] 95.3 fL Normal 82.6-102.9 [facility] Comment on above: Performed By: #### B MARK FORD, PT #### [facility] [address] [place] [address] 50114 Tar Processing Technician: Romel Clemons MD NRBC Automated 0.0 per 100 WBC Normal 0.0 [facility] Comment on above: Performed By: #### B MARK FORD, PT #### [facility] [address] [place] [address] 01207 Tar Processing Technician: Romel Clemons MD Platelet mean volume (Bld) [Entitic vol] 9.4 fL Normal 8.1-13.5 [facility] Comment on above: Performed By: #### B MARK FORD, PT #### [address] [address] Tar Processing Technician: Romel Clemons MD Platelets (Bld) [#/Vol] 340 10*3/uL Normal 138-453 [facility] Comment on above: Performed By: #### B MARK FORD, PT #### [address] [address] Tar Processing Technician: Romel Clemons MD RBC (Bld) [#/Vol] 3.16 10*6/uL Low 3.95-5.11 [facility] Comment on above: Performed By: #### B MARK FORD, PT #### [address] [address] Tar Processing Technician: Romel Clemons MD WBC (Bld) [#/Vol] 8.4 10*3/uL Normal 3.5-11.3 [facility] Comment on above: Performed By: #### B MARK FORD, PT #### [address] [address] Tar Processing Technician: Romel Clemons MD Erythrocyte distribution width (RBC) [Ratio] 13.9 % 11.8 - 14.4 % [facility] Hematocrit (Bld) [Volume fraction] 30.1 % Low 36.3 - 47.1 % [facility] Hemoglobin (Bld) [Mass/Vol] 9.5 g/dL Low 11.9 - 15.1 g/dL [facility] Interpretation and review of laboratory results Abnormal [facility] MCH (RBC) [Entitic mass] 30.1 pg 25.2 - 33.5 pg [facility] MCHC (RBC) [Mass/Vol] 31.6 g/dL 28.4 - 34.8 g/dL [facility] MCV (RBC) [Entitic vol] 95.3 fL 82.6 - 102.9 fL [facility] Nucleated RBC/100 WBC (Bld) [Ratio] 0.0 % 0.0 per 100 WBC [facility] Platelet mean volume (Bld) [Entitic vol] 9.4 fL 8.1 - 13.5 fL [facility] Platelets (Bld) [#/Vol] 340 10*3/uL [facility] RBC (Bld) [#/Vol] 3.16 10*6/uL Low 3.95 - 5.1 1 m/uL [facility] WBC other (Bld) [#/Vol] 8.4 [facility] Heparin Anti-Xaon 04-28-2023 Heparin Anti-Xa <0.10 Normal [facility] Comment on above: Performed By: #### B MP, CDP, PT #### [facility] [place] [address] Tar Processing Technician: Romel Clemons MD No Panel Informationon 04-28 [facility] PTon 04-28-2023 INR Coag (PPP) [Relative time] 2.7 {INR} Normal [facility] Comment on above: Result Comment: Therapeutic Range: Moderate Anticoagulant Intensity: INR = 2.0-3.0 High Anticoagulant Intensity: INR = 2.5-3.5 Performed By: #### B MP, CDP, PT #### [facility] [address] [place], [place] [id number] Tar Processing Technician: Romel Clemons MD PT Coag (PPP) [Time] 28.6 s High 11.7-14.9 [facility] Comment on above: Performed By: #### B MP, CDP, PT #### [facility] [address] [place], [place] [id number] Tar Processing Technician: Romel Clemons MD Protime-INRon 04-28-2023 INR Coag (PPP) [Relative time] 2.7 {INR} [facility] Comment on above: Therapeutic Range: Moderate Anticoagulant Intensity: INR = 2.0-3.0 High Anticoagulant Intensity: INR = 2.5-3.5 Interpretation and review of laboratory results Abnormal [facility] PT Coag (PPP) [Time] 28.6 s High [facility] Anti-Xa, Unfractionated Hepa rinon 04-27-2023 Anti-XA Unfrac Heparin <0.10 IU/L [facility] Anti-XA Unfrac Heparin <0.10 IU/L [facility] Anti-XA Unfrac Heparin 0.51 IU/L [facility] Anti-XA Unfrac Heparin 1.43 IU/L [facility] Basic Metabolic Panelon Anion gap [Moles/Vol] 10 mmol/L 9 - 17 mmol/L [facility] Calcium [Mass/Vol] 9.0 mg/dL 8.6 - 10. 4 mg/dL [facility] Chloride [Moles/Vol] 103 mmol/L 98 - 10 7 mmol/L [facility] CO2 [Moles/Vol] 25 mmol/L 20 - 31 mmol/L [facility] Creatinine [Mass/Vol] 0.5 mg/dL 0.5 - 0.9 mg/dL [facility] GFR/1.73 sq M.predicted MDRD (S/P/Bld) [Vol rate/Area] - PINF [facility] Comment on above: These results are not [...] 132 mg/dL High 70 - 99 mg/dL [facility] Interpretation and review of laboratory results Abnormal [facility] Potassium [Moles/Vol] 4.4 mmol/L 3.7 - 5.3 mmol/L [facility] Sodium [Moles/Vol] 138 mmol/L 135 - 144 mmol/L [facility] Urea nitrogen [Mass/Vol] 12 mg/dL 6 - 20 mg/dL [facility] Basic Metabolic Profon 04-27 Anion gap [Moles/Vol] 10 mmol/L Normal 9-17 [facility] Comment on above: Performed By: #### H EPXA, PT #### [facility] [address] [place] [address] Tar Processing Technician: Romel Clemons MD Calcium [Mass/Vol] 9.0 mg/dL Normal 8.6-10.4 [facility] Comment on above: Performed By: #### H EPXA, PT #### [facility] [address] [place], [place] [id number] Tar Processing Technician: Romel Clemons MD Chloride [Moles/Vol] 103 mmol/L Normal 98-107 [facility] Comment on above: Performed By: #### H EPXA, PT #### [facility] [address] [place] [address] [phone] Tar Processing Technician: Romel Clemons MD CO2 [Moles/Vol] 25 mmol/L Normal 20-31 [facility] Comment on above: Performed By: #### H EPXA, PT #### [facility] [address] [place] [address] Tar Processing Technician: Romel Clemons MD Creatinine [Mass/Vol] 0.5 mg/dL Normal 0.5-0.9 [facility] Comment on above: Performed By: #### H EPXA, PT #### [facility] [address] [place] [address] Tar Processing Technician: Romel Clemons MD GFR/1.73 sq M.predicted among non-blacks MDRD (S/P/Bld) [Vol rate/Area] mL/min/{1.73_m2} Normal >60 [facility] Comment on above: Result Comment: These results [...] Performed By: #### H EPXA, PT #### [facility] [address] [place] [address] Tar Processing Technician: Romel Clemons MD Glucose [Mass/Vol] 132 mg/dL High 70-99 [facility] Comment on above: Performed By: #### H EPXA, PT #### [facility] [address] [place] [address]26 Tar Processing Technician: Romel Clemons MD Potassium [Moles/Vol] 4.4 mmol/L Normal 3.7-5.3 [facility] Comment on above: Performed By: #### H EPXA, PT #### [facility] [address] [place] [address] Tar Processing Technician: Romel Clemons MD Sodium [Moles/Vol] 138 mmol/L Normal 135-144 [facility] Comment on above: Performed By: #### H EPXA, PT #### [address] [address] Tar Processing Technician: Romel Clemons MD Urea nitrogen [Mass/Vol] 12 mg/dL Normal 6-20 [facility] Comment on above: Performed By: #### H EPXA, PT #### [address] [address] Tar Processing Technician: Romel Clemons MD Comp Metabolic Profon 2023 Albumin [Mass/Vol] 3.3 g/dL Low 3.5-5.2 [facility] Comment on above: Performed By: #### C P #### [address] [address] Tar Processing Technician: Romel Clemons MD Albumin/Glob Ratio 1.1 Normal 1.0-2.5 [facility] Comment on above: Performed By: #### C P #### [address] [address] Tar Processing Technician: Romel Clemons MD Alkaline Phos 108 U/L High 35-104 [facility] Comment on above: Performed By: #### C P #### [address] [address] Tar Processing Technician: Romel Clemons MD ALT [Catalytic activity/Vol] 19 U/L Normal 5-33 [facility] Comment on above: Performed By: #### C P #### [address] [address] Tar Processing Technician: Romel Clemons MD Anion gap [Moles/Vol] 9 mmol/L Normal 9-17 [facility] Comment on above: Performed By: #### C P #### [address] [address] Tar Processing Technician: Romel Clemons MD AST [Catalytic activity/Vol] 19 U/L Normal <32 [facility] Comment on above: Performed By: #### C P #### [address] [address] Tar Processing Technician: Romel Clemons MD Bilirubin [Mass/Vol] 0.2 mg/dL Low 0.3-1.2 [facility] Comment on above: Performed By: #### C P #### [address] [address] Tar Processing Technician: Romel Clemons MD Calcium [Mass/Vol] 9.0 mg/dL Normal 8.6-10.4 [facility] Comment on above: Performed By: #### C P #### [address] [address] Tar Processing Technician: Romel Clemons MD Chloride [Moles/Vol] 105 mmol/L Normal 98-107 [facility] Comment on above: Performed By: #### C P #### [address] [address] Tar Processing Technician: Romel Clemons MD CO2 [Moles/Vol] 26 mmol/L Normal 20-31 [facility] Comment on above: Performed By: #### C P #### [address] [address] Tar Processing Technician: Romel Clemons MD Creatinine [Mass/Vol] 0.7 mg/dL Normal 0.5-0.9 [facility] Comment on above: Performed By: #### C P #### [address] [address] Tar Processing Technician: Romel Clemons MD GFR/1.73 sq M.predicted among non-blacks MDRD (S/P/Bld) [Vol rate/Area] mL/min/{1.73_m2} Normal >60 [facility] Comment on above: Result Comment: These results [...] secretion. Performed By: #### C P #### [address] [address] Tar Processing Technician: Romel Clemons MD Glucose [Mass/Vol] 115 mg/dL High 70-99 [facility] Comment on above: Performed By: #### C P #### [address] [address] Tar Processing Technician: Romel Clemons MD Potassium [Moles/Vol] 3.9 mmol/L Normal 3.7-5.3 [facility] Comment on above: Performed By: #### C P #### [address] [address] Tar Processing Technician: Romel Clemons MD Protein [Mass/Vol] 6.4 g/dL Normal 6.4-8.3 [facility] Comment on above: Performed By: #### C P #### [address] [address] Tar Processing Technician: Romel Clemons MD Sodium [Moles/Vol] 140 mmol/L Normal 135-144 [facility] Comment on above: Performed By: #### C P #### [address] [address] Tar Processing Technician: Romel Clemons MD Urea nitrogen [Mass/Vol] 12 mg/dL Normal 6-20 [facility] Comment on above: Performed By: #### C P #### [address] [address] Tar Processing Technician: Romel Clemons MD Comprehensive Metabolic Pane veronique 04-27-2023 Albumin [Mass/Vol] 3.3 g/dL Low 3.5 - 5.2 g/dL [facility] Albumin/Globulin [Mass ratio] 1.1 {ratio} 1.0 - 2.5 [facility] ALP [Catalytic activity/Vol] 108 U/L High 35 - 104 U/L [facility] ALT [Catalytic activity/Vol] 19 U/L 5 - 33 U/L [facility] Anion gap [Moles/Vol] 9 mmol/L 9 - 17 mmol/L [facility] AST [Catalytic activity/Vol] 19 U/L NINF - 32 U/L [facility] Bilirubin [Mass/Vol] 0.2 mg/dL Low 0.3 - 1 .2 mg/dL [facility] Calcium [Mass/Vol] 9.0 mg/dL 8.6 - 10. 4 mg/dL [facility] Chloride [Moles/Vol] 105 mmol/L 98 - 10 7 mmol/L [facility] CO2 [Moles/Vol] 26 mmol/L 20 - 31 mmol/L [facility] Creatinine [Mass/Vol] 0.7 mg/dL 0.5 - 0.9 mg/dL [facility] GFR/1.73 sq M.predicted MDRD (S/P/Bld) [Vol rate/Area] - PINF [facility] Comment on above: These results are not [...] 115 mg/dL High 70 - 99 mg/dL [facility] Interpretation and review of laboratory results Abnormal [facility] Potassium [Moles/Vol] 3.9 mmol/L 3.7 - 5.3 mmol/L [facility] Protein [Mass/Vol] 6.4 g/dL 6.4 - 8.3 g/dL [facility] Sodium [Moles/Vol] 140 mmol/L 135 - 144 mmol/L [facility] Urea nitrogen [Mass/Vol] 12 mg/dL 6 - 20 mg/dL [facility] Heparin Anti-Xaon 04-27-2023 Heparin Anti-Xa <0.10 Normal [facility] Comment on above: Performed By: #### B MARK FORD, PT #### [facility] [address] [place] [address] Tar Processing Technician: Romel Clemons MD Heparin Anti-Xa <0.10 [facility] Comment on above: Performed By: #### H EPXA #### [facility] [address] [place] [address] Tar Processing Technician: Romel Clemons MD Heparin Anti-Xa 0.51 IU/L [facility] Comment on above: Performed By: #### H EPXA, PT #### [facility] [address] [place] [address] Tar Processing Technician: Romel Clemons MD Heparin Anti-Xa 1.43 IU/L [facility] Comment on above: Performed By: #### B MARK FORD, PT #### [facility] [address] [place] [address] Tar Processing Technician: Romel Clemons MD No Panel Informationon 04-27 [facility] PTon 04-27-2023 INR Coag (PPP) [Relative time] 2.4 {INR} Normal [facility] Comment on above: Result Comment: Therapeutic Range: Moderate Anticoagulant Intensity: INR = 2.0-3.0 High Anticoagulant Intensity: INR = 2.5-3.5 Performed By: #### H EPXA, PT #### [facility] [address] [place] [address] Tar Processing Technician: Romel Clemons MD PT Coag (PPP) [Time] 26.0 s High 11.7-14.9 [facility] Comment on above: Performed By: #### H EPXA, PT #### [facility] [address] [place] [address] Tar Processing Technician: Romel Clemons MD Protime-INRon 04-27-2023 INR Coag (PPP) [Relative time] 2.4 {INR} [facility] Comment on above: Therapeutic Range: Moderate Anticoagulant Intensity: INR = 2.0-3.0 High Anticoagulant Intensity: INR = 2.5-3.5 Interpretation and review of laboratory results Abnormal [facility] PT Coag (PPP) [Time] 26.0 s High [facility] Vascular duplex lower extrem ity arteries left with ABIon 04-27-2023 Body surface area Derived from formula 2.29 m2 [facility] Left LYNDON mid PSV 87.5 cm/s [facility] Left ADOLESCENT MEDICINE SPECIALIST prox PSV 116.0 cm/s [facility] Left ADOLESCENT MEDICINE SPECIALIST tj ratio 0.85 [facility] [...] ratio 1.25 [facility] Left NATURAL HISTORY COLLECTIONS CURATOR mid PSV 98.8 cm/s [facility] [...] vein thrombosis in the left tibioperoneal trunk. Kelly Machine Operator Details A chung scale, color Doppler imaging and spectral Doppler analysis ultrasound was performed. During the study longitudinal and transverse views were obtained. Pulsed wave doppler was performed. [facility] CV CPACS [facility] [employer] iClinical Vascular lower arterial comp lete physiologic Doppler at reston 04-27-2023 Body surface area Derived from formula 2.29 m2 [facility] [employer] Left ESTEBAN 1.24 [facility] [employer] Left ankle BP 173 mmHg [facility] [employer] Left arm BP 139 mmHg [facility] [employer] Left dorsalis pedis BP 173 mmHg [facility] [employer] Left posterior tibial 173 mmHg [facility] Left TBI 0.91 [facility] Left toe pressure 127 mmHg [facility] Right ESTEBAN 1.30 [facility] Right ankle BP 175 mmHg [facility] Right dorsalis pedis BP 181 mmHg [facility] Right posterior tibial 175 mmHg [facility] Right TBI 1.27 [facility] Right toe pressure 177 mmHg [facility] Right side findings: Resting ESTEBAN is 1.30. Resting TBI is 1.27. Normal range. Left side findings: Resting ESTEBAN is 1.24. Resting TBI is 0.91. Normal range. [employer] Machine Operator Details Pulsed volume recording (PVR) and photo plethysmography was performed. [facility] CV CPACS [facility] Radiology Study observation (narrative) [facility] APTTon 04-26-2023 aPTT Coag (Bld) [Time] 43.5 s High 23.0-36.5 [facility] Comment on above: Result Comment: IV Heparin Therapy Range: 66.0-92.0 sec Performed By: #### H EPXA, PT #### [facility] [place] [id number] Tar Processing Technician: Romel Clemons MD aPTT Coag (Bld) [Time] 43.5 s High [facility] Comment on above: IV Heparin Therapy Range: 66.0-92.0 sec Interpretation and review of laboratory results Abnormal [facility] Anti-Xa, Unfractionated Hepa rinon 04-26-2023 Anti-XA Unfrac Heparin <0.10 IU/L [facility] Basic Metabolic Panelon Anion gap [Moles/Vol] 10 mmol/L 9 - 17 mmol/L [facility] Calcium [Mass/Vol] 8.7 mg/dL 8.6 - 10. 4 mg/dL [facility] Chloride [Moles/Vol] 101 mmol/L 98 - 10 7 mmol/L [facility] CO2 [Moles/Vol] 26 mmol/L 20 - 31 mmol/L [facility] Creatinine [Mass/Vol] 0.5 mg/dL 0.5 - 0.9 mg/dL [facility] GFR/1.73 sq M.predicted MDRD (S/P/Bld) [Vol rate/Area] - PINF [facility] Comment on above: These results are not [...] 131 mg/dL High 70 - 99 mg/dL [facility] Interpretation and review of laboratory results Abnormal [facility] Potassium [Moles/Vol] 4.2 mmol/L 3.7 - 5.3 mmol/L [facility] Sodium [Moles/Vol] 137 mmol/L 135 - 144 mmol/L [facility] Urea nitrogen [Mass/Vol] 10 mg/dL 6 - 20 mg/dL [facility] Basic Metabolic Profon 04-26 Anion gap [Moles/Vol] 10 mmol/L Normal 9-17 [facility] Comment on above: Performed By: #### B MARK FORD, PT #### [facility] [address] [place] [address] Tar Processing Technician: Romel Clemons MD Calcium [Mass/Vol] 8.7 mg/dL Normal 8.6-10.4 [facility] Comment on above: Performed By: #### B MARK FORD, PT #### [facility] [address] [place] [address]35 Tar Processing Technician: Romel Clemons MD Chloride [Moles/Vol] 101 mmol/L Normal 98-107 [facility] Comment on above: Performed By: #### B MARK FORD, PT #### [facility] [address] [place] [address] 28010 Tar Processing Technician: Romel Clemons MD CO2 [Moles/Vol] 26 mmol/L Normal 20-31 [facility] Comment on above: Performed By: #### B MARK FORD, PT #### [facility] [address] [place] [address] 75008 Tar Processing Technician: Romel Clemons MD Creatinine [Mass/Vol] 0.5 mg/dL Normal 0.5-0.9 [facility] Comment on above: Performed By: #### B MARK FORD, PT #### [facility] [address] [place] [address] 28393 Tar Processing Technician: Romel Clemons MD GFR/1.73 sq M.predicted among non-blacks MDRD (S/P/Bld) [Vol rate/Area] mL/min/{1.73_m2} Normal >60 [facility] Comment on above: Result Comment: These results [...] B MARK FORD, PT #### [facility] [address] [place] [address] 70453 Tar Processing Technician: Romel Clemons MD Glucose [Mass/Vol] 131 mg/dL High 70-99 [facility] Comment on above: Performed By: #### B MARK FORD, PT #### [facility] [address] [place] [address] 14079 Tar Processing Technician: Romel Clemons MD Potassium [Moles/Vol] 4.2 mmol/L Normal 3.7-5.3 [facility] Comment on above: Performed By: #### B MARK FORD, PT #### [facility] [address] [place] [address] 99965 Tar Processing Technician: Romel Clemons MD Sodium [Moles/Vol] 137 mmol/L Normal 135-144 [facility] Comment on above: Performed By: #### B MARK FORD, PT #### [facility] [address] [place] [address] 43389 Tar Processing Technician: Romel Clemons MD Urea nitrogen [Mass/Vol] 10 mg/dL Normal 6-20 [facility] Comment on above: Performed By: #### B MP, CDP, PT #### [facility] [address] [place] [address] 27010 Tar Processing Technician: Romel Clemons MD Brain Natri. Peptideon 04-26 Natriuretic peptide B (Bld) [Mass/Vol] 6197 pg/mL High <300 [facility] Comment on above: Result Comment: An age-independent cutoff point of 300 pg/ml has a 98% negative predictive value excluding acute heart failure. Performed By: #### H EPXA, PT #### [facility] [address] [place] [address]391 Tar Processing Technician: Romel Clemons MD Brain Natriuretic Peptideon 04-26-2023 Interpretation and review of laboratory results Abnormal [facility] iClinical Natriuretic peptide B (Bld) [Mass/Vol] 6197 pg/mL High NINF - 300 pg/mL [facility] Comment on above: An age-independent cutoff point of 300 pg/ml has a 98% negative predictive value excluding acute heart failure. [facility] iClinical CBCon 04-26-2023 Erythrocyte distribution width (RBC) [Ratio] 13.8 % Normal 11.8-14.4 [facility] Comment on above: Performed By: #### H EPXA, PT #### [facility] [address] [place] [address] 65649 Tar Processing Technician: Romel Clemons MD Hematocrit (Bld) [Volume fraction] 34.0 % Low 36.3-47.1 [facility] Comment on above: Performed By: #### H EPXA, PT #### [facility] [address] [place] [address] 08486 Tar Processing Technician: Romel Clemons MD Hemoglobin (Bld) [Mass/Vol] 10.3 g/dL Low 11.9-15.1 [facility] Comment on above: Performed By: #### H EPXA, PT #### [facility] [address] [place] [address] Tar Processing Technician: Romel Clemons MD MCH (RBC) [Entitic mass] 30.0 pg Normal 25.2-33.5 [facility] Comment on above: Performed By: #### H EPXA, PT #### [address] [address] Tar Processing Technician: Romel Clemons MD MCHC (RBC) [Mass/Vol] 30.3 g/dL Normal 28.4-34.8 [facility] Comment on above: Performed By: #### H EPXA, PT #### [address] [address] Tar Processing Technician: Romel Clemons MD MCV (RBC) [Entitic vol] 99.1 fL Normal 82.6-102.9 [facility] Comment on above: Performed By: #### H EPXA, PT #### [address] [address] Tar Processing Technician: Romel Clemons MD NRBC Automated 0.0 per 100 WBC Normal 0.0 [facility] Comment on above: Performed By: #### H EPXA, PT #### [address] [address] Tar Processing Technician: Romel Clemons MD Platelet mean volume (Bld) [Entitic vol] 9.3 fL Normal 8.1-13.5 [facility] Comment on above: Performed By: #### H EPXA, PT #### [address] [address] Tar Processing Technician: Romel Clemons MD Platelets (Bld) [#/Vol] 328 10*3/uL Normal 138-453 [facility] Comment on above: Performed By: #### H EPXA, PT #### [address] [address] Tar Processing Technician: Romel Clemons MD RBC (Bld) [#/Vol] 3.43 10*6/uL Low 3.95-5.11 [facility] Comment on above: Performed By: #### H EPXA, PT #### [facility] [address] [place], [place] [phone] Tar Processing Technician: Romel Clemons MD WBC (Bld) [#/Vol] 8.9 10*3/uL Normal 3.5-11.3 [facility] Comment on above: Performed By: #### H EPXA, PT #### [facility] [address] [place] [address] Tar Processing Technician: Romel Clemons MD Erythrocyte distribution width (RBC) [Ratio] 13.8 % 11.8 - 14.4 % [facility] Hematocrit (Bld) [Volume fraction] 34.0 % Low 36.3 - 47.1 % [facility] Hemoglobin (Bld) [Mass/Vol] 10.3 g/dL Low 11.9 - 15.1 g/dL [facility] Interpretation and review of laboratory results Abnormal [facility] MCH (RBC) [Entitic mass] 30.0 pg 25.2 - 33.5 pg [facility] MCHC (RBC) [Mass/Vol] 30.3 g/dL 28.4 - 34.8 g/dL [facility] MCV (RBC) [Entitic vol] 99.1 fL 82.6 - 102.9 fL [facility] Nucleated RBC/100 WBC (Bld) [Ratio] 0.0 % 0.0 per 100 WBC [facility] Platelet mean volume (Bld) [Entitic vol] 9.3 fL 8.1 - 13.5 fL [facility] Platelets (Bld) [#/Vol] 328 10*3/uL [facility] RBC (Bld) [#/Vol] 3.43 10*6/uL Low 3.95 - 5.1 1 m/uL [facility] WBC other (Bld) [#/Vol] 8.9 [facility] CBC with Auto Differentialon 04-26-2023 Basophils (Bld) [#/Vol] [facility] Basophils/100 WBC (Bld) 0 % 0 - 2 % [facility] Eosinophils (Bld) [#/Vol] [facility] Eosinophils/100 WBC (Bld) 0 % Low 1 - 4 % [facility] Erythrocyte distribution width (RBC) [Ratio] 13.7 % 11.8 - 14.4 % [facility] Hematocrit (Bld) [Volume fraction] 31.3 % Low 36.3 - 47.1 % [facility] Hemoglobin (Bld) [Mass/Vol] 10.0 g/dL Low 11.9 - 15.1 g/dL [facility] Immature granulocytes (Bld) [#/Vol] 0.03 10*3/uL [facility] Immature granulocytes/100 WBC (Bld) 0 % 0 [facility] Interpretation and review of laboratory results Abnormal [facility] Lymphocytes/100 WBC (Bld) 13 % Low 24 - 43 % [facility] Lymphocytes/100 WBC (Bld) 1.01 % Low [facility] MCH (RBC) [Entitic mass] 30.5 pg 25.2 - 33.5 pg [facility] MCHC (RBC) [Mass/Vol] 31.9 g/dL 28.4 - 34.8 g/dL [facility] MCV (RBC) [Entitic vol] 95.4 fL 82.6 - 102.9 fL [facility] Monocytes/100 WBC (Bld) 9 % 3 - 12 % [facility] Monocytes/100 WBC (Bld) 0.68 % [facility] Neutrophils/100 WBC (Bld) 78 % High 36 - 65 % [facility] Nucleated RBC/100 WBC (Bld) [Ratio] 0.0 % 0.0 per 100 WBC [facility] Platelet mean volume (Bld) [Entitic vol] 9.2 fL 8.1 - 13.5 fL [facility] Platelets (Bld) [#/Vol] 321 10*3/uL [facility] RBC (Bld) [#/Vol] 3.28 10*6/uL Low 3.95 - 5.1 1 m/uL [facility] Segmented neutrophils/100 WBC (Bld) 6.13 % [facility] WBC other (Bld) [#/Vol] 7.9 [facility] CBC with Diffon 04-26-2023 Abs. Basophil <0.03 Normal 0.00-0.20 [facility] Comment on above: Performed By: #### B MARK FORD, PT #### [facility] [address] [place] [address] Tar Processing Technician: Romel Clemons MD Abs. Eosinophil <0.03 Normal 0.00-0.44 [facility] Comment on above: Performed By: #### B MARK FORD, PT #### [facility] [address] [place] [address] Tar Processing Technician: Romel Clemons MD Abs.Imm.Granulocyte 0.03 k/uL Normal 0.00-0.30 [facility] Comment on above: Performed By: #### B MARK FORD, PT #### [facility] [address] [place] [address] Tar Processing Technician: Romel Clemons MD Abs.Neutrophil (Seg) 6.13 k/uL Normal 1.50-8.10 [facility] Comment on above: Performed By: #### B MARK FORD, PT #### [facility] [address] [place] [address] Tar Processing Technician: Romel Clemons MD Basophils/100 WBC (Bld) 0 % Normal 0-2 [facility] Comment on above: Performed By: #### B MARK FORD, PT #### [facility] [address] [place] [address]34 Tar Processing Technician: Romel Clemons MD Eosinophils/100 WBC (Bld) 0 % Low 1-4 [facility] Comment on above: Performed By: #### B MARK FORD, PT #### [facility] [address] [place] [address] Tar Processing Technician: Romel Clemons MD Erythrocyte distribution width (RBC) [Ratio] 13.7 % Normal 11.8-14.4 [facility] Comment on above: Performed By: #### B LOGAN CDP, PT #### [facility] [address] [place] [address] Tar Processing Technician: Romel Clemons MD Hematocrit (Bld) [Volume fraction] 31.3 % Low 36.3-47.1 [facility] Comment on above: Performed By: #### B MARK FROD, PT #### [facility] [address] [place] [address]38 Tar Processing Technician: Romel Clemons MD Hemoglobin (Bld) [Mass/Vol] 10.0 g/dL Low 11.9-15.1 [facility] Comment on above: Performed By: #### B MARK FORD, PT #### [facility] [address] [place] [address]3927 Tar Processing Technician: Romel Clemons MD Immature granulocytes/100 WBC (Bld) 0 % Normal 0 [facility] Comment on above: Performed By: #### B MARK FORD, PT #### [facility] [address] [place] [address]009 Tar Processing Technician: Romel Clemons MD Lymphocytes (Bld) [#/Vol] 1.01 10*3/uL Low 1.10-3.70 [facility] Comment on above: Performed By: #### B MARK FORD, PT #### [facility] [address] [place] [address]47 Tar Processing Technician: Romel Clemons MD Lymphocytes/100 WBC (Bld) 13 % Low 24-43 [facility] Comment on above: Performed By: #### B LOGAN CDP, PT #### [address] [address] Tar Processing Technician: Romel Clemons MD MCH (RBC) [Entitic mass] 30.5 pg Normal 25.2-33.5 [facility] Comment on above: Performed By: #### B LOGAN CDP, PT #### [address] [address] Tar Processing Technician: Romel Clemons MD MCHC (RBC) [Mass/Vol] 31.9 g/dL Normal 28.4-34.8 [facility] Comment on above: Performed By: #### B LOGAN, CDP, PT #### [address] [address] Tar Processing Technician: Romel Clemons MD MCV (RBC) [Entitic vol] 95.4 fL Normal 82.6-102.9 [facility] Comment on above: Performed By: #### B LOGAN, CDP, PT #### [address] [address] Tar Processing Technician: Romel Clemons MD Monocytes (Bld) [#/Vol] 0.68 10*3/uL Normal 0.10-1.20 [facility] Comment on above: Performed By: #### B LOGAN CDP, PT #### [address] [address] Tar Processing Technician: Romel Clemons MD Monocytes/100 WBC (Bld) 9 % Normal 3-12 [facility] Comment on above: Performed By: #### B MP, CDP, PT #### [address] [address] Tar Processing Technician: Romel Clemons MD Neutrophil (Seg) 78 % High 36-65 [facility] Comment on above: Performed By: #### B MP, CDP, PT #### [facility] [address] [place] [address] Tar Processing Technician: Romel Clemons MD NRBC Automated 0.0 per 100 WBC Normal 0.0 [facility] Comment on above: Performed By: #### B MARK FORD, PT #### [facility] [address] [place] [address] Tar Processing Technician: Romel Clemons MD Platelet mean volume (Bld) [Entitic vol] 9.2 fL Normal 8.1-13.5 [facility] Comment on above: Performed By: #### B MP, CDP, PT #### [facility] [address] [place] [address] Tar Processing Technician: Romel Clemons MD Platelets (Bld) [#/Vol] 321 10*3/uL Normal 138-453 [facility] Comment on above: Performed By: #### B MARK FORD, PT #### [facility] [address] [place] [address] Tar Processing Technician: Romel Clemons MD RBC (Bld) [#/Vol] 3.28 10*6/uL Low 3.95-5.11 [facility] Comment on above: Performed By: #### B LOGAN CDP, PT #### [facility] [address] [place] [address] Tar Processing Technician: Romel Clemons MD WBC (Bld) [#/Vol] 7.9 10*3/uL Normal 3.5-11.3 [facility] Comment on above: Performed By: #### B LOGAN CDP, PT #### [facility] [address] [place] [address] Tar Processing Technician: Romel Clemons MD D-Dimer Teston 04-26-2023 D-Dimer Test >20.00 High 0.00-0.57 [facility] Comment on above: Result Comment: When combined [...] Performed By: #### H EPXA, PT #### [facility] [place] [address] Tar Processing Technician: Romel Clemons MD D-Dimer, Quantitativeon Fibrin D-dimer FEU (PPP) [Mass/Vol] [facility] Comment on above: When combined with a [...] Interpretation and review of laboratory results Abnormal [employer] EKG 12 LeadOrdered By: Wayne eRynolds on 04-26-2023 Atrial Rate 91 BPM [employer] Work Phone: P Blackwell 9 degrees [employer] Work Phone: P-R Interval 126 ms [employer] Work Phone: Q-T Interval 366 ms [employer] Work Phone: QRS Duration 88 ms [employer] Phone: QTc Calculation (Bazett) 450 ms [employer] Work Phone: R Blackwell 24 degrees [employer] Work Phone: T Blackwell 13 degrees [employer] Work Phone: Ventricular Rate 91 BPM [employer] Work Phone: [employer] Work Phone: EKG 12 Leadon 04-26-2023 Normal sinus rhythm Nonspecific T wave abnormality Abnormal ECG When compared with ECG of 22-APR-2023 05:48, No significant change was found [facility] Wayne Villa MD - 04/26/2023 Normal sinus rhythm Nonspecific T wave abnormality Abnormal ECG When compared with ECG of 22-APR-2023 05:48, No significant change was found [employer] Heparin Anti-Xaon 04-26-2023 Heparin Anti-Xa <0.10 Normal [facility] Comment on above: Performed By: #### H EPXA, PT #### [facility] [address] [place] [address] Tar Processing Technician: Romel Clemons MD Microscopic Urinalysison Bacteria LM Ql (Urine sed) None None [facility] Casts LM.LPF (Urine sed) [#/Area] 0 TO 2 HYALINE Reference range defined for non-centrifuged specimen. [facility] Epithelial cells LM.HPF (Urine sed) [#/Area] 2 TO 5 [facility] RBC LM.HPF (Urine sed) [#/Area] 2 TO 5 [facility] Comment on above: Reference range defi doris for non-centrifuged specimen. WBC LM.HPF (Urine sed) [#/Area] 2 TO 5 [facility] PTon 04-26-2023 INR Coag (PPP) [Relative time] 1.9 {INR} Normal [facility] Comment on above: Therapeutic Range: Moderate Anticoagulant Intensity: INR = 2.0-3.0 High Anticoagulant Intensity: INR = 2.5-3.5 Result Comment: Therapeutic Range: Moderate Anticoagulant Intensity: INR = 2.0-3.0 High Anticoagulant Intensity: INR = 2.5-3.5 Performed By: #### B LOGAN, CDP, PT #### [facility] [address] [place] [address] Tar Processing Technician: Romel Clemons MD PT Coag (PPP) [Time] 21.5 s High 11.7-14.9 [facility] Comment on above: Performed By: #### B LOGAN, CDP, PT #### [facility] [address] [place] [address] Tar Processing Technician: Romel Clemons MD Portable XR Chest AP [...] pleural effusion or evidence of pulmonary edema. [facility] Radiology Study observation (narrative) [facility] iClinical Portable XR Chest AP single viewOrdered By: Efren Morel on 04-26-2023 [facility] iClinical Work Phone: Procalcitoninon 04-26-2023 Procalcitonin 0.14 ng/mL High <0.09 [facility] Comment on above: Result Comment: Suspected Sepsis: [...] entered into the Change in Procalcitonin Calculator (www.mowzte-sql-utmriffzcj.com) to determine the patient's Mortality Risk Prognosis In healthy neonates, plasma Procalcitonin (PCT) concentrations increase gradually after , reaching peak values at about 24 hours of age then decrease to normal values below 0.5 ng/mL by 48-72 hours of age. Performed By: #### H EPXA, PT #### [facility] [address] [place] [address] Tar Processing Technician: Romel Clemons MD Interpretation and review of laboratory results Abnormal [facility] Procalcitonin [Mass/Vol] 0.14 ng/mL High NINF - 0.09 ng/mL [facility] Comment on above: Suspected Sepsis: <0.50 ng/mL [...] entered into the Change in Procalcitonin Calculator (www.kehger-pat-rhwrmxvfsi.MediaWheel) to determine the patient's Mortality Risk Prognosis In healthy neonates, plasma Procalcitonin (PCT) concentrations increase gradually after , reaching peak values at about 24 hours of age then decrease to normal values below 0.5 ng/mL by 48-72 hours of age. [facility] Protime-INRon 04-26-2023 Interpretation and review of laboratory results Abnormal [facility] Troponinon 04-26-2023 Troponin, High Sens 64 ng/L Critically high 0-14 [facility] Comment on above: Result Comment: High Sensitivity Troponin values cannot be compared with other Troponin methodologies. Performed By: #### B MP, CDP, PT #### [facility] [place], [place] [id number] Tar Processing Technician: Romel Clemons MD Interpretation and review of laboratory results Abnormal [facility] Troponin I.cardiac High sensitivity method [Mass/Vol] 64 ng/L Critically high 0 - 14 ng/L [facility] Comment on above: High Sensitivity Tro ponin values cannot be compared with other Troponin methodologies. [facility] UA w/Reflex Cultureon 2023 Bilirubin, SemiQt,Ur Negative Normal NEG [facility] Comment on above: Performed By: #### B LOGAN, CDP, PT #### [facility] [facility] [address] [place] [address] 83898 Tar Processing Technician: Romel Clemons MD Blood, Urine Negative Normal NEG [facility] Comment on above: Performed By: #### B MP, CDP, PT #### [facility] [address] [place] [address] 40352 Tar Processing Technician: Romel Clemons MD Clarity (U) Clear Normal CLEAR [facility] Comment on above: Performed By: #### B LOGAN, CDP, PT #### [facility] [address] [place] [address] 11577 Tar Processing Technician: Romel Clemons MD Color (U) Yellow Normal YEL [facility] Comment on above: Performed By: #### B LOGAN, CDP, PT #### [facility] [address] [place] [address] 75957 Tar Processing Technician: Romel Clemons MD Glucose Ql (U) Negative Normal NEG [facility] Comment on above: Performed By: #### B LOGAN, CDP, PT #### [facility] [address] [place] [address] 77094 Tar Processing Technician: Romel Clemons MD Ketones Ql (U) Negative Normal NEG [facility] Comment on above: Performed By: #### B LOGAN, CDP, PT #### [facility] [address] [place] [address] 98172 Tar Processing Technician: Romel Clemons MD Leukocyte esterase Test strip Ql (U) TRACE Abnormal NEG [facility] Comment on above: Performed By: #### B LOGAN, CDP, PT #### [facility] [address] [place] [address] 46009 Tar Processing Technician: Romel Clemons MD Nitrite,Ur Negative Normal NEG [facility] Comment on above: Performed By: #### B MP, CDP, PT #### [facility] [address] [place] [address] Tar Processing Technician: Romel Clemons MD PH,Ur 6.5 Normal 5.0-8.0 [facility] Comment on above: Performed By: #### B MARK FORD, PT #### [facility] [place] [address] Tar Processing Technician: Romel Clemons MD Protein Ql (U) Negative Normal NEG [facility] Comment on above: Performed By: #### B MARK FORD, PT #### [facility] [address] [place] [address] 39010 Tar Processing Technician: Romel Clemons MD Spec. Webb,Ur 1.011 Normal 1.005-1.030 [facility] Comment on above: Performed By: #### B MARK FORD, PT #### [facility] [address] [place] [address] 19139 Tar Processing Technician: Romel Clemons MD Urobilinogen,Ur Normal Normal 0.0-1.0 [facility] Comment on above: Performed By: #### B MARK FORD, PT #### [facility] [address] [place] [address] 06785 Tar Processing Technician: Romel Clemons MD Urinalysis with Reflex to Cu ltureon 04-26-2023 Bilirubin Ql (U) Negative NEGATIVE [facility] iClinical Clarity (U) Clear Clear [facility] Color (U) Yellow Yellow [facility] Glucose Test strip (U) [Mass/Vol] Negative NEGATIVE mg/dL [facility] Hemoglobin Auto test strip Ql (U) Negative NEGATIVE [facility] Interpretation and review of laboratory results Abnormal [facility] Ketones (U) [Mass/Vol] Negative NEGATIVE mg/dL [facility] Leukocyte esterase Test strip Ql (U) TRACE Abnormal NEGATIVE [facility] Nitrite Ql (U) Negative NEGATIVE [facility] pH (U) 6.5 [pH] 5.0 - 8.0 [facility] Protein (U) [Mass/Vol] Negative NEGATIVE mg/dL [facility] Specific gravity (U) [Rel density] 1.011 1.005 - 1.030 [facility] Urobilinogen Qn (U) Normal 0.0 - 1. 0 EU/dL [facility] Urinalysis,Microon 4 Urine RBC's 2 TO 5 Normal 0-4 [facility] Comment on above: Result Comment: Refe rence range defined for non-centrifuged specimen. Performed By: #### B MARK FORD, PT #### [facility] [address] [place] [address] 16067 Tar Processing Technician: Romel Clemons MD Bacteria None Normal NONE [facility] Comment on above: Performed By: #### B MARK FORD, PT #### [facility] [address] [place] [address] 46910 Tar Processing Technician: Romel Clemons MD Casts 0 TO 2 HYALINE Normal 0-8 [facility] Comment on above: Result Comment: Refe rence range defined for non-centrifuged specimen. Performed By: #### B MARK FORD, PT #### [facility] [address] [place] [address] 71425 Tar Processing Technician: Romel Clemons MD Epithelial cells LM Ql (Urine sed) 2 TO 5 Normal 0-5 [facility] Comment on above: Performed By: #### B MARK FORD, PT #### [facility] [address] [place] [address] 98141 Tar Processing Technician: Romel Clemons MD Urine WBC's 2 TO 5 Normal 0-5 [facility] Comment on above: Performed By: #### B MARK FORD, PT #### [facility] [address] [place] [address] 16362 Tar Processing Technician: Romel Clemons MD Vascular duplex lower extrem ity arteries left with ABIon 04-26-2023 Radiology Study observation (narrative) [facility] BrightQube XR CHEST PORTABLEon 04-26-19 XR CHEST PORTABLE [...] Efren Morel MD 04/26/23 Final result Normal [facility] Basic Metabolic Panelon Anion gap [Moles/Vol] 11 mmol/L 9 - 17 mmol/L [facility] [employer]ise iClinical Calcium [Mass/Vol] 8.6 mg/dL 8.6 - 10. 4 mg/dL [facility] [employer] [facility] Chloride [Moles/Vol] 103 mmol/L 98 - 10 7 mmol/L [facility] [employer] [facility] CO2 [Moles/Vol] 23 mmol/L 20 - 31 mmol/L [facility] [facility] Creatinine [Mass/Vol] 0.5 mg/dL 0.5 - 0.9 mg/dL [facility] [employer] iClinical GFR/1.73 sq M.predicted MDRD (S/P/Bld) [Vol rate/Area] - [facility] Comment on above: These results are not [...] 119 mg/dL High 70 - 99 mg/dL [facility] Interpretation and review of laboratory results Abnormal [facility] iClinical Potassium [Moles/Vol] 4.0 mmol/L 3.7 - 5.3 mmol/L [facility] Sodium [Moles/Vol] 137 mmol/L 135 - 144 mmol/L [facility] Urea nitrogen [Mass/Vol] 13 mg/dL 6 - 20 mg/dL [facility] Basic Metabolic Profon 04-25 Anion gap [Moles/Vol] 11 mmol/L Normal 9-17 [facility] Comment on above: Performed By: #### B MARK FORD, PT #### [facility] [address] [place] [address] 77771 Tar Processing Technician: Romel Clemons MD Calcium [Mass/Vol] 8.6 mg/dL Normal 8.6-10.4 [facility] Comment on above: Performed By: #### B MARK FORD, PT #### [facility] [address] [place] [address] 81243 Tar Processing Technician: Romel Clemons MD Chloride [Moles/Vol] 103 mmol/L Normal 98-107 [facility] Comment on above: Performed By: #### B MARK FORD, PT #### [facility] [address] [place] [address] 30497 Tar Processing Technician: Romel Clemons MD CO2 [Moles/Vol] 23 mmol/L Normal 20-31 [facility] Comment on above: Performed By: #### B MARK FORD, PT #### [facility] [address] [place] [address] 02870 Tar Processing Technician: Romel Clemons MD Creatinine [Mass/Vol] 0.5 mg/dL Normal 0.5-0.9 [facility] Comment on above: Performed By: #### B MARK FORD, PT #### [facility] [address] [place] [address] 54210 Tar Processing Technician: Romel Clemons MD GFR/1.73 sq M.predicted among non-blacks MDRD (S/P/Bld) [Vol rate/Area] mL/min/{1.73_m2} Normal >60 [facility] Comment on above: Result Comment: These results [...] By: #### B MARK FORD, PT #### [facility] [address] [place] [address] 61399 Tar Processing Technician: Romel Clemons MD Glucose [Mass/Vol] 119 mg/dL High 70-99 [facility] Comment on above: Performed By: #### B MARK FORD, PT #### [facility] [address] [place] [address] 50724 Tar Processing Technician: Romel Clemons MD Potassium [Moles/Vol] 4.0 mmol/L Normal 3.7-5.3 [facility] Comment on above: Performed By: #### B MARK FORD, PT #### [facility] [address] [place] [address] 76297 Tar Processing Technician: Romel Clemons MD Sodium [Moles/Vol] 137 mmol/L Normal 135-144 [facility] Comment on above: Performed By: #### B MARK FORD, PT #### [facility] [address] [place] [address] 13509 Tar Processing Technician: Romel Clemons MD Urea nitrogen [Mass/Vol] 13 mg/dL Normal 6-20 [facility] Comment on above: Performed By: #### B MARK FORD, PT #### [facility] [address] [place] [address] 36983 Tar Processing Technician: Romel Clemons MD CBC with Auto Differentialon 04-25-2023 Basophils (Bld) [#/Vol] [facility] Basophils/100 WBC (Bld) 0 % 0 - 2 % [facility] Eosinophils (Bld) [#/Vol] [facility] Eosinophils/100 WBC (Bld) 0 % Low 1 - 4 % [facility] Erythrocyte distribution width (RBC) [Ratio] 13.7 % 11.8 - 14.4 % [facility] Hematocrit (Bld) [Volume fraction] 32.7 % Low 36.3 - 47.1 % [facility] Hemoglobin (Bld) [Mass/Vol] 9.8 g/dL Low 11.9 - 15.1 g/dL [facility] Immature granulocytes (Bld) [#/Vol] 0.03 10*3/uL [facility] Immature granulocytes/100 WBC (Bld) 1 % High 0 [facility] Interpretation and review of laboratory results Abnormal [facility] Lymphocytes/100 WBC (Bld) 20 % Low 24 - 43 % [facility] Lymphocytes/100 WBC (Bld) 1.24 % [facility] MCH (RBC) [Entitic mass] 30.0 pg 25.2 - 33.5 pg [facility] MCHC (RBC) [Mass/Vol] 30.0 g/dL 28.4 - 34.8 g/dL [facility] MCV (RBC) [Entitic vol] 100.0 fL 82.6 - 102.9 fL [facility] Monocytes/100 WBC (Bld) 10 % 3 - 12 % [facility] Monocytes/100 WBC (Bld) 0.62 % [facility] Neutrophils/100 WBC (Bld) 69 % High 36 - 65 % [facility] Nucleated RBC/100 WBC (Bld) [Ratio] 0.0 % 0.0 per 100 WBC [facility] Platelet mean volume (Bld) [Entitic vol] 9.2 fL 8.1 - 13.5 fL [facility] Platelets (Bld) [#/Vol] 343 10*3/uL [facility] RBC (Bld) [#/Vol] 3.27 10*6/uL Low 3.95 - 5.1 1 m/uL [facility] Segmented neutrophils/100 WBC (Bld) 4.37 % [facility] WBC other (Bld) [#/Vol] 6.3 [facility] CBC with Diffon 04-25-2023 Abs. Basophil <0.03 Normal 0.00-0.20 [facility] Comment on above: Performed By: #### B MARK FORD, PT #### [facility] [address] [place] [address] 76552 Tar Processing Technician: Romel Clemons MD Abs. Eosinophil <0.03 Normal 0.00-0.44 [facility] Comment on above: Performed By: #### B MARK FORD, PT #### [facility] [address] [place] [address] 84937 Tar Processing Technician: Romel Clemons MD Abs.Imm.Granulocyte 0.03 k/uL Normal 0.00-0.30 [facility] Comment on above: Performed By: #### B MARK FORD, PT #### [facility] [address] [place] [address] 56818 Tar Processing Technician: Romel Clemons MD Abs.Neutrophil (Seg) 4.37 k/uL Normal 1.50-8.10 [facility] Comment on above: Performed By: #### B MARK FORD, PT #### [facility] [address] [place] [address] 16965 Tar Processing Technician: Romel Clemons MD Basophils/100 WBC (Bld) 0 % Normal 0-2 [facility] Comment on above: Performed By: #### B LOGAN CDP, PT #### [facility] [address] [place] [address] 10059 Tar Processing Technician: Romle Clemons MD Eosinophils/100 WBC (Bld) 0 % Low 1-4 [facility] Comment on above: Performed By: #### B LOGAN CDP, PT #### [facility] [address] [place] [address] 05485 Tar Processing Technician: Romel Clemons MD Erythrocyte distribution width (RBC) [Ratio] 13.7 % Normal 11.8-14.4 [facility] Comment on above: Performed By: #### B MARK FORD, PT #### [facility] [address] [place] [address] 95916 Tar Processing Technician: Romel Clemons MD Hematocrit (Bld) [Volume fraction] 32.7 % Low 36.3-47.1 [facility] Comment on above: Performed By: #### B MARK FORD, PT #### [facility] [address] [place] [address] 40235 Tar Processing Technician: Romel Clemons MD Hemoglobin (Bld) [Mass/Vol] 9.8 g/dL Low 11.9-15.1 [facility] Comment on above: Performed By: #### B MARK FORD, PT #### [facility] [address] [place] [address] 82892 Tar Processing Technician: Romel Clemons MD Immature granulocytes/100 WBC (Bld) 1 % High 0 [facility] Comment on above: Performed By: #### B MARK FORD, PT #### [facility] [address] [place] [address] 04218 Tar Processing Technician: Romel Clemons MD Lymphocytes (Bld) [#/Vol] 1.24 10*3/uL Normal 1.10-3.70 [facility] Comment on above: Performed By: #### B MARK FORD, PT #### [facility] [address] [place] [address] 88344 Tar Processing Technician: Romel Clemons MD Lymphocytes/100 WBC (Bld) 20 % Low 24-43 [facility] Comment on above: Performed By: #### B MARK FORD, PT #### [facility] [address] [place] [address] 86987 Tar Processing Technician: Romel Clemons MD MCH (RBC) [Entitic mass] 30.0 pg Normal 25.2-33.5 [facility] Comment on above: Performed By: #### B MARK FORD, PT #### [address] [address] Tar Processing Technician: Romel Clemons MD MCHC (RBC) [Mass/Vol] 30.0 g/dL Normal 28.4-34.8 [facility] Comment on above: Performed By: #### B MARK FORD, PT #### [facility] [address] [place] [address] 73818 Tar Processing Technician: Romel Clemons MD MCV (RBC) [Entitic vol] 100.0 fL Normal 82.6-102.9 [facility] Comment on above: Performed By: #### B MARK FORD, PT #### [address] [address] Tar Processing Technician: Romel Clemons MD Monocytes (Bld) [#/Vol] 0.62 10*3/uL Normal 0.10-1.20 [facility] Comment on above: Performed By: #### B MARK FORD, PT #### [address] [address] Tar Processing Technician: Romel Clemons MD Monocytes/100 WBC (Bld) 10 % Normal 3-12 [facility] Comment on above: Performed By: #### B MARK FORD, PT #### [facility] [address] [place] [address] 15648 Tar Processing Technician: Romel Clemons MD Neutrophil (Seg) 69 % High 36-65 [facility] Comment on above: Performed By: #### B MARK FORD, PT #### [facility] [address] [place] [address] 49178 Tar Processing Technician: Romel Clemons MD NRBC Automated 0.0 per 100 WBC Normal 0.0 [facility] Comment on above: Performed By: #### B MP, CDP, PT #### [facility] [address] [place] [address] 26523 Tar Processing Technician: Romel Clemons MD Platelet mean volume (Bld) [Entitic vol] 9.2 fL Normal 8.1-13.5 [facility] Comment on above: Performed By: #### B MP, CDP, PT #### [facility] [address] [place] [address] 61485 Tar Processing Technician: Romel Clemons MD Platelets (Bld) [#/Vol] 343 10*3/uL Normal 138-453 [facility] Comment on above: Performed By: #### B MP, CDP, PT #### [facility] [address] [place] [address] 05064 Tar Processing Technician: Romel Clemons MD RBC (Bld) [#/Vol] 3.27 10*6/uL Low 3.95-5.11 [facility] Comment on above: Performed By: #### B MP, CDP, PT #### [facility] [address] [place] [address] 66506 Tar Processing Technician: Romel Clemons MD WBC (Bld) [#/Vol] 6.3 10*3/uL Normal 3.5-11.3 [facility] Comment on above: Performed By: #### B MP, CDP, PT #### [facility] [address] [place] [address] 89166 Tar Processing Technician: Romel Clemons MD PTon 04-25-2023 INR Coag (PPP) [Relative time] 1.6 {INR} Normal [facility] Comment on above: Result Comment: Therapeutic Range: Moderate Anticoagulant Intensity: INR = 2.0-3.0 High Anticoagulant Intensity: INR = 2.5-3.5 Performed By: #### B MP, CDP, PT #### [facility] [address] [place] [address] 89661 Tar Processing Technician: Romel Clemons MD PT Coag (PPP) [Time] 18.4 s High 11.7-14.9 [facility] Comment on above: Performed By: #### B MP, CDP, PT #### [facility] [address] [place] [address] Tar Processing Technician: Romel Clemons MD Protime-INRon 04-25-2023 INR Coag (PPP) [Relative time] 1.6 {INR} [facility] Comment on above: Therapeutic Range: Moderate Anticoagulant Intensity: INR = 2.0-3.0 High Anticoagulant Intensity: INR = 2.5-3.5 Interpretation and review of laboratory results Abnormal [facility] PT Coag (PPP) [Time] 18.4 s High [facility] CBC with Auto Differentialon 04-24-2023 Basophils (Bld) [#/Vol] [facility] Basophils/100 WBC (Bld) 0 % 0 - 2 % [facility] Eosinophils (Bld) [#/Vol] [facility] Eosinophils/100 WBC (Bld) 0 % Low 1 - 4 % [facility] Erythrocyte distribution width (RBC) [Ratio] 13.9 % 11.8 - 14.4 % [facility] Hematocrit (Bld) [Volume fraction] 29.7 % Low 36.3 - 47.1 % [facility] Hemoglobin (Bld) [Mass/Vol] 9.3 g/dL Low 11.9 - 15.1 g/dL [facility] Immature granulocytes (Bld) [#/Vol] 0.03 10*3/uL [facility] Immature granulocytes/100 WBC (Bld) 1 % High 0 [facility] Interpretation and review of laboratory results Abnormal [facility] Lymphocytes/100 WBC (Bld) 26 % 24 - 43 % [facility] Lymphocytes/100 WBC (Bld) 1.09 % Low [facility] MCH (RBC) [Entitic mass] 30.6 pg 25.2 - 33.5 pg [facility] MCHC (RBC) [Mass/Vol] 31.3 g/dL 28.4 - 34.8 g/dL [facility] MCV (RBC) [Entitic vol] 97.7 fL 82.6 - 102.9 fL [facility] Monocytes/100 WBC (Bld) 10 % 3 - 12 % [facility] Monocytes/100 WBC (Bld) 0.43 % [facility] Neutrophils/100 WBC (Bld) 63 % 36 - 65 % [facility] Nucleated RBC/100 WBC (Bld) [Ratio] 0.0 % 0.0 per 100 WBC [facility] Platelet mean volume (Bld) [Entitic vol] 9.0 fL 8.1 - 13.5 fL [facility] Platelets (Bld) [#/Vol] 350 10*3/uL [facility] RBC (Bld) [#/Vol] 3.04 10*6/uL Low 3.95 - 5.1 1 m/uL [facility] Segmented neutrophils/100 WBC (Bld) 2.64 % [facility] WBC other (Bld) [#/Vol] 4.2 [facility] CBC with Diffon 04-24-2023 Abs. Basophil <0.03 Normal 0.00-0.20 [facility] Comment on above: Performed By: #### H EPXA, PT #### [facility] [address] [place] [address] Tar Processing Technician: Romel Clemons MD Abs. Eosinophil <0.03 Normal 0.00-0.44 [facility] Comment on above: Performed By: #### H EPXA, PT #### [facility] [address] [place] [address] [phone] Tar Processing Technician: Romel Clemons MD Abs.Imm.Granulocyte 0.03 k/uL Normal 0.00-0.30 [facility] Comment on above: Performed By: #### H EPXA, PT #### [facility] [address] [place], [place] [phone] Tar Processing Technician: Romel Clemons MD Abs.Neutrophil (Seg) 2.64 k/uL Normal 1.50-8.10 [facility] Comment on above: Performed By: #### H EPXA, PT #### [facility] [address] [place] [address] 98436 Tar Processing Technician: Romel Clemons MD Basophils/100 WBC (Bld) 0 % Normal 0-2 [facility] Comment on above: Performed By: #### H EPXA, PT #### [facility] [address] [place] [address] 30405 Tar Processing Technician: Romel Clemons MD Eosinophils/100 WBC (Bld) 0 % Low 1-4 [facility] Comment on above: Performed By: #### H EPXA, PT #### [address] [address] Tar Processing Technician: Romel Clemons MD Erythrocyte distribution width (RBC) [Ratio] 13.9 % Normal 11.8-14.4 [facility] Comment on above: Performed By: #### H EPXA, PT #### [facility] [address] [place] [address] 79800 Tar Processing Technician: Romel Clemons MD Hematocrit (Bld) [Volume fraction] 29.7 % Low 36.3-47.1 [facility] Comment on above: Performed By: #### H EPXA, PT #### [facility] [address] [place] [address] 98241 Tar Processing Technician: Romel Clemons MD Hemoglobin (Bld) [Mass/Vol] 9.3 g/dL Low 11.9-15.1 [facility] Comment on above: Performed By: #### H EPXA, PT #### [facility] [address] [place] [address] 88015 Tar Processing Technician: Romel Clemons MD Immature granulocytes/100 WBC (Bld) 1 % High 0 [facility] Comment on above: Performed By: #### H EPXA, PT #### [place] [address] Tar Processing Technician: Romel Clemons MD Lymphocytes (Bld) [#/Vol] 1.09 10*3/uL Low 1.10-3.70 [facility] Comment on above: Performed By: #### H EPXA, PT #### [place] [address] Tar Processing Technician: Romel Clemons MD Lymphocytes/100 WBC (Bld) 26 % Normal 24-43 [facility] Comment on above: Performed By: #### H EPXA, PT #### [place] [address] Tar Processing Technician: Romel Clemons MD MCH (RBC) [Entitic mass] 30.6 pg Normal 25.2-33.5 [facility] Comment on above: Performed By: #### H EPXA, PT #### [place] [address] Tar Processing Technician: Romel Clemons MD MCHC (RBC) [Mass/Vol] 31.3 g/dL Normal 28.4-34.8 [facility] [place] Comment on above: Performed By: #### H EPXA, PT #### [place] [address] Tar Processing Technician: Romel Clemons MD MCV (RBC) [Entitic vol] 97.7 fL Normal 82.6-102.9 [facility] [place] Comment on above: Performed By: #### H EPXA, PT #### [place] [address] Tar Processing Technician: Romel Clemons MD Monocytes (Bld) [#/Vol] 0.43 10*3/uL Normal 0.10-1.20 [facility] [place] Comment on above: Performed By: #### H EPXA, PT #### [address] [address] Tar Processing Technician: Romel Clemons MD Monocytes/100 WBC (Bld) 10 % Normal 3-12 [facility] [place] Comment on above: Performed By: #### H EPXA, PT #### [address] [address] Tar Processing Technician: Romel Clemons MD Neutrophil (Seg) 63 % Normal 36-65 [facility] Comment on above: Performed By: #### H EPXA, PT #### [address] [address] Tar Processing Technician: Romel Clemons MD NRBC Automated 0.0 per 100 WBC Normal 0.0 [facility] [place] Comment on above: Performed By: #### H EPXA, PT #### [address] [address] Tar Processing Technician: Romel Clemons MD Platelet mean volume (Bld) [Entitic vol] 9.0 fL Normal 8.1-13.5 [facility] [place] Comment on above: Performed By: #### H EPXA, PT #### [address] [address] Tar Processing Technician: Romel Clemons MD Platelets (Bld) [#/Vol] 350 10*3/uL Normal 138-453 [facility] [place] Comment on above: Performed By: #### H EPXA, PT #### [address] [address] Tar Processing Technician: Romel Clemons MD RBC (Bld) [#/Vol] 3.04 10*6/uL Low 3.95-5.11 [facility] [place] Comment on above: Performed By: #### H EPXA, PT #### [address] [address] Tar Processing Technician: Romel Clemons MD WBC (Bld) [#/Vol] 4.2 10*3/uL Normal 3.5-11.3 [facility] [place] Comment on above: Performed By: #### H EPXA, PT #### [address] [address] Tar Processing Technician: Romel Clemons MD Comp Metabolic Pr/rfx MGon 0 - Albumin [Mass/Vol] 3.1 g/dL Low 3.5-5.2 [facility] [place] Comment on above: Performed By: #### H EPXA #### [address] [address] Tar Processing Technician: Romel Clemons MD Albumin/Glob Ratio 1.2 Normal 1.0-2.5 [facility] [place] Comment on above: Performed By: #### H EPXA #### [address] [address] Tar Processing Technician: Romel Clemons MD Alkaline Phos 109 U/L High 35-104 [facility] [place] Comment on above: Performed By: #### H EPXA #### [address] [address] Tar Processing Technician: Romel Clemons MD ALT [Catalytic activity/Vol] 21 U/L Normal 5-33 [facility] [place] Comment on above: Performed By: #### H EPXA #### [address] [address] Tar Processing Technician: Romel Clemons MD Anion gap [Moles/Vol] 10 mmol/L Normal 9-17 [facility] [place] Comment on above: Performed By: #### H EPXA #### [address] [address] Tar Processing Technician: Romel Clemons MD AST [Catalytic activity/Vol] 18 U/L Normal <32 [facility] [place] Comment on above: Performed By: #### H EPXA #### [address] [address] Tar Processing Technician: Romel Clemons MD Bilirubin [Mass/Vol] 0.2 mg/dL Low 0.3-1.2 [facility] Comment on above: Performed By: #### H EPXA #### [address] [address] Tar Processing Technician: Romel Clemons MD Calcium [Mass/Vol] 8.5 mg/dL Low 8.6-10.4 [facility] [place] Comment on above: Performed By: #### H EPXA #### [address] [address] Tar Processing Technician: Romel Clemons MD Chloride [Moles/Vol] 104 mmol/L Normal 98-107 [facility] Comment on above: Performed By: #### H EPXA #### [address] [address] Tar Processing Technician: Romel Clemons MD CO2 [Moles/Vol] 24 mmol/L Normal 20-31 [facility] [place] Comment on above: Performed By: #### H EPXA #### [address] [address] Tar Processing Technician: Romel Clemons MD Creatinine [Mass/Vol] 0.5 mg/dL Normal 0.5-0.9 [facility] [place] Comment on above: Performed By: #### H EPXA #### [address] [address] Tar Processing Technician: Romel Clemons MD GFR/1.73 sq M.predicted among non-blacks MDRD (S/P/Bld) [Vol rate/Area] mL/min/{1.73_m2} Normal >60 [facility] [place] Comment on above: Result Comment: These results [...] secretion. Performed By: #### H EPXA #### [address] [address] Tar Processing Technician: Romel Clemons MD Glucose [Mass/Vol] 116 mg/dL High 70-99 [facility] [place] Comment on above: Performed By: #### H EPXA #### [address] [address] Tar Processing Technician: Romel Clemons MD Potassium [Moles/Vol] 4.2 mmol/L Normal 3.7-5.3 [facility] [place] Comment on above: Performed By: #### H EPXA #### [address] [address] Tar Processing Technician: Romel Clemons MD Protein [Mass/Vol] 5.7 g/dL Low 6.4-8.3 [facility] [place] Comment on above: Performed By: #### H EPXA #### [address] [address] Tar Processing Technician: Romel Clemons MD Sodium [Moles/Vol] 138 mmol/L Normal 135-144 [facility] [place] Comment on above: Performed By: #### H EPXA #### [facility] [address] [place] [address] Tar Processing Technician: Romel Clemons MD Urea nitrogen [Mass/Vol] 10 mg/dL Normal 6-20 [facility] [place] Comment on above: Performed By: #### H EPXA #### [address] [address] Tar Processing Technician: Romel Clemons MD Comprehensive Metabolic Pane l w/ Reflex to on 04-24-2023 Albumin [Mass/Vol] 3.1 g/dL Low 3.5 - 5.2 g/dL [facility] Albumin/Globulin [Mass ratio] 1.2 {ratio} 1.0 - 2.5 [facility] ALP [Catalytic activity/Vol] 109 U/L High 35 - 104 U/L [facility] ALT [Catalytic activity/Vol] 21 U/L 5 - 33 U/L [facility] Anion gap [Moles/Vol] 10 mmol/L 9 - 17 mmol/L [facility] AST [Catalytic activity/Vol] 18 U/L NINF - 32 U/L [facility] Bilirubin [Mass/Vol] 0.2 mg/dL Low 0.3 - 1 .2 mg/dL [facility] Calcium [Mass/Vol] 8.5 mg/dL Low 8.6 - 10. 4 mg/dL [facility] Chloride [Moles/Vol] 104 mmol/L 98 - 10 7 mmol/L [facility] CO2 [Moles/Vol] 24 mmol/L 20 - 31 mmol/L [facility] Creatinine [Mass/Vol] 0.5 mg/dL 0.5 - 0.9 mg/dL [facility] GFR/1.73 sq M.predicted MDRD (S/P/Bld) [Vol rate/Area] - [facility] Comment on above: These results are not [...] 116 mg/dL High 70 - 99 mg/dL [facility] Interpretation and review of laboratory results Abnormal [facility] Potassium [Moles/Vol] 4.2 mmol/L 3.7 - 5.3 mmol/L [facility] Protein [Mass/Vol] 5.7 g/dL Low 6.4 - 8.3 g/dL [facility] Sodium [Moles/Vol] 138 mmol/L 135 - 144 mmol/L [facility] Urea nitrogen [Mass/Vol] 10 mg/dL 6 - 20 mg/dL [facility] PTon 04-24-2023 INR Coag (PPP) [Relative time] 1.1 {INR} Normal [facility] [place] Comment on above: Result Comment: Therapeutic Range: Moderate Anticoagulant Intensity: INR = 2.0-3.0 High Anticoagulant Intensity: INR = 2.5-3.5 Performed By: #### H EPXA, PT #### [facility] [place] [address] Tar Processing Technician: Romel Celmons MD PT Coag (PPP) [Time] 14.1 s Normal 11.7-14.9 [facility] Comment on above: Performed By: #### H EPXA, PT #### [facility] [address] [place] [address] Tar Processing Technician: Romel Clemons MD Protime-INRon 04-24-2023 INR Coag (PPP) [Relative time] 1.1 {INR} [facility] Comment on above: Therapeutic Range: Moderate Anticoagulant Intensity: INR = 2.0-3.0 High Anticoagulant Intensity: INR = 2.5-3.5 PT Coag (PPP) [Time] 14.1 s [facility] Basic Metabolic Panelon Anion gap [Moles/Vol] 9 mmol/L 9 - 17 mmol/L [facility] Calcium [Mass/Vol] 8.3 mg/dL Low 8.6 - 10. 4 mg/dL [facility] Chloride [Moles/Vol] 104 mmol/L 98 - 10 7 mmol/L [facility] CO2 [Moles/Vol] 25 mmol/L 20 - 31 mmol/L [facility] Creatinine [Mass/Vol] 0.6 mg/dL 0.5 - 0.9 mg/dL [facility] GFR/1.73 sq M.predicted MDRD (S/P/Bld) [Vol rate/Area] - [facility] Comment on above: These results are not [...] 113 mg/dL High 70 - 99 mg/dL [facility] Interpretation and review of laboratory results Abnormal [facility] Potassium [Moles/Vol] 3.8 mmol/L 3.7 - 5.3 mmol/L [facility] Sodium [Moles/Vol] 138 mmol/L 135 - 144 mmol/L [facility] Urea nitrogen [Mass/Vol] 12 mg/dL 6 - 20 mg/dL [facility] Basic Metabolic Profon 04-23 Anion gap [Moles/Vol] 9 mmol/L Normal 9-17 [facility] [place] Comment on above: Performed By: #### B MARK FORD, PT #### [facility] [address] [place] [address] Tar Processing Technician: Romel Clemons MD Calcium [Mass/Vol] 8.3 mg/dL Low 8.6-10.4 [facility] [place] Comment on above: Performed By: #### B MARK FORD, PT #### [facility] [address] [place] [phone] Tar Processing Technician: Romel Clemons MD Chloride [Moles/Vol] 104 mmol/L Normal 98-107 [facility] Comment on above: Performed By: #### B MARK FORD, PT #### [facility] [address] [place] [phone] Tar Processing Technician: Romel Clemons MD CO2 [Moles/Vol] 25 mmol/L Normal 20-31 [facility] [place] Comment on above: Performed By: #### B MARK FORD, PT #### [facility] [address] [place] [address] Tar Processing Technician: Romel Clemons MD Creatinine [Mass/Vol] 0.6 mg/dL Normal 0.5-0.9 [facility] [place] Comment on above: Performed By: #### B MARK FORD, PT #### [facility] [address] [place] [address] Tar Processing Technician: Romel Clemons MD GFR/1.73 sq M.predicted among non-blacks MDRD (S/P/Bld) [Vol rate/Area] mL/min/{1.73_m2} Normal >60 [facility] [place] Comment on above: Result Comment: These results [...] B MARK FORD, PT #### [facility] [address] [place] [address] Tar Processing Technician: Romel Clemons MD Glucose [Mass/Vol] 113 mg/dL High 70-99 [facility] [place] Comment on above: Performed By: #### B MARK FORD, PT #### [facility] [address] [place] [address] Tar Processing Technician: Romel Clemons MD Potassium [Moles/Vol] 3.8 mmol/L Normal 3.7-5.3 [facility] [place] Comment on above: Performed By: #### B MARK FORD, PT #### [facility] [address] [place] [address] Tar Processing Technician: Romel Clemons MD Sodium [Moles/Vol] 138 mmol/L Normal 135-144 [facility] [place] Comment on above: Performed By: #### B LOGAN, MARK, PT #### [facility] [address] [place], [place] [phone] Tar Processing Technician: Romel Clemons MD Urea nitrogen [Mass/Vol] 12 mg/dL Normal 6-20 [facility] [place] Comment on above: Performed By: #### B LOGAN, MARK, PT #### [facility] [address] [place], [place] [phone] Tar Processing Technician: Romel Clemons MD CBC with Auto Differentialon 04-23-2023 Basophils (Bld) [#/Vol] [facility] Basophils/100 WBC (Bld) 0 % 0 - 2 % [facility] Eosinophils (Bld) [#/Vol] [facility] Eosinophils/100 WBC (Bld) 0 % Low 1 - 4 % [facility] Erythrocyte distribution width (RBC) [Ratio] 14.0 % 11.8 - 14.4 % [facility] Hematocrit (Bld) [Volume fraction] 27.7 % Low 36.3 - 47.1 % [facility] Hemoglobin (Bld) [Mass/Vol] 8.6 g/dL Low 11.9 - 15.1 g/dL [facility] Immature granulocytes (Bld) [#/Vol] 0.04 10*3/uL [facility] Immature granulocytes/100 WBC (Bld) 1 % High 0 [facility] Interpretation and review of laboratory results Abnormal [facility] Lymphocytes/100 WBC (Bld) 23 % Low 24 - 43 % [facility] Lymphocytes/100 WBC (Bld) 1.12 % [facility] MCH (RBC) [Entitic mass] 30.7 pg 25.2 - 33.5 pg [facility] MCHC (RBC) [Mass/Vol] 31.0 g/dL 28.4 - 34.8 g/dL [facility] MCV (RBC) [Entitic vol] 98.9 fL 82.6 - 102.9 fL [facility] Monocytes/100 WBC (Bld) 13 % High 3 - 12 % [facility] Monocytes/100 WBC (Bld) 0.64 % [facility] Neutrophils/100 WBC (Bld) 63 % 36 - 65 % [facility] Nucleated RBC/100 WBC (Bld) [Ratio] 0.0 % 0.0 per 100 WBC [facility] Platelet mean volume (Bld) [Entitic vol] 9.3 fL 8.1 - 13.5 fL [facility] Platelets (Bld) [#/Vol] 296 10*3/uL [facility] RBC (Bld) [#/Vol] 2.80 10*6/uL Low 3.95 - 5.1 1 m/uL [facility] Segmented neutrophils/100 WBC (Bld) 3.01 % [facility] WBC other (Bld) [#/Vol] 4.8 [facility] CBC with Diffon 04-23-2023 Abs. Basophil <0.03 Normal 0.00-0.20 [facility] [place] Comment on above: Performed By: #### B MARK FORD, PT #### [facility] [address] [place] [address] Tar Processing Technician: Romel Clemons MD Abs. Eosinophil <0.03 Normal 0.00-0.44 [facility] [place] Comment on above: Performed By: #### B MARK FORD, PT #### [facility] [address] [place] [address] Tar Processing Technician: Romel Clemons MD Abs.Imm.Granulocyte 0.04 k/uL Normal 0.00-0.30 [facility] [place] Comment on above: Performed By: #### B MARK FORD, PT #### [facility] [address] [place] [address] Tar Processing Technician: Romel Clemons MD Abs.Neutrophil (Seg) 3.01 k/uL Normal 1.50-8.10 [facility] Comment on above: Performed By: #### B MARK FORD, PT #### [facility] [address] [place] [address] Tar Processing Technician: Romel Clemons MD Basophils/100 WBC (Bld) 0 % Normal 0-2 [facility] [place] Comment on above: Performed By: #### B MP, CDP, PT #### [facility] [address] [place] [phone] Tar Processing Technician: Romel Clemons MD Eosinophils/100 WBC (Bld) 0 % Low 1-4 [facility] [place] Comment on above: Performed By: #### B LOGAN, CDP, PT #### [facility] [address] [place] [address] Tar Processing Technician: Romel Clemons MD Erythrocyte distribution width (RBC) [Ratio] 14.0 % Normal 11.8-14.4 [facility] [place] Comment on above: Performed By: #### B LOGAN, CDP, PT #### [facility] [address] [place] [address] Tar Processing Technician: Romel Clemons MD Hematocrit (Bld) [Volume fraction] 27.7 % Low 36.3-47.1 [facility] [place] Comment on above: Performed By: #### B LOGAN, CDP, PT #### [facility] [address] [place] [address] Tar Processing Technician: Romel Clemons MD Hemoglobin (Bld) [Mass/Vol] 8.6 g/dL Low 11.9-15.1 [facility] [place] Comment on above: Performed By: #### B LOGNA, CDP, PT #### [facility] [address] [place] [address] Tar Processing Technician: Romel Clemons MD Immature granulocytes/100 WBC (Bld) 1 % High 0 [facility] [place] Comment on above: Performed By: #### B LOGAN, CDP, PT #### [facility] [address] [place] [address] Tar Processing Technician: Romel Clemons MD Lymphocytes (Bld) [#/Vol] 1.12 10*3/uL Normal 1.10-3.70 [facility] [place] Comment on above: Performed By: #### B MARK FORD, PT #### [facility] [address] [place] [address] Tar Processing Technician: Romel Clemons MD Lymphocytes/100 WBC (Bld) 23 % Low 24-43 [facility] [place] Comment on above: Performed By: #### B MARK FORD, PT #### [facility] [address] [place] [address] Tar Processing Technician: Romel Clemons MD MCH (RBC) [Entitic mass] 30.7 pg Normal 25.2-33.5 [facility] [place] Comment on above: Performed By: #### B MARK FORD, PT #### [address] [address] Tar Processing Technician: Romel Clemons MD MCHC (RBC) [Mass/Vol] 31.0 g/dL Normal 28.4-34.8 [facility] [place] Comment on above: Performed By: #### B MARK FORD, PT #### [facility] [address] [place] [address] Tar Processing Technician: Romel Clemons MD MCV (RBC) [Entitic vol] 98.9 fL Normal 82.6-102.9 [facility] [place] Comment on above: Performed By: #### B MARK FORD, PT #### [facility] [address] [place] [address] Tar Processing Technician: Romel Clemons MD Monocytes (Bld) [#/Vol] 0.64 10*3/uL Normal 0.10-1.20 [facility] [place] Comment on above: Performed By: #### B MARK FORD, PT #### [facility] [address] [place] [address] Tar Processing Technician: Romel Clemons MD Monocytes/100 WBC (Bld) 13 % High 3-12 [facility] [place] Comment on above: Performed By: #### B MARK FORD, PT #### [address] [address] Tar Processing Technician: Romel Clemons MD Neutrophil (Seg) 63 % Normal 36-65 [facility] Comment on above: Performed By: #### B MARK FORD, PT #### [address] [address] Tar Processing Technician: Romel Clemons MD NRBC Automated 0.0 per 100 WBC Normal 0.0 [facility] [place] Comment on above: Performed By: #### B MARK FORD, PT #### [address] [address] Tar Processing Technician: Romel Clemons MD Platelet mean volume (Bld) [Entitic vol] 9.3 fL Normal 8.1-13.5 [facility] [place] Comment on above: Performed By: #### B MARK FORD, PT #### [address] [address] Tar Processing Technician: Romel Clemons MD Platelets (Bld) [#/Vol] 296 10*3/uL Normal 138-453 [facility] [place] Comment on above: Performed By: #### B MARK FORD, PT #### [address] [address] Tar Processing Technician: Romel Clemons MD RBC (Bld) [#/Vol] 2.80 10*6/uL Low 3.95-5.11 [facility] [place] Comment on above: Performed By: #### B MARK FORD, PT #### [address] [address] Tar Processing Technician: Romel Clemons MD WBC (Bld) [#/Vol] 4.8 10*3/uL Normal 3.5-11.3 [facility] [place] Comment on above: Performed By: #### B MP, CDP, PT #### [facility] [address] [place] [address] [phone] Tar Processing Technician: Romel Clemons MD MRSA DNA Probe, Nasalon MRSA, DNA, Nasal Negative NEGATIVE [facility] Comment on above: NEGATIVE: MRSA DNA n ot detected by nucleic acid amplification. Results should be used as an adjunct to nosocomial control efforts to identify patients needing enhanced precautions. The test is not intended to identify patients with staphylococcal infections. Results should not be used to guide or monitor treatment for MRSA infections. Specimen Description .NASAL SWAB [facility] MRSA, DNA, Nasalon MRSA, DNA, Nasal Negative Normal NEG [facility] Comment on above: Result Comment: NEGA TIVE: MRSA DNA not detected by nucleic acid amplification. Results should be used as an adjunct to nosocomial control efforts to identify patients needing enhanced precautions. The test is not intended to identify patients with staphylococcal infections. Results should not be used to guide or monitor treatment for MRSA infections. Performed By: #### H EPXA, PT #### [employer] [address] [place] [address] [phone] Tar Processing Technician: Romel Clemons MD PTon 04-23-2023 INR Coag (PPP) [Relative time] 1.4 {INR} Normal [facility] [place] Comment on above: Result Comment: Therapeutic Range: Moderate Anticoagulant Intensity: INR = 2.0-3.0 High Anticoagulant Intensity: INR = 2.5-3.5 Performed By: #### H EPXA, PT #### [employer] [address] [place] [address] Tar Processing Technician: Romel Clemons MD PT Coag (PPP) [Time] 16.8 s High 11.7-14.9 [facility] Comment on above: Performed By: #### H EPXA, PT #### [employer] [address] [place] [address] Tar Processing Technician: Romel Clemons MD Protime-INRon 04-23-2023 INR Coag (PPP) [Relative time] 1.4 {INR} [facility] Comment on above: Therapeutic Range: Moderate Anticoagulant Intensity: INR = 2.0-3.0 High Anticoagulant Intensity: INR = 2.5-3.5 Interpretation and review of laboratory results Abnormal [facility] PT Coag (PPP) [Time] 16.8 s High [facility] Specimen Rejectionon 024 Reason for rejection DUPLICATE ORDER Normal [facility] [place] Comment on above: Performed By: #### H EPXA, PT #### [facility] [address] [place], [place] [phone] Tar Processing Technician: Romel Clemons MD Source of sample .BLOOD Normal [facility] Comment on above: Performed By: #### H EPXA, PT #### [facility] [address] [place] [phone] Tar Processing Technician: Romel Clemons MD Test ordered PT [facility] Comment on above: Performed By: #### H EPXA, PT #### [employer] [address] [place], [place] [phone] Tar Processing Technician: Romel Clemons MD Anti-Xa, Unfractionated Hepa rinon 04-22-2023 Anti-XA Unfrac Heparin 0.33 IU/L [facility] Anti-XA Unfrac Heparin 0.18 IU/L [facility] Basic Metabolic Panelon Anion gap [Moles/Vol] 8 mmol/L Low 9 - 17 mmol/L [facility] Calcium [Mass/Vol] 8.2 mg/dL Low 8.6 - 10. 4 mg/dL [facility] Chloride [Moles/Vol] 101 mmol/L 98 - 10 7 mmol/L [facility] CO2 [Moles/Vol] 27 mmol/L 20 - 31 mmol/L [facility] Creatinine [Mass/Vol] 0.5 mg/dL 0.5 - 0.9 mg/dL [facility] GFR/1.73 sq M.predicted MDRD (S/P/Bld) [Vol rate/Area] - [facility] Comment on above: These results are not [...] 136 mg/dL High 70 - 99 mg/dL [facility] Interpretation and review of laboratory results Abnormal [facility] Potassium [Moles/Vol] 4.0 mmol/L 3.7 - 5.3 mmol/L [facility] Sodium [Moles/Vol] 136 mmol/L 135 - 144 mmol/L [facility] Urea nitrogen [Mass/Vol] 11 mg/dL 6 - 20 mg/dL [facility] Basic Metabolic Profon 04-22 Anion gap [Moles/Vol] 8 mmol/L Low 9-17 [facility] [place] Comment on above: Performed By: #### T ROPI, BMP, CDP, HEPXA #### [facility] [place] [address] [employer] Technician: Romel Clemons MD Calcium [Mass/Vol] 8.2 mg/dL Low 8.6-10.4 [facility] Comment on above: Performed By: #### T ROPI, BMP, CDP, HEPXA #### [facility] [address] [place] [address] Tar Processing Technician: Romel Clemons MD Chloride [Moles/Vol] 101 mmol/L Normal 98-107 [facility] Comment on above: Performed By: #### T ROPI, BMP, CDP, HEPXA #### [facility] [address] [place], [place] [id number] Tar Processing Technician: Romel Clemons MD CO2 [Moles/Vol] 27 mmol/L Normal 20-31 [facility] Comment on above: Performed By: #### T ROPI, BMP, CDP, HEPXA #### [facility] [address] [place] [address] [id number] Tar Processing Technician: Romel Clemons MD Creatinine [Mass/Vol] 0.5 mg/dL Normal 0.5-0.9 [facility] Comment on above: Performed By: #### T ROPI, BMP, CDP, HEPXA #### [address] [id number] Tar Processing Technician: Romel Clemons MD GFR/1.73 sq M.predicted among non-blacks MDRD (S/P/Bld) [Vol rate/Area] mL/min/{1.73_m2} Normal >60 [facility] Comment on above: Result Comment: These results [...] LINDSAY, BMP, CDP, HEPXA #### [facility] [address] [place] [id number] Tar Processing Technician: Romel Clemons MD Glucose [Mass/Vol] 136 mg/dL High 70-99 [facility] Comment on above: Performed By: #### T ROPI, BMP, CDP, HEPXA #### [facility] [address] [place] [address] [phone] Tar Processing Technician: Romel Clemons MD Potassium [Moles/Vol] 4.0 mmol/L Normal 3.7-5.3 [facility] Comment on above: Performed By: #### T ROPI, BMP, CDP, HEPXA #### [facility] [address] [place], [place] [id number] Tar Processing Technician: Romel Clemons MD Sodium [Moles/Vol] 136 mmol/L Normal 135-144 [facility] Comment on above: Performed By: #### T ROPI, BMP, CDP, HEPXA #### [facility] [address] [place], [place] [id number] Tar Processing Technician: Romel Clemons MD Urea nitrogen [Mass/Vol] 11 mg/dL Normal 6-20 [facility] Comment on above: Performed By: #### T ROPI, BMP, CDP, HEPXA #### [facility] [address] [place], [place] [id number] Tar Processing Technician: Romel Clemons MD CBC with Auto Differentialon 04-22-2023 Basophils (Bld) [#/Vol] [facility] Basophils/100 WBC (Bld) 0 % 0 - 2 % [facility] Eosinophils (Bld) [#/Vol] [facility] Eosinophils/100 WBC (Bld) 0 % Low 1 - 4 % [facility] Erythrocyte distribution width (RBC) [Ratio] 14.0 % 11.8 - 14.4 % [facility] Hematocrit (Bld) [Volume fraction] 27.2 % Low 36.3 - 47.1 % [facility] Hemoglobin (Bld) [Mass/Vol] 8.5 g/dL Low 11.9 - 15.1 g/dL [facility] Immature granulocytes (Bld) [#/Vol] 0.05 10*3/uL [facility] Immature granulocytes/100 WBC (Bld) 1 % High 0 [facility] Interpretation and review of laboratory results Abnormal [facility] Lymphocytes/100 WBC (Bld) 17 % Low 24 - 43 % [facility] Lymphocytes/100 WBC (Bld) 0.98 % Low [facility] MCH (RBC) [Entitic mass] 30.4 pg 25.2 - 33.5 pg [facility] MCHC (RBC) [Mass/Vol] 31.3 g/dL 28.4 - 34.8 g/dL [facility] MCV (RBC) [Entitic vol] 97.1 fL 82.6 - 102.9 fL [facility] Monocytes/100 WBC (Bld) 15 % High 3 - 12 % [facility] Monocytes/100 WBC (Bld) 0.87 % [facility] Neutrophils/100 WBC (Bld) 67 % High 36 - 65 % [facility] Nucleated RBC/100 WBC (Bld) [Ratio] 0.0 % 0.0 per 100 WBC [facility] Platelet mean volume (Bld) [Entitic vol] 9.5 fL 8.1 - 13.5 fL [facility] Platelets (Bld) [#/Vol] 248 10*3/uL [facility] RBC (Bld) [#/Vol] 2.80 10*6/uL Low 3.95 - 5.1 1 m/uL [facility] iClinical Segmented neutrophils/100 WBC (Bld) 3.92 % [facility] WBC other (Bld) [#/Vol] 5.8 [facility] CBC with Diffon 04-22-2023 Abs. Basophil <0.03 Normal 0.00-0.20 [facility] Comment on above: Performed By: #### T ROPI, BMP, CDP, HEPXA #### [facility] [place] [id number] Tar Processing Technician: Romel Clemons MD Abs. Eosinophil <0.03 Normal 0.00-0.44 [facility] Comment on above: Performed By: #### T ROPI, BMP, CDP, HEPXA #### [facility] [address] [place] [id number] Tar Processing Technician: Romel Clemons MD Abs.Imm.Granulocyte 0.05 k/uL Normal 0.00-0.30 [facility] Comment on above: Performed By: #### T ROPI, BMP, CDP, HEPXA #### [facility] [address] [place] [id number] Tar Processing Technician: Romel Clemons MD Abs.Neutrophil (Seg) 3.92 k/uL Normal 1.50-8.10 [facility] Comment on above: Performed By: #### T ROPI, BMP, CDP, HEPXA #### [facility] [address] [place] [address] Tar Processing Technician: Romel Clemons MD Basophils/100 WBC (Bld) 0 % Normal 0-2 [facility] Comment on above: Performed By: #### T ROPI, BMP, CDP, HEPXA #### [facility] [address] [place] [address] Tar Processing Technician: Romel Clemons MD Eosinophils/100 WBC (Bld) 0 % Low 1-4 [facility] Comment on above: Performed By: #### T ROPI, BMP, CDP, HEPXA #### [facility] [address] [place] [address] Tar Processing Technician: Romel Clemons MD Erythrocyte distribution width (RBC) [Ratio] 14.0 % Normal 11.8-14.4 [facility] Comment on above: Performed By: #### T ROPI, BMP, CDP, HEPXA #### [facility] [address] [place] [address] Tar Processing Technician: Romel Clemons MD Hematocrit (Bld) [Volume fraction] 27.2 % Low 36.3-47.1 [facility] Comment on above: Performed By: #### T ROPI, BMP, CDP, HEPXA #### [facility] [address] [place] [address] Tar Processing Technician: Romel Clemons MD Hemoglobin (Bld) [Mass/Vol] 8.5 g/dL Low 11.9-15.1 [facility] Comment on above: Performed By: #### T ROPI, BMP, CDP, HEPXA #### [address] [address] Tar Processing Technician: Romel Clemons MD Immature granulocytes/100 WBC (Bld) 1 % High 0 [facility] Comment on above: Performed By: #### T ROPI, BMP, CDP, HEPXA #### [address] [address] Tar Processing Technician: Romel Clemons MD Lymphocytes (Bld) [#/Vol] 0.98 10*3/uL Low 1.10-3.70 [facility] Comment on above: Performed By: #### T ROPI, BMP, CDP, HEPXA #### [address] [address] Tar Processing Technician: Romel Clemons MD Lymphocytes/100 WBC (Bld) 17 % Low 24-43 [facility] Comment on above: Performed By: #### T ROPI, BMP, CDP, HEPXA #### [facility] [address] [place] [address] Tar Processing Technician: Romel Clemons MD MCH (RBC) [Entitic mass] 30.4 pg Normal 25.2-33.5 [facility] Comment on above: Performed By: #### T ROPI, BMP, CDP, HEPXA #### [address] [address] Tar Processing Technician: Romel Clemons MD MCHC (RBC) [Mass/Vol] 31.3 g/dL Normal 28.4-34.8 [facility] Comment on above: Performed By: #### T ROPI, BMP, CDP, HEPXA #### [facility] [address] [place] [address] Tar Processing Technician: Romel Clemons MD MCV (RBC) [Entitic vol] 97.1 fL Normal 82.6-102.9 [facility] Comment on above: Performed By: #### T ROPI, BMP, CDP, HEPXA #### [address] [address] Tar Processing Technician: Romel Clemons MD Monocytes (Bld) [#/Vol] 0.87 10*3/uL Normal 0.10-1.20 [facility] Comment on above: Performed By: #### T ROPI, BMP, CDP, HEPXA #### [address] [address] Tar Processing Technician: Romel Clemons MD Monocytes/100 WBC (Bld) 15 % High 3-12 [facility] Comment on above: Performed By: #### T ROPI, BMP, CDP, HEPXA #### [address] [address] Tar Processing Technician: Romel Clemons MD Neutrophil (Seg) 67 % High 36-65 [facility] Comment on above: Performed By: #### T ROPI, BMP, CDP, HEPXA #### [address] [address] Tar Processing Technician: Romel Clemons MD NRBC Automated 0.0 per 100 WBC Normal 0.0 [facility] Comment on above: Performed By: #### T ROPI, BMP, CDP, HEPXA #### [address] [address] Tar Processing Technician: Romel Clemons MD Platelet mean volume (Bld) [Entitic vol] 9.5 fL Normal 8.1-13.5 [facility] Comment on above: Performed By: #### T ROPI, BMP, CDP, HEPXA #### [facility] [address] [place] [address] Tar Processing Technician: Romel Clemons MD Platelets (Bld) [#/Vol] 248 10*3/uL Normal 138-453 [facility] Comment on above: Performed By: #### T ROPI, BMP, CDP, HEPXA #### [facility] [address] [place] [address] Tar Processing Technician: Romel Clemons MD RBC (Bld) [#/Vol] 2.80 10*6/uL Low 3.95-5.11 [facility] Comment on above: Performed By: #### T ROPI, BMP, CDP, HEPXA #### [facility] [address] [place] [address] Tar Processing Technician: Romel Clemons MD WBC (Bld) [#/Vol] 5.8 10*3/uL Normal 3.5-11.3 [facility] Comment on above: Performed By: #### T ROPI, BMP, CDP, HEPXA #### [facility] [address] [place] [address] Tar Processing Technician: Romel Clemons MD EKG 12 LeadOrdered By: Haven Marshall on 04-22-2023 Atrial Rate 106 BPM [facility] [employer] Work Phone: P Blackwell 5 degrees [employer] [employer] Work Phone: P-R Interval 128 ms [facility] [employer] Work Phone: Q-T Interval 346 ms [facility] Work Phone: QRS Duration 94 ms [facility] [employer] Work Phone: QTc Calculation (Bazett) 459 ms [facility] Work Phone: R Blackwell -4 degrees [facility] Work Phone: T Blackwell -5 degrees [facility] Work Phone: Ventricular Rate 106 BPM [facility] [employer] Work Phone: [facility] [employer] Work Phone: EKG 12 Leadon 04-22-2023 Sinus tachycardia Voltage criteria for left ventricular hypertrophy Inferior infarct , age undetermined Abnormal ECG No previous ECGs available [facility] Haven Diop MD - 04/22/2023 Sinus tachycardia Voltage criteria for left ventricular hypertrophy Inferior infarct , age undetermined Abnormal ECG No previous ECGs available [facility] Normal sinus rhythm Moderate voltage criteria for LVH, may be normal variant Possible Inferior infarct , age undetermined Abnormal ECG No previous ECGs available [facility] Andrea Tadeo MD - 04/22/2023 Normal sinus rhythm Moderate voltage criteria for LVH, may be normal variant Possible Inferior infarct , age undetermined Abnormal ECG No previous ECGs available [facility] Atrial Rate 88 BPM [facility] P Blackwell 59 degrees [facility] P-R Interval 144 ms [facility] Q-T Interval 390 ms [facility] QRS Duration 86 ms [facility] QTc Calculation (Bazett) 471 ms [facility] R Blackwell 11 degrees [facility] T Blackwell 19 degrees [facility] Ventricular Rate 88 BPM [facility] Normal sinus rhythm Nonspecific T wave abnormality Prolonged QT Abnormal ECG When compared with ECG of 21-APR-2023 17:03, Borderline criteria for Inferior infarct are no longer Present [facility] STAndrea Nael MD - 04/22/2023 Normal sinus rhythm Nonspecific T wave abnormality Prolonged QT Abnormal ECG When compared with ECG of 21-APR-2023 17:03, Borderline criteria for Inferior infarct are no longer Present [facility] EKG 12 LeadOrdered By: Andrea Mcknight on 04-22-2023 Atrial Rate 99 BPM [facility] Work Phone: P Blackwell 56 degrees [facility] Work Phone: P-R Interval 146 ms [facility] Work Phone: Q-T Interval 348 ms [facility] Work Phone: QRS Duration 90 ms [facility] Work Phone: QTc Calculation (Bazett) 446 ms [facility] Work Phone: R Blackwell 6 degrees [employer] Work Phone: T Blackwell 20 degrees [employer] [employer] Work Phone: Ventricular Rate 99 BPM [facility] [employer] Work Phone: [facility] [employer] Work Phone: Echo (TTE) complete (PRN con trast/bubble/strain/3D)Ordered By: Deejay Choe on 04-22-2023 Ao Root Index 1.35 cm/m2 [employer] [employer] Phone: Aortic Root 3.0 cm [employer] Phone: AV Area by Peak Velocity 2.2 cm2 [employer] Phone: AV Area by VTI 2.3 cm2 [facility] [employer] Phone: AV Mean Gradient 4 mmHg [facility] [employer] Work Phone: AV Mean Velocity 0.9 m/s AMY CARDOSOO MANOLO [employer] Phone: AV Peak Gradient 8 mmHg [employer] [employer] Phone: AV Peak Velocity 1.5 m/s AMY FRENCH [employer] Phone: AV Velocity Ratio 0.67 AMY Piazza NEAL [employer] Phone: AV VTI 24.0 cm [employer] Phone: DEMETRIUS/BSA Peak Velocity 1.0 cm2/m2 [employer] Phone: DEMETRIUS/BSA VTI 1.0 cm2/m2 [employer] Phone: Body surface area Derived from formula 2.29 m2 [employer] Phone: E/E' Lateral 5.08 [employer] Phone: E/E' Ratio (Averaged) 5.54 [employer] Phone: EF BP 65 % 55 - 100 % [employer] Phone: Fractional Shortening 2D 18 % 28 - 44 % [employer] Phone: Interpretation and review of laboratory results Abnormal [employer] Phone: IVSd 1.0 cm Abnormal 0.6 - 0.9 cm [employer] Phone: LA Area 2C 14.4 cm2 [employer] Phone: LA Area 4C 15.7 cm2 [employer] Phone: LA Diameter 3.4 cm [employer] Phone: LA Major Blackwell 5.8 cm [employer] Phone: LA Minor Blackwell 5.0 cm [employer] Phone: LA Size Index 1.52 cm/m2 [employer] Phone: LA Volume BP 36 mL 22 - 52 mL [employer] Phone: LA Volume Index BP 16 ml/m2 16 - 34 ml/m2 [employer] Phone: LA Volume Index MOD A2C 15 ml/m2 Abnormal 16 - 34 ml/m2 [employer] Phone: LA Volume Index MOD A4C 15 ml/m2 Abnormal 16 - 34 ml/m2 [employer] Phone: LA Volume MOD A2C 34 mL 22 - 52 mL [employer] Phone: LA Volume MOD A4C 34 mL 22 - 52 mL [employer] Phone: LA/AO Root Ratio 1.13 [facility] [employer] Phone: LV E' Lateral Velocity 13 cm/s [employer] Phone: LV E' Septal Velocity 11 cm/s [employer] Work Phone: LV EDV A2C 59 mL [employer] Work Phone: LV EDV A4C 76 mL [employer] Work Phone: LV EDV Index A2C 26 mL/m2 [facility] [employer] Work Phone: LV EDV Index A4C 34 mL/m2 [facility] [employer] Work Phone: LV Ejection Fraction A2C 60 % [employer] Work Phone: LV Ejection Fraction A4C 70 % [employer] Work Phone: LV ESV A2C 24 mL [employer] Work Phone: LV ESV A4C 23 mL [employer] Work Phone: LV ESV Index A2C 11 mL/m2 [facility] [employer] Work Phone: LV ESV Index A4C 10 mL/m2 [facility] PiazzaO [employer] Work Phone: LV Mass 2D 147.8 g 67 - 162 g [employer] Work Phone: LV Mass 2D Index 66.3 g/m2 43 - 95 g/m2 [employer] Work Phone: LV RWT Ratio 0.45 [employer] Work Phone: LVIDd 4.4 cm 3.9 - 5.3 cm [employer] Work Phone: LVIDd Index 1.97 cm/m2 [employer] Work Phone: LVIDs 3.6 cm [employer] Work Phone: LVIDs Index 1.61 cm/m2 [employer] Work Phone: LVOT Area 3.1 cm2 [employer] Work Phone: LVOT Diameter 2.0 cm [facility] Work Phone: LVOT Mean Gradient 2 mmHg [facility] [employer] Work Phone: LVOT Peak Gradient 4 mmHg [facility] [employer] Work Phone: LVOT Peak Velocity 1.0 m/s [facility] [employer] Work Phone: LVOT Stroke Volume Index 24.2 mL/m2 [facility] Work Phone: LVOT SV 54.0 ml [facility] [employer] [employer] Work Phone: LVOT VTI 17.2 cm [employer] Work Phone: LVOT:AV VTI Index 0.72 [facility] [employer] Work Phone: LVPWd 1.0 cm Abnormal 0.6 - 0.9 cm [employer] [employer] Work Phone: MV A Velocity 0.78 m/s [employer] [employer] Work Phone: MV Area by VTI 2.3 cm2 [facility] [employer] Work Phone: MV E Velocity 0.66 m/s [employer] Work Phone: MV E Wave Deceleration Time 204.0 ms [employer] Work Phone: MV E/A 0.85 [employer] [employer] Work Phone: MV Max Velocity 0.9 m/s [facility] [employer] Work Phone: MV Mean Gradient 1 mmHg [facility] [employer] Work Phone: MV Mean Velocity 0.5 m/s [facility] [employer] Work Phone: MV Peak Gradient 3 mmHg [facility] [employer] Work Phone: MV VTI 23.1 cm [employer] [employer] Work Phone: MV:LVOT VTI Index 1.34 [facility] [employer] Work Phone: PV Max Velocity 0.9 m/s [facility] SEC[facility] [employer] Work Phone: PV Peak Gradient 3 mmHg [facility] SEC[facility] [employer] Work Phone: RV Basal Dimension 3.7 cm [facility] [employer] Work Phone: RV Free Wall Peak S' 11 cm/s AMY ABRAHAM [employer] Work Phone: TAPSE 1.7 cm 1.7 cm [facility] ABRAHAM [employer] Work Phone: AMY ABRAHAM [employer] Work Phone: Echo (TTE) complete (PRN con [...] The left ventricular wall motion is normal. [facility] CV CPACS Radiology Study observation (narrative) [facility] [employer] Heparin Anti-Xaon 04-22-2023 Heparin Anti-Xa 0.33 IU/L Normal [facility] Comment on above: Performed By: #### H EPXA #### [facility] [address] [place] [address] Tar Processing Technician: Romel Clemons MD Heparin Anti-Xa 0.18 IU/L Normal [facility] Comment on above: Performed By: #### B MARK FORD, PT #### [facility] [address] [place] [address] Tar Processing Technician: Romel Clemons MD Heparin Anti-Xa 1.12 IU/L Normal [facility] Comment on above: Performed By: #### H EPXA, PT #### [facility] [address] [place] [address] Tar Processing Technician: Romel Clemons MD Troponinon 04-22-2023 Troponin, High Sens 121 ng/L Critically high 0-14 [facility] Comment on above: Result Comment: High Sensitivity Troponin values cannot be compared with other Troponin methodologies. Previous Alert Value Reported Performed By: #### H EPXA, PT #### [facility] [address] [place] [address] Tar Processing Technician: Romel Clemons MD Interpretation and review of laboratory results Abnormal [facility] Troponin I.cardiac High sensitivity method [Mass/Vol] 121 ng/L Critically high 0 - 14 ng/L [facility] Comment on above: High Sensitivity Tro ponin values cannot be compared with other Troponin methodologies. Previous Alert Value Reported [facility] Troponin, High Sens 144 ng/L Critically high 0-14 [facility] Comment on above: Result Comment: High Sensitivity Troponin values cannot be compared with other Troponin methodologies. Previous Alert Value Reported Performed By: #### B LOGAN, CDP, PT #### [facility] [address] [place] [address] Tar Processing Technician: Romel Clemons MD Interpretation and review of laboratory results Abnormal [facility] Troponin I.cardiac High sensitivity method [Mass/Vol] 144 ng/L Critically high 0 - 14 ng/L [facility] Comment on above: High Sensitivity Tro ponin values cannot be compared with other Troponin methodologies. Previous Alert Value Reported [facility] Troponin, High Sens 178 ng/L Critically high 0-14 [facility] Comment on above: Result Comment: High Sensitivity Troponin values cannot be compared with other Troponin methodologies. Previous Alert Value Reported Performed By: #### T ROPI, BMP, CDP, HEPXA #### [facility] [address] [place] [address] Tar Processing Technician: Romel Clemons MD Interpretation and review of laboratory results Abnormal [facility] Troponin I.cardiac High sensitivity method [Mass/Vol] 178 ng/L Critically high 0 - 14 ng/L [facility] Comment on above: High Sensitivity Tro ponin values cannot be compared with other Troponin methodologies. Previous Alert Value Reported [facility] Troponin, High Sens 281 ng/L Critically high 0-14 [facility] Comment on above: Result Comment: High Sensitivity Troponin values cannot be compared with other Troponin methodologies. Previous Alert Value Reported Performed By: #### B MP, CDP, PT #### [facility] [address] [place] [address] Tar Processing Technician: Romel Clemons MD Interpretation and review of laboratory results Abnormal [facility] Troponin I.cardiac High sensitivity method [Mass/Vol] 281 ng/L Critically high 0 - 14 ng/L [facility] Comment on above: High Sensitivity Tro ponin values cannot be compared with other Troponin methodologies. Previous Alert Value Reported [facility] iClinical Vascular duplex lower extrem ity venous bilateralOrdered By: Bakari Richardson on 04-22-2023 Body surface area Derived from formula 2.29 m2 [facility]Clinical Work Phone: [facility] iClinical Work Phone: Vascular duplex lower extrem ity [...] Vein: Patent, compressible. Tibioperoneal Trunk: Acute thrombus. Kelly Machine Operator Details A chung scale, color Doppler imaging and spectral Doppler analysis ultrasound was performed. During the study longitudinal and transverse views were obtained. Pulsed wave doppler was performed. Overall the study quality was limited. Study was technically difficult due to: bedside exam, diffuse subcutaneous edema and edema. [facility] CV CPACS Radiology Study observation (narrative) [facility] APTTon 04-21-2023 aPTT Coag (Bld) [Time] s Critically high 23.0-36.5 [facility] Comment on above: Result Comment: IV Heparin Therapy Range: 66.0-92.0 sec Performed By: #### B MP, CDP, PT #### [facility] [address] [place] [address] Tar Processing Technician: Romel Clemons MD APTT Critically high [facility] Comment on above: IV Heparin Therapy Range: 66.0-92.0 sec Interpretation and review of laboratory results Abnormal [facility] Anti-Xa, Unfractionated Hepa rinon 04-21-2023 Anti-XA Unfrac Heparin 1.12 IU/L [facility] Anti-XA Unfrac Heparin 0.65 IU/L [facility] Brain Natri. Peptideon 04-21 Natriuretic peptide B (Bld) [Mass/Vol] 367 pg/mL High <300 [facility] Comment on above: Result Comment: An age-independent cutoff point of 300 pg/ml has a 98% negative predictive value excluding acute heart failure. Performed By: #### H EPXA, PT #### [facility] [address] [place] [address] Tar Processing Technician: Romel Clemons MD Brain Natriuretic Peptideon 04-21-2023 Interpretation and review of laboratory results Abnormal [facility] Natriuretic peptide B (Bld) [Mass/Vol] 367 pg/mL High NINF - 300 pg/mL [facility] Comment on above: An age-independent cutoff point of 300 pg/ml has a 98% negative predictive value excluding acute heart failure. [facility] CBC with Auto Differentialon 04-21-2023 Basophils (Bld) [#/Vol] 0.00 10*3/uL [facility] Basophils/100 WBC (Bld) 0 % 0 - 2 % [facility] Eosinophils (Bld) [#/Vol] 0.00 10*3/uL [facility] Eosinophils/100 WBC (Bld) 0 % Low 1 - 4 % [facility] Erythrocyte distribution width (RBC) [Ratio] 14.2 % 11.8 - 14.4 % [facility] Hematocrit (Bld) [Volume fraction] 30.2 % Low 36.3 - 47.1 % [facility] Hemoglobin (Bld) [Mass/Vol] 9.4 g/dL Low 11.9 - 15.1 g/dL [facility] Immature granulocytes (Bld) [#/Vol] 0.08 10*3/uL [facility] Immature granulocytes/100 WBC (Bld) 1 % High 0 [facility] Interpretation and review of laboratory results Abnormal [facility] Lymphocytes/100 WBC (Bld) 5 % Low 24 - 44 % [facility] Lymphocytes/100 WBC (Bld) 0.40 % Low [facility] MCH (RBC) [Entitic mass] 30.2 pg 25.2 - 33.5 pg [facility] MCHC (RBC) [Mass/Vol] 31.1 g/dL 28.4 - 34.8 g/dL [facility] MCV (RBC) [Entitic vol] 97.1 fL 82.6 - 102.9 fL [facility] Monocytes/100 WBC (Bld) 6 % 1 - 7 % [facility] Monocytes/100 WBC (Bld) 0.48 % [facility] Morphology Maciej (Bld) [Interp] Normal [facility] Neutrophils/100 WBC (Bld) 88 % High 36 - 66 % [facility] Nucleated RBC/100 WBC (Bld) [Ratio] 0.0 % 0.0 per 100 WBC [facility] Platelet mean volume (Bld) [Entitic vol] 9.3 fL 8.1 - 13.5 fL [facility] Platelets (Bld) [#/Vol] 284 10*3/uL [facility] RBC (Bld) [#/Vol] 3.11 10*6/uL Low 3.95 - 5.1 1 m/uL [facility] Segmented neutrophils/100 WBC (Bld) 7.04 % [facility] WBC other (Bld) [#/Vol] 8.0 [facility] CBC with Diffon 04-21-2023 Abs. Basophil 0.00 k/uL Normal 0.0-0.2 [facility] Comment on above: Performed By: #### H EPXA, PT #### [facility] [address] [place] [address] [id number] Tar Processing Technician: Romel Clemons MD Abs.Imm.Granulocyte 0.08 k/uL Normal 0.00-0.30 [facility] Comment on above: Performed By: #### H EPXA, PT #### [facility] [address] [place] [address] 15243 Tar Processing Technician: Romel Clemons MD Abs.Neutrophil (Seg) 7.04 k/uL Normal 1.8-7.7 [facility] Comment on above: Performed By: #### H EPXA, PT #### [facility] [address] [place] [address] 70684 Tar Processing Technician: Romel Clemons MD Basophils/100 WBC (Bld) 0 % Normal 0-2 [facility] Comment on above: Performed By: #### H EPXA, PT #### [facility] [address] [place] [address] 97181 Tar Processing Technician: Romel Clemons MD Eosinophils (Bld) [#/Vol] 0.00 10*3/uL Normal 0.0-0.4 [facility] Comment on above: Performed By: #### H EPXA, PT #### [address] [address] Tar Processing Technician: Romel Clemons MD Eosinophils/100 WBC (Bld) 0 % Low 1-4 [facility] Comment on above: Performed By: #### H EPXA, PT #### [address] [address] Tar Processing Technician: Romel Clemons MD Immature granulocytes/100 WBC (Bld) 1 % High 0 [facility] Comment on above: Performed By: #### H EPXA, PT #### [facility] [address] [place] [address] 6[address] Tar Processing Technician: Romel Clemons MD Lymphocytes (Bld) [#/Vol] 0.40 10*3/uL Low 1.0-4.8 [facility] Comment on above: Performed By: #### H EPXA, PT #### [facility] [address] [place] [address] Tar Processing Technician: Romel Clemons MD Lymphocytes/100 WBC (Bld) 5 % Low 24-44 [facility] Comment on above: Performed By: #### H EPXA, PT #### [address] [address] Tar Processing Technician: Romel Clemons MD Monocytes (Bld) [#/Vol] 0.48 10*3/uL Normal 0.1-0.8 [facility] Comment on above: Performed By: #### H EPXA, PT #### [address] [address] Tar Processing Technician: Romel Clemons MD Monocytes/100 WBC (Bld) 6 % Normal 1-7 [facility] Comment on above: Performed By: #### H EPXA, PT #### [address] [address] Tar Processing Technician: Romel Clemons MD Morphology Maciej (Bld) [Interp] Normal Normal [facility] Comment on above: Performed By: #### H EPXA, PT #### [address] [address] Tar Processing Technician: Romel Clemons MD Neutrophil (Seg) 88 % High 36-66 [facility] Comment on above: Performed By: #### H EPXA, PT #### [address] [address] Tar Processing Technician: Romel Clemons MD Erythrocyte distribution width (RBC) [Ratio] 14.2 % Normal 11.8-14.4 [facility] Comment on above: Performed By: #### H EPXA, PT #### [address] [address] Tar Processing Technician: Romel Clemons MD Hematocrit (Bld) [Volume fraction] 30.2 % Low 36.3-47.1 [facility] Comment on above: Performed By: #### H EPXA, PT #### [address] [address] Tar Processing Technician: Romel Clemons MD Hemoglobin (Bld) [Mass/Vol] 9.4 g/dL Low 11.9-15.1 [facility] Comment on above: Performed By: #### H EPXA, PT #### [address] [address] Tar Processing Technician: Romel Clemons MD MCH (RBC) [Entitic mass] 30.2 pg Normal 25.2-33.5 [facility] Comment on above: Performed By: #### H EPXA, PT #### [address] [address] Tar Processing Technician: Romel Clemons MD MCHC (RBC) [Mass/Vol] 31.1 g/dL Normal 28.4-34.8 [facility] Comment on above: Performed By: #### H EPXA, PT #### [address] [address] Tar Processing Technician: Romel Clemons MD MCV (RBC) [Entitic vol] 97.1 fL Normal 82.6-102.9 [facility] Comment on above: Performed By: #### H EPXA, PT #### [address] [address] Tar Processing Technician: Romel Clemons MD NRBC Automated 0.0 per 100 WBC Normal 0.0 [facility] Comment on above: Performed By: #### H EPXA, PT #### [facility] [address] [place] [address] Tar Processing Technician: Romel Clemons MD Platelet mean volume (Bld) [Entitic vol] 9.3 fL Normal 8.1-13.5 [facility] Comment on above: Performed By: #### H EPXA, PT #### [facility] [address] [place] [address]36 Tar Processing Technician: Romel Clemons MD Platelets (Bld) [#/Vol] 284 10*3/uL Normal 138-453 [facility] Comment on above: Performed By: #### H EPXA, PT #### [facility] [address] [place] [address] Tar Processing Technician: Romel Clemons MD RBC (Bld) [#/Vol] 3.11 10*6/uL Low 3.95-5.11 [facility] Comment on above: Performed By: #### H EPXA, PT #### [address] [address] Tar Processing Technician: Romel Clemons MD WBC (Bld) [#/Vol] 8.0 10*3/uL Normal 3.5-11.3 [facility] Comment on above: Performed By: #### H EPXA, PT #### [facility] [address] [place] [address]365 Tar Processing Technician: Romel Clemons MD Cath hemo interfaceon 2023 Body surface area Derived from formula 2.29 m2 [facility] Metabolic Profon 1 Albumin [Mass/Vol] 3.5 g/dL Normal 3.5-5.2 [facility] Comment on above: Performed By: #### H EPXA, PT #### [facility] [address] [place] [address] Tar Processing Technician: Romel Clemons MD Albumin/Glob Ratio 1.4 Normal 1.0-2.5 [facility] Comment on above: Performed By: #### H EPXA, PT #### [facility] [address] [place] [address] 76753 Tar Processing Technician: Romel Clemons MD Alkaline Phos 118 U/L High 35-104 [facility] Comment on above: Performed By: #### H EPXA, PT #### [facility] [address] [place] [address] Tar Processing Technician: Romel Clemons MD ALT [Catalytic activity/Vol] 20 U/L Normal 5-33 [facility] Comment on above: Performed By: #### H EPXA, PT #### [facility] [address] [place] [address] Tar Processing Technician: Romel Clemons MD Anion gap [Moles/Vol] 10 mmol/L Normal 9-17 [facility] Comment on above: Performed By: #### H EPXA, PT #### [facility] [address] [place] [address]39 Tar Processing Technician: Romel Clemons MD AST [Catalytic activity/Vol] 28 U/L Normal <32 [facility] Comment on above: Performed By: #### H EPXA, PT #### [facility] [address] [place] [address] Tar Processing Technician: Romel Clemons MD Bilirubin [Mass/Vol] 0.3 mg/dL Normal 0.3-1.2 [facility] Comment on above: Performed By: #### H EPXA, PT #### [facility] [address] [place] [address] Tar Processing Technician: Romel Clemons MD Calcium [Mass/Vol] 8.4 mg/dL Low 8.6-10.4 [facility] Comment on above: Performed By: #### H EPXA, PT #### [facility] [address] [place] [address] Tar Processing Technician: Romel Clemons MD Chloride [Moles/Vol] 99 mmol/L Normal 98-107 [facility] Comment on above: Performed By: #### H EPXA, PT #### [facility] [address] [place] [address]47 Tar Processing Technician: Romel Clemons MD CO2 [Moles/Vol] 25 mmol/L Normal 20-31 [facility] Comment on above: Performed By: #### H EPXA, PT #### [facility] [address] [place] [address] Tar Processing Technician: Romel Clemons MD Creatinine [Mass/Vol] 0.7 mg/dL Normal 0.5-0.9 [facility] Comment on above: Performed By: #### H EPXA, PT #### [facility] [address] [place] [address] Tar Processing Technician: Romel Clemons MD GFR/1.73 sq M.predicted among non-blacks MDRD (S/P/Bld) [Vol rate/Area] mL/min/{1.73_m2} Normal >60 [facility] Comment on above: Result Comment: These results [...] #### H EPXA, PT #### [facility] [address] [place] [address] Tar Processing Technician: Romel Clemons MD Glucose [Mass/Vol] 145 mg/dL High 70-99 [facility] Comment on above: Performed By: #### H EPXA, PT #### [facility] [address] [place] [address] Tar Processing Technician: Romel Clemons MD Potassium [Moles/Vol] 4.1 mmol/L Normal 3.7-5.3 [facility] Comment on above: Performed By: #### H EPXA, PT #### [facility] [address] [place] [address] Tar Processing Technician: Romel Clemons MD Protein [Mass/Vol] 6.0 g/dL Low 6.4-8.3 [facility] Comment on above: Performed By: #### H EPXA, PT #### [facility] [address] [place], [place] [phone] Tar Processing Technician: Romel Clemons MD Sodium [Moles/Vol] 134 mmol/L Low 135-144 [facility] Comment on above: Performed By: #### H EPXA, PT #### [facility] [address] [place], [place] [phone] Tar Processing Technician: Romel Clemons MD Urea nitrogen [Mass/Vol] 14 mg/dL Normal 6-20 [facility] Comment on above: Performed By: #### H EPXA, PT #### [facility] [address] [place], [place] [phone] Tar Processing Technician: Romel Clemons MD Comprehensive Metabolic Pane [facility] 04-21-2023 Albumin [Mass/Vol] 3.5 g/dL 3.5 - 5.2 g/dL [facility] Albumin/Globulin [Mass ratio] 1.4 {ratio} 1.0 - 2.5 [facility] ALP [Catalytic activity/Vol] 118 U/L High 35 - 104 U/L [facility] ALT [Catalytic activity/Vol] 20 U/L 5 - 33 U/L [facility] Anion gap [Moles/Vol] 10 mmol/L 9 - 17 mmol/L [facility] AST [Catalytic activity/Vol] 28 U/L NINF - 32 U/L [facility] Bilirubin [Mass/Vol] 0.3 mg/dL 0.3 - 1 .2 mg/dL [facility] Calcium [Mass/Vol] 8.4 mg/dL Low 8.6 - 10. 4 mg/dL [facility] Chloride [Moles/Vol] 99 mmol/L 98 - 10 7 mmol/L [facility] CO2 [Moles/Vol] 25 mmol/L 20 - 31 mmol/L [facility] Creatinine [Mass/Vol] 0.7 mg/dL 0.5 - 0.9 mg/dL [facility] GFR/1.73 sq M.predicted MDRD (S/P/Bld) [Vol rate/Area] - PINF [facility] Comment on above: These results are not [...] 145 mg/dL High 70 - 99 mg/dL [facility] Interpretation and review of laboratory results Abnormal [facility] Potassium [Moles/Vol] 4.1 mmol/L 3.7 - 5.3 mmol/L [facility] Protein [Mass/Vol] 6.0 g/dL Low 6.4 - 8.3 g/dL [facility] Sodium [Moles/Vol] 134 mmol/L Low 135 - 144 mmol/L [facility] Urea nitrogen [Mass/Vol] 14 mg/dL 6 - 20 mg/dL [facility] Heparin Anti-Xaon 04-21-2023 Heparin Anti-Xa 0.65 IU/L Normal [facility] Comment on above: Performed By: #### H EPXA, PT #### [facility] [address] [place] [address] [phone] Tar Processing Technician: Romel Clemons MD MRSA, DNA, Nasalon Specimen Description .NASAL SWAB Normal [facility] Comment on above: Performed By: #### H EPXA, PT #### [facility] [address] [place], [place] [id number] Tar Processing Technician: Romel Clemons MD PTon 04-21-2023 INR Coag (PPP) [Relative time] 1.4 {INR} Normal [facility] Comment on above: Result Comment: Therapeutic Range: Moderate Anticoagulant Intensity: INR = 2.0-3.0 High Anticoagulant Intensity: INR = 2.5-3.5 Performed By: #### H EPXA, PT #### [facility] [address] [place] [address] Tar Processing Technician: Romel Clemons MD PT Coag (PPP) [Time] 16.8 s High 11.7-14.9 [facility] Comment on above: Performed By: #### H EPXA, PT #### [facility] [address] [place], [place] [phone] Tar Processing Technician: Romel Clemons MD Protime-INRon 04-21-2023 INR Coag (PPP) [Relative time] 1.4 {INR} [facility] Comment on above: Therapeutic Range: Moderate Anticoagulant Intensity: INR = 2.0-3.0 High Anticoagulant Intensity: INR = 2.5-3.5 Interpretation and review of laboratory results Abnormal [facility] PT Coag (PPP) [Time] 16.8 s High [facility] Troponinon 04-21-2023 Troponin, High Sens 401 ng/L Critically high 0-14 [facility] Comment on above: Result Comment: High Sensitivity Troponin values cannot be compared with other Troponin methodologies. Previous Alert Value Reported Performed By: #### B MP, CDP, PT #### [facility] [address] [place] [address] [phone] Tar Processing Technician: Romel Clemons MD Troponin, High Sens 472 ng/L Critically high 0-14 [facility] Comment on above: Result Comment: High Sensitivity Troponin values cannot be compared with other Troponin methodologies. Previous Alert Value Reported Performed By: #### H EPXA #### [facility] [address] [place], [place] [phone] Tar Processing Technician: Romel Clemons MD Interpretation and review of laboratory results Abnormal [facility] Troponin I.cardiac High sensitivity method [Mass/Vol] 401 ng/L Critically high 0 - 14 ng/L [facility] Comment on above: High Sensitivity Tro ponin values cannot be compared with other Troponin methodologies. Previous Alert Value Reported [facility] Troponin, High Sens 573 ng/L Critically high 0-14 [facility] Comment on above: Result Comment: High Sensitivity Troponin values cannot be compared with other Troponin methodologies. Performed By: #### H EPXA, PT #### [facility] [address] [place] [address] Tar Processing Technician: Romel Clemons MD Interpretation and review of laboratory results Abnormal [facility] Troponin I.cardiac High sensitivity method [Mass/Vol] 472 ng/L Critically high 0 - 14 ng/L [facility] Comment on above: High Sensitivity Tro ponin values cannot be compared with other Troponin methodologies. Previous Alert Value Reported [facility] Interpretation and review of laboratory results Abnormal [facility] Troponin I.cardiac High sensitivity method [Mass/Vol] 573 ng/L Critically high 0 - 14 ng/L [facility] Comment on above: High Sensitivity Tro ponin values cannot be compared with other Troponin methodologies. [facility] Inpatient Clinical Summaryon 04-14-2023 Inpatient Clinical Summary [place] [address] Clinical Summary Person Information: Name: ELIZABETH SÁNCHEZ Age: 57 Years : 1965 Sex: Female PCP: CASSIE LORENZ MD Marital Status: Single Race: White Ethnicity: Non- or Language: [place]an Visit Id: Visit Reason: RIGHT KNEE OA Speciality: Acuity: Enc Type: Inpatient Med Service: Medical Arrival: 04/05/2023 06:49:48 Discharge: 04/08/2023 16:15:00 Dispo Type: SNF w/ Medicare Cert Address: [address] [place] [address] [phone] Provider Notes: Patient: ELIZABETH SÁNCHEZ Age: 57 years Sex: Female : 1965 Associated Diagnoses: None Author: Nola Zuniag DO Results Review General results Discharge Information [...] Daily, 0 Refill(s) potassium chloride (Potassium Chloride (Nfa-Ojho-Ttl 10) 10 mEq oral tablet, extended release) 10 mEq, 1 tab(s), Oral, Daily, 0 Refill(s) sertraline (sertraline 25 mg Tab) 25 mg, 1 tab(s), Oral, Daily, 0 Refill(s) Stable course. D/C [place]. ASA 325mg 4 weeks for DVTp. Mepilex. [...] Mouth every day. potassium chloride (Potassium Chloride (Wmb-Vgkm-Bif 10) 10 mEq oral tablet, extended release) 1 Tablets By Mouth every day. sertraline (sertraline 25 mg Tab) 1 Tablets By Mouth every day. Care Team Members: Attending Physician: Nola Zuniga DO Consulting Physician: Radha SHIRLEY Referring Physician: Nola Zuniga DO Follow up: With: Address: When: CASSIE LORENZ [address] [place] [phone] Business (1) With: Address: When: Nola Zuniga [address] [place] [address] Business (1) 05/05/2023 9:30 AM Comments: Keep sched (more content not included)... Normal [facility] Inpatient Patient Summaryon 04-14-2023 Inpatient Patient Summary [address] [address] Patient Discharge Instructions PERSON INFORMATION [...] Follow up: With: Address: When: CASSIE LORENZ [address] [place] [phone] Business (1) With: Address: When: Nola Zuniga [address] [place] [phone] Business (1) 05/05/2023 9:30 AM Comments: Keep [...] DURING YOUR HOSPITAL STAY New Medications [id number], [address], [place] [phone], [phone] aspirin (aspirin 325 mg Tab) 1 Tablets [...] Medications to Continue with No Changes [id number], [address], [place] [id number], [phone] docusate (Colace 100 mg Cap) 1 Capsules [...] __Next Dose: __ potassium chloride (Potassium Chloride (Baw-Whde-Gzf 10) 10 mEq oral tablet, extended release) [...] 30 Days. (more content not included)... Normal [facility] IntraOperative Documentson 0 04-12-2023 IntraOperative Documents [id number] TIFF Normal [facility] Transfer Documentson 024 Transfer Documents [id number] TIFF Normal [facility] BUNon 04-08-2023 Urea nitrogen [Mass/Vol] 13 mg/dL Normal 5-21 [facility] Comment on above: Performed By: #### 2 139062, 5190782, 7056300, [id number], 3556899 ####[facility] [address] [place] [address] CBC w/ Auto Diffon Basophil Absolute 0.0 E9/L Normal 0.0-0.2 [facility] Comment on above: Performed By: #### 2 567016, 6206603, 1265353, 31281446, 9704158 ####[facility] [address] [place] [address] Basophils/100 WBC (Bld) 0.1 % Normal 0.0-2.0 [facility] Comment on above: Performed By: #### 2 654044, 9418858, 9251661, 59794679, 9251202 ####[facility] [address] [place] [address] Eos Absolute 0.0 E9/L Normal 0.0-0.5 [facility] Comment on above: Performed By: #### 2 397163, 6059279, 3678596, 27121795, 8807855 ####[place] [address] [place] [address] Eosinophils/100 WBC (Bld) 0.0 % Normal 0.0-8.0 [facility] Comment on above: Performed By: #### 2 465390, 3826579, 1177403, 06782863, 6550869 ####[address] [address] Erythrocyte distribution width (RBC) [Ratio] 13.3 % Normal 10.9-14.2 [facility] Comment on above: Performed By: #### 2 515312, 2198334, 7251220, 69910934, 8788663 ####[address] [address] Hematocrit (Bld) [Volume fraction] 29.0 % Low 34.0-46.0 [facility] Comment on above: Performed By: #### 2 821804, 2289633, 0447603, 31560222, 8419699 ####[address] [address] Hemoglobin (Bld) [Mass/Vol] 9.5 g/dL Low 12.0-16.0 [facility] Comment on above: Performed By: #### 2 682019, 9266781, 5047167, 02650065, 1006256 ####[facility] [address] [place] [address] Lymph Absolute 1.0 E9/L Normal 1.0-4.0 [facility] Comment on above: Performed By: #### 2 343947, 0828383, 4535999, 10534989, 5574401 ####[facility] [address] [place] [address] Lymphocytes/100 WBC (Bld) 15.4 % Normal 14.0-50.0 [facility] Comment on above: Performed By: #### 2 160492, 1611781, 3215946, 03948976, 9526935 ####[place] [address]3657 MCH (RBC) [Entitic mass] 30.6 pg Normal 27.0-34.0 [facility] Comment on above: Performed By: #### 2 989890, 1230922, 9918669, 50233947, 5903698 ####[place] [address]3657 MCHC (RBC) [Mass/Vol] 33.2 g/dL Normal 31.4-36.0 [facility] Comment on above: Performed By: #### 2 073036, 7851684, 6207793, 34861331, 6030741 ####[place] [address]3657 MCV (RBC) [Entitic vol] 92.3 fL Normal 80.0-100.0 [facility] Comment on above: Performed By: #### 2 393696, 2938097, 4906236, 11499482, 4027337 ####[place] [address]3657 [place] Absolute 0.6 E9/L Normal 0.2-1.0 [facility] Comment on above: Performed By: #### 2 926361, 5928388, 9373671, 44116790, 2625674 ####[place] [address]3657 Monocytes/100 WBC (Bld) 9.8 % Normal 4.0-14.0 [facility] Comment on above: Performed By: #### 2 979169, 8473528, 1495782, 30403041, 5656868 ####[address] [address] Neutro Absolute 4.6 E9/L Normal 2.0-7.5 [facility] Comment on above: Performed By: #### 2 167182, 5351370, 9985437, 08304973, 5853797 ####[facility] [address] [place] [address] Neutro Auto 74.7 % Normal 36.0-75.0 [facility] Comment on above: Performed By: #### 2 133871, 8326497, 1647077, 91757623, 8664635 ####[facility] [address] [place], [place] [address] Platelet 165.0 E9/L Normal 150.0-500.0 [facility] Comment on above: Performed By: #### 2 252918, 5381913, 3524486, 66186697, 5807345 ####[facility] [address] [place] [address] Platelet mean volume (Bld) [Entitic vol] 8.4 fL Normal 6.4-10.8 [facility] Comment on above: Performed By: #### 2 926122, 0632909, 3880083, 40077915, 4509683 ####[facility] [address] [place] [address] RBC 3.1 E12/L Low 4.3-5.9 [facility] Comment on above: Performed By: #### 2 914635, 2501794, 9286429, 10274850, 5086799 ####[facility] [address] [place] [address] WBC 6.2 E9/L Normal 4.0-11.0 [facility] Comment on above: Performed By: #### 2 424166, 8770682, 9953977, 26677650, 4932849 ####[facility] [address] [place] [address] Creatinineon 04-08-2023 Creatinine [Mass/Vol] 0.7 mg/dL Normal 0.5-1.3 [facility] Comment on above: Performed By: #### 2 093937, 3492232, 8682857, 78261611, 5755708 ####[address] [address] Discharge Note-Nursingon Discharge Note-Nursing ELIZABETH SÁNCHEZ :1965 [...] 10 mg Tab) potassium chloride (Potassium Chloride (Yyo-Resj-Btg 10) 10 mEq oral tablet, extended release) [...] Pending Diagnostic Test Results None Pharmacy Information [facility] Discharge Instructions Meriplex dressing per Dr. Ojeda's orders. F /U w/ Dr. Zuniga. PT/OT - WBAT New Follow Up Appointments after Discharge Follow Up with Nola Zuniga When: 05/05/2023 09:30 AM EST Comments: Keep scheduled appointment *ARV[facility] OFFICE* Where: [address] [place] [address]- Business (1) Follow Up with CASSIE LORENZ When: In 0 days Where: [address] [place] [address]- Business (1) Medications What How Much When Why Instructions Next Dose New aspirin (aspirin 325 mg Tab) 1 Tablets By Mouth Every day Duration: 30 Days Daily for 4 weeks for blood clot prevention. Pickup at [facility]/pharmacy #[id number] 04/09 @ 9 AM Changed acetaminophen-oxycodone (Percocet [...] Mouth 2 times a day Pickup at [facility]/pharmacy #[id number] 04/08 @ 9 PM Unchanged famotidine (famotidine 20 mg Tab) 1 Tablets By Mouth 2 times a day 04/08 @ 9 PM Unchanged montelukast (montelukast 10 mg Tab) 1 Tablets By Mouth Every day 04/09 @ 9 AM Unchanged potassium chloride (Potassium Chloride (Nnw-Jwcj-Thx 10) 10 mEq oral tablet, extended release) 1 Tablets By Mouth Every day 04/09 @ 9 AM Unchanged sertraline (sertraline 25 mg Tab) 1 Tablets By Mouth Every day 04/09 @ 9 AM Pharmacy Information [facility]/pharmacy #[id number]: [address] [place], [place] [id number] [phone] What How Much When Comments Stop Taking [...] fL (04/08/23 05:2 (more content not included)... [facility] Interdisciplinary Note - Jordon e Manageron 04-08-2023 Interdisciplinary Note - Charge Hand CRM to room to discuss DC planning. [...] CRM called Dottie Sánchez and updated him [facility] Comment on above: Result Comment: Elec tronically Signed By: Nidia Rodriguez\.br\Date and Time Signed: 04/08/23 13:36 EST Lyjarodon 04-08-2023 Anion gap [Moles/Vol] 10 mmol/L Normal 6-16 [facility] Comment on above: Performed By: #### 2 506734, 0456213, 5342242, 71591176, 7824475 ####[facility] [address] [place] [address] Chloride [Moles/Vol] 105 mmol/L Normal 101-111 [facility] Comment on above: Performed By: #### 2 971513, 2915513, 0744679, 24712644, 8106667 ####[facility] [address] [place] [address] CO2 [Moles/Vol] 27 mmol/L Normal 21-31 [facility] Comment on above: Performed By: #### 2 981011, 0347005, 7728776, 85909180, 2773873 ####[facility] [address] [place] [address] Potassium [Moles/Vol] 3.9 mmol/L Normal 3.5-5.3 [facility] Comment on above: Performed By: #### 2 870409, 4265222, 6765329, 82298098, 6918546 ####[facility] [address] [place] [address] Sodium [Moles/Vol] 138 mmol/L Normal 135-145 [facility] Comment on above: Performed By: #### 2 479075, 4549479, 7016115, 38822554, 9249097 ####[facility] [address] [place] [address] Progress Note-Physicianon Progress Note-Physician Assessment/Plan Request to [...] deep vein thrombosis (DVT) prophylaxis (Z79.899: Other longterm (current) drug therapy) Defer to ortho team -Plan discussed w/ patient, nursing staff and CRM. -Disposition: Pt. is medically stable for addition to rehabilitation facility. This report was transcribed using voice recognition software. Every effort was made to ensure accuracy, however, inadvertently computerized pairer odds mistakes may be present. Subjective No acute [...] 05:29:00) Lymph Auto: 15.4 % (04/08/23 05:29:00) [place] Auto: 9.8 % (04/08/23 05:29:00) Eos Auto: 0 % (04/08/23 05:29:00) Basophil Auto: 0.1 % (04/08/23 05:29:00) Neutro Absolute: 4.6 E9/L (04/08/23 05:29:00) Lymph Absolute: 1 E9/L (04/08/23 05:29:00) [place] Absolute: 0.6 E9/L (04/08/23 05:29:00) Eos Absolute: [...] mg-5 mg (more content not included)... Normal [facility] Comment on above: Result Comment: Elec tronically [...] seizure as a child / SNOMED CT [id number] / Confirmed Cognitive developmental delay / SNOMED CT 7748205870 / Confirmed Physical Examination Gastrointestinal: Soft, Non-tender. [...] with d/c to [facility] today.. Normal [facility] Comment on above: Result Comment: Elec tronically Signed By: Nola Zuniga DO\.br\Date and Time Signed: 04/08/23 07:30 EST eGFRon 04-08-2023 eGFR 99 mL/min/1.73 m2 Normal >=59 [facility] Comment on above: Order Comment: Order added by Discern Expert. Performed By: #### 2 604816, 9172913, 4986975, 32337653, 1379334 ####[facility] [address] [place] [address] Auto Diffon 04-07-2023 Basophils/100 WBC (Bld) 0.1 % Normal 0.0-2.0 [facility] Comment on above: Order Comment: Order Added by Discern Expert. Performed By: #### 2 416564, 0067207, 6453527, 7615097, 8154061, 61311141 ####[facility] [address] [place] [address] Basophils/Leukocytes Auto (Bld) [Pure # fraction] 0.0 E9/L Normal 0.0-0.2 [facility] Comment on above: Order Comment: Order Added by Discern Expert. Performed By: #### 2 492815, 4625971, 4543909, 1188110, 1152171, 75412412 ####[facility] [address] [place] [address] Eosinophils/100 WBC (Bld) 0.0 % Normal 0.0-8.0 [facility] Comment on above: Order Comment: Order Added by Discern Expert. Performed By: #### 2 690228, 7390439, 9369236, 3900816, 3690403, 84653039 ####[address] [place] [address] Eosinophils/Leukocyt es Auto (Bld) [Pure # fraction] 0.0 E9/L Normal 0.0-0.5 [facility] Comment on above: Order Comment: Order Added by Cynthia Expert. Performed By: #### 2 663060, 1196710, 8050529, 4818810, 8135373, 43931910 ####[address] [address] Lymphocytes/100 WBC (Bld) 19.1 % Normal 14.0-50.0 [facility] Comment on above: Order Comment: Order Added by Cynthia Expert. Performed By: #### 2 353584, 2016878, 5123294, 5177671, 7219281, 46545964 ####[address] [address] Lymphocytes/Leukocyt es Auto (Bld) [Pure # fraction] 1.3 E9/L Normal 1.0-4.0 [facility] Comment on above: Order Comment: Order Added by Cynthia Expert. Performed By: #### 2 685642, 9903503, 9447667, 6522250, 1066178, 59184017 ####[address] [place] [address] Monocytes/100 WBC (Bld) 12.6 % Normal 4.0-14.0 [facility] Comment on above: Order Comment: Order Added by Discern Expert. Performed By: #### 2 998894, 7952005, 4698399, 0556329, 3170048, 04022257 ####[address] [place] [address] Monocytes/Leukocytes Auto (Bld) [Pure # fraction] 0.8 E9/L Normal 0.2-1.0 [facility] Comment on above: Order Comment: Order Added by Discern Expert. Performed By: #### 2 178734, 0239148, 7861232, 7251506, 3293289, 62555528 ####[address] [place] [address] Neutrophils/100 WBC (Bld) 68.2 % Normal 36.0-75.0 [facility] Comment on above: Order Comment: Order Added by Cynthia Expert. Performed By: #### 2 910725, 4151396, 2618565, 8808801, 6919729, 07750775 ####[address] [address] Neutrophils/Leukocyt es Auto (Bld) [Pure # fraction] 4.6 E9/L Normal 2.0-7.5 [facility] Comment on above: Order Comment: Order Added by Discern Expert. Performed By: #### 2 675320, 0709982, 5703704, 1413639, 2222040, 54334232 ####[address] [place] [address] BUNon 04-07-2023 Urea nitrogen [Mass/Vol] 12 mg/dL Normal 5-21 [facility] Comment on above: Performed By: #### 2 278094, 3397123, 8921757, 6409124, 2472749, 14826295 ####[address] [place] [address] CBC w/ Auto Diffon Erythrocyte distribution width (RBC) [Ratio] 13.6 % Normal 10.9-14.2 [facility] Comment on above: Performed By: #### 2 995383, 2798452, 9301514, 1190547, 7983454, 18087726 ####[address] [place] [address] Hematocrit (Bld) [Volume fraction] 28.7 % Low 34.0-46.0 [facility] Comment on above: Performed By: #### 2 535155, 3419955, 2803813, 0306734, 9282497, 64189570 ####[address] [address] Hemoglobin (Bld) [Mass/Vol] 9.7 g/dL Low 12.0-16.0 [facility] Comment on above: Performed By: #### 2 133836, 4688070, 5258839, 7520442, 7461554, 94918632 ####[address] [address] MCH (RBC) [Entitic mass] 30.8 pg Normal 27.0-34.0 [facility] Comment on above: Performed By: #### 2 626423, 1066813, 6893925, 5873963, 5195141, 83385064 ####[address] [address] MCHC (RBC) [Mass/Vol] 33.7 g/dL Normal 31.4-36.0 [facility] Comment on above: Performed By: #### 2 442180, 0578008, 4803559, 0109507, 6132864, 56040070 ####[address] [place] [address] MCV (RBC) [Entitic vol] 91.4 fL Normal 80.0-100.0 [facility] Comment on above: Performed By: #### 2 766257, 0932904, 1312100, 5860341, 0268642, 20673128 ####[address] [place] [address] Platelet mean volume (Bld) [Entitic vol] 8.5 fL Normal 6.4-10.8 [facility] Comment on above: Performed By: #### 2 700635, 1127550, 5688308, 9514116, 2225511, 77872542 ####[facility] [address] [place] [address] Platelets (Bld) [#/Vol] 164.0 E9/L Normal 150.0-500.0 [facility] Comment on above: Performed By: #### 2 898544, 6178242, 6841236, 5427992, 8643485, 21563508 ####[facility] [address] [place] [address] RBC (Bld) [#/Vol] 3.1 E12/L Low 4.3-5.9 [facility] Comment on above: Performed By: #### 2 822106, 3767719, 6098861, 5643220, 1549063, 16155196 ####[facility] [address] [place] [address] WBC corrected for nucl RBC Auto (Bld) [#/Vol] 6.7 E9/L Normal 4.0-11.0 [facility] Comment on above: Performed By: #### 2 586001, 8624464, 7495783, 6485981, 5534080, 65317037 ####[facility] [address] [place] [address] Creatinineon 04-07-2023 Creatinine [Mass/Vol] 0.6 mg/dL Normal 0.5-1.3 [facility] Comment on above: Performed By: #### 2 804074, 9480735, 2282173, 6220624, 9175684, 72419691 ####[facility] [address] [place] [address] Interdisciplinary Note - Jordon e Manageron 04-07-2023 Interdisciplinary Note - Charge Hand CRM to room to discuss DC planning. [...] updated, CRM contact provided. CRM following. Normal [facility] Comment on above: Result Comment: Elec tronically Signed By: Nidia Rodriguez\.br\Date and Time Signed: 04/07/23 09:47 EST Joel 04-07-2023 Anion gap [Moles/Vol] 8 mmol/L Normal 6-16 [facility] Comment on above: Performed By: #### 2 188991, 9720216, 5604596, 1114505, 1523290, 36165196 ####[facility] [address] [place] [address] Chloride [Moles/Vol] 105 mmol/L Normal 101-111 [facility] Comment on above: Performed By: #### 2 400610, 6438665, 4679036, 4790867, 1553375, 76608811 ####[facility] [address] [place] [address] CO2 [Moles/Vol] 30 mmol/L Normal 21-31 [facility] Comment on above: Performed By: #### 2 889584, 8442269, 4723777, 1180004, 6544526, 83912421 ####[facility] [address] [place] [address] Potassium [Moles/Vol] 4.2 mmol/L Normal 3.5-5.3 [facility] Comment on above: Performed By: #### 2 592050, 7906170, 9167510, 8173516, 0818336, 03979031 ####[facility] [address] [place] [address] Sodium [Moles/Vol] 139 mmol/L Normal 135-145 [facility] Comment on above: Performed By: #### 2 395447, 9686524, 0676907, 6582796, 5330758, 57266168 ####[facility] [address] [place] [address] Progress Note-Physicianon Progress Note-Physician Assessment/Plan PLAN: 1. [...] 04:46:00) Lymph Auto: 19.1 % (04/07/23 04:46:00) [place] Auto: 12.6 % (04/07/23 04:46:00) Eos Auto: 0 % (04/07/23 04:46:00) Basophil Auto: 0.1 % (04/07/23 04:46:00) Neutro Absolute: 4.6 E9/L (04/07/23 04:46:00) Lymph Absolute: 1.3 E9/L (04/07/23 04:46:00) [place] Absolute: 0.8 E9/L (04/07/23 04:46:00) Eos Absolute: [...] 20 mg (more content not included)... Normal [facility] Comment on above: Result Comment: Elec tronically Signed By: Radha SHIRLEY\.br\Date and Time Signed: 04/07/23 09:44 EST\.br\Electronically Co-Signed By: Lincoln Hammond DO\.br\Date and Time Co-Signed: 04/07/23 12:35 EST eGFRon 04-07-2023 eGFR 103 mL/min/1.73 m2 Normal >=59 [facility] Comment on above: Order Comment: Order added by Discern Expert. Performed By: #### 2 002359, 0063459, 3437561, 0942768, 7209919, 89453645 ####[facility] [address] [place] [address] Auto Diffon 04-06-2023 Basophils/100 WBC (Bld) 0.1 % Normal 0.0-2.0 [facility] Comment on above: Order Comment: Order Added by Discern Expert. Performed By: #### 2 436466, 8347469, 0934667, 6709756, 8934028, 23601840 ####[facility] [address] [place] [address] Basophils/Leukocytes Auto (Bld) [Pure # fraction] 0.0 E9/L Normal 0.0-0.2 [facility] Comment on above: Order Comment: Order Added by Cynthia Expert. Performed By: #### 2 556188, 2987888, 9586682, 5523674, 3151076, 29635475 ####[facility] [address] [place] [address] Eosinophils/100 WBC (Bld) 0.0 % Normal 0.0-8.0 [facility] Comment on above: Order Comment: Order Added by Discern Expert. Performed By: #### 2 196525, 3401160, 8537596, 2120457, 2824824, 18664192 ####[address] [place] [address] Eosinophils/Leukocyt es Auto (Bld) [Pure # fraction] 0.0 E9/L Normal 0.0-0.5 [facility] Comment on above: Order Comment: Order Added by Discern Expert. Performed By: #### 2 081184, 4505996, 5004773, 9031347, 1751889, 21118746 ####[address] [address] Lymphocytes/100 WBC (Bld) 17.4 % Normal 14.0-50.0 [facility] Comment on above: Order Comment: Order Added by Cynthia Expert. Performed By: #### 2 088350, 6615755, 0757463, 6867380, 9309596, 17723581 ####[address] [address] Lymphocytes/Leukocyt es Auto (Bld) [Pure # fraction] 1.6 E9/L Normal 1.0-4.0 [facility] Comment on above: Order Comment: Order Added by Cynthia Expert. Performed By: #### 2 430739, 0307920, 9552401, 3072161, 7690983, 77306249 ####[address] [address] Monocytes/100 WBC (Bld) 10.1 % Normal 4.0-14.0 [facility] Comment on above: Order Comment: Order Added by Cynthia Expert. Performed By: #### 2 130351, 9971371, 7667502, 4607481, 4428213, 60274512 ####[address] [place] [address] Monocytes/Leukocytes Auto (Bld) [Pure # fraction] 0.9 E9/L Normal 0.2-1.0 [facility] Comment on above: Order Comment: Order Added by Cynthia Expert. Performed By: #### 2 853637, 7014985, 4301738, 0649326, 9606563, 65309278 ####[address] [place] [address] Neutrophils/100 WBC (Bld) 72.4 % Normal 36.0-75.0 [facility] Comment on above: Order Comment: Order Added by Discern Expert. Performed By: #### 2 505245, 3157599, 2703422, 9479179, 2806483, 25650415 ####[address] [place] [address] Neutrophils/Leukocyt es Auto (Bld) [Pure # fraction] 6.6 E9/L Normal 2.0-7.5 [facility] Comment on above: Order Comment: Order Added by Discern Expert. Performed By: #### 2 095765, 2734900, 5226709, 4996617, 7541458, 89870056 ####[address] [address] BUNon 04-06-2023 Urea nitrogen [Mass/Vol] 16 mg/dL Normal 5-21 [facility] Comment on above: Performed By: #### 2 462487, 2034436, 1910650, 6536449, 7147151, 31885290 ####[address] [address] CBC w/ Auto Diffon Erythrocyte distribution width (RBC) [Ratio] 13.2 % Normal 10.9-14.2 [facility] Comment on above: Performed By: #### 2 219522, 0790576, 9320941, 3365134, 4199192, 52535535 ####[address] [place] [address] Hematocrit (Bld) [Volume fraction] 31.4 % Low 34.0-46.0 [facility] Comment on above: Performed By: #### 2 441177, 7775866, 7657097, 8507186, 0840774, 28476225 ####[address] [place] [address] Hemoglobin (Bld) [Mass/Vol] 10.5 g/dL Low 12.0-16.0 [facility] Comment on above: Performed By: #### 2 040446, 6693346, 8722783, 3143936, 0853414, 64446408 ####[address] [address] MCH (RBC) [Entitic mass] 30.4 pg Normal 27.0-34.0 [facility] Comment on above: Performed By: #### 2 464325, 8492027, 4467914, 2477210, 9767566, 02135987 ####[address] [address] MCHC (RBC) [Mass/Vol] 33.6 g/dL Normal 31.4-36.0 [facility] Comment on above: Performed By: #### 2 107382, 5332331, 1661670, 8852200, 9479479, 79566843 ####[address] [address] MCV (RBC) [Entitic vol] 90.4 fL Normal 80.0-100.0 [facility] Comment on above: Performed By: #### 2 606354, 7898027, 7249681, 3661313, 0265530, 69992388 ####[address] [address] Platelet mean volume (Bld) [Entitic vol] 8.2 fL Normal 6.4-10.8 [facility] Comment on above: Performed By: #### 2 352362, 2866537, 7724838, 2444418, 6914787, 71392537 ####[address] [address] Platelets (Bld) [#/Vol] 197.0 E9/L Normal 150.0-500.0 [facility] Comment on above: Performed By: #### 2 113975, 4742786, 0001086, 8076658, 5817105, 25408968 ####[facility] [address] [place] [address] RBC (Bld) [#/Vol] 3.5 E12/L Low 4.3-5.9 [facility] Comment on above: Performed By: #### 2 559874, 2472848, 5171784, 6099614, 0941123, 31114172 ####[facility] [address] [place] [address] WBC corrected for nucl RBC Auto (Bld) [#/Vol] 9.2 E9/L Normal 4.0-11.0 [facility] Comment on above: Performed By: #### 2 306514, 0158579, 4254202, 8550321, 6861378, 98777360 ####[facility] [address] [place] [address] Consent for Anesthesiaon Consent for Anesthesia [id number]#1.00 TIFF Normal [facility] Creatinineon 04-06-2023 Creatinine [Mass/Vol] 0.8 mg/dL Normal 0.5-1.3 [facility] Comment on above: Performed By: #### 2 328197, 9388133, 9670891, 4597249, 5232350, 20802600 ####[facility] [address] [place] [address] Interdisciplinary Note - Jordon e Manageron 04-06-2023 Interdisciplinary Note - Charge Hand CRM to room to discuss DC planning. Patient is awake, alert and mostly oriented. Patient verified PCP with help, insurance and DME on admit. Patient is inpatient, medicare form completed on admit. Patient is from home alone. Will need transport to SNF. Patient had right TKA. Patient is assigned to Dr Zuniga, see notes. She also has hospitalist Shelby PHOTOSTAT OPERATOR on case, see notes. Patient will need SNF placement. Patient will work with PT/OT. She will need a 3M stay and can DC to SNF 04/08/23. SNF choice is [facility] and they have accepted. Patient white board updated, CRM contact provided. CRM following. SARAH is going to do an onsite visit with patient Normal [facility] Comment on above: Result Comment: Elec tronically [...] safety and to maximize Pt's independence. Normal [facility] IntraOperative Documentson 0 04-06-2023 IntraOperative Documents [id number]#1.00 TIFF Normal [facility] Lyteson 04-06-2023 Anion gap [Moles/Vol] 10 mmol/L Normal - [facility] Comment on above: Performed By: #### 2 028769, 6650316, 0928665, 2350678, 8370327, 03092607 ####[facility] [address] [place] [address] Chloride [Moles/Vol] 105 mmol/L Normal 101-111 [facility] Comment on above: Performed By: #### 2 626440, 8475678, 6501360, 3070304, 6415216, 28477555 ####[facility] [address] [place] [address] CO2 [Moles/Vol] 29 mmol/L Normal 21-31 [facility] Comment on above: Performed By: #### 2 086766, 4896307, 3586576, 6064958, 9342558, 32731628 ####[facility] [address] [place] [address] Potassium [Moles/Vol] 3.8 mmol/L Normal 3.5-5.3 [facility] Comment on above: Performed By: #### 2 699357, 3433409, 0338625, 3690716, 3301903, 17538274 ####[facility] [address] [place] [address] Sodium [Moles/Vol] 140 mmol/L Normal 135-145 [facility] Comment on above: Performed By: #### 2 014174, 8027971, 0684632, 9932596, 8046799, 70643914 ####[facility] [address] [place] [address] Message from Medicareon 03-22 Message from Medicare [id number]#1.00T IFF Normal [facility] Preoperative Documentson Preoperative Documents [id number]#1.00 TIFF Normal [facility] Progress Note-Physicianon Progress Note-Physician Assessment/Plan PLAN: 1. [...] 04:49:00) Lymph Auto: 17.4 % (04/06/23 04:49:00) [place] Auto: 10.1 % (04/06/23 04:49:00) Eos Auto: 0 % (04/06/23 04:49:00) Basophil Auto: 0.1 % (04/06/23 04:49:00) Neutro Absolute: 6.6 E9/L (04/06/23 04:49:00) Lymph Absolute: 1.6 E9/L (04/06/23 04:49:00) [place] Absolute: 0.9 E9/L (04/06/23 04:49:00) Eos Absolute: [...] tab(s), Ora (more content not included)... Normal [facility] Comment on above: Result Comment: Elec tronically [...] seizure as a child / SNOMED CT 7855774694 / Confirmed Cognitive developmental delay / SNOMED CT 2627423748 / Confirmed Physical Examination Gastrointestinal: Soft, Non-tender. [...] weeks for DVTp.. Velasquez is out.. Normal [facility] Comment on above: Result Comment: Elec tronically Signed By: Nola Zuniga DO\.br\Date and Time Signed: 04/06/23 07:14 EST eGFRon 04-06-2023 eGFR 84 mL/min/1.73 m2 Normal >=59 [facility] Comment on above: Order Comment: Order added by Discern Expert. Performed By: #### 2 574894, 5600621, 5695085, 3242951, 7925639, 36680935 ####[facility] [address] [place] [address] ABO/Rhon 04-05-2023 ABO/Rh Positive Invalid Interpretation Code [facility] Comment on above: Performed By: #### 2 029303, 61371953, 82582706, 21931716 ####[facility] [address] [place] [address] ABO/Rh History Checkon 04-05 ABO/Rh History Check Verified Hx Blood Type Normal [facility] Comment on above: Performed By: #### 2 031601, 84964719, 28379949, 82687598 ####[facility] [address] [place] [address] ABSCon 04-05-2023 ABSC Gel Interp Negative Normal [facility] Comment on above: Performed By: #### 2 285441, 87376739, [id number], [id number] ####[facility] [address] [place] [address] Blood Bank ID#on 04-05-2023 BBID# [id number] Invalid Interpretation Code [facility] Comment on above: Performed By: #### 2 [id number], [id number], [id number], [id number] ####[facility] [address] [place] [address] Consent for Treatmenton 03-22 Consent for Treatment [id number] IFF Normal [facility] H&P Updateon 04-05-2023 H&P Update [id number] FF Normal [facility] Interdisciplinary Note - Jordon e Manageron 04-05-2023 Interdisciplinary Note - Charge Hand CRM to room to discuss DC planning. [...] she will need transport at DC Normal [facility] Comment on above: Result Comment: Elec tronically Signed By: Nidia Rodriguez\.br\Date and Time Signed: 04/05/23 15:13 EST Main OR Intraoperative Recor don 04-05-2023 Main OR Intraoperative Record IntraOp Document Type FT Summary Primary Physician: Nola Zuniga DO Finalized Date/Time: 04/06/23 14:13:18 Pt. Name: ELIZABETH SÁNCHEZ/Sex: 1965 Female Med Rec #: [id number] Physician: Nola Zuniga DO Financial #: [id number] Pt. Type: I Room/Bed: N317/01 Admit/Disch: 04/05/23 [...] T Wilhelm CST, Macie C Role Performed PHYSICAL FITNESS TEACHER Surgeon - Primary FUNERAL HOME MAKEUP ARTIST/SA Time In 04/05/23 09:32:00 04/05/23 09:32:00 04/05/23 09:32:00 Time Out 04/05/23 11:03:00 04/05/23 11:03:00 04/05/23 11:03:00 Procedure KNEE TOTAL KNEE TOTAL KNEE TOTAL ARTHROPLASTY(Right) ARTHROPLASTY(Right) ARTHROPLASTY(Right) Comments IS SUPERVISING Last Modified By: Amalia Shabazz Kelsie E Burgderfer, Kelsie E 04/05/23 11:07:30 04/05/23 11:07:30 04/05/23 11:07:30 Entry 4 Entry 5 Entry 6 Case Attendee Amalia Shabazz Adam A Dent CST, Beau Role Performed Welder/Fabricator - Primary Scrub - Primary Staff - Other Time In 04/05/23 09:32:00 04/05/23 09:32:00 01/15/24 09:32:00 Time Out 04/05/23 11:03:00 04/05/23 11:03:00 04/05/23 11:03:00 Procedure KNEE TOTAL KNEE TOTAL KNEE TOTAL ARTHROPLASTY(Right) ARTHROPLASTY(Right) ARTHROPLASTY(Right) Comments 2ND SCRUB Last Modified By: Amalia Shabazz Kelsie E Burgderfer, Kelsie E 04/05/23 11:07:30 04/05/23 11:07:30 04/05/23 11:07:30 Entry 7 Case Attendee Buzz Hickey Role Performed SPECIAL EVENTS DRIVER Time In 04/05/23 09:32:00 Time Out 04/05/23 [...] CRNA, Given Participants Briana KEVIN, Harish Delvalle FUNERAL HOME MAKEUP ARTIST, Bernadine Hui, Amalia Shabazz, Tez Lau Dent FUNERAL HOME MAKEUP ARTIST, Edelmira Chester Alejandro Time Out Complete 04/05/23 [...] protective measure (more content not included)... Normal [facility] Main OR PACU I Recordon 03-22 Main OR PACU I Record PACU Phase I Document Type FT Summary Primary Physician: Nola Zuniga DO Finalized Date/Time: 04/05/23 12:20:40 Pt. Name: ELIZABETH SÁNCHEZ/Sex: 1965 Female Med Rec #: [id number] Physician: Nola Zuniga DO Financial #: [id number] Pt. Type: I Room/Bed: [place] [address] Admit/Disch: 04/05/23 06:49:48 - Institution: Case Times [...] By: Zoraida Ferrer RN 04/05/23 12:20 Normal [facility] Main OR Preoperative Recordo n 04-05-2023 Main OR Preoperative Record PreOp Document Type FT Summary Primary Physician: Nola Zuniga DO Finalized Date/Time: 04/05/23 10:11:23 Pt. Name: ELIZABETH SÁNCHEZ/Sex: 1965 Female Med Rec #: [id number] Physician: Nola Zuniga DO Financial #: [id number] Pt. Type: A Room/Bed: [facility]/ Admit/Disch: 04/05/23 06:49:48 - Institution: Case [...] Signed By: Amalia Shabazz 04/05/23 10:11 Normal [facility] Monitor Recordon 04-05-2023 Monitor Record [id number]#[id number] TIFF Normal [facility] Monitor Record [id number]#[id number] TIFF Normal [facility] Operative Reporton Operative Report SURGERY DATE: 04/05/2023 [...] procedure. Bryan Babb CRNA lr Dictated: 04/05/2023 [id number] Transcribed: 04/05/2023 [facility] Comment on above: Result Comment: Elec tronically Signed By: Bryan Babb CRNA\.br\Date and Time Signed: 04/05/23 15:26 EST Operative Report SURGERY DATE: 04/05/2023 SCREW EYE ASSEMBLER: Bernadine Moreira CST PREOPERATIVE DIAGNOSIS: Right knee end-stage osteoarthritis with failure of conservative injection care POSTOPERATIVE DIAGNOSIS: Right knee end-stage osteoarthritis with failure of conservative injection care OPERATION: Right total knee arthroplasty ANESTHESIA: Spinal with block with sedation ESTIMATED BLOOD LOSS: Zero SPECIMEN: Bone IMPLANTS: The ScoreGridune Knee System with a 7 right PS femur, a 6 cemented tibial tray, a 6 mm polyethylene, 35 mm patellar button TOURNIQUET TIME: See nurse's record HISTORY AND INDICATIONS: Elizabeth is a 57-year-old female with progressive bilateral knee osteoarthritis that is xvbd-mt-jbhz, grade 4 severe in nature. She has [...] protocol. Once the bone was prepared, the [employer] cement was mixed. All components were [...] patient's condition satisfactory Chad Bright Dictated: 04/05/2023 [id number] Transcribed: 04/05/2023 cc:Cassie Lorenz M.D. [facility] Comment on above: Result Comment: Elec tronically [...] Room in stable and satisfactory condition.. 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 It is therefore advised not to drive until after your first office visit following surgery FOLLOW-UP OFFICE VISIT: Nola Zuinga, DO [facility] [address] [place] [address] Reviewed: 06-27 [facility] Progress Note-Physicianon Progress Note-Physician Patient: ELIZABETH SÁNCHEZ [...] BID, # 20 cap(s), Refills(s) 0, Pharmacy: [facility]/pharmacy #[id number], 177, cm, 03/17/23 13:00:00 EST, Height/Length Dosing, 102, kg, 03/17/23 13:00:00 EST, Weight Dosing Percocet 5 mg-325 mg oral tablet: See Instructions, 50 tab(s), Refill(s) 0, Take one to two oral every 4 hours as needed for knee surgical pain., [facility]/pharmacy #[id number], 177, cm, 03/17/23 13:00:00 EST, Height/Length Dosing, 102, kg, 03/17/23 13:00:00 EST, W (more content not included)... [facility] Comment on above: Result Comment: Elec tronically [...] BID, # 20 cap(s), Refills(s) 0, Pharmacy: [facility]/pharmacy #[id number], 177, cm, 03/17/23 13:00:00 EST, Height/Length Dosing, 102, kg, 03/17/23 13:00:00 EST, Weight Dosing Percocet 5 mg-325 mg oral tablet: See Instructions, 50 tab(s), Refill(s) 0, Take one to two oral every 4 hours as needed for knee surgical pain., [facility]/pharmacy #[id number], 177, cm, 03/17/23 13:00:00 EST, Height/Length Dosing, 102, kg, 03/17/23 13:00:00 EST, Weight Dosing Documented Medications Documented Eliquis 5 mg oral tablet: 5 mg = 1 tab(s), Oral, BID, Refills(s) 0, Blood Thinner Oyster Shell Calcium 1250 mg (500 mg elemental calcium) oral tablet: 1,250 mg = 1 tab(s), Oral, Daily, Refills(s) 0, Prophylaxis Potassium Chloride ( (more content not included)... Normal [facility] Comment on above: Result Comment: Elec tronically Signed By: Yang Acevedo DO\.br\Date and Time Signed: 04/05/23 08:19 EST UA With Cult Reflexon 2023 Bilirubin Ql (U) Negative Normal Negative [facility] Comment on above: Performed By: #### 1 [id number] ####[facility] [address] [place] [address] Clarity (U) CLEAR Normal Clear [facility] Comment on above: Performed By: #### 1 [id number] ####[facility] [address] [place] [address] Color (U) YELLOW Normal Yellow [facility] Comment on above: Performed By: #### 1 [id number] ####[facility] [address] [place] [address] Epithelial cells.squamous LM.HPF (Urine sed) [#/Area] 0-2 Normal 0-2 [facility] Comment on above: Performed By: #### 1 7292033 ####[facility] [address] [place] [address] Glucose Test strip (U) [Mass/Vol] Negative Normal Negative [facility] Comment on above: Performed By: #### 1 2047003 ####[address] [place] [address] Hemoglobin Ql (U) Negative Normal Negative [facility] Comment on above: Performed By: #### 1 4027764 ####[address] [place] [address] Ketones (U) [Mass/Vol] Negative Normal Negative [facility] Comment on above: Performed By: #### 1 6645544 ####[address] [address] Wautoma.plasma/Lithi um.RBC (Bld) [Mass ratio] 0-3 Normal 0-3 [facility] Comment on above: Performed By: #### 1 7093658 ####[place] [address] [place] [address] Nitrite Ql (U) Negative Normal Negative [facility] Comment on above: Performed By: #### 1 7339125 ####[address] [address] pH (U) 7.0 [pH] Invalid Interpretation Code 5.0-9.0 [facility] Comment on above: Performed By: #### 1 6698780 ####[address] [place] [address] Protein (U) [Mass/Vol] Negative Normal Negative [facility] Comment on above: Performed By: #### 1 1007886 ####[address] [place] [address] Specific gravity (U) [Rel density] 1.020 Invalid Interpretation Code 1.005-1.030 [facility] Comment on above: Performed By: #### 1 [id number] ####[place] [address] [address] Type of Urine collection method Velasquez Normal [facility] Comment on above: Performed By: #### 1 7053843 ####[address] [place] [address] Urobilinogen Qn (U) 0.2 {Amina'U}/dL Normal 0.0-1.0 [facility] Comment on above: Performed By: #### 1 9085720 ####[facility] [address] [place] [address] WBC Auto Ql (U) Negative Normal Negative [facility] Comment on above: Performed By: #### 1 5646949 ####[address] [address] WBC LM.HPF (Urine sed) [#/Area] 0-5 Normal 0-5 [facility] Comment on above: Performed By: #### 1 9818045 ####[address] [address] XR Knee 1 or 2 Views Righton [...] mGy = na DAP = na Normal [facility] Outpatient Surgery Discharge Instructionon 04-01-2023 Outpatient Surgery Discharge Instruction [address] [address] Patient Discharge Instructions PERSON INFORMATION Name: ELIZABETH [...] up: With: Address: When: Nola Zuniga [address] [place] [address] Business (1) Comments: Keep scheduled appointment Type Location Start [facility] Surgery [facility] 04/05/2023 10:00 AM 04/05/2023 11:00 [...] Mouth every day. potassium chloride (Potassium Chloride (Zcp-Lypu-Dwr 10) 10 mEq oral tablet, extended release) 1 Tablets By Mouth every day. primidone (primidone 50 mg Tab) 1 Tablets By Mouth once a day (at bedtime). sertraline (sertraline 25 mg Tab) 1 Tablets By Mouth every day. PATIENT EDUCATION INFORMATION Instructions: [place], [place] [facility] DISCHARGE INSTRUCTIONS TOTAL KNEE [...] until y (more content not included)... Normal [facility] Consent for Procedure/Surger yon 03-31-2023 Consent for Procedure/Surgery [id number]#1.00 TIFF Normal [facility] C Urineon 03-19-2023 Bacteria identified Cx Nom [...] Locations R1: This test was performed at: [facility], [address] [place] [address], [address] , , Normal [facility] Comment on above: Performed By: #### 1 8359320, 1969982 ####[facility] [address] [place] [address] ABO/Rh Retypeon 03-17-2023 ABO/Rh Retype Interp Positive Invalid Interpretation Code [facility] Comment on above: Performed By: #### 1 8471229 ####[facility] [address] [place] [address] Auto Diffon 03-17-2023 Basophils/100 WBC (Bld) 0.1 % Normal 0.0-2.0 [facility] Comment on above: Order Comment: Order Added by Discern Expert. Performed By: #### 2 250380, 0944063, 2417291, 69410916 ####[address] [address] Basophils/Leukocytes Auto (Bld) [Pure # fraction] 0.0 E9/L Normal 0.0-0.2 [facility] Comment on above: Order Comment: Order Added by Discern Expert. Performed By: #### 2 893591, 4641735, 7817211, 09835702 ####[address] [address] Eosinophils/100 WBC (Bld) 0.0 % Normal 0.0-8.0 [facility] Comment on above: Order Comment: Order Added by Discern Expert. Performed By: #### 2 378400, 2520123, 5404272, 36205220 ####[address] [address] Eosinophils/Leukocyt es Auto (Bld) [Pure # fraction] 0.0 E9/L Normal 0.0-0.5 [facility] Comment on above: Order Comment: Order Added by Discern Expert. Performed By: #### 2 070497, 2444897, 6122065, 51644665 ####[address] [address] Lymphocytes/100 WBC (Bld) 29.6 % Normal 14.0-50.0 [facility] Comment on above: Order Comment: Order Added by Discern Expert. Performed By: #### 2 471391, 9679770, 6084712, 37314146 ####[address] [address] Lymphocytes/Leukocyt es Auto (Bld) [Pure # fraction] 1.4 E9/L Normal 1.0-4.0 [facility] Comment on above: Order Comment: Order Added by Discern Expert. Performed By: #### 2 358212, 9905078, 4554718, 98545105 ####[facility] [address] [place] [address] Monocytes/100 WBC (Bld) 10.4 % Normal 4.0-14.0 [facility] Comment on above: Order Comment: Order Added by Discern Expert. Performed By: #### 2 204682, 8656325, 1461255, 17406641 ####[address] [address] Monocytes/Leukocytes Auto (Bld) [Pure # fraction] 0.5 E9/L Normal 0.2-1.0 [facility] Comment on above: Order Comment: Order Added by Discern Expert. Performed By: #### 2 039623, 7745738, 6561071, 02583660 ####[address] [address] Neutrophils/100 WBC (Bld) 59.9 % Normal 36.0-75.0 [facility] Comment on above: Order Comment: Order Added by Discern Expert. Performed By: #### 2 444497, 3171155, 4133129, 57502306 ####[address] [place] [address] Neutrophils/Leukocyt es Auto (Bld) [Pure # fraction] 2.9 E9/L Normal 2.0-7.5 [facility] Comment on above: Order Comment: Order Added by Discern Expert. Performed By: #### 2 472443, 8964561, 4839031, 79654351 ####[address] [place] [address] BLOOD BANKOrdered By: Mckenzie Bosch on 03-17-2023 ABO/Rh Retype Interp Positive Invalid Interpretation Code [facility] BB Subsection BMPon 03-17-2023 Anion gap [Moles/Vol] 10 mmol/L Normal 6-16 [facility] Comment on above: Performed By: #### 2 099400, 5753593, 8236550, 17888324 ####[facility] [address] [place] [address] BUN/Creat Ratio 31 No Units High 10-20 [facility] Comment on above: Performed By: #### 2 848922, 5710405, 5307356, 68937828 ####[facility] [address] [place] [address] Calcium [Mass/Vol] 9.2 mg/dL Normal 8.9-11.1 [facility] Comment on above: Performed By: #### 2 849879, 0314813, 1549538, 02045789 ####[facility] [address] [place] [address] Chloride [Moles/Vol] 106 mmol/L Normal 101-111 [facility] Comment on above: Performed By: #### 2 736167, 9973442, 2512516, 41051657 ####[facility] [address] [place] [address] CO2 [Moles/Vol] 29 mmol/L Normal 21-31 [facility] Comment on above: Performed By: #### 2 712818, 8619426, 8997154, 77500090 ####[facility] [address] [place] [address] Creatinine [Mass/Vol] 0.8 mg/dL Normal 0.5-1.3 [facility] Comment on above: Performed By: #### 2 549763, 3718659, 1736286, 28727349 ####[facility] [address] [place] [address] Glucose [Mass/Vol] 75 mg/dL Normal 55-199 [facility] Comment on above: Performed By: #### 2 974604, 0719092, 9955434, 73711061 ####[facility] [address] [place] [address] Potassium [Moles/Vol] 3.9 mmol/L Normal 3.5-5.3 [facility] Comment on above: Performed By: #### 2 035883, 4079847, 9495702, 65641843 ####[facility] [address] [place] [address] Sodium [Moles/Vol] 141 mmol/L Normal 135-145 [facility] Comment on above: Performed By: #### 2 224083, 6513556, 8895489, 54371490 ####[address] [place] [address] Urea nitrogen [Mass/Vol] 25 mg/dL High 5-21 [facility] Comment on above: Performed By: #### 2 841865, 1547528, 5479130, 11422453 ####[address] [address] CBC w/ Auto Diffon Erythrocyte distribution width (RBC) [Ratio] 13.4 % Normal 10.9-14.2 [facility] Comment on above: Performed By: #### 2 900641, 5417046, 1150986, 76684997 ####[address] [place] [address] Hematocrit (Bld) [Volume fraction] 39.0 % Normal 34.0-46.0 [facility] Comment on above: Performed By: #### 2 343656, 1908769, 2031318, 93005014 ####[address] [place] [address] Hemoglobin (Bld) [Mass/Vol] 13.6 g/dL Normal 12.0-16.0 [facility] Comment on above: Performed By: #### 2 554744, 9613691, 1029833, 57225948 ####[address] [place] [address] MCH (RBC) [Entitic mass] 31.6 pg Normal 27.0-34.0 [facility] Comment on above: Performed By: #### 2 051539, 8929629, 8857902, 56892953 ####[address] [address] MCHC (RBC) [Mass/Vol] 34.8 g/dL Normal 31.4-36.0 [facility] Comment on above: Performed By: #### 2 769145, 0620372, 7541863, 84554043 ####[address] [address] MCV (RBC) [Entitic vol] 90.9 fL Normal 80.0-100.0 [facility] Comment on above: Performed By: #### 2 995635, 2114025, 3542446, 45806182 ####[address] [address] Platelet mean volume (Bld) [Entitic vol] 8.0 fL Normal 6.4-10.8 [facility] Comment on above: Performed By: #### 2 789321, 7137381, 2615953, 30726516 ####[address] [address] Platelets (Bld) [#/Vol] 253.0 E9/L Normal 150.0-500.0 [facility] Comment on above: Performed By: #### 2 856228, 1436138, 9983570, 83223261 ####[address] [address] RBC (Bld) [#/Vol] 4.3 E12/L Normal 4.3-5.9 [facility] Comment on above: Performed By: #### 2 134039, 2939399, 6474194, 86690172 ####[address] [address] WBC corrected for nucl RBC Auto (Bld) [#/Vol] 4.8 E9/L Normal 4.0-11.0 [facility] Comment on above: Performed By: #### 2 854381, 3459455, 4225529, 94807570 ####[address] [place] [address] CHEMISTRYOrdered By: SYSTEM SYSTEM on 03-17-2023 Anion [...] Consent for Treatmenton 02-20 Consent for Treatment [id number]#1.00T IFF Normal [facility] HEMATOLOGYOrdered By: SYSTEM SYSTEM on 03-17-2023 Basophils/100 [...] Ql (Urine sed) 3+ /HPF Abnormal Trace [facility] Comment on above: Performed By: #### 1 9739744, 2745582 ####[facility] [address] [place] [address] Bilirubin Ql (U) Negative Normal Negative [facility] Comment on above: Performed By: #### 1 8409376, 7976357 ####[facility] [address] [place] [address] Clarity (U) SL CLOUDY Invalid Interpretation Code [facility] Comment on above: Performed By: #### 1 4783868, 2235215 ####[facility] [address] [place] [address] Color (U) YELLOW Normal Yellow [facility] Comment on above: Performed By: #### 1 3966720, 9778848 ####[facility] [address] [place] [address] Epithelial cells.squamous LM.HPF (Urine sed) [#/Area] 5-8 Normal 0-2 [facility] Comment on above: Performed By: #### 1 5027134, 3660261 ####[facility] [address] [place] [address] Glucose Test strip (U) [Mass/Vol] Negative Normal Negative [facility] Comment on above: Performed By: #### 1 1982563, 2595150 ####[facility] [address] [place] [address] Hemoglobin Ql (U) Negative Normal Negative [facility] Comment on above: Performed By: #### 1 3971357, 5802595 ####[facility] [address] [place] [address] Ketones (U) [Mass/Vol] Negative Normal Negative [facility] Comment on above: Performed By: #### 1 1772272, 3100813 ####[facility] [address] [place] [address] Wautoma.plasma/Lithi um.RBC (Bld) [Mass ratio] 0-3 Normal 0-3 [facility] Comment on above: Performed By: #### 1 3775777, 8572175 ####[address] [address] Nitrite Ql (U) Positive Abnormal Negative [facility] Comment on above: Performed By: #### 1 4202168, 5286817 ####[address] [address] pH (U) 6.0 [pH] Invalid Interpretation Code 5.0-9.0 [facility] Comment on above: Performed By: #### 1 3812245, 7097815 ####[address] [address] Protein (U) [Mass/Vol] Negative Normal Negative [facility] Comment on above: Performed By: #### 1 4372226, 8858561 ####[address] [address] Specific gravity (U) [Rel density] 1.025 Invalid Interpretation Code 1.005-1.030 [facility] Comment on above: Performed By: #### 1 9666542, 7204330 ####[place] [address] Type of Urine collection method Clean Catch Normal [facility] Comment on above: Performed By: #### 1 1849890, 9783316 ####[address] [address] Urobilinogen Qn (U) 0.2 {Amina'U}/dL Normal 0.0-1.0 [facility] Comment on above: Performed By: #### 1 7292239, 7357664 ####[address] [address] WBC Auto Ql (U) 1+ Abnormal Negative [facility] Comment on above: Performed By: #### 1 1636058, 2404225 ####[address] [address] WBC LM.HPF (Urine sed) [#/Area] 6-15 Abnormal 0-5 [facility] Comment on above: Performed By: #### 1 2705863, 1832451 ####[facility] [address] [place] [address] URINALYSISOrdered By: Gracie Villegas on 03-17-2023 Bacteria [...] AM) Normal Negative [facility] UA Auto SS Wautoma.plasma/Lithi um.RBC (Bld) [Mass ratio] 0-3 /HPF Normal [...] [facility] UA Auto SS Urobilinogen Qn (U) 0.2768627 {Amina'U}/dL Normal 0.0 - 1.0 EU/dL [facility] UA Auto SS WBC Auto Ql (U) 1+ *ABN* (03/17/23 8:49 AM) Invalid Interpretation Code Negative [facility] UA Auto SS WBC LM.HPF (Urine sed) [#/Area] 6-15 /HPF Invalid Interpretation Code 0-5/HPF [facility] UA Auto SS XR Chest 2 Viewson [...] mGy = 0 DAP = 0 Normal [facility] eGFRon 03-17-2023 GFR/1.73 sq M.predicted among non-blacks MDRD (S/P/Bld) [Vol rate/Area] mL/min/{1.73_m2} Normal >=59 [facility] Comment on above: Order Comment: Order added by Discern Expert. Performed By: #### 2 659571, 4368665, 6959587, 24088635 ####[facility] [address] [place] [address] Physician Orderon 02-10-2023 Physician Order [id number]#1.00 TIFF Normal [facility] MG MAMM SCREEN 3D ANA CADon 07-21-2022 MG MAMM SCREEN 3D ANA CAD Patient: ELIZABETH SÁNCHEZ Exam Date: 07/21/2022 : 1965 Gender:F Ordering : DR CASSIE LORENZ M.D. Admission #: [id number] Family : Order #: [id number] CLICK HERE TO VIEW EXAM RADIOLOGY REPORT [...] Treatments None Family Cancers None LOCATION: [facility] BREAST COMPOSITION: Scattered areas fibroglandular density. [...] MD on 07/22/2022 at 09:11 Normal [facility] ECG 12 lead ECGon 02-20-2021 ECG 12 lead ECG [facility] Main [place] [address] [place] [address] Electrocardiograph Report Signed Patient: Elizabeth Sánchez MR#: [id number] : 1965 Acct:[id number] Age/Sex: 55 / F ADM Date: 02/14/21 Loc: Room: 4T5714-0 Type: ADM IN Attending Dr: Giovanni Haider [...] By Hina Lopez MD 1 04/24/20 1324 [facility] Stool Occult Blood (Guaiac)o n 02-17-2021 Stool Occult Blood (Guaiac) Occult Blood Negative for Occult Blood by Guaiac Methodology Reference range = Negative PERFORMED BY: [place] [id number] PATHOLOGIST APRN DANIELLE ANDERSON M.D. [facility] Comment on above: Performed By: #### A BG #### Point of Care testing , Comprehensive Metabolic Pane veronique 02-15-2021 Albumin [Mass/Vol] 2.3 g/dL Low 3.2-5.5 [facility] Comment on above: Performed By: #### H EPATIC, PHOS, MG, HS TROP, CBC, BMP #### [facility] [address] [place] [address] Albumin/Globulin [Mass ratio] 0.9 {ratio} [facility] Comment on above: Performed By: #### H EPATIC, PHOS, MG, HS TROP, CBC, BMP #### [facility] [address] [place] [address] [place] ALP [Catalytic activity/Vol] 66 U/L Normal 32-92 [facility] Comment on above: Performed By: #### H EPATIC, PHOS, MG, HS TROP, CBC, BMP #### [facility] [address] [place] [address] [place] ALT [Catalytic activity/Vol] 52 U/L Normal 10-60 [facility] Comment on above: Performed By: #### H EPATIC, PHOS, MG, HS TROP, CBC, BMP #### [facility] [address] [place] [address] [place] AST [Catalytic activity/Vol] 61 U/L High 10-42 [facility] Comment on above: Performed By: #### H EPATIC, PHOS, MG, HS TROP, CBC, BMP #### [facility] [address] Bilirubin [Mass/Vol] 0.3 mg/dL Normal 0.3-1.2 [facility] Comment on above: Performed By: #### H EPATIC, PHOS, MG, HS TROP, CBC, BMP #### [facility] [address] Calcium [Mass/Vol] 8.4 mg/dL Normal 8.2-10.2 [facility] Comment on above: Performed By: #### H EPATIC, PHOS, MG, HS TROP, CBC, BMP #### [facility] [address] Chloride [Moles/Vol] 106 mmol/L Normal 95-114 [facility] Comment on above: Performed By: #### H EPATIC, PHOS, MG, HS TROP, CBC, BMP #### [facility] [address] [place] [address] CO2 [Moles/Vol] 25.8 mmol/L Normal 22.0-30.0 [facility] Comment on above: Performed By: #### H EPATIC, PHOS, MG, HS TROP, CBC, BMP #### [facility] [address] [place] [address] Creatinine [Mass/Vol] 0.64 mg/dL Normal 0.44-1.03 [facility] Comment on above: Performed By: #### H EPATIC, PHOS, MG, HS TROP, CBC, BMP #### [facility] [address] [place] [address] [place] Creatinine Clr Calc Pharmacy 121.10 [facility] Comment on above: Performed By: #### H EPATIC, PHOS, MG, HS TROP, CBC, BMP #### [facility] [address] [place] [address] Estimated GFR ( Prerna > 60 [facility] Comment on above: Result Comment: GFR estimated reference range: According to KDOQI guidelines, <60 ml/min/1.73m2 is sufficient to diagnose a patient with chronic kidney disease. Performed By: #### H EPATIC, PHOS, MG, HS TROP, CBC, BMP #### [address] Estimated GFR (Non- Am > 60 Normal [facility] Comment on above: Performed By: #### H EPATIC, PHOS, MG, HS TROP, CBC, BMP #### [address] Globulin (S) [Mass/Vol] 2.7 g/dL Normal [facility] Comment on above: Performed By: #### H EPATIC, PHOS, MG, HS TROP, CBC, BMP #### [address] Glucose [Mass/Vol] 116 mg/dL High 70-100 [facility] Comment on above: Result Comment: [facility] Glucose Reference Range is dependent on time and content of last meal. Glucose of more than 200 mg/dL in a nonstressed, ambulatory subject supports the diagnosis of Diabetes Mellitus. ADA recommended reference range Performed By: #### H EPATIC, PHOS, MG, HS TROP, CBC, BMP #### [address] Potassium [Moles/Vol] 4.2 mmol/L Normal 3.5-5.1 [facility] Comment on above: Performed By: #### H EPATIC, PHOS, MG, HS TROP, CBC, BMP #### [address] Protein [Mass/Vol] 5.0 g/dL Low 6.1-7.9 [facility] Comment on above: Performed By: #### H EPATIC, PHOS, MG, HS TROP, CBC, BMP #### [address] Sodium [Moles/Vol] 141 mmol/L Normal 136-146 [facility] Comment on above: Performed By: #### H EPATIC, PHOS, MG, HS TROP, CBC, BMP #### [facility] [address] [place] [address] [place] Urea nitrogen [Mass/Vol] 8 mg/dL Low 9-23 [facility] Comment on above: Performed By: #### H EPATIC, PHOS, MG, HS TROP, CBC, BMP #### [facility] [address] [place] [address] [place] Diff and CBCon 02-15-2021 Erythrocyte distribution width (RBC) [Ratio] 13.4 % Normal 11.9-15.3 [facility] Comment on above: Performed By: #### A BG #### Point of Care testing , Hematocrit (Bld) [Volume fraction] 30.8 % Low 34.0-46.4 [facility] Comment on above: Performed By: #### A BG #### Point of Care testing , Hemoglobin (Bld) [Mass/Vol] 10.3 g/dL Low 11.8-15.4 [facility] Comment on above: Performed By: #### A BG #### Point of Care testing , Lymphocytes/100 WBC (Bld) 41 % Normal 18-42 [facility] Comment on above: Performed By: #### A BG #### Point of Care testing , MCH (RBC) [Entitic mass] 32.2 pg Normal 24.7-34.3 [facility] Comment on above: Performed By: #### A BG #### Point of Care testing , MCV (RBC) [Entitic vol] 96.8 fL Normal 80-100 [facility] Comment on above: Performed By: #### A BG #### Point of Care testing , Mean Corpuscular HGB Conc 33.3 g/dL Normal 32.0-35.0 [facility] Comment on above: Performed By: #### A BG #### Point of Care testing , Metamyelocytes 2 % High 0-0 [facility] Comment on above: Performed By: #### A BG #### Point of Care testing , Monocytes/100 WBC (Bld) 7 % Normal 2-11 [facility] Comment on above: Performed By: #### A BG #### Point of Care testing , Nucleated RBC/100 WBC (Bld) [Ratio] 0.2 % Normal 0-0.5 [facility] Comment on above: Result Comment: PERF ORMED BY: [address] [place] [address] PATHOLOGIST APRN DANIELLE ANDERSON M.D. Performed By: #### A BG #### Point of Care testing , Platelet Estimate Normal Normal Normal [facility] Comment on above: Performed By: #### A BG #### Point of Care testing , Platelet mean volume (Bld) [Entitic vol] 8.0 fL Normal 6.3-10.7 [facility] Comment on above: Performed By: #### A BG #### Point of Care testing , Platelet Morphology Normal Normal Normal [facility] Comment on above: Result Comment: PERF ORMED BY: [facility] [address] [place] [address] PATHOLOGIST APRN DANIELLE ANDERSON M.D. Performed By: #### A BG #### Point of Care testing , Platelets (Bld) [#/Vol] 366 10*3/uL Normal 150-450 [facility] Comment on above: Performed By: #### A BG #### Point of Care testing , RBC (Bld) [#/Vol] 3.18 10*6/uL Low 3.60-5.00 [facility] Comment on above: Performed By: #### A BG #### Point of Care testing , RBC morphology finding Nom (Bld) Normal Normal [facility] Comment on above: Performed By: #### A BG #### Point of Care testing , Segmented neutrophils/100 WBC (Bld) 50 % Normal 50-70 [facility] Comment on above: Performed By: #### A BG #### Point of Care testing , WBC (Bld) [#/Vol] 5.0 10*3/uL Normal 4.5-11.0 [facility] Comment on above: Performed By: #### A BG #### Point of Care testing , Folateon 02-15-2021 Folate 6.3 ng/mL Normal >5.9 [facility] Comment on above: Result Comment: Lizeth te reference range: >5.9 ng/ml The WHO technical consultation on folate and vitamin b12 deficiencies has determined that folate concentrations less than 4 ng/ml are considered deficient. PERFORMED BY: [place] [address] PATHOLOGIST APRN DANIELLE ANDERSON M.D. Performed By: #### A BG #### Point of Care testing , Prealbuminon 02-15-2021 Prealbumin [Mass/Vol] 17.6 mg/dL Low 18.0-38.0 [facility] Comment on above: Performed By: #### H EPATIC, PHOS, MG, HS TROP, CBC, BMP #### [facility] [address] [place] [address] Vitamin B12on 02-15-2021 Cobalamin (Vitamin B12) [Mass/Vol] 348 pg/mL Normal 180-914 [facility] Comment on above: Performed By: #### H EPATIC, PHOS, MG, HS TROP, CBC, BMP #### [facility] [address] [place] [address] Comprehensive Metabolic Pane veronique 02-14-2021 Albumin [Mass/Vol] 2.3 g/dL Low 3.2-5.5 [facility] Comment on above: Performed By: #### H EPATIC, PHOS, MG, HS TROP, CBC, BMP #### [facility] [address] [place] [address] Albumin/Globulin [Mass ratio] 0.7 {ratio} Normal [facility] Comment on above: Performed By: #### H EPATIC, PHOS, MG, HS TROP, CBC, BMP #### [facility] [address] [place] [address] ALP [Catalytic activity/Vol] 65 U/L Normal 32-92 [facility] Comment on above: Performed By: #### H EPATIC, PHOS, MG, HS TROP, CBC, BMP #### [facility] [address] [place] [address] ALT [Catalytic activity/Vol] 58 U/L Normal 10-60 [facility] Comment on above: Performed By: #### H EPATIC, PHOS, MG, HS TROP, CBC, BMP #### [facility] [address] AST [Catalytic activity/Vol] 86 U/L High 10-42 [facility] Comment on above: Performed By: #### H EPATIC, PHOS, MG, HS TROP, CBC, BMP #### [facility] [address] Bilirubin [Mass/Vol] 0.4 mg/dL Normal 0.3-1.2 [facility] Comment on above: Performed By: #### H EPATIC, PHOS, MG, HS TROP, CBC, BMP #### [address] Calcium [Mass/Vol] 8.4 mg/dL Normal 8.2-10.2 [facility] Comment on above: Performed By: #### H EPATIC, PHOS, MG, HS TROP, CBC, BMP #### [address] Chloride [Moles/Vol] 104 mmol/L Normal 95-114 [facility] Comment on above: Performed By: #### H EPATIC, PHOS, MG, HS TROP, CBC, BMP #### [facility] [address] [place] [address] CO2 [Moles/Vol] 26.2 mmol/L Normal 22.0-30.0 [facility] Comment on above: Performed By: #### H EPATIC, PHOS, MG, HS TROP, CBC, BMP #### [facility] [address] Creatinine [Mass/Vol] 0.70 mg/dL Normal 0.44-1.03 [facility] Comment on above: Performed By: #### H EPATIC, PHOS, MG, HS TROP, CBC, BMP #### [facility] [address] [place] [address] [place] Creatinine Clr Calc Pharmacy 110.72 Normal [facility] Comment on above: Result Comment: PERF ORMED BY: [place] [address] PATHOLOGIST APRN DANIELLE ANDERSON M.D. Performed By: #### H EPATIC, PHOS, MG, HS TROP, CBC, BMP #### [address] Estimated GFR ( Prerna > 60 [facility] Comment on above: Result Comment: GFR estimated reference range: According to KDOQI guidelines, <60 ml/min/1.73m2 is sufficient to diagnose a patient with chronic kidney disease. Performed By: #### H EPATIC, PHOS, MG, HS TROP, CBC, BMP #### [address] Estimated GFR (Non- Am > 60 [facility] Comment on above: Performed By: #### H EPATIC, PHOS, MG, HS TROP, CBC, BMP #### [address] Globulin (S) [Mass/Vol] 3.1 g/dL Normal [facility] Comment on above: Performed By: #### H EPATIC, PHOS, MG, HS TROP, CBC, BMP #### [address] Glucose [Mass/Vol] 119 mg/dL High 70-100 [facility] Comment on above: Result Comment: [place] Glucose Reference Range is dependent on time and content of last meal. Glucose of more than 200 mg/dL in a nonstressed, ambulatory subject supports the diagnosis of Diabetes Mellitus. ADA recommended reference range Performed By: #### H EPATIC, PHOS, MG, HS TROP, CBC, BMP #### [address] Potassium [Moles/Vol] 4.0 mmol/L Normal 3.5-5.1 [facility] Comment on above: Performed By: #### H EPATIC, PHOS, MG, HS TROP, CBC, BMP #### [address] Protein [Mass/Vol] 5.4 g/dL Low 6.1-7.9 [facility] Comment on above: Performed By: #### H EPATIC, PHOS, MG, HS TROP, CBC, BMP #### [address] Sodium [Moles/Vol] 140 mmol/L Normal 136-146 [facility] Comment on above: Performed By: #### H EPATIC, PHOS, MG, HS TROP, CBC, BMP #### [address] Urea nitrogen [Mass/Vol] 9 mg/dL Normal 9-23 [facility] Comment on above: Performed By: #### H EPATIC, PHOS, MG, HS TROP, CBC, BMP #### [address] D-Dimer High Sensitivityon 1 04-16-2020 D-Dimer High Sensitivity 464 ng/mL High 0-243 [facility] Comment on above: Result Comment: [...] patients due to co-morbid conditions. PERFORMED BY: [place] [address] PATHOLOGIST APRN DANIELLE ANDERSON M.D. Performed By: #### H EPATIC, PHOS, MG, HS TROP, CBC, BMP #### [address] Diff and CBCon 02-14-2021 Band form neutrophils/100 WBC (Bld) 1 % Normal 0-5 [facility] Comment on above: Performed By: #### H EPATIC, PHOS, MG, HS TROP, CBC, BMP #### [address] Erythrocyte distribution width (RBC) [Ratio] 13.3 % Normal 11.9-15.3 [facility] Comment on above: Performed By: #### H EPATIC, PHOS, MG, HS TROP, CBC, BMP #### [address] Hematocrit (Bld) [Volume fraction] 32.4 % Low 34.0-46.4 [facility] Comment on above: Performed By: #### H EPATIC, PHOS, MG, HS TROP, CBC, BMP #### [address] Hemoglobin (Bld) [Mass/Vol] 10.8 g/dL Low 11.8-15.4 [facility] Comment on above: Performed By: #### H EPATIC, PHOS, MG, HS TROP, CBC, BMP #### [address] Lymphocytes/100 WBC (Bld) 25 % Normal 18-42 [facility] Comment on above: Performed By: #### H EPATIC, PHOS, MG, HS TROP, CBC, BMP #### [address] MCH (RBC) [Entitic mass] 31.7 pg Normal 24.7-34.3 [facility] Comment on above: Performed By: #### H EPATIC, PHOS, MG, HS TROP, CBC, BMP #### [address] MCV (RBC) [Entitic vol] 95.2 fL Normal 80-100 [facility] Comment on above: Performed By: #### H EPATIC, PHOS, MG, HS TROP, CBC, BMP #### [address] Mean Corpuscular HGB Conc 33.3 g/dL Normal 32.0-35.0 [facility] Comment on above: Performed By: #### H EPATIC, PHOS, MG, HS TROP, CBC, BMP #### [facility] [address] [place] [address] [place] Metamyelocytes 1 % High 0-0 [facility] Comment on above: Performed By: #### H EPATIC, PHOS, MG, HS TROP, CBC, BMP #### [facility] [address] [place] [address] [place] Monocytes/100 WBC (Bld) 5 % Normal 2-11 [facility] Comment on above: Performed By: #### H EPATIC, PHOS, MG, HS TROP, CBC, BMP #### [facility] [address] Nucleated RBC/100 WBC (Bld) [Ratio] 0.1 % Normal 0-0.5 [facility] Comment on above: Result Comment: PERF ORMED BY: [place] [address] PATHOLOGIST APRN DANIELLE ANDERSON M.D. Performed By: #### H EPATIC, PHOS, MG, HS TROP, CBC, BMP #### [facility] [address] Platelet Estimate Normal Normal Normal [facility] Comment on above: Performed By: #### H EPATIC, PHOS, MG, HS TROP, CBC, BMP #### [facility] [address] Platelet mean volume (Bld) [Entitic vol] 8.1 fL Normal 6.3-10.7 [facility] Comment on above: Performed By: #### H EPATIC, PHOS, MG, HS TROP, CBC, BMP #### [facility] [address] Platelet Morphology Normal Normal Normal [facility] Comment on above: Result Comment: PERF ORMED BY: [place] [address] PATHOLOGIST APRN DANIELLE ANDERSON M.D. Performed By: #### H EPATIC, PHOS, MG, HS TROP, CBC, BMP #### [facility] [address] [place] [address] Platelets (Bld) [#/Vol] 391 10*3/uL Normal 150-450 [facility] Comment on above: Performed By: #### H EPATIC, PHOS, MG, HS TROP, CBC, BMP #### [address] RBC (Bld) [#/Vol] 3.40 10*6/uL Low 3.60-5.00 [facility] Comment on above: Performed By: #### H EPATIC, PHOS, MG, HS TROP, CBC, BMP #### [address] RBC morphology finding Nom (Bld) Normal Normal [facility] Comment on above: Performed By: #### H EPATIC, PHOS, MG, HS TROP, CBC, BMP #### [address] Segmented neutrophils/100 WBC (Bld) 68 % Normal 50-70 [facility] Comment on above: Performed By: #### H EPATIC, PHOS, MG, HS TROP, CBC, BMP #### [address] WBC (Bld) [#/Vol] 5.8 10*3/uL Normal 4.5-11.0 [facility] Comment on above: Performed By: #### H EPATIC, PHOS, MG, HS TROP, CBC, BMP #### [address] Dipstick and Microscopicon 1 04-16-2020 Appearance (U) Cloudy Critically abnormal Clear [facility] Comment on above: Order Comment: Name Collection Type:: Voided Performed By: #### H EPATIC, PHOS, MG, HS TROP, CBC, BMP #### [address] Bacteria,Urine 1+ High None Seen [facility] Comment on above: Order Comment: Name Collection Type:: Voided Performed By: #### H EPATIC, PHOS, MG, HS TROP, CBC, BMP #### [address] Bilirubin,Urine Negative Normal Negative [facility] Comment on above: Order Comment: Name Collection Type:: Voided Performed By: #### H EPATIC, PHOS, MG, HS TROP, CBC, BMP #### [address] Color (U) Dark Yellow Critically abnormal Yellow [facility] Comment on above: Order Comment: Name Collection Type:: Voided Performed By: #### H EPATIC, PHOS, MG, HS TROP, CBC, BMP #### [address] Glucose Ql (U) Normal Normal Normal [facility] Comment on above: Order Comment: Name Collection Type:: Voided Performed By: #### H EPATIC, PHOS, MG, HS TROP, CBC, BMP #### [address] Hyaline Casts,Urine 9-19 High 0-8 [facility] Comment on above: Order Comment: Name Collection Type:: Voided Result Comment: PERF ORMED BY: [place] [address] PATHOLOGIST APRN DANIELLE ANDERSON M.D. Performed By: #### H EPATIC, PHOS, MG, HS TROP, CBC, BMP #### [address] Ketones Ql (U) 1+ High Negative [facility] Comment on above: Order Comment: Name Collection Type:: Voided Performed By: #### H EPATIC, PHOS, MG, HS TROP, CBC, BMP #### [address] Leukocyte esterase Test strip Ql (U) 1+ High Negative [facility] Comment on above: Order Comment: Name Collection Type:: Voided Performed By: #### H EPATIC, PHOS, MG, HS TROP, CBC, BMP #### [address] Nitrite,Urine Negative Normal Negative [facility] Comment on above: Order Comment: Name Collection Type:: Voided Performed By: #### H EPATIC, PHOS, MG, HS TROP, CBC, BMP #### [address] Occult Blood,Urine Negative Normal Negative [facility] Comment on above: Order Comment: Name Collection Type:: Voided Result Comment: PERF ORMED BY: [place] [address] PATHOLOGIST APRN DANIELLE ANDERSON M.D. Performed By: #### H EPATIC, PHOS, MG, HS TROP, CBC, BMP #### [address] pH (U) 5.5 [pH] Normal 5.0-9.0 [facility] Comment on above: Order Comment: Name Collection Type:: Voided Performed By: #### H EPATIC, PHOS, MG, HS TROP, CBC, BMP #### [address] Protein (U) [Mass/Vol] 30 mg/dL High Negative [facility] Comment on above: Order Comment: Name Collection Type:: Voided Performed By: #### H EPATIC, PHOS, MG, HS TROP, CBC, BMP #### [address] RBC,Urine None Seen Normal 0-4 [facility] Comment on above: Order Comment: Name Collection Type:: Voided Performed By: #### H EPATIC, PHOS, MG, HS TROP, CBC, BMP #### [address] Specificy Webb,Urine 1.034 High 1.001-1.030 [facility] Comment on above: Order Comment: Name Collection Type:: Voided Performed By: #### H EPATIC, PHOS, MG, HS TROP, CBC, BMP #### [address] [address] [place] Squamous Epithelial Cell,Urine 10-19 High 0-2 [facility] Comment on above: Order Comment: Name Collection Type:: Voided Performed By: #### H EPATIC, PHOS, MG, HS TROP, CBC, BMP #### [facility] [address] Urobilinogen,Urine Normal Normal Normal [facility] Comment on above: Order Comment: Name Collection Type:: Voided Performed By: #### H EPATIC, PHOS, MG, HS TROP, CBC, BMP #### [facility] [address] [place] [id number] [facility] WBC,Urine 10-19 High 0-4 [facility] Comment on above: Order Comment: Name Collection Type:: Voided Performed By: #### H EPATIC, PHOS, MG, HS TROP, CBC, BMP #### [facility] [address] [place] [address] Urine Cultureon 02-14-2021 Bacteria identified Cx Nom (U) ORGANISM: Enterococcus faecalis (O:ENTFAC) [place] Count >100,000 Aerobic YUN Charge (PC45) -- [...] RESISTANT TO ALL B-LACTAM DRUGS. PERFORMED BY: [place] [address] PATHOLOGIST APRN DANIELLE ANDERSON M.D. [facility] Comment on above: Performed By: #### H EPATIC, PHOS, MG, HS TROP, CBC, BMP #### [facility] [address] [place] [address] Comprehensive Metabolic Pane veronique 02-13-2021 Albumin [Mass/Vol] 2.2 g/dL Low 3.2-5.5 [facility] Comment on above: Performed By: #### H EPATIC, PHOS, MG, HS TROP, CBC, BMP #### [address] Albumin/Globulin [Mass ratio] 0.7 {ratio} [facility] Comment on above: Performed By: #### H EPATIC, PHOS, MG, HS TROP, CBC, BMP #### [facility] [address] [place] [address] ALP [Catalytic activity/Vol] 62 U/L Normal 32-92 [facility] Comment on above: Performed By: #### H EPATIC, PHOS, MG, HS TROP, CBC, BMP #### [facility] [address] [place] [address] ALT [Catalytic activity/Vol] 57 U/L Normal 10-60 [facility] Comment on above: Performed By: #### H EPATIC, PHOS, MG, HS TROP, CBC, BMP #### [facility] [address] [place] [address] AST [Catalytic activity/Vol] 119 U/L High 10-42 [facility] Comment on above: Performed By: #### H EPATIC, PHOS, MG, HS TROP, CBC, BMP #### [facility] [address] [place] [address] Bilirubin [Mass/Vol] 0.2 mg/dL Low 0.3-1.2 [facility] Comment on above: Performed By: #### H EPATIC, PHOS, MG, HS TROP, CBC, BMP #### [facility] [address] [place] [address] Calcium [Mass/Vol] 8.4 mg/dL Normal 8.2-10.2 [facility] Comment on above: Performed By: #### H EPATIC, PHOS, MG, HS TROP, CBC, BMP #### [facility] [address] [place] [address] Chloride [Moles/Vol] 104 mmol/L Normal 95-114 [facility] Comment on above: Performed By: #### H EPATIC, PHOS, MG, HS TROP, CBC, BMP #### [address] CO2 [Moles/Vol] 25.6 mmol/L Normal 22.0-30.0 [facility] Comment on above: Performed By: #### H EPATIC, PHOS, MG, HS TROP, CBC, BMP #### [address] Creatinine [Mass/Vol] 0.67 mg/dL Normal 0.44-1.03 [facility] Comment on above: Performed By: #### H EPATIC, PHOS, MG, HS TROP, CBC, BMP #### [address] Creatinine Clr Calc Pharmacy 115.74 [facility] Comment on above: Result Comment: PERF ORMED BY: [place] [address] PATHOLOGIST APRN DANIELLE ANDERSON M.D. Performed By: #### H EPATIC, PHOS, MG, HS TROP, CBC, BMP #### [address] Estimated GFR ( Prerna > 60 [facility] Comment on above: Result Comment: GFR estimated reference range: According to KDOQI guidelines, <60 ml/min/1.73m2 is sufficient to diagnose a patient with chronic kidney disease. Performed By: #### H EPATIC, PHOS, MG, HS TROP, CBC, BMP #### [address] Estimated GFR (Non- Am > 60 [facility] Comment on above: Performed By: #### H EPATIC, PHOS, MG, HS TROP, CBC, BMP #### [facility] [address] Globulin (S) [Mass/Vol] 3.1 g/dL Normal [facility] Comment on above: Performed By: #### H EPATIC, PHOS, MG, HS TROP, CBC, BMP #### [address] Glucose [Mass/Vol] 121 mg/dL High 70-100 [facility] Comment on above: Result Comment: [facility] Glucose Reference Range is dependent on time and content of last meal. Glucose of more than 200 mg/dL in a nonstressed, ambulatory subject supports the diagnosis of Diabetes Mellitus. ADA recommended reference range Performed By: #### H EPATIC, PHOS, MG, HS TROP, CBC, BMP #### [address] Potassium [Moles/Vol] 3.6 mmol/L Normal 3.5-5.1 [facility] Comment on above: Performed By: #### H EPATIC, PHOS, MG, HS TROP, CBC, BMP #### [address] Protein [Mass/Vol] 5.3 g/dL Low 6.1-7.9 [facility] Comment on above: Performed By: #### H EPATIC, PHOS, MG, HS TROP, CBC, BMP #### [address] Sodium [Moles/Vol] 139 mmol/L Normal 136-146 [facility] Comment on above: Performed By: #### H EPATIC, PHOS, MG, HS TROP, CBC, BMP #### [place] [address] [place] Urea nitrogen [Mass/Vol] 7 mg/dL Low 9-23 [facility] Comment on above: Performed By: #### H EPATIC, PHOS, MG, HS TROP, CBC, BMP #### [address] D-Dimer High Sensitivityon 1 1-25-2021 D-Dimer High Sensitivity 404 ng/mL High 0-243 [facility] Comment on above: Result Comment: [...] patients due to co-morbid conditions. PERFORMED BY: [place] [id number] PATHOLOGIST APRN DANIELLE ANDERSON M.D. Performed By: #### H EPATIC, PHOS, MG, HS TROP, CBC, BMP #### [address] Diff and CBCon 02-13-2021 Erythrocyte distribution width (RBC) [Ratio] 13.4 % Normal 11.9-15.3 [facility] Comment on above: Performed By: #### H EPATIC, PHOS, MG, HS TROP, CBC, BMP #### [address] Hematocrit (Bld) [Volume fraction] 33.2 % Low 34.0-46.4 [facility] Comment on above: Performed By: #### H EPATIC, PHOS, MG, HS TROP, CBC, BMP #### [address] Hemoglobin (Bld) [Mass/Vol] 11.0 g/dL Low 11.8-15.4 [facility] Comment on above: Performed By: #### H EPATIC, PHOS, MG, HS TROP, CBC, BMP #### [address] Lymphocytes/100 WBC (Bld) 15 % Low 18-42 [facility] Comment on above: Performed By: #### H EPATIC, PHOS, MG, HS TROP, CBC, BMP #### [address] MCH (RBC) [Entitic mass] 31.4 pg Normal 24.7-34.3 [facility] Comment on above: Performed By: #### H EPATIC, PHOS, MG, HS TROP, CBC, BMP #### [address] MCV (RBC) [Entitic vol] 94.6 fL Normal 80-100 [facility] Comment on above: Performed By: #### H EPATIC, PHOS, MG, HS TROP, CBC, BMP #### [address] Mean Corpuscular HGB Conc 33.2 g/dL Normal 32.0-35.0 [facility] Comment on above: Performed By: #### H EPATIC, PHOS, MG, HS TROP, CBC, BMP #### [address] Metamyelocytes 2 % High 0-0 [facility] Comment on above: Performed By: #### H EPATIC, PHOS, MG, HS TROP, CBC, BMP #### [address] Monocytes/100 WBC (Bld) 11 % Normal 2-11 [facility] Comment on above: Performed By: #### H EPATIC, PHOS, MG, HS TROP, CBC, BMP #### [address] Nucleated RBC/100 WBC (Bld) [Ratio] 0.1 % Normal 0-0.5 [facility] Comment on above: Performed By: #### H EPATIC, PHOS, MG, HS TROP, CBC, BMP #### [address] Platelet Estimate Normal Normal Normal [facility] Comment on above: Performed By: #### H EPATIC, PHOS, MG, HS TROP, CBC, BMP #### [address] Platelet mean volume (Bld) [Entitic vol] 7.8 fL Normal 6.3-10.7 [facility] Comment on above: Performed By: #### H EPATIC, PHOS, MG, HS TROP, CBC, BMP #### [address] Platelet Morphology Normal Normal Normal [facility] Comment on above: Result Comment: PERF ORMED BY: [place] [id number] PATHOLOGIST APRN DANIELLE ANDERSON M.D. Performed By: #### H EPATIC, PHOS, MG, HS TROP, CBC, BMP #### [address] Platelets (Bld) [#/Vol] 387 10*3/uL Normal 150-450 [facility] Comment on above: Performed By: #### H EPATIC, PHOS, MG, HS TROP, CBC, BMP #### [address] RBC (Bld) [#/Vol] 3.51 10*6/uL Low 3.60-5.00 [facility] Comment on above: Performed By: #### H EPATIC, PHOS, MG, HS TROP, CBC, BMP #### [address] RBC morphology finding Nom (Bld) Normal Normal [facility] Comment on above: Performed By: #### H EPATIC, PHOS, MG, HS TROP, CBC, BMP #### [address] Segmented neutrophils/100 WBC (Bld) 72 % High 50-70 [facility] Comment on above: Performed By: #### H EPATIC, PHOS, MG, HS TROP, CBC, BMP #### [address] WBC (Bld) [#/Vol] 6.1 10*3/uL Normal 4.5-11.0 [facility] Comment on above: Performed By: #### H EPATIC, PHOS, MG, HS TROP, CBC, BMP #### [facility] [address] [place] [address] Complete Blood Count Auto Di ffon 02-12-2021 Basophils (Bld) [#/Vol] 0.0 10*3/uL Normal 0.0-0.2 [facility] Comment on above: Result Comment: PERF ORMED BY: [place] [id number] PATHOLOGIST APRN DANIELLE ANDERSON M.D. Performed By: #### H EPATIC, PHOS, MG, HS TROP, CBC, BMP #### [address] Basophils/100 WBC (Bld) 0.4 % Normal . [facility] Comment on above: Performed By: #### H EPATIC, PHOS, MG, HS TROP, CBC, BMP #### [address] Eosinophils (Bld) [#/Vol] 0.0 10*3/uL Normal 0.0-0.45 [facility] Comment on above: Performed By: #### H EPATIC, PHOS, MG, HS TROP, CBC, BMP #### [address] Eosinophils/100 WBC (Bld) 0.0 % Normal . [facility] Comment on above: Performed By: #### H EPATIC, PHOS, MG, HS TROP, CBC, BMP #### [address] Erythrocyte distribution width (RBC) [Ratio] 13.4 % Normal 11.9-15.3 [facility] Comment on above: Performed By: #### H EPATIC, PHOS, MG, HS TROP, CBC, BMP #### [address] Hematocrit (Bld) [Volume fraction] 34.1 % Normal 34.0-46.4 [facility] Comment on above: Performed By: #### H EPATIC, PHOS, MG, HS TROP, CBC, BMP #### [address] Hemoglobin (Bld) [Mass/Vol] 11.3 g/dL Low 11.8-15.4 [facility] Comment on above: Performed By: #### H EPATIC, PHOS, MG, HS TROP, CBC, BMP #### [address] Lymphocytes (Bld) [#/Vol] 1.1 10*3/uL Normal 1.00-4.8 [facility] Comment on above: Performed By: #### H EPATIC, PHOS, MG, HS TROP, CBC, BMP #### [address] Lymphocytes/100 WBC (Bld) 24.7 % Normal . [facility] Comment on above: Performed By: #### H EPATIC, PHOS, MG, HS TROP, CBC, BMP #### [address] MCH (RBC) [Entitic mass] 31.6 pg Normal 24.7-34.3 [facility] Comment on above: Performed By: #### H EPATIC, PHOS, MG, HS TROP, CBC, BMP #### [address] MCV (RBC) [Entitic vol] 95.8 fL Normal 80-100 [facility] Comment on above: Performed By: #### H EPATIC, PHOS, MG, HS TROP, CBC, BMP #### [address] Mean Corpuscular HGB Conc 33.0 g/dL Normal 32.0-35.0 [facility] Comment on above: Performed By: #### H EPATIC, PHOS, MG, HS TROP, CBC, BMP #### [address] Monocytes (Bld) [#/Vol] 0.6 10*3/uL Normal 0.0-0.8 [facility] Comment on above: Performed By: #### H EPATIC, PHOS, MG, HS TROP, CBC, BMP #### [facility] [address] [place] [address] [place] Monocytes/100 WBC (Bld) 13.1 % Normal . [facility] Comment on above: Performed By: #### H EPATIC, PHOS, MG, HS TROP, CBC, BMP #### [facility] [address] [place] [address] [place] Neutrophils (Bld) [#/Vol] 2.8 10*3/uL Normal 1.8-7.7 [facility] Comment on above: Performed By: #### H EPATIC, PHOS, MG, HS TROP, CBC, BMP #### [address] Neutrophils/100 WBC (Bld) 61.8 % Normal . [facility] Comment on above: Performed By: #### H EPATIC, PHOS, MG, HS TROP, CBC, BMP #### [place] [address] [place] Nucleated RBC/100 WBC (Bld) [Ratio] 0.1 % Normal 0-0.5 [facility] Comment on above: Performed By: #### H EPATIC, PHOS, MG, HS TROP, CBC, BMP #### [address] Platelet mean volume (Bld) [Entitic vol] 8.3 fL Normal 6.3-10.7 [facility] Comment on above: Performed By: #### H EPATIC, PHOS, MG, HS TROP, CBC, BMP #### [facility] [address] [place] [address] [place] Platelets (Bld) [#/Vol] 304 10*3/uL Normal 150-450 [facility] Comment on above: Performed By: #### H EPATIC, PHOS, MG, HS TROP, CBC, BMP #### [facility] [address] [place] [address] [place] RBC (Bld) [#/Vol] 3.56 10*6/uL Low 3.60-5.00 [facility] Comment on above: Performed By: #### H EPATIC, PHOS, MG, HS TROP, CBC, BMP #### [address] WBC (Bld) [#/Vol] 4.6 10*3/uL Normal 4.5-11.0 [facility] Comment on above: Performed By: #### H EPATIC, PHOS, MG, HS TROP, CBC, BMP #### [address] Comprehensive Metabolic Pane veronique 02-12-2021 Albumin [Mass/Vol] 2.2 g/dL Low 3.2-5.5 [facility] Comment on above: Performed By: #### H EPATIC, PHOS, MG, HS TROP, CBC, BMP #### [address] Albumin/Globulin [Mass ratio] 0.7 {ratio} Normal [facility] Comment on above: Performed By: #### H EPATIC, PHOS, MG, HS TROP, CBC, BMP #### [address] ALP [Catalytic activity/Vol] 55 U/L Normal 32-92 [facility] Comment on above: Performed By: #### H EPATIC, PHOS, MG, HS TROP, CBC, BMP #### [facility] [address] [place] [address] ALT [Catalytic activity/Vol] 35 U/L Normal 10-60 [facility] Comment on above: Performed By: #### H EPATIC, PHOS, MG, HS TROP, CBC, BMP #### [facility] [address] [place] [address] AST [Catalytic activity/Vol] 60 U/L High 10-42 [facility] Comment on above: Performed By: #### H EPATIC, PHOS, MG, HS TROP, CBC, BMP #### [address] Bilirubin [Mass/Vol] 0.4 mg/dL Normal 0.3-1.2 [facility] Comment on above: Performed By: #### H EPATIC, PHOS, MG, HS TROP, CBC, BMP #### [facility] [address] Calcium [Mass/Vol] 8.3 mg/dL Normal 8.2-10.2 [facility] Comment on above: Performed By: #### H EPATIC, PHOS, MG, HS TROP, CBC, BMP #### [facility] [address] Chloride [Moles/Vol] 104 mmol/L Normal 95-114 [facility] Comment on above: Performed By: #### H EPATIC, PHOS, MG, HS TROP, CBC, BMP #### [address] CO2 [Moles/Vol] 23.6 mmol/L Normal 22.0-30.0 [facility] Comment on above: Performed By: #### H EPATIC, PHOS, MG, HS TROP, CBC, BMP #### [facility] [address] [place] [address] Creatinine [Mass/Vol] 0.69 mg/dL Normal 0.44-1.03 [facility] Comment on above: Performed By: #### H EPATIC, PHOS, MG, HS TROP, CBC, BMP #### [facility] [address] [place] [address] [place] Creatinine Clr Calc Pharmacy 112.39 [facility] Comment on above: Result Comment: PERF ORMED BY: [place] [id number] PATHOLOGIST APRN DANIELLE ANDERSON M.D. Performed By: #### H EPATIC, PHOS, MG, HS TROP, CBC, BMP #### [facility] [address] [place] [address] Estimated GFR ( Prerna > 60 Normal [facility] Comment on above: Result Comment: GFR estimated reference range: According to KDOQI guidelines, <60 ml/min/1.73m2 is sufficient to diagnose a patient with chronic kidney disease. Performed By: #### H EPATIC, PHOS, MG, HS TROP, CBC, BMP #### [address] Estimated GFR (Non- Am > 60 Normal [facility] Comment on above: Performed By: #### H EPATIC, PHOS, MG, HS TROP, CBC, BMP #### [address] Globulin (S) [Mass/Vol] 3.2 g/dL Normal [facility] Comment on above: Performed By: #### H EPATIC, PHOS, MG, HS TROP, CBC, BMP #### [address] Glucose [Mass/Vol] 113 mg/dL High 70-100 [facility] Comment on above: Result Comment: [facility] Glucose Reference Range is dependent on time and content of last meal. Glucose of more than 200 mg/dL in a nonstressed, ambulatory subject supports the diagnosis of Diabetes Mellitus. ADA recommended reference range Performed By: #### H EPATIC, PHOS, MG, HS TROP, CBC, BMP #### [address] Potassium [Moles/Vol] 3.6 mmol/L Normal 3.5-5.1 [facility] Comment on above: Performed By: #### H EPATIC, PHOS, MG, HS TROP, CBC, BMP #### [address] Protein [Mass/Vol] 5.4 g/dL Low 6.1-7.9 [facility] Comment on above: Performed By: #### H EPATIC, PHOS, MG, HS TROP, CBC, BMP #### [address] Sodium [Moles/Vol] 138 mmol/L Normal 136-146 [facility] Comment on above: Performed By: #### H EPATIC, PHOS, MG, HS TROP, CBC, BMP #### [facility] [address] Urea nitrogen [Mass/Vol] 11 mg/dL Normal 12-12 [facility] Comment on above: Performed By: #### H EPATIC, PHOS, MG, HS TROP, CBC, BMP #### [facility] [address] [place] [address] D-Dimer High Sensitivityon 1 04-14-2020 D-Dimer High Sensitivity 706 ng/mL High 0-243 [facility] Comment on above: Result Comment: [...] patients due to co-morbid conditions. PERFORMED BY: [place] [address] PATHOLOGIST APRN DANIELLE ANDERSON M.D. Performed By: #### H EPATIC, PHOS, MG, HS TROP, CBC, BMP #### [address] Complete Blood Count Auto Di ffon 02-11-2021 Basophils (Bld) [#/Vol] 0.0 10*3/uL Normal 0.0-0.2 [facility] Comment on above: Result Comment: PERF ORMED BY: [place] [address] PATHOLOGIST APRN DANIELLE ANDERSON M.D. Performed By: #### H EPATIC, PHOS, MG, HS TROP, CBC, BMP #### [address] Basophils/100 WBC (Bld) 0.1 % Normal . [facility] Comment on above: Performed By: #### H EPATIC, PHOS, MG, HS TROP, CBC, BMP #### [address] Eosinophils (Bld) [#/Vol] 0.0 10*3/uL Normal 0.0-0.45 [facility] Comment on above: Performed By: #### H EPATIC, PHOS, MG, HS TROP, CBC, BMP #### [address] Eosinophils/100 WBC (Bld) 0.0 % Normal . [facility] Comment on above: Performed By: #### H EPATIC, PHOS, MG, HS TROP, CBC, BMP #### [address] Erythrocyte distribution width (RBC) [Ratio] 13.2 % Normal 11.9-15.3 [facility] Comment on above: Performed By: #### H EPATIC, PHOS, MG, HS TROP, CBC, BMP #### [address] Hematocrit (Bld) [Volume fraction] 31.9 % Low 34.0-46.4 [facility] Comment on above: Performed By: #### H EPATIC, PHOS, MG, HS TROP, CBC, BMP #### [address] Hemoglobin (Bld) [Mass/Vol] 10.8 g/dL Low 11.8-15.4 [facility] Comment on above: Performed By: #### H EPATIC, PHOS, MG, HS TROP, CBC, BMP #### [address] Lymphocytes (Bld) [#/Vol] 0.7 10*3/uL Low 1.00-4.8 [facility] Comment on above: Performed By: #### H EPATIC, PHOS, MG, HS TROP, CBC, BMP #### [address] Lymphocytes/100 WBC (Bld) 17.2 % Normal . [facility] Comment on above: Performed By: #### H EPATIC, PHOS, MG, HS TROP, CBC, BMP #### [address] MCH (RBC) [Entitic mass] 32.1 pg Normal 24.7-34.3 [facility] Comment on above: Performed By: #### H EPATIC, PHOS, MG, HS TROP, CBC, BMP #### [address] MCV (RBC) [Entitic vol] 94.4 fL Normal 80-100 [facility] Comment on above: Performed By: #### H EPATIC, PHOS, MG, HS TROP, CBC, BMP #### [address] Mean Corpuscular HGB Conc 34.0 g/dL Normal 32.0-35.0 [facility] Comment on above: Performed By: #### H EPATIC, PHOS, MG, HS TROP, CBC, BMP #### [address] Monocytes (Bld) [#/Vol] 0.5 10*3/uL Normal 0.0-0.8 [facility] Comment on above: Performed By: #### H EPATIC, PHOS, MG, HS TROP, CBC, BMP #### [address] Monocytes/100 WBC (Bld) 11.8 % Normal . [facility] Comment on above: Performed By: #### H EPATIC, PHOS, MG, HS TROP, CBC, BMP #### [address] Neutrophils (Bld) [#/Vol] 2.9 10*3/uL Normal 1.8-7.7 [facility] Comment on above: Performed By: #### H EPATIC, PHOS, MG, HS TROP, CBC, BMP #### [address] Neutrophils/100 WBC (Bld) 70.9 % Normal . [facility] Comment on above: Performed By: #### H EPATIC, PHOS, MG, HS TROP, CBC, BMP #### [address] Nucleated RBC/100 WBC (Bld) [Ratio] 0.0 % Normal 0-0.5 [facility] Comment on above: Performed By: #### H EPATIC, PHOS, MG, HS TROP, CBC, BMP #### [address] Platelet mean volume (Bld) [Entitic vol] 7.9 fL Normal 6.3-10.7 [facility] Comment on above: Performed By: #### H EPATIC, PHOS, MG, HS TROP, CBC, BMP #### [address] Platelets (Bld) [#/Vol] 256 10*3/uL Normal 150-450 [facility] Comment on above: Performed By: #### H EPATIC, PHOS, MG, HS TROP, CBC, BMP #### [address] RBC (Bld) [#/Vol] 3.38 10*6/uL Low 3.60-5.00 [facility] Comment on above: Performed By: #### H EPATIC, PHOS, MG, HS TROP, CBC, BMP #### [address] WBC (Bld) [#/Vol] 4.1 10*3/uL Low 4.5-11.0 [facility] Comment on above: Performed By: #### H EPATIC, PHOS, MG, HS TROP, CBC, BMP #### [address] Comprehensive Metabolic Pane veronique 02-11-2021 Albumin [Mass/Vol] 2.1 g/dL Low 3.2-5.5 [facility] Comment on above: Performed By: #### H EPATIC, PHOS, MG, HS TROP, CBC, BMP #### [address] [place] [address] [place] Albumin/Globulin [Mass ratio] 0.6 {ratio} Normal [facility] Comment on above: Performed By: #### H EPATIC, PHOS, MG, HS TROP, CBC, BMP #### [facility] [address] ALP [Catalytic activity/Vol] 57 U/L Normal 32-92 [facility] Comment on above: Performed By: #### H EPATIC, PHOS, MG, HS TROP, CBC, BMP #### [address] ALT [Catalytic activity/Vol] 30 U/L Normal 10-60 [facility] Comment on above: Performed By: #### H EPATIC, PHOS, MG, HS TROP, CBC, BMP #### [address] AST [Catalytic activity/Vol] 38 U/L Normal 10-42 [facility] Comment on above: Performed By: #### H EPATIC, PHOS, MG, HS TROP, CBC, BMP #### [facility] [address] [place] [address] Bilirubin [Mass/Vol] 0.2 mg/dL Low 0.3-1.2 [facility] Comment on above: Performed By: #### H EPATIC, PHOS, MG, HS TROP, CBC, BMP #### [facility] [address] [place] [address] Calcium [Mass/Vol] 8.3 mg/dL Normal 8.2-10.2 [facility] Comment on above: Performed By: #### H EPATIC, PHOS, MG, HS TROP, CBC, BMP #### [facility] [address] [place] [address] [place] Chloride [Moles/Vol] 103 mmol/L Normal 95-114 [facility] Comment on above: Performed By: #### H EPATIC, PHOS, MG, HS TROP, CBC, BMP #### [facility] [address] [place] [address] [place] CO2 [Moles/Vol] 24.1 mmol/L Normal 22.0-30.0 [facility] Comment on above: Performed By: #### H EPATIC, PHOS, MG, HS TROP, CBC, BMP #### [address] Creatinine [Mass/Vol] 0.71 mg/dL Normal 0.44-1.03 [facility] Comment on above: Performed By: #### H EPATIC, PHOS, MG, HS TROP, CBC, BMP #### [address] Creatinine Clr Calc Pharmacy 110.27 [facility] Comment on above: Result Comment: PERF ORMED BY: [place] [address] PATHOLOGIST APRN DANIELLE ANDERSON M.D. Performed By: #### H EPATIC, PHOS, MG, HS TROP, CBC, BMP #### [address] Estimated GFR ( Prerna > 60 [facility] Comment on above: Result Comment: GFR estimated reference range: According to KDOQI guidelines, <60 ml/min/1.73m2 is sufficient to diagnose a patient with chronic kidney disease. Performed By: #### H EPATIC, PHOS, MG, HS TROP, CBC, BMP #### [address] Estimated GFR (Non- Am > 60 [facility] Comment on above: Performed By: #### H EPATIC, PHOS, MG, HS TROP, CBC, BMP #### [address] Globulin (S) [Mass/Vol] 3.4 g/dL [facility] Comment on above: Performed By: #### H EPATIC, PHOS, MG, HS TROP, CBC, BMP #### [address] Glucose [Mass/Vol] 106 mg/dL High 70-100 [facility] Comment on above: Result Comment: [place] Glucose Reference Range is dependent on time and content of last meal. Glucose of more than 200 mg/dL in a nonstressed, ambulatory subject supports the diagnosis of Diabetes Mellitus. ADA recommended reference range Performed By: #### H EPATIC, PHOS, MG, HS TROP, CBC, BMP #### [facility] [address] Potassium [Moles/Vol] 3.6 mmol/L Normal 3.5-5.1 [facility] Comment on above: Performed By: #### H EPATIC, PHOS, MG, HS TROP, CBC, BMP #### [facility] [address] Protein [Mass/Vol] 5.5 g/dL Low 6.1-7.9 [facility] Comment on above: Performed By: #### H EPATIC, PHOS, MG, HS TROP, CBC, BMP #### [address] Sodium [Moles/Vol] 138 mmol/L Normal 136-146 [facility] Comment on above: Performed By: #### H EPATIC, PHOS, MG, HS TROP, CBC, BMP #### [address] Urea nitrogen [Mass/Vol] 8 mg/dL Low 9-23 [facility] Comment on above: Performed By: #### H EPATIC, PHOS, MG, HS TROP, CBC, BMP #### [address] D-Dimer High Sensitivityon 1 04-13-2020 D-Dimer High Sensitivity 486 ng/mL High 0-243 [facility] Comment on above: Result Comment: [...] patients due to co-morbid conditions. PERFORMED BY: [place] [address] PATHOLOGIST APRN DANIELLE ANDERSON M.D. Performed By: #### H EPATIC, PHOS, MG, HS TROP, CBC, BMP #### [address] Complete Blood Count Auto Di ffon 02-10-2021 Basophils (Bld) [#/Vol] 0.0 10*3/uL Normal 0.0-0.2 [facility] Comment on above: Result Comment: PERF ORMED BY: [place] [address] PATHOLOGIST APRN DANIELLE ANDERSON M.D. Performed By: #### H EPATIC, PHOS, MG, HS TROP, CBC, BMP #### [address] Basophils/100 WBC (Bld) 0.1 % Normal . [facility] Comment on above: Performed By: #### H EPATIC, PHOS, MG, HS TROP, CBC, BMP #### [address] Eosinophils (Bld) [#/Vol] 0.0 10*3/uL Normal 0.0-0.45 [facility] Comment on above: Performed By: #### H EPATIC, PHOS, MG, HS TROP, CBC, BMP #### [address] Eosinophils/100 WBC (Bld) 0.0 % Normal . [facility] Comment on above: Performed By: #### H EPATIC, PHOS, MG, HS TROP, CBC, BMP #### [address] Erythrocyte distribution width (RBC) [Ratio] 13.3 % Normal 11.9-15.3 [facility] Comment on above: Performed By: #### H EPATIC, PHOS, MG, HS TROP, CBC, BMP #### [address] Hematocrit (Bld) [Volume fraction] 31.7 % Low 34.0-46.4 [facility] Comment on above: Performed By: #### H EPATIC, PHOS, MG, HS TROP, CBC, BMP #### [address] Hemoglobin (Bld) [Mass/Vol] 10.7 g/dL Low 11.8-15.4 [facility] Comment on above: Performed By: #### H EPATIC, PHOS, MG, HS TROP, CBC, BMP #### [address] Lymphocytes (Bld) [#/Vol] 0.5 10*3/uL Low 1.00-4.8 [facility] Comment on above: Performed By: #### H EPATIC, PHOS, MG, HS TROP, CBC, BMP #### [address] Lymphocytes/100 WBC (Bld) 10.0 % Normal . [facility] Comment on above: Performed By: #### H EPATIC, PHOS, MG, HS TROP, CBC, BMP #### [address] MCH (RBC) [Entitic mass] 32.1 pg Normal 24.7-34.3 [facility] Comment on above: Performed By: #### H EPATIC, PHOS, MG, HS TROP, CBC, BMP #### [address] MCV (RBC) [Entitic vol] 95.0 fL Normal 80-100 [facility] Comment on above: Performed By: #### H EPATIC, PHOS, MG, HS TROP, CBC, BMP #### [address] Mean Corpuscular HGB Conc 33.8 g/dL Normal 32.0-35.0 [facility] Comment on above: Performed By: #### H EPATIC, PHOS, MG, HS TROP, CBC, BMP #### [facility] [address] [place] [address] [place] Monocytes (Bld) [#/Vol] 0.6 10*3/uL Normal 0.0-0.8 [facility] Comment on above: Performed By: #### H EPATIC, PHOS, MG, HS TROP, CBC, BMP #### [facility] [address] [place] [address] [place] Monocytes/100 WBC (Bld) 11.2 % Normal . [facility] Comment on above: Performed By: #### H EPATIC, PHOS, MG, HS TROP, CBC, BMP #### [address] Neutrophils (Bld) [#/Vol] 4.3 10*3/uL Normal 1.8-7.7 [facility] Comment on above: Performed By: #### H EPATIC, PHOS, MG, HS TROP, CBC, BMP #### [address] Neutrophils/100 WBC (Bld) 78.7 % Normal . [facility] Comment on above: Performed By: #### H EPATIC, PHOS, MG, HS TROP, CBC, BMP #### [place] [address] [place] Nucleated RBC/100 WBC (Bld) [Ratio] 0.1 % Normal 0-0.5 [facility] Comment on above: Performed By: #### H EPATIC, PHOS, MG, HS TROP, CBC, BMP #### [place] [address] [place] Platelet mean volume (Bld) [Entitic vol] 8.7 fL Normal 6.3-10.7 [facility] Comment on above: Performed By: #### H EPATIC, PHOS, MG, HS TROP, CBC, BMP #### [place] [address] [place] Platelets (Bld) [#/Vol] 220 10*3/uL Normal 150-450 [facility] Comment on above: Performed By: #### H EPATIC, PHOS, MG, HS TROP, CBC, BMP #### [facility] [address] RBC (Bld) [#/Vol] 3.34 10*6/uL Low 3.60-5.00 [facility] Comment on above: Performed By: #### H EPATIC, PHOS, MG, HS TROP, CBC, BMP #### [facility] [address] WBC (Bld) [#/Vol] 5.4 10*3/uL Normal 4.5-11.0 [facility] Comment on above: Performed By: #### H EPATIC, PHOS, MG, HS TROP, CBC, BMP #### [address] Comprehensive Metabolic Pane veronique 02-10-2021 Albumin [Mass/Vol] 2.1 g/dL Low 3.2-5.5 [facility] Comment on above: Performed By: #### H EPATIC, PHOS, MG, HS TROP, CBC, BMP #### [facility] [address] [place] [address] Albumin/Globulin [Mass ratio] 0.6 {ratio} Normal [facility] Comment on above: Performed By: #### H EPATIC, PHOS, MG, HS TROP, CBC, BMP #### [facility] [address] [place] [address] ALP [Catalytic activity/Vol] 53 U/L Normal 32-92 [facility] Comment on above: Performed By: #### H EPATIC, PHOS, MG, HS TROP, CBC, BMP #### [facility] [address] [place] [address] ALT [Catalytic activity/Vol] 29 U/L Normal 10-60 [facility] Comment on above: Performed By: #### H EPATIC, PHOS, MG, HS TROP, CBC, BMP #### [facility] [address] [place] [address] AST [Catalytic activity/Vol] 44 U/L High 10-42 [facility] Comment on above: Performed By: #### H EPATIC, PHOS, MG, HS TROP, CBC, BMP #### [facility] [address] Bilirubin [Mass/Vol] 0.2 mg/dL Low 0.3-1.2 [facility] Comment on above: Performed By: #### H EPATIC, PHOS, MG, HS TROP, CBC, BMP #### [facility] [address] Calcium [Mass/Vol] 8.0 mg/dL Low 8.2-10.2 [facility] Comment on above: Performed By: #### H EPATIC, PHOS, MG, HS TROP, CBC, BMP #### [facility] [address] Chloride [Moles/Vol] 101 mmol/L Normal 95-114 [facility] Comment on above: Performed By: #### H EPATIC, PHOS, MG, HS TROP, CBC, BMP #### [facility] [address] CO2 [Moles/Vol] 24.4 mmol/L Normal 22.0-30.0 [facility] Comment on above: Performed By: #### H EPATIC, PHOS, MG, HS TROP, CBC, BMP #### [facility] [address] Creatinine [Mass/Vol] 0.66 mg/dL Normal 0.44-1.03 [facility] Comment on above: Performed By: #### H EPATIC, PHOS, MG, HS TROP, CBC, BMP #### [facility] [address] Creatinine Clr Calc Pharmacy 119.04 Normal [facility] Comment on above: Result Comment: PERF ORMED BY: [place] [id number] PATHOLOGIST APRN DANIELLE ANDERSON M.D. Performed By: #### H EPATIC, PHOS, MG, HS TROP, CBC, BMP #### [facility] [address] Estimated GFR ( Prerna > 60 Normal [facility] Comment on above: Result Comment: GFR estimated reference range: According to KDOQI guidelines, <60 ml/min/1.73m2 is sufficient to diagnose a patient with chronic kidney disease. Performed By: #### H EPATIC, PHOS, MG, HS TROP, CBC, BMP #### [facility] [address] Estimated GFR (Non- Am > 60 Normal [facility] Comment on above: Performed By: #### H EPATIC, PHOS, MG, HS TROP, CBC, BMP #### [address] Globulin (S) [Mass/Vol] 3.3 g/dL Normal [facility] Comment on above: Performed By: #### H EPATIC, PHOS, MG, HS TROP, CBC, BMP #### [address] Glucose [Mass/Vol] 110 mg/dL High 70-100 [facility] Comment on above: Result Comment: [facility] Glucose Reference Range is dependent on time and content of last meal. Glucose of more than 200 mg/dL in a nonstressed, ambulatory subject supports the diagnosis of Diabetes Mellitus. ADA recommended reference range Performed By: #### H EPATIC, PHOS, MG, HS TROP, CBC, BMP #### [address] Potassium [Moles/Vol] 3.7 mmol/L Normal 3.5-5.1 [facility] Comment on above: Performed By: #### H EPATIC, PHOS, MG, HS TROP, CBC, BMP #### [address] Protein [Mass/Vol] 5.4 g/dL Low 6.1-7.9 [facility] Comment on above: Performed By: #### H EPATIC, PHOS, MG, HS TROP, CBC, BMP #### [address] [address] [place] Sodium [Moles/Vol] 135 mmol/L Low 136-146 [facility] Comment on above: Performed By: #### H EPATIC, PHOS, MG, HS TROP, CBC, BMP #### [facility] [address] Urea nitrogen [Mass/Vol] 12 mg/dL Normal 9-23 [facility] Comment on above: Performed By: #### H EPATIC, PHOS, MG, HS TROP, CBC, BMP #### [facility] [address] [place] [address] D-Dimer High Sensitivityon 1 04-12-2020 D-Dimer High Sensitivity 423 ng/mL High 0-243 [facility] Comment on above: Result Comment: [...] patients due to co-morbid conditions. PERFORMED BY: [place] [id number] PATHOLOGIST APRN DANIELLE ANDERSON M.D. Performed By: #### H EPATIC, PHOS, MG, HS TROP, CBC, BMP #### [facility] [address] [place], [place] [id number] [facility] Complete Blood Count Auto Di ffon 02-09-2021 Basophils (Bld) [#/Vol] 0.0 10*3/uL Normal 0.0-0.2 [facility] Comment on above: Result Comment: PERF ORMED BY: [place] [id number] PATHOLOGIST APRN DANIELLE ANDERSON M.D. Performed By: #### H EPATIC, PHOS, MG, HS TROP, CBC, BMP #### [address] Basophils/100 WBC (Bld) 0.1 % Normal . [facility] Comment on above: Performed By: #### H EPATIC, PHOS, MG, HS TROP, CBC, BMP #### [address] Eosinophils (Bld) [#/Vol] 0.0 10*3/uL Normal 0.0-0.45 [facility] Comment on above: Performed By: #### H EPATIC, PHOS, MG, HS TROP, CBC, BMP #### [address] Eosinophils/100 WBC (Bld) 0.0 % Normal . [facility] Comment on above: Performed By: #### H EPATIC, PHOS, MG, HS TROP, CBC, BMP #### [address] Erythrocyte distribution width (RBC) [Ratio] 13.1 % Normal 11.9-15.3 [facility] Comment on above: Performed By: #### H EPATIC, PHOS, MG, HS TROP, CBC, BMP #### [address] Hematocrit (Bld) [Volume fraction] 33.3 % Low 34.0-46.4 [facility] Comment on above: Performed By: #### H EPATIC, PHOS, MG, HS TROP, CBC, BMP #### [address] Hemoglobin (Bld) [Mass/Vol] 11.3 g/dL Low 11.8-15.4 [facility] Comment on above: Performed By: #### H EPATIC, PHOS, MG, HS TROP, CBC, BMP #### [address] Lymphocytes (Bld) [#/Vol] 0.5 10*3/uL Low 1.00-4.8 [facility] Comment on above: Performed By: #### H EPATIC, PHOS, MG, HS TROP, CBC, BMP #### [address] Lymphocytes/100 WBC (Bld) 8.1 % Normal . [facility] Comment on above: Performed By: #### H EPATIC, PHOS, MG, HS TROP, CBC, BMP #### [address] MCH (RBC) [Entitic mass] 32.1 pg Normal 24.7-34.3 [facility] Comment on above: Performed By: #### H EPATIC, PHOS, MG, HS TROP, CBC, BMP #### [address] MCV (RBC) [Entitic vol] 94.4 fL Normal 80-100 [facility] Comment on above: Performed By: #### H EPATIC, PHOS, MG, HS TROP, CBC, BMP #### [address] Mean Corpuscular HGB Conc 34.0 g/dL Normal 32.0-35.0 [facility] Comment on above: Performed By: #### H EPATIC, PHOS, MG, HS TROP, CBC, BMP #### [address] Monocytes (Bld) [#/Vol] 0.7 10*3/uL Normal 0.0-0.8 [facility] Comment on above: Performed By: #### H EPATIC, PHOS, MG, HS TROP, CBC, BMP #### [address] Monocytes/100 WBC (Bld) 11.2 % Normal . [facility] Comment on above: Performed By: #### H EPATIC, PHOS, MG, HS TROP, CBC, BMP #### [address] Neutrophils (Bld) [#/Vol] 5.0 10*3/uL Normal 1.8-7.7 [facility] Comment on above: Performed By: #### H EPATIC, PHOS, MG, HS TROP, CBC, BMP #### [address] Neutrophils/100 WBC (Bld) 80.6 % Normal . [facility] Comment on above: Performed By: #### H EPATIC, PHOS, MG, HS TROP, CBC, BMP #### [address] Nucleated RBC/100 WBC (Bld) [Ratio] 0.2 % Normal 0-0.5 [facility] Comment on above: Performed By: #### H EPATIC, PHOS, MG, HS TROP, CBC, BMP #### [address] Platelet mean volume (Bld) [Entitic vol] 8.9 fL Normal 6.3-10.7 [facility] Comment on above: Performed By: #### H EPATIC, PHOS, MG, HS TROP, CBC, BMP #### [address] Platelets (Bld) [#/Vol] 219 10*3/uL Normal 150-450 [facility] Comment on above: Performed By: #### H EPATIC, PHOS, MG, HS TROP, CBC, BMP #### [address] RBC (Bld) [#/Vol] 3.53 10*6/uL Low 3.60-5.00 [facility] Comment on above: Performed By: #### H EPATIC, PHOS, MG, HS TROP, CBC, BMP #### [address] WBC (Bld) [#/Vol] 6.3 10*3/uL Normal 4.5-11.0 [facility] Comment on above: Performed By: #### H EPATIC, PHOS, MG, HS TROP, CBC, BMP #### [address] Comprehensive Metabolic Pane veronique 02-09-2021 Albumin [Mass/Vol] 2.1 g/dL Low 3.2-5.5 [facility] Comment on above: Performed By: #### H EPATIC, PHOS, MG, HS TROP, CBC, BMP #### [facility] [address] Albumin/Globulin [Mass ratio] 0.6 {ratio} Normal [facility] Comment on above: Performed By: #### H EPATIC, PHOS, MG, HS TROP, CBC, BMP #### [address] ALP [Catalytic activity/Vol] 58 U/L Normal 32-92 [facility] Comment on above: Performed By: #### H EPATIC, PHOS, MG, HS TROP, CBC, BMP #### [address] ALT [Catalytic activity/Vol] 26 U/L Normal 10-60 [facility] Comment on above: Performed By: #### H EPATIC, PHOS, MG, HS TROP, CBC, BMP #### [address] AST [Catalytic activity/Vol] 33 U/L Normal 10-42 [facility] Comment on above: Performed By: #### H EPATIC, PHOS, MG, HS TROP, CBC, BMP #### [facility] [address] [place] [address] Bilirubin [Mass/Vol] 0.5 mg/dL Normal 0.3-1.2 [facility] Comment on above: Performed By: #### H EPATIC, PHOS, MG, HS TROP, CBC, BMP #### [facility] [address] [place] [address] Calcium [Mass/Vol] 8.1 mg/dL Low 8.2-10.2 [facility] Comment on above: Performed By: #### H EPATIC, PHOS, MG, HS TROP, CBC, BMP #### [facility] [address] [place] [address] [place] Chloride [Moles/Vol] 99 mmol/L Normal 95-114 [facility] Comment on above: Performed By: #### H EPATIC, PHOS, MG, HS TROP, CBC, BMP #### [address] CO2 [Moles/Vol] 23.4 mmol/L Normal 22.0-30.0 [facility] Comment on above: Performed By: #### H EPATIC, PHOS, MG, HS TROP, CBC, BMP #### [address] Creatinine [Mass/Vol] 0.81 mg/dL Normal 0.44-1.03 [facility] Comment on above: Performed By: #### H EPATIC, PHOS, MG, HS TROP, CBC, BMP #### [address] Creatinine Clr Calc Pharmacy 96.75 [facility] Comment on above: Result Comment: PERF ORMED BY: [place] [id number] PATHOLOGIST APRN DANIELLE ANDERSON M.D. Performed By: #### H EPATIC, PHOS, MG, HS TROP, CBC, BMP #### [address] Estimated GFR ( Prerna > 60 [facility] Comment on above: Result Comment: GFR estimated reference range: According to KDOQI guidelines, <60 ml/min/1.73m2 is sufficient to diagnose a patient with chronic kidney disease. Performed By: #### H EPATIC, PHOS, MG, HS TROP, CBC, BMP #### [address] Estimated GFR (Non- Am > 60 [facility] Comment on above: Performed By: #### H EPATIC, PHOS, MG, HS TROP, CBC, BMP #### [address] Globulin (S) [Mass/Vol] 3.5 g/dL [facility] Comment on above: Performed By: #### H EPATIC, PHOS, MG, HS TROP, CBC, BMP #### [facility] [address] Glucose [Mass/Vol] 124 mg/dL High 70-100 [facility] Comment on above: Result Comment: [facility] Glucose Reference Range is dependent on time and content of last meal. Glucose of more than 200 mg/dL in a nonstressed, ambulatory subject supports the diagnosis of Diabetes Mellitus. ADA recommended reference range Performed By: #### H EPATIC, PHOS, MG, HS TROP, CBC, BMP #### [facility] [address] Potassium [Moles/Vol] 3.5 mmol/L Normal 3.5-5.1 [facility] Comment on above: Performed By: #### H EPATIC, PHOS, MG, HS TROP, CBC, BMP #### [address] Protein [Mass/Vol] 5.6 g/dL Low 6.1-7.9 [facility] Comment on above: Performed By: #### H EPATIC, PHOS, MG, HS TROP, CBC, BMP #### [address] Sodium [Moles/Vol] 134 mmol/L Low 136-146 [facility] Comment on above: Performed By: #### H EPATIC, PHOS, MG, HS TROP, CBC, BMP #### [address] Urea nitrogen [Mass/Vol] 13 mg/dL Normal 9-23 [facility] Comment on above: Performed By: #### H EPATIC, PHOS, MG, HS TROP, CBC, BMP #### [address] D-Dimer High Sensitivityon 1 04-11-2020 D-Dimer High Sensitivity 568 ng/mL High 0-243 [facility] Comment on above: Result Comment: [...] patients due to co-morbid conditions. PERFORMED BY: [place] [id number] PATHOLOGIST APRN DANIELLE ANDERSON M.D. Performed By: #### H EPATIC, PHOS, MG, HS TROP, CBC, BMP #### [address] Complete Blood Count Auto Di ffon 02-08-2021 Basophils (Bld) [#/Vol] 0.0 10*3/uL Normal 0.0-0.2 [facility] Comment on above: Result Comment: PERF ORMED BY: [place] [id number] PATHOLOGIST APRN DANIELLE ANDERSON M.D. Performed By: #### H EPATIC, PHOS, MG, HS TROP, CBC, BMP #### [address] Basophils/100 WBC (Bld) 0.1 % Normal . [facility] Comment on above: Performed By: #### H EPATIC, PHOS, MG, HS TROP, CBC, BMP #### [address] Eosinophils (Bld) [#/Vol] 0.0 10*3/uL Normal 0.0-0.45 [facility] Comment on above: Performed By: #### H EPATIC, PHOS, MG, HS TROP, CBC, BMP #### [address] Eosinophils/100 WBC (Bld) 0.0 % Normal . [facility] Comment on above: Performed By: #### H EPATIC, PHOS, MG, HS TROP, CBC, BMP #### [facility] [address] Erythrocyte distribution width (RBC) [Ratio] 13.2 % Normal 11.9-15.3 [facility] Comment on above: Performed By: #### H EPATIC, PHOS, MG, HS TROP, CBC, BMP #### [address] Hematocrit (Bld) [Volume fraction] 34.4 % Normal 34.0-46.4 [facility] Comment on above: Performed By: #### H EPATIC, PHOS, MG, HS TROP, CBC, BMP #### [address] Hemoglobin (Bld) [Mass/Vol] 11.7 g/dL Low 11.8-15.4 [facility] Comment on above: Performed By: #### H EPATIC, PHOS, MG, HS TROP, CBC, BMP #### [address] Lymphocytes (Bld) [#/Vol] 0.5 10*3/uL Low 1.00-4.8 [facility] Comment on above: Performed By: #### H EPATIC, PHOS, MG, HS TROP, CBC, BMP #### [address] Lymphocytes/100 WBC (Bld) 8.5 % Normal . [facility] Comment on above: Performed By: #### H EPATIC, PHOS, MG, HS TROP, CBC, BMP #### [address] MCH (RBC) [Entitic mass] 32.3 pg Normal 24.7-34.3 [facility] Comment on above: Performed By: #### H EPATIC, PHOS, MG, HS TROP, CBC, BMP #### [address] MCV (RBC) [Entitic vol] 95.2 fL Normal 80-100 [facility] Comment on above: Performed By: #### H EPATIC, PHOS, MG, HS TROP, CBC, BMP #### [address] Mean Corpuscular HGB Conc 33.9 g/dL Normal 32.0-35.0 [facility] Comment on above: Performed By: #### H EPATIC, PHOS, MG, HS TROP, CBC, BMP #### [address] Monocytes (Bld) [#/Vol] 0.6 10*3/uL Normal 0.0-0.8 [facility] Comment on above: Performed By: #### H EPATIC, PHOS, MG, HS TROP, CBC, BMP #### [address] Monocytes/100 WBC (Bld) 10.2 % Normal . [facility] Comment on above: Performed By: #### H EPATIC, PHOS, MG, HS TROP, CBC, BMP #### [address] Neutrophils (Bld) [#/Vol] 5.0 10*3/uL Normal 1.8-7.7 [facility] Comment on above: Performed By: #### H EPATIC, PHOS, MG, HS TROP, CBC, BMP #### [address] Neutrophils/100 WBC (Bld) 81.2 % Normal . [facility] Comment on above: Performed By: #### H EPATIC, PHOS, MG, HS TROP, CBC, BMP #### [address] Nucleated RBC/100 WBC (Bld) [Ratio] 0.1 % Normal 0-0.5 [facility] Comment on above: Performed By: #### H EPATIC, PHOS, MG, HS TROP, CBC, BMP #### [address] Platelet mean volume (Bld) [Entitic vol] 8.9 fL Normal 6.3-10.7 [facility] Comment on above: Performed By: #### H EPATIC, PHOS, MG, HS TROP, CBC, BMP #### [facility] [address] Platelets (Bld) [#/Vol] 198 10*3/uL Normal 150-450 [facility] Comment on above: Performed By: #### H EPATIC, PHOS, MG, HS TROP, CBC, BMP #### [facility] [address] RBC (Bld) [#/Vol] 3.61 10*6/uL Normal 3.60-5.00 [facility] Comment on above: Performed By: #### H EPATIC, PHOS, MG, HS TROP, CBC, BMP #### [address] WBC (Bld) [#/Vol] 6.2 10*3/uL Normal 4.5-11.0 [facility] Comment on above: Performed By: #### H EPATIC, PHOS, MG, HS TROP, CBC, BMP #### [address] Comprehensive Metabolic Pane veronique 02-08-2021 Albumin [Mass/Vol] 2.3 g/dL Low 3.2-5.5 [facility] Comment on above: Performed By: #### H EPATIC, PHOS, MG, HS TROP, CBC, BMP #### [address] Albumin/Globulin [Mass ratio] 0.7 {ratio} Normal [facility] Comment on above: Performed By: #### H EPATIC, PHOS, MG, HS TROP, CBC, BMP #### [facility] [address] [place] [address] ALP [Catalytic activity/Vol] 64 U/L Normal 32-92 [facility] Comment on above: Performed By: #### H EPATIC, PHOS, MG, HS TROP, CBC, BMP #### [address] ALT [Catalytic activity/Vol] 27 U/L Normal 10-60 [facility] Comment on above: Performed By: #### H EPATIC, PHOS, MG, HS TROP, CBC, BMP #### [facility] [address] AST [Catalytic activity/Vol] 29 U/L Normal 10-42 [facility] Comment on above: Performed By: #### H EPATIC, PHOS, MG, HS TROP, CBC, BMP #### [facility] [address] [place] [address] Bilirubin [Mass/Vol] 0.6 mg/dL Normal 0.3-1.2 [facility] Comment on above: Performed By: #### H EPATIC, PHOS, MG, HS TROP, CBC, BMP #### [address] Calcium [Mass/Vol] 8.3 mg/dL Normal 8.2-10.2 [facility] Comment on above: Performed By: #### H EPATIC, PHOS, MG, HS TROP, CBC, BMP #### [facility] [address] [place] [address] Chloride [Moles/Vol] 103 mmol/L Normal 95-114 [facility] Comment on above: Performed By: #### H EPATIC, PHOS, MG, HS TROP, CBC, BMP #### [facility] [address] [place] [address] CO2 [Moles/Vol] 26.8 mmol/L Normal 22.0-30.0 [facility] Comment on above: Performed By: #### H EPATIC, PHOS, MG, HS TROP, CBC, BMP #### [facility] [address] [place] [address] Creatinine [Mass/Vol] 0.95 mg/dL Normal 0.44-1.03 [facility] Comment on above: Performed By: #### H EPATIC, PHOS, MG, HS TROP, CBC, BMP #### [facility] [address] [place] [address] Creatinine Clr Calc Pharmacy 81.67 Normal [facility] Comment on above: Result Comment: PERF ORMED BY: [place] [id number] PATHOLOGIST APRN DANIELLE ANDERSON M.D. Performed By: #### H EPATIC, PHOS, MG, HS TROP, CBC, BMP #### [address] Estimated GFR ( Prerna > 60 Normal [facility] Comment on above: Result Comment: GFR estimated reference range: According to KDOQI guidelines, <60 ml/min/1.73m2 is sufficient to diagnose a patient with chronic kidney disease. Performed By: #### H EPATIC, PHOS, MG, HS TROP, CBC, BMP #### [address] Estimated GFR (Non- Am > 60 Normal [facility] Comment on above: Performed By: #### H EPATIC, PHOS, MG, HS TROP, CBC, BMP #### [address] Globulin (S) [Mass/Vol] 3.5 g/dL Normal [facility] Comment on above: Performed By: #### H EPATIC, PHOS, MG, HS TROP, CBC, BMP #### [address] Glucose [Mass/Vol] 133 mg/dL High 70-100 [facility] Comment on above: Result Comment: [place] Glucose Reference Range is dependent on time and content of last meal. Glucose of more than 200 mg/dL in a nonstressed, ambulatory subject supports the diagnosis of Diabetes Mellitus. ADA recommended reference range Performed By: #### H EPATIC, PHOS, MG, HS TROP, CBC, BMP #### [address] Potassium [Moles/Vol] 4.1 mmol/L Normal 3.5-5.1 [facility] Comment on above: Performed By: #### H EPATIC, PHOS, MG, HS TROP, CBC, BMP #### [address] Protein [Mass/Vol] 5.8 g/dL Low 6.1-7.9 [facility] Comment on above: Performed By: #### H EPATIC, PHOS, MG, HS TROP, CBC, BMP #### [address] Sodium [Moles/Vol] 138 mmol/L Normal 136-146 [facility] Comment on above: Performed By: #### H EPATIC, PHOS, MG, HS TROP, CBC, BMP #### [address] Urea nitrogen [Mass/Vol] 17 mg/dL Normal 9-23 [facility] Comment on above: Performed By: #### H EPATIC, PHOS, MG, HS TROP, CBC, BMP #### [address] D-Dimer High Sensitivityon 1 04-10-2020 D-Dimer High Sensitivity 775 ng/mL High 0-243 [facility] Comment on above: Result Comment: [...] patients due to co-morbid conditions. PERFORMED BY: [place] [id number] PATHOLOGIST APRN DANIELLE ANDERSON M.D. Performed By: #### H EPATIC, PHOS, MG, HS TROP, CBC, BMP #### [address] US venous duplex LE BIon US venous duplex LE BI [facility] [place] [address] [place] [address] Ultrasound Report Signed Patient: Elizabeth Sánchez MR#: [id number] : 1965 Acct:[id number] Age/Sex: 55 / F ADM Date: 02/06/21 Loc: Room: [address] [place] [address] Type: ADM IN Attending Dr: Randa Feng [...] Ramses Osuna M.D.02/08/2021 11:33 AM Dictation Location: [place] [address] Tech: Lorna Menjivar Transcribed By: TAD 02/08/21 1133 Dictated By: Ramses Osuna MD 02/08/21 1131 Signed By: 02/08/21 1133 Normal [facility] C-Reactive Proteinon 021 C-Reactive Protein 24.5 mg/dL High 0.0-1.0 [facility] Comment on above: Performed By: #### H EPATIC, PHOS, MG, HS TROP, CBC, BMP #### [address] Complete Blood Count Auto Di ffon 02-07-2021 Basophils (Bld) [#/Vol] 0.0 10*3/uL Normal 0.0-0.2 [facility] Comment on above: Result Comment: PERF ORMED BY: [place] [address] PATHOLOGIST APRN DANIELLE ANDERSON M.D. Performed By: #### H EPATIC, PHOS, MG, HS TROP, CBC, BMP #### [address] Basophils/100 WBC (Bld) 0.1 % Normal . [facility] Comment on above: Performed By: #### H EPATIC, PHOS, MG, HS TROP, CBC, BMP #### [address] Eosinophils (Bld) [#/Vol] 0.0 10*3/uL Normal 0.0-0.45 [facility] Comment on above: Performed By: #### H EPATIC, PHOS, MG, HS TROP, CBC, BMP #### [address] Eosinophils/100 WBC (Bld) 0.0 % Normal . [facility] Comment on above: Performed By: #### H EPATIC, PHOS, MG, HS TROP, CBC, BMP #### [address] Erythrocyte distribution width (RBC) [Ratio] 13.3 % Normal 11.9-15.3 [facility] Comment on above: Performed By: #### H EPATIC, PHOS, MG, HS TROP, CBC, BMP #### [address] Hematocrit (Bld) [Volume fraction] 33.7 % Low 34.0-46.4 [facility] Comment on above: Performed By: #### H EPATIC, PHOS, MG, HS TROP, CBC, BMP #### [address] Hemoglobin (Bld) [Mass/Vol] 11.6 g/dL Low 11.8-15.4 [facility] Comment on above: Performed By: #### H EPATIC, PHOS, MG, HS TROP, CBC, BMP #### [address] Lymphocytes (Bld) [#/Vol] 0.7 10*3/uL Low 1.00-4.8 [facility] Comment on above: Performed By: #### H EPATIC, PHOS, MG, HS TROP, CBC, BMP #### [address] Lymphocytes/100 WBC (Bld) 11.3 % Normal . [facility] Comment on above: Performed By: #### H EPATIC, PHOS, MG, HS TROP, CBC, BMP #### [address] MCH (RBC) [Entitic mass] 32.4 pg Normal 24.7-34.3 [facility] Comment on above: Performed By: #### H EPATIC, PHOS, MG, HS TROP, CBC, BMP #### [address] MCV (RBC) [Entitic vol] 94.2 fL Normal 80-100 [facility] Comment on above: Performed By: #### H EPATIC, PHOS, MG, HS TROP, CBC, BMP #### [address] Mean Corpuscular HGB Conc 34.5 g/dL Normal 32.0-35.0 [facility] Comment on above: Performed By: #### H EPATIC, PHOS, MG, HS TROP, CBC, BMP #### [place] [address] [place] Monocytes (Bld) [#/Vol] 0.6 10*3/uL Normal 0.0-0.8 [facility] Comment on above: Performed By: #### H EPATIC, PHOS, MG, HS TROP, CBC, BMP #### [place] [address] [place] Monocytes/100 WBC (Bld) 9.7 % Normal . [facility] Comment on above: Performed By: #### H EPATIC, PHOS, MG, HS TROP, CBC, BMP #### [address] Neutrophils (Bld) [#/Vol] 4.9 10*3/uL Normal 1.8-7.7 [facility] Comment on above: Performed By: #### H EPATIC, PHOS, MG, HS TROP, CBC, BMP #### [address] Neutrophils/100 WBC (Bld) 78.9 % Normal . [facility] Comment on above: Performed By: #### H EPATIC, PHOS, MG, HS TROP, CBC, BMP #### [address] Nucleated RBC/100 WBC (Bld) [Ratio] 0.0 % Normal 0-0.5 [facility] Comment on above: Performed By: #### H EPATIC, PHOS, MG, HS TROP, CBC, BMP #### [address] Platelet mean volume (Bld) [Entitic vol] 8.5 fL Normal 6.3-10.7 [facility] Comment on above: Performed By: #### H EPATIC, PHOS, MG, HS TROP, CBC, BMP #### [address] Platelets (Bld) [#/Vol] 179 10*3/uL Normal 150-450 [facility] Comment on above: Performed By: #### H EPATIC, PHOS, MG, HS TROP, CBC, BMP #### [address] RBC (Bld) [#/Vol] 3.58 10*6/uL Low 3.60-5.00 [facility] Comment on above: Performed By: #### H EPATIC, PHOS, MG, HS TROP, CBC, BMP #### [address] WBC (Bld) [#/Vol] 6.2 10*3/uL Normal 4.5-11.0 [facility] Comment on above: Performed By: #### H EPATIC, PHOS, MG, HS TROP, CBC, BMP #### [facility] [address] [place] [address] Comprehensive Metabolic Pane veronique 02-07-2021 Albumin [Mass/Vol] 2.4 g/dL Low 3.2-5.5 [facility] Comment on above: Performed By: #### H EPATIC, PHOS, MG, HS TROP, CBC, BMP #### [facility] [address] [place] [address] Albumin/Globulin [Mass ratio] 0.7 {ratio} Normal [facility] Comment on above: Performed By: #### H EPATIC, PHOS, MG, HS TROP, CBC, BMP #### [address] ALP [Catalytic activity/Vol] 63 U/L Normal 32-92 [facility] Comment on above: Performed By: #### H EPATIC, PHOS, MG, HS TROP, CBC, BMP #### [address] ALT [Catalytic activity/Vol] 32 U/L Normal 10-60 [facility] Comment on above: Performed By: #### H EPATIC, PHOS, MG, HS TROP, CBC, BMP #### [facility] [address] [place] [address] AST [Catalytic activity/Vol] 34 U/L Normal 10-42 [facility] Comment on above: Performed By: #### H EPATIC, PHOS, MG, HS TROP, CBC, BMP #### [facility] [address] [place] [address] Bilirubin [Mass/Vol] 0.6 mg/dL Normal 0.3-1.2 [facility] Comment on above: Performed By: #### H EPATIC, PHOS, MG, HS TROP, CBC, BMP #### [address] [place] [address] [place] Calcium [Mass/Vol] 8.0 mg/dL Low 8.2-10.2 [facility] Comment on above: Performed By: #### H EPATIC, PHOS, MG, HS TROP, CBC, BMP #### [address] Chloride [Moles/Vol] 103 mmol/L Normal 95-114 [facility] Comment on above: Performed By: #### H EPATIC, PHOS, MG, HS TROP, CBC, BMP #### [address] CO2 [Moles/Vol] 24.0 mmol/L Normal 22.0-30.0 [facility] Comment on above: Performed By: #### H EPATIC, PHOS, MG, HS TROP, CBC, BMP #### [address] Creatinine [Mass/Vol] 0.96 mg/dL Normal 0.44-1.03 [facility] Comment on above: Performed By: #### H EPATIC, PHOS, MG, HS TROP, CBC, BMP #### [facility] [address] [place] [address] Creatinine Clr Calc Pharmacy 81.55 [facility] Comment on above: Performed By: #### H EPATIC, PHOS, MG, HS TROP, CBC, BMP #### [facility] [address] [place] [address] Estimated GFR ( Prerna > 60 [facility] Comment on above: Result Comment: GFR estimated reference range: According to KDOQI guidelines, <60 ml/min/1.73m2 is sufficient to diagnose a patient with chronic kidney disease. Performed By: #### H EPATIC, PHOS, MG, HS TROP, CBC, BMP #### [address] Estimated GFR (Non- Am 60 [facility] Comment on above: Performed By: #### H EPATIC, PHOS, MG, HS TROP, CBC, BMP #### [address] [place] [address] [place] Globulin (S) [Mass/Vol] 3.5 g/dL Normal [facility] Comment on above: Performed By: #### H EPATIC, PHOS, MG, HS TROP, CBC, BMP #### [address] Glucose [Mass/Vol] 116 mg/dL High 70-100 [facility] Comment on above: Result Comment: [facility] Glucose Reference Range is dependent on time and content of last meal. Glucose of more than 200 mg/dL in a nonstressed, ambulatory subject supports the diagnosis of Diabetes Mellitus. ADA recommended reference range Performed By: #### H EPATIC, PHOS, MG, HS TROP, CBC, BMP #### [address] Potassium [Moles/Vol] 3.9 mmol/L Normal 3.5-5.1 [facility] Comment on above: Performed By: #### H EPATIC, PHOS, MG, HS TROP, CBC, BMP #### [address] Protein [Mass/Vol] 5.9 g/dL Low 6.1-7.9 [facility] Comment on above: Performed By: #### H EPATIC, PHOS, MG, HS TROP, CBC, BMP #### [address] Sodium [Moles/Vol] 137 mmol/L Normal 136-146 [facility] Comment on above: Performed By: #### H EPATIC, PHOS, MG, HS TROP, CBC, BMP #### [facility] [address] [place] [address] [place] Urea nitrogen [Mass/Vol] 21 mg/dL Normal 9-23 [facility] Comment on above: Performed By: #### H EPATIC, PHOS, MG, HS TROP, CBC, BMP #### [address] D-Dimer High Sensitivityon 04-09-2020 D-Dimer High Sensitivity 3224 ng/mL High 0-243 [facility] Comment on above: Result Comment: [...] patients due to co-morbid conditions. PERFORMED BY: [place] [address] PATHOLOGIST APRN DANIELLE ANDERSON M.D. Performed By: #### H EPATIC, PHOS, MG, HS TROP, CBC, BMP #### [address] ECG 12 lead ECGon 02-07-2021 ECG 12 lead ECG [facility] [place] [address] [place] [address] Electrocardiograph Report Signed Patient: Elizabeth Sánchez MR#: [id number] : 1965 Acct:[id number] Age/Sex: 55 / F ADM Date: 02/06/21 Loc: Room: [address] [place] [address] Type: ADM IN Attending Dr: Randa Feng [...] Signed By Andre Mendoza DO 02/08 Normal [facility] LDH Lactate Dehydrogenaseon 02-07-2021 LDH Lactate Dehydrogenase 316 U/L High 45-190 [facility] Comment on above: Performed By: #### H EPATIC, PHOS, MG, HS TROP, CBC, BMP #### [facility] [address] Prealbuminon 02-07-2021 Prealbumin [Mass/Vol] 5.1 mg/dL Low 18.0-38.0 [facility] Comment on above: Performed By: #### H EPATIC, PHOS, MG, HS TROP, CBC, BMP #### [facility] [address] T SPOT TB TESTon 02-07-2021 T SPOT TB TEST Normal [facility] Comment on above: Result Comment: See report. Scanned copy available in EMR. PERFORMED BY: [place] [address] PATHOLOGIST APRN DANIELLE ANDERSON M.D. Performed By: #### H EPATIC, PHOS, MG, HS TROP, CBC, BMP #### [facility] [address] [place] [address] Troponin I High Sensitivityo n 02-07-2021 Troponin I High Sensitivity 15 pg/mL Normal 0-15 [facility] Comment on above: Result Comment: PERF ORMED BY: [place] [address] PATHOLOGIST APRN DANIELLE ANDERSON M.D. Performed By: #### H EPATIC, PHOS, MG, HS TROP, CBC, BMP #### [facility] [address] [place] [address] Vit. B12/Folate Profileon Cobalamin (Vitamin B12) [Mass/Vol] 171 pg/mL Low 180-914 [facility] Comment on above: Performed By: #### H EPATIC, PHOS, MG, HS TROP, CBC, BMP #### [facility] [address] [place] [address] Folate 12.0 ng/mL Normal >5.9 [facility] Comment on above: Result Comment: Lizeth te reference range: >5.9 ng/ml The WHO technical consultation on folate and vitamin b12 deficiencies has determined that folate concentrations less than 4 ng/ml are considered deficient. Performed By: #### H EPATIC, PHOS, MG, HS TROP, CBC, BMP #### [facility] [address] [place] [id number] [facility] Vitamin B1 (Thiamine) Bloodo n 02-07-2021 Vitamin B1 (Thiamine) Blood 87.5 Normal 66.5-200.0 [facility] Comment on above: Result Comment: This test was developed and its performance characteristics determined by [facility]. It has not been cleared or approved by the Food and Drug Administration. Performed at: [address] [id number] [employer] Technician: Rebecca Griffin MD, Phone: [phone] PERFORMED BY: [place] [address] PATHOLOGIST APRN DANIELLE ANDERSON M.D. Performed By: #### H EPATIC, PHOS, MG, HS TROP, CBC, BMP #### [place] [id number] [facility] Vitamin D 25 Hydroxy Totalon 02-07-2021 Vitamin D 25 Hydroxy Total 39.2 ng/mL Normal 30-100 [facility] Comment on above: Result Comment: [place] MIN D STATUS 25(OH)VITAMIN D RANGE (ng/mL) Deficient <20 Insufficient 20 to <30 Sufficient 30 to 100 Reference: Toby MF,Eamon NC, Neyda GREEN, et al. Evaluation,treatment, and prevention of vitamin D deficiency; an Endocrine Society clinical practice guideline. JCEM. 2010; 96(7):1911-30. PERFORMED BY: [place] [address] PATHOLOGIST APRN DANIELLE ANDERSON M.D. Performed By: #### H EPATIC, PHOS, MG, HS TROP, CBC, BMP #### [place] [id number] [facility] Ammoniaon 02-06-2021 Ammonia (P) [Moles/Vol] 17 umol/L Normal 11-35 [facility] Comment on above: Result Comment: PERF ORMED BY: [place] [address] PATHOLOGIST APRN DANIELLE ANDERSON M.D. Performed By: #### B DIVISIONAL STOREKEEPER, AMM #### [address] Arterial Blood Gason 021 ABG Base Excess 0.8 mmol/L Normal -3.0-3.0 [facility] Comment on above: Performed By: #### A BG #### Point of Care testing , ABG Frac Inspired O2 56 % Normal [facility] Comment on above: Performed By: #### A BG #### Point of Care testing , ABG Oxygen Content 7.6 mmol/L Normal 6.6-9.7 [facility] Comment on above: Performed By: #### A BG #### Point of Care testing , ABG Oxygen Saturation 94.5 % Low 95.0-100.0 [facility] Comment on above: Performed By: #### A BG #### Point of Care testing , ABG PCO2 34.3 mm[Hg] Low 35.0-45.0 [facility] Comment on above: Performed By: #### A BG #### Point of Care testing , ABG PH 7.47 High 7.35-7.45 [facility] Comment on above: Performed By: #### A BG #### Point of Care testing , ABG PO2 69.5 mm[Hg] Low 80.0-100.0 [facility] Comment on above: Performed By: #### A BG #### Point of Care testing , CO2 [Moles/Vol] 25.2 mmol/L Normal 23.0-27.0 [facility] Comment on above: Performed By: #### A BG #### Point of Care testing , HCO3 (Bld) [Moles/Vol] 24.1 mmol/L Normal 23.0-29.0 [facility] Comment on above: Performed By: #### A BG #### Point of Care testing , Respiratory Critical Normal [facility] Comment on above: Result Comment: Crit ical Value called on: 02/06/2021 at 09:25 PERFORMED BY: [place] [address] PATHOLOGIST APRN DANIELLE ANDERSON M.D. Performed By: #### A BG #### Point of Care testing , VBG Draw Site Right Radial Normal [facility] Comment on above: Performed By: #### A BG #### Point of Care testing , B-Type Natriuretic Peptideon 02-06-2021 Natriuretic peptide B (Bld) [Mass/Vol] 42.0 pg/mL Normal 5-100 [facility] Comment on above: Result Comment: PERF ORMED BY: [place] [address] PATHOLOGIST APRN DANIELLE ANDERSON M.D. Performed By: #### B DIVISIONAL STOREKEEPER, AMM #### [facility] [address] Basic Metabolic Panelon 11- Calcium [Mass/Vol] 8.3 mg/dL Normal 8.2-10.2 [facility] Comment on above: Performed By: #### H EPATIC, PHOS, MG, HS TROP, CBC, BMP #### [facility] [address] [place] [address] [place] Chloride [Moles/Vol] 100 mmol/L Normal 95-114 [facility] Comment on above: Performed By: #### H EPATIC, PHOS, MG, HS TROP, CBC, BMP #### [facility] [address] [place] [address] [place] CO2 [Moles/Vol] 26.5 mmol/L Normal 22.0-30.0 [facility] Comment on above: Performed By: #### H EPATIC, PHOS, MG, HS TROP, CBC, BMP #### [facility] [address] [place] [address] [place] Creatinine [Mass/Vol] 1.17 mg/dL High 0.44-1.03 [facility] Comment on above: Performed By: #### H EPATIC, PHOS, MG, HS TROP, CBC, BMP #### [facility] [address] Creatinine Clr Calc Pharmacy 65.51 [facility] Comment on above: Performed By: #### H EPATIC, PHOS, MG, HS TROP, CBC, BMP #### [facility] [address] Estimated GFR ( Prerna 58 [facility] Comment on above: Result Comment: GFR estimated reference range: According to KDOQI guidelines, <60 ml/min/1.73m2 is sufficient to diagnose a patient with chronic kidney disease. Performed By: #### H EPATIC, PHOS, MG, HS TROP, CBC, BMP #### [facility] [address] Estimated GFR (Non- Am 48 [facility] Comment on above: Performed By: #### H EPATIC, PHOS, MG, HS TROP, CBC, BMP #### [facility] [address] Glucose [Mass/Vol] 125 mg/dL High 70-100 [facility] Comment on above: Result Comment: [place] Glucose Reference Range is dependent on time and content of last meal. Glucose of more than 200 mg/dL in a nonstressed, ambulatory subject supports the diagnosis of Diabetes Mellitus. ADA recommended reference range Performed By: #### H EPATIC, PHOS, MG, HS TROP, CBC, BMP #### [facility] [address] Potassium Normal 3.5-5.1 [facility] Comment on above: Result Comment: Spec imen hemolyzed, redraw requested Performed By: #### H EPATIC, PHOS, MG, HS TROP, CBC, BMP #### [facility] [address] Sodium [Moles/Vol] 139 mmol/L Normal 136-146 [facility] Comment on above: Performed By: #### H EPATIC, PHOS, MG, HS TROP, CBC, BMP #### [facility] [address] [place] [address] Urea nitrogen [Mass/Vol] 27 mg/dL High 9-23 [facility] Comment on above: Performed By: #### H EPATIC, PHOS, MG, HS TROP, CBC, BMP #### [facility] [address] [place] [address] Blood Cultureon 02-06-2021 Bacteria identified Cx Nom (Bld) NO GROWTH 5 DAYS PERFORMED BY: [place] [address] PATHOLOGIST APRN DANIELLE ANDERSON M.D. [facility] Comment on above: Performed By: #### H EPATIC, PHOS, MG, HS TROP, CBC, BMP #### [facility] [address] [place] [address] Bacteria identified Cx Nom (Bld) NO GROWTH 5 DAYS PERFORMED BY: [place] [address] PATHOLOGIST APRN DANIELLE ANDERSON M.D. [facility] Comment on above: Performed By: #### H EPATIC, PHOS, MG, HS TROP, CBC, BMP #### [address] COVID-19 Antigenon 1 COVID-19 Antigen Results [...] its performance Drew Disclaimer characteristic determined by [employer] and Drew Disclaimer validated at [facility]. This Drew Disclaimer test has [...] is terminated or revoked sooner. PERFORMED BY: [facility] [address] [place] [address] PATHOLOGIST APRN DANIELLE ANDERSON M.D. [facility] Comment on above: Performed By: #### C OVID-19 DREW, SOFIAPOS #### [facility] [address] [place] [address] [facility] [address] angio chest PE protocolon 02-06-2021 CT angio chest PE protocol [facility] [address] [place] [address] [place] [address] CT Scan Report Signed Patient: Elizabeth Sánchez MR#: [id number] : 1965 Acct:[id number] Age/Sex: 55 / F ADM Date: 02/06/21 Loc: ER Room: Type: [facility] ER Attending Dr: Ordering Provider: Yang Paez [...] Ramses Gary M.D.02/06/2021 1:30 PM Dictation Location: [place] [address] Transcribed By: [facility] 02/06/21 1330 Dictated By: Ramses Gary DO 02/06/21 1326 Signed By: 02/06/21 1330 Normal [facility] CT head/brain wo conon 02-06 CT head/brain wo con [facility] [place] [address] [place] [id number] Scan Report Signed Patient: Elizabeth Sánchez MR#: [id number] : 1965 Acct:[id number] Age/Sex: 55 / F ADM Date: 02/06/21 Loc: ER Room: Type: [facility] ER Attending Dr: Ordering Provider: Yang Paez [...] Ananth Hanson M.D.02/06/2021 10:25 AM Dictation Location: [place] [address] Transcribed By: [facility] 02/06/21 1025 Dictated By: Ananth Hanson MD 02/06/21 1014 Signed By: 02/06/21 1025 Normal [facility] Complete Blood Count Auto Di ffon 02-06-2021 Basophils (Bld) [#/Vol] 0.0 10*3/uL Normal 0.0-0.2 [facility] Comment on above: Result Comment: PERF ORMED BY: [address] [address] PATHOLOGIST APRN DANIELLE ANDEROSN M.D. Performed By: #### H EPATIC, PHOS, MG, HS TROP, CBC, BMP #### [address] Basophils/100 WBC (Bld) 0.2 % Normal . [facility] Comment on above: Performed By: #### H EPATIC, PHOS, MG, HS TROP, CBC, BMP #### [address] Eosinophils (Bld) [#/Vol] 0.0 10*3/uL Normal 0.0-0.45 [facility] Comment on above: Performed By: #### H EPATIC, PHOS, MG, HS TROP, CBC, BMP #### [address] Eosinophils/100 WBC (Bld) 0.0 % Normal . [facility] Comment on above: Performed By: #### H EPATIC, PHOS, MG, HS TROP, CBC, BMP #### [address] Erythrocyte distribution width (RBC) [Ratio] 13.6 % Normal 11.9-15.3 [facility] Comment on above: Performed By: #### H EPATIC, PHOS, MG, HS TROP, CBC, BMP #### [address] Hematocrit (Bld) [Volume fraction] 37.9 % Normal 34.0-46.4 [facility] Comment on above: Performed By: #### H EPATIC, PHOS, MG, HS TROP, CBC, BMP #### [address] Hemoglobin (Bld) [Mass/Vol] 12.7 g/dL Normal 11.8-15.4 [facility] Comment on above: Performed By: #### H EPATIC, PHOS, MG, HS TROP, CBC, BMP #### [address] Lymphocytes (Bld) [#/Vol] 0.6 10*3/uL Low 1.00-4.8 [facility] Comment on above: Performed By: #### H EPATIC, PHOS, MG, HS TROP, CBC, BMP #### [address] Lymphocytes/100 WBC (Bld) 11.4 % Normal . [facility] Comment on above: Performed By: #### H EPATIC, PHOS, MG, HS TROP, CBC, BMP #### [address] MCH (RBC) [Entitic mass] 31.7 pg Normal 24.7-34.3 [facility] Comment on above: Performed By: #### H EPATIC, PHOS, MG, HS TROP, CBC, BMP #### [address] MCV (RBC) [Entitic vol] 94.6 fL Normal 80-100 [facility] Comment on above: Performed By: #### H EPATIC, PHOS, MG, HS TROP, CBC, BMP #### [address] Mean Corpuscular HGB Conc 33.5 g/dL Normal 32.0-35.0 [facility] Comment on above: Performed By: #### H EPATIC, PHOS, MG, HS TROP, CBC, BMP #### [address] Monocytes (Bld) [#/Vol] 0.7 10*3/uL Normal 0.0-0.8 [facility] Comment on above: Performed By: #### H EPATIC, PHOS, MG, HS TROP, CBC, BMP #### [address] Monocytes/100 WBC (Bld) 11.6 % Normal . [facility] Comment on above: Performed By: #### H EPATIC, PHOS, MG, HS TROP, CBC, BMP #### [address] Neutrophils (Bld) [#/Vol] 4.3 10*3/uL Normal 1.8-7.7 [facility] Comment on above: Performed By: #### H EPATIC, PHOS, MG, HS TROP, CBC, BMP #### [facility] [address] Neutrophils/100 WBC (Bld) 76.8 % Normal . [facility] Comment on above: Performed By: #### H EPATIC, PHOS, MG, HS TROP, CBC, BMP #### [facility] [address] Nucleated RBC/100 WBC (Bld) [Ratio] 0.2 % Normal 0-0.5 [facility] Comment on above: Performed By: #### H EPATIC, PHOS, MG, HS TROP, CBC, BMP #### [address] Platelet mean volume (Bld) [Entitic vol] 9.0 fL Normal 6.3-10.7 [facility] Comment on above: Performed By: #### H EPATIC, PHOS, MG, HS TROP, CBC, BMP #### [facility] [address] Platelets (Bld) [#/Vol] 197 10*3/uL Normal 150-450 [facility] Comment on above: Performed By: #### H EPATIC, PHOS, MG, HS TROP, CBC, BMP #### [address] RBC (Bld) [#/Vol] 4.01 10*6/uL Normal 3.60-5.00 [facility] Comment on above: Performed By: #### H EPATIC, PHOS, MG, HS TROP, CBC, BMP #### [place] [address] [place] WBC (Bld) [#/Vol] 5.6 10*3/uL Normal 4.5-11.0 [facility] Comment on above: Performed By: #### H EPATIC, PHOS, MG, HS TROP, CBC, BMP #### [place] [id number] [facility] D-Dimer High Sensitivityon 1 04-08-2020 D-Dimer High Sensitivity 616 ng/mL High 0-243 [facility] Comment on above: Result Comment: [...] patients due to co-morbid conditions. PERFORMED BY: [place] [address] PATHOLOGIST APRN DANIELLE ANDERSON M.D. Performed By: #### H EPATIC, PHOS, MG, HS TROP, CBC, BMP #### [place] [id number] [facility] ECG 12 lead ECGon 02-06-2021 ECG 12 lead ECG [facility] [place] [address] [place] [address] Electrocardiograph Report Signed Patient: Elizabeth Sánchez MR#: [id number] : 1965 Acct:[id number] Age/Sex: 55 / F ADM Date: 02/06/21 Loc: Room: [address] [place] [address] Type: ADM IN Attending Dr: Randa Feng [...] MUS Signed By Andre Mendoza DO 02/08 [facility] Hepatic Panelon 02-06-2021 Albumin [Mass/Vol] 2.8 g/dL Low 3.2-5.5 [facility] Comment on above: Performed By: #### H EPATIC, PHOS, MG, HS TROP, CBC, BMP #### [facility] [address] Albumin/Globulin [Mass ratio] 0.8 {ratio} [facility] Comment on above: Performed By: #### H EPATIC, PHOS, MG, HS TROP, CBC, BMP #### [facility] [address] [place] [address] ALP [Catalytic activity/Vol] 78 U/L Normal 32-92 [facility] Comment on above: Performed By: #### H EPATIC, PHOS, MG, HS TROP, CBC, BMP #### [facility] [address] [place] [address] ALT [Catalytic activity/Vol] 45 U/L Normal 10-60 [facility] Comment on above: Performed By: #### H EPATIC, PHOS, MG, HS TROP, CBC, BMP #### [facility] [address] [place] [address] AST [Catalytic activity/Vol] 47 U/L High 10-42 [facility] Comment on above: Performed By: #### H EPATIC, PHOS, MG, HS TROP, CBC, BMP #### [facility] [address] [place] [address] Bilirubin [Mass/Vol] 0.9 mg/dL Normal 0.3-1.2 [facility] Comment on above: Performed By: #### H EPATIC, PHOS, MG, HS TROP, CBC, BMP #### [facility] [address] [place] [address] Bilirubin,Indirect 0.6 mg/dL Normal [facility] Comment on above: Performed By: #### H EPATIC, PHOS, MG, HS TROP, CBC, BMP #### [address] Bilirubin.indirect [Mass/Vol] 0.3 mg/dL Normal 0.0-0.4 [facility] Comment on above: Performed By: #### H EPATIC, PHOS, MG, HS TROP, CBC, BMP #### [address] Globulin (S) [Mass/Vol] 3.6 g/dL Normal [facility] Comment on above: Performed By: #### H EPATIC, PHOS, MG, HS TROP, CBC, BMP #### [address] Protein [Mass/Vol] 6.4 g/dL Normal 6.1-7.9 [facility] Comment on above: Performed By: #### H EPATIC, PHOS, MG, HS TROP, CBC, BMP #### [address] Magnesiumon 02-06-2021 Magnesium [Mass/Vol] 2.4 mg/dL Normal 1.6-2.6 [facility] Comment on above: Result Comment: PERF ORMED BY: [place] [address] PATHOLOGIST APRN DANIELLE ANDERSON M.D. Performed By: #### H EPATIC, PHOS, MG, HS TROP, CBC, BMP #### [address] Partial Thromboplastin Timeo n 02-06-2021 aPTT Coag (Bld) [Time] 29.1 s Normal 25.1-36.5 [facility] Comment on above: Performed By: #### H EPATIC, PHOS, MG, HS TROP, CBC, BMP #### [address] Phosphoruson 02-06-2021 Phosphate [Mass/Vol] 3.1 mg/dL Normal 2.5-4.6 [facility] Comment on above: Performed By: #### H EPATIC, PHOS, MG, HS TROP, CBC, BMP #### [facility] [address] [place] [address] [place] Prothrombin Time INRon 02-06 INR Coag (PPP) [Relative time] 1.4 {INR} Normal [facility] Comment on above: Result Comment: [...] PHOS, MG, HS TROP, CBC, BMP #### [facility] [address] PT Coag (PPP) [Time] 15.8 s High 9.0-12.9 [facility] Comment on above: Performed By: #### H EPATIC, PHOS, MG, HS TROP, CBC, BMP #### [facility] [address] Redraw Potassiumon 1 Potassium [Moles/Vol] 3.6 mmol/L Normal 3.5-5.1 [facility] Comment on above: Result Comment: PERF ORMED BY: [place] [address] PATHOLOGIST APRN DANIELLE ANDERSON M.D. Performed By: #### H EPATIC, PHOS, MG, HS TROP, CBC, BMP #### [facility] [address] Drew Ag Positiveon 02-07-20 21 Drew Ag Positive Positive Critically abnormal Negative [facility] Comment on above: Result Comment: This is a duplicate Drew SARS Antigen (PRECIOUS) result to be used for statistical tracking purpose only. PERFORMED BY: [place] [address] PATHOLOGIST APRN DANIELLE ANDERSON M.D. Performed By: #### H EPATIC, PHOS, MG, HS TROP, CBC, BMP #### [facility] [address] Troponin I High Sensitivityo n 02-06-2021 Troponin I High Sensitivity 14 pg/mL Normal 0-15 [facility] Comment on above: Result Comment: PERF ORMED BY: [address] [place] [address] PATHOLOGIST APRN DANIELLE ANDERSON M.D. Performed By: #### H EPATIC, PHOS, MG, HS TROP, CBC, BMP #### [address] XR chest 1V portableon 02-06 XR chest 1V portable [facility] [place] [address] [place] [address] XRay Report Signed Patient: Elizabeth Sánchez MR#: [id number] : 1965 Acct:[id number] Age/Sex: 55 / F ADM Date: 02/06/21 Loc: ER Room: Type: [facility] ER Attending Dr: Ordering Provider: Yang Paez [...] Ananth Hanson M.D.02/06/2021 9:49 AM Dictation Location: [place] [address] Transcribed By: [facility] 02/06/21948 Dictated By: Ananth Hanson MD 02/06/2144 Signed By: 02/06/21948 [facility] Vital Signs Date Time Vital Sign Value Performing Clinician Facility 04-28-2023 08:04-0500 Body temperature 98.29 [degF] Nola Skelton MD Work Phone: [facility] 04-28-2023 08:04-0500 Diastolic blood pressure 91 mm[Hg] Nola Skelton MD Work Phone: [facility] 04-28-2023 08:04-0500 Heart rate 91 /min Nola Skelton MD Work Phone: [facility] 04-28-2023 08:04-0500 Respiratory rate 19 /min Nola Skelton MD Work Phone: [facility] 04-28-2023 08:04-0500 SaO2% (BldA) [Mass fraction] 97 % Nola Skelton MD Work Phone: [facility] 04-28-2023 08:04-0500 Systolic blood pressure 122 mm[Hg] Nola Skelton MD Work Phone: [facility] 04-27-2023 03:47-0500 Body mass index (BMI) [Ratio] 33.25 kg/m2 Nola Skelton MD Work Phone: [facility] 04-27-2023 03:47-0500 Body weight 105.1 kg Nola Skelton MD Work Phone: [facility] 04-22-2023 12:33-0500 Body height 177.8 cm Nola Skelton MD Work Phone: [facility] 03-17-2023 08:45-0500 Diastolic blood pressure 80 mm[Hg] Nola Zuniga [facility] 03-17-2023 08:45-0500 Heart rate 73 /min Nola Zuniga [facility] 03-17-2023 08:45-0500 Mean blood pressure 97 mm[Hg] Nola Zuniga [facility] 03-17-2023 08:45-0500 Systolic blood pressure 132 mm[Hg] Nola Zuniga [facility] 03-17-2023 08:45-0500 Heart rate 69 /min Nola Zuniga [facility] 03-17-2023 08:45-0500 SaO2% (BldA) [Mass fraction] 93 % Nola Zuniga [facility] 03-17-2023 08:45-0500 Diastolic blood pressure 71 mm[Hg] Nola Zuniga [facility] 03-17-2023 08:45-0500 Mean blood pressure 91 mm[Hg] Nola Zuniga [facility] 03-17-2023 08:45-0500 Systolic blood pressure 131 mm[Hg] Nola Zuniga [facility] 03-17-2023 08:44-0500 Respiratory rate 17 /min Nola Zuniga [facility] 05-04-2022 17:42-0500 Body height 170.18 cm Cassie Lorenz Other [employer] Other 04-16-2022 16:15-0500 Body height 170.18 cm Cassie Lorenz Other [employer] Other 04-16-2022 16:15-0500 Body mass index (BMI) [Ratio] 35.86 kg/m2 Cassie Lorenz Other [employer] Other 04-16-2022 16:15-0500 Body weight 103.87 kg Cassie Lorenz Other [employer] Other 04-16-2022 16:15-0500 Diastolic blood pressure 80 mm[Hg] Cassie Lorenz Other [employer] Other 04-16-2022 16:15-0500 SaO2% (BldA) [Mass fraction] 97 % Cassie Lorenz Other [employer] Other 04-16-2022 16:15-0500 Systolic blood pressure 138 mm[Hg] Cassie Lorenz Other [employer] Other Encounters Encounter Date Encounter Type Care Provider Facility Start: 05-03-2023 End: 05-03-2023 ambulatory Cassie Lorenz Other [employer] Other Start: 05-03-2023 Sbsq nursing facil care/day new problem 25 min Cassie Lorenz [facility] Start: 05-03-2023 Telephone encounter Cassie Lorenz [facility] Start: 04-30-2023 End: 04-30-2023 ambulatory Cassie Lorenz Other [employer] Other Start: 04-30-2023 Telephone encounter Cassie Lorenz [facility] Start: 04-21-2023 Evaluation and management of inpatient [facility] Start: 04-21-2023 Emergency department patient visit [facility] Start: 04-21-2023 End: 04-28-2023 Evaluation and management of inpatient [facility] Start: 04-21-2023 End: 04-28-2023 Evaluation and management of inpatient Nola Skelton MD Work Phone: [facility]Med Surg Comment on above: Pulmonary embolism ( HCC) (Primary Dx); Acute saddle pulmonary embolism without acute cor pulmonale (HCC); Claudication of both lower extremities (HCC); Peripheral venous insufficiency; Seizure disorder (HCC) Start: 04-21-2023 End: 04-21-2023 ambulatory Cassie Lorenz Other [employer] Other Start: 04-21-2023 Telephone encounter Cassie Lorenz [facility] Start: 04-12-2023 End: 04-12-2023 ambulatory Cassie Lorenz Other [employer] Other Start: 04-12-2023 Initial nursing facility care/day 35 minutes Cassie Dye [facility] Start: 04-05-2023 End: 04-08-2023 Evaluation and management of inpatient Nola Zuniga Facility:[facility] Start: 03-19-2023 End: 03-19-2023 ambulatory Cassie Lorenz Other [employer] Other Start: 03-19-2023 Telephone encounter Cassie Lorenz [facility] Start: 03-17-2023 End: 03-17-2023 ambulatory LUCY MENENDEZ Not Available Start: 03-17-2023 End: 03-18-2023 ambulatory Nola Zuniga Facility:[facility] Start: 03-17-2023 End: 03-17-2023 Patient encounter procedure Nola Zuniga [facility] Start: 02-10-2023 End: 02-10-2023 ambulatory NOLA ZUNIGA Not Available Start: 07-21-2022 End: 07-22-[address] CASSIE LORENZ Facility: Start: 06-30-2022 End: 06-30-2022 ambulatory Cassie Lorenz Other [employer] Other Start: 06-30-2022 Telephone encounter Cassie Lorenz [facility] Start: 06-16-2022 End: 06-16-2022 ambulatory Cassie Lorenz Other [employer] Other Start: 06-16-2022 Telephone encounter Cassie Lorenz [facility] Start: 06-03-2022 End: 06-03-2022 ambulatory Cassie Lorenz Other [employer] Other Start: 06-03-2022 Telephone encounter Cassie Lorenz [facility] Start: 05-11-2022 End: 05-11-2022 ambulatory Cassie Lorenz Other [employer] Other Start: 05-11-2022 Telephone encounter Cassie Lorenz [facility] Start: 05-04-2022 End: 05-04-2022 ambulatory Cassie Lorenz Other [employer] Other Start: 05-04-2022 Telephone encounter Cassie Lorenz [facility] Start: 04-16-2022 End: 04-17-[address] CASSIE LORENZ [employer] Other Start: 04-16-2022 Office outpatient vi sit 15 minutes Cassie Lorenz [facility] Start: 04-06-2022 End: 04-06-2022 ambulatory Cassie Lorenz Other [employer] Other Start: 04-06-2022 Telephone encounter Cassie Lorenz [facility] Start: 03-20-2022 End: 03-20-2022 ambulatory Cassie Lorenz Other [employer] Other Start: 03-20-2022 Telephone encounter Cassie Lorenz [facility] Start: 03-19-[address] CASSIE LORENZ [...] Work Phone: Start: 04-21-2023 CATH HEMO INTERFACE [facility] yusuf Pinzon MD Work Phone: Start: 04-21-2023 [...] Work Phone: Start: 04-21-2023 CATH HEMO INTERFACE [facility] yusuf Pinzon MD Work Phone: Start: 04-21-2023 Ecg routine ecg w/le ast 12 lds i&r only Yosef Hull MD Work Phone: History of operative procedure on knee Cassie Lorenz Other History of tonsillectomy Yun Zuniga Plan of Treatment Date Care Activity Detail Author Start: 05-04-2023 End: 04-27-2024 Protime-INR Protime-INR Lab Routine Acute saddle pulmonary embolism without acute cor pulmonale (HCC) Expected: 05/04/2023, Expires: 04/27/2024 [facility] Comment on above: Expected: 05/04/2023 , Expires: 04/27/2024 Start: 04-21-2023 Annual Wellness Visi t (Medicare) Annual Wellness Visit (Medicare) [facility] [employer] Start: 10-20-2022 Influenza vaccination Flu vaccine (# 1) [facility] Start: 06-21-2013 Screening for malign ant neoplasm of breast Breast cancer screen [facility] [employer] Start: 06-21-2013 Shingles vaccine (1 of 2) Shingles v accine (1 of 2) [facility] Start: 06-21-2008 Screening for malign ant neoplasm of colon [facility] Start: 2003 Lipid panel Lipids [facility] Start: 06-21-1998 Diabetes screen Diabetes screen [facility] Start: 06-21-1993 Screening for malign ant neoplasm of cervix [facility] Start: 06-21-1984 Screening for malign ant neoplasm of cervix Pap smear [facility] Start: 06-21-1982 DTaP/Tdap/Td vaccine (1 - Tdap) DTaP/Tdap/Td vaccine (1 - Tdap) [facility] Start: 06-21-1981 Hepatitis C screening Hepatitis C sc reen [facility] Start: 06-21-1978 HIV screening HIV screen [facility] [employer] Start: 1975 Depression Screen Depression Screen [facility] Start: 1965 COVID-19 Vaccine (#1) COVID-19 Vacci ne (#1) [facility] Start: 1965 Hepatitis B vaccine (1 of 3 - 3-dose series) Hepatitis B vaccine (1 of 3 - 3-dose series) [facility] End: 04-29-2023 Anti-Xa, Unfractionated Heparin Anti-Xa, Unfractionated Heparin Lab Timed Now Then Every 6hr for 3 Days starting 04/26/2023 until 04/29/2023, 5 completed [facility] Comment on above: Now Then Every 6hr f or 3 Days starting 04/26/2023 until 04/29/2023, 5 completed End: 05-06-2023 Basic metabolic 2000 panel - Serum or Plasma Basic Metabolic Panel Lab Routine Daily for 15 Days starting 04/22/2023 until 05/06/2023, 6 completed [facility] Comment on above: Daily for [address] ar[address] 04/22/2023 until 05/06/2023, 6 completed End: 05-06-2023 CBC panel - Blood by Automated count CBC Lab Routine Every Other Day for 10 Days starting 04/28/2023 until 05/06/2023, 1 completed [facility] Comment on above: Every Other Day for 10 Days starting 04/28/2023 until 05/06/2023, 1 completed Chest physiotherapy Chest physio therapy Respiratory Care Routine Daily until discontinued starting 04/26/2023 [facility] Comment on above: Daily until disconti nued starting 04/26/2023 Continuous pulse oximetry Pulse oximetry, continuous Respiratory Care Routine Every 4hr until discontinued starting 04/26/2023 [facility] Comment on above: Every 4hr until disc ontinued starting 04/26/2023 Nasal Cannula Oxygen Nasal Cannu la Oxygen Respiratory Care Routine Daily until discontinued starting 04/21/2023 [facility] Comment on above: Daily until disconti nued starting 04/21/2023 Oxygen therapy [[facility] Data Set] Initiate Oxygen Therapy Protocol Respiratory Care Routine As Needed until discontinued starting 04/21/2023 [facility] Work Phone: Comment on above: As Needed until disc ontinued starting 04/21/2023 End: 05-23-2023 Protime-INR Protime-INR Lab Routine Daily for 30 Days starting 04/24/2023 until 05/23/2023, 4 completed [facility] Comment on above: Daily for [address] ar[address] 04/24/2023 until 05/23/2023, 4 completed End: 04-23-2023 SPECIMEN REJECTION [facility] Comment on above: Once for 1 Occurrenc es starting 04/23/2023 until 04/23/2023 Spirometry panel Incentive juanis metry RT Respiratory Care Routine Every 2hr while awake until discontinued starting 04/26/2023 [facility] Comment on above: Every 2hr while awak e until discontinued starting 04/26/2023 Immunizations Immunization Date Immunization Notes [facility]-01-2022 influenza virus vaccine, split virus (incl. purified surface antigen) Cassie Lorenz Other [employer] Other 01-28-2021 influenza virus vaccine, split virus (incl. purified surface antigen) Cassie Lorenz Other [employer] Other 12-07-2019 influenza virus vaccine, split virus (incl. purified surface antigen) Cassie Lorenz Other [employer] Other 04-09-2016 pneumococcal polysaccharide vaccine, 23 valent Cassie Lorenz Other [employer] Other Payers Date Payer Category Payer Unknown [id number] 2.16.84 [id number] 1965 Unknown [id number] 2.16.84 [id number] 1965 Unknown [id number] 2.16.84 [id number] 1965 Unknown [id number] 1965 Unknown [id number] 1965 Unknown [id number] 2.16. [id number] 1965 Unknown [id number] 2.16. [id number] 1965 Unknown [id number] 2.16.8 [id number] 1965 Unknown [id number] 2.16.8 [id number] 1961 Medicaid [id number] 2. [id number] 1961 Medicare [id number] 2.1 [id number] Social History Date Type Detail Facility Start: 04-21-2023 End: 04-24-2023 Sex Assigned At [facility] Tobacco smoking status No Smokin g Status Entered [facility] Start: 04-21-2023 Tobacco smoking stat us NHIS Never smoked tobacco [facility] Start: 04-21-2023 Tobacco use and exposure Smoke less tobacco non-user [facility] Start: 04-24-2023 Alcohol intake Ex-drinker (finding) [facility] Start: 04-21-2023 End: 04-24-2023 History of Social function [facility] [employer] Has the electric, OnK[employer] s, oil, or water [facility] threatened to shut off services in your home in past 12Mo No [facility] (I/We) worried hermelindo gusman (my/our) food would run out before (I/we) got money to buy more. Never true [facility] In the past 12 month s, has lack of transportation kept you from medical appointments or from getting medications? Yes [facility] Start: 1965 Sex Assigned At Not on file B ON [employer] NEGATED: Highlighted rowStart: NINF History of tobacco use Passive smoker [facility] [employer] Functional Status Date Assessment Result Facility 03-17-2023 Functional Status No [facility] Clinical Notes 04-16-2022 to 05-03-2023 Note Date [...] Ambrocio's team. Rx sent last week to [facility] pharmacy [employer] Other 02-07-2024 History of Present illness Narrative* [...] Total knee arthroplasty (Right). Medications: Reviewed in [facility] including carbamazepine Allergies: Dilantin [phenytoin] Social History: [...] an outpatient Nadia Lund MD [facility]On[facility] This note is created [...] 04/27/2023 3:07 PM EST Occupational Therapy Facility/Department: [facility] RENAL//MED SURG Occupational Therapy Treatment Session Name: [...] documented unless otherwise noted below. 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 Vascular surgery will sign off [facility] [place] Associated attestation - Ilia Christy MD - [...] Dr. Pinzon. * Sourav Mak [facility] - 04/27/2023 11:54 AM EST Pharmacy Note [...] 04/27/2023 11:06 AM EST Physical Therapy Facility/Department: [facility] RENAL//MED SURG Physical Therapy Daily Treatment Note [...] assess- pt seated in bedside chair upon senior technical writer's exit) Transfers Sit to Stand: Contact guard [...] slides, short arc quads, LAQs. Reps: x10 [facility] - Mobility [facility] Basic Mobility - Inpatient How much help [...] 3-5 steps with a railing?: A Lot [facility] Inpatient Mobility Raw Score : 20 [facility] Inpatient T-Scale Score : 47.67 Mobility Inpatient [...] Katy Pardo - 04/27/2023 10:28 AM EST Marketing Campaign Analyst New Medication Counseling Note Medication counseling provided [...] medication list. Patient verbalized understanding. Katy Pardo Marketing Campaign Analyst * Ismael Reynolds MD - 04/27/2023 10:20 AM EST Images from the original note were not included. [facility] Office: [phone] Reggie Barrera DO, Darin Forman DO, Werner [...] Brooke MD, Isaak Padilla MD, Lissette Rodriguez, PHOTOSTAT OPERATOR, Elizabeth Bryant, PHOTOSTAT OPERATOR, Tino Lr, PHOTOSTAT OPERATOR, Leticia Zuniga, RUDDY,Kim Hammer, PHOTOSTAT OPERATOR, Rebekah Vásquez, PHOTOSTAT OPERATOR, Steph Ly PHOTOSTAT OPERATOR, Maryanne Oh, PHOTOSTAT OPERATOR, Laly Navarro, PHOTOSTAT OPERATOR, Jennifer Souza, PA-C, Desi Gann, PA-C, Nidia Montgomery, PHOTOSTAT OPERATOR, Palmira Gonzales, PAINTER TUMBLING BARREL, Valery Gary, PHOTOSTAT OPERATOR, Margoth Ackerman PHOTOSTAT OPERATOR, Ricarda Shelby, PHOTOSTAT OPERATOR [facility] IN-PATIENT SERVICE [facility] Progress Note 04/27/2023 10:20 AM Name: Elizabeth Sánchez Acct: [id number] Room: [address] [place] [address] Day: 6 Admit Date: 04/21/2023 2:29 PM [...] 57 y.o. with presented as transfer [place] with 2d of sob, syncope.S [...] input(s): PROT , LABALBU , LABA1C , O1QOWKY , L0IRSGZ , FT4 , TSH , AST , ALT , LDH , GGT , ALKPHOS , LABGGT , BILITOT , BILIDIR , AMMONIA , AMYLASE , LIPASE , LACTATE , CHOL , HDL , LDLCHOLESTEROL , CHOLHDLRATIO , TRIG , VLDL , DWS16NV , PHENYTOIN , PHENYF , URICACID , POCGLU in the last 72 hours. ABG:No results found for: POCPH , PHART , PH , POCPCO2 , BIQ0HFR , PCO2 , POCPO2 , PO2ART , PO2 , POCHCO3 , SJK0SYM , HCO3 , NBEA , PBEA , BEART , BE , THGBART , THB , SYJ0VAG , OKCT1GVN , T4TPFCEY , O2SAT , FIO2 No results found [...] planning-->POA , placement pending [][] -[facility] reoprted they would allow patient to return [...] Physician Progress Note Patient - Elizabeth Hull [place] Date of Admission - 04/21/2023 2:29 PM Date of Evaluation - 04/22/2023 Room and Bed Number - 3002/3002-01 Hospital Day - 1 Cc- pe SUBJECTIVE: OVERNIGHT EVENTS: Denied shortness of breath No acute events reported overnight. INR - 2.4 Brief History: Patient, 57-year-old female, transferred from [facility] facility where she was found to have saddle pulmonary embolism. Patient recently underwent right total knee replacement 2 weeks ago at [facility]. Yesterday, patient was feeling dizzy and lightheaded. When she arrived to ED she was reporting chest pressure. She was also found to be in acute hypoxic respiratory failure, put on nasal cannula. Her CT PE was done which showed saddle pulmonary embolism. Considering her acute condition, she was transferred to [place] for further evaluation management. Vascular surgery has [...] Date 04/22/23 0000 - 04/22/23 2359 Shift [id number] 6112-3788 9250-9226 24 Hour Total INTAKE I.V.(mL/kg) 81.9(0.8) 81.9(0.8) [...] Date 04/27/23 0000 - 04/27/23 2359 Shift [id number] 9788-8336 7837-9897 24 Hour Total INTAKE P.O.(mL/kg/hr) 400(0.5) 400 [...] NEGATIVE No results for input(s): PHART , JCG7NPU , PO2ART in the last 72 hours. [...] :INR today 2.4 We will sign off [facility] Internal Medicine Residency Program, PGY - 3 [place], [place] Attending Physician Statement I have discussed [...] this chart was generated using voice recognition [employer] dictation software. Although every effort was made to ensure the accuracy of this automated pairer odds, some errors in pairer odds may have occurred. * Kareem Bailey RCP - 04/26/2023 11:40 PM EST PATIENT REFUSES TO WEAR BIPAP [x] Risks and benefits explained to patient [x] Patient refuses to wear Bipap stating pt awake, not ready to sleep, unsure about wearing [x] Patient verbalizes understanding of information presented. * Nadia Mcodnald MD - 04/26/2023 4:00 PM EST Images [...] Total knee arthroplasty (Right). Medications: Reviewed in [facility] including carbamazepine Allergies: Dilantin [phenytoin] Social History: [...] Date Noted Acute deep vein thrombosis (DVT) ([facility]) [I82.409] 04/22/2023 Obesity (BMI 30.0-34.9) [E66.9] 04/22/2023 Acute hypoxic respiratory failure ([facility]) [J96.01] 04/22/2023 Seizure disorder ([facility]) [G40.909] 04/22/2023 Syncope [R55] 04/22/2023 Acute saddle pulmonary embolism without acute cor pulmonale ([facility]) [I26.92] 04/21/2023 IMPRESSION: Acute DVT/pulmonary embolism, provoked [...] an outpatient Nadia Lund MD [facility] This note is created [...] contextual diversion. * Sourav Mak, [facility] - 04/26/2023 12:40 PM EST Pharmacy Note [...] Physician Progress Note Patient - Elizabeth Hull [place] Date of Admission - 04/21/2023 2:29 PM Date of Evaluation - 04/22/2023 Room and Bed Number - 3002/3002-01 Hospital Day - 1 Cc- pe SUBJECTIVE: OVERNIGHT EVENTS: No acute events reported overnight. Inr - 1.9 Brief History: Patient, 57-year-old female, transferred from [facility] facility where she was found to have saddle pulmonary embolism. Patient recently underwent right total knee replacement 2 weeks ago at [facility]. Yesterday, patient was feeling dizzy and lightheaded. When she arrived to ED she was reporting chest pressure. She was also found to be in acute hypoxic respiratory failure, put on nasal cannula. Her CT PE was done which showed saddle pulmonary embolism. Considering her acute condition, she was transferred to [place] for further evaluation management. Vascular surgery has [...] OBJECTIVE: Date 04/22/23 - 04/22/23 2359 Shift [id number] 7037-6987 8323-0773 24 Hour Total INTAKE I.V.(mL/kg) 81.9(0.8) 81.9(0.8) [...] [Urine:1250] Date 04/26/23 - 04/26/23 235 Shift [id number] 6141-8879 9644-6571 24 Hour Total INTAKE P.O.(mL/kg/hr) 240(0.3) 240 [...] KETONESU No results for input(s): PHART , BVF7ICV , PO2ART in the last 72 hours. [...] from the original note were not included. [facility] Office: [phone] Reggie Barrera DO, Darin Forman DO, Werner [...] Leticia Zuniga, RUDDY,Kim Hammer, ANY, Rebekah Vásquez, PHOTOSTAT OPERATOR, Steph Ly, PHOTOSTAT OPERATOR, Maryanne Oh, PHOTOSTAT OPERATOR, Laly Navarro, PHOTOSTAT OPERATOR, Jennifer Souza PA-C, Desi Gann PA-C, Nidia Montgomery, PHOTOSTAT OPERATOR, Palmira Gonzales, DEEPTI, Valery Gary, PHOTOSTAT OPERATOR, Margoth Ackerman, PHOTOSTAT OPERATOR, Ricarda Shelby, PHOTOSTAT OPERATOR [facility] IN-PATIENT SERVICE [facility] Progress Note 04/26/2023 9:07 AM Name: Elizabeth Sánchez Acct: [id number] Room: [address] [place] [address] Day: 5 Admit Date: 04/21/2023 2:29 PM [...] 57 y.o. with presented as transfer [place] with 2d of sob, syncope.S [...] , PHART , PH , POCPCO2 , SGH0CHU , PCO2 , POCPO2 , PO2ART , PO2 , POCHCO3 , YOK8NPX , HCO3 , NBEA , PBEA , BEART , BE , THGBART , THB , XWA0HHK , QKQF7OIM , A2ECCYFJ , O2SAT , FIO2 No results found [...] planning-->POA , placement pending [][] -[facility] reoprted they would allow patient to return [...] from the original note were not included. [facility] Office: [phone] Reggie Barrera DO, Darin Forman DO, Werner [...] Leticia Zuniga DNP,Kim Hammer CNP, Rebekah Vásquez, PHOTOSTAT OPERATOR, Steph Ly, PHOTOSTAT OPERATOR, Maryanne Oh, PHOTOSTAT OPERATOR, Laly Navarro, PHOTOSTAT OPERATOR, SHAY HdzC, SHAY GlaserC, Nidia Montgomery, PHOTOSTAT OPERATOR, Palmira Gonzales, PAINTER TUMBLING BARREL, Valery Gary, PHOTOSTAT OPERATOR, Margoth Ackerman, PHOTOSTAT OPERATOR, Ricarda Shelby, PHOTOSTAT OPERATOR [facility] IN-PATIENT SERVICE [facility] Progress Note 04/25/2023 7:37 PM Name: Elizabeth Sánchez Acct: [id number] Room: [address] [place] [address] Day: 4 Admit Date: 04/21/2023 2:29 PM [...] , PHART , PH , POCPCO2 , ZWG8WZH , PCO2 , POCPO2 , PO2ART , PO2 , POCHCO3 , RRJ4MFQ , HCO3 , NBEA , PBEA , BEART , BE , THGBART , THB , AMI9YSN , LUUH5IHK , Y6DKEHSN , O2SAT , FIO2 No results found [...] Total knee arthroplasty (Right). Medications: Reviewed in [facility] including carbamazepine Allergies: Dilantin [phenytoin] Social History: [...] an outpatient Nadia Lund MD [facility] This note is created [...] 04/25/2023 3:55 PM EST Occupational Therapy Facility/Department: [facility] RENAL[facility]MED SURG Occupational Therapy Initial Assessment Name: [...] Ambulation Assistance: Independent Transfer Assistance: Independent Active Cardiovascular Physician Assistant: No Patient's Cardiovascular Physician Assistant Info: sister in law Mode of Transportation: Car 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 Leisure & Hobbies: playing with cat, goes to [employer] on [employer] Objective SpO2: 95 % O2 Device: Nasal [...] Additional Comments: Pt finished lunch right before senior technical writer entered room while supine with HOB elevated, pt transferred to EOB and doffed/donned R sock by bending at torso despite senior technical writer bringing sock-aid/tram inspector, pt transferred to recliner, pt demo'd good [...] 04/25/2023 2:13 PM EST Physical Therapy Facility/Department: [facility]MED SURG Physical Therapy Initial Assessment Name: [...] restrictions: Up with assist , recent TKA, LOBO hose, or Amanda wraps (nursing to address) [...] Ambulation Assistance: Independent Transfer Assistance: Independent Active Cardiovascular Physician Assistant: No Patient's Cardiovascular Physician Assistant Info: sister in law Mode of Transportation: Car 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 Leisure & Hobbies: playing with cat, goes to [employer] on [employer], [employer] Vision/Hearing Vision Vision: Impaired Vision Exceptions: Wears [...] taken due to post procedure grion site [facility] Basic Mobility - Inpatient How much help [...] 3-5 steps with a railing?: A Little [facility] Inpatient Mobility Raw Score : 21 [facility] Inpatient T-Scale Score : 50.25 Mobility Inpatient [facility] 0-100% Score: 28.97 Mobility Inpatient [facility] G-Code Modifier : CJ Goals Short [...] Total knee arthroplasty (Right). Medications: Reviewed in [facility] including carbamazepine Allergies: Dilantin [phenytoin] Social History: [...] an outpatient Nadia Lund MD [facility] This note is created [...] contextual diversion. * Darryn Michelle [facility] - 04/24/2023 12:51 PM EST Pharmacy Note [...] from the original note were not included. [facility] Office: [phone] Reggie Barrera DO, Darin Forman DO, Werner Parra DO, Ramses Fish DO, Wanda Montgomery MD, Rosa Elena Schwartz MD, Vani Hsu MD, Kaite Stallings MD, Narinder Maki MD, Katerina Christy [...] Brooke MD, Isaak Padilla MD, Lissette Rodriguez, PHOTOSTAT OPERATOR, Elizabeth Bryant, PHOTOSTAT OPERATOR, Tino Lr, PHOTOSTAT OPERATOR, Leticia Zuniga, [facility],Kim Hammer, PHOTOSTAT OPERATOR, Rebekah Vásquez, PHOTOSTAT OPERATOR, Steph Ly, PHOTOSTAT OPERATOR, Maryanne Oh, PHOTOSTAT OPERATOR, Laly Navarro, PHOTOSTAT OPERATOR, Jennifer Souza PATylerC, Desi Gann PATylerC, Nidia Montgomery, PHOTOSTAT OPERATOR, Palmira Gonzales, PAINTER TUMBLING BARREL, Valery Gary, PHOTOSTAT OPERATOR, Margoth Ackerman, PHOTOSTAT OPERATOR, Ricarda Shelby, PHOTOSTAT OPERATOR [facility] IN-PATIENT SERVICE [facility] Progress Note 04/24/2023 7:56 AM Name: Elizabeth Sánchez Acct: [id number] Room: [address] [place] [address] Day: 3 Admit Date: 04/21/2023 2:29 PM [...] , PHART , PH , POCPCO2 , MGW6GOQ , PCO2 , POCPO2 , PO2ART , PO2 , POCHCO3 , UJG4UWH , HCO3 , NBEA , PBEA , BEART , BE , THGBART , THB , PYR0PCV , WWOO2SVX , Q1TZDUZK , O2SAT , FIO2 No results found [...] -neurovascular checks * Sourav Mak [facility] - 04/23/2023 3:56 PM EST Pharmacy Note [...] from the original note were not included. [facility] Office: [phone] Reggie Barrera DO, Darin Forman DO, Werner [...] Padilla MD, Lissette Rodriguez, ANY, Elizabeth Bryant, PHOTOSTAT OPERATOR, Tino Lr, PHOTOSTAT OPERATOR, Leticia Zuniga, RUDDY,Kim Hammer, PHOTOSTAT OPERATOR, Rebekah Vásquez, PHOTOSTAT OPERATOR, Steph Ly PHOTOSTAT OPERATOR, Maryanne Oh, PHOTOSTAT OPERATOR, Laly Navarro, PHOTOSTAT OPERATOR, Jennifer Souza, PA-C, Desi Gann PA-C, Nidia Montgomery, PHOTOSTAT OPERATOR, Palmira Gonzales, PAINTER TUMBLING BARREL, Valery Gary, PHOTOSTAT OPERATOR, Margoth Ackerman, PHOTOSTAT OPERATOR, Ricarda Shelby, PHOTOSTAT OPERATOR [facility] IN-PATIENT SERVICE [facility] CONSULTATION / HISTORY AND PHYSICAL EXAMINATION Date: 04/23/2023 Patient name: Elizabeth Sánchez Date of admission: 04/21/2023 2:29 PM Account: [id number] Date of : 1965 PCP: No primary care provider on file. Room: [address] [place] [address] Code Status: Full Code Physician Requesting Consult: [...] THROMBECTOMY performed by Luisito Pinzon MD at [facility] Medications Prior to Admission: Prior to Admission [...] cm2 LVOT SV 54.0 ml LA Minor Blackwell 5.0 cm LA Major Blackwell 5.8 cm LA Area 2C 14.4 cm2 [...] 04/21/2023 Yes Acute deep vein thrombosis (DVT) ([facility]) 04/22/2023 Yes Obesity (BMI 30.0-34.9) 04/22/2023 Yes [...] recs Brother is POA Came from [place] but lives at home Madhav Cunningham - [...] THROMBECTOMY performed by Luisito Pinzon MD at [facility] Family History: Family History Problem Relation Age [...] for outpatient follow up in 1 month. [facility] [place] O: C: Email: [email or web address] * Vinay Shelton MD - 04/22/2023 2:39 PM EST Critical care team - Resident sign-out to medicine service Date and time: 04/22/2023 2:40 PM Patient's name: Elizabeth Sánchez Patient's account/billing number: [id number] Patient's Date of : 1965 Age: 57 [...] resident Department of Internal Medicine/ Critical care [facility]) 04/22/2023, 2:40 PM * Keyon Maki DO [...] to transfer to step down unit today. [facility] [place] [facility]: C: Email: [email or web address] * Abhinav Gonzales MD - 04/22/2023 7:06 [...] total knee replacement 2 weeks ago at [facility]. Yesterday, patient was feeling dizzy and lightheaded. When she arrived to ED she was reporting chest pressure. She was also found to be in acute hypoxic respiratory failure, put on nasal cannula. Her CT PE was done which showed saddle pulmonary embolism. Considering her acute condition, she was transferred to [place] for further evaluation management. Vascular surgery has [...] ml Date 04/22/23 - 04/22/23 2359 Shift [id number] 4000-8877 3437-1759 24 Hour Total INTAKE I.V.(mL/kg) 81.9(0.8) 81.9(0.8) [...] results found for: PHART , PH , TMS6NNB , PCO2 , PO2ART , PO2 , JYG0DCP , HCO3 , BEART , BE , THGBART , THB , NSP5KKN , T3CKTOWX , O2SAT , FIO2 DATA: Complete Blood [...] PROPHYLAXIS: Stress ulcer: [x] PPI Agent [] H1Jkfab [] Sucralfate [] Other: VTE: [] Enoxaparin [...] Hull MD Internal Medicine Resident, PGY- 2 [place], [place]. 7:07 AM This note is created [...] this chart was generated using voice recognition [employer] dictation software. Although every effort was made to ensure the accuracy of this automated pairer odds, some errors in pairer odds may have occurred. documented [facility] course Narrative* Ismael Reynolds MD - [...] 57 y.o. with presented as transfer [place] [facility] [place] [place] with 2d of sob, syncope.S [...] Surgeries/procedures Performed: Treatments: Procedures Discharge Plan/Disposition: To [facility]/Incidental Findings Requiring Follow Up: Patient Instructions: [...] and follow up. 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 No Past Surgical History: Past Surgical History: Procedure Laterality Date TOTAL KNEE ARTHROPLASTY Right VASCULAR SURGERY N/A 04/21/2023 INARI- MECHANICAL THROMBECTOMY performed by Luisito Pinzon MD at [facility] Immunization History: There is no immunization history on file for this patient. Active Problems: Patient Active Problem List Diagnosis Code Acute saddle pulmonary embolism without acute cor pulmonale ([facility]) I26.92 Acute deep vein thrombosis (DVT) ([facility]) I82.409 Obesity (BMI 30.0-34.9) E66.9 Acute hypoxic respiratory failure ([facility]) J96.01 Seizure disorder ([facility]) G40.909 Peripheral venous insufficiency I87.2 Syncope R55 [...] Assisted Dressing Assisted Toileting Assisted Feeding Independent Legal Coordinator Assisted Med Delivery whole Wound Care Documentation [...] applicable) Name: Address: Dialysis Schedule: Phone: Fax: Charge Hand/Senior Nuclear Medicine Technologist signature: PHYSICIAN SECTION Prognosis: Fair Condition at [...] the diagnosis listed and that she requires [facility] Facility for less 30 days. Update Admission H&P: No change in H&P PHYSICIAN SIGNATURE: documented in this encounterB[facility] Evaluation note* Encounter Date Diagnosis Assessment Notes Treatment Notes Treatment Clinical Notes Mar, Status post right knee replacement (ICD-10 - Z96.651) Reviewed OARRS report. Percocet refilled last week. Skilled bed. Receiving PT. Mar, Seizure disorder (ICD-10 - G40.909) Reviewed med prescribed by GUILLERMO. Updated medication list. FOllowup w Neurology as scheduled. [employer] Other 01-18-2024 NotePatient: ELIZABETH SÁNCHEZ Age: 57 years Sex: Female : 1965 Associated Diagnoses: None Author: Nola Zuniga DO Results Review General results Discharge Information Discharge Summary Information: Admit Date/Time: 04/05/23 06:49 Discharge Date/Time: 04/08/23 07:31 Admitting Physician: Nloa Zuniga DO Referring Physician for Admission: Nola [...] Daily, 0 Refill(s) potassium chloride (Potassium Chloride (Ubm-Rlnd-Dlc 10) 10 mEq oral tablet, extended release) 10 mEq, 1 tab(s), Oral, Daily, 0 Refill(s) sertraline (sertraline 25 mg Tab) 25 mg, 1 tab(s), Oral, Daily, 0 Refill(s) Stable course. D/C [facility]. ASA 325mg 4 weeks for DVTp. Mepilex. Reg diet. F/u 4 weeks.[facility] HospitalComment on above:Result Comment: Electronically Signed By: Nola Zuniga DO\.br\Date and Time Signed: 04/08/23 07:32 [id number] NotePROGRESS NOTE: 04/07/2022 Postoperative day #2 orthopedic [...] The patient will be going to the [facility] either this evening or when room is available. She has then plans to be discharged home after the recovery period through the [facility]. Will seeher in the office with Dr. Zuniga. Eris Hobson PA-C (For Nola Zuniga D.O.) ls Dictated: 04/07/2023 [id number] Transcribed: 04/07/2023[facility] HospitalComment on above:Result Comment: Electronically Signed By: Nola Zuniga DO\.br\Date and Time Signed: 04/07/23 13:17 [id number] NoteReason for Consultation Medical management. History of [...] mg oral tablet, See Instructions Potassium Chloride (Oqr-Kxii-Oaf 10) 10 mEq oral tablet, extended release, 10 mEq= 1 tab(s), Oral, Daily sertraline 25 mg Tab, 25 mg= 1 tab(s), Oral, Daily Tegretol XR 200 mg oral tablet, extended release, 200 mg= 1 tab(s), Oral, TID Allergies Dilantin (Rash) Socia (more content not included)...[facility] HospitalComment on above: Result Comment: Electronically Signed By: Radha SHIRLEY\.br\Date and Time Signed: 04/05/23 16:47 EST\.br\Electronically Co-Signed By: Lincoln Hammond DO\.br\Date and Time Co-Signed: 04/06/23 07:11 [id number] NotePT Evaluation completed with an A PAC [...] follow daily with [facility] [id number] [facility]01-27-2023 NotePROCEDURE: XR KNEE RT 1_2 V HISTORY: Pain of right knee joint since falling 3 weeks ago COMPARISON: None. FINDINGS: BONES:Complete loss of medial joint space with apfm-sh-vqzb articulation. Mild-moderate narrowing of lateral compartment and anterior compartment. Prominent periarticular degenerative osteophytes. No fracture or dislocation. SOFT TISSUES:No visible soft tissue swelling. EFFUSION:None visible. OTHER: Negative. IMPRESSION: 1. No acute bone abnormality. 2. Marked degenerative joint disease. Electronically authenticated by: ARELI HOOD Date: 2022-04-17 07:37[facility]01-26-2023 Evaluation note* Encounter Date Diagnosis [...] alert system with a necklace if needed [employer] Other Evaluation + Plan note Future Appointments Appointment Date:04/05/2023 10:00:00 AM Scheduled Provider: Location:[facility] Appointment Type:Surgery FT Diagnostic Tests Pending * Urine Culture [facility]23 [facility] noteNo InformationNort reK[employer] Education Other Evaluation note* Diagnosis Acute saddle pulmonary [...] pulse documented in this encounter [facility] general Narrative - Reported* Type Description [...] Surgical History tonsillectomy Hospitalization History allergic reaction [employer] Other History general Narrative - Reported* Type [...] Surgical History tonsillectomy Hospitalization History allergic reaction [employer] Other Hospital course Narrative No data available for this section [facility] No data available for this section [facility] note No data available for this section [facility] Summary Purpose Family History No Family History [...] section and content) DATE CREATED AUTHOR 04/16/2021 [facility] DATE CREATED AUTHOR AUTHOR'S ORGANIZ ATION 07/29/2022 [facility] DATE CREATED AUTHOR AUTHOR'S ORGANIZ ATION 03/19/2023 [facility] dical Specialists EPIC DATE CREATED AUTHOR AUTHOR'S ORGANIZ ATION 04/29/2023 [facility] DATE CREATED AUTHOR AUTHOR'S ORGANIZ ATION 05/02/2023 [facility] REASON FOR VISIT (unrecogniz ed section and content) INR Reason Comments Shortness of Breath Loss of Consciousness [facility] - s/p R knee replacementUpdate Med Listcontact personmessagerefill for 90 daysC[facility] Care team informatio n (unrecognized section and content) Personnel Name: CASSIE LORENZ MD Address: Address: [address] [place] [address] Ordered Prescriptions (unrec ognized section and content) [...] RN - Reason: Nausea)2026 (Given - Provider: Kza Bravo RN) 0920 (Given - Provider: Brittni [...] Kaz Bravo RN) 0609 (Given - Provider: Taira Mayo RN) sertraline (ZOLOFT) tablet 25 mg [...] be used. 0904 (Given - Provider: Faith Kingston RN) 1207 (Given - Provider: Brittni Living[place], [...] BE BASED ON THE PRIMARY CLINICAL RECORDS. [employer] [facility]. provides no warranty or guarantee of the accuracy or completeness of information in this document.
--- OUTSIDE RECORDS SUMMARY | 2023-05-15 16:21 | XMS_ITS | CCD ---
Author Name Unknown Address [id number] [place] [address] Organization [facility] Care Team Providers Care Electrician Elevator Maintenance Name Role Phone Cassie Lorenz Unavailable GERDA, [...] Facility (15 sources) diphenhydrAMINE Drug Allergy Unknown Herrenschmiede Other (17 sources) Phenytoin; Translations: [phenytoin] Drug Allergy 04-21-19 24 Unknown, Rash [facility] (15 sources) Seasonal allergy Propensity to adverse reactions Unknown [facility] Other (3 sources) Phenytoin; Translations: [Dilantin] Drug Allergy 05-26-[address] [facility] Repository Medications Current Medications Medication Drug [...] daily 0 Active take 1 tablet by [facility] twice daily at mealtime Oyster Calcium 500 [...] MG Orally Active take 1 capsule by [facility] twice daily cefTRIAXone (ROCEPHIN) 1000 mg in [...] for 90 Active take 1 capsule by [facility] every twenty-four hours Vitamin D3 50 MCG (1999 UT) 1 capsule Or ally Once a day Active ciprofloxacin 500 mg oral tablet (8 sources) Quinolone Antimicrobial Start: 03-13-2015 take 1 tablet by mouth every twelve hours docusate sodium 100 mg oral capsule (8 sources) Start: 04-22-2023 docusate sodiu m (COLACE) capsule 100 mg take 1 capsule by [facility] every twenty-four hours Colace 100 MG 1 capsule as needed Orally Once a day Active famotidine 20 mg oral tablet (17 sources) Histamine-2 Receptor Antagonist Start: 03-17-2023 End: 04-27-2023 take 1 tablet by mouth twice daily famotidine 20 mg Tab 20 mg = 1 tab(s), Oral, BID, Refills(s) 0, Control of stomach acid Start Date: 03/17/23 Status: Ordered take 1 tablet by [facility] every twenty-four hours Famotidine 20 MG 1 [...] tablet by pepper once daily Potassium Chloride (Mab-Lcyd-Jqa 10) 10 mEq oral tablet, extended release 10 mEq = 1 tab(s), Oral, Daily, Refills(s) 0, Prophylaxis Start Date: 03/17/23 Status: Ordered take 1 tablet by pepper once daily Potassium Chloride ER 10 MEQ TAKE 1 TABLET BY MOUTH EVERY DAY for 90 Active take 1 capsule by mo [facility] once daily potassium chloride (MICRO-K) 10 MEQ [...] (SOLU-MEDROL) injection 40 mg polyethylene glycol [id number] mg powder for oral solution (1 source) [...] Reference Range Facility Discharge Instructionson Discharge Instructions [id number]#[id number] IFF Normal [facility] Transfer Documentson 024 Transfer Documents [id number]#1.00T IFF Normal [facility] Anti-Xa, Unfractionated Hepa rinon 04-28-2023 Anti-XA Unfrac Heparin <0.10 IU/L [facility] Anion gap [Moles/Vol] 9 mmol/L 9 - 17 mmol/L [facility] Calcium [Mass/Vol] 8.7 mg/dL 8.6 - 10. 4 mg/dL [facility] Chloride [Moles/Vol] 99 mmol/L 98 - 10 7 mmol/L [facility] CO2 [Moles/Vol] 28 mmol/L 20 - 31 mmol/L [facility] Creatinine [Mass/Vol] 0.5 mg/dL 0.5 - 0.9 mg/dL [facility] GFR/1.73 sq M.predicted MDRD (S/P/Bld) [Vol rate/Area] - PINF [facility] Comment on above: These results are not [...] 119 mg/dL High 70 - 99 mg/dL [facility] Interpretation and review of laboratory results Abnormal [facility] Potassium [Moles/Vol] 4.1 mmol/L 3.7 - 5.3 mmol/L [facility] Sodium [Moles/Vol] 136 mmol/L 135 - 144 mmol/L [facility] Urea nitrogen [Mass/Vol] 13 mg/dL 6 - 20 mg/dL [facility] Basic Metabolic Profon 04-28 Anion gap [Moles/Vol] 9 mmol/L Normal 9-17 [facility] Comment on above: Performed By: #### B MARK FORD, PT #### [facility] [address] [place] [address] Prosthodontist/Educator: Romel Clemons MD Calcium [Mass/Vol] 8.7 mg/dL Normal 8.6-10.4 [facility] Comment on above: Performed By: #### B MARK FORD, PT #### [facility] [address] [place] [address] Prosthodontist/Educator: Romel Clemons MD Chloride [Moles/Vol] 99 mmol/L Normal 98-107 [facility] Comment on above: Performed By: #### B MARK FORD, PT #### [facility] [address] [place] [address] Prosthodontist/Educator: Romel Clemons MD CO2 [Moles/Vol] 28 mmol/L Normal 20-31 [facility] Comment on above: Performed By: #### B MARK FORD, PT #### [facility] [address] [place] [address] Prosthodontist/Educator: Romel Clemons MD Creatinine [Mass/Vol] 0.5 mg/dL Normal 0.5-0.9 [facility] Comment on above: Performed By: #### B MARK FORD, PT #### [facility] [address] [place] [address] Prosthodontist/Educator: Romel Clemons MD GFR/1.73 sq M.predicted among non-blacks MDRD (S/P/Bld) [Vol rate/Area] mL/min/{1.73_m2} Normal >60 [facility] Comment on above: Result Comment: These [...] By: #### B MARK FORD, PT #### [facility] [address] [place] [address] Prosthodontist/Educator: Romel Cleomns MD Glucose [Mass/Vol] 119 mg/dL High 70-99 [facility] Comment on above: Performed By: #### B MARK FORD, PT #### [facility] [address] [place] [address] Prosthodontist/Educator: Romel Clemons MD Potassium [Moles/Vol] 4.1 mmol/L Normal 3.7-5.3 [facility] Comment on above: Performed By: #### B MARK FORD, PT #### [facility] [address] [place] [address] Prosthodontist/Educator: Romel Clemons MD Sodium [Moles/Vol] 136 mmol/L Normal 135-144 [facility] Comment on above: Performed By: #### B MARK FORD, PT #### [facility] [address] [place] [address] Prosthodontist/Educator: Romel Clemons MD Urea nitrogen [Mass/Vol] 13 mg/dL Normal 6-20 [facility] Comment on above: Performed By: #### B MARK FORD, PT #### [facility] [address] [place] [address] Prosthodontist/Educator: Romel Clemons MD CBCon 04-28-2023 Erythrocyte distribution width (RBC) [Ratio] 13.9 % Normal 11.8-14.4 [facility] Comment on above: Performed By: #### B MARK FORD, PT #### [facility] [address] [place] [address] Prosthodontist/Educator: Romel Clemons MD Hematocrit (Bld) [Volume fraction] 30.1 % Low 36.3-47.1 [facility] Comment on above: Performed By: #### B MARK FORD, PT #### [facility] [address] [place] [address] Prosthodontist/Educator: Romel Clemons MD Hemoglobin (Bld) [Mass/Vol] 9.5 g/dL Low 11.9-15.1 [facility] Comment on above: Performed By: #### B MARK FORD, PT #### [facility] [address] [place] [address] Prosthodontist/Educator: Romel Clemons MD MCH (RBC) [Entitic mass] 30.1 pg Normal 25.2-33.5 [facility] Comment on above: Performed By: #### B MARK FORD, PT #### [facility] [address] [place] [address] Prosthodontist/Educator: Romel Clemons MD MCHC (RBC) [Mass/Vol] 31.6 g/dL Normal 28.4-34.8 [facility] Comment on above: Performed By: #### B MARK FORD, PT #### [facility] [address] [place] [address] Prosthodontist/Educator: Romel Clemons MD MCV (RBC) [Entitic vol] 95.3 fL Normal 82.6-102.9 [facility] Comment on above: Performed By: #### B MARK FORD, PT #### [facility] [address] [place] [address] Prosthodontist/Educator: Romel Clemons MD NRBC Automated 0.0 per 100 WBC Normal 0.0 [facility] Comment on above: Performed By: #### B MARK FORD, PT #### [facility] [address] [place] [address] Prosthodontist/Educator: Romel Clemons MD Platelet mean volume (Bld) [Entitic vol] 9.4 fL Normal 8.1-13.5 [facility] Comment on above: Performed By: #### B MARK FORD, PT #### [address] [address] Prosthodontist/Educator: Romel Clemons MD Platelets (Bld) [#/Vol] 340 10*3/uL Normal 138-453 [facility] Comment on above: Performed By: #### B MARK FORD, PT #### [address] [address] Prosthodontist/Educator: Romel Clemons MD RBC (Bld) [#/Vol] 3.16 10*6/uL Low 3.95-5.11 [facility] Comment on above: Performed By: #### B MARK FORD, PT #### [address] [address] Prosthodontist/Educator: Romel Clemons MD WBC (Bld) [#/Vol] 8.4 10*3/uL Normal 3.5-11.3 [facility] Comment on above: Performed By: #### B MARK FORD, PT #### [address] [address] Prosthodontist/Educator: Romel Clemons MD Erythrocyte distribution width (RBC) [Ratio] 13.9 % 11.8 - 14.4 % [facility] Hematocrit (Bld) [Volume fraction] 30.1 % Low 36.3 - 47.1 % [facility] Hemoglobin (Bld) [Mass/Vol] 9.5 g/dL Low 11.9 - 15.1 g/dL [facility] Interpretation and review of laboratory results Abnormal [facility] MCH (RBC) [Entitic mass] 30.1 pg 25.2 - 33.5 pg [facility] MCHC (RBC) [Mass/Vol] 31.6 g/dL 28.4 - 34.8 g/dL [facility] MCV (RBC) [Entitic vol] 95.3 fL 82.6 - 102.9 fL [facility] Nucleated RBC/100 WBC (Bld) [Ratio] 0.0 % 0.0 per 100 WBC [facility] Platelet mean volume (Bld) [Entitic vol] 9.4 fL 8.1 - 13.5 fL [facility] Platelets (Bld) [#/Vol] 340 10*3/uL [facility] RBC (Bld) [#/Vol] 3.16 10*6/uL Low 3.95 - 5.1 1 m/uL [facility] WBC other (Bld) [#/Vol] 8.4 [facility] Heparin Anti-Xaon 04-28-2023 Heparin Anti-Xa <0.10 Normal [facility] Comment on above: Performed By: #### B MP, CDP, PT #### [facility] [place] [address] Prosthodontist/Educator: Romel Clemons MD No Panel Informationon 04-28 [facility] PTon 04-28-2023 INR Coag (PPP) [Relative time] 2.7 {INR} Normal [facility] Comment on above: Result Comment: Therapeutic Range: Moderate Anticoagulant Intensity: INR = 2.0-3.0 High Anticoagulant Intensity: INR = 2.5-3.5 Performed By: #### B MP, CDP, PT #### [facility] [address] [place], [place] [phone] Prosthodontist/Educator: Romel Clemons MD PT Coag (PPP) [Time] 28.6 s High 11.7-14.9 [facility] Comment on above: Performed By: #### B MP, CDP, PT #### [facility] [address] [place], [place] [phone] Prosthodontist/Educator: Romel Clemons MD Protime-INRon 04-28-2023 INR Coag (PPP) [Relative time] 2.7 {INR} [facility] Comment on above: Therapeutic Range: Moderate Anticoagulant Intensity: INR = 2.0-3.0 High Anticoagulant Intensity: INR = 2.5-3.5 Interpretation and review of laboratory results Abnormal [facility] PT Coag (PPP) [Time] 28.6 s High [facility] Anti-Xa, Unfractionated Hepa rinon 04-27-2023 Anti-XA Unfrac Heparin <0.10 IU/L [facility] Anti-XA Unfrac Heparin <0.10 IU/L [facility] Anti-XA Unfrac Heparin 0.51 IU/L [facility] Anti-XA Unfrac Heparin 1.43 IU/L [facility] Basic Metabolic Panelon Anion gap [Moles/Vol] 10 mmol/L 9 - 17 mmol/L [facility] Calcium [Mass/Vol] 9.0 mg/dL 8.6 - 10. 4 mg/dL [facility] Chloride [Moles/Vol] 103 mmol/L 98 - 10 7 mmol/L [facility] CO2 [Moles/Vol] 25 mmol/L 20 - 31 mmol/L [facility] Creatinine [Mass/Vol] 0.5 mg/dL 0.5 - 0.9 mg/dL [facility] GFR/1.73 sq M.predicted MDRD (S/P/Bld) [Vol rate/Area] - PINF [facility] Comment on above: These results are not [...] 132 mg/dL High 70 - 99 mg/dL [facility] Interpretation and review of laboratory results Abnormal [facility] Potassium [Moles/Vol] 4.4 mmol/L 3.7 - 5.3 mmol/L [facility] Sodium [Moles/Vol] 138 mmol/L 135 - 144 mmol/L [facility] Urea nitrogen [Mass/Vol] 12 mg/dL 6 - 20 mg/dL [facility] Basic Metabolic Profon 04-27 Anion gap [Moles/Vol] 10 mmol/L Normal 9-17 [facility] Comment on above: Performed By: #### H EPXA, PT #### [facility] [address] [place] [address] Prosthodontist/Educator: Romel Clemons MD Calcium [Mass/Vol] 9.0 mg/dL Normal 8.6-10.4 [facility] Comment on above: Performed By: #### H EPXA, PT #### [facility] [address] [place], [place] [phone] Prosthodontist/Educator: Romel Clemons MD Chloride [Moles/Vol] 103 mmol/L Normal 98-107 [facility] Comment on above: Performed By: #### H EPXA, PT #### [facility] [address] [place] [address] [phone] Prosthodontist/Educator: Romel Clemons MD CO2 [Moles/Vol] 25 mmol/L Normal 20-31 [facility] Comment on above: Performed By: #### H EPXA, PT #### [facility] [address] [place] [address] Prosthodontist/Educator: Romel Clemons MD Creatinine [Mass/Vol] 0.5 mg/dL Normal 0.5-0.9 [facility] Comment on above: Performed By: #### H EPXA, PT #### [facility] [address] [place] [address] Prosthodontist/Educator: Romel Clemons MD GFR/1.73 sq M.predicted among non-blacks MDRD (S/P/Bld) [Vol rate/Area] mL/min/{1.73_m2} Normal >60 [facility] Comment on above: Result Comment: These [...] Performed By: #### H EPXA, PT #### [facility] [address] [place] [address] Prosthodontist/Educator: Romel Clemons MD Glucose [Mass/Vol] 132 mg/dL High 70-99 [facility] Comment on above: Performed By: #### H EPXA, PT #### [facility] [address] [place] [address] Prosthodontist/Educator: Romel Clemons MD Potassium [Moles/Vol] 4.4 mmol/L Normal 3.7-5.3 [facility] Comment on above: Performed By: #### H EPXA, PT #### [facility] [address] [place] [address] Prosthodontist/Educator: Romel Clemons MD Sodium [Moles/Vol] 138 mmol/L Normal 135-144 [facility] Comment on above: Performed By: #### H EPXA, PT #### [address] [address] Prosthodontist/Educator: Romel Clemons MD Urea nitrogen [Mass/Vol] 12 mg/dL Normal 6-20 [facility] Comment on above: Performed By: #### H EPXA, PT #### [address] [address] Prosthodontist/Educator: Romel Clemons MD Comp Metabolic Profon 2023 Albumin [Mass/Vol] 3.3 g/dL Low 3.5-5.2 [facility] Comment on above: Performed By: #### C P #### [address] [address] Prosthodontist/Educator: Romel Clemons MD Albumin/Glob Ratio 1.1 Normal 1.0-2.5 [facility] Comment on above: Performed By: #### C P #### [address] [address] Prosthodontist/Educator: Romel Clemons MD Alkaline Phos 108 U/L High 35-104 [facility] Comment on above: Performed By: #### C P #### [address] [address] Prosthodontist/Educator: Romel Clemons MD ALT [Catalytic activity/Vol] 19 U/L Normal 5-33 [facility] Comment on above: Performed By: #### C P #### [address] [address] Prosthodontist/Educator: Romel Clemons MD Anion gap [Moles/Vol] 9 mmol/L Normal 9-17 [facility] Comment on above: Performed By: #### C P #### [address] [address] Prosthodontist/Educator: Romel Clemons MD AST [Catalytic activity/Vol] 19 U/L Normal <32 [facility] Comment on above: Performed By: #### C P #### [address] [address] Prosthodontist/Educator: Romel Clemons MD Bilirubin [Mass/Vol] 0.2 mg/dL Low 0.3-1.2 [facility] Comment on above: Performed By: #### C P #### [address] [address] Prosthodontist/Educator: Romel Clemons MD Calcium [Mass/Vol] 9.0 mg/dL Normal 8.6-10.4 [facility] Comment on above: Performed By: #### C P #### [address] [address] Prosthodontist/Educator: Romel Clemons MD Chloride [Moles/Vol] 105 mmol/L Normal 98-107 [facility] Comment on above: Performed By: #### C P #### [address] [address] Prosthodontist/Educator: Romel Clemons MD CO2 [Moles/Vol] 26 mmol/L Normal 20-31 [facility] Comment on above: Performed By: #### C P #### [address] [address] Prosthodontist/Educator: Romel Clemons MD Creatinine [Mass/Vol] 0.7 mg/dL Normal 0.5-0.9 [facility] Comment on above: Performed By: #### C P #### [address] [address] Prosthodontist/Educator: Romel Clemons MD GFR/1.73 sq M.predicted among non-blacks MDRD (S/P/Bld) [Vol rate/Area] mL/min/{1.73_m2} Normal >60 [facility] Comment on above: Result Comment: These [...] secretion. Performed By: #### C P #### [address] [address] Prosthodontist/Educator: Romel Clemons MD Glucose [Mass/Vol] 115 mg/dL High 70-99 [facility] Comment on above: Performed By: #### C P #### [address] [address] Prosthodontist/Educator: Romel Clemons MD Potassium [Moles/Vol] 3.9 mmol/L Normal 3.7-5.3 [facility] Comment on above: Performed By: #### C P #### [address] [address] Prosthodontist/Educator: Romel Clemons MD Protein [Mass/Vol] 6.4 g/dL Normal 6.4-8.3 [facility] Comment on above: Performed By: #### C P #### [address] [address] Prosthodontist/Educator: Romel Clemons MD Sodium [Moles/Vol] 140 mmol/L Normal 135-144 [facility] Comment on above: Performed By: #### C P #### [address] [address] Prosthodontist/Educator: Romel Clemons MD Urea nitrogen [Mass/Vol] 12 mg/dL Normal 6-20 [facility] Comment on above: Performed By: #### C P #### [address] [address] Prosthodontist/Educator: Romel Clemons MD Comprehensive Metabolic Pane veronique 04-27-2023 Albumin [Mass/Vol] 3.3 g/dL Low 3.5 - 5.2 g/dL [facility] Albumin/Globulin [Mass ratio] 1.1 {ratio} 1.0 - 2.5 [facility] ALP [Catalytic activity/Vol] 108 U/L High 35 - 104 U/L [facility] ALT [Catalytic activity/Vol] 19 U/L 5 - 33 U/L [facility] Anion gap [Moles/Vol] 9 mmol/L 9 - 17 mmol/L [facility] AST [Catalytic activity/Vol] 19 U/L NINF - 32 U/L [facility] Bilirubin [Mass/Vol] 0.2 mg/dL Low 0.3 - 1 .2 mg/dL [facility] Calcium [Mass/Vol] 9.0 mg/dL 8.6 - 10. 4 mg/dL [facility] Chloride [Moles/Vol] 105 mmol/L 98 - 10 7 mmol/L [facility] CO2 [Moles/Vol] 26 mmol/L 20 - 31 mmol/L [facility] Creatinine [Mass/Vol] 0.7 mg/dL 0.5 - 0.9 mg/dL [facility] GFR/1.73 sq M.predicted MDRD (S/P/Bld) [Vol rate/Area] - PINF [facility] Comment on above: These results are not [...] 115 mg/dL High 70 - 99 mg/dL [facility] Interpretation and review of laboratory results Abnormal [facility] Potassium [Moles/Vol] 3.9 mmol/L 3.7 - 5.3 mmol/L [facility] Protein [Mass/Vol] 6.4 g/dL 6.4 - 8.3 g/dL [facility] Sodium [Moles/Vol] 140 mmol/L 135 - 144 mmol/L [facility] Urea nitrogen [Mass/Vol] 12 mg/dL 6 - 20 mg/dL [facility] Heparin Anti-Xaon 04-27-2023 Heparin Anti-Xa <0.10 Normal [facility] Comment on above: Performed By: #### B MARK FORD, PT #### [facility] [address] [place] [address] Prosthodontist/Educator: Romel Clemons MD Heparin Anti-Xa <0.10 [facility] Comment on above: Performed By: #### H EPXA #### [facility] [address] [place] [address] Prosthodontist/Educator: Romel Clemons MD Heparin Anti-Xa 0.51 IU/L [facility] Comment on above: Performed By: #### H EPXA, PT #### [facility] [address] [place] [address] Prosthodontist/Educator: Romel Clemons MD Heparin Anti-Xa 1.43 IU/L [facility] Comment on above: Performed By: #### B MARK FORD, PT #### [facility] [address] [place] [address] Prosthodontist/Educator: Romel Clemons MD No Panel Informationon 04-27 [facility] PTon 04-27-2023 INR Coag (PPP) [Relative time] 2.4 {INR} Normal [facility] Comment on above: Result Comment: Therapeutic Range: Moderate Anticoagulant Intensity: INR = 2.0-3.0 High Anticoagulant Intensity: INR = 2.5-3.5 Performed By: #### H EPXA, PT #### [facility] [address] [place] [address] Prosthodontist/Educator: Romel Clemons MD PT Coag (PPP) [Time] 26.0 s High 11.7-14.9 [facility] Comment on above: Performed By: #### H EPXA, PT #### [facility] [address] [place] [address] Prosthodontist/Educator: Romel Clemons MD Protime-INRon 04-27-2023 INR Coag (PPP) [Relative time] 2.4 {INR} [facility] Comment on above: Therapeutic Range: Moderate Anticoagulant Intensity: INR = 2.0-3.0 High Anticoagulant Intensity: INR = 2.5-3.5 Interpretation and review of laboratory results Abnormal [facility] PT Coag (PPP) [Time] 26.0 s High [facility] Vascular duplex lower extrem ity arteries left with ABIon 04-27-2023 Body surface area Derived from formula 2.29 m2 [facility] Left LYNDON mid PSV 87.5 cm/s [facility] Left FIVE ROLL REFINER BATCH MIXER prox PSV 116.0 cm/s [facility] Left FIVE ROLL REFINER BATCH MIXER tj ratio 0.85 [facility] [...] ratio 1.25 [facility] Left RESP THERAPIST mid PSV 98.8 cm/s [facility] [...] vein thrombosis in the left tibioperoneal trunk. [employer] Details A chung scale, color Doppler imaging and spectral Doppler analysis ultrasound was performed. During the study longitudinal and transverse views were obtained. Pulsed wave doppler was performed. [facility] CV CPACS [facility] [employer] Vascular lower arterial comp lete physiologic Doppler at reston 04-27-2023 Body surface area Derived from formula 2.29 m2 [facility] [employer] Left ESTEBAN 1.24 [facility] [employer] Left ankle BP 173 mmHg [facility] [employer] Left arm BP 139 mmHg [facility] [employer] Left dorsalis pedis BP 173 mmHg [facility] [employer] Left posterior tibial 173 mmHg [facility] [employer] Left TBI 0.91 [facility] [employer] Left toe pressure 127 mmHg [facility] [employer] Right ESTEBAN 1.30 [facility] [employer] Right ankle BP 175 mmHg [facility] [employer] Right dorsalis pedis BP 181 mmHg [facility] [employer] Right posterior tibial 175 mmHg [facility] [employer] Right TBI 1.27 [facility] [employer] Right toe pressure 177 mmHg [facility] [employer] Right side findings: Resting ESTEBAN is 1.30. Resting TBI is 1.27. Normal range. Left side findings: Resting ESTEBAN is 1.24. Resting TBI is 0.91. Normal range. [employer] Details Pulsed volume recording (PVR) and photo plethysmography was performed. [facility] CV CPACS [facility] Radiology Study observation (narrative) [facility] APTTon 04-26-2023 aPTT Coag (Bld) [Time] 43.5 s High 23.0-36.5 [facility] Comment on above: Result Comment: IV Heparin Therapy Range: 66.0-92.0 sec Performed By: #### H EPXA, PT #### [facility] [place] [id number] Prosthodontist/Educator: Romel Clemons MD aPTT Coag (Bld) [Time] 43.5 s High [facility] [facility] Comment on above: IV Heparin Therapy Range: 66.0-92.0 sec Interpretation and review of laboratory results Abnormal [facility] Anti-Xa, Unfractionated Hepa rinon 04-26-2023 Anti-XA Unfrac Heparin <0.10 IU/L [facility] Basic Metabolic Panelon Anion gap [Moles/Vol] 10 mmol/L 9 - 17 mmol/L [facility] Calcium [Mass/Vol] 8.7 mg/dL 8.6 - 10. 4 mg/dL [facility] Chloride [Moles/Vol] 101 mmol/L 98 - 10 7 mmol/L [facility] CO2 [Moles/Vol] 26 mmol/L 20 - 31 mmol/L [facility] Creatinine [Mass/Vol] 0.5 mg/dL 0.5 - 0.9 mg/dL [facility] GFR/1.73 sq M.predicted MDRD (S/P/Bld) [Vol rate/Area] - PINF [facility] Comment on above: These results are not [...] 131 mg/dL High 70 - 99 mg/dL [facility] Interpretation and review of laboratory results Abnormal [facility] Potassium [Moles/Vol] 4.2 mmol/L 3.7 - 5.3 mmol/L [facility] Sodium [Moles/Vol] 137 mmol/L 135 - 144 mmol/L [facility] Urea nitrogen [Mass/Vol] 10 mg/dL 6 - 20 mg/dL [facility] Basic Metabolic Profon 04-26 Anion gap [Moles/Vol] 10 mmol/L Normal 9-17 [facility] Comment on above: Performed By: #### B MARK FORD, PT #### [facility] [address] [place] [address] 40850 Prosthodontist/Educator: Romel Clemons MD Calcium [Mass/Vol] 8.7 mg/dL Normal 8.6-10.4 [facility] Comment on above: Performed By: #### B MARK FORD, PT #### [facility] [address] [place] [address] 20427 Prosthodontist/Educator: Romel Clemons MD Chloride [Moles/Vol] 101 mmol/L Normal 98-107 [facility] Comment on above: Performed By: #### B MARK FORD, PT #### [facility] [address] [place] [address] 02769 Prosthodontist/Educator: Romel Clemons MD CO2 [Moles/Vol] 26 mmol/L Normal 20-31 [facility] Comment on above: Performed By: #### B MARK FORD, PT #### [facility] [address] [place] [address] 71372 Prosthodontist/Educator: Romel Clemons MD Creatinine [Mass/Vol] 0.5 mg/dL Normal 0.5-0.9 [facility] Comment on above: Performed By: #### B MARK FORD, PT #### [facility] [address] [place] [address] 85801 Prosthodontist/Educator: Romel Clemons MD GFR/1.73 sq M.predicted among non-blacks MDRD (S/P/Bld) [Vol rate/Area] mL/min/{1.73_m2} Normal >60 [facility] Comment on above: Result Comment: These [...] By: #### B MARK FORD, PT #### [facility] [address] [place] [address] 91351 Prosthodontist/Educator: Romel Clemons MD Glucose [Mass/Vol] 131 mg/dL High 70-99 [facility] Comment on above: Performed By: #### B MARK FORD, PT #### [facility] [address] [place] [address] 84996 Prosthodontist/Educator: Romel Clemons MD Potassium [Moles/Vol] 4.2 mmol/L Normal 3.7-5.3 [facility] Comment on above: Performed By: #### B MARK FORD, PT #### [facility] [address] [place] [address] 36702 Prosthodontist/Educator: Romel lCemons MD Sodium [Moles/Vol] 137 mmol/L Normal 135-144 [facility] Comment on above: Performed By: #### B MARK FORD, PT #### [facility] [address] [place] [address] 33446 Prosthodontist/Educator: Romel Clemons MD Urea nitrogen [Mass/Vol] 10 mg/dL Normal 6-20 [facility] Comment on above: Performed By: #### B MP, CDP, PT #### [facility] [address] [place] [address] 37140 Prosthodontist/Educator: Romel Clemons MD Brain Natri. Peptideon 04-26 Natriuretic peptide B (Bld) [Mass/Vol] 6197 pg/mL High <300 [facility] Comment on above: Result Comment: An age-independent cutoff point of 300 pg/ml has a 98% negative predictive value excluding acute heart failure. Performed By: #### H EPXA, PT #### [facility] [address] [place] [address] 24206 Prosthodontist/Educator: Romel Clemons MD Brain Natriuretic Peptideon 04-26-2023 Interpretation and review of laboratory results Abnormal [facility] [employer] Natriuretic peptide B (Bld) [Mass/Vol] 6197 pg/mL High NINF - 300 pg/mL [facility] Comment on above: An age-independent cutoff point of 300 pg/ml has a 98% negative predictive value excluding acute heart failure. [facility] CBCon 04-26-2023 Erythrocyte distribution width (RBC) [Ratio] 13.8 % Normal 11.8-14.4 [facility] Comment on above: Performed By: #### H EPXA, PT #### [facility] [address] [place] [address] 34871 Prosthodontist/Educator: Romel Clemons MD Hematocrit (Bld) [Volume fraction] 34.0 % Low 36.3-47.1 [facility] Comment on above: Performed By: #### H EPXA, PT #### [facility] [address] [place] [address]93 Prosthodontist/Educator: Romel Clemons MD Hemoglobin (Bld) [Mass/Vol] 10.3 g/dL Low 11.9-15.1 [facility] Comment on above: Performed By: #### H EPXA, PT #### [facility] [address] [place] [address] 75892 Prosthodontist/Educator: Romel Clemons MD MCH (RBC) [Entitic mass] 30.0 pg Normal 25.2-33.5 [facility] Comment on above: Performed By: #### H EPXA, PT #### [address] [address] Prosthodontist/Educator: Romel Clemons MD MCHC (RBC) [Mass/Vol] 30.3 g/dL Normal 28.4-34.8 [facility] Comment on above: Performed By: #### H EPXA, PT #### [address] [address] Prosthodontist/Educator: Romel Clemons MD MCV (RBC) [Entitic vol] 99.1 fL Normal 82.6-102.9 [facility] Comment on above: Performed By: #### H EPXA, PT #### [address] [address] Prosthodontist/Educator: Romel Clemons MD NRBC Automated 0.0 per 100 WBC Normal 0.0 [facility] Comment on above: Performed By: #### H EPXA, PT #### [address] [address] Prosthodontist/Educator: Romel Clemons MD Platelet mean volume (Bld) [Entitic vol] 9.3 fL Normal 8.1-13.5 [facility] Comment on above: Performed By: #### H EPXA, PT #### [address] [address] Prosthodontist/Educator: Romel Clemons MD Platelets (Bld) [#/Vol] 328 10*3/uL Normal 138-453 [facility] Comment on above: Performed By: #### H EPXA, PT #### [address] [address] Prosthodontist/Educator: Romel Clemons MD RBC (Bld) [#/Vol] 3.43 10*6/uL Low 3.95-5.11 [facility] Comment on above: Performed By: #### H EPXA, PT #### [facility] [address] [place], [place] [phone] Prosthodontist/Educator: Romel Clemons MD WBC (Bld) [#/Vol] 8.9 10*3/uL Normal 3.5-11.3 [facility] Comment on above: Performed By: #### H EPXA, PT #### [facility] [address] [place] [address] Prosthodontist/Educator: Romel Clemons MD Erythrocyte distribution width (RBC) [Ratio] 13.8 % 11.8 - 14.4 % [facility] Hematocrit (Bld) [Volume fraction] 34.0 % Low 36.3 - 47.1 % [facility] Hemoglobin (Bld) [Mass/Vol] 10.3 g/dL Low 11.9 - 15.1 g/dL [facility] Interpretation and review of laboratory results Abnormal [facility] MCH (RBC) [Entitic mass] 30.0 pg 25.2 - 33.5 pg [facility] MCHC (RBC) [Mass/Vol] 30.3 g/dL 28.4 - 34.8 g/dL [facility] MCV (RBC) [Entitic vol] 99.1 fL 82.6 - 102.9 fL [facility] Nucleated RBC/100 WBC (Bld) [Ratio] 0.0 % 0.0 per 100 WBC [facility] Platelet mean volume (Bld) [Entitic vol] 9.3 fL 8.1 - 13.5 fL [facility] Platelets (Bld) [#/Vol] 328 10*3/uL [facility] RBC (Bld) [#/Vol] 3.43 10*6/uL Low 3.95 - 5.1 1 m/uL [facility] WBC other (Bld) [#/Vol] 8.9 [facility] CBC with Auto Differentialon 04-26-2023 Basophils (Bld) [#/Vol] [facility] Basophils/100 WBC (Bld) 0 % 0 - 2 % [facility] Eosinophils (Bld) [#/Vol] [facility] Eosinophils/100 WBC (Bld) 0 % Low 1 - 4 % [facility] Erythrocyte distribution width (RBC) [Ratio] 13.7 % 11.8 - 14.4 % [facility] Hematocrit (Bld) [Volume fraction] 31.3 % Low 36.3 - 47.1 % [facility] Hemoglobin (Bld) [Mass/Vol] 10.0 g/dL Low 11.9 - 15.1 g/dL [facility] Immature granulocytes (Bld) [#/Vol] 0.03 10*3/uL [facility] Immature granulocytes/100 WBC (Bld) 0 % 0 [facility] Interpretation and review of laboratory results Abnormal [facility] Lymphocytes/100 WBC (Bld) 13 % Low 24 - 43 % [facility] Lymphocytes/100 WBC (Bld) 1.01 % Low [facility] MCH (RBC) [Entitic mass] 30.5 pg 25.2 - 33.5 pg [facility] MCHC (RBC) [Mass/Vol] 31.9 g/dL 28.4 - 34.8 g/dL [facility] MCV (RBC) [Entitic vol] 95.4 fL 82.6 - 102.9 fL [facility] Monocytes/100 WBC (Bld) 9 % 3 - 12 % [facility] Monocytes/100 WBC (Bld) 0.68 % [facility] Neutrophils/100 WBC (Bld) 78 % High 36 - 65 % [facility] Nucleated RBC/100 WBC (Bld) [Ratio] 0.0 % 0.0 per 100 WBC [facility] Platelet mean volume (Bld) [Entitic vol] 9.2 fL 8.1 - 13.5 fL [facility] Platelets (Bld) [#/Vol] 321 10*3/uL [facility] RBC (Bld) [#/Vol] 3.28 10*6/uL Low 3.95 - 5.1 1 m/uL [facility] Segmented neutrophils/100 WBC (Bld) 6.13 % [facility] WBC other (Bld) [#/Vol] 7.9 [facility] CBC with Diffon 04-26-2023 Abs. Basophil <0.03 Normal 0.00-0.20 [facility] Comment on above: Performed By: #### B MARK FORD, PT #### [facility] [address] [place] [address] 18887 Prosthodontist/Educator: Romel Clemons MD Abs. Eosinophil <0.03 Normal 0.00-0.44 [facility] Comment on above: Performed By: #### B MARK FORD, PT #### [facility] [address] [place] [address] 75151 Prosthodontist/Educator: Romel Clemons MD Abs.Imm.Granulocyte 0.03 k/uL Normal 0.00-0.30 [facility] Comment on above: Performed By: #### B MARK FORD, PT #### [facility] [address] [place] [address] 08421 Prosthodontist/Educator: Romel Clemons MD Abs.Neutrophil (Seg) 6.13 k/uL Normal 1.50-8.10 [facility] Comment on above: Performed By: #### B MARK FORD, PT #### [facility] [address] [place] [address] 20066 Prosthodontist/Educator: Romel Clemons MD Basophils/100 WBC (Bld) 0 % Normal 0-2 [facility] Comment on above: Performed By: #### B MARK FORD, PT #### [facility] [address] [place] [address] 98983 Prosthodontist/Educator: Romel Clemons MD Eosinophils/100 WBC (Bld) 0 % Low 1-4 [facility] Comment on above: Performed By: #### B MARK FORD, PT #### [facility] [address] [place] [address] 13241 Prosthodontist/Educator: Romel Clemons MD Erythrocyte distribution width (RBC) [Ratio] 13.7 % Normal 11.8-14.4 [facility] Comment on above: Performed By: #### B LOGAN CDP, PT #### [facility] [address] [place] [address]90 Prosthodontist/Educator: Romel Clemons MD Hematocrit (Bld) [Volume fraction] 31.3 % Low 36.3-47.1 [facility] Comment on above: Performed By: #### B MARK FORD, PT #### [facility] [address] [place] [address] 46690 Prosthodontist/Educator: Romel Clemons MD Hemoglobin (Bld) [Mass/Vol] 10.0 g/dL Low 11.9-15.1 [facility] Comment on above: Performed By: #### B MARK FORD, PT #### [facility] [address] [place] [address] 37400 Prosthodontist/Educator: Romel Clemons MD Immature granulocytes/100 WBC (Bld) 0 % Normal 0 [facility] Comment on above: Performed By: #### B MARK FORD, PT #### [facility] [address] [place] [address] 38586 Prosthodontist/Educator: Romel Clemons MD Lymphocytes (Bld) [#/Vol] 1.01 10*3/uL Low 1.10-3.70 [facility] Comment on above: Performed By: #### B MARK FORD, PT #### [facility] [address] [place] [address] 61084 Prosthodontist/Educator: Romel Clemons MD Lymphocytes/100 WBC (Bld) 13 % Low 24-43 [facility] Comment on above: Performed By: #### B LOGAN CDP, PT #### [address] [address] Prosthodontist/Educator: Romel Clemons MD MCH (RBC) [Entitic mass] 30.5 pg Normal 25.2-33.5 [facility] Comment on above: Performed By: #### B LOGAN CDP, PT #### [address] [address] Prosthodontist/Educator: Romel Clemons MD MCHC (RBC) [Mass/Vol] 31.9 g/dL Normal 28.4-34.8 [facility] Comment on above: Performed By: #### B LOGAN, CDP, PT #### [address] [address] Prosthodontist/Educator: Romel Clemons MD MCV (RBC) [Entitic vol] 95.4 fL Normal 82.6-102.9 [facility] Comment on above: Performed By: #### B LOGAN, CDP, PT #### [address] [address] Prosthodontist/Educator: Romel Clemons MD Monocytes (Bld) [#/Vol] 0.68 10*3/uL Normal 0.10-1.20 [facility] Comment on above: Performed By: #### B LOGAN CDP, PT #### [address] [address] Prosthodontist/Educator: Romel Clemons MD Monocytes/100 WBC (Bld) 9 % Normal 3-12 [facility] Comment on above: Performed By: #### B MP, CDP, PT #### [address] [address] Prosthodontist/Educator: Romel Clemons MD Neutrophil (Seg) 78 % High 36-65 [facility] Comment on above: Performed By: #### B MP, CDP, PT #### [facility] [address] [place] [address] Prosthodontist/Educator: Romel Clemons MD NRBC Automated 0.0 per 100 WBC Normal 0.0 [facility] Comment on above: Performed By: #### B MARK FORD, PT #### [facility] [address] [place] [address] Prosthodontist/Educator: Romel Clemons MD Platelet mean volume (Bld) [Entitic vol] 9.2 fL Normal 8.1-13.5 [facility] Comment on above: Performed By: #### B MP, CDP, PT #### [facility] [address] [place] [address] Prosthodontist/Educator: Romel Clemons MD Platelets (Bld) [#/Vol] 321 10*3/uL Normal 138-453 [facility] Comment on above: Performed By: #### B MARK FORD, PT #### [facility] [address] [place] [address] Prosthodontist/Educator: Romel Clemons MD RBC (Bld) [#/Vol] 3.28 10*6/uL Low 3.95-5.11 [facility] Comment on above: Performed By: #### B LOGAN CDP, PT #### [facility] [address] [place] [address] 9[address]74 Prosthodontist/Educator: Romel Clemons MD WBC (Bld) [#/Vol] 7.9 10*3/uL Normal 3.5-11.3 [facility] Comment on above: Performed By: #### B LOGAN CDP, PT #### [facility] [address] [place] [address] 13394 Prosthodontist/Educator: Romel Clemons MD D-Dimer Teston 04-26-2023 D-Dimer Test >20.00 High 0.00-0.57 [facility] Comment on above: Result Comment: When [...] Performed By: #### H EPXA, PT #### [facility] [place] [address] Prosthodontist/Educator: Romel Clemons MD D-Dimer, Quantitativeon Fibrin D-dimer FEU (PPP) [Mass/Vol] [facility] Comment on above: When combined with a [...] Interpretation and review of laboratory results Abnormal [facility] EKG 12 LeadOrdered By: Wayne Reynolds on 04-26-2023 Atrial Rate 91 BPM [employer] Work Phone: P [place] 9 degrees [employer] Work Phone: P-R Interval 126 ms [employer] Work Phone: Q-T Interval 366 ms [employer] Work Phone: QRS Duration 88 ms [employer] Phone: QTc Calculation (Bazett) 450 ms [employer] Work Phone: R [place] 24 degrees [employer] Work Phone: T [place] 13 degrees [employer] Work Phone: Ventricular Rate 91 BPM [employer] Work Phone: [employer] Work Phone: EKG 12 Leadon 04-26-2023 Normal sinus rhythm Nonspecific T wave abnormality Abnormal ECG When compared with ECG of 22-APR-2023 05:48, No significant change was found [facility] Wayne Villa MD - 04/26/2023 Normal sinus rhythm Nonspecific T wave abnormality Abnormal ECG When compared with ECG of 22-APR-2023 05:48, No significant change was found [employer] Heparin Anti-Xaon 04-26-2023 Heparin Anti-Xa <0.10 Normal [facility] Comment on above: Performed By: #### H EPXA, PT #### [facility] [address] [place] [address] Prosthodontist/Educator: Romel Clemons MD Microscopic Urinalysison Bacteria LM Ql (Urine sed) None None [facility] Casts LM.LPF (Urine sed) [#/Area] 0 TO 2 HYALINE Reference range defined for non-centrifuged specimen. [facility] Epithelial cells LM.HPF (Urine sed) [#/Area] 2 TO 5 [facility] RBC LM.HPF (Urine sed) [#/Area] 2 TO 5 [facility] Comment on above: Reference range defi doris for non-centrifuged specimen. WBC LM.HPF (Urine sed) [#/Area] 2 TO 5 [facility] PTon 04-26-2023 INR Coag (PPP) [Relative time] 1.9 {INR} Normal [facility] Comment on above: Therapeutic Range: Moderate Anticoagulant Intensity: INR = 2.0-3.0 High Anticoagulant Intensity: INR = 2.5-3.5 Result Comment: Therapeutic Range: Moderate Anticoagulant Intensity: INR = 2.0-3.0 High Anticoagulant Intensity: INR = 2.5-3.5 Performed By: #### B LOGAN, CDP, PT #### [facility] [address] [place] [address] Prosthodontist/Educator: Romel Clemons MD PT Coag (PPP) [Time] 21.5 s High 11.7-14.9 [facility] Comment on above: Performed By: #### B LOGAN, CDP, PT #### [facility] [address] [place] [address] Prosthodontist/Educator: Romel Clemons MD Portable XR Chest AP [...] pleural effusion or evidence of pulmonary edema. [facility] Radiology Study observation (narrative) [facility] [employer] Portable XR Chest AP single viewOrdered By: Efren Morel on 04-26-2023 [facility] [employer] Work Phone: Procalcitoninon 04-26-2023 Procalcitonin 0.14 ng/mL High <0.09 [facility] Comment on above: Result Comment: Suspected [...] entered into the Change in Procalcitonin Calculator (www.kugore-xds-ybzbltdccq.com) to determine the patient's Mortality Risk Prognosis In healthy neonates, plasma Procalcitonin (PCT) concentrations increase gradually after , reaching peak values at about 24 hours of age then decrease to normal values below 0.5 ng/mL by 48-72 hours of age. Performed By: #### H EPXA, PT #### [facility] [address] [place] [address] Prosthodontist/Educator: Romel Clemons MD Interpretation and review of laboratory results Abnormal [facility] Procalcitonin [Mass/Vol] 0.14 ng/mL High NINF - 0.09 ng/mL [facility] Comment on above: Suspected Sepsis: <0.50 ng/mL [...] entered into the Change in Procalcitonin Calculator (www.mdxtom-koh-msxsoljsve.Stevie) to determine the patient's Mortality Risk Prognosis In healthy neonates, plasma Procalcitonin (PCT) concentrations increase gradually after , reaching peak values at about 24 hours of age then decrease to normal values below 0.5 ng/mL by 48-72 hours of age. [facility] Protime-INRon 04-26-2023 Interpretation and review of laboratory results Abnormal [facility] Troponinon 04-26-2023 Troponin, High Sens 64 ng/L Critically high 0-14 [facility] Comment on above: Result Comment: High Sensitivity Troponin values cannot be compared with other Troponin methodologies. Performed By: #### B MP, CDP, PT #### [facility] [place], [place] [address] Prosthodontist/Educator: Romel Clemons MD Interpretation and review of laboratory results Abnormal [facility] Troponin I.cardiac High sensitivity method [Mass/Vol] 64 ng/L Critically high 0 - 14 ng/L [facility] Comment on above: High Sensitivity Tro ponin values cannot be compared with other Troponin methodologies. [facility] UA w/Reflex Cultureon 2023 Bilirubin, SemiQt,Ur Negative Normal NEG [facility] Comment on above: Performed By: #### B LOGAN, CDP, PT #### [facility] [address] [place] [address] Prosthodontist/Educator: Romel Clemons MD Blood, Urine Negative Normal NEG [facility] Comment on above: Performed By: #### B MP, CDP, PT #### [facility] [address] [place] [address] Prosthodontist/Educator: Romel Clemons MD Clarity (U) Clear Normal CLEAR [facility] Comment on above: Performed By: #### B LOGAN, CDP, PT #### [facility] [address] [place] [address] Prosthodontist/Educator: Romel Clemons MD Color (U) Yellow Normal YEL [facility] Comment on above: Performed By: #### B LOGAN, CDP, PT #### [facility] [address] [place] [address] Prosthodontist/Educator: Romel Clemons MD Glucose Ql (U) Negative Normal NEG [facility] Comment on above: Performed By: #### B LOGAN, CDP, PT #### [facility] [address] [place] [address] Prosthodontist/Educator: Romel Clemons MD Ketones Ql (U) Negative Normal NEG [facility] Comment on above: Performed By: #### B LOGAN, CDP, PT #### [facility] [address] [place] [address] Prosthodontist/Educator: Romel Clemons MD Leukocyte esterase Test strip Ql (U) TRACE Abnormal NEG [facility] Comment on above: Performed By: #### B LOGAN, CDP, PT #### [facility] [address] [place] [address] Prosthodontist/Educator: Romel Clemons MD Nitrite,Ur Negative Normal NEG [facility] Comment on above: Performed By: #### B MP, CDP, PT #### [facility] [address] [place] [address] Prosthodontist/Educator: Romel Clemons MD PH,Ur 6.5 Normal 5.0-8.0 [facility] Comment on above: Performed By: #### B MARK FORD, PT #### [facility] [place] [address] Prosthodontist/Educator: Romel Clemons MD Protein Ql (U) Negative Normal NEG [facility] Comment on above: Performed By: #### B MARK FODR, PT #### [facility] [address] [place] [address] Prosthodontist/Educator: Romel Clemons MD Spec. [place],Ur 1.011 Normal 1.005-1.030 [facility] Comment on above: Performed By: #### B MARK FORD, PT #### [facility] [address] [place] [address] Prosthodontist/Educator: Romel Clemons MD Urobilinogen,Ur Normal Normal 0.0-1.0 [facility] Comment on above: Performed By: #### B MARK FORD, PT #### [facility] [address] [place] [address] Prosthodontist/Educator: Romel Clemons MD Urinalysis with Reflex to Cu ltureon 04-26-2023 Bilirubin Ql (U) Negative NEGATIVE [facility] [employer] Clarity (U) Clear Clear [facility] Color (U) Yellow Yellow [facility] Glucose Test strip (U) [Mass/Vol] Negative NEGATIVE mg/dL [facility] Hemoglobin Auto test strip Ql (U) Negative NEGATIVE [facility] Interpretation and review of laboratory results Abnormal [facility] Ketones (U) [Mass/Vol] Negative NEGATIVE mg/dL [facility] Leukocyte esterase Test strip Ql (U) TRACE Abnormal NEGATIVE [facility] Nitrite Ql (U) Negative NEGATIVE [facility] pH (U) 6.5 [pH] 5.0 - 8.0 [facility] Protein (U) [Mass/Vol] Negative NEGATIVE mg/dL [facility] Specific gravity (U) [Rel density] 1.011 1.005 - 1.030 [facility] Urobilinogen Qn (U) Normal 0.0 - 1. 0 EU/dL [facility] Urinalysis,Microon 4 Urine RBC's 2 TO 5 Normal 0-4 [facility] Comment on above: Result Comment: Refe rence range defined for non-centrifuged specimen. Performed By: #### B MARK FORD, PT #### [facility] [address] [place] [address]953 Prosthodontist/Educator: Romel Clemons MD Bacteria None Normal NONE [facility] Comment on above: Performed By: #### B MARK FORD, PT #### [facility] [address] [place] [address] 8[address]16 Prosthodontist/Educator: Romel Clemons MD Casts 0 TO 2 HYALINE Normal 0-8 [facility] Comment on above: Result Comment: Refe rence range defined for non-centrifuged specimen. Performed By: #### B MARK FORD, PT #### [facility] [address] [place] [address] 83917 Prosthodontist/Educator: Romel Clemons MD Epithelial cells LM Ql (Urine sed) 2 TO 5 Normal 0-5 [facility] Comment on above: Performed By: #### B MARK FORD, PT #### [employer] [address] [place] [address] Prosthodontist/Educator: Romel Clemons MD Urine WBC's 2 TO 5 Normal 0-5 [facility] Comment on above: Performed By: #### B MARK FORD, PT #### [employer] [address] [place] [address] 15172 Prosthodontist/Educator: Romel Clemons MD Vascular duplex lower extrem ity arteries left with ABIon 04-26-2023 Radiology Study observation (narrative) [facility] [employer] XR CHEST PORTABLEon 04-26-19 XR CHEST PORTABLE [...] Efren Morel MD 04/26/23 Final result Normal [facility] Basic Metabolic Panelon Anion gap [Moles/Vol] 11 mmol/L 9 - 17 mmol/L [facility] [employer] Calcium [Mass/Vol] 8.6 mg/dL 8.6 - 10. 4 mg/dL [facility] [employer] Chloride [Moles/Vol] 103 mmol/L 98 - 10 7 mmol/L [facility] [employer] CO2 [Moles/Vol] 23 mmol/L 20 - 31 mmol/L [facility] [employer] Creatinine [Mass/Vol] 0.5 mg/dL 0.5 - 0.9 mg/dL [facility] [employer] GFR/1.73 sq M.predicted MDRD (S/P/Bld) [Vol rate/Area] - PINF [facility] Comment on above: These results are not [...] 119 mg/dL High 70 - 99 mg/dL [facility] Interpretation and review of laboratory results Abnormal [facility] [employer] Potassium [Moles/Vol] 4.0 mmol/L 3.7 - 5.3 mmol/L [facility] Sodium [Moles/Vol] 137 mmol/L 135 - 144 mmol/L [facility] Urea nitrogen [Mass/Vol] 13 mg/dL 6 - 20 mg/dL [facility] Basic Metabolic Profon 04-25 Anion gap [Moles/Vol] 11 mmol/L Normal 9-17 [facility] Comment on above: Performed By: #### B MARK FORD, PT #### [facility] [address] [place] [address] 73954 Prosthodontist/Educator: Romel Clemons MD Calcium [Mass/Vol] 8.6 mg/dL Normal 8.6-10.4 [facility] Comment on above: Performed By: #### B MARK FORD, PT #### [facility] [address] [place] [address] Prosthodontist/Educator: Romel Clemons MD Chloride [Moles/Vol] 103 mmol/L Normal 98-107 [facility] Comment on above: Performed By: #### B MARK FORD, PT #### [facility] [address] [place] [address]370 Prosthodontist/Educator: Romel Clemons MD CO2 [Moles/Vol] 23 mmol/L Normal 20-31 [facility] Comment on above: Performed By: #### B MARK FORD, PT #### [facility] [address] [place] [address] 04090 Prosthodontist/Educator: Romel Clemons MD Creatinine [Mass/Vol] 0.5 mg/dL Normal 0.5-0.9 [facility] Comment on above: Performed By: #### B MARK FORD, PT #### [employer] [address] [place] [address] 79959 Prosthodontist/Educator: Romel Clemons MD GFR/1.73 sq M.predicted among non-blacks MDRD (S/P/Bld) [Vol rate/Area] mL/min/{1.73_m2} Normal >60 [facility] Comment on above: Result Comment: These [...] By: #### B MARK FORD, PT #### [facility] [address] [place] [address] 68107 Prosthodontist/Educator: Romel Clemons MD Glucose [Mass/Vol] 119 mg/dL High 70-99 [facility] Comment on above: Performed By: #### B MARK FORD, PT #### [facility] [address] [place] [address] 64912 Prosthodontist/Educator: Romel Clemons MD Potassium [Moles/Vol] 4.0 mmol/L Normal 3.7-5.3 [facility] Comment on above: Performed By: #### B MARK FORD, PT #### [facility] [address] [place] [address] 27704 Prosthodontist/Educator: Romel Clemons MD Sodium [Moles/Vol] 137 mmol/L Normal 135-144 [facility] Comment on above: Performed By: #### B MARK FORD, PT #### [facility] [address] [place] [address] 75932 Prosthodontist/Educator: Romel Clemons MD Urea nitrogen [Mass/Vol] 13 mg/dL Normal 6-20 [facility] Comment on above: Performed By: #### B MARK FORD, PT #### [facility] [address] [place] [address] 80354 Prosthodontist/Educator: Romel Clemons MD CBC with Auto Differentialon 04-25-2023 Basophils (Bld) [#/Vol] [facility] Basophils/100 WBC (Bld) 0 % 0 - 2 % [facility] Eosinophils (Bld) [#/Vol] [facility] Eosinophils/100 WBC (Bld) 0 % Low 1 - 4 % [facility] Erythrocyte distribution width (RBC) [Ratio] 13.7 % 11.8 - 14.4 % [facility] Hematocrit (Bld) [Volume fraction] 32.7 % Low 36.3 - 47.1 % [facility] Hemoglobin (Bld) [Mass/Vol] 9.8 g/dL Low 11.9 - 15.1 g/dL [facility] Immature granulocytes (Bld) [#/Vol] 0.03 10*3/uL [facility] Immature granulocytes/100 WBC (Bld) 1 % High 0 [facility] Interpretation and review of laboratory results Abnormal [facility] Lymphocytes/100 WBC (Bld) 20 % Low 24 - 43 % [facility] Lymphocytes/100 WBC (Bld) 1.24 % [facility] MCH (RBC) [Entitic mass] 30.0 pg 25.2 - 33.5 pg [facility] MCHC (RBC) [Mass/Vol] 30.0 g/dL 28.4 - 34.8 g/dL [facility] MCV (RBC) [Entitic vol] 100.0 fL 82.6 - 102.9 fL [facility] Monocytes/100 WBC (Bld) 10 % 3 - 12 % [facility] Monocytes/100 WBC (Bld) 0.62 % [facility] Neutrophils/100 WBC (Bld) 69 % High 36 - 65 % [facility] Nucleated RBC/100 WBC (Bld) [Ratio] 0.0 % 0.0 per 100 WBC [facility] Platelet mean volume (Bld) [Entitic vol] 9.2 fL 8.1 - 13.5 fL [facility] Platelets (Bld) [#/Vol] 343 10*3/uL [facility] RBC (Bld) [#/Vol] 3.27 10*6/uL Low 3.95 - 5.1 1 m/uL [facility] Segmented neutrophils/100 WBC (Bld) 4.37 % [facility] WBC other (Bld) [#/Vol] 6.3 [facility] CBC with Diffon 04-25-2023 Abs. Basophil <0.03 Normal 0.00-0.20 [facility] Comment on above: Performed By: #### B MARK FORD, PT #### [facility] [address] [place] [address] 22695 Prosthodontist/Educator: Romel Clemons MD Abs. Eosinophil <0.03 Normal 0.00-0.44 [facility] Comment on above: Performed By: #### B MARK FORD, PT #### [facility] [address] [place] [address] 92575 Prosthodontist/Educator: Romel Clemons MD Abs.Imm.Granulocyte 0.03 k/uL Normal 0.00-0.30 [facility] Comment on above: Performed By: #### B MARK FORD, PT #### [facility] [address] [place] [address] 85960 Prosthodontist/Educator: Romel Clemons MD Abs.Neutrophil (Seg) 4.37 k/uL Normal 1.50-8.10 [facility] Comment on above: Performed By: #### B MARK FORD, PT #### [facility] [address] [place] [address] 27272 Prosthodontist/Educator: Romel Clemons MD Basophils/100 WBC (Bld) 0 % Normal 0-2 [facility] Comment on above: Performed By: #### B LOGAN CDP, PT #### [facility] [address] [place] [address] 97078 Prosthodontist/Educator: Romel Clemons MD Eosinophils/100 WBC (Bld) 0 % Low 1-4 [facility] Comment on above: Performed By: #### B LOGAN CDP, PT #### [facility] [address] [place] [address] 90207 Prosthodontist/Educator: Romel Clemons MD Erythrocyte distribution width (RBC) [Ratio] 13.7 % Normal 11.8-14.4 [facility] Comment on above: Performed By: #### B MARK FORD, PT #### [facility] [address] [place] [address] 03018 Prosthodontist/Educator: Romel Clemons MD Hematocrit (Bld) [Volume fraction] 32.7 % Low 36.3-47.1 [facility] Comment on above: Performed By: #### B MARK FORD, PT #### [facility] [address] [place] [address] 93130 Prosthodontist/Educator: Romel Clemons MD Hemoglobin (Bld) [Mass/Vol] 9.8 g/dL Low 11.9-15.1 [facility] Comment on above: Performed By: #### B MARK FORD, PT #### [facility] [address] [place] [address] 72445 Prosthodontist/Educator: Romel Clemons MD Immature granulocytes/100 WBC (Bld) 1 % High 0 [facility] Comment on above: Performed By: #### B MARK FORD, PT #### [facility] [address] [place] [address] 65998 Prosthodontist/Educator: Romel Clemons MD Lymphocytes (Bld) [#/Vol] 1.24 10*3/uL Normal 1.10-3.70 [facility] Comment on above: Performed By: #### B MARK FORD, PT #### [facility] [address] [place] [address] 80454 Prosthodontist/Educator: Romel Clemons MD Lymphocytes/100 WBC (Bld) 20 % Low 24-43 [facility] Comment on above: Performed By: #### B MARK FORD, PT #### [facility] [address] [place] [address] 03656 Prosthodontist/Educator: Romel Clemons MD MCH (RBC) [Entitic mass] 30.0 pg Normal 25.2-33.5 [facility] Comment on above: Performed By: #### B MARK FORD, PT #### [address] [address] Prosthodontist/Educator: Romel Clemons MD MCHC (RBC) [Mass/Vol] 30.0 g/dL Normal 28.4-34.8 [facility] Comment on above: Performed By: #### B MARK FORD, PT #### [facility] [address] [place] [address] 28574 Prosthodontist/Educator: Romel Clemons MD MCV (RBC) [Entitic vol] 100.0 fL Normal 82.6-102.9 [facility] Comment on above: Performed By: #### B MARK FORD, PT #### [address] [address] Prosthodontist/Educator: Romel Clemons MD Monocytes (Bld) [#/Vol] 0.62 10*3/uL Normal 0.10-1.20 [facility] Comment on above: Performed By: #### B MARK FORD, PT #### [address] [address] Prosthodontist/Educator: Romel Clemons MD Monocytes/100 WBC (Bld) 10 % Normal 3-12 [facility] Comment on above: Performed By: #### B MARK FORD, PT #### [facility] [address] [place] [address] 68935 Prosthodontist/Educator: Romel Clemons MD Neutrophil (Seg) 69 % High 36-65 [facility] Comment on above: Performed By: #### B MARK FORD, PT #### [facility] [address] [place] [address] 63186 Prosthodontist/Educator: Romel Clemons MD NRBC Automated 0.0 per 100 WBC Normal 0.0 [facility] Comment on above: Performed By: #### B MP, CDP, PT #### [facility] [address] [place] [address] 21656 Prosthodontist/Educator: Romel Clemons MD Platelet mean volume (Bld) [Entitic vol] 9.2 fL Normal 8.1-13.5 [facility] Comment on above: Performed By: #### B MP, CDP, PT #### [facility] [address] [place] [address] 19433 Prosthodontist/Educator: Romel Clemons MD Platelets (Bld) [#/Vol] 343 10*3/uL Normal 138-453 [facility] Comment on above: Performed By: #### B MP, CDP, PT #### [facility] [address] [place] [address] 73460 Prosthodontist/Educator: Romel Clemons MD RBC (Bld) [#/Vol] 3.27 10*6/uL Low 3.95-5.11 [facility] Comment on above: Performed By: #### B MP, CDP, PT #### [facility] [address] [place] [address] 67916 Prosthodontist/Educator: Romel Clemons MD WBC (Bld) [#/Vol] 6.3 10*3/uL Normal 3.5-11.3 [facility] Comment on above: Performed By: #### B MP, CDP, PT #### [facility] [address] [place] [address] 25785 Prosthodontist/Educator: Romel Clemons MD PTon 04-25-2023 INR Coag (PPP) [Relative time] 1.6 {INR} Normal [facility] Comment on above: Result Comment: Therapeutic Range: Moderate Anticoagulant Intensity: INR = 2.0-3.0 High Anticoagulant Intensity: INR = 2.5-3.5 Performed By: #### B MP, CDP, PT #### [facility] [address] [place] [address] 44269 Prosthodontist/Educator: Romel Clemons MD PT Coag (PPP) [Time] 18.4 s High 11.7-14.9 [facility] Comment on above: Performed By: #### B MP, CDP, PT #### [employer] [facility] [facility] [address] [place] [address] Prosthodontist/Educator: Romel Clemons MD Protime-INRon 04-25-2023 INR Coag (PPP) [Relative time] 1.6 {INR} [facility] Comment on above: Therapeutic Range: Moderate Anticoagulant Intensity: INR = 2.0-3.0 High Anticoagulant Intensity: INR = 2.5-3.5 Interpretation and review of laboratory results Abnormal [facility] PT Coag (PPP) [Time] 18.4 s High [facility] CBC with Auto Differentialon 04-24-2023 Basophils (Bld) [#/Vol] [facility] Basophils/100 WBC (Bld) 0 % 0 - 2 % [facility] Eosinophils (Bld) [#/Vol] [facility] Eosinophils/100 WBC (Bld) 0 % Low 1 - 4 % [facility] Erythrocyte distribution width (RBC) [Ratio] 13.9 % 11.8 - 14.4 % [facility] Hematocrit (Bld) [Volume fraction] 29.7 % Low 36.3 - 47.1 % [facility] Hemoglobin (Bld) [Mass/Vol] 9.3 g/dL Low 11.9 - 15.1 g/dL [facility] Immature granulocytes (Bld) [#/Vol] 0.03 10*3/uL [facility] Immature granulocytes/100 WBC (Bld) 1 % High 0 [facility] Interpretation and review of laboratory results Abnormal [facility] Lymphocytes/100 WBC (Bld) 26 % 24 - 43 % [facility] Lymphocytes/100 WBC (Bld) 1.09 % Low [facility] MCH (RBC) [Entitic mass] 30.6 pg 25.2 - 33.5 pg [facility] MCHC (RBC) [Mass/Vol] 31.3 g/dL 28.4 - 34.8 g/dL [facility] MCV (RBC) [Entitic vol] 97.7 fL 82.6 - 102.9 fL [facility] Monocytes/100 WBC (Bld) 10 % 3 - 12 % [facility] Monocytes/100 WBC (Bld) 0.43 % [facility] Neutrophils/100 WBC (Bld) 63 % 36 - 65 % [facility] Nucleated RBC/100 WBC (Bld) [Ratio] 0.0 % 0.0 per 100 WBC [facility] Platelet mean volume (Bld) [Entitic vol] 9.0 fL 8.1 - 13.5 fL [facility] Platelets (Bld) [#/Vol] 350 10*3/uL [facility] RBC (Bld) [#/Vol] 3.04 10*6/uL Low 3.95 - 5.1 1 m/uL [facility]ITAL[facility] Segmented neutrophils/100 WBC (Bld) 2.64 % [facility] WBC other (Bld) [#/Vol] 4.2 [facility] CBC with Diffon 04-24-2023 Abs. Basophil <0.03 Normal 0.00-0.20 [facility] Comment on above: Performed By: #### H EPXA, PT #### [facility] [address] [place] [address] Prosthodontist/Educator: Romel Clemons MD Abs. Eosinophil <0.03 Normal 0.00-0.44 [facility] Comment on above: Performed By: #### H EPXA, PT #### [employer] [address] [place] [address] [phone] Prosthodontist/Educator: Romel Clemons MD Abs.Imm.Granulocyte 0.03 k/uL Normal 0.00-0.30 [facility] Comment on above: Performed By: #### H EPXA, PT #### [employer] [address] [place], [place] [phone] Prosthodontist/Educator: Romel Clemons MD Abs.Neutrophil (Seg) 2.64 k/uL Normal 1.50-8.10 [facility] Comment on above: Performed By: #### H EPXA, PT #### [facility] [address] [place] [address] 93539 Prosthodontist/Educator: Romel Clemons MD Basophils/100 WBC (Bld) 0 % Normal 0-2 [facility] Comment on above: Performed By: #### H EPXA, PT #### [facility] [address] [place] [address] 41592 Prosthodontist/Educator: Romel Clemons MD Eosinophils/100 WBC (Bld) 0 % Low 1-4 [facility] Comment on above: Performed By: #### H EPXA, PT #### [address] [address] Prosthodontist/Educator: Romel Clemons MD Erythrocyte distribution width (RBC) [Ratio] 13.9 % Normal 11.8-14.4 [facility] Comment on above: Performed By: #### H EPXA, PT #### [facility] [address] [place] [address] 84155 Prosthodontist/Educator: Romel Clemons MD Hematocrit (Bld) [Volume fraction] 29.7 % Low 36.3-47.1 [facility] Comment on above: Performed By: #### H EPXA, PT #### [facility] [address] [place] [address] 07967 Prosthodontist/Educator: Romel Clemons MD Hemoglobin (Bld) [Mass/Vol] 9.3 g/dL Low 11.9-15.1 [facility] Comment on above: Performed By: #### H EPXA, PT #### [facility] [address] [place] [address] 87939 Prosthodontist/Educator: Romel Clemons MD Immature granulocytes/100 WBC (Bld) 1 % High 0 [facility] Comment on above: Performed By: #### H EPXA, PT #### [place] [address] Prosthodontist/Educator: Romel Clemons MD Lymphocytes (Bld) [#/Vol] 1.09 10*3/uL Low 1.10-3.70 [facility] Comment on above: Performed By: #### H EPXA, PT #### [place] [address] Prosthodontist/Educator: Romel Clemons MD Lymphocytes/100 WBC (Bld) 26 % Normal 24-43 [facility] Comment on above: Performed By: #### H EPXA, PT #### [place] [address] Prosthodontist/Educator: Romel Clemons MD MCH (RBC) [Entitic mass] 30.6 pg Normal 25.2-33.5 [facility] Comment on above: Performed By: #### H EPXA, PT #### [place] [address] Prosthodontist/Educator: Romel Clemons MD MCHC (RBC) [Mass/Vol] 31.3 g/dL Normal 28.4-34.8 [facility] Comment on above: Performed By: #### H EPXA, PT #### [place] [address] Prosthodontist/Educator: Romel Clemons MD MCV (RBC) [Entitic vol] 97.7 fL Normal 82.6-102.9 [facility] Comment on above: Performed By: #### H EPXA, PT #### [place] [address] Prosthodontist/Educator: Romel Clemons MD Monocytes (Bld) [#/Vol] 0.43 10*3/uL Normal 0.10-1.20 [facility] Comment on above: Performed By: #### H EPXA, PT #### [address] [address] Prosthodontist/Educator: Romel Clemons MD Monocytes/100 WBC (Bld) 10 % Normal 3-12 [facility] Comment on above: Performed By: #### H EPXA, PT #### [address] [address] Prosthodontist/Educator: Romel Clemons MD Neutrophil (Seg) 63 % Normal 36-65 [facility] Comment on above: Performed By: #### H EPXA, PT #### [address] [address] Prosthodontist/Educator: Romel Clemons MD NRBC Automated 0.0 per 100 WBC Normal 0.0 [facility] Comment on above: Performed By: #### H EPXA, PT #### [address] [address] Prosthodontist/Educator: Romel Clemons MD Platelet mean volume (Bld) [Entitic vol] 9.0 fL Normal 8.1-13.5 [facility] Comment on above: Performed By: #### H EPXA, PT #### [address] [address] Prosthodontist/Educator: Romel Clemons MD Platelets (Bld) [#/Vol] 350 10*3/uL Normal 138-453 [facility] Comment on above: Performed By: #### H EPXA, PT #### [address] [address] Prosthodontist/Educator: Romel Clemons MD RBC (Bld) [#/Vol] 3.04 10*6/uL Low 3.95-5.11 [facility] Comment on above: Performed By: #### H EPXA, PT #### [address] [address] Prosthodontist/Educator: Romel Clemons MD WBC (Bld) [#/Vol] 4.2 10*3/uL Normal 3.5-11.3 [facility] Comment on above: Performed By: #### H EPXA, PT #### [address] [address] Prosthodontist/Educator: Romel Clemons MD Comp Metabolic Pr/rfx MGon 0 - Albumin [Mass/Vol] 3.1 g/dL Low 3.5-5.2 [facility] Comment on above: Performed By: #### H EPXA #### [address] [address] Prosthodontist/Educator: Romel Clemons MD Albumin/Glob Ratio 1.2 Normal 1.0-2.5 [facility] Comment on above: Performed By: #### H EPXA #### [address] [address] Prosthodontist/Educator: Romel Clemons MD Alkaline Phos 109 U/L High 35-104 [facility] Comment on above: Performed By: #### H EPXA #### [address] [address] Prosthodontist/Educator: Romel Clemons MD ALT [Catalytic activity/Vol] 21 U/L Normal 5-33 [facility] Comment on above: Performed By: #### H EPXA #### [address] [address] Prosthodontist/Educator: Romel Clemons MD Anion gap [Moles/Vol] 10 mmol/L Normal 9-17 [facility] Comment on above: Performed By: #### H EPXA #### [address] [address] Prosthodontist/Educator: Romel Clemons MD AST [Catalytic activity/Vol] 18 U/L Normal <32 [facility] Comment on above: Performed By: #### H EPXA #### [address] [address] Prosthodontist/Educator: Romel Clemons MD Bilirubin [Mass/Vol] 0.2 mg/dL Low 0.3-1.2 [facility] Comment on above: Performed By: #### H EPXA #### [address] [address] Prosthodontist/Educator: Romel Clemons MD Calcium [Mass/Vol] 8.5 mg/dL Low 8.6-10.4 [facility] Comment on above: Performed By: #### H EPXA #### [address] [address] Prosthodontist/Educator: Romel Clemons MD Chloride [Moles/Vol] 104 mmol/L Normal 98-107 [facility] Comment on above: Performed By: #### H EPXA #### [address] [address] Prosthodontist/Educator: Romel Clemons MD CO2 [Moles/Vol] 24 mmol/L Normal 20-31 [facility] Comment on above: Performed By: #### H EPXA #### [address] [address] Prosthodontist/Educator: Romel Clemons MD Creatinine [Mass/Vol] 0.5 mg/dL Normal 0.5-0.9 [facility] Comment on above: Performed By: #### H EPXA #### [address] [address] Prosthodontist/Educator: Romel Clemons MD GFR/1.73 sq M.predicted among non-blacks MDRD (S/P/Bld) [Vol rate/Area] mL/min/{1.73_m2} Normal >60 [facility] Comment on above: Result Comment: These [...] secretion. Performed By: #### H EPXA #### [address] [address] Prosthodontist/Educator: Romel Clemons MD Glucose [Mass/Vol] 116 mg/dL High 70-99 [facility] Comment on above: Performed By: #### H EPXA #### [address] [address] Prosthodontist/Educator: Romel Clemons MD Potassium [Moles/Vol] 4.2 mmol/L Normal 3.7-5.3 [facility] Comment on above: Performed By: #### H EPXA #### [address] [address] Prosthodontist/Educator: Romel Clemons MD Protein [Mass/Vol] 5.7 g/dL Low 6.4-8.3 [facility] Comment on above: Performed By: #### H EPXA #### [address] [address] Prosthodontist/Educator: Romel Clemons MD Sodium [Moles/Vol] 138 mmol/L Normal 135-144 [facility] Comment on above: Performed By: #### H EPXA #### [facility] [address] [place] [address] Prosthodontist/Educator: Romel Clemons MD Urea nitrogen [Mass/Vol] 10 mg/dL Normal 6-20 [facility] Comment on above: Performed By: #### H EPXA #### [address] [address] Prosthodontist/Educator: Romel Clemons MD Comprehensive Metabolic Pane l w/ Reflex to on 04-24-2023 Albumin [Mass/Vol] 3.1 g/dL Low 3.5 - 5.2 g/dL [facility] Albumin/Globulin [Mass ratio] 1.2 {ratio} 1.0 - 2.5 [facility] ALP [Catalytic activity/Vol] 109 U/L High 35 - 104 U/L [facility] ALT [Catalytic activity/Vol] 21 U/L 5 - 33 U/L [facility] Anion gap [Moles/Vol] 10 mmol/L 9 - 17 mmol/L [facility] AST [Catalytic activity/Vol] 18 U/L NINF - 32 U/L [facility] Bilirubin [Mass/Vol] 0.2 mg/dL Low 0.3 - 1 .2 mg/dL [facility] Calcium [Mass/Vol] 8.5 mg/dL Low 8.6 - 10. 4 mg/dL [facility] Chloride [Moles/Vol] 104 mmol/L 98 - 10 7 mmol/L [facility] CO2 [Moles/Vol] 24 mmol/L 20 - 31 mmol/L [facility] Creatinine [Mass/Vol] 0.5 mg/dL 0.5 - 0.9 mg/dL [facility] GFR/1.73 sq M.predicted MDRD (S/P/Bld) [Vol rate/Area] - PINF [facility] Comment on above: These results are not [...] 116 mg/dL High 70 - 99 mg/dL [facility] Interpretation and review of laboratory results Abnormal [facility] Potassium [Moles/Vol] 4.2 mmol/L 3.7 - 5.3 mmol/L [facility] Protein [Mass/Vol] 5.7 g/dL Low 6.4 - 8.3 g/dL [facility] Sodium [Moles/Vol] 138 mmol/L 135 - 144 mmol/L [facility] Urea nitrogen [Mass/Vol] 10 mg/dL 6 - 20 mg/dL [facility] PTon 04-24-2023 INR Coag (PPP) [Relative time] 1.1 {INR} Normal [facility] Comment on above: Result Comment: Therapeutic Range: Moderate Anticoagulant Intensity: INR = 2.0-3.0 High Anticoagulant Intensity: INR = 2.5-3.5 Performed By: #### H EPXA, PT #### [employer] [facility] [place] [address] Prosthodontist/Educator: Romel Clemons MD PT Coag (PPP) [Time] 14.1 s Normal 11.7-14.9 [facility] Comment on above: Performed By: #### H EPXA, PT #### [employer] [address] [place] [phone] Prosthodontist/Educator: Romel Clemons MD Protime-INRon 04-24-2023 INR Coag (PPP) [Relative time] 1.1 {INR} [facility] Comment on above: Therapeutic Range: Moderate Anticoagulant Intensity: INR = 2.0-3.0 High Anticoagulant Intensity: INR = 2.5-3.5 PT Coag (PPP) [Time] 14.1 s [facility] Basic Metabolic Panelon Anion gap [Moles/Vol] 9 mmol/L 9 - 17 mmol/L [facility] Calcium [Mass/Vol] 8.3 mg/dL Low 8.6 - 10. 4 mg/dL [facility] Chloride [Moles/Vol] 104 mmol/L 98 - 10 7 mmol/L [facility] CO2 [Moles/Vol] 25 mmol/L 20 - 31 mmol/L [facility] Creatinine [Mass/Vol] 0.6 mg/dL 0.5 - 0.9 mg/dL [facility] GFR/1.73 sq M.predicted MDRD (S/P/Bld) [Vol rate/Area] - PINF [facility] Comment on above: These results are not [...] 113 mg/dL High 70 - 99 mg/dL [facility] Interpretation and review of laboratory results Abnormal [facility] Potassium [Moles/Vol] 3.8 mmol/L 3.7 - 5.3 mmol/L [facility] Sodium [Moles/Vol] 138 mmol/L 135 - 144 mmol/L [facility] Urea nitrogen [Mass/Vol] 12 mg/dL 6 - 20 mg/dL [facility] Basic Metabolic Profon 04-23 Anion gap [Moles/Vol] 9 mmol/L Normal 9-17 [facility] Comment on above: Performed By: #### B MARK FORD, PT #### [facility] [address] [place] [address] Prosthodontist/Educator: Romel Clemons MD Calcium [Mass/Vol] 8.3 mg/dL Low 8.6-10.4 [facility] Comment on above: Performed By: #### B MARK FORD, PT #### [facility] [address] [place] [address] [phone] Prosthodontist/Educator: Romel Clemons MD Chloride [Moles/Vol] 104 mmol/L Normal 98-107 [facility] Comment on above: Performed By: #### B MARK FORD, PT #### [facility] [address] [place] [address] [phone] Prosthodontist/Educator: Romel Clemons MD CO2 [Moles/Vol] 25 mmol/L Normal 20-31 [facility] Comment on above: Performed By: #### B MARK FORD, PT #### [facility] [address] [place] [address] Prosthodontist/Educator: Romel Clemons MD Creatinine [Mass/Vol] 0.6 mg/dL Normal 0.5-0.9 [facility] Comment on above: Performed By: #### B MARK FORD, PT #### [facility] [address] [place] [address] Prosthodontist/Educator: Romel Clemons MD GFR/1.73 sq M.predicted among non-blacks MDRD (S/P/Bld) [Vol rate/Area] mL/min/{1.73_m2} Normal >60 [facility] Comment on above: Result Comment: These [...] By: #### B MARK FORD, PT #### [facility] [address] [place] [address] Prosthodontist/Educator: Romel Clemons MD Glucose [Mass/Vol] 113 mg/dL High 70-99 [facility] Comment on above: Performed By: #### B MARK FORD, PT #### [facility] [address] [place] [address] Prosthodontist/Educator: Romel Clemons MD Potassium [Moles/Vol] 3.8 mmol/L Normal 3.7-5.3 [facility] Comment on above: Performed By: #### B MARK FORD, PT #### [facility] [address] [place] [address] Prosthodontist/Educator: Romel Clemons MD Sodium [Moles/Vol] 138 mmol/L Normal 135-144 [facility] Comment on above: Performed By: #### B LOGAN, MARK, PT #### [facility] [facility] [address] [place], [place] [phone] Prosthodontist/Educator: Romel Clemons MD Urea nitrogen [Mass/Vol] 12 mg/dL Normal 6-20 [facility] Comment on above: Performed By: #### B LOGAN, MARK, PT #### [facility] [facility] [address] [place], [place] [phone] Prosthodontist/Educator: Romel Clemons MD CBC with Auto Differentialon 04-23-2023 Basophils (Bld) [#/Vol] [facility] Basophils/100 WBC (Bld) 0 % 0 - 2 % [facility] Eosinophils (Bld) [#/Vol] [facility] Eosinophils/100 WBC (Bld) 0 % Low 1 - 4 % [facility] Erythrocyte distribution width (RBC) [Ratio] 14.0 % 11.8 - 14.4 % [facility] Hematocrit (Bld) [Volume fraction] 27.7 % Low 36.3 - 47.1 % [facility] Hemoglobin (Bld) [Mass/Vol] 8.6 g/dL Low 11.9 - 15.1 g/dL [facility] Immature granulocytes (Bld) [#/Vol] 0.04 10*3/uL [facility] Immature granulocytes/100 WBC (Bld) 1 % High 0 [facility] Interpretation and review of laboratory results Abnormal [facility] Lymphocytes/100 WBC (Bld) 23 % Low 24 - 43 % [facility] Lymphocytes/100 WBC (Bld) 1.12 % [facility] MCH (RBC) [Entitic mass] 30.7 pg 25.2 - 33.5 pg [facility] MCHC (RBC) [Mass/Vol] 31.0 g/dL 28.4 - 34.8 g/dL [facility] MCV (RBC) [Entitic vol] 98.9 fL 82.6 - 102.9 fL [facility] Monocytes/100 WBC (Bld) 13 % High 3 - 12 % [facility] Monocytes/100 WBC (Bld) 0.64 % [facility] Neutrophils/100 WBC (Bld) 63 % 36 - 65 % [facility] Nucleated RBC/100 WBC (Bld) [Ratio] 0.0 % 0.0 per 100 WBC [facility] Platelet mean volume (Bld) [Entitic vol] 9.3 fL 8.1 - 13.5 fL [facility] Platelets (Bld) [#/Vol] 296 10*3/uL [facility] RBC (Bld) [#/Vol] 2.80 10*6/uL Low 3.95 - 5.1 1 m/uL [facility] Segmented neutrophils/100 WBC (Bld) 3.01 % [facility] WBC other (Bld) [#/Vol] 4.8 [facility] CBC with Diffon 04-23-2023 Abs. Basophil <0.03 Normal 0.00-0.20 [facility] Comment on above: Performed By: #### B MARK FORD, PT #### [employer] [address] [place] [address] Prosthodontist/Educator: Romel Clemons MD Abs. Eosinophil <0.03 Normal 0.00-0.44 [facility] Comment on above: Performed By: #### B MARK FORD, PT #### [employer] [address] [place] [address] Prosthodontist/Educator: Romel Clemons MD Abs.Imm.Granulocyte 0.04 k/uL Normal 0.00-0.30 [facility] Comment on above: Performed By: #### B MARK FORD, PT #### [employer] [address] [place] [address] Prosthodontist/Educator: Romel Clemons MD Abs.Neutrophil (Seg) 3.01 k/uL Normal 1.50-8.10 [facility] Comment on above: Performed By: #### B MARK FORD, PT #### [employer] [address] [place] [address] Prosthodontist/Educator: Romel Clemons MD Basophils/100 WBC (Bld) 0 % Normal 0-2 [facility] Comment on above: Performed By: #### B MP, CDP, PT #### [facility] [address] [place] [address] Prosthodontist/Educator: Romel Clemons MD Eosinophils/100 WBC (Bld) 0 % Low 1-4 [facility] Comment on above: Performed By: #### B LOGAN, CDP, PT #### [facility] [address] [place] [address] Prosthodontist/Educator: Romel Clemons MD Erythrocyte distribution width (RBC) [Ratio] 14.0 % Normal 11.8-14.4 [facility] Comment on above: Performed By: #### B LOGAN, CDP, PT #### [facility] [address] [place] [address] Prosthodontist/Educator: Romel Clemons MD Hematocrit (Bld) [Volume fraction] 27.7 % Low 36.3-47.1 [facility] Comment on above: Performed By: #### B LOGAN, CDP, PT #### [facility] [address] [place] [address] Prosthodontist/Educator: Romel Clemons MD Hemoglobin (Bld) [Mass/Vol] 8.6 g/dL Low 11.9-15.1 [facility] Comment on above: Performed By: #### B LOGAN, CDP, PT #### [facility] [address] [place] [address] Prosthodontist/Educator: Romel Clemons MD Immature granulocytes/100 WBC (Bld) 1 % High 0 [facility] Comment on above: Performed By: #### B LOGAN, CDP, PT #### [facility] [address] [place] [address] Prosthodontist/Educator: Romel Clemons MD Lymphocytes (Bld) [#/Vol] 1.12 10*3/uL Normal 1.10-3.70 [facility] Comment on above: Performed By: #### B MARK FORD, PT #### [facility] [address] [place] [address] Prosthodontist/Educator: Romel Clemons MD Lymphocytes/100 WBC (Bld) 23 % Low 24-43 [facility] Comment on above: Performed By: #### B MARK FORD, PT #### [facility] [address] [place] [address] Prosthodontist/Educator: Romel Clemons MD MCH (RBC) [Entitic mass] 30.7 pg Normal 25.2-33.5 [facility] Comment on above: Performed By: #### B MARK FORD, PT #### [address] [address] Prosthodontist/Educator: Romel Clemons MD MCHC (RBC) [Mass/Vol] 31.0 g/dL Normal 28.4-34.8 [facility] Comment on above: Performed By: #### B MARK FORD, PT #### [facility] [address] [place] [address] Prosthodontist/Educator: Romel Clemons MD MCV (RBC) [Entitic vol] 98.9 fL Normal 82.6-102.9 [facility] Comment on above: Performed By: #### B MARK FORD, PT #### [facility] [address] [place] [address] Prosthodontist/Educator: Romel Clemons MD Monocytes (Bld) [#/Vol] 0.64 10*3/uL Normal 0.10-1.20 [facility] Comment on above: Performed By: #### B MARK FORD, PT #### [facility] [address] [place] [address] Prosthodontist/Educator: Romel Clemons MD Monocytes/100 WBC (Bld) 13 % High 3-12 [facility] Comment on above: Performed By: #### B MARK FORD, PT #### [address] [address] Prosthodontist/Educator: Romel Clemons MD Neutrophil (Seg) 63 % Normal 36-65 [facility] Comment on above: Performed By: #### B MRAK FORD, PT #### [address] [address] Prosthodontist/Educator: Romel Clemons MD NRBC Automated 0.0 per 100 WBC Normal 0.0 [facility] Comment on above: Performed By: #### B MARK FORD, PT #### [address] [address] Prosthodontist/Educator: Romel Clemons MD Platelet mean volume (Bld) [Entitic vol] 9.3 fL Normal 8.1-13.5 [facility] Comment on above: Performed By: #### B MARK FORD, PT #### [address] [address] Prosthodontist/Educator: Romel Clemons MD Platelets (Bld) [#/Vol] 296 10*3/uL Normal 138-453 [facility] Comment on above: Performed By: #### B MARK FORD, PT #### [address] [address] Prosthodontist/Educator: Romel Clemons MD RBC (Bld) [#/Vol] 2.80 10*6/uL Low 3.95-5.11 [facility] Comment on above: Performed By: #### B MARK FORD, PT #### [address] [address] Prosthodontist/Educator: Romel Clemons MD WBC (Bld) [#/Vol] 4.8 10*3/uL Normal 3.5-11.3 [facility] Comment on above: Performed By: #### B MP, CDP, PT #### [employer] [address] [place] [address] [phone] Prosthodontist/Educator: Romel Clemons MD MRSA DNA Probe, Nasalon MRSA, DNA, Nasal Negative NEGATIVE [facility] Comment on above: NEGATIVE: MRSA DNA n ot detected by nucleic acid amplification. Results should be used as an adjunct to nosocomial control efforts to identify patients needing enhanced precautions. The test is not intended to identify patients with staphylococcal infections. Results should not be used to guide or monitor treatment for MRSA infections. Specimen Description .NASAL SWAB [facility] MRSA, DNA, Nasalon MRSA, DNA, Nasal Negative Normal NEG [facility] Comment on above: Result Comment: NEGA [...] Performed By: #### H EPXA, PT #### [employer] [address] [place] [address] [phone] Prosthodontist/Educator: Romel Clemons MD PTon 04-23-2023 INR Coag (PPP) [Relative time] 1.4 {INR} Normal [facility] Comment on above: Result Comment: Therapeutic Range: Moderate Anticoagulant Intensity: INR = 2.0-3.0 High Anticoagulant Intensity: INR = 2.5-3.5 Performed By: #### H EPXA, PT #### [employer] [address] [place] [address] Prosthodontist/Educator: Romel Clemons MD PT Coag (PPP) [Time] 16.8 s High 11.7-14.9 [facility] Comment on above: Performed By: #### H EPXA, PT #### [employer] [address] [place] [address] Prosthodontist/Educator: Romel Clemons MD Protime-INRon 04-23-2023 INR Coag (PPP) [Relative time] 1.4 {INR} [facility] Comment on above: Therapeutic Range: Moderate Anticoagulant Intensity: INR = 2.0-3.0 High Anticoagulant Intensity: INR = 2.5-3.5 Interpretation and review of laboratory results Abnormal [facility] PT Coag (PPP) [Time] 16.8 s High [facility] Specimen Rejectionon 024 Reason for rejection DUPLICATE ORDER Normal [facility] Comment on above: Performed By: #### H EPXA, PT #### [employer] [address] [place], [place] [phone] Prosthodontist/Educator: Romel Clemons MD Source of sample .BLOOD Normal [facility] Comment on above: Performed By: #### H EPXA, PT #### [employer] [address] [place] [address] Prosthodontist/Educator: Romel Clemons MD Test ordered PT [facility] Comment on above: Performed By: #### H EPXA, PT #### [employer] [address] [place], [place] [phone] Prosthodontist/Educator: Romel Clemons MD Anti-Xa, Unfractionated Hepa rinon 04-22-2023 Anti-XA Unfrac Heparin 0.33 IU/L [facility] Anti-XA Unfrac Heparin 0.18 IU/L [facility] Basic Metabolic Panelon Anion gap [Moles/Vol] 8 mmol/L Low 9 - 17 mmol/L [facility] Calcium [Mass/Vol] 8.2 mg/dL Low 8.6 - 10. 4 mg/dL [facility] Chloride [Moles/Vol] 101 mmol/L 98 - 10 7 mmol/L [facility] CO2 [Moles/Vol] 27 mmol/L 20 - 31 mmol/L [facility] Creatinine [Mass/Vol] 0.5 mg/dL 0.5 - 0.9 mg/dL [facility] GFR/1.73 sq M.predicted MDRD (S/P/Bld) [Vol rate/Area] - PINF [facility] Comment on above: These results are not [...] 136 mg/dL High 70 - 99 mg/dL [facility] Interpretation and review of laboratory results Abnormal [facility] Potassium [Moles/Vol] 4.0 mmol/L 3.7 - 5.3 mmol/L [facility] Sodium [Moles/Vol] 136 mmol/L 135 - 144 mmol/L [facility] Urea nitrogen [Mass/Vol] 11 mg/dL 6 - 20 mg/dL [facility] Basic Metabolic Profon 04-22 Anion gap [Moles/Vol] 8 mmol/L Low 9-17 [facility] Comment on above: Performed By: #### T ROPI, BMP, CDP, HEPXA #### [employer] [facility] [place] [address] Prosthodontist/Educator: Romel Clemons MD Calcium [Mass/Vol] 8.2 mg/dL Low 8.6-10.4 [facility] Comment on above: Performed By: #### T ROPI, BMP, CDP, HEPXA #### [employer] [address] [place] [address] Prosthodontist/Educator: Romel Clemons MD Chloride [Moles/Vol] 101 mmol/L Normal 98-107 [facility] Comment on above: Performed By: #### T ROPI, BMP, CDP, HEPXA #### [employer] [address] [place], [place] [phone] Prosthodontist/Educator: Romel Clemons MD CO2 [Moles/Vol] 27 mmol/L Normal 20-31 [facility] Comment on above: Performed By: #### T ROPI, BMP, CDP, HEPXA #### [facility] [address] [place] [address] [phone] Prosthodontist/Educator: Romel Clemons MD Creatinine [Mass/Vol] 0.5 mg/dL Normal 0.5-0.9 [facility] Comment on above: Performed By: #### T ROPI, BMP, CDP, HEPXA #### [address] [phone] Prosthodontist/Educator: Romel Clemons MD GFR/1.73 sq M.predicted among non-blacks MDRD (S/P/Bld) [Vol rate/Area] mL/min/{1.73_m2} Normal >60 [facility] Comment on above: Result Comment: These [...] #### T LINDSAY, BMP, CDP, HEPXA #### [facility] [address] [place] [address] Prosthodontist/Educator: Romel Clemons MD Glucose [Mass/Vol] 136 mg/dL High 70-99 [facility] Comment on above: Performed By: #### T ROPI, BMP, CDP, HEPXA #### [facility] [address] [place] [address] [phone] Prosthodontist/Educator: Romel Clemons MD Potassium [Moles/Vol] 4.0 mmol/L Normal 3.7-5.3 [facility] Comment on above: Performed By: #### T ROPI, BMP, CDP, HEPXA #### [facility] [address] [place], [place] [phone] Prosthodontist/Educator: Romel Clemons MD Sodium [Moles/Vol] 136 mmol/L Normal 135-144 [facility] Comment on above: Performed By: #### T ROPI, BMP, CDP, HEPXA #### [facility] [address] [place], [place] [phone] Prosthodontist/Educator: Romel Clemons MD Urea nitrogen [Mass/Vol] 11 mg/dL Normal 6-20 [facility] Comment on above: Performed By: #### T ROPI, BMP, CDP, HEPXA #### [facility] [facility] [address] [place], [place] [phone] Prosthodontist/Educator: Romel Clemons MD CBC with Auto Differentialon 04-22-2023 Basophils (Bld) [#/Vol] [facility] Basophils/100 WBC (Bld) 0 % 0 - 2 % [facility] Eosinophils (Bld) [#/Vol] [facility] Eosinophils/100 WBC (Bld) 0 % Low 1 - 4 % [facility] Erythrocyte distribution width (RBC) [Ratio] 14.0 % 11.8 - 14.4 % [facility] Hematocrit (Bld) [Volume fraction] 27.2 % Low 36.3 - 47.1 % [facility] Hemoglobin (Bld) [Mass/Vol] 8.5 g/dL Low 11.9 - 15.1 g/dL [facility] Immature granulocytes (Bld) [#/Vol] 0.05 10*3/uL [facility] Immature granulocytes/100 WBC (Bld) 1 % High 0 [facility] Interpretation and review of laboratory results Abnormal [facility] Lymphocytes/100 WBC (Bld) 17 % Low 24 - 43 % [facility] Lymphocytes/100 WBC (Bld) 0.98 % Low [facility] MCH (RBC) [Entitic mass] 30.4 pg 25.2 - 33.5 pg [facility] MCHC (RBC) [Mass/Vol] 31.3 g/dL 28.4 - 34.8 g/dL [facility] MCV (RBC) [Entitic vol] 97.1 fL 82.6 - 102.9 fL [facility] Monocytes/100 WBC (Bld) 15 % High 3 - 12 % [facility] Monocytes/100 WBC (Bld) 0.87 % [facility] Neutrophils/100 WBC (Bld) 67 % High 36 - 65 % [facility] Nucleated RBC/100 WBC (Bld) [Ratio] 0.0 % 0.0 per 100 WBC [facility] Platelet mean volume (Bld) [Entitic vol] 9.5 fL 8.1 - 13.5 fL [facility] Platelets (Bld) [#/Vol] 248 10*3/uL [facility] RBC (Bld) [#/Vol] 2.80 10*6/uL Low 3.95 - 5.1 1 m/uL [facility] [employer] Segmented neutrophils/100 WBC (Bld) 3.92 % [facility] WBC other (Bld) [#/Vol] 5.8 [facility] CBC with Diffon 04-22-2023 Abs. Basophil <0.03 Normal 0.00-0.20 [facility] Comment on above: Performed By: #### T ROPI, BMP, CDP, HEPXA #### [employer] [facility] [place] [phone] Prosthodontist/Educator: Romel Clemons MD Abs. Eosinophil <0.03 Normal 0.00-0.44 [facility] Comment on above: Performed By: #### T ROPI, BMP, CDP, HEPXA #### [employer] [address] [place] [phone] Prosthodontist/Educator: Romel Clemons MD Abs.Imm.Granulocyte 0.05 k/uL Normal 0.00-0.30 [facility] Comment on above: Performed By: #### T ROPI, BMP, CDP, HEPXA #### [employer] [address] [place] [phone] Prosthodontist/Educator: Romel Clemons MD Abs.Neutrophil (Seg) 3.92 k/uL Normal 1.50-8.10 [facility] Comment on above: Performed By: #### T ROPI, BMP, CDP, HEPXA #### [facility] [address] [place] [address] Prosthodontist/Educator: Romel Clemons MD Basophils/100 WBC (Bld) 0 % Normal 0-2 [facility] Comment on above: Performed By: #### T ROPI, BMP, CDP, HEPXA #### [facility] [address] [place] [phone] Prosthodontist/Educator: Romel Clemons MD Eosinophils/100 WBC (Bld) 0 % Low 1-4 [facility] Comment on above: Performed By: #### T ROPI, BMP, CDP, HEPXA #### [facility] [address] [place] [address] Prosthodontist/Educator: Romel Clemons MD Erythrocyte distribution width (RBC) [Ratio] 14.0 % Normal 11.8-14.4 [facility] Comment on above: Performed By: #### T ROPI, BMP, CDP, HEPXA #### [facility] [address] [place] [address] Prosthodontist/Educator: Romel Clemons MD Hematocrit (Bld) [Volume fraction] 27.2 % Low 36.3-47.1 [facility] Comment on above: Performed By: #### T ROPI, BMP, CDP, HEPXA #### [facility] [address] [place] [address] Prosthodontist/Educator: Romel Clemons MD Hemoglobin (Bld) [Mass/Vol] 8.5 g/dL Low 11.9-15.1 [facility] Comment on above: Performed By: #### T ROPI, BMP, CDP, HEPXA #### [address] [address] Prosthodontist/Educator: Romel Clemons MD Immature granulocytes/100 WBC (Bld) 1 % High 0 [facility] Comment on above: Performed By: #### T ROPI, BMP, CDP, HEPXA #### [address] [address] Prosthodontist/Educator: Romel Clemons MD Lymphocytes (Bld) [#/Vol] 0.98 10*3/uL Low 1.10-3.70 [facility] Comment on above: Performed By: #### T ROPI, BMP, CDP, HEPXA #### [address] [address] Prosthodontist/Educator: Romel Clemons MD Lymphocytes/100 WBC (Bld) 17 % Low 24-43 [facility] Comment on above: Performed By: #### T ROPI, BMP, CDP, HEPXA #### [facility] [address] [place] [address] Prosthodontist/Educator: Romel Clemons MD MCH (RBC) [Entitic mass] 30.4 pg Normal 25.2-33.5 [facility] Comment on above: Performed By: #### T ROPI, BMP, CDP, HEPXA #### [address] [address] Prosthodontist/Educator: Romel Clemons MD MCHC (RBC) [Mass/Vol] 31.3 g/dL Normal 28.4-34.8 [facility] Comment on above: Performed By: #### T ROPI, BMP, CDP, HEPXA #### [facility] [address] [place] [address] Prosthodontist/Educator: Romel Clemons MD MCV (RBC) [Entitic vol] 97.1 fL Normal 82.6-102.9 [facility] Comment on above: Performed By: #### T ROPI, BMP, CDP, HEPXA #### [address] [address] Prosthodontist/Educator: Romel Clemons MD Monocytes (Bld) [#/Vol] 0.87 10*3/uL Normal 0.10-1.20 [facility] Comment on above: Performed By: #### T ROPI, BMP, CDP, HEPXA #### [address] [address] Prosthodontist/Educator: Romel Clemons MD Monocytes/100 WBC (Bld) 15 % High 3-12 [facility] Comment on above: Performed By: #### T ROPI, BMP, CDP, HEPXA #### [address] [address] Prosthodontist/Educator: Romel Clemons MD Neutrophil (Seg) 67 % High 36-65 [facility] Comment on above: Performed By: #### T ROPI, BMP, CDP, HEPXA #### [address] [address] Prosthodontist/Educator: Romel Clemons MD NRBC Automated 0.0 per 100 WBC Normal 0.0 [facility] Comment on above: Performed By: #### T ROPI, BMP, CDP, HEPXA #### [address] [address] Prosthodontist/Educator: Romel Clemons MD Platelet mean volume (Bld) [Entitic vol] 9.5 fL Normal 8.1-13.5 [facility] Comment on above: Performed By: #### T ROPI, BMP, CDP, HEPXA #### [facility] [address] [place] [address] Prosthodontist/Educator: Romel Clemons MD Platelets (Bld) [#/Vol] 248 10*3/uL Normal 138-453 [facility] Comment on above: Performed By: #### T ROPI, BMP, CDP, HEPXA #### [facility] [address] [place] [address] Prosthodontist/Educator: Romel Clemons MD RBC (Bld) [#/Vol] 2.80 10*6/uL Low 3.95-5.11 [facility] Comment on above: Performed By: #### T ROPI, BMP, CDP, HEPXA #### [facility] [address] [place] [address] Prosthodontist/Educator: Romel Clemons MD WBC (Bld) [#/Vol] 5.8 10*3/uL Normal 3.5-11.3 [facility] Comment on above: Performed By: #### T ROPI, BMP, CDP, HEPXA #### [facility] [address] [place] [address] Prosthodontist/Educator: Romel Clemons MD EKG 12 LeadOrdered By: Haven Marshall on 04-22-2023 Atrial Rate 106 BPM [employer] Work Phone: P [place] 5 degrees [employer] Work Phone: P-R Interval 128 ms [employer] [employer] Work Phone: Q-T Interval 346 ms [employer] Work Phone: QRS Duration 94 ms [employer] Work Phone: QTc Calculation (Bazett) 459 ms [facility] [employer] Work Phone: R [place] -4 degrees [employer] Work Phone: T [place] -5 degrees [employer] Work Phone: Ventricular Rate 106 BPM [facility] [employer] Work Phone: [facility] [employer] Work Phone: EKG 12 Leadon 04-22-2023 Sinus tachycardia Voltage criteria for left ventricular hypertrophy Inferior infarct , age undetermined Abnormal ECG No previous ECGs available [facility] Haven Diop MD - 04/22/2023 Sinus tachycardia Voltage criteria for left ventricular hypertrophy Inferior infarct , age undetermined Abnormal ECG No previous ECGs available [facility] Normal sinus rhythm Moderate voltage criteria for LVH, may be normal variant Possible Inferior infarct , age undetermined Abnormal ECG No previous ECGs available [facility] Andrea Tadeo MD - 04/22/2023 Normal sinus rhythm Moderate voltage criteria for LVH, may be normal variant Possible Inferior infarct , age undetermined Abnormal ECG No previous ECGs available [facility] Atrial Rate 88 BPM [facility] P [place] 59 degrees [facility] P-R Interval 144 ms [facility] Q-T Interval 390 ms [facility] QRS Duration 86 ms [facility] QTc Calculation (Bazett) 471 ms [facility] R [place] 11 degrees [facility] T [place] 19 degrees [facility] Ventricular Rate [address] [facility] Normal sinus rhythm Nonspecific T wave abnormality Prolonged QT Abnormal ECG When compared with ECG of 21-APR-2023 17:03, Borderline criteria for Inferior infarct are no longer Present [facility] STAndrea Neal MD - 04/22/2023 Normal sinus rhythm Nonspecific T wave abnormality Prolonged QT Abnormal ECG When compared with ECG of 21-APR-2023 17:03, Borderline criteria for Inferior infarct are no longer Present [facility] EKG 12 LeadOrdered By: Andrea Mcknight on 04-22-2023 Atrial Rate 99 BPM [facility] Work Phone: P [place] 56 degrees [facility] Work Phone: P-R Interval 146 ms [facility] Work Phone: Q-T Interval 348 ms [facility] Work Phone: QRS Duration 90 ms [facility] Work Phone: QTc Calculation (Bazett) 446 ms [facility] Work Phone: R [place] 6 degrees [employer] Work Phone: T [place] 20 degrees [employer] Work Phone: Ventricular Rate 99 BPM [facility] [employer] Work Phone: [facility] [employer] Work Phone: Echo (TTE) complete (PRN con trast/bubble/strain/3D)Ordered By: Deejay Choe on 04-22-2023 Ao Root Index 1.35 cm/m2 [facility] [employer] Phone: Aortic Root 3.0 cm [employer] Phone: AV Area by Peak Velocity 2.2 cm2 [employer] Phone: AV Area by VTI 2.3 cm2 [facility] [employer] Phone: AV Mean Gradient 4 mmHg [facility]ON [facility] [employer] Work Phone: AV Mean Velocity 0.9 m/s AMY CARDOSOO MANOLO [employer] Phone: AV Peak Gradient 8 mmHg AMY [employer] Phone: AV Peak Velocity 1.5 m/s AMY FRENCH [employer] Phone: AV Velocity Ratio 0.67 [employer] NEAL [employer] Phone: AV VTI 24.0 cm AMY [employer] Phone: DEMETRIUS/BSA Peak Velocity 1.0 cm2/m2 [facility] [employer] Phone: DEMETRIUS/BSA VTI 1.0 cm2/m2 [employer] Phone: Body surface area Derived from formula 2.29 m2 [employer] Phone: E/E' Lateral 5.08 [employer] Phone: E/E' Ratio (Averaged) 5.54 [employer] Phone: EF BP 65 % 55 - 100 % [employer] Phone: Fractional Shortening 2D 18 % 28 - 44 % [employer] Phone: Interpretation and review of laboratory results Abnormal [employer] Phone: IVSd 1.0 cm Abnormal 0.6 - 0.9 cm [employer] Phone: LA Area 2C 14.4 cm2 [employer] Phone: LA Area 4C 15.7 cm2 [employer] Phone: LA Diameter 3.4 cm [employer] Phone: LA Major [place] 5.8 cm [employer] Phone: LA Minor [place] 5.0 cm [employer] Phone: LA Size Index 1.52 cm/m2 [employer] Phone: LA Volume BP 36 mL 22 - 52 mL [employer] Phone: LA Volume Index BP 16 ml/m2 16 - 34 ml/m2 [employer] Phone: LA Volume Index MOD A2C 15 ml/m2 Abnormal 16 - 34 ml/m2 [employer] Phone: LA Volume Index MOD A4C 15 ml/m2 Abnormal 16 - 34 ml/m2 [employer] Phone: LA Volume MOD A2C 34 mL 22 - 52 mL [employer] Phone: LA Volume MOD A4C 34 mL 22 - 52 mL [employer] Phone: LA/AO Root Ratio 1.13 [employer]ON [employer] Phone: LV E' Lateral Velocity 13 cm/s [employer] Phone: LV E' Septal Velocity 11 cm/s [employer] Work Phone: LV EDV A2C 59 mL [employer] Work Phone: LV EDV A4C 76 mL [employer] Work Phone: LV EDV Index A2C 26 mL/m2 [facility] [employer] Work Phone: LV EDV Index A4C 34 mL/m2 [employer] Work Phone: LV Ejection Fraction A2C 60 % [employer] Work Phone: LV Ejection Fraction A4C 70 % [employer] Work Phone: LV ESV A2C 24 mL [employer] Work Phone: LV ESV A4C 23 mL [employer] Work Phone: LV ESV Index A2C 11 mL/m2 [facility] [employer] Work Phone: LV ESV Index A4C 10 mL/m2 [employer]ON [employer] Work Phone: LV Mass 2D 147.8 g 67 - 162 g [employer] Work Phone: LV Mass 2D Index 66.3 g/m2 43 - 95 g/m2 [employer] Work Phone: LV RWT Ratio 0.45 [employer] Work Phone: LVIDd 4.4 cm 3.9 - 5.3 cm [employer] Work Phone: LVIDd Index 1.97 cm/m2 [employer] Work Phone: LVIDs 3.6 cm [employer] Work Phone: LVIDs Index 1.61 cm/m2 [employer] Work Phone: LVOT Area 3.1 cm2 [employer] Work Phone: LVOT Diameter 2.0 cm [employer] Work Phone: LVOT Mean Gradient 2 mmHg [employer] [employer] Work Phone: LVOT Peak Gradient 4 mmHg [employer] Work Phone: LVOT Peak Velocity 1.0 m/s [employer] Work Phone: LVOT Stroke Volume Index 24.2 mL/m2 [employer] Work Phone: LVOT SV 54.0 ml [employer] Work Phone: LVOT VTI 17.2 cm [employer] Work Phone: LVOT:AV VTI Index 0.72 [facility] [employer] [employer] Work Phone: LVPWd 1.0 cm Abnormal 0.6 - 0.9 cm [employer] Work Phone: MV A Velocity 0.78 m/s [employer] Work Phone: MV Area by VTI 2.3 cm2 [facility] [employer] [employer] Work Phone: MV E Velocity 0.66 m/s [employer] Work Phone: MV E Wave Deceleration Time 204.0 ms [employer] Work Phone: MV E/A 0.85 [employer] Work Phone: MV Max Velocity 0.9 m/s [facility] [employer] Work Phone: MV Mean Gradient 1 mmHg [facility] [employer] [employer] Work Phone: MV Mean Velocity 0.5 m/s [employer] [employer] Work Phone: MV Peak Gradient 3 mmHg [employer] Work Phone: MV VTI 23.1 cm [employer] Work Phone: MV:LVOT VTI Index 1.34 [facility] [employer] Work Phone: PV Max Velocity 0.9 m/s AMY SECOU RS [employer] Work Phone: PV Peak Gradient 3 mmHg AMY SECO [employer] Work Phone: RV Basal Dimension 3.7 cm [facility] [employer] [employer] Work Phone: RV Free Wall Peak S' 11 cm/s AMY ABRAHAM [employer] Work Phone: TAPSE 1.7 cm 1.7 cm [facility]Y [employer] Work Phone: AMY ABRAH[employer] Work Phone: Echo (TTE) complete (PRN con [...] The left ventricular wall motion is normal. [facility] CV CPACS Radiology Study observation (narrative) [employer] [employer] Heparin Anti-Xaon 04-22-2023 Heparin Anti-Xa 0.33 IU/L Normal [facility] Comment on above: Performed By: #### H EPXA #### [facility] [address] [place] [address] Prosthodontist/Educator: Romel Clemons MD Heparin Anti-Xa 0.18 IU/L Normal [facility] Comment on above: Performed By: #### B MARK FORD, PT #### [facility] [address] [place] [address] Prosthodontist/Educator: Romel Clemons MD Heparin Anti-Xa 1.12 IU/L Normal [facility] Comment on above: Performed By: #### H EPXA, PT #### [facility] [address] [place] [address] Prosthodontist/Educator: Romel Clemons MD Troponinon 04-22-2023 Troponin, High Sens 121 ng/L Critically high 0-14 [facility] Comment on above: Result Comment: High Sensitivity Troponin values cannot be compared with other Troponin methodologies. Previous Alert Value Reported Performed By: #### H EPXA, PT #### [facility] [address] [place] [address] Prosthodontist/Educator: Romel Clemons MD Interpretation and review of laboratory results Abnormal [facility] Troponin I.cardiac High sensitivity method [Mass/Vol] 121 ng/L Critically high 0 - 14 ng/L [facility] Comment on above: High Sensitivity Tro ponin values cannot be compared with other Troponin methodologies. Previous Alert Value Reported [facility] Troponin, High Sens 144 ng/L Critically high 0-14 [facility] Comment on above: Result Comment: High Sensitivity Troponin values cannot be compared with other Troponin methodologies. Previous Alert Value Reported Performed By: #### B LOGAN, CDP, PT #### [facility] [address] [place] [address] Prosthodontist/Educator: Romel Clemons MD Interpretation and review of laboratory results Abnormal [facility] Troponin I.cardiac High sensitivity method [Mass/Vol] 144 ng/L Critically high 0 - 14 ng/L [facility] Comment on above: High Sensitivity Tro ponin values cannot be compared with other Troponin methodologies. Previous Alert Value Reported [facility] Troponin, High Sens 178 ng/L Critically high 0-14 [facility] Comment on above: Result Comment: High Sensitivity Troponin values cannot be compared with other Troponin methodologies. Previous Alert Value Reported Performed By: #### T ROPI, BMP, CDP, HEPXA #### [facility] [address] [place] [address] Prosthodontist/Educator: Romel Clemons MD Interpretation and review of laboratory results Abnormal [facility] Troponin I.cardiac High sensitivity method [Mass/Vol] 178 ng/L Critically high 0 - 14 ng/L [facility] Comment on above: High Sensitivity Tro ponin values cannot be compared with other Troponin methodologies. Previous Alert Value Reported [facility] Troponin, High Sens 281 ng/L Critically high 0-14 [facility] Comment on above: Result Comment: High Sensitivity Troponin values cannot be compared with other Troponin methodologies. Previous Alert Value Reported Performed By: #### B MP, CDP, PT #### [facility] [address] [place] [address] Prosthodontist/Educator: Romel Clemons MD Interpretation and review of laboratory results Abnormal [facility] Troponin I.cardiac High sensitivity method [Mass/Vol] 281 ng/L Critically high 0 - 14 ng/L [facility] Comment on above: High Sensitivity Tro ponin values cannot be compared with other Troponin methodologies. Previous Alert Value Reported [facility] [employer] Vascular duplex lower extrem ity venous bilateralOrdered By: Bakari Richardson on 04-22-2023 Body surface area Derived from formula 2.29 m2 [facility] [employer] Work Phone: [facility] [employer] Work Phone: Vascular duplex lower extrem ity [...] Vein: Patent, compressible. Tibioperoneal Trunk: Acute thrombus. Rapid Outsole Stitcher Details A chung scale, color Doppler imaging and spectral Doppler analysis ultrasound was performed. During the study longitudinal and transverse views were obtained. Pulsed wave doppler was performed. Overall the study quality was limited. Study was technically difficult due to: bedside exam, diffuse subcutaneous edema and edema. [facility] CV CPACS Radiology Study observation (narrative) [facility] APTTon 04-21-2023 aPTT Coag (Bld) [Time] s Critically high 23.0-36.5 [facility] Comment on above: Result Comment: IV Heparin Therapy Range: 66.0-92.0 sec Performed By: #### B MP, CDP, PT #### [facility] [address] [place] [address] Prosthodontist/Educator: Romel Clemons MD APTT Critically high [facility] Comment on above: IV Heparin Therapy Range: 66.0-92.0 sec Interpretation and review of laboratory results Abnormal [facility] Anti-Xa, Unfractionated Hepa rinon 04-21-2023 Anti-XA Unfrac Heparin 1.12 IU/L [facility] Anti-XA Unfrac Heparin 0.65 IU/L [facility] Brain Natri. Peptideon 04-21 Natriuretic peptide B (Bld) [Mass/Vol] 367 pg/mL High <300 [facility] Comment on above: Result Comment: An age-independent cutoff point of 300 pg/ml has a 98% negative predictive value excluding acute heart failure. Performed By: #### H EPXA, PT #### [facility] [address] [place] [address] Prosthodontist/Educator: Romel Clemons MD Brain Natriuretic Peptideon 04-21-2023 Interpretation and review of laboratory results Abnormal [facility] Natriuretic peptide B (Bld) [Mass/Vol] 367 pg/mL High NINF - 300 pg/mL [facility] Comment on above: An age-independent cutoff point of 300 pg/ml has a 98% negative predictive value excluding acute heart failure. [facility] CBC with Auto Differentialon 04-21-2023 Basophils (Bld) [#/Vol] 0.00 10*3/uL [facility] Basophils/100 WBC (Bld) 0 % 0 - 2 % [facility] Eosinophils (Bld) [#/Vol] 0.00 10*3/uL [facility] Eosinophils/100 WBC (Bld) 0 % Low 1 - 4 % [facility] Erythrocyte distribution width (RBC) [Ratio] 14.2 % 11.8 - 14.4 % [facility] Hematocrit (Bld) [Volume fraction] 30.2 % Low 36.3 - 47.1 % [facility] Hemoglobin (Bld) [Mass/Vol] 9.4 g/dL Low 11.9 - 15.1 g/dL [facility] Immature granulocytes (Bld) [#/Vol] 0.08 10*3/uL [facility] Immature granulocytes/100 WBC (Bld) 1 % High 0 [facility] Interpretation and review of laboratory results Abnormal [facility] Lymphocytes/100 WBC (Bld) 5 % Low 24 - 44 % [facility] Lymphocytes/100 WBC (Bld) 0.40 % Low [facility] MCH (RBC) [Entitic mass] 30.2 pg 25.2 - 33.5 pg [facility] MCHC (RBC) [Mass/Vol] 31.1 g/dL 28.4 - 34.8 g/dL [facility] MCV (RBC) [Entitic vol] 97.1 fL 82.6 - 102.9 fL [facility] Monocytes/100 WBC (Bld) 6 % 1 - 7 % [facility] Monocytes/100 WBC (Bld) 0.48 % [facility] Morphology Maciej (Bld) [Interp] Normal [facility] Neutrophils/100 WBC (Bld) 88 % High 36 - 66 % [facility] Nucleated RBC/100 WBC (Bld) [Ratio] 0.0 % 0.0 per 100 WBC [facility] Platelet mean volume (Bld) [Entitic vol] 9.3 fL 8.1 - 13.5 fL [facility] Platelets (Bld) [#/Vol] 284 10*3/uL [facility] RBC (Bld) [#/Vol] 3.11 10*6/uL Low 3.95 - 5.1 1 m/uL [facility] Segmented neutrophils/100 WBC (Bld) 7.04 % [facility] WBC other (Bld) [#/Vol] 8.0 [facility] CBC with Diffon 04-21-2023 Abs. Basophil 0.00 k/uL Normal 0.0-0.2 [facility] Comment on above: Performed By: #### H EPXA, PT #### [facility] [address] [place] [address] [id number] Prosthodontist/Educator: Romel Clemons MD Abs.Imm.Granulocyte 0.08 k/uL Normal 0.00-0.30 [facility] Comment on above: Performed By: #### H EPXA, PT #### [facility] [address] [place] [address] Prosthodontist/Educator: Romel Clemons MD Abs.Neutrophil (Seg) 7.04 k/uL Normal 1.8-7.7 [facility] Comment on above: Performed By: #### H EPXA, PT #### [facility] [address] [place] [address] Prosthodontist/Educator: Romel Clemons MD Basophils/100 WBC (Bld) 0 % Normal 0-2 [facility] Comment on above: Performed By: #### H EPXA, PT #### [facility] [address] [place] [address] Prosthodontist/Educator: Romel Clemons MD Eosinophils (Bld) [#/Vol] 0.00 10*3/uL Normal 0.0-0.4 [facility] Comment on above: Performed By: #### H EPXA, PT #### [address] [address] Prosthodontist/Educator: Romel Clemons MD Eosinophils/100 WBC (Bld) 0 % Low 1-4 [facility] Comment on above: Performed By: #### H EPXA, PT #### [address] [address] Prosthodontist/Educator: Romel Clemons MD Immature granulocytes/100 WBC (Bld) 1 % High 0 [facility] Comment on above: Performed By: #### H EPXA, PT #### [facility] [address] [place] [address] Prosthodontist/Educator: Romel Clemons MD Lymphocytes (Bld) [#/Vol] 0.40 10*3/uL Low 1.0-4.8 [facility] Comment on above: Performed By: #### H EPXA, PT #### [facility] [address] [place] [address] Prosthodontist/Educator: Romel Clemons MD Lymphocytes/100 WBC (Bld) 5 % Low 24-44 [facility] Comment on above: Performed By: #### H EPXA, PT #### [address] [address] Prosthodontist/Educator: Romel Clemons MD Monocytes (Bld) [#/Vol] 0.48 10*3/uL Normal 0.1-0.8 [facility] Comment on above: Performed By: #### H EPXA, PT #### [address] [address] Prosthodontist/Educator: Romel Clemons MD Monocytes/100 WBC (Bld) 6 % Normal 1-7 [facility] Comment on above: Performed By: #### H EPXA, PT #### [address] [address] Prosthodontist/Educator: Romel Clemons MD Morphology Maciej (Bld) [Interp] Normal Normal [facility] Comment on above: Performed By: #### H EPXA, PT #### [address] [address] Prosthodontist/Educator: Romel Clemons MD Neutrophil (Seg) 88 % High 36-66 [facility] Comment on above: Performed By: #### H EPXA, PT #### [address] [address] Prosthodontist/Educator: Romel Clemons MD Erythrocyte distribution width (RBC) [Ratio] 14.2 % Normal 11.8-14.4 [facility] Comment on above: Performed By: #### H EPXA, PT #### [address] [address] Prosthodontist/Educator: Romel Clemons MD Hematocrit (Bld) [Volume fraction] 30.2 % Low 36.3-47.1 [facility] Comment on above: Performed By: #### H EPXA, PT #### [address] [address] Prosthodontist/Educator: Romel Clemons MD Hemoglobin (Bld) [Mass/Vol] 9.4 g/dL Low 11.9-15.1 [facility] Comment on above: Performed By: #### H EPXA, PT #### [address] [address] Prosthodontist/Educator: Romel Clemons MD MCH (RBC) [Entitic mass] 30.2 pg Normal 25.2-33.5 [facility] Comment on above: Performed By: #### H EPXA, PT #### [address] [address] Prosthodontist/Educator: Romel Clemons MD MCHC (RBC) [Mass/Vol] 31.1 g/dL Normal 28.4-34.8 [facility] Comment on above: Performed By: #### H EPXA, PT #### [address] [address] Prosthodontist/Educator: Romel Clemons MD MCV (RBC) [Entitic vol] 97.1 fL Normal 82.6-102.9 [facility] Comment on above: Performed By: #### H EPXA, PT #### [address] [address] Prosthodontist/Educator: Romel Clemons MD NRBC Automated 0.0 per 100 WBC Normal 0.0 [facility] Comment on above: Performed By: #### H EPXA, PT #### [facility] [address] [place] [address] Prosthodontist/Educator: Romel Clemons MD Platelet mean volume (Bld) [Entitic vol] 9.3 fL Normal 8.1-13.5 [facility] Comment on above: Performed By: #### H EPXA, PT #### [facility] [address] [place] [address] Prosthodontist/Educator: Romel Clemons MD Platelets (Bld) [#/Vol] 284 10*3/uL Normal 138-453 [facility] Comment on above: Performed By: #### H EPXA, PT #### [facility] [address] [place] [address] Prosthodontist/Educator: Romel Clemons MD RBC (Bld) [#/Vol] 3.11 10*6/uL Low 3.95-5.11 [facility] Comment on above: Performed By: #### H EPXA, PT #### [address] [address] Prosthodontist/Educator: Romel Clemons MD WBC (Bld) [#/Vol] 8.0 10*3/uL Normal 3.5-11.3 [facility] Comment on above: Performed By: #### H EPXA, PT #### [facility] [address] [place] [address] Prosthodontist/Educator: Romel Clemons MD Cath hemo interfaceon 2023 Body surface area Derived from formula 2.29 m2 [facility] Metabolic Profon 3 Albumin [Mass/Vol] 3.5 g/dL Normal 3.5-5.2 [facility] Comment on above: Performed By: #### H EPXA, PT #### [facility] [address] [place] [address] Prosthodontist/Educator: Romel Clemons MD Albumin/Glob Ratio 1.4 Normal 1.0-2.5 [facility] Comment on above: Performed By: #### H EPXA, PT #### [facility] [address] [place] [address] Prosthodontist/Educator: Romel Clemons MD Alkaline Phos 118 U/L High 35-104 [facility] Comment on above: Performed By: #### H EPXA, PT #### [employer] [address] [place] [address] Prosthodontist/Educator: Romel Clemons MD ALT [Catalytic activity/Vol] 20 U/L Normal 5-33 [facility] Comment on above: Performed By: #### H EPXA, PT #### [facility] [address] [place] [address] Prosthodontist/Educator: Romel Clemons MD Anion gap [Moles/Vol] 10 mmol/L Normal 9-17 [facility] Comment on above: Performed By: #### H EPXA, PT #### [facility] [address] [place] [address] Prosthodontist/Educator: Romel Clemons MD AST [Catalytic activity/Vol] 28 U/L Normal <32 [facility] Comment on above: Performed By: #### H EPXA, PT #### [facility] [address] [place] [address] Prosthodontist/Educator: Romel Clemons MD Bilirubin [Mass/Vol] 0.3 mg/dL Normal 0.3-1.2 [facility] Comment on above: Performed By: #### H EPXA, PT #### [facility] [address] [place] [address] Prosthodontist/Educator: Romel Clemons MD Calcium [Mass/Vol] 8.4 mg/dL Low 8.6-10.4 [facility] Comment on above: Performed By: #### H EPXA, PT #### [facility] [address] [place] [address] Prosthodontist/Educator: Romel Clemons MD Chloride [Moles/Vol] 99 mmol/L Normal 98-107 [facility] Comment on above: Performed By: #### H EPXA, PT #### [facility] [address] [place] [address] Prosthodontist/Educator: Romel Clemons MD CO2 [Moles/Vol] 25 mmol/L Normal 20-31 [facility] Comment on above: Performed By: #### H EPXA, PT #### [facility] [address] [place] [address] Prosthodontist/Educator: Romel Clemons MD Creatinine [Mass/Vol] 0.7 mg/dL Normal 0.5-0.9 [facility] Comment on above: Performed By: #### H EPXA, PT #### [facility] [address] [place] [address] Prosthodontist/Educator: Romel Clemons MD GFR/1.73 sq M.predicted among non-blacks MDRD (S/P/Bld) [Vol rate/Area] mL/min/{1.73_m2} Normal >60 [facility] Comment on above: Result Comment: These [...] Performed By: #### H EPXA, PT #### [facility] [address] [place] [address] Prosthodontist/Educator: Romel Clemons MD Glucose [Mass/Vol] 145 mg/dL High 70-99 [facility] Comment on above: Performed By: #### H EPXA, PT #### [facility] [address] [place] [address] Prosthodontist/Educator: Romel Clemons MD Potassium [Moles/Vol] 4.1 mmol/L Normal 3.7-5.3 [facility] Comment on above: Performed By: #### H EPXA, PT #### [facility] [address] [place] [address] Prosthodontist/Educator: Romel Clemons MD Protein [Mass/Vol] 6.0 g/dL Low 6.4-8.3 [facility] Comment on above: Performed By: #### H EPXA, PT #### [facility] [address] [place], [place] [phone] Prosthodontist/Educator: Romel Clemons MD Sodium [Moles/Vol] 134 mmol/L Low 135-144 [facility] Comment on above: Performed By: #### H EPXA, PT #### [facility] [address] [place], [place] [phone] Prosthodontist/Educator: Romel Clemons MD Urea nitrogen [Mass/Vol] 14 mg/dL Normal 6-20 [facility] Comment on above: Performed By: #### H EPXA, PT #### [facility] [address] [place], [place] [phone] Prosthodontist/Educator: Romel Clemons MD Comprehensive Metabolic Pane [facility] 04-21-2023 Albumin [Mass/Vol] 3.5 g/dL 3.5 - 5.2 g/dL [facility] Albumin/Globulin [Mass ratio] 1.4 {ratio} 1.0 - 2.5 [facility] ALP [Catalytic activity/Vol] 118 U/L High 35 - 104 U/L [facility] ALT [Catalytic activity/Vol] 20 U/L 5 - 33 U/L [facility] Anion gap [Moles/Vol] 10 mmol/L 9 - 17 mmol/L [facility] AST [Catalytic activity/Vol] 28 U/L NINF - 32 U/L [facility] Bilirubin [Mass/Vol] 0.3 mg/dL 0.3 - 1 .2 mg/dL [facility] Calcium [Mass/Vol] 8.4 mg/dL Low 8.6 - 10. 4 mg/dL [facility] Chloride [Moles/Vol] 99 mmol/L 98 - 10 7 mmol/L [facility] CO2 [Moles/Vol] 25 mmol/L 20 - 31 mmol/L [facility] Creatinine [Mass/Vol] 0.7 mg/dL 0.5 - 0.9 mg/dL [facility] GFR/1.73 sq M.predicted MDRD (S/P/Bld) [Vol rate/Area] - PINF [facility] Comment on above: These results are not [...] 145 mg/dL High 70 - 99 mg/dL [facility] Interpretation and review of laboratory results Abnormal [facility] Potassium [Moles/Vol] 4.1 mmol/L 3.7 - 5.3 mmol/L [facility] Protein [Mass/Vol] 6.0 g/dL Low 6.4 - 8.3 g/dL [facility] Sodium [Moles/Vol] 134 mmol/L Low 135 - 144 mmol/L [facility] Urea nitrogen [Mass/Vol] 14 mg/dL 6 - 20 mg/dL [facility] Heparin Anti-Xaon 04-21-2023 Heparin Anti-Xa 0.65 IU/L Normal [facility] Comment on above: Performed By: #### H EPXA, PT #### [facility] [address] [place] [address] [phone] Prosthodontist/Educator: Romel Clemons MD MRSA, DNA, Nasalon Specimen Description .NASAL SWAB Normal [facility] Comment on above: Performed By: #### H EPXA, PT #### [facility] [address] [place], [place] [phone] Prosthodontist/Educator: Romel Clemons MD PTon 04-21-2023 INR Coag (PPP) [Relative time] 1.4 {INR} Normal [facility] Comment on above: Result Comment: Therapeutic Range: Moderate Anticoagulant Intensity: INR = 2.0-3.0 High Anticoagulant Intensity: INR = 2.5-3.5 Performed By: #### H EPXA, PT #### [facility] [address] [place] [address] Prosthodontist/Educator: Romel Clemons MD PT Coag (PPP) [Time] 16.8 s High 11.7-14.9 [facility] Comment on above: Performed By: #### H EPXA, PT #### [facility] [address] [place], [place] [phone] Prosthodontist/Educator: Romel Clemons MD Protime-INRon 04-21-2023 INR Coag (PPP) [Relative time] 1.4 {INR} [facility] Comment on above: Therapeutic Range: Moderate Anticoagulant Intensity: INR = 2.0-3.0 High Anticoagulant Intensity: INR = 2.5-3.5 Interpretation and review of laboratory results Abnormal [facility] PT Coag (PPP) [Time] 16.8 s High [facility] Troponinon 04-21-2023 Troponin, High Sens 401 ng/L Critically high 0-14 [facility] Comment on above: Result Comment: High Sensitivity Troponin values cannot be compared with other Troponin methodologies. Previous Alert Value Reported Performed By: #### B MP, CDP, PT #### [facility] [address] [place] [address] [phone] Prosthodontist/Educator: Romel Clemons MD Troponin, High Sens 472 ng/L Critically high 0-14 [facility] Comment on above: Result Comment: High Sensitivity Troponin values cannot be compared with other Troponin methodologies. Previous Alert Value Reported Performed By: #### H EPXA #### [facility] [address] [place], [place] [phone] Prosthodontist/Educator: Romel Clemons MD Interpretation and review of laboratory results Abnormal [facility] Troponin I.cardiac High sensitivity method [Mass/Vol] 401 ng/L Critically high 0 - 14 ng/L [facility] Comment on above: High Sensitivity Tro ponin values cannot be compared with other Troponin methodologies. Previous Alert Value Reported [facility] Troponin, High Sens 573 ng/L Critically high 0-14 [facility] Comment on above: Result Comment: High Sensitivity Troponin values cannot be compared with other Troponin methodologies. Performed By: #### H EPXA, PT #### [facility] [address] [place] [address] Prosthodontist/Educator: Romel Clemons MD Interpretation and review of laboratory results Abnormal [facility] Troponin I.cardiac High sensitivity method [Mass/Vol] 472 ng/L Critically high 0 - 14 ng/L [facility] Comment on above: High Sensitivity Tro ponin values cannot be compared with other Troponin methodologies. Previous Alert Value Reported [facility] Interpretation and review of laboratory results Abnormal [facility] Troponin I.cardiac High sensitivity method [Mass/Vol] 573 ng/L Critically high 0 - 14 ng/L [facility] Comment on above: High Sensitivity Tro ponin values cannot be compared with other Troponin methodologies. [facility] Inpatient Clinical Summaryon 04-14-2023 Inpatient Clinical Summary [place] [address] Clinical Summary Person Information: Name: LEIZABETH SÁNCHEZ Age: 57 Years : 1965 Sex: Female PCP: CASSIE LORENZ MD Marital Status: Single Race: White Ethnicity: Non- or Language: Bolivian Visit Id: Visit Reason: RIGHT KNEE OA Speciality: Acuity: Enc Type: Inpatient Med Service: Medical Arrival: 04/05/2023 06:49:48 Discharge: 04/08/2023 16:15:00 Dispo Type: SNF w/ Medicare Cert Address: [address] [place] [id number] Provider Notes: Patient: ELIZABETH SÁNCHEZ Age: 57 [...] Daily, 0 Refill(s) potassium chloride (Potassium Chloride (Blq-Zecv-Zjv 10) 10 mEq oral tablet, extended release) 10 mEq, 1 tab(s), Oral, Daily, 0 Refill(s) sertraline (sertraline 25 mg Tab) 25 mg, 1 tab(s), Oral, Daily, 0 Refill(s) Stable course. D/C Kemp. ASA 325mg 4 weeks for DVTp. Mepilex. [...] Mouth every day. potassium chloride (Potassium Chloride (Lej-Rzit-Zhh 10) 10 mEq oral tablet, extended release) 1 Tablets By Mouth every day. sertraline (sertraline 25 mg Tab) 1 Tablets By Mouth every day. Care Team Members: Attending Physician: Nola Zuniga DO Consulting Physician: Radha SHIRLEY Referring Physician: Nola Zuniga DO Follow up: With: Address: When: CASSIE LORENZ [address] [place] [address] Business (1) With: Address: When: Nola Zuniga [address] [place] [address] Business (1) 05/05/2023 9:30 AM Comments: Keep sched (more content not included)... Normal [facility] Inpatient Patient Summaryon 04-14-2023 Inpatient Patient Summary [address] [address] Patient Discharge Instructions PERSON INFORMATION Name: ELIZABETH SÁNCHZE Date of : 1965 Current Date: 04/14/2023 [...] Follow up: With: Address: When: CASSIE LORENZ [address] [place] [address] Business (1) With: Address: When: Nola Zuniga [address] [place] [address] Business (1) 05/05/2023 9:30 AM Comments: Keep [...] DURING YOUR HOSPITAL STAY New Medications [id number], [address], [place] [id number], [phone] aspirin (aspirin 325 mg Tab) 1 Tablets [...] Medications to Continue with No Changes [id number], [address], [place] [id number], [phone] docusate (Colace 100 mg Cap) 1 Capsules [...] __Next Dose: __ potassium chloride (Potassium Chloride (Sbz-Zxvh-Rna 10) 10 mEq oral tablet, extended release) [...] 30 Days. (more content not included)... Normal [facility] IntraOperative Documentson 0 04-12-2023 IntraOperative Documents [id number] TIFF Normal [facility] Transfer Documentson 024 Transfer Documents [id number] TIFF Normal [facility] BUNon 04-08-2023 Urea nitrogen [Mass/Vol] 13 mg/dL Normal 5-21 [facility] Comment on above: Performed By: #### 2 175431, 6134387, 3026047, 83378013, 0076051 ####[facility] [address] [place] [address] CBC w/ Auto Diffon Basophil Absolute 0.0 E9/L Normal 0.0-0.2 [facility] Comment on above: Performed By: #### 2 296567, 3591764, 7482420, 82662901, 3635713 ####[facility] [address] [place] [address] Basophils/100 WBC (Bld) 0.1 % Normal 0.0-2.0 [facility] Comment on above: Performed By: #### 2 328797, 6183743, 6226923, 29855400, 3727311 ####[facility] [address] [place] [address] Eos Absolute 0.0 E9/L Normal 0.0-0.5 [facility] Comment on above: Performed By: #### 2 607179, 7092982, 2123543, 05550788, 0352602 ####[place] [address] [place] [address] Eosinophils/100 WBC (Bld) 0.0 % Normal 0.0-8.0 [facility] Comment on above: Performed By: #### 2 701835, 7421633, 7531959, 04817839, 7224664 ####[address] [address] Erythrocyte distribution width (RBC) [Ratio] 13.3 % Normal 10.9-14.2 [facility] Comment on above: Performed By: #### 2 695815, 9635324, 4518580, 42427443, 0101105 ####[address] [address] Hematocrit (Bld) [Volume fraction] 29.0 % Low 34.0-46.0 [facility] Comment on above: Performed By: #### 2 568791, 8346796, 3206828, 37193994, 6040468 ####[address] [address] Hemoglobin (Bld) [Mass/Vol] 9.5 g/dL Low 12.0-16.0 [facility] Comment on above: Performed By: #### 2 648359, 4559251, 6659978, 90088328, 2278094 ####[facility] [address] [place] [address] Lymph Absolute 1.0 E9/L Normal 1.0-4.0 [facility] Comment on above: Performed By: #### 2 977952, 7909454, 2883815, 00394540, 8965204 ####[facility] [address] [place] [address] Lymphocytes/100 WBC (Bld) 15.4 % Normal 14.0-50.0 [facility] Comment on above: Performed By: #### 2 795037, 1824027, 1221380, 57693437, 0159120 ####[place] [address] MCH (RBC) [Entitic mass] 30.6 pg Normal 27.0-34.0 [facility] Comment on above: Performed By: #### 2 903396, 5951893, 8833733, 96654950, 3636500 ####[place] [address] MCHC (RBC) [Mass/Vol] 33.2 g/dL Normal 31.4-36.0 [facility] Comment on above: Performed By: #### 2 134217, 0423212, 4798569, 66057874, 4043450 ####[place] [address] MCV (RBC) [Entitic vol] 92.3 fL Normal 80.0-100.0 [facility] Comment on above: Performed By: #### 2 764225, 6157065, 2765824, 46306373, 0982928 ####[place] [address] [place] Absolute 0.6 E9/L Normal 0.2-1.0 [facility] Comment on above: Performed By: #### 2 224130, 4303827, 2365105, 18607025, 4586050 ####[place] [address] Monocytes/100 WBC (Bld) 9.8 % Normal 4.0-14.0 [facility] Comment on above: Performed By: #### 2 328831, 4861281, 8359331, 83384701, 3015861 ####[address] [address] Neutro Absolute 4.6 E9/L Normal 2.0-7.5 [facility] Comment on above: Performed By: #### 2 969105, 4579729, 6328445, 51409933, 2695547 ####[facility] [address] [place] [address] Neutro Auto 74.7 % Normal 36.0-75.0 [facility] Comment on above: Performed By: #### 2 607693, 8890301, 8920828, 12917262, 7466368 ####[facility] [address] [place] [address] Platelet 165.0 E9/L Normal 150.0-500.0 [facility] Comment on above: Performed By: #### 2 026295, 3689898, 9258790, 64126372, 5394298 ####[facility] [address] [place] [address] Platelet mean volume (Bld) [Entitic vol] 8.4 fL Normal 6.4-10.8 [facility] Comment on above: Performed By: #### 2 264073, 2913281, 9490723, 33383197, 2080691 ####[facility] [address] [place] [address] RBC 3.1 E12/L Low 4.3-5.9 [facility] Comment on above: Performed By: #### 2 708446, 6314282, 2950506, 96658333, 9267559 ####[facility] [address] [place] [address] WBC 6.2 E9/L Normal 4.0-11.0 [facility] Comment on above: Performed By: #### 2 317845, 0095811, 0504071, 43128942, 8791405 ####[facility] [address] [place] [address] Creatinineon 04-08-2023 Creatinine [Mass/Vol] 0.7 mg/dL Normal 0.5-1.3 [facility] Comment on above: Performed By: #### 2 146946, 5743859, 6067915, 77221002, 9012149 ####[address] [address] Discharge Note-Nursingon Discharge Note-Nursing ELIZABETH SÁNCHEZ :1965 [...] 10 mg Tab) potassium chloride (Potassium Chloride (Ygd-Gsck-Fqt 10) 10 mEq oral tablet, extended release) [...] Pending Diagnostic Test Results None Pharmacy Information [facility] Discharge Instructions Meriplex dressing per Dr. Ojeda's orders. F /U w/ Dr. Zuniga. PT/OT - WBAT New Follow Up Appointments after Discharge Follow Up with Nola Zuniga When: 05/05/2023 09:30 AM EST Comments: Keep scheduled appointment *ARVIND OFFICE* Where: [address] [place] [address]- Business (1) Follow Up with CASSIE LORENZ When: In 0 days Where: [address] [place] [address]- Business (1) Medications What How Much When Why Instructions Next Dose New aspirin (aspirin 325 mg Tab) 1 Tablets By Mouth Every day Duration: 30 Days Daily for 4 weeks for blood clot prevention. Pickup at [facility]/pharmacy #[id number] 04/09 @ 9 AM Changed acetaminophen-oxycodone (Percocet [...] Mouth 2 times a day Pickup at [facility]/pharmacy #2011 04/08 @ 9 PM Unchanged famotidine (famotidine 20 mg Tab) 1 Tablets By Mouth 2 times a day 04/08 @ 9 PM Unchanged montelukast (montelukast 10 mg Tab) 1 Tablets By Mouth Every day 04/09 @ 9 AM Unchanged potassium chloride (Potassium Chloride (Oso-Absj-Dgu 10) 10 mEq oral tablet, extended release) 1 Tablets By Mouth Every day 04/09 @ 9 AM Unchanged sertraline (sertraline 25 mg Tab) 1 Tablets By Mouth Every day 04/09 @ 9 AM Pharmacy Information [facility]/pharmacy #[id number]: [address] [place], [place] [id number] [phone] What How Much When Comments Stop Taking [...] fL (04/08/23 05:2 (more content not included)... [facility] Interdisciplinary Note - Jordon e Manageron 04-08-2023 Interdisciplinary Note - Director Of Clinical Applications CRM to room to discuss DC planning. [...] CRM called Dottie Sánchez and updated him [facility] Comment on above: Result Comment: Elec tronically Signed By: Nidia Rodriguez\.br\Date and Time Signed: 04/08/23 13:36 EST Lyjarodon 04-08-2023 Anion gap [Moles/Vol] 10 mmol/L Normal 6-16 [facility] Comment on above: Performed By: #### 2 593351, 9578571, 5668784, 01491180, 5629557 ####[facility] [address] [place] [address] Chloride [Moles/Vol] 105 mmol/L Normal 101-111 [facility] Comment on above: Performed By: #### 2 430871, 6090102, 5917717, 04012351, 3354885 ####[facility] [address] [place] [address] CO2 [Moles/Vol] 27 mmol/L Normal 21-31 [facility] Comment on above: Performed By: #### 2 732541, 2487424, 8947289, 76894807, 7765762 ####[facility] [address] [place] [address] Potassium [Moles/Vol] 3.9 mmol/L Normal 3.5-5.3 [facility] Comment on above: Performed By: #### 2 540293, 2905440, 2843420, 60417272, 8452542 ####[facility] [address] [place] [address] Sodium [Moles/Vol] 138 mmol/L Normal 135-145 [facility] Comment on above: Performed By: #### 2 849239, 6109592, 2510076, 11201851, 8616528 ####[facility] [address] [place] [address] Progress Note-Physicianon Progress Note-Physician Assessment/Plan Request to [...] made to ensure accuracy, however, inadvertently computerized creping machine operator mistakes may be present. Subjective No acute [...] 05:29:00) Lymph Auto: 15.4 % (04/08/23 05:29:00) [place] Auto: 9.8 % (04/08/23 05:29:00) Eos Auto: 0 % (04/08/23 05:29:00) Basophil Auto: 0.1 % (04/08/23 05:29:00) Neutro Absolute: 4.6 E9/L (04/08/23 05:29:00) Lymph Absolute: 1 E9/L (04/08/23 05:29:00) [place] Absolute: 0.6 E9/L (04/08/23 05:29:00) Eos Absolute: [...] mg-5 mg (more content not included)... Normal [facility] Comment on above: Result Comment: Elec [...] seizure as a child / SNOMED CT 4879726641 / Confirmed Cognitive developmental delay / SNOMED CT 5717024754 / Confirmed Physical Examination Gastrointestinal: Soft, Non-tender. [...] with d/c to [facility] today.. Normal [facility] Comment on above: Result Comment: Elec tronically Signed By: Nola Zuniga DO\.br\Date and Time Signed: 04/08/23 07:30 EST eGFRon 04-08-2023 eGFR 99 mL/min/1.73 m2 Normal >=59 [facility] Comment on above: Order Comment: Order added by Discern Expert. Performed By: #### 2 530917, 8225512, 0601121, 01879717, 2662303 ####[facility] [address] [place] [address] Auto Diffon 04-07-2023 Basophils/100 WBC (Bld) 0.1 % Normal 0.0-2.0 [facility] Comment on above: Order Comment: Order Added by Discern Expert. Performed By: #### 2 639140, 2207304, 9605895, 7363143, 2959258, 37157766 ####[facility] [address] [place] [address] Basophils/Leukocytes Auto (Bld) [Pure # fraction] 0.0 E9/L Normal 0.0-0.2 [facility] Comment on above: Order Comment: Order Added by Discern Expert. Performed By: #### 2 287352, 0530514, 2812296, 0122940, 3104450, 67043584 ####[facility] [address] [place] [address] Eosinophils/100 WBC (Bld) 0.0 % Normal 0.0-8.0 [facility] Comment on above: Order Comment: Order Added by Discern Expert. Performed By: #### 2 896570, 9890707, 4877504, 6040847, 3707128, 76979428 ####[place] [address] [place] [address] Eosinophils/Leukocyt es Auto (Bld) [Pure # fraction] 0.0 E9/L Normal 0.0-0.5 [facility] Comment on above: Order Comment: Order Added by Cynthia Expert. Performed By: #### 2 395909, 0026872, 7542284, 7178551, 8105621, 48607685 ####[address] [address] Lymphocytes/100 WBC (Bld) 19.1 % Normal 14.0-50.0 [facility] Comment on above: Order Comment: Order Added by Cynthia Expert. Performed By: #### 2 525402, 2156330, 3960572, 8376162, 0200643, 42974262 ####[address] [address] Lymphocytes/Leukocyt es Auto (Bld) [Pure # fraction] 1.3 E9/L Normal 1.0-4.0 [facility] Comment on above: Order Comment: Order Added by Cynthia Expert. Performed By: #### 2 826314, 9921120, 2561339, 8683467, 9015467, 94420691 ####[place] [address] [place] [address] Monocytes/100 WBC (Bld) 12.6 % Normal 4.0-14.0 [facility] Comment on above: Order Comment: Order Added by Discern Expert. Performed By: #### 2 586868, 5982513, 5283543, 3172578, 1673579, 58193080 ####[place] [address] [place] [address] Monocytes/Leukocytes Auto (Bld) [Pure # fraction] 0.8 E9/L Normal 0.2-1.0 [facility] Comment on above: Order Comment: Order Added by Discern Expert. Performed By: #### 2 842639, 5952146, 0034353, 9931729, 1949570, 87823766 ####[place] [address] [place] [address] Neutrophils/100 WBC (Bld) 68.2 % Normal 36.0-75.0 [facility] Comment on above: Order Comment: Order Added by Cynthia Expert. Performed By: #### 2 528524, 3967018, 4759477, 7360297, 4626528, 77662974 ####[address] [address] Neutrophils/Leukocyt es Auto (Bld) [Pure # fraction] 4.6 E9/L Normal 2.0-7.5 [facility] Comment on above: Order Comment: Order Added by Discern Expert. Performed By: #### 2 785221, 9992916, 3163963, 9929205, 1142495, 34747206 ####[place] [address] [place] [address] BUNon 04-07-2023 Urea nitrogen [Mass/Vol] 12 mg/dL Normal 5-21 [facility] Comment on above: Performed By: #### 2 245272, 6960938, 5406991, 1547857, 0066358, 65943091 ####[place] [address] [place] [address] CBC w/ Auto Diffon Erythrocyte distribution width (RBC) [Ratio] 13.6 % Normal 10.9-14.2 [facility] Comment on above: Performed By: #### 2 604547, 4975856, 1617423, 3752395, 9108371, 67771748 ####[place] [address] [place] [address] Hematocrit (Bld) [Volume fraction] 28.7 % Low 34.0-46.0 [facility] Comment on above: Performed By: #### 2 246369, 1753128, 6011756, 8792527, 9727998, 72354867 ####[address] [address] Hemoglobin (Bld) [Mass/Vol] 9.7 g/dL Low 12.0-16.0 [facility] Comment on above: Performed By: #### 2 614021, 8523197, 1094315, 3905495, 4280380, 34496270 ####[address] [address] MCH (RBC) [Entitic mass] 30.8 pg Normal 27.0-34.0 [facility] Comment on above: Performed By: #### 2 065535, 7359066, 5196521, 9767889, 2095895, 25396209 ####[address] [address] MCHC (RBC) [Mass/Vol] 33.7 g/dL Normal 31.4-36.0 [facility] Comment on above: Performed By: #### 2 703319, 6929526, 6869047, 7106867, 4168451, 89341477 ####[place] [address] [place] [address] MCV (RBC) [Entitic vol] 91.4 fL Normal 80.0-100.0 [facility] Comment on above: Performed By: #### 2 733116, 6078743, 5792478, 5649990, 8251493, 15625048 ####[place] [address] [place] [address] Platelet mean volume (Bld) [Entitic vol] 8.5 fL Normal 6.4-10.8 [facility] Comment on above: Performed By: #### 2 520821, 2565041, 5504198, 3064775, 6394759, 61942063 ####[facility] [address] [place] [address] Platelets (Bld) [#/Vol] 164.0 E9/L Normal 150.0-500.0 [facility] Comment on above: Performed By: #### 2 634344, 3048076, 2926256, 6605618, [id number], [id number] ####[facility] [address] [place] [address] RBC (Bld) [#/Vol] 3.1 E12/L Low 4.3-5.9 [facility] Comment on above: Performed By: #### 2 634221, 2551495, 3075882, 4123032, 1747175, 39843928 ####[facility] [address] [place] [address] WBC corrected for nucl RBC Auto (Bld) [#/Vol] 6.7 E9/L Normal 4.0-11.0 [facility] Comment on above: Performed By: #### 2 915601, 7300685, 6815597, 4972618, 2987989, 36791169 ####[facility] [address] [place] [address] Creatinineon 04-07-2023 Creatinine [Mass/Vol] 0.6 mg/dL Normal 0.5-1.3 [facility] Comment on above: Performed By: #### 2 499438, 4054791, 4437522, 5925383, 5657830, 63891913 ####[facility] [address] [place] [address] Interdisciplinary Note - Jordon e Manageron 04-07-2023 Interdisciplinary Note - Director Of Clinical Applications CRM to room to discuss DC planning. [...] updated, CRM contact provided. CRM following. Normal [facility] Comment on above: Result Comment: Elec tronically Signed By: Nidia Rodriguez\.br\Date and Time Signed: 04/07/23 09:47 EST Joel 04-07-2023 Anion gap [Moles/Vol] 8 mmol/L Normal 6-16 [facility] Comment on above: Performed By: #### 2 225057, 4858806, 1104273, 0485318, 5517001, 37799066 ####[facility] [address] [place] [address] Chloride [Moles/Vol] 105 mmol/L Normal 101-111 [facility] Comment on above: Performed By: #### 2 813574, 3046937, 7235497, 0963336, 9378647, 00615487 ####[facility] [address] [place] [address] CO2 [Moles/Vol] 30 mmol/L Normal 21-31 [facility] Comment on above: Performed By: #### 2 106060, 7492799, 1251227, 6469783, 0012387, 73877584 ####[facility] [address] [place] [address] Potassium [Moles/Vol] 4.2 mmol/L Normal 3.5-5.3 [facility] Comment on above: Performed By: #### 2 422005, 7640251, 8122775, 8232348, 4526273, 08097678 ####[facility] [address] [place] [address] Sodium [Moles/Vol] 139 mmol/L Normal 135-145 [facility] Comment on above: Performed By: #### 2 949435, 0982225, 8042474, 9500027, 2018336, 73470060 ####[facility] [address] [place] [address] Progress Note-Physicianon Progress Note-Physician Assessment/Plan PLAN: 1. [...] 04:46:00) Lymph Auto: 19.1 % (04/07/23 04:46:00) [place] Auto: 12.6 % (04/07/23 04:46:00) Eos Auto: 0 % (04/07/23 04:46:00) Basophil Auto: 0.1 % (04/07/23 04:46:00) Neutro Absolute: 4.6 E9/L (04/07/23 04:46:00) Lymph Absolute: 1.3 E9/L (04/07/23 04:46:00) [place] Absolute: 0.8 E9/L (04/07/23 04:46:00) Eos Absolute: [...] 20 mg (more content not included)... Normal [facility] Comment on above: Result Comment: Elec tronically Signed By: Radha SHIRLEY\.br\Date and Time Signed: 04/07/23 09:44 EST\.br\Electronically Co-Signed By: Lincoln Hammond DO\.br\Date and Time Co-Signed: 04/07/23 12:35 EST eGFRon 04-07-2023 eGFR 103 mL/min/1.73 m2 Normal >=59 [facility] Comment on above: Order Comment: Order added by Discern Expert. Performed By: #### 2 938306, 7969684, 9808349, 4697569, 5492674, 07296686 ####[facility] [address] [place] [address] Auto Diffon 04-06-2023 Basophils/100 WBC (Bld) 0.1 % Normal 0.0-2.0 [facility] Comment on above: Order Comment: Order Added by Discern Expert. Performed By: #### 2 403568, 7174665, 3111362, 9287576, 2936052, 53563462 ####[facility] [address] [place] [address] Basophils/Leukocytes Auto (Bld) [Pure # fraction] 0.0 E9/L Normal 0.0-0.2 [facility] Comment on above: Order Comment: Order Added by Cynthia Expert. Performed By: #### 2 942929, 9077658, 2868910, 8070850, 7495088, 41257509 ####[facility] [address] [place] [address] Eosinophils/100 WBC (Bld) 0.0 % Normal 0.0-8.0 [facility] Comment on above: Order Comment: Order Added by Discern Expert. Performed By: #### 2 422833, 4287668, 4046442, 6892687, 7103365, 53980425 ####[address] [place] [address] Eosinophils/Leukocyt es Auto (Bld) [Pure # fraction] 0.0 E9/L Normal 0.0-0.5 [facility] Comment on above: Order Comment: Order Added by Discern Expert. Performed By: #### 2 326754, 7412091, 8567317, 8842523, 1193435, 49309423 ####[address] [address] Lymphocytes/100 WBC (Bld) 17.4 % Normal 14.0-50.0 [facility] Comment on above: Order Comment: Order Added by Cynthia Expert. Performed By: #### 2 388339, 6393151, 1122718, 7151006, 3072415, 08235392 ####[address] [address] Lymphocytes/Leukocyt es Auto (Bld) [Pure # fraction] 1.6 E9/L Normal 1.0-4.0 [facility] Comment on above: Order Comment: Order Added by Cynthia Expert. Performed By: #### 2 373788, 6986361, 2040488, 6732832, 6788023, 40119898 ####[address] [address] Monocytes/100 WBC (Bld) 10.1 % Normal 4.0-14.0 [facility] Comment on above: Order Comment: Order Added by Cynthia Expert. Performed By: #### 2 575854, 7021942, 5767896, 6210079, 0447971, 24075739 ####[address] [place] [address] Monocytes/Leukocytes Auto (Bld) [Pure # fraction] 0.9 E9/L Normal 0.2-1.0 [facility] Comment on above: Order Comment: Order Added by Cynthia Expert. Performed By: #### 2 928965, 6805451, 5503321, 3609649, 6789781, 48139520 ####[address] [place] [address] Neutrophils/100 WBC (Bld) 72.4 % Normal 36.0-75.0 [facility] Comment on above: Order Comment: Order Added by Discern Expert. Performed By: #### 2 549922, 7281304, 8804902, 0767068, 3173647, 23123620 ####[address] [place] [address] Neutrophils/Leukocyt es Auto (Bld) [Pure # fraction] 6.6 E9/L Normal 2.0-7.5 [facility] Comment on above: Order Comment: Order Added by Discern Expert. Performed By: #### 2 662268, 7299044, 9663581, 7796109, 8350278, 88461579 ####[address] [address] BUNon 04-06-2023 Urea nitrogen [Mass/Vol] 16 mg/dL Normal 5-21 [facility] Comment on above: Performed By: #### 2 498438, 2801782, 9316709, 1142598, 6161577, 66068996 ####[address] [address] CBC w/ Auto Diffon Erythrocyte distribution width (RBC) [Ratio] 13.2 % Normal 10.9-14.2 [facility] Comment on above: Performed By: #### 2 246633, 4265864, 2099608, 0184190, 6228773, 06642348 ####[address] [place] [address] Hematocrit (Bld) [Volume fraction] 31.4 % Low 34.0-46.0 [facility] Comment on above: Performed By: #### 2 087892, 0299898, 8707200, 1908497, 7555425, 21673086 ####[address] [place] [address] Hemoglobin (Bld) [Mass/Vol] 10.5 g/dL Low 12.0-16.0 [facility] Comment on above: Performed By: #### 2 880300, 7975514, 0208251, 5500318, 1924376, 81491325 ####[address] [address] MCH (RBC) [Entitic mass] 30.4 pg Normal 27.0-34.0 [facility] Comment on above: Performed By: #### 2 349106, 7759825, 6560675, 7653679, 7057248, 55418404 ####[address] [address] MCHC (RBC) [Mass/Vol] 33.6 g/dL Normal 31.4-36.0 [facility] Comment on above: Performed By: #### 2 741731, 2099022, 6578207, 1938734, 5892215, 67410813 ####[address] [address] MCV (RBC) [Entitic vol] 90.4 fL Normal 80.0-100.0 [facility] Comment on above: Performed By: #### 2 350641, 7862362, 4955263, 9794030, 1632639, 48857850 ####[address] [address] Platelet mean volume (Bld) [Entitic vol] 8.2 fL Normal 6.4-10.8 [facility] Comment on above: Performed By: #### 2 228614, 3401029, 5179840, 8411829, 8864712, 50791901 ####[address] [address] Platelets (Bld) [#/Vol] 197.0 E9/L Normal 150.0-500.0 [facility] Comment on above: Performed By: #### 2 660488, 4598716, 3098603, 7088481, 0555050, 64185349 ####[facility] [address] [place] [address] RBC (Bld) [#/Vol] 3.5 E12/L Low 4.3-5.9 [facility] Comment on above: Performed By: #### 2 556870, 5672217, 9659464, 6410990, 7406154, 12087493 ####[facility] [address] [place] [address] WBC corrected for nucl RBC Auto (Bld) [#/Vol] 9.2 E9/L Normal 4.0-11.0 [facility] Comment on above: Performed By: #### 2 769603, 3268003, 4749999, 8195467, 7614897, 27986197 ####[facility] [address] [place] [address] Consent for Anesthesiaon Consent for Anesthesia [id number]#1.00 TIFF Normal [facility] Creatinineon 04-06-2023 Creatinine [Mass/Vol] 0.8 mg/dL Normal 0.5-1.3 [facility] Comment on above: Performed By: #### 2 441428, 5670628, 9695030, 7975069, 4556059, 25034241 ####[facility] [address] [place] [address] Interdisciplinary Note - Jordon e Manageron 04-06-2023 Interdisciplinary Note - Director Of Clinical Applications CRM to room to discuss DC planning. Patient is awake, alert and mostly oriented. Patient verified PCP with help, insurance and DME on admit. Patient is inpatient, medicare form completed on admit. Patient is from home alone. Will need transport to SNF. Patient had right TKA. Patient is assigned to Dr Zuniga, see notes. She also has hospitalist Shelby [employer] LIBRARY CLERK on case, see notes. Patient will need SNF placement. Patient will work with PT/OT. She will need a 3M stay and can DC to SNF 04/08/23. SNF choice is [facility] and they have accepted. Patient white board updated, CRM contact provided. CRM following. SARAH is going to do an onsite visit with patient Normal [facility] Comment on above: Result Comment: Elec [...] safety and to maximize Pt's independence. Normal [facility] IntraOperative Documentson 0 04-06-2023 IntraOperative Documents [id number] TIFF Normal [facility] Lyteson 04-06-2023 Anion gap [Moles/Vol] 10 mmol/L Normal - [facility] Comment on above: Performed By: #### 2 325645, 6814970, 5605783, 5439571, 4913518, 93279089 ####[facility] [address] [place] [address] Chloride [Moles/Vol] 105 mmol/L Normal 101-111 [facility] Comment on above: Performed By: #### 2 854394, 5874507, 5699052, 1096374, 7664327, 91679901 ####[facility] [address] [place] [address] CO2 [Moles/Vol] 29 mmol/L Normal 21-31 [facility] Comment on above: Performed By: #### 2 793402, 9038358, 7158657, 5217246, 0089248, 12473419 ####[facility] [address] [place] [address] Potassium [Moles/Vol] 3.8 mmol/L Normal 3.5-5.3 [facility] Comment on above: Performed By: #### 2 014397, 7460705, 7788366, 2546408, 8234645, 97646501 ####[facility] [address] [place] [address] Sodium [Moles/Vol] 140 mmol/L Normal 135-145 [facility] Comment on above: Performed By: #### 2 748637, 4012425, 6690816, 2275433, 7204429, 27574795 ####[facility] [address] [place] [address] Message from Medicareon 03-22 Message from Medicare [id number]#1.00T IFF Normal [facility] Preoperative Documentson Preoperative Documents [id number]#1.00 TIFF Normal [facility] Progress Note-Physicianon Progress Note-Physician Assessment/Plan PLAN: [...] 04:49:00) Lymph Auto: 17.4 % (04/06/23 04:49:00) [place] Auto: 10.1 % (04/06/23 04:49:00) Eos Auto: 0 % (04/06/23 04:49:00) Basophil Auto: 0.1 % (04/06/23 04:49:00) Neutro Absolute: 6.6 E9/L (04/06/23 04:49:00) Lymph Absolute: 1.6 E9/L (04/06/23 04:49:00) [place] Absolute: 0.9 E9/L (04/06/23 04:49:00) Eos Absolute: [...] IV Push, q2hr, PRN Lactated Ringers IV Nanyc 1000 mL 1,000 mL, 1000 mL, IV loratadine 10 mg Tab, 10 mg= 1 tab(s), Ora (more content not included)... Normal [facility] Comment on above: Result Comment: Elec [...] seizure as a child / SNOMED CT 8083804508 / Confirmed Cognitive developmental delay / SNOMED CT 1614871149 / Confirmed Physical Examination Gastrointestinal: Soft, Non-tender. [...] weeks for DVTp.. Velasquez is out.. Normal [facility] Comment on above: Result Comment: Elec tronically Signed By: Nola Zuniga DO\.br\Date and Time Signed: 04/06/23 07:14 EST eGFRon 04-06-2023 eGFR 84 mL/min/1.73 m2 Normal >=59 [facility] Comment on above: Order Comment: Order added by Discern Expert. Performed By: #### 2 250190, 3282238, 7325194, 8871355, 8491539, 89561384 ####[facility] [address] [place] [address] ABO/Rhon 04-05-2023 ABO/Rh Positive Invalid Interpretation Code [facility] Comment on above: Performed By: #### 2 702083, 96685215, 04092680, 63921099 ####[facility] [address] [place] [address] ABO/Rh History Checkon 04-05 ABO/Rh History Check Verified Hx Blood Type Normal [facility] Comment on above: Performed By: #### 2 448654, 74606595, 40085406, 29405012 ####[facility] [address] [place] [address] ABSCon 04-05-2023 ABSC Gel Interp Negative Normal [facility] Comment on above: Performed By: #### 2 088157, 80309881, 14550013, 38797473 ####[facility] [address] [place] [address] Blood Bank ID#on 04-05-2023 BBID# [id number] Invalid Interpretation Code [facility] Comment on above: Performed By: #### 2 712819, 48443338, 07873602, 34731802 ####[facility] [address] [place] [address] Consent for Treatmenton 03-22 Consent for Treatment [id number]#1.00T IFF Normal [facility] H&P Updateon 04-05-2023 H&P Update [id number]#1.00TI FF Normal [facility] Interdisciplinary Note - Jordon e Manageron 04-05-2023 Interdisciplinary Note - Director Of Clinical Applications CRM to room to discuss DC planning. [...] she will need transport at DC Normal [facility] Comment on above: Result Comment: Elec tronically Signed By: Nidia Rodriguez\.br\Date and Time Signed: 04/05/23 15:13 EST Main OR Intraoperative Recor don 04-05-2023 Main OR Intraoperative Record IntraOp Document Type FT Summary Primary Physician: Nola Zuniga DO Finalized Date/Time: 04/06/23 14:13:18 Pt. Name: ELIZABETH SÁNCHEZ/Sex: 1965 Female Med Rec #: [id number] Physician: Nola Zuniga DO Financial #: [id number] Pt. Type: I Room/Bed: N317/01 Admit/Disch: 04/05/23 [...] T Wilhelm CST, Macie C Role Performed TANNING SOLUTION MAKER Surgeon - Primary DEPOT AGENT/SA Time In 04/05/23 09:32:00 04/05/23 09:32:00 04/05/23 09:32:00 Time Out 04/05/23 11:03:00 04/05/23 11:03:00 04/05/23 11:03:00 Procedure KNEE TOTAL KNEE TOTAL KNEE TOTAL ARTHROPLASTY(Right) ARTHROPLASTY(Right) ARTHROPLASTY(Right) Comments IS SUPERVISING Last Modified By: Amalia Shabazz Kelsie E Burgderfer, Kelsie E 04/05/23 11:07:30 04/05/23 11:07:30 04/05/23 11:07:30 Entry 4 Entry 5 Entry 6 Case Attendee Amalia Shabazz Adam A Dent CST, Beau Role Performed Carton Forming Machine Operator - Primary Scrub - Primary Staff - Other Time In 04/05/23 09:32:00 04/05/23 09:32:00 01/15/24 09:32:00 Time Out 04/05/23 11:03:00 04/05/23 11:03:00 04/05/23 11:03:00 Procedure KNEE TOTAL KNEE TOTAL KNEE TOTAL ARTHROPLASTY(Right) ARTHROPLASTY(Right) ARTHROPLASTY(Right) Comments 2ND SCRUB Last Modified By: Amalia Shabazz Kelsie E Burgderfer, Kelsie E 04/05/23 11:07:30 04/05/23 11:07:30 04/05/23 11:07:30 Entry 7 Case Attendee Buzz Hickey Role Performed EMBROIDERER Time In 04/05/23 09:32:00 Time Out 04/05/23 [...] CRNA, Given Participants Briana KEVIN, Harish Delvalle DEPOT AGENT, Bernadine Hui, Amalia Shabazz, Tez Lau Dent DEPOT AGENT, Edelmira Chester Alejandro Time Out Complete 04/05/23 [...] protective measure (more content not included)... Normal [facility] Main OR PACU I Recordon 03-22 Main OR PACU I Record PACU Phase I Document Type FT Summary Primary Physician: Nola Zuniga DO Finalized Date/Time: 04/05/23 12:20:40 Pt. Name: ELIZABETH SÁNCHEZ/Sex: 1965 Female Med Rec #: [id number] Physician: Nola Zuniga DO Financial #: [id number] Pt. Type: I Room/Bed: [place] [address] Admit/Disch: 04/05/23 06:49:48 - Institution: Case Times [...] By: Zoraida Ferrer RN 04/05/23 12:20 Normal [facility] Main OR Preoperative Recordo n 04-05-2023 Main OR Preoperative Record PreOp Document Type FT Summary Primary Physician: Nola Zuniga DO Finalized Date/Time: 04/05/23 10:11:23 Pt. Name: ELIZABETH SÁNCHEZ/Sex: 1965 Female Med Rec #: [id number] Physician: Nola Zuniga DO Financial #: [id number] Pt. Type: A Room/Bed: [facility]/ Admit/Disch: 04/05/23 06:49:48 - Institution: Case [...] Signed By: Amalia Shabazz 04/05/23 10:11 Normal [facility] Monitor Recordon 04-05-2023 Monitor Record [id number]#1.00 TIFF Normal [facility] Monitor Record [id number]#1.00 TIFF Normal [facility] Operative Reporton Operative Report SURGERY DATE: [...] procedure. Bryan Babb CRNA lr Dictated: 04/05/2023 [id number] Transcribed: 04/05/2023 [facility] Comment on above: Result Comment: Elec tronically Signed By: Bryan Babb CRNA\.br\Date and Time Signed: 04/05/23 15:26 EST Operative Report SURGERY DATE: 04/05/2023 CONTRACTS ADMINISTRATOR: Bernadine Moreira CST PREOPERATIVE DIAGNOSIS: Right knee end-stage osteoarthritis with failure of conservative injection care POSTOPERATIVE DIAGNOSIS: Right knee end-stage osteoarthritis with failure of conservative injection care OPERATION: Right total knee arthroplasty ANESTHESIA: Spinal with block with sedation ESTIMATED BLOOD LOSS: Zero SPECIMEN: Bone IMPLANTS: The Dealflicksune Knee System with a 7 right PS femur, a 6 cemented tibial tray, a 6 mm polyethylene, 35 mm patellar button TOURNIQUET TIME: See nurse's record HISTORY AND INDICATIONS: Elizabeth is a 57-year-old female with progressive bilateral knee osteoarthritis that is xtth-rg-kaid, grade 4 severe in nature. She has [...] protocol. Once the bone was prepared, the Nebo Simplex cement was mixed. All components were [...] patient's condition satisfactory Chad Bright Dictated: 04/05/2023 [id number] Transcribed: 04/05/2023 cc:Cassie Lorenz M.D. [facility] Comment on above: Result Comment: [...] Room in stable and satisfactory condition.. 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 It is therefore advised not to drive until after your first office visit following surgery FOLLOW-UP OFFICE VISIT: Nola Zuniga, DO [facility] [address] [place] [address] Reviewed: 06-27 [facility] Progress Note-Physicianon Progress Note-Physician Patient: [...] BID, # 20 cap(s), Refills(s) 0, Pharmacy: [facility]/pharmacy #[id number], 177, cm, 03/17/23 13:00:00 EST, Height/Length Dosing, 102, kg, 03/17/23 13:00:00 EST, Weight Dosing Percocet 5 mg-325 mg oral tablet: See Instructions, 50 tab(s), Refill(s) 0, Take one to two oral every 4 hours as needed for knee surgical pain., [facility]/pharmacy #[id number], 177, cm, 03/17/23 13:00:00 EST, Height/Length Dosing, 102, kg, 03/17/23 13:00:00 EST, W (more content not included)... [facility] Comment on above: Result Comment: [...] BID, # 20 cap(s), Refills(s) 0, Pharmacy: [facility]/pharmacy #[id number], 177, cm, 03/17/23 13:00:00 EST, Height/Length Dosing, 102, kg, 03/17/23 13:00:00 EST, Weight Dosing Percocet 5 mg-325 mg oral tablet: See Instructions, 50 tab(s), Refill(s) 0, Take one to two oral every 4 hours as needed for knee surgical pain., [facility]/pharmacy #[id number], 177, cm, 03/17/23 13:00:00 EST, [...] Chloride ( (more content not included)... Normal [facility] Comment on above: Result Comment: Elec tronically Signed By: Yang Acevedo DO\.br\Date and Time Signed: 04/05/23 08:19 EST UA With Cult Reflexon 2023 Bilirubin Ql (U) Negative Normal Negative [facility] Comment on above: Performed By: #### 1 [id number] ####[facility] [address] [place] [address] Clarity (U) CLEAR Normal Clear [facility] Comment on above: Performed By: #### 1 5440278 ####[facility] [address] [place] [address] Color (U) YELLOW Normal Yellow [facility] Comment on above: Performed By: #### 1 3236209 ####[facility] [address] [place] [address] Epithelial cells.squamous LM.HPF (Urine sed) [#/Area] 0-2 Normal 0-2 [facility] Comment on above: Performed By: #### 1 7353476 ####[facility] [address] [place] [address] Glucose Test strip (U) [Mass/Vol] Negative Normal Negative [facility] Comment on above: Performed By: #### 1 1012765 ####[address] [place] [address] Hemoglobin Ql (U) Negative Normal Negative [facility] Comment on above: Performed By: #### 1 9915410 ####[address] [place] [address] Ketones (U) [Mass/Vol] Negative Normal Negative [facility] Comment on above: Performed By: #### 1 3791672 ####[address] [address] [place].plasma/Lithi um.RBC (Bld) [Mass ratio] 0-3 Normal 0-3 [facility] Comment on above: Performed By: #### 1 3291135 ####[address] [facility] [place] [address] Nitrite Ql (U) Negative Normal Negative [facility] Comment on above: Performed By: #### 1 5184661 ####[address] [address] pH (U) 7.0 [pH] Invalid Interpretation Code 5.0-9.0 [facility] Comment on above: Performed By: #### 1 2508230 ####[address] [place] [address] Protein (U) [Mass/Vol] Negative Normal Negative [facility] Comment on above: Performed By: #### 1 8073220 ####[address] [place] [address] Specific gravity (U) [Rel density] 1.020 Invalid Interpretation Code 1.005-1.030 [facility] Comment on above: Performed By: #### 1 1637186 ####[place] [address] [address] Type of Urine collection method Velasquez Normal [facility] Comment on above: Performed By: #### 1 1912109 ####[address] [place] [address] Urobilinogen Qn (U) 0.2 {Amina'U}/dL Normal 0.0-1.0 [facility] Comment on above: Performed By: #### 1 5534298 ####[facility] [address] [place] [address] WBC Auto Ql (U) Negative Normal Negative [facility] Comment on above: Performed By: #### 1 5738327 ####[address] [address] WBC LM.HPF (Urine sed) [#/Area] 0-5 Normal 0-5 [facility] Comment on above: Performed By: #### 1 6646483 ####[address] [address] [address] XR Knee 1 or 2 Views Righton [...] mGy = na DAP = na Normal [facility] Outpatient Surgery Discharge Instructionon 04-01-2023 Outpatient Surgery Discharge Instruction [address] [address] Patient Discharge Instructions PERSON INFORMATION Name: ELIZABETH [...] up: With: Address: When: Nola Zuniga [address] [place] [address] Business (1) Comments: Keep scheduled appointment Type Location Start [facility] Surgery [facility] 04/05/2023 10:00 AM 04/05/2023 11:00 [...] to serve you. Thank you for choosing [facility] HERE ARE THE MEDICATION CHANGES THAT [...] Mouth every day. potassium chloride (Potassium Chloride (Cwg-Uleb-Ipt 10) 10 mEq oral tablet, extended release) 1 Tablets By Mouth every day. primidone (primidone 50 mg Tab) 1 Tablets By Mouth once a day (at bedtime). sertraline (sertraline 25 mg Tab) 1 Tablets By Mouth every day. PATIENT EDUCATION INFORMATION Instructions: [place], [place] [facility] DISCHARGE INSTRUCTIONS TOTAL KNEE [...] until y (more content not included)... Normal [facility] Consent for Procedure/Surger yon 03-31-2023 Consent for Procedure/Surgery [id number]#[id number] TIFF Normal [facility] C Urineon 03-19-2023 Bacteria identified Cx [...] Locations R1: This test was performed at: [facility], [address] [place] [address], [address] , , Normal [facility] Comment on above: Performed By: #### 1 [id number], [id number] ####[facility] [address] [place] [address] ABO/Rh Retypeon 03-17-2023 ABO/Rh Retype Interp Positive Invalid Interpretation Code [facility] Comment on above: Performed By: #### 1 [id number] ####[facility] [address] [place] [address] Auto Diffon 03-17-2023 Basophils/100 WBC (Bld) 0.1 % Normal 0.0-2.0 [facility] Comment on above: Order Comment: Order Added by Discern Expert. Performed By: #### 2 809583, 7820621, 4403054, [id number] ####[address] [address] Basophils/Leukocytes Auto (Bld) [Pure # fraction] 0.0 E9/L Normal 0.0-0.2 [facility] Comment on above: Order Comment: Order Added by Discern Expert. Performed By: #### 2 539909, 5642422, 4131237, [id number] ####[address] [address] Eosinophils/100 WBC (Bld) 0.0 % Normal 0.0-8.0 [facility] Comment on above: Order Comment: Order Added by Discern Expert. Performed By: #### 2 872343, 8751224, 8240885, 23000584 ####[address] [address] Eosinophils/Leukocyt es Auto (Bld) [Pure # fraction] 0.0 E9/L Normal 0.0-0.5 [facility] Comment on above: Order Comment: Order Added by Discern Expert. Performed By: #### 2 254293, 7058890, 2536279, 46311779 ####[address] [address] Lymphocytes/100 WBC (Bld) 29.6 % Normal 14.0-50.0 [facility] Comment on above: Order Comment: Order Added by Discern Expert. Performed By: #### 2 865056, 8705659, 8384317, 19676768 ####[address] [address] Lymphocytes/Leukocyt es Auto (Bld) [Pure # fraction] 1.4 E9/L Normal 1.0-4.0 [facility] Comment on above: Order Comment: Order Added by Discern Expert. Performed By: #### 2 879573, 5061419, 1291815, 68830427 ####[facility] [address] [place] [address] Monocytes/100 WBC (Bld) 10.4 % Normal 4.0-14.0 [facility] Comment on above: Order Comment: Order Added by Discern Expert. Performed By: #### 2 833288, 9515111, 8625820, 12117289 ####[address] [address] Monocytes/Leukocytes Auto (Bld) [Pure # fraction] 0.5 E9/L Normal 0.2-1.0 [facility] Comment on above: Order Comment: Order Added by Discern Expert. Performed By: #### 2 476395, 7981595, 2470551, 59744212 ####[address] [address] Neutrophils/100 WBC (Bld) 59.9 % Normal 36.0-75.0 [facility] Comment on above: Order Comment: Order Added by Discern Expert. Performed By: #### 2 952235, 0812434, 9094884, 37336017 ####[address] [place] [address] Neutrophils/Leukocyt es Auto (Bld) [Pure # fraction] 2.9 E9/L Normal 2.0-7.5 [facility] Comment on above: Order Comment: Order Added by Discern Expert. Performed By: #### 2 276762, 0773266, 8390108, 45640594 ####[address] [place] [address] BLOOD BANKOrdered By: Mckenzie Bosch on 03-17-2023 ABO/Rh Retype Interp Positive Invalid Interpretation Code [facility] BB Subsection BMPon 03-17-2023 Anion gap [Moles/Vol] 10 mmol/L Normal 6-16 [facility] Comment on above: Performed By: #### 2 702601, 0678410, 5490132, 55455797 ####[facility] [address] [place] [address] BUN/Creat Ratio 31 No Units High 10-20 [facility] Comment on above: Performed By: #### 2 900464, 5848310, 6504127, 32125345 ####[facility] [address] [place] [address] Calcium [Mass/Vol] 9.2 mg/dL Normal 8.9-11.1 [facility] Comment on above: Performed By: #### 2 309706, 4783949, 3734253, 95288670 ####[facility] [address] [place] [address] Chloride [Moles/Vol] 106 mmol/L Normal 101-111 [facility] Comment on above: Performed By: #### 2 804001, 9254501, 4634477, 85199319 ####[facility] [address] [place] [address] CO2 [Moles/Vol] 29 mmol/L Normal 21-31 [facility] Comment on above: Performed By: #### 2 108538, 8729907, 9625636, 18113279 ####[facility] [address] [place] [address] Creatinine [Mass/Vol] 0.8 mg/dL Normal 0.5-1.3 [facility] Comment on above: Performed By: #### 2 245258, 5724057, 0803804, 22006496 ####[facility] [address] [place] [address] Glucose [Mass/Vol] 75 mg/dL Normal 55-199 [facility] Comment on above: Performed By: #### 2 781797, 0518694, 6457832, 94656633 ####[facility] [address] [place] [address] Potassium [Moles/Vol] 3.9 mmol/L Normal 3.5-5.3 [facility] Comment on above: Performed By: #### 2 151647, 7704594, 5202994, 57404678 ####[facility] [address] [place] [address] Sodium [Moles/Vol] 141 mmol/L Normal 135-145 [facility] Comment on above: Performed By: #### 2 741490, 4208909, 1796884, 83886242 ####[address] [place] [address] Urea nitrogen [Mass/Vol] 25 mg/dL High 5-21 [facility] Comment on above: Performed By: #### 2 998142, 4658181, 3683492, 32044299 ####[address] [address] CBC w/ Auto Diffon Erythrocyte distribution width (RBC) [Ratio] 13.4 % Normal 10.9-14.2 [facility] Comment on above: Performed By: #### 2 039829, 3885781, 1673322, 53482926 ####[address] [place] [address] Hematocrit (Bld) [Volume fraction] 39.0 % Normal 34.0-46.0 [facility] Comment on above: Performed By: #### 2 322050, 3829305, 9150132, 35392893 ####[address] [place] [address] Hemoglobin (Bld) [Mass/Vol] 13.6 g/dL Normal 12.0-16.0 [facility] Comment on above: Performed By: #### 2 951115, 2381102, 0403000, 47945002 ####[address] [place] [address] MCH (RBC) [Entitic mass] 31.6 pg Normal 27.0-34.0 [facility] Comment on above: Performed By: #### 2 017994, 9762113, 0370998, 05625480 ####[address] [address] MCHC (RBC) [Mass/Vol] 34.8 g/dL Normal 31.4-36.0 [facility] Comment on above: Performed By: #### 2 061913, 6761435, 2679758, 72650055 ####[address] [address] MCV (RBC) [Entitic vol] 90.9 fL Normal 80.0-100.0 [facility] Comment on above: Performed By: #### 2 356145, 9813729, 9752386, 15450100 ####[address] [address] Platelet mean volume (Bld) [Entitic vol] 8.0 fL Normal 6.4-10.8 [facility] Comment on above: Performed By: #### 2 029793, 9744959, 5551940, 03255322 ####[address] [address] Platelets (Bld) [#/Vol] 253.0 E9/L Normal 150.0-500.0 [facility] Comment on above: Performed By: #### 2 378633, 5291435, 1668066, 91339061 ####[address] [address] RBC (Bld) [#/Vol] 4.3 E12/L Normal 4.3-5.9 [facility] Comment on above: Performed By: #### 2 090989, 4271006, 5791724, 89858489 ####[address] [address] WBC corrected for nucl RBC Auto (Bld) [#/Vol] 4.8 E9/L Normal 4.0-11.0 [facility] Comment on above: Performed By: #### 2 721687, 6279484, 9423685, 82907279 ####[address] [place] [address] CHEMISTRYOrdered By: SYSTEM SYSTEM on 03-17-2023 Anion [...] Consent for Treatmenton 02-20 Consent for Treatment [id number]#[id number] IFF Normal [facility] HEMATOLOGYOrdered By: SYSTEM SYSTEM on 03-17-2023 [...] Ql (Urine sed) 3+ /HPF Abnormal Trace [facility] Comment on above: Performed By: #### 1 9783821, 6521691 ####[facility] [address] [place] [address] Bilirubin Ql (U) Negative Normal Negative [facility] Comment on above: Performed By: #### 1 8501625, 3890726 ####[facility] [address] [place] [address] Clarity (U) SL CLOUDY Invalid Interpretation Code [facility] Comment on above: Performed By: #### 1 9498247, 4137206 ####[facility] [address] [place] [address] Color (U) YELLOW Normal Yellow [facility] Comment on above: Performed By: #### 1 8416510, 0515118 ####[facility] [address] [place] [address] Epithelial cells.squamous LM.HPF (Urine sed) [#/Area] 5-8 Normal 0-2 [facility] Comment on above: Performed By: #### 1 0632561, 5932531 ####[facility] [address] [place] [address] Glucose Test strip (U) [Mass/Vol] Negative Normal Negative [facility] Comment on above: Performed By: #### 1 1275734, 1741396 ####[facility] [address] [place] [address] Hemoglobin Ql (U) Negative Normal Negative [facility] Comment on above: Performed By: #### 1 0561938, 7886396 ####[facility] [address] [place] [address] Ketones (U) [Mass/Vol] Negative Normal Negative [facility] Comment on above: Performed By: #### 1 0495944, 7296151 ####[facility] [address] [place] [address] [place].plasma/Lithi um.RBC (Bld) [Mass ratio] 0-3 Normal 0-3 [facility] Comment on above: Performed By: #### 1 3252298, 9014658 ####[address] [address] Nitrite Ql (U) Positive Abnormal Negative [facility] Comment on above: Performed By: #### 1 2961081, 5474920 ####[address] [address] pH (U) 6.0 [pH] Invalid Interpretation Code 5.0-9.0 [facility] Comment on above: Performed By: #### 1 1912101, 9483876 ####[address] [address] Protein (U) [Mass/Vol] Negative Normal Negative [facility] Comment on above: Performed By: #### 1 9056176, 2405189 ####[address] [address] Specific gravity (U) [Rel density] 1.025 Invalid Interpretation Code 1.005-1.030 [facility] Comment on above: Performed By: #### 1 9233455, 3038425 ####[place] [address] Type of Urine collection method Clean Catch Normal [facility] Comment on above: Performed By: #### 1 0659621, 5655816 ####[address] [address] Urobilinogen Qn (U) 0.2 {Amina'U}/dL Normal 0.0-1.0 [facility] Comment on above: Performed By: #### 1 9815824, 6836131 ####[address] [address] WBC Auto Ql (U) 1+ Abnormal Negative [facility] Comment on above: Performed By: #### 1 6906662, 6427688 ####[address] [address] WBC LM.HPF (Urine sed) [#/Area] 6-15 Abnormal 0-5 [facility] Comment on above: Performed By: #### 1 4289652, 6196648 ####[facility] [address] [place] [address] URINALYSISOrdered By: Gracie Villegas on 03-17-2023 Bacteria [...] AM) Normal Negative [facility] UA Auto SS [place].plasma/Lithi um.RBC (Bld) [Mass ratio] 0-3 /HPF Normal [...] [facility] UA Auto SS Urobilinogen Qn (U) 0.1839733 {Amina'U}/dL Normal 0.0 - 1.0 EU/dL [facility] UA Auto SS WBC Auto Ql (U) 1+ *ABN* (03/17/23 8:49 AM) Invalid Interpretation Code Negative [facility] UA Auto SS WBC LM.HPF (Urine sed) [#/Area] 6-15 /HPF Invalid Interpretation Code 0-5/HPF [facility] UA Auto SS XR Chest 2 Viewson [...] mGy = 0 DAP = 0 Normal [facility] eGFRon 03-17-2023 GFR/1.73 sq M.predicted among non-blacks MDRD (S/P/Bld) [Vol rate/Area] mL/min/{1.73_m2} Normal >=59 [facility] Comment on above: Order Comment: Order added by Discern Expert. Performed By: #### 2 895387, 1111705, 7971551, 51827136 ####[facility] [address] [place] [address] Physician Orderon 02-10-2023 Physician Order [id number] TIFF Normal [facility] MG MAMM SCREEN 3D ANA CADon 07-21-2022 MG MAMM SCREEN 3D ANA CAD Patient: ELIZABETH SÁNCHEZ Exam Date: 07/21/2022 : 1965 Gender:F Ordering : DR CASSIE LORENZ M.D. Admission #: [id number] Family : Order #: [id number] CLICK HERE TO VIEW EXAM RADIOLOGY REPORT [...] Treatments None Family Cancers None LOCATION: [facility] BREAST COMPOSITION: Scattered areas fibroglandular density. FINDINGS: [...] MD on 07/22/2022 at 09:11 Normal [facility] ECG 12 lead ECGon 02-20-2021 ECG 12 lead ECG [facility] [address] [place] [address] Electrocardiograph Report Signed Patient: Elizabeth Sánchez MR#: [id number] : 1965 Acct:[id number] Age/Sex: 55 / F ADM Date: 02/14/21 Loc: Room: 9P3414-7 Type: ADM IN Attending Dr: Giovanni Haider [...] By Hina Lopez MD 1 04/24/20 1324 [facility] Stool Occult Blood (Guaiac)o n 02-17-2021 Stool Occult Blood (Guaiac) Occult Blood Negative for Occult Blood by Guaiac Methodology Reference range = Negative PERFORMED BY: [place] [address] PATHOLOGIST ASSISTANT FITNESS MANAGER DANIELLE ANDERSON M.D. [facility] Comment on above: Performed By: #### A BG #### Point of Care testing , Comprehensive Metabolic Pane veronique 02-15-2021 Albumin [Mass/Vol] 2.3 g/dL Low 3.2-5.5 [facility] Comment on above: Performed By: #### H EPATIC, PHOS, MG, HS TROP, CBC, BMP #### [facility] [address] [place] [address] Albumin/Globulin [Mass ratio] 0.9 {ratio} [facility] Comment on above: Performed By: #### H EPATIC, PHOS, MG, HS TROP, CBC, BMP #### [facility] [address] [place] [address] [place] ALP [Catalytic activity/Vol] 66 U/L Normal 32-92 [facility] Comment on above: Performed By: #### H EPATIC, PHOS, MG, HS TROP, CBC, BMP #### [facility] [address] [place] [address] [place] ALT [Catalytic activity/Vol] 52 U/L Normal 10-60 [facility] Comment on above: Performed By: #### H EPATIC, PHOS, MG, HS TROP, CBC, BMP #### [facility] [address] [place] [address] [place] AST [Catalytic activity/Vol] 61 U/L High 10-42 [facility] Comment on above: Performed By: #### H EPATIC, PHOS, MG, HS TROP, CBC, BMP #### [facility] [address] Bilirubin [Mass/Vol] 0.3 mg/dL Normal 0.3-1.2 [facility] Comment on above: Performed By: #### H EPATIC, PHOS, MG, HS TROP, CBC, BMP #### [facility] [address] Calcium [Mass/Vol] 8.4 mg/dL Normal 8.2-10.2 [facility] Comment on above: Performed By: #### H EPATIC, PHOS, MG, HS TROP, CBC, BMP #### [facility] [address] Chloride [Moles/Vol] 106 mmol/L Normal 95-114 [facility] Comment on above: Performed By: #### H EPATIC, PHOS, MG, HS TROP, CBC, BMP #### [facility] [address] [place] [address] CO2 [Moles/Vol] 25.8 mmol/L Normal 22.0-30.0 [facility] Comment on above: Performed By: #### H EPATIC, PHOS, MG, HS TROP, CBC, BMP #### [facility] [address] [place] [address] Creatinine [Mass/Vol] 0.64 mg/dL Normal 0.44-1.03 [facility] Comment on above: Performed By: #### H EPATIC, PHOS, MG, HS TROP, CBC, BMP #### [facility] [address] [place] [address] [place] Creatinine Clr Calc Pharmacy 121.10 [facility] Comment on above: Performed By: #### H EPATIC, PHOS, MG, HS TROP, CBC, BMP #### [facility] [address] [place] [address] Estimated GFR ( Prerna > 60 [facility] Comment on above: Result Comment: GFR estimated reference range: According to KDOQI guidelines, <60 ml/min/1.73m2 is sufficient to diagnose a patient with chronic kidney disease. Performed By: #### H EPATIC, PHOS, MG, HS TROP, CBC, BMP #### [address] Estimated GFR (Non- Am > 60 Normal [facility] Comment on above: Performed By: #### H EPATIC, PHOS, MG, HS TROP, CBC, BMP #### [address] Globulin (S) [Mass/Vol] 2.7 g/dL Normal [facility] Comment on above: Performed By: #### H EPATIC, PHOS, MG, HS TROP, CBC, BMP #### [address] Glucose [Mass/Vol] 116 mg/dL High 70-100 [facility] Comment on above: Result Comment: [facility] Glucose Reference Range is dependent on time and content of last meal. Glucose of more than 200 mg/dL in a nonstressed, ambulatory subject supports the diagnosis of Diabetes Mellitus. ADA recommended reference range Performed By: #### H EPATIC, PHOS, MG, HS TROP, CBC, BMP #### [address] Potassium [Moles/Vol] 4.2 mmol/L Normal 3.5-5.1 [facility] Comment on above: Performed By: #### H EPATIC, PHOS, MG, HS TROP, CBC, BMP #### [address] Protein [Mass/Vol] 5.0 g/dL Low 6.1-7.9 [facility] Comment on above: Performed By: #### H EPATIC, PHOS, MG, HS TROP, CBC, BMP #### [address] Sodium [Moles/Vol] 141 mmol/L Normal 136-146 [facility] Comment on above: Performed By: #### H EPATIC, PHOS, MG, HS TROP, CBC, BMP #### [facility] [address] [place] [address] [place] Urea nitrogen [Mass/Vol] 8 mg/dL Low 9-23 [facility] Comment on above: Performed By: #### H EPATIC, PHOS, MG, HS TROP, CBC, BMP #### [facility] [address] [place] [address] [place] Diff and CBCon 02-15-2021 Erythrocyte distribution width (RBC) [Ratio] 13.4 % Normal 11.9-15.3 [facility] Comment on above: Performed By: #### A BG #### Point of Care testing , Hematocrit (Bld) [Volume fraction] 30.8 % Low 34.0-46.4 [facility] Comment on above: Performed By: #### A BG #### Point of Care testing , Hemoglobin (Bld) [Mass/Vol] 10.3 g/dL Low 11.8-15.4 [facility] Comment on above: Performed By: #### A BG #### Point of Care testing , Lymphocytes/100 WBC (Bld) 41 % Normal 18-42 [facility] Comment on above: Performed By: #### A BG #### Point of Care testing , MCH (RBC) [Entitic mass] 32.2 pg Normal 24.7-34.3 [facility] Comment on above: Performed By: #### A BG #### Point of Care testing , MCV (RBC) [Entitic vol] 96.8 fL Normal 80-100 [facility] Comment on above: Performed By: #### A BG #### Point of Care testing , Mean Corpuscular HGB Conc 33.3 g/dL Normal 32.0-35.0 [facility] Comment on above: Performed By: #### A BG #### Point of Care testing , Metamyelocytes 2 % High 0-0 [facility] Comment on above: Performed By: #### A BG #### Point of Care testing , Monocytes/100 WBC (Bld) 7 % Normal 2-11 [facility] Comment on above: Performed By: #### A BG #### Point of Care testing , Nucleated RBC/100 WBC (Bld) [Ratio] 0.2 % Normal 0-0.5 [facility] Comment on above: Result Comment: PERF ORMED BY: [address] [place] [address] PATHOLOGIST ASSISTANT FITNESS MANAGER DANIELLE ANDERSON M.D. Performed By: #### A BG #### Point of Care testing , Platelet Estimate Normal Normal Normal [facility] Comment on above: Performed By: #### A BG #### Point of Care testing , Platelet mean volume (Bld) [Entitic vol] 8.0 fL Normal 6.3-10.7 [facility] Comment on above: Performed By: #### A BG #### Point of Care testing , Platelet Morphology Normal Normal Normal [facility] Comment on above: Result Comment: PERF ORMED BY: [facility] [address] [place] [address] PATHOLOGIST ASSISTANT FITNESS MANAGER DANIELLE ANDERSON M.D. Performed By: #### A BG #### Point of Care testing , Platelets (Bld) [#/Vol] 366 10*3/uL Normal 150-450 [facility] Comment on above: Performed By: #### A BG #### Point of Care testing , RBC (Bld) [#/Vol] 3.18 10*6/uL Low 3.60-5.00 [facility] Comment on above: Performed By: #### A BG #### Point of Care testing , RBC morphology finding Nom (Bld) Normal Normal [facility] Comment on above: Performed By: #### A BG #### Point of Care testing , Segmented neutrophils/100 WBC (Bld) 50 % Normal 50-70 [facility] Comment on above: Performed By: #### A BG #### Point of Care testing , WBC (Bld) [#/Vol] 5.0 10*3/uL Normal 4.5-11.0 [facility] Comment on above: Performed By: #### A BG #### Point of Care testing , Folateon 02-15-2021 Folate 6.3 ng/mL Normal >5.9 [facility] Comment on above: Result Comment: Lizeth te reference range: >5.9 ng/ml The WHO technical consultation on folate and vitamin b12 deficiencies has determined that folate concentrations less than 4 ng/ml are considered deficient. PERFORMED BY: [place] [address] PATHOLOGIST ASSISTANT FITNESS MANAGER DANIELLE ANDERSON M.D. Performed By: #### A BG #### Point of Care testing , Prealbuminon 02-15-2021 Prealbumin [Mass/Vol] 17.6 mg/dL Low 18.0-38.0 [facility] Comment on above: Performed By: #### H EPATIC, PHOS, MG, HS TROP, CBC, BMP #### [facility] [address] [place] [address] Vitamin B12on 02-15-2021 Cobalamin (Vitamin B12) [Mass/Vol] 348 pg/mL Normal 180-914 [facility] Comment on above: Performed By: #### H EPATIC, PHOS, MG, HS TROP, CBC, BMP #### [facility] [address] [place] [address] Comprehensive Metabolic Pane veronique 02-14-2021 Albumin [Mass/Vol] 2.3 g/dL Low 3.2-5.5 [facility] Comment on above: Performed By: #### H EPATIC, PHOS, MG, HS TROP, CBC, BMP #### [facility] [address] [place] [address] Albumin/Globulin [Mass ratio] 0.7 {ratio} Normal [facility] Comment on above: Performed By: #### H EPATIC, PHOS, MG, HS TROP, CBC, BMP #### [facility] [address] [place] [address] ALP [Catalytic activity/Vol] 65 U/L Normal 32-92 [facility] Comment on above: Performed By: #### H EPATIC, PHOS, MG, HS TROP, CBC, BMP #### [facility] [address] [place] [address] ALT [Catalytic activity/Vol] 58 U/L Normal 10-60 [facility] Comment on above: Performed By: #### H EPATIC, PHOS, MG, HS TROP, CBC, BMP #### [facility] [address] AST [Catalytic activity/Vol] 86 U/L High 10-42 [facility] Comment on above: Performed By: #### H EPATIC, PHOS, MG, HS TROP, CBC, BMP #### [facility] [address] Bilirubin [Mass/Vol] 0.4 mg/dL Normal 0.3-1.2 [facility] Comment on above: Performed By: #### H EPATIC, PHOS, MG, HS TROP, CBC, BMP #### [address] Calcium [Mass/Vol] 8.4 mg/dL Normal 8.2-10.2 [facility] Comment on above: Performed By: #### H EPATIC, PHOS, MG, HS TROP, CBC, BMP #### [address] Chloride [Moles/Vol] 104 mmol/L Normal 95-114 [facility] Comment on above: Performed By: #### H EPATIC, PHOS, MG, HS TROP, CBC, BMP #### [facility] [address] [place] [address] CO2 [Moles/Vol] 26.2 mmol/L Normal 22.0-30.0 [facility] Comment on above: Performed By: #### H EPATIC, PHOS, MG, HS TROP, CBC, BMP #### [facility] [address] Creatinine [Mass/Vol] 0.70 mg/dL Normal 0.44-1.03 [facility] Comment on above: Performed By: #### H EPATIC, PHOS, MG, HS TROP, CBC, BMP #### [facility] [address] [place] [address] [place] Creatinine Clr Calc Pharmacy 110.72 Normal [facility] Comment on above: Result Comment: PERF ORMED BY: [place] [address] PATHOLOGIST ASSISTANT FITNESS MANAGER DANIELLE ANDERSON M.D. Performed By: #### H EPATIC, PHOS, MG, HS TROP, CBC, BMP #### [address] Estimated GFR ( Prerna > 60 [facility] Comment on above: Result Comment: GFR estimated reference range: According to KDOQI guidelines, <60 ml/min/1.73m2 is sufficient to diagnose a patient with chronic kidney disease. Performed By: #### H EPATIC, PHOS, MG, HS TROP, CBC, BMP #### [address] Estimated GFR (Non- Am > 60 [facility] Comment on above: Performed By: #### H EPATIC, PHOS, MG, HS TROP, CBC, BMP #### [address] Globulin (S) [Mass/Vol] 3.1 g/dL Normal [facility] Comment on above: Performed By: #### H EPATIC, PHOS, MG, HS TROP, CBC, BMP #### [address] Glucose [Mass/Vol] 119 mg/dL High 70-100 [facility] Comment on above: Result Comment: [place] Glucose Reference Range is dependent on time and content of last meal. Glucose of more than 200 mg/dL in a nonstressed, ambulatory subject supports the diagnosis of Diabetes Mellitus. ADA recommended reference range Performed By: #### H EPATIC, PHOS, MG, HS TROP, CBC, BMP #### [address] Potassium [Moles/Vol] 4.0 mmol/L Normal 3.5-5.1 [facility] Comment on above: Performed By: #### H EPATIC, PHOS, MG, HS TROP, CBC, BMP #### [address] Protein [Mass/Vol] 5.4 g/dL Low 6.1-7.9 [facility] Comment on above: Performed By: #### H EPATIC, PHOS, MG, HS TROP, CBC, BMP #### [address] Sodium [Moles/Vol] 140 mmol/L Normal 136-146 [facility] Comment on above: Performed By: #### H EPATIC, PHOS, MG, HS TROP, CBC, BMP #### [address] Urea nitrogen [Mass/Vol] 9 mg/dL Normal 9-23 [facility] Comment on above: Performed By: #### H EPATIC, PHOS, MG, HS TROP, CBC, BMP #### [address] D-Dimer High Sensitivityon 1 04-16-2020 D-Dimer High Sensitivity 464 ng/mL High 0-243 [facility] Comment on above: Result Comment: The reference [...] patients due to co-morbid conditions. PERFORMED BY: [place] [address] PATHOLOGIST ASSISTANT FITNESS MANAGER DANIELLE ANDERSON M.D. Performed By: #### H EPATIC, PHOS, MG, HS TROP, CBC, BMP #### [address] Diff and CBCon 02-14-2021 Band form neutrophils/100 WBC (Bld) 1 % Normal 0-5 [facility] Comment on above: Performed By: #### H EPATIC, PHOS, MG, HS TROP, CBC, BMP #### [address] Erythrocyte distribution width (RBC) [Ratio] 13.3 % Normal 11.9-15.3 [facility] Comment on above: Performed By: #### H EPATIC, PHOS, MG, HS TROP, CBC, BMP #### [address] Hematocrit (Bld) [Volume fraction] 32.4 % Low 34.0-46.4 [facility] Comment on above: Performed By: #### H EPATIC, PHOS, MG, HS TROP, CBC, BMP #### [address] Hemoglobin (Bld) [Mass/Vol] 10.8 g/dL Low 11.8-15.4 [facility] Comment on above: Performed By: #### H EPATIC, PHOS, MG, HS TROP, CBC, BMP #### [address] Lymphocytes/100 WBC (Bld) 25 % Normal 18-42 [facility] Comment on above: Performed By: #### H EPATIC, PHOS, MG, HS TROP, CBC, BMP #### [address] MCH (RBC) [Entitic mass] 31.7 pg Normal 24.7-34.3 [facility] Comment on above: Performed By: #### H EPATIC, PHOS, MG, HS TROP, CBC, BMP #### [address] MCV (RBC) [Entitic vol] 95.2 fL Normal 80-100 [facility] Comment on above: Performed By: #### H EPATIC, PHOS, MG, HS TROP, CBC, BMP #### [address] Mean Corpuscular HGB Conc 33.3 g/dL Normal 32.0-35.0 [facility] Comment on above: Performed By: #### H EPATIC, PHOS, MG, HS TROP, CBC, BMP #### [facility] [address] [place] [address] [place] Metamyelocytes 1 % High 0-0 [facility] Comment on above: Performed By: #### H EPATIC, PHOS, MG, HS TROP, CBC, BMP #### [facility] [address] [place] [address] [place] Monocytes/100 WBC (Bld) 5 % Normal 2-11 [facility] Comment on above: Performed By: #### H EPATIC, PHOS, MG, HS TROP, CBC, BMP #### [facility] [address] Nucleated RBC/100 WBC (Bld) [Ratio] 0.1 % Normal 0-0.5 [facility] Comment on above: Result Comment: PERF ORMED BY: [place] [address] PATHOLOGIST ASSISTANT FITNESS MANAGER DANIELLE ANDERSON M.D. Performed By: #### H EPATIC, PHOS, MG, HS TROP, CBC, BMP #### [facility] [address] Platelet Estimate Normal Normal Normal [facility] Comment on above: Performed By: #### H EPATIC, PHOS, MG, HS TROP, CBC, BMP #### [facility] [address] Platelet mean volume (Bld) [Entitic vol] 8.1 fL Normal 6.3-10.7 [facility] Comment on above: Performed By: #### H EPATIC, PHOS, MG, HS TROP, CBC, BMP #### [facility] [address] Platelet Morphology Normal Normal Normal [facility] Comment on above: Result Comment: PERF ORMED BY: [place] [address] PATHOLOGIST ASSISTANT FITNESS MANAGER DANIELLE ANDERSON M.D. Performed By: #### H EPATIC, PHOS, MG, HS TROP, CBC, BMP #### [facility] [address] [place] [address] Platelets (Bld) [#/Vol] 391 10*3/uL Normal 150-450 [facility] Comment on above: Performed By: #### H EPATIC, PHOS, MG, HS TROP, CBC, BMP #### [address] RBC (Bld) [#/Vol] 3.40 10*6/uL Low 3.60-5.00 [facility] Comment on above: Performed By: #### H EPATIC, PHOS, MG, HS TROP, CBC, BMP #### [address] RBC morphology finding Nom (Bld) Normal Normal [facility] Comment on above: Performed By: #### H EPATIC, PHOS, MG, HS TROP, CBC, BMP #### [address] Segmented neutrophils/100 WBC (Bld) 68 % Normal 50-70 [facility] Comment on above: Performed By: #### H EPATIC, PHOS, MG, HS TROP, CBC, BMP #### [address] WBC (Bld) [#/Vol] 5.8 10*3/uL Normal 4.5-11.0 [facility] Comment on above: Performed By: #### H EPATIC, PHOS, MG, HS TROP, CBC, BMP #### [address] Dipstick and Microscopicon 1 04-16-2020 Appearance (U) Cloudy Critically abnormal Clear [facility] Comment on above: Order Comment: Name Collection Type:: Voided Performed By: #### H EPATIC, PHOS, MG, HS TROP, CBC, BMP #### [address] Bacteria,Urine 1+ High None Seen [facility] Comment on above: Order Comment: Name Collection Type:: Voided Performed By: #### H EPATIC, PHOS, MG, HS TROP, CBC, BMP #### [address] Bilirubin,Urine Negative Normal Negative [facility] Comment on above: Order Comment: Name Collection Type:: Voided Performed By: #### H EPATIC, PHOS, MG, HS TROP, CBC, BMP #### [address] Color (U) Dark Yellow Critically abnormal Yellow [facility] Comment on above: Order Comment: Name Collection Type:: Voided Performed By: #### H EPATIC, PHOS, MG, HS TROP, CBC, BMP #### [address] Glucose Ql (U) Normal Normal Normal [facility] Comment on above: Order Comment: Name Collection Type:: Voided Performed By: #### H EPATIC, PHOS, MG, HS TROP, CBC, BMP #### [address] Hyaline Casts,Urine 9-19 High 0-8 [facility] Comment on above: Order Comment: Name Collection Type:: Voided Result Comment: PERF ORMED BY: [place] [address] PATHOLOGIST ASSISTANT FITNESS MANAGER DANIELLE ANDERSON M.D. Performed By: #### H EPATIC, PHOS, MG, HS TROP, CBC, BMP #### [address] Ketones Ql (U) 1+ High Negative [facility] Comment on above: Order Comment: Name Collection Type:: Voided Performed By: #### H EPATIC, PHOS, MG, HS TROP, CBC, BMP #### [address] Leukocyte esterase Test strip Ql (U) 1+ High Negative [facility] Comment on above: Order Comment: Name Collection Type:: Voided Performed By: #### H EPATIC, PHOS, MG, HS TROP, CBC, BMP #### [address] Nitrite,Urine Negative Normal Negative [facility] Comment on above: Order Comment: Name Collection Type:: Voided Performed By: #### H EPATIC, PHOS, MG, HS TROP, CBC, BMP #### [address] Occult Blood,Urine Negative Normal Negative [facility] Comment on above: Order Comment: Name Collection Type:: Voided Result Comment: PERF ORMED BY: [place] [address] PATHOLOGIST ASSISTANT FITNESS MANAGER DANIELLE ANDERSON M.D. Performed By: #### H EPATIC, PHOS, MG, HS TROP, CBC, BMP #### [address] pH (U) 5.5 [pH] Normal 5.0-9.0 [facility] Comment on above: Order Comment: Name Collection Type:: Voided Performed By: #### H EPATIC, PHOS, MG, HS TROP, CBC, BMP #### [address] Protein (U) [Mass/Vol] 30 mg/dL High Negative [facility] Comment on above: Order Comment: Name Collection Type:: Voided Performed By: #### H EPATIC, PHOS, MG, HS TROP, CBC, BMP #### [address] RBC,Urine None Seen Normal 0-4 [facility] Comment on above: Order Comment: Name Collection Type:: Voided Performed By: #### H EPATIC, PHOS, MG, HS TROP, CBC, BMP #### [address] Specificy [place],Urine 1.034 High 1.001-1.030 [facility] Comment on above: Order Comment: Name Collection Type:: Voided Performed By: #### H EPATIC, PHOS, MG, HS TROP, CBC, BMP #### [address] [address] [place] Squamous Epithelial Cell,Urine 10-19 High 0-2 [facility] Comment on above: Order Comment: Name Collection Type:: Voided Performed By: #### H EPATIC, PHOS, MG, HS TROP, CBC, BMP #### [facility] [address] Urobilinogen,Urine Normal Normal Normal [facility] Comment on above: Order Comment: Name Collection Type:: Voided Performed By: #### H EPATIC, PHOS, MG, HS TROP, CBC, BMP #### [facility] [address] [place] [id number] [facility] WBC,Urine 10-19 High 0-4 [facility] Comment on above: Order Comment: Name Collection Type:: Voided Performed By: #### H EPATIC, PHOS, MG, HS TROP, CBC, BMP #### [facility] [address] [place] [address] Urine Cultureon 02-14-2021 Bacteria identified Cx Nom (U) ORGANISM: Enterococcus faecalis (O:ENTFAC) [place] Count >100,000 Aerobic YUN Charge (PC45) -- [...] RESISTANT TO ALL B-LACTAM DRUGS. PERFORMED BY: [place] [address] PATHOLOGIST ASSISTANT FITNESS MANAGER DANIELLE ANDERSON M.D. [facility] Comment on above: Performed By: #### H EPATIC, PHOS, MG, HS TROP, CBC, BMP #### [facility] [address] [place] [address] Comprehensive Metabolic Pane veronique 02-13-2021 Albumin [Mass/Vol] 2.2 g/dL Low 3.2-5.5 [facility] Comment on above: Performed By: #### H EPATIC, PHOS, MG, HS TROP, CBC, BMP #### [address] Albumin/Globulin [Mass ratio] 0.7 {ratio} [facility] Comment on above: Performed By: #### H EPATIC, PHOS, MG, HS TROP, CBC, BMP #### [facility] [address] [place] [address] ALP [Catalytic activity/Vol] 62 U/L Normal 32-92 [facility] Comment on above: Performed By: #### H EPATIC, PHOS, MG, HS TROP, CBC, BMP #### [facility] [address] [place] [address] ALT [Catalytic activity/Vol] 57 U/L Normal 10-60 [facility] Comment on above: Performed By: #### H EPATIC, PHOS, MG, HS TROP, CBC, BMP #### [facility] [address] [place] [address] AST [Catalytic activity/Vol] 119 U/L High 10-42 [facility] Comment on above: Performed By: #### H EPATIC, PHOS, MG, HS TROP, CBC, BMP #### [facility] [address] [place] [address] Bilirubin [Mass/Vol] 0.2 mg/dL Low 0.3-1.2 [facility] Comment on above: Performed By: #### H EPATIC, PHOS, MG, HS TROP, CBC, BMP #### [facility] [address] [place] [address] Calcium [Mass/Vol] 8.4 mg/dL Normal 8.2-10.2 [facility] Comment on above: Performed By: #### H EPATIC, PHOS, MG, HS TROP, CBC, BMP #### [facility] [address] [place] [address] Chloride [Moles/Vol] 104 mmol/L Normal 95-114 [facility] Comment on above: Performed By: #### H EPATIC, PHOS, MG, HS TROP, CBC, BMP #### [address] CO2 [Moles/Vol] 25.6 mmol/L Normal 22.0-30.0 [facility] Comment on above: Performed By: #### H EPATIC, PHOS, MG, HS TROP, CBC, BMP #### [address] Creatinine [Mass/Vol] 0.67 mg/dL Normal 0.44-1.03 [facility] Comment on above: Performed By: #### H EPATIC, PHOS, MG, HS TROP, CBC, BMP #### [address] Creatinine Clr Calc Pharmacy 115.74 [facility] Comment on above: Result Comment: PERF ORMED BY: [place] [address] PATHOLOGIST ASSISTANT FITNESS MANAGER DANIELLE ANDERSON M.D. Performed By: #### H EPATIC, PHOS, MG, HS TROP, CBC, BMP #### [address] Estimated GFR ( Prerna > 60 [facility] Comment on above: Result Comment: GFR estimated reference range: According to KDOQI guidelines, <60 ml/min/1.73m2 is sufficient to diagnose a patient with chronic kidney disease. Performed By: #### H EPATIC, PHOS, MG, HS TROP, CBC, BMP #### [address] Estimated GFR (Non- Am > 60 [facility] Comment on above: Performed By: #### H EPATIC, PHOS, MG, HS TROP, CBC, BMP #### [facility] [address] Globulin (S) [Mass/Vol] 3.1 g/dL Normal [facility] Comment on above: Performed By: #### H EPATIC, PHOS, MG, HS TROP, CBC, BMP #### [address] Glucose [Mass/Vol] 121 mg/dL High 70-100 [facility] Comment on above: Result Comment: [facility] Glucose Reference Range is dependent on time and content of last meal. Glucose of more than 200 mg/dL in a nonstressed, ambulatory subject supports the diagnosis of Diabetes Mellitus. ADA recommended reference range Performed By: #### H EPATIC, PHOS, MG, HS TROP, CBC, BMP #### [address] Potassium [Moles/Vol] 3.6 mmol/L Normal 3.5-5.1 [facility] Comment on above: Performed By: #### H EPATIC, PHOS, MG, HS TROP, CBC, BMP #### [address] Protein [Mass/Vol] 5.3 g/dL Low 6.1-7.9 [facility] Comment on above: Performed By: #### H EPATIC, PHOS, MG, HS TROP, CBC, BMP #### [address] Sodium [Moles/Vol] 139 mmol/L Normal 136-146 [facility] Comment on above: Performed By: #### H EPATIC, PHOS, MG, HS TROP, CBC, BMP #### [place] [address] [place] Urea nitrogen [Mass/Vol] 7 mg/dL Low 9-23 [facility] Comment on above: Performed By: #### H EPATIC, PHOS, MG, HS TROP, CBC, BMP #### [address] D-Dimer High Sensitivityon 1 1-25-2021 D-Dimer High Sensitivity 404 ng/mL High 0-243 [facility] Comment on above: Result Comment: The reference [...] patients due to co-morbid conditions. PERFORMED BY: [place] [address] PATHOLOGIST ASSISTANT FITNESS MANAGER DANIELLE ANDERSON M.D. Performed By: #### H EPATIC, PHOS, MG, HS TROP, CBC, BMP #### [address] Diff and CBCon 02-13-2021 Erythrocyte distribution width (RBC) [Ratio] 13.4 % Normal 11.9-15.3 [facility] Comment on above: Performed By: #### H EPATIC, PHOS, MG, HS TROP, CBC, BMP #### [address] Hematocrit (Bld) [Volume fraction] 33.2 % Low 34.0-46.4 [facility] Comment on above: Performed By: #### H EPATIC, PHOS, MG, HS TROP, CBC, BMP #### [address] Hemoglobin (Bld) [Mass/Vol] 11.0 g/dL Low 11.8-15.4 [facility] Comment on above: Performed By: #### H EPATIC, PHOS, MG, HS TROP, CBC, BMP #### [address] Lymphocytes/100 WBC (Bld) 15 % Low 18-42 [facility] Comment on above: Performed By: #### H EPATIC, PHOS, MG, HS TROP, CBC, BMP #### [address] MCH (RBC) [Entitic mass] 31.4 pg Normal 24.7-34.3 [facility] Comment on above: Performed By: #### H EPATIC, PHOS, MG, HS TROP, CBC, BMP #### [address] MCV (RBC) [Entitic vol] 94.6 fL Normal 80-100 [facility] Comment on above: Performed By: #### H EPATIC, PHOS, MG, HS TROP, CBC, BMP #### [address] Mean Corpuscular HGB Conc 33.2 g/dL Normal 32.0-35.0 [facility] Comment on above: Performed By: #### H EPATIC, PHOS, MG, HS TROP, CBC, BMP #### [address] Metamyelocytes 2 % High 0-0 [facility] Comment on above: Performed By: #### H EPATIC, PHOS, MG, HS TROP, CBC, BMP #### [address] Monocytes/100 WBC (Bld) 11 % Normal 2-11 [facility] Comment on above: Performed By: #### H EPATIC, PHOS, MG, HS TROP, CBC, BMP #### [address] Nucleated RBC/100 WBC (Bld) [Ratio] 0.1 % Normal 0-0.5 [facility] Comment on above: Performed By: #### H EPATIC, PHOS, MG, HS TROP, CBC, BMP #### [address] Platelet Estimate Normal Normal Normal [facility] Comment on above: Performed By: #### H EPATIC, PHOS, MG, HS TROP, CBC, BMP #### [address] Platelet mean volume (Bld) [Entitic vol] 7.8 fL Normal 6.3-10.7 [facility] Comment on above: Performed By: #### H EPATIC, PHOS, MG, HS TROP, CBC, BMP #### [address] Platelet Morphology Normal Normal Normal [facility] Comment on above: Result Comment: PERF ORMED BY: [place] [address] PATHOLOGIST ASSISTANT FITNESS MANAGER DANIELLE ANDERSON M.D. Performed By: #### H EPATIC, PHOS, MG, HS TROP, CBC, BMP #### [address] Platelets (Bld) [#/Vol] 387 10*3/uL Normal 150-450 [facility] Comment on above: Performed By: #### H EPATIC, PHOS, MG, HS TROP, CBC, BMP #### [address] RBC (Bld) [#/Vol] 3.51 10*6/uL Low 3.60-5.00 [facility] Comment on above: Performed By: #### H EPATIC, PHOS, MG, HS TROP, CBC, BMP #### [address] RBC morphology finding Nom (Bld) Normal Normal [facility] Comment on above: Performed By: #### H EPATIC, PHOS, MG, HS TROP, CBC, BMP #### [address] Segmented neutrophils/100 WBC (Bld) 72 % High 50-70 [facility] Comment on above: Performed By: #### H EPATIC, PHOS, MG, HS TROP, CBC, BMP #### [address] WBC (Bld) [#/Vol] 6.1 10*3/uL Normal 4.5-11.0 [facility] Comment on above: Performed By: #### H EPATIC, PHOS, MG, HS TROP, CBC, BMP #### [facility] [address] [place] [address] Complete Blood Count Auto Di ffon 02-12-2021 Basophils (Bld) [#/Vol] 0.0 10*3/uL Normal 0.0-0.2 [facility] Comment on above: Result Comment: PERF ORMED BY: [place] [address] PATHOLOGIST ASSISTANT FITNESS MANAGER DANIELLE ANDERSON M.D. Performed By: #### H EPATIC, PHOS, MG, HS TROP, CBC, BMP #### [address] Basophils/100 WBC (Bld) 0.4 % Normal . [facility] Comment on above: Performed By: #### H EPATIC, PHOS, MG, HS TROP, CBC, BMP #### [address] Eosinophils (Bld) [#/Vol] 0.0 10*3/uL Normal 0.0-0.45 [facility] Comment on above: Performed By: #### H EPATIC, PHOS, MG, HS TROP, CBC, BMP #### [address] Eosinophils/100 WBC (Bld) 0.0 % Normal . [facility] Comment on above: Performed By: #### H EPATIC, PHOS, MG, HS TROP, CBC, BMP #### [address] Erythrocyte distribution width (RBC) [Ratio] 13.4 % Normal 11.9-15.3 [facility] Comment on above: Performed By: #### H EPATIC, PHOS, MG, HS TROP, CBC, BMP #### [address] Hematocrit (Bld) [Volume fraction] 34.1 % Normal 34.0-46.4 [facility] Comment on above: Performed By: #### H EPATIC, PHOS, MG, HS TROP, CBC, BMP #### [address] Hemoglobin (Bld) [Mass/Vol] 11.3 g/dL Low 11.8-15.4 [facility] Comment on above: Performed By: #### H EPATIC, PHOS, MG, HS TROP, CBC, BMP #### [address] Lymphocytes (Bld) [#/Vol] 1.1 10*3/uL Normal 1.00-4.8 [facility] Comment on above: Performed By: #### H EPATIC, PHOS, MG, HS TROP, CBC, BMP #### [address] Lymphocytes/100 WBC (Bld) 24.7 % Normal . [facility] Comment on above: Performed By: #### H EPATIC, PHOS, MG, HS TROP, CBC, BMP #### [address] MCH (RBC) [Entitic mass] 31.6 pg Normal 24.7-34.3 [facility] Comment on above: Performed By: #### H EPATIC, PHOS, MG, HS TROP, CBC, BMP #### [address] MCV (RBC) [Entitic vol] 95.8 fL Normal 80-100 [facility] Comment on above: Performed By: #### H EPATIC, PHOS, MG, HS TROP, CBC, BMP #### [address] Mean Corpuscular HGB Conc 33.0 g/dL Normal 32.0-35.0 [facility] Comment on above: Performed By: #### H EPATIC, PHOS, MG, HS TROP, CBC, BMP #### [address] Monocytes (Bld) [#/Vol] 0.6 10*3/uL Normal 0.0-0.8 [facility] Comment on above: Performed By: #### H EPATIC, PHOS, MG, HS TROP, CBC, BMP #### [facility] [address] [place] [address] [place] Monocytes/100 WBC (Bld) 13.1 % Normal . [facility] Comment on above: Performed By: #### H EPATIC, PHOS, MG, HS TROP, CBC, BMP #### [facility] [address] [place] [address] [place] Neutrophils (Bld) [#/Vol] 2.8 10*3/uL Normal 1.8-7.7 [facility] Comment on above: Performed By: #### H EPATIC, PHOS, MG, HS TROP, CBC, BMP #### [address] Neutrophils/100 WBC (Bld) 61.8 % Normal . [facility] Comment on above: Performed By: #### H EPATIC, PHOS, MG, HS TROP, CBC, BMP #### [place] [address] [place] Nucleated RBC/100 WBC (Bld) [Ratio] 0.1 % Normal 0-0.5 [facility] Comment on above: Performed By: #### H EPATIC, PHOS, MG, HS TROP, CBC, BMP #### [address] Platelet mean volume (Bld) [Entitic vol] 8.3 fL Normal 6.3-10.7 [facility] Comment on above: Performed By: #### H EPATIC, PHOS, MG, HS TROP, CBC, BMP #### [facility] [address] [place] [address] [place] Platelets (Bld) [#/Vol] 304 10*3/uL Normal 150-450 [facility] Comment on above: Performed By: #### H EPATIC, PHOS, MG, HS TROP, CBC, BMP #### [facility] [address] [place] [address] [place] RBC (Bld) [#/Vol] 3.56 10*6/uL Low 3.60-5.00 [facility] Comment on above: Performed By: #### H EPATIC, PHOS, MG, HS TROP, CBC, BMP #### [address] WBC (Bld) [#/Vol] 4.6 10*3/uL Normal 4.5-11.0 [facility] Comment on above: Performed By: #### H EPATIC, PHOS, MG, HS TROP, CBC, BMP #### [address] Comprehensive Metabolic Pane veronique 02-12-2021 Albumin [Mass/Vol] 2.2 g/dL Low 3.2-5.5 [facility] Comment on above: Performed By: #### H EPATIC, PHOS, MG, HS TROP, CBC, BMP #### [address] Albumin/Globulin [Mass ratio] 0.7 {ratio} Normal [facility] Comment on above: Performed By: #### H EPATIC, PHOS, MG, HS TROP, CBC, BMP #### [address] ALP [Catalytic activity/Vol] 55 U/L Normal 32-92 [facility] Comment on above: Performed By: #### H EPATIC, PHOS, MG, HS TROP, CBC, BMP #### [facility] [address] [place] [address] ALT [Catalytic activity/Vol] 35 U/L Normal 10-60 [facility] Comment on above: Performed By: #### H EPATIC, PHOS, MG, HS TROP, CBC, BMP #### [facility] [address] [place] [address] AST [Catalytic activity/Vol] 60 U/L High 10-42 [facility] Comment on above: Performed By: #### H EPATIC, PHOS, MG, HS TROP, CBC, BMP #### [address] Bilirubin [Mass/Vol] 0.4 mg/dL Normal 0.3-1.2 [facility] Comment on above: Performed By: #### H EPATIC, PHOS, MG, HS TROP, CBC, BMP #### [facility] [address] Calcium [Mass/Vol] 8.3 mg/dL Normal 8.2-10.2 [facility] Comment on above: Performed By: #### H EPATIC, PHOS, MG, HS TROP, CBC, BMP #### [facility] [address] Chloride [Moles/Vol] 104 mmol/L Normal 95-114 [facility] Comment on above: Performed By: #### H EPATIC, PHOS, MG, HS TROP, CBC, BMP #### [address] CO2 [Moles/Vol] 23.6 mmol/L Normal 22.0-30.0 [facility] Comment on above: Performed By: #### H EPATIC, PHOS, MG, HS TROP, CBC, BMP #### [facility] [address] [place] [address] Creatinine [Mass/Vol] 0.69 mg/dL Normal 0.44-1.03 [facility] Comment on above: Performed By: #### H EPATIC, PHOS, MG, HS TROP, CBC, BMP #### [facility] [address] [place] [address] [place] Creatinine Clr Calc Pharmacy 112.39 [facility] Comment on above: Result Comment: PERF ORMED BY: [place] [address] PATHOLOGIST ASSISTANT FITNESS MANAGER DANIELLE ANDERSON M.D. Performed By: #### H EPATIC, PHOS, MG, HS TROP, CBC, BMP #### [facility] [address] [place] [address] Estimated GFR ( Prerna > 60 Normal [facility] Comment on above: Result Comment: GFR estimated reference range: According to KDOQI guidelines, <60 ml/min/1.73m2 is sufficient to diagnose a patient with chronic kidney disease. Performed By: #### H EPATIC, PHOS, MG, HS TROP, CBC, BMP #### [address] Estimated GFR (Non- Am > 60 Normal [facility] Comment on above: Performed By: #### H EPATIC, PHOS, MG, HS TROP, CBC, BMP #### [address] Globulin (S) [Mass/Vol] 3.2 g/dL Normal [facility] Comment on above: Performed By: #### H EPATIC, PHOS, MG, HS TROP, CBC, BMP #### [address] Glucose [Mass/Vol] 113 mg/dL High 70-100 [facility] Comment on above: Result Comment: [facility] Glucose Reference Range is dependent on time and content of last meal. Glucose of more than 200 mg/dL in a nonstressed, ambulatory subject supports the diagnosis of Diabetes Mellitus. ADA recommended reference range Performed By: #### H EPATIC, PHOS, MG, HS TROP, CBC, BMP #### [address] Potassium [Moles/Vol] 3.6 mmol/L Normal 3.5-5.1 [facility] Comment on above: Performed By: #### H EPATIC, PHOS, MG, HS TROP, CBC, BMP #### [address] Protein [Mass/Vol] 5.4 g/dL Low 6.1-7.9 [facility] Comment on above: Performed By: #### H EPATIC, PHOS, MG, HS TROP, CBC, BMP #### [address] Sodium [Moles/Vol] 138 mmol/L Normal 136-146 [facility] Comment on above: Performed By: #### H EPATIC, PHOS, MG, HS TROP, CBC, BMP #### [facility] [address] Urea nitrogen [Mass/Vol] 11 mg/dL Normal 12-12 [facility] Comment on above: Performed By: #### H EPATIC, PHOS, MG, HS TROP, CBC, BMP #### [facility] [address] [place] [address] D-Dimer High Sensitivityon 1 04-14-2020 D-Dimer High Sensitivity 706 ng/mL High 0-243 [facility] Comment on above: Result Comment: The reference [...] patients due to co-morbid conditions. PERFORMED BY: [place] [address] PATHOLOGIST ASSISTANT FITNESS MANAGER DANIELLE ANDERSON M.D. Performed By: #### H EPATIC, PHOS, MG, HS TROP, CBC, BMP #### [address] Complete Blood Count Auto Di ffon 02-11-2021 Basophils (Bld) [#/Vol] 0.0 10*3/uL Normal 0.0-0.2 [facility] Comment on above: Result Comment: PERF ORMED BY: [place] [address] PATHOLOGIST ASSISTANT FITNESS MANAGER DANIELLE ANDERSON M.D. Performed By: #### H EPATIC, PHOS, MG, HS TROP, CBC, BMP #### [address] Basophils/100 WBC (Bld) 0.1 % Normal . [facility] Comment on above: Performed By: #### H EPATIC, PHOS, MG, HS TROP, CBC, BMP #### [address] Eosinophils (Bld) [#/Vol] 0.0 10*3/uL Normal 0.0-0.45 [facility] Comment on above: Performed By: #### H EPATIC, PHOS, MG, HS TROP, CBC, BMP #### [address] Eosinophils/100 WBC (Bld) 0.0 % Normal . [facility] Comment on above: Performed By: #### H EPATIC, PHOS, MG, HS TROP, CBC, BMP #### [address] Erythrocyte distribution width (RBC) [Ratio] 13.2 % Normal 11.9-15.3 [facility] Comment on above: Performed By: #### H EPATIC, PHOS, MG, HS TROP, CBC, BMP #### [address] Hematocrit (Bld) [Volume fraction] 31.9 % Low 34.0-46.4 [facility] Comment on above: Performed By: #### H EPATIC, PHOS, MG, HS TROP, CBC, BMP #### [address] Hemoglobin (Bld) [Mass/Vol] 10.8 g/dL Low 11.8-15.4 [facility] Comment on above: Performed By: #### H EPATIC, PHOS, MG, HS TROP, CBC, BMP #### [address] Lymphocytes (Bld) [#/Vol] 0.7 10*3/uL Low 1.00-4.8 [facility] Comment on above: Performed By: #### H EPATIC, PHOS, MG, HS TROP, CBC, BMP #### [address] Lymphocytes/100 WBC (Bld) 17.2 % Normal . [facility] Comment on above: Performed By: #### H EPATIC, PHOS, MG, HS TROP, CBC, BMP #### [address] MCH (RBC) [Entitic mass] 32.1 pg Normal 24.7-34.3 [facility] Comment on above: Performed By: #### H EPATIC, PHOS, MG, HS TROP, CBC, BMP #### [address] MCV (RBC) [Entitic vol] 94.4 fL Normal 80-100 [facility] Comment on above: Performed By: #### H EPATIC, PHOS, MG, HS TROP, CBC, BMP #### [address] Mean Corpuscular HGB Conc 34.0 g/dL Normal 32.0-35.0 [facility] Comment on above: Performed By: #### H EPATIC, PHOS, MG, HS TROP, CBC, BMP #### [address] Monocytes (Bld) [#/Vol] 0.5 10*3/uL Normal 0.0-0.8 [facility] Comment on above: Performed By: #### H EPATIC, PHOS, MG, HS TROP, CBC, BMP #### [address] Monocytes/100 WBC (Bld) 11.8 % Normal . [facility] Comment on above: Performed By: #### H EPATIC, PHOS, MG, HS TROP, CBC, BMP #### [address] Neutrophils (Bld) [#/Vol] 2.9 10*3/uL Normal 1.8-7.7 [facility] Comment on above: Performed By: #### H EPATIC, PHOS, MG, HS TROP, CBC, BMP #### [address] Neutrophils/100 WBC (Bld) 70.9 % Normal . [facility] Comment on above: Performed By: #### H EPATIC, PHOS, MG, HS TROP, CBC, BMP #### [address] Nucleated RBC/100 WBC (Bld) [Ratio] 0.0 % Normal 0-0.5 [facility] Comment on above: Performed By: #### H EPATIC, PHOS, MG, HS TROP, CBC, BMP #### [address] Platelet mean volume (Bld) [Entitic vol] 7.9 fL Normal 6.3-10.7 [facility] Comment on above: Performed By: #### H EPATIC, PHOS, MG, HS TROP, CBC, BMP #### [address] Platelets (Bld) [#/Vol] 256 10*3/uL Normal 150-450 [facility] Comment on above: Performed By: #### H EPATIC, PHOS, MG, HS TROP, CBC, BMP #### [address] RBC (Bld) [#/Vol] 3.38 10*6/uL Low 3.60-5.00 [facility] Comment on above: Performed By: #### H EPATIC, PHOS, MG, HS TROP, CBC, BMP #### [address] WBC (Bld) [#/Vol] 4.1 10*3/uL Low 4.5-11.0 [facility] Comment on above: Performed By: #### H EPATIC, PHOS, MG, HS TROP, CBC, BMP #### [address] Comprehensive Metabolic Pane veronique 02-11-2021 Albumin [Mass/Vol] 2.1 g/dL Low 3.2-5.5 [facility] Comment on above: Performed By: #### H EPATIC, PHOS, MG, HS TROP, CBC, BMP #### [address] [place] [address] [place] Albumin/Globulin [Mass ratio] 0.6 {ratio} Normal [facility] Comment on above: Performed By: #### H EPATIC, PHOS, MG, HS TROP, CBC, BMP #### [facility] [address] ALP [Catalytic activity/Vol] 57 U/L Normal 32-92 [facility] Comment on above: Performed By: #### H EPATIC, PHOS, MG, HS TROP, CBC, BMP #### [address] ALT [Catalytic activity/Vol] 30 U/L Normal 10-60 [facility] Comment on above: Performed By: #### H EPATIC, PHOS, MG, HS TROP, CBC, BMP #### [address] AST [Catalytic activity/Vol] 38 U/L Normal 10-42 [facility] Comment on above: Performed By: #### H EPATIC, PHOS, MG, HS TROP, CBC, BMP #### [facility] [address] [place] [address] Bilirubin [Mass/Vol] 0.2 mg/dL Low 0.3-1.2 [facility] Comment on above: Performed By: #### H EPATIC, PHOS, MG, HS TROP, CBC, BMP #### [facility] [address] [place] [address] Calcium [Mass/Vol] 8.3 mg/dL Normal 8.2-10.2 [facility] Comment on above: Performed By: #### H EPATIC, PHOS, MG, HS TROP, CBC, BMP #### [facility] [address] [place] [address] [place] Chloride [Moles/Vol] 103 mmol/L Normal 95-114 [facility] Comment on above: Performed By: #### H EPATIC, PHOS, MG, HS TROP, CBC, BMP #### [facility] [address] [place] [address] [place] CO2 [Moles/Vol] 24.1 mmol/L Normal 22.0-30.0 [facility] Comment on above: Performed By: #### H EPATIC, PHOS, MG, HS TROP, CBC, BMP #### [address] Creatinine [Mass/Vol] 0.71 mg/dL Normal 0.44-1.03 [facility] Comment on above: Performed By: #### H EPATIC, PHOS, MG, HS TROP, CBC, BMP #### [address] Creatinine Clr Calc Pharmacy 110.27 [facility] Comment on above: Result Comment: PERF ORMED BY: [place] [address] PATHOLOGIST ASSISTANT FITNESS MANAGER DANIELLE ANDERSON M.D. Performed By: #### H EPATIC, PHOS, MG, HS TROP, CBC, BMP #### [address] Estimated GFR ( Prerna > 60 [facility] Comment on above: Result Comment: GFR estimated reference range: According to KDOQI guidelines, <60 ml/min/1.73m2 is sufficient to diagnose a patient with chronic kidney disease. Performed By: #### H EPATIC, PHOS, MG, HS TROP, CBC, BMP #### [address] Estimated GFR (Non- Am > 60 [facility] Comment on above: Performed By: #### H EPATIC, PHOS, MG, HS TROP, CBC, BMP #### [address] Globulin (S) [Mass/Vol] 3.4 g/dL [facility] Comment on above: Performed By: #### H EPATIC, PHOS, MG, HS TROP, CBC, BMP #### [address] Glucose [Mass/Vol] 106 mg/dL High 70-100 [facility] Comment on above: Result Comment: [place] Glucose Reference Range is dependent on time and content of last meal. Glucose of more than 200 mg/dL in a nonstressed, ambulatory subject supports the diagnosis of Diabetes Mellitus. ADA recommended reference range Performed By: #### H EPATIC, PHOS, MG, HS TROP, CBC, BMP #### [facility] [address] Potassium [Moles/Vol] 3.6 mmol/L Normal 3.5-5.1 [facility] Comment on above: Performed By: #### H EPATIC, PHOS, MG, HS TROP, CBC, BMP #### [facility] [address] Protein [Mass/Vol] 5.5 g/dL Low 6.1-7.9 [facility] Comment on above: Performed By: #### H EPATIC, PHOS, MG, HS TROP, CBC, BMP #### [address] Sodium [Moles/Vol] 138 mmol/L Normal 136-146 [facility] Comment on above: Performed By: #### H EPATIC, PHOS, MG, HS TROP, CBC, BMP #### [address] Urea nitrogen [Mass/Vol] 8 mg/dL Low 9-23 [facility] Comment on above: Performed By: #### H EPATIC, PHOS, MG, HS TROP, CBC, BMP #### [address] D-Dimer High Sensitivityon 1 04-13-2020 D-Dimer High Sensitivity 486 ng/mL High 0-243 [facility] Comment on above: Result Comment: The reference [...] patients due to co-morbid conditions. PERFORMED BY: [place] [address] PATHOLOGIST ASSISTANT FITNESS MANAGER DANIELLE ANDERSON M.D. Performed By: #### H EPATIC, PHOS, MG, HS TROP, CBC, BMP #### [address] Complete Blood Count Auto Di ffon 02-10-2021 Basophils (Bld) [#/Vol] 0.0 10*3/uL Normal 0.0-0.2 [facility] Comment on above: Result Comment: PERF ORMED BY: [place] [address] PATHOLOGIST ASSISTANT FITNESS MANAGER DANIELLE ANDERSON M.D. Performed By: #### H EPATIC, PHOS, MG, HS TROP, CBC, BMP #### [address] Basophils/100 WBC (Bld) 0.1 % Normal . [facility] Comment on above: Performed By: #### H EPATIC, PHOS, MG, HS TROP, CBC, BMP #### [address] Eosinophils (Bld) [#/Vol] 0.0 10*3/uL Normal 0.0-0.45 [facility] Comment on above: Performed By: #### H EPATIC, PHOS, MG, HS TROP, CBC, BMP #### [address] Eosinophils/100 WBC (Bld) 0.0 % Normal . [facility] Comment on above: Performed By: #### H EPATIC, PHOS, MG, HS TROP, CBC, BMP #### [address] Erythrocyte distribution width (RBC) [Ratio] 13.3 % Normal 11.9-15.3 [facility] Comment on above: Performed By: #### H EPATIC, PHOS, MG, HS TROP, CBC, BMP #### [address] Hematocrit (Bld) [Volume fraction] 31.7 % Low 34.0-46.4 [facility] Comment on above: Performed By: #### H EPATIC, PHOS, MG, HS TROP, CBC, BMP #### [address] Hemoglobin (Bld) [Mass/Vol] 10.7 g/dL Low 11.8-15.4 [facility] Comment on above: Performed By: #### H EPATIC, PHOS, MG, HS TROP, CBC, BMP #### [address] Lymphocytes (Bld) [#/Vol] 0.5 10*3/uL Low 1.00-4.8 [facility] Comment on above: Performed By: #### H EPATIC, PHOS, MG, HS TROP, CBC, BMP #### [address] Lymphocytes/100 WBC (Bld) 10.0 % Normal . [facility] Comment on above: Performed By: #### H EPATIC, PHOS, MG, HS TROP, CBC, BMP #### [address] MCH (RBC) [Entitic mass] 32.1 pg Normal 24.7-34.3 [facility] Comment on above: Performed By: #### H EPATIC, PHOS, MG, HS TROP, CBC, BMP #### [address] MCV (RBC) [Entitic vol] 95.0 fL Normal 80-100 [facility] Comment on above: Performed By: #### H EPATIC, PHOS, MG, HS TROP, CBC, BMP #### [address] Mean Corpuscular HGB Conc 33.8 g/dL Normal 32.0-35.0 [facility] Comment on above: Performed By: #### H EPATIC, PHOS, MG, HS TROP, CBC, BMP #### [facility] 1[address] [place] [address] [place] Monocytes (Bld) [#/Vol] 0.6 10*3/uL Normal 0.0-0.8 [facility] Comment on above: Performed By: #### H EPATIC, PHOS, MG, HS TROP, CBC, BMP #### [facility] [address] [place] [address] [place] Monocytes/100 WBC (Bld) 11.2 % Normal . [facility] Comment on above: Performed By: #### H EPATIC, PHOS, MG, HS TROP, CBC, BMP #### [address] Neutrophils (Bld) [#/Vol] 4.3 10*3/uL Normal 1.8-7.7 [facility] Comment on above: Performed By: #### H EPATIC, PHOS, MG, HS TROP, CBC, BMP #### [address] Neutrophils/100 WBC (Bld) 78.7 % Normal . [facility] Comment on above: Performed By: #### H EPATIC, PHOS, MG, HS TROP, CBC, BMP #### [place] [address] [place] Nucleated RBC/100 WBC (Bld) [Ratio] 0.1 % Normal 0-0.5 [facility] Comment on above: Performed By: #### H EPATIC, PHOS, MG, HS TROP, CBC, BMP #### [place] [address] [place] Platelet mean volume (Bld) [Entitic vol] 8.7 fL Normal 6.3-10.7 [facility] Comment on above: Performed By: #### H EPATIC, PHOS, MG, HS TROP, CBC, BMP #### [place] [address] [place] Platelets (Bld) [#/Vol] 220 10*3/uL Normal 150-450 [facility] Comment on above: Performed By: #### H EPATIC, PHOS, MG, HS TROP, CBC, BMP #### [facility] [address] RBC (Bld) [#/Vol] 3.34 10*6/uL Low 3.60-5.00 [facility] Comment on above: Performed By: #### H EPATIC, PHOS, MG, HS TROP, CBC, BMP #### [facility] [address] WBC (Bld) [#/Vol] 5.4 10*3/uL Normal 4.5-11.0 [facility] Comment on above: Performed By: #### H EPATIC, PHOS, MG, HS TROP, CBC, BMP #### [address] Comprehensive Metabolic Pane veronique 02-10-2021 Albumin [Mass/Vol] 2.1 g/dL Low 3.2-5.5 [facility] Comment on above: Performed By: #### H EPATIC, PHOS, MG, HS TROP, CBC, BMP #### [facility] [address] [place] [address] Albumin/Globulin [Mass ratio] 0.6 {ratio} Normal [facility] Comment on above: Performed By: #### H EPATIC, PHOS, MG, HS TROP, CBC, BMP #### [facility] [address] [place] [address] ALP [Catalytic activity/Vol] 53 U/L Normal 32-92 [facility] Comment on above: Performed By: #### H EPATIC, PHOS, MG, HS TROP, CBC, BMP #### [facility] [address] [place] [address] ALT [Catalytic activity/Vol] 29 U/L Normal 10-60 [facility] Comment on above: Performed By: #### H EPATIC, PHOS, MG, HS TROP, CBC, BMP #### [facility] [address] [place] [address] AST [Catalytic activity/Vol] 44 U/L High 10-42 [facility] Comment on above: Performed By: #### H EPATIC, PHOS, MG, HS TROP, CBC, BMP #### [facility] [address] Bilirubin [Mass/Vol] 0.2 mg/dL Low 0.3-1.2 [facility] Comment on above: Performed By: #### H EPATIC, PHOS, MG, HS TROP, CBC, BMP #### [facility] [address] Calcium [Mass/Vol] 8.0 mg/dL Low 8.2-10.2 [facility] Comment on above: Performed By: #### H EPATIC, PHOS, MG, HS TROP, CBC, BMP #### [facility] [address] Chloride [Moles/Vol] 101 mmol/L Normal 95-114 [facility] Comment on above: Performed By: #### H EPATIC, PHOS, MG, HS TROP, CBC, BMP #### [facility] [address] CO2 [Moles/Vol] 24.4 mmol/L Normal 22.0-30.0 [facility] Comment on above: Performed By: #### H EPATIC, PHOS, MG, HS TROP, CBC, BMP #### [facility] [address] Creatinine [Mass/Vol] 0.66 mg/dL Normal 0.44-1.03 [facility] Comment on above: Performed By: #### H EPATIC, PHOS, MG, HS TROP, CBC, BMP #### [facility] [address] Creatinine Clr Calc Pharmacy 119.04 Normal [facility] Comment on above: Result Comment: PERF ORMED BY: [place] [address] PATHOLOGIST ASSISTANT FITNESS MANAGER DANIELLE ANDERSON M.D. Performed By: #### H EPATIC, PHOS, MG, HS TROP, CBC, BMP #### [facility] [address] Estimated GFR ( Prerna > 60 Normal [facility] Comment on above: Result Comment: GFR estimated reference range: According to KDOQI guidelines, <60 ml/min/1.73m2 is sufficient to diagnose a patient with chronic kidney disease. Performed By: #### H EPATIC, PHOS, MG, HS TROP, CBC, BMP #### [facility] [address] Estimated GFR (Non- Am > 60 Normal [facility] Comment on above: Performed By: #### H EPATIC, PHOS, MG, HS TROP, CBC, BMP #### [address] Globulin (S) [Mass/Vol] 3.3 g/dL Normal [facility] Comment on above: Performed By: #### H EPATIC, PHOS, MG, HS TROP, CBC, BMP #### [address] Glucose [Mass/Vol] 110 mg/dL High 70-100 [facility] Comment on above: Result Comment: [facility] Glucose Reference Range is dependent on time and content of last meal. Glucose of more than 200 mg/dL in a nonstressed, ambulatory subject supports the diagnosis of Diabetes Mellitus. ADA recommended reference range Performed By: #### H EPATIC, PHOS, MG, HS TROP, CBC, BMP #### [address] Potassium [Moles/Vol] 3.7 mmol/L Normal 3.5-5.1 [facility] Comment on above: Performed By: #### H EPATIC, PHOS, MG, HS TROP, CBC, BMP #### [address] Protein [Mass/Vol] 5.4 g/dL Low 6.1-7.9 [facility] Comment on above: Performed By: #### H EPATIC, PHOS, MG, HS TROP, CBC, BMP #### [address] [address] [place] Sodium [Moles/Vol] 135 mmol/L Low 136-146 [facility] Comment on above: Performed By: #### H EPATIC, PHOS, MG, HS TROP, CBC, BMP #### [facility] [address] Urea nitrogen [Mass/Vol] 12 mg/dL Normal 9-23 [facility] Comment on above: Performed By: #### H EPATIC, PHOS, MG, HS TROP, CBC, BMP #### [facility] [address] [place] [address] D-Dimer High Sensitivityon 1 04-12-2020 D-Dimer High Sensitivity 423 ng/mL High 0-243 [facility] Comment on above: Result Comment: The reference [...] patients due to co-morbid conditions. PERFORMED BY: [place] [address] PATHOLOGIST ASSISTANT FITNESS MANAGER DANIELLE ANDERSON M.D. Performed By: #### H EPATIC, PHOS, MG, HS TROP, CBC, BMP #### [facility] [address] [place], [place] [id number] [facility] Complete Blood Count Auto Di ffon 02-09-2021 Basophils (Bld) [#/Vol] 0.0 10*3/uL Normal 0.0-0.2 [facility] Comment on above: Result Comment: PERF ORMED BY: [place] [address] PATHOLOGIST ASSISTANT FITNESS MANAGER DANIELLE ANDERSON M.D. Performed By: #### H EPATIC, PHOS, MG, HS TROP, CBC, BMP #### [address] Basophils/100 WBC (Bld) 0.1 % Normal . [facility] Comment on above: Performed By: #### H EPATIC, PHOS, MG, HS TROP, CBC, BMP #### [address] Eosinophils (Bld) [#/Vol] 0.0 10*3/uL Normal 0.0-0.45 [facility] Comment on above: Performed By: #### H EPATIC, PHOS, MG, HS TROP, CBC, BMP #### [address] Eosinophils/100 WBC (Bld) 0.0 % Normal . [facility] Comment on above: Performed By: #### H EPATIC, PHOS, MG, HS TROP, CBC, BMP #### [address] Erythrocyte distribution width (RBC) [Ratio] 13.1 % Normal 11.9-15.3 [facility] Comment on above: Performed By: #### H EPATIC, PHOS, MG, HS TROP, CBC, BMP #### [address] Hematocrit (Bld) [Volume fraction] 33.3 % Low 34.0-46.4 [facility] Comment on above: Performed By: #### H EPATIC, PHOS, MG, HS TROP, CBC, BMP #### [address] Hemoglobin (Bld) [Mass/Vol] 11.3 g/dL Low 11.8-15.4 [facility] Comment on above: Performed By: #### H EPATIC, PHOS, MG, HS TROP, CBC, BMP #### [address] Lymphocytes (Bld) [#/Vol] 0.5 10*3/uL Low 1.00-4.8 [facility] Comment on above: Performed By: #### H EPATIC, PHOS, MG, HS TROP, CBC, BMP #### [address] Lymphocytes/100 WBC (Bld) 8.1 % Normal . [facility] Comment on above: Performed By: #### H EPATIC, PHOS, MG, HS TROP, CBC, BMP #### [address] MCH (RBC) [Entitic mass] 32.1 pg Normal 24.7-34.3 [facility] Comment on above: Performed By: #### H EPATIC, PHOS, MG, HS TROP, CBC, BMP #### [address] MCV (RBC) [Entitic vol] 94.4 fL Normal 80-100 [facility] Comment on above: Performed By: #### H EPATIC, PHOS, MG, HS TROP, CBC, BMP #### [address] Mean Corpuscular HGB Conc 34.0 g/dL Normal 32.0-35.0 [facility] Comment on above: Performed By: #### H EPATIC, PHOS, MG, HS TROP, CBC, BMP #### [address] Monocytes (Bld) [#/Vol] 0.7 10*3/uL Normal 0.0-0.8 [facility] Comment on above: Performed By: #### H EPATIC, PHOS, MG, HS TROP, CBC, BMP #### [address] Monocytes/100 WBC (Bld) 11.2 % Normal . [facility] Comment on above: Performed By: #### H EPATIC, PHOS, MG, HS TROP, CBC, BMP #### [address] Neutrophils (Bld) [#/Vol] 5.0 10*3/uL Normal 1.8-7.7 [facility] Comment on above: Performed By: #### H EPATIC, PHOS, MG, HS TROP, CBC, BMP #### [address] Neutrophils/100 WBC (Bld) 80.6 % Normal . [facility] Comment on above: Performed By: #### H EPATIC, PHOS, MG, HS TROP, CBC, BMP #### [address] Nucleated RBC/100 WBC (Bld) [Ratio] 0.2 % Normal 0-0.5 [facility] Comment on above: Performed By: #### H EPATIC, PHOS, MG, HS TROP, CBC, BMP #### [address] Platelet mean volume (Bld) [Entitic vol] 8.9 fL Normal 6.3-10.7 [facility] Comment on above: Performed By: #### H EPATIC, PHOS, MG, HS TROP, CBC, BMP #### [address] Platelets (Bld) [#/Vol] 219 10*3/uL Normal 150-450 [facility] Comment on above: Performed By: #### H EPATIC, PHOS, MG, HS TROP, CBC, BMP #### [address] RBC (Bld) [#/Vol] 3.53 10*6/uL Low 3.60-5.00 [facility] Comment on above: Performed By: #### H EPATIC, PHOS, MG, HS TROP, CBC, BMP #### [address] WBC (Bld) [#/Vol] 6.3 10*3/uL Normal 4.5-11.0 [facility] Comment on above: Performed By: #### H EPATIC, PHOS, MG, HS TROP, CBC, BMP #### [address] Comprehensive Metabolic Pane veronique 02-09-2021 Albumin [Mass/Vol] 2.1 g/dL Low 3.2-5.5 [facility] Comment on above: Performed By: #### H EPATIC, PHOS, MG, HS TROP, CBC, BMP #### [facility] [address] Albumin/Globulin [Mass ratio] 0.6 {ratio} Normal [facility] Comment on above: Performed By: #### H EPATIC, PHOS, MG, HS TROP, CBC, BMP #### [address] ALP [Catalytic activity/Vol] 58 U/L Normal 32-92 [facility] Comment on above: Performed By: #### H EPATIC, PHOS, MG, HS TROP, CBC, BMP #### [address] ALT [Catalytic activity/Vol] 26 U/L Normal 10-60 [facility] Comment on above: Performed By: #### H EPATIC, PHOS, MG, HS TROP, CBC, BMP #### [address] AST [Catalytic activity/Vol] 33 U/L Normal 10-42 [facility] Comment on above: Performed By: #### H EPATIC, PHOS, MG, HS TROP, CBC, BMP #### [facility] [address] [place] [address] Bilirubin [Mass/Vol] 0.5 mg/dL Normal 0.3-1.2 [facility] Comment on above: Performed By: #### H EPATIC, PHOS, MG, HS TROP, CBC, BMP #### [facility] [address] [place] [address] Calcium [Mass/Vol] 8.1 mg/dL Low 8.2-10.2 [facility] Comment on above: Performed By: #### H EPATIC, PHOS, MG, HS TROP, CBC, BMP #### [facility] [address] [place] [address] [place] Chloride [Moles/Vol] 99 mmol/L Normal 95-114 [facility] Comment on above: Performed By: #### H EPATIC, PHOS, MG, HS TROP, CBC, BMP #### [address] CO2 [Moles/Vol] 23.4 mmol/L Normal 22.0-30.0 [facility] Comment on above: Performed By: #### H EPATIC, PHOS, MG, HS TROP, CBC, BMP #### [address] Creatinine [Mass/Vol] 0.81 mg/dL Normal 0.44-1.03 [facility] Comment on above: Performed By: #### H EPATIC, PHOS, MG, HS TROP, CBC, BMP #### [address] Creatinine Clr Calc Pharmacy 96.75 [facility] Comment on above: Result Comment: PERF ORMED BY: [place] [address] PATHOLOGIST ASSISTANT FITNESS MANAGER DANIELLE ANDERSON M.D. Performed By: #### H EPATIC, PHOS, MG, HS TROP, CBC, BMP #### [address] Estimated GFR ( Prerna > 60 [facility] Comment on above: Result Comment: GFR estimated reference range: According to KDOQI guidelines, <60 ml/min/1.73m2 is sufficient to diagnose a patient with chronic kidney disease. Performed By: #### H EPATIC, PHOS, MG, HS TROP, CBC, BMP #### [address] Estimated GFR (Non- Am > 60 [facility] Comment on above: Performed By: #### H EPATIC, PHOS, MG, HS TROP, CBC, BMP #### [address] Globulin (S) [Mass/Vol] 3.5 g/dL [facility] Comment on above: Performed By: #### H EPATIC, PHOS, MG, HS TROP, CBC, BMP #### [facility] [address] Glucose [Mass/Vol] 124 mg/dL High 70-100 [facility] Comment on above: Result Comment: [facility] Glucose Reference Range is dependent on time and content of last meal. Glucose of more than 200 mg/dL in a nonstressed, ambulatory subject supports the diagnosis of Diabetes Mellitus. ADA recommended reference range Performed By: #### H EPATIC, PHOS, MG, HS TROP, CBC, BMP #### [facility] [address] Potassium [Moles/Vol] 3.5 mmol/L Normal 3.5-5.1 [facility] Comment on above: Performed By: #### H EPATIC, PHOS, MG, HS TROP, CBC, BMP #### [address] Protein [Mass/Vol] 5.6 g/dL Low 6.1-7.9 [facility] Comment on above: Performed By: #### H EPATIC, PHOS, MG, HS TROP, CBC, BMP #### [address] Sodium [Moles/Vol] 134 mmol/L Low 136-146 [facility] Comment on above: Performed By: #### H EPATIC, PHOS, MG, HS TROP, CBC, BMP #### [address] Urea nitrogen [Mass/Vol] 13 mg/dL Normal 9-23 [facility] Comment on above: Performed By: #### H EPATIC, PHOS, MG, HS TROP, CBC, BMP #### [address] D-Dimer High Sensitivityon 1 04-11-2020 D-Dimer High Sensitivity 568 ng/mL High 0-243 [facility] Comment on above: Result Comment: The reference [...] patients due to co-morbid conditions. PERFORMED BY: [place] [address] PATHOLOGIST ASSISTANT FITNESS MANAGER DANIELLE ANDERSON M.D. Performed By: #### H EPATIC, PHOS, MG, HS TROP, CBC, BMP #### [address] Complete Blood Count Auto Di ffon 02-08-2021 Basophils (Bld) [#/Vol] 0.0 10*3/uL Normal 0.0-0.2 [facility] Comment on above: Result Comment: PERF ORMED BY: [place] [address] PATHOLOGIST ASSISTANT FITNESS MANAGER DANIELLE ANDERSON M.D. Performed By: #### H EPATIC, PHOS, MG, HS TROP, CBC, BMP #### [address] Basophils/100 WBC (Bld) 0.1 % Normal . [facility] Comment on above: Performed By: #### H EPATIC, PHOS, MG, HS TROP, CBC, BMP #### [address] Eosinophils (Bld) [#/Vol] 0.0 10*3/uL Normal 0.0-0.45 [facility] Comment on above: Performed By: #### H EPATIC, PHOS, MG, HS TROP, CBC, BMP #### [address] Eosinophils/100 WBC (Bld) 0.0 % Normal . [facility] Comment on above: Performed By: #### H EPATIC, PHOS, MG, HS TROP, CBC, BMP #### [facility] [address] Erythrocyte distribution width (RBC) [Ratio] 13.2 % Normal 11.9-15.3 [facility] Comment on above: Performed By: #### H EPATIC, PHOS, MG, HS TROP, CBC, BMP #### [address] Hematocrit (Bld) [Volume fraction] 34.4 % Normal 34.0-46.4 [facility] Comment on above: Performed By: #### H EPATIC, PHOS, MG, HS TROP, CBC, BMP #### [address] Hemoglobin (Bld) [Mass/Vol] 11.7 g/dL Low 11.8-15.4 [facility] Comment on above: Performed By: #### H EPATIC, PHOS, MG, HS TROP, CBC, BMP #### [address] Lymphocytes (Bld) [#/Vol] 0.5 10*3/uL Low 1.00-4.8 [facility] Comment on above: Performed By: #### H EPATIC, PHOS, MG, HS TROP, CBC, BMP #### [address] Lymphocytes/100 WBC (Bld) 8.5 % Normal . [facility] Comment on above: Performed By: #### H EPATIC, PHOS, MG, HS TROP, CBC, BMP #### [address] MCH (RBC) [Entitic mass] 32.3 pg Normal 24.7-34.3 [facility] Comment on above: Performed By: #### H EPATIC, PHOS, MG, HS TROP, CBC, BMP #### [address] MCV (RBC) [Entitic vol] 95.2 fL Normal 80-100 [facility] Comment on above: Performed By: #### H EPATIC, PHOS, MG, HS TROP, CBC, BMP #### [address] Mean Corpuscular HGB Conc 33.9 g/dL Normal 32.0-35.0 [facility] Comment on above: Performed By: #### H EPATIC, PHOS, MG, HS TROP, CBC, BMP #### [address] Monocytes (Bld) [#/Vol] 0.6 10*3/uL Normal 0.0-0.8 [facility] Comment on above: Performed By: #### H EPATIC, PHOS, MG, HS TROP, CBC, BMP #### [address] Monocytes/100 WBC (Bld) 10.2 % Normal . [facility] Comment on above: Performed By: #### H EPATIC, PHOS, MG, HS TROP, CBC, BMP #### [address] Neutrophils (Bld) [#/Vol] 5.0 10*3/uL Normal 1.8-7.7 [facility] Comment on above: Performed By: #### H EPATIC, PHOS, MG, HS TROP, CBC, BMP #### [address] Neutrophils/100 WBC (Bld) 81.2 % Normal . [facility] Comment on above: Performed By: #### H EPATIC, PHOS, MG, HS TROP, CBC, BMP #### [address] Nucleated RBC/100 WBC (Bld) [Ratio] 0.1 % Normal 0-0.5 [facility] Comment on above: Performed By: #### H EPATIC, PHOS, MG, HS TROP, CBC, BMP #### [address] Platelet mean volume (Bld) [Entitic vol] 8.9 fL Normal 6.3-10.7 [facility] Comment on above: Performed By: #### H EPATIC, PHOS, MG, HS TROP, CBC, BMP #### [facility] [address] Platelets (Bld) [#/Vol] 198 10*3/uL Normal 150-450 [facility] Comment on above: Performed By: #### H EPATIC, PHOS, MG, HS TROP, CBC, BMP #### [facility] [address] RBC (Bld) [#/Vol] 3.61 10*6/uL Normal 3.60-5.00 [facility] Comment on above: Performed By: #### H EPATIC, PHOS, MG, HS TROP, CBC, BMP #### [address] WBC (Bld) [#/Vol] 6.2 10*3/uL Normal 4.5-11.0 [facility] Comment on above: Performed By: #### H EPATIC, PHOS, MG, HS TROP, CBC, BMP #### [address] Comprehensive Metabolic Pane veronique 02-08-2021 Albumin [Mass/Vol] 2.3 g/dL Low 3.2-5.5 [facility] Comment on above: Performed By: #### H EPATIC, PHOS, MG, HS TROP, CBC, BMP #### [address] Albumin/Globulin [Mass ratio] 0.7 {ratio} Normal [facility] Comment on above: Performed By: #### H EPATIC, PHOS, MG, HS TROP, CBC, BMP #### [facility] [address] [place] [address] ALP [Catalytic activity/Vol] 64 U/L Normal 32-92 [facility] Comment on above: Performed By: #### H EPATIC, PHOS, MG, HS TROP, CBC, BMP #### [address] ALT [Catalytic activity/Vol] 27 U/L Normal 10-60 [facility] Comment on above: Performed By: #### H EPATIC, PHOS, MG, HS TROP, CBC, BMP #### [facility] [address] AST [Catalytic activity/Vol] 29 U/L Normal 10-42 [facility] Comment on above: Performed By: #### H EPATIC, PHOS, MG, HS TROP, CBC, BMP #### [facility] [address] [place] [address] Bilirubin [Mass/Vol] 0.6 mg/dL Normal 0.3-1.2 [facility] Comment on above: Performed By: #### H EPATIC, PHOS, MG, HS TROP, CBC, BMP #### [address] Calcium [Mass/Vol] 8.3 mg/dL Normal 8.2-10.2 [facility] Comment on above: Performed By: #### H EPATIC, PHOS, MG, HS TROP, CBC, BMP #### [facility] [address] [place] [address] Chloride [Moles/Vol] 103 mmol/L Normal 95-114 [facility] Comment on above: Performed By: #### H EPATIC, PHOS, MG, HS TROP, CBC, BMP #### [facility] [address] [place] [address] CO2 [Moles/Vol] 26.8 mmol/L Normal 22.0-30.0 [facility] Comment on above: Performed By: #### H EPATIC, PHOS, MG, HS TROP, CBC, BMP #### [facility] [address] [place] [address] Creatinine [Mass/Vol] 0.95 mg/dL Normal 0.44-1.03 [facility] Comment on above: Performed By: #### H EPATIC, PHOS, MG, HS TROP, CBC, BMP #### [facility] [address] [place] [address] Creatinine Clr Calc Pharmacy 81.67 Normal [facility] Comment on above: Result Comment: PERF ORMED BY: [place] [address] PATHOLOGIST ASSISTANT FITNESS MANAGER DANIELLE ANDERSON M.D. Performed By: #### H EPATIC, PHOS, MG, HS TROP, CBC, BMP #### [address] Estimated GFR ( Prerna > 60 Normal [facility] Comment on above: Result Comment: GFR estimated reference range: According to KDOQI guidelines, <60 ml/min/1.73m2 is sufficient to diagnose a patient with chronic kidney disease. Performed By: #### H EPATIC, PHOS, MG, HS TROP, CBC, BMP #### [address] Estimated GFR (Non- Am > 60 Normal [facility] Comment on above: Performed By: #### H EPATIC, PHOS, MG, HS TROP, CBC, BMP #### [address] Globulin (S) [Mass/Vol] 3.5 g/dL Normal [facility] Comment on above: Performed By: #### H EPATIC, PHOS, MG, HS TROP, CBC, BMP #### [address] Glucose [Mass/Vol] 133 mg/dL High 70-100 [facility] Comment on above: Result Comment: [place] Glucose Reference Range is dependent on time and content of last meal. Glucose of more than 200 mg/dL in a nonstressed, ambulatory subject supports the diagnosis of Diabetes Mellitus. ADA recommended reference range Performed By: #### H EPATIC, PHOS, MG, HS TROP, CBC, BMP #### [address] Potassium [Moles/Vol] 4.1 mmol/L Normal 3.5-5.1 [facility] Comment on above: Performed By: #### H EPATIC, PHOS, MG, HS TROP, CBC, BMP #### [address] Protein [Mass/Vol] 5.8 g/dL Low 6.1-7.9 [facility] Comment on above: Performed By: #### H EPATIC, PHOS, MG, HS TROP, CBC, BMP #### [address] Sodium [Moles/Vol] 138 mmol/L Normal 136-146 [facility] Comment on above: Performed By: #### H EPATIC, PHOS, MG, HS TROP, CBC, BMP #### [address] Urea nitrogen [Mass/Vol] 17 mg/dL Normal 9-23 [facility] Comment on above: Performed By: #### H EPATIC, PHOS, MG, HS TROP, CBC, BMP #### [address] D-Dimer High Sensitivityon 1 04-10-2020 D-Dimer High Sensitivity 775 ng/mL High 0-243 [facility] Comment on above: Result Comment: The reference [...] patients due to co-morbid conditions. PERFORMED BY: [place] [address] PATHOLOGIST ASSISTANT FITNESS MANAGER DANIELLE ANDERSON M.D. Performed By: #### H EPATIC, PHOS, MG, HS TROP, CBC, BMP #### [address] US venous duplex LE BIon US venous duplex LE BI [facility] [place] [address] [place] [address] Ultrasound Report Signed Patient: Elizabeth Sánchez MR#: [id number] : 1965 Acct:[id number] Age/Sex: 55 / F ADM Date: 02/06/21 Loc: Room: [address] [place] [address] Type: ADM IN Attending Dr: Randa Feng [...] Ramses Osuna M.D.02/08/2021 11:33 AM Dictation Location: [place] [address] Tech: Lorna Menjivar Transcribed By: TAD 02/08/21 1133 Dictated By: Ramses Osuna MD 02/08/21 1131 Signed By: 02/08/21 1133 Normal [facility] C-Reactive Proteinon 021 C-Reactive Protein 24.5 mg/dL High 0.0-1.0 [facility] Comment on above: Performed By: #### H EPATIC, PHOS, MG, HS TROP, CBC, BMP #### [address] Complete Blood Count Auto Di ffon 02-07-2021 Basophils (Bld) [#/Vol] 0.0 10*3/uL Normal 0.0-0.2 [facility] Comment on above: Result Comment: PERF ORMED BY: [place] [address] PATHOLOGIST ASSISTANT FITNESS MANAGER DANIELLE ANDERSON M.D. Performed By: #### H EPATIC, PHOS, MG, HS TROP, CBC, BMP #### [address] Basophils/100 WBC (Bld) 0.1 % Normal . [facility] Comment on above: Performed By: #### H EPATIC, PHOS, MG, HS TROP, CBC, BMP #### [address] Eosinophils (Bld) [#/Vol] 0.0 10*3/uL Normal 0.0-0.45 [facility] Comment on above: Performed By: #### H EPATIC, PHOS, MG, HS TROP, CBC, BMP #### [address] Eosinophils/100 WBC (Bld) 0.0 % Normal . [facility] Comment on above: Performed By: #### H EPATIC, PHOS, MG, HS TROP, CBC, BMP #### [address] Erythrocyte distribution width (RBC) [Ratio] 13.3 % Normal 11.9-15.3 [facility] Comment on above: Performed By: #### H EPATIC, PHOS, MG, HS TROP, CBC, BMP #### [address] Hematocrit (Bld) [Volume fraction] 33.7 % Low 34.0-46.4 [facility] Comment on above: Performed By: #### H EPATIC, PHOS, MG, HS TROP, CBC, BMP #### [address] Hemoglobin (Bld) [Mass/Vol] 11.6 g/dL Low 11.8-15.4 [facility] Comment on above: Performed By: #### H EPATIC, PHOS, MG, HS TROP, CBC, BMP #### [address] Lymphocytes (Bld) [#/Vol] 0.7 10*3/uL Low 1.00-4.8 [facility] Comment on above: Performed By: #### H EPATIC, PHOS, MG, HS TROP, CBC, BMP #### [address] Lymphocytes/100 WBC (Bld) 11.3 % Normal . [facility] Comment on above: Performed By: #### H EPATIC, PHOS, MG, HS TROP, CBC, BMP #### [address] MCH (RBC) [Entitic mass] 32.4 pg Normal 24.7-34.3 [facility] Comment on above: Performed By: #### H EPATIC, PHOS, MG, HS TROP, CBC, BMP #### [address] MCV (RBC) [Entitic vol] 94.2 fL Normal 80-100 [facility] Comment on above: Performed By: #### H EPATIC, PHOS, MG, HS TROP, CBC, BMP #### [address] Mean Corpuscular HGB Conc 34.5 g/dL Normal 32.0-35.0 [facility] Comment on above: Performed By: #### H EPATIC, PHOS, MG, HS TROP, CBC, BMP #### [place] [address] [place] Monocytes (Bld) [#/Vol] 0.6 10*3/uL Normal 0.0-0.8 [facility] Comment on above: Performed By: #### H EPATIC, PHOS, MG, HS TROP, CBC, BMP #### [place] [address] [place] Monocytes/100 WBC (Bld) 9.7 % Normal . [facility] Comment on above: Performed By: #### H EPATIC, PHOS, MG, HS TROP, CBC, BMP #### [address] Neutrophils (Bld) [#/Vol] 4.9 10*3/uL Normal 1.8-7.7 [facility] Comment on above: Performed By: #### H EPATIC, PHOS, MG, HS TROP, CBC, BMP #### [address] Neutrophils/100 WBC (Bld) 78.9 % Normal . [facility] Comment on above: Performed By: #### H EPATIC, PHOS, MG, HS TROP, CBC, BMP #### [address] Nucleated RBC/100 WBC (Bld) [Ratio] 0.0 % Normal 0-0.5 [facility] Comment on above: Performed By: #### H EPATIC, PHOS, MG, HS TROP, CBC, BMP #### [address] Platelet mean volume (Bld) [Entitic vol] 8.5 fL Normal 6.3-10.7 [facility] Comment on above: Performed By: #### H EPATIC, PHOS, MG, HS TROP, CBC, BMP #### [address] Platelets (Bld) [#/Vol] 179 10*3/uL Normal 150-450 [facility] Comment on above: Performed By: #### H EPATIC, PHOS, MG, HS TROP, CBC, BMP #### [address] RBC (Bld) [#/Vol] 3.58 10*6/uL Low 3.60-5.00 [facility] Comment on above: Performed By: #### H EPATIC, PHOS, MG, HS TROP, CBC, BMP #### [address] WBC (Bld) [#/Vol] 6.2 10*3/uL Normal 4.5-11.0 [facility] Comment on above: Performed By: #### H EPATIC, PHOS, MG, HS TROP, CBC, BMP #### [facility] [address] [place] [address] Comprehensive Metabolic Pane veronique 02-07-2021 Albumin [Mass/Vol] 2.4 g/dL Low 3.2-5.5 [facility] Comment on above: Performed By: #### H EPATIC, PHOS, MG, HS TROP, CBC, BMP #### [facility] [address] [place] [address] Albumin/Globulin [Mass ratio] 0.7 {ratio} Normal [facility] Comment on above: Performed By: #### H EPATIC, PHOS, MG, HS TROP, CBC, BMP #### [address] ALP [Catalytic activity/Vol] 63 U/L Normal 32-92 [facility] Comment on above: Performed By: #### H EPATIC, PHOS, MG, HS TROP, CBC, BMP #### [address] ALT [Catalytic activity/Vol] 32 U/L Normal 10-60 [facility] Comment on above: Performed By: #### H EPATIC, PHOS, MG, HS TROP, CBC, BMP #### [facility] [address] [place] [address] AST [Catalytic activity/Vol] 34 U/L Normal 10-42 [facility] Comment on above: Performed By: #### H EPATIC, PHOS, MG, HS TROP, CBC, BMP #### [facility] [address] [place] [address] Bilirubin [Mass/Vol] 0.6 mg/dL Normal 0.3-1.2 [facility] Comment on above: Performed By: #### H EPATIC, PHOS, MG, HS TROP, CBC, BMP #### [address] [place] [address] [place] Calcium [Mass/Vol] 8.0 mg/dL Low 8.2-10.2 [facility] Comment on above: Performed By: #### H EPATIC, PHOS, MG, HS TROP, CBC, BMP #### [address] Chloride [Moles/Vol] 103 mmol/L Normal 95-114 [facility] Comment on above: Performed By: #### H EPATIC, PHOS, MG, HS TROP, CBC, BMP #### [address] CO2 [Moles/Vol] 24.0 mmol/L Normal 22.0-30.0 [facility] Comment on above: Performed By: #### H EPATIC, PHOS, MG, HS TROP, CBC, BMP #### [address] Creatinine [Mass/Vol] 0.96 mg/dL Normal 0.44-1.03 [facility] Comment on above: Performed By: #### H EPATIC, PHOS, MG, HS TROP, CBC, BMP #### [facility] [address] [place] [address] Creatinine Clr Calc Pharmacy 81.55 [facility] Comment on above: Performed By: #### H EPATIC, PHOS, MG, HS TROP, CBC, BMP #### [facility] [address] [place] [address] Estimated GFR ( Prerna > 60 [facility] Comment on above: Result Comment: GFR estimated reference range: According to KDOQI guidelines, <60 ml/min/1.73m2 is sufficient to diagnose a patient with chronic kidney disease. Performed By: #### H EPATIC, PHOS, MG, HS TROP, CBC, BMP #### [address] Estimated GFR (Non- Am 60 [facility] Comment on above: Performed By: #### H EPATIC, PHOS, MG, HS TROP, CBC, BMP #### [address] [place] [address] [place] Globulin (S) [Mass/Vol] 3.5 g/dL Normal [facility] Comment on above: Performed By: #### H EPATIC, PHOS, MG, HS TROP, CBC, BMP #### [address] Glucose [Mass/Vol] 116 mg/dL High 70-100 [facility] Comment on above: Result Comment: [facility] Glucose Reference Range is dependent on time and content of last meal. Glucose of more than 200 mg/dL in a nonstressed, ambulatory subject supports the diagnosis of Diabetes Mellitus. ADA recommended reference range Performed By: #### H EPATIC, PHOS, MG, HS TROP, CBC, BMP #### [address] Potassium [Moles/Vol] 3.9 mmol/L Normal 3.5-5.1 [facility] Comment on above: Performed By: #### H EPATIC, PHOS, MG, HS TROP, CBC, BMP #### [address] Protein [Mass/Vol] 5.9 g/dL Low 6.1-7.9 [facility] Comment on above: Performed By: #### H EPATIC, PHOS, MG, HS TROP, CBC, BMP #### [address] Sodium [Moles/Vol] 137 mmol/L Normal 136-146 [facility] Comment on above: Performed By: #### H EPATIC, PHOS, MG, HS TROP, CBC, BMP #### [facility] [address] [place] [address] [place] Urea nitrogen [Mass/Vol] 21 mg/dL Normal 9-23 [facility] Comment on above: Performed By: #### H EPATIC, PHOS, MG, HS TROP, CBC, BMP #### [address] D-Dimer High Sensitivityon 04-09-2020 D-Dimer High Sensitivity 3224 ng/mL High 0-243 [facility] Comment on above: Result Comment: The reference [...] patients due to co-morbid conditions. PERFORMED BY: [place] [address] PATHOLOGIST ASSISTANT FITNESS MANAGER DANIELLE ANDERSON M.D. Performed By: #### H EPATIC, PHOS, MG, HS TROP, CBC, BMP #### [address] ECG 12 lead ECGon 02-07-2021 ECG 12 lead ECG [facility] [place] [address] [place] [address] Electrocardiograph Report Signed Patient: Elizabeth Sánchez MR#: [id number] : 1965 Acct:[id number] Age/Sex: 55 / F ADM Date: 02/06/21 Loc: Room: [address] [place] [address] Type: ADM IN Attending Dr: Randa Feng [...] Signed By Andre Mendoza DO 02/08 Normal [facility] LDH Lactate Dehydrogenaseon 02-07-2021 LDH Lactate Dehydrogenase 316 U/L High 45-190 [facility] Comment on above: Performed By: #### H EPATIC, PHOS, MG, HS TROP, CBC, BMP #### [facility] [address] Prealbuminon 02-07-2021 Prealbumin [Mass/Vol] 5.1 mg/dL Low 18.0-38.0 [facility] Comment on above: Performed By: #### H EPATIC, PHOS, MG, HS TROP, CBC, BMP #### [facility] [address] T SPOT TB TESTon 02-07-2021 T SPOT TB TEST Normal [facility] Comment on above: Result Comment: See report. Scanned copy available in EMR. PERFORMED BY: [place] [address] PATHOLOGIST ASSISTANT FITNESS MANAGER DANIELLE ANDERSON M.D. Performed By: #### H EPATIC, PHOS, MG, HS TROP, CBC, BMP #### [facility] [address] [place] [address] Troponin I High Sensitivityo n 02-07-2021 Troponin I High Sensitivity 15 pg/mL Normal 0-15 [facility] Comment on above: Result Comment: PERF ORMED BY: [place] [address] PATHOLOGIST ASSISTANT FITNESS MANAGER DANIELLE ANDERSON M.D. Performed By: #### H EPATIC, PHOS, MG, HS TROP, CBC, BMP #### [facility] [address] [place] [address] Vit. B12/Folate Profileon Cobalamin (Vitamin B12) [Mass/Vol] 171 pg/mL Low 180-914 [facility] Comment on above: Performed By: #### H EPATIC, PHOS, MG, HS TROP, CBC, BMP #### [facility] [address] [place] [address] Folate 12.0 ng/mL Normal >5.9 [facility] Comment on above: Result Comment: Lizeth te reference range: >5.9 ng/ml The WHO technical consultation on folate and vitamin b12 deficiencies has determined that folate concentrations less than 4 ng/ml are considered deficient. Performed By: #### H EPATIC, PHOS, MG, HS TROP, CBC, BMP #### [facility] [address] [place] [id number] [facility] Vitamin B1 (Thiamine) Bloodo n 02-07-2021 Vitamin B1 (Thiamine) Blood 87.5 Normal 66.5-200.0 [facility] [place] Comment on above: Result Comment: This test was developed and its performance characteristics determined by [facility] It has not been cleared or approved by the Food and Drug Administration. Performed at: [address] [id number] Prosthodontist/Educator: Rebecca Griffin MD, Phone: [phone] PERFORMED BY: [place] [address] PATHOLOGIST ASSISTANT FITNESS MANAGER DANIELLE ANDERSON M.D. Performed By: #### H EPATIC, PHOS, MG, HS TROP, CBC, BMP #### [place] [id number] [facility] Vitamin D 25 Hydroxy Totalon 02-07-2021 Vitamin D 25 Hydroxy Total 39.2 ng/mL Normal 30-100 [facility] [place] Comment on above: Result Comment: [place] MIN D STATUS 25(OH)VITAMIN D RANGE (ng/mL) Deficient <20 Insufficient 20 to <30 Sufficient 30 to 100 Reference: Toby MF,Eamon NC, Neyda GREEN, et al. Evaluation,treatment, and prevention of vitamin D deficiency; an Endocrine Society clinical practice guideline. JCEM. 2010; 96(7):1911-30. PERFORMED BY: [place] [address] PATHOLOGIST ASSISTANT FITNESS MANAGER DANIELLE ANDERSON M.D. Performed By: #### H EPATIC, PHOS, MG, HS TROP, CBC, BMP #### [place] [id number] [facility] Ammoniaon 02-06-2021 Ammonia (P) [Moles/Vol] 17 umol/L Normal 11-35 [facility] [place] Comment on above: Result Comment: PERF ORMED BY: [place] [address] PATHOLOGIST ASSISTANT FITNESS MANAGER DANIELLE ANDERSON M.D. Performed By: #### B BUS OPERATOR, AMM #### [address] Arterial Blood Gason 021 ABG Base Excess 0.8 mmol/L Normal -3.0-3.0 [facility] [place] Comment on above: Performed By: #### A BG #### Point of Care testing , ABG Frac Inspired O2 56 % Normal [facility] Comment on above: Performed By: #### A BG #### Point of Care testing , ABG Oxygen Content 7.6 mmol/L Normal 6.6-9.7 [facility] Comment on above: Performed By: #### A BG #### Point of Care testing , ABG Oxygen Saturation 94.5 % Low 95.0-100.0 [facility] [place] Comment on above: Performed By: #### A BG #### Point of Care testing , ABG PCO2 34.3 mm[Hg] Low 35.0-45.0 [facility] [place] Comment on above: Performed By: #### A BG #### Point of Care testing , ABG PH 7.47 High 7.35-7.45 [facility] [place] Comment on above: Performed By: #### A BG #### Point of Care testing , ABG PO2 69.5 mm[Hg] Low 80.0-100.0 [facility] [place] Comment on above: Performed By: #### A BG #### Point of Care testing , CO2 [Moles/Vol] 25.2 mmol/L Normal 23.0-27.0 [facility] Comment on above: Performed By: #### A BG #### Point of Care testing , HCO3 (Bld) [Moles/Vol] 24.1 mmol/L Normal 23.0-29.0 [facility] [place] Comment on above: Performed By: #### A BG #### Point of Care testing , Respiratory Critical Normal [facility] Comment on above: Result Comment: Crit ical Value called on: 02/06/2021 at 09:25 PERFORMED BY: [place] [address] PATHOLOGIST ASSISTANT FITNESS MANAGER DANIELLE ANDERSON M.D. Performed By: #### A BG #### Point of Care testing , VBG Draw Site Right Radial Normal [facility] [place] Comment on above: Performed By: #### A BG #### Point of Care testing , B-Type Natriuretic Peptideon 02-06-2021 Natriuretic peptide B (Bld) [Mass/Vol] 42.0 pg/mL Normal 5-100 [facility] [place] Comment on above: Result Comment: PERF ORMED BY: [place] [address] PATHOLOGIST ASSISTANT FITNESS MANAGER DANIELLE ANDERSON M.D. Performed By: #### B BUS OPERATOR, AMM #### [facility] [address] Basic Metabolic Panelon 11- Calcium [Mass/Vol] 8.3 mg/dL Normal 8.2-10.2 [facility] Comment on above: Performed By: #### H EPATIC, PHOS, MG, HS TROP, CBC, BMP #### [facility] [address] [place] [address] [place] Chloride [Moles/Vol] 100 mmol/L Normal 95-114 [facility] Comment on above: Performed By: #### H EPATIC, PHOS, MG, HS TROP, CBC, BMP #### [facility] [address] [place] [address] [place] CO2 [Moles/Vol] 26.5 mmol/L Normal 22.0-30.0 [facility] Comment on above: Performed By: #### H EPATIC, PHOS, MG, HS TROP, CBC, BMP #### [facility] [address] [place] [address] [place] Creatinine [Mass/Vol] 1.17 mg/dL High 0.44-1.03 [facility] [place] Comment on above: Performed By: #### H EPATIC, PHOS, MG, HS TROP, CBC, BMP #### [facility] [address] Creatinine Clr Calc Pharmacy 65.51 [facility] Comment on above: Performed By: #### H EPATIC, PHOS, MG, HS TROP, CBC, BMP #### [facility] [address] Estimated GFR ( Prerna 58 [facility] Comment on above: Result Comment: GFR estimated reference range: According to KDOQI guidelines, <60 ml/min/1.73m2 is sufficient to diagnose a patient with chronic kidney disease. Performed By: #### H EPATIC, PHOS, MG, HS TROP, CBC, BMP #### [facility] [address] Estimated GFR (Non- Am 48 [facility] Comment on above: Performed By: #### H EPATIC, PHOS, MG, HS TROP, CBC, BMP #### [facility] [address] Glucose [Mass/Vol] 125 mg/dL High 70-100 [facility] Comment on above: Result Comment: [place] Glucose Reference Range is dependent on time and content of last meal. Glucose of more than 200 mg/dL in a nonstressed, ambulatory subject supports the diagnosis of Diabetes Mellitus. ADA recommended reference range Performed By: #### H EPATIC, PHOS, MG, HS TROP, CBC, BMP #### [facility] [address] Potassium Normal 3.5-5.1 [facility] [place] Comment on above: Result Comment: Spec imen hemolyzed, redraw requested Performed By: #### H EPATIC, PHOS, MG, HS TROP, CBC, BMP #### [facility] [address] Sodium [Moles/Vol] 139 mmol/L Normal 136-146 [facility] Comment on above: Performed By: #### H EPATIC, PHOS, MG, HS TROP, CBC, BMP #### [facility] [address] [place] [address] Urea nitrogen [Mass/Vol] 27 mg/dL High 9-23 [facility] [place] Comment on above: Performed By: #### H EPATIC, PHOS, MG, HS TROP, CBC, BMP #### [facility] [address] [place] [address] Blood Cultureon 02-06-2021 Bacteria identified Cx Nom (Bld) NO GROWTH 5 DAYS PERFORMED BY: [place] [address] PATHOLOGIST ASSISTANT FITNESS MANAGER DANIELLE ANDERSON M.D. [facility] Comment on above: Performed By: #### H EPATIC, PHOS, MG, HS TROP, CBC, BMP #### [facility] [address] [place] [address] Bacteria identified Cx Nom (Bld) NO GROWTH 5 DAYS PERFORMED BY: [place] [address] PATHOLOGIST ASSISTANT FITNESS MANAGER DANIELLE ANDERSON M.D. [facility] Comment on above: Performed By: #### H EPATIC, PHOS, MG, HS TROP, CBC, BMP #### [address] COVID-19 Antigenon 1 COVID-19 Antigen Results [...] its performance Drew Disclaimer characteristic determined by [employer] and Drew Disclaimer validated at [facility] [place]. This Drew Disclaimer test has not been [...] is terminated or revoked sooner. PERFORMED BY: [facility] [address] [facility] [place] [address] PATHOLOGIST ASSISTANT FITNESS MANAGER DANIELLE ANDERSON M.D. [facility] Comment on above: Performed By: #### C OVID-19 DREW, SOFIAPOS #### [facility] [address] [place] [address] [facility] [address] angio chest PE protocolon 02-06-2021 CT angio chest PE protocol [facility] [address] [place] [address] CT Scan Report Signed Patient: Elizabeth Sánchez MR#: [id number] : 1965 Acct:[id number] Age/Sex: 55 / F ADM Date: 02/06/21 Loc: ER Room: Type: [facility] ER Attending Dr: Ordering Provider: Yang [...] Ramses Gary M.D.02/06/2021 1:30 PM Dictation Location: [place] [address] Transcribed By: [facility] 02/06/21 1330 Dictated By: Ramses Gary DO 02/06/21 1326 Signed By: 02/06/21 1330 Normal [facility] [place] CT head/brain wo conon 02-06 CT head/brain wo con [facility] [place] [address] [place] [address] [address] Scan Report Signed Patient: Elizabeth Sánchez MR#: [id number] : 1965 Acct:[id number] Age/Sex: 55 / F ADM Date: 02/06/21 Loc: ER Room: Type: [facility] ER Attending Dr: Ordering Provider: Yang [...] Ananth Hanson M.D.02/06/2021 10:25 AM Dictation Location: [place] [address] Transcribed By: [facility] 02/06/21 1025 Dictated By: Ananth Hanson MD 02/06/21 1014 Signed By: 02/06/21 1025 Normal [facility] [place] Complete Blood Count Auto Di ffon 02-06-2021 Basophils (Bld) [#/Vol] 0.0 10*3/uL Normal 0.0-0.2 [facility] [place] Comment on above: Result Comment: PERF ORMED BY: [address] [address] PATHOLOGIST ASSISTANT FITNESS MANAGER DANIELLE ANDERSON M.D. Performed By: #### H EPATIC, PHOS, MG, HS TROP, CBC, BMP #### [address] Basophils/100 WBC (Bld) 0.2 % Normal . [facility] [place] Comment on above: Performed By: #### H EPATIC, PHOS, MG, HS TROP, CBC, BMP #### [address] Eosinophils (Bld) [#/Vol] 0.0 10*3/uL Normal 0.0-0.45 [facility] [place] Comment on above: Performed By: #### H EPATIC, PHOS, MG, HS TROP, CBC, BMP #### [address] Eosinophils/100 WBC (Bld) 0.0 % Normal . [facility] [place] Comment on above: Performed By: #### H EPATIC, PHOS, MG, HS TROP, CBC, BMP #### [address] Erythrocyte distribution width (RBC) [Ratio] 13.6 % Normal 11.9-15.3 [facility] [place] Comment on above: Performed By: #### H EPATIC, PHOS, MG, HS TROP, CBC, BMP #### [address] Hematocrit (Bld) [Volume fraction] 37.9 % Normal 34.0-46.4 [facility] [place] Comment on above: Performed By: #### H EPATIC, PHOS, MG, HS TROP, CBC, BMP #### [address] Hemoglobin (Bld) [Mass/Vol] 12.7 g/dL Normal 11.8-15.4 [facility] [place] Comment on above: Performed By: #### H EPATIC, PHOS, MG, HS TROP, CBC, BMP #### [address] Lymphocytes (Bld) [#/Vol] 0.6 10*3/uL Low 1.00-4.8 [facility] [place] Comment on above: Performed By: #### H EPATIC, PHOS, MG, HS TROP, CBC, BMP #### [address] Lymphocytes/100 WBC (Bld) 11.4 % Normal . [facility] [place] Comment on above: Performed By: #### H EPATIC, PHOS, MG, HS TROP, CBC, BMP #### [address] MCH (RBC) [Entitic mass] 31.7 pg Normal 24.7-34.3 [facility] [place] Comment on above: Performed By: #### H EPATIC, PHOS, MG, HS TROP, CBC, BMP #### [address] MCV (RBC) [Entitic vol] 94.6 fL Normal 80-100 [facility] [place] Comment on above: Performed By: #### H EPATIC, PHOS, MG, HS TROP, CBC, BMP #### [address] Mean Corpuscular HGB Conc 33.5 g/dL Normal 32.0-35.0 [facility] [place] Comment on above: Performed By: #### H EPATIC, PHOS, MG, HS TROP, CBC, BMP #### [address] Monocytes (Bld) [#/Vol] 0.7 10*3/uL Normal 0.0-0.8 [facility] [place] Comment on above: Performed By: #### H EPATIC, PHOS, MG, HS TROP, CBC, BMP #### [address] Monocytes/100 WBC (Bld) 11.6 % Normal . [facility] [place] Comment on above: Performed By: #### H EPATIC, PHOS, MG, HS TROP, CBC, BMP #### [address] Neutrophils (Bld) [#/Vol] 4.3 10*3/uL Normal 1.8-7.7 [facility] [place] Comment on above: Performed By: #### H EPATIC, PHOS, MG, HS TROP, CBC, BMP #### [facility] [address] Neutrophils/100 WBC (Bld) 76.8 % Normal . [facility] [place] Comment on above: Performed By: #### H EPATIC, PHOS, MG, HS TROP, CBC, BMP #### [facility] [address] Nucleated RBC/100 WBC (Bld) [Ratio] 0.2 % Normal 0-0.5 [facility] [place] Comment on above: Performed By: #### H EPATIC, PHOS, MG, HS TROP, CBC, BMP #### [address] Platelet mean volume (Bld) [Entitic vol] 9.0 fL Normal 6.3-10.7 [facility] [place] Comment on above: Performed By: #### H EPATIC, PHOS, MG, HS TROP, CBC, BMP #### [facility] [address] Platelets (Bld) [#/Vol] 197 10*3/uL Normal 150-450 [facility] [place] Comment on above: Performed By: #### H EPATIC, PHOS, MG, HS TROP, CBC, BMP #### [address] RBC (Bld) [#/Vol] 4.01 10*6/uL Normal 3.60-5.00 [facility] Comment on above: Performed By: #### H EPATIC, PHOS, MG, HS TROP, CBC, BMP #### [place] [address] [place] WBC (Bld) [#/Vol] 5.6 10*3/uL Normal 4.5-11.0 [facility] Comment on above: Performed By: #### H EPATIC, PHOS, MG, HS TROP, CBC, BMP #### [place] [id number] [facility] D-Dimer High Sensitivityon 1 04-08-2020 D-Dimer High Sensitivity 616 ng/mL High 0-243 [facility] [place] Comment on above: Result Comment: The reference [...] patients due to co-morbid conditions. PERFORMED BY: [place] [address] PATHOLOGIST ASSISTANT FITNESS MANAGER DANIELLE ANDERSON M.D. Performed By: #### H EPATIC, PHOS, MG, HS TROP, CBC, BMP #### [place] [id number] [facility] ECG 12 lead ECGon 02-06-2021 ECG 12 lead ECG [facility] [place] [address] [place] [address] Electrocardiograph Report Signed Patient: Elizabeth Sánchez MR#: [id number] : 1965 Acct:[id number] Age/Sex: 55 / F ADM Date: 02/06/21 Loc: Room: [address] [place] [address] Type: ADM IN Attending Dr: Randa Feng [...] MUS Signed By Andre Mendoza DO 02/08 [facility] Hepatic Panelon 02-06-2021 Albumin [Mass/Vol] 2.8 g/dL Low 3.2-5.5 [facility] Comment on above: Performed By: #### H EPATIC, PHOS, MG, HS TROP, CBC, BMP #### [facility] [address] Albumin/Globulin [Mass ratio] 0.8 {ratio} [facility] Comment on above: Performed By: #### H EPATIC, PHOS, MG, HS TROP, CBC, BMP #### [facility] [address] [place] [address] ALP [Catalytic activity/Vol] 78 U/L Normal 32-92 [facility] [place] Comment on above: Performed By: #### H EPATIC, PHOS, MG, HS TROP, CBC, BMP #### [facility] [address] [place] [address] ALT [Catalytic activity/Vol] 45 U/L Normal 10-60 [facility] [place] Comment on above: Performed By: #### H EPATIC, PHOS, MG, HS TROP, CBC, BMP #### [facility] [address] [place] [address] AST [Catalytic activity/Vol] 47 U/L High 10-42 [facility] [place] Comment on above: Performed By: #### H EPATIC, PHOS, MG, HS TROP, CBC, BMP #### [facility] [address] [place] [address] Bilirubin [Mass/Vol] 0.9 mg/dL Normal 0.3-1.2 [facility] Comment on above: Performed By: #### H EPATIC, PHOS, MG, HS TROP, CBC, BMP #### [facility] [address] [place] [address] Bilirubin,Indirect 0.6 mg/dL Normal [facility] Comment on above: Performed By: #### H EPATIC, PHOS, MG, HS TROP, CBC, BMP #### [address] Bilirubin.indirect [Mass/Vol] 0.3 mg/dL Normal 0.0-0.4 [facility] [place] Comment on above: Performed By: #### H EPATIC, PHOS, MG, HS TROP, CBC, BMP #### [address] Globulin (S) [Mass/Vol] 3.6 g/dL Normal [facility] [place] Comment on above: Performed By: #### H EPATIC, PHOS, MG, HS TROP, CBC, BMP #### [address] Protein [Mass/Vol] 6.4 g/dL Normal 6.1-7.9 [facility] Comment on above: Performed By: #### H EPATIC, PHOS, MG, HS TROP, CBC, BMP #### [address] Magnesiumon 02-06-2021 Magnesium [Mass/Vol] 2.4 mg/dL Normal 1.6-2.6 [facility] Comment on above: Result Comment: PERF ORMED BY: [place] [address] PATHOLOGIST ASSISTANT FITNESS MANAGER DANIELLE ANDERSON M.D. Performed By: #### H EPATIC, PHOS, MG, HS TROP, CBC, BMP #### [address] Partial Thromboplastin Timeo n 02-06-2021 aPTT Coag (Bld) [Time] 29.1 s Normal 25.1-36.5 [facility] [place] Comment on above: Performed By: #### H EPATIC, PHOS, MG, HS TROP, CBC, BMP #### [address] Phosphoruson 02-06-2021 Phosphate [Mass/Vol] 3.1 mg/dL Normal 2.5-4.6 [facility] Comment on above: Performed By: #### H EPATIC, PHOS, MG, HS TROP, CBC, BMP #### [facility] [address] [place] [address] [place] Prothrombin Time INRon 02-06 INR Coag (PPP) [Relative time] 1.4 {INR} Normal [facility] [place] Comment on above: Result Comment: INR Therapeutic [...] PHOS, MG, HS TROP, CBC, BMP #### [facility] [address] PT Coag (PPP) [Time] 15.8 s High 9.0-12.9 [facility] Comment on above: Performed By: #### H EPATIC, PHOS, MG, HS TROP, CBC, BMP #### [facility] [address] Redraw Potassiumon 1 Potassium [Moles/Vol] 3.6 mmol/L Normal 3.5-5.1 [facility] [place] Comment on above: Result Comment: PERF ORMED BY: [place] [address] PATHOLOGIST ASSISTANT FITNESS MANAGER DANIELLE ANDERSON M.D. Performed By: #### H EPATIC, PHOS, MG, HS TROP, CBC, BMP #### [facility] [address] Drew Ag Positiveon 02-07-20 21 Drew Ag Positive Positive Critically abnormal Negative [facility] [place] Comment on above: Result Comment: This is a duplicate Drew SARS Antigen (PRECIOUS) result to be used for statistical tracking purpose only. PERFORMED BY: [place] [address] PATHOLOGIST ASSISTANT FITNESS MANAGER DANIELLE ANDERSON M.D. Performed By: #### H EPATIC, PHOS, MG, HS TROP, CBC, BMP #### [facility] [address] Troponin I High Sensitivityo n 02-06-2021 Troponin I High Sensitivity 14 pg/mL Normal 0-15 [facility] [place] Comment on above: Result Comment: PERF ORMED BY: [address] [place] [address] PATHOLOGIST ASSISTANT FITNESS MANAGER DANIELLE ANDERSON M.D. Performed By: #### H EPATIC, PHOS, MG, HS TROP, CBC, BMP #### [address] XR chest 1V portableon 02-06 XR chest 1V portable [facility] [address] [place] [address] XRay Report Signed Patient: Elizabeth Sánchez MR#: [id number] : 1965 Acct:[id number] Age/Sex: 55 / F ADM Date: 02/06/21 Loc: ER Room: Type: [facility] ER Attending Dr: Ordering Provider: Yang [...] Ananth Hanson M.D.02/06/2021 9:49 AM Dictation Location: [place] [address] Transcribed By: [facility] 02/06/21948 Dictated By: Ananth Hanson MD 02/06/2144 Signed By: 02/06/21948 [facility] Vital Signs Date Time Vital Sign Value Performing Clinician Facility 04-28-2023 08:04-0500 Body temperature 98.29 [degF] Nola Skelton MD Work Phone: [facility] 04-28-2023 08:04-0500 Diastolic blood pressure 91 mm[Hg] Nola Skelton MD Work Phone: [facility] 04-28-2023 08:04-0500 Heart rate 91 /min Nola Skelton MD Work Phone: [facility] 04-28-2023 08:04-0500 Respiratory rate 19 /min Nola Skelton MD Work Phone: [facility] 04-28-2023 08:04-0500 SaO2% (BldA) [Mass fraction] 97 % Nola Skelton MD Work Phone: [facility] 04-28-2023 08:04-0500 Systolic blood pressure 122 mm[Hg] Nola Skelton MD Work Phone: [facility] 04-27-2023 03:47-0500 Body mass index (BMI) [Ratio] 33.25 kg/m2 Nola Skelton MD Work Phone: [facility] 04-27-2023 03:47-0500 Body weight 105.1 kg Nola Skelton MD Work Phone: [facility] 04-22-2023 12:33-0500 Body height 177.8 cm Nola Skelton MD Work Phone: [facility] 03-17-2023 08:45-0500 Diastolic blood pressure 80 mm[Hg] Nola Zuniga [facility] 03-17-2023 08:45-0500 Heart rate 73 /min Nola Zuniga [facility] 03-17-2023 08:45-0500 Mean blood pressure 97 mm[Hg] Nola Zuniga [facility] 03-17-2023 08:45-0500 Systolic blood pressure 132 mm[Hg] Nola Zuniga [facility] 03-17-2023 08:45-0500 Heart rate 69 /min Nola Zuniga [facility] 03-17-2023 08:45-0500 SaO2% (BldA) [Mass fraction] 93 % Nola Zuniga [facility] 03-17-2023 08:45-0500 Diastolic blood pressure 71 mm[Hg] Nola Zuniga [facility] 03-17-2023 08:45-0500 Mean blood pressure 91 mm[Hg] Nola Zuniga [facility] 03-17-2023 08:45-0500 Systolic blood pressure 131 mm[Hg] Nola Zuniga [facility] 03-17-2023 08:44-0500 Respiratory rate 17 /min Nola Zuniga [facility] 05-04-2022 17:42-0500 Body height 170.18 cm Cassie Lorenz Other [facility] Other 04-16-2022 16:15-0500 Body height 170.18 cm Cassie Lorenz Other [facility] Other 04-16-2022 16:15-0500 Body mass index (BMI) [Ratio] 35.86 kg/m2 Cassie Lorenz Other [facility] Other 04-16-2022 16:15-0500 Body weight 103.87 kg Cassie Lorenz Other [facility] Other 04-16-2022 16:15-0500 Diastolic blood pressure 80 mm[Hg] Cassie Lorenz Other [facility] Other 04-16-2022 16:15-0500 SaO2% (BldA) [Mass fraction] 97 % Cassie Lorenz Other [facility] Other 04-16-2022 16:15-0500 Systolic blood pressure 138 mm[Hg] Cassie Lorenz Other [facility] Other Encounters Encounter Date Encounter Type Care Provider Facility Start: 05-03-2023 End: 05-03-2023 ambulatory Cassie Lorenz Other [facility] Other Start: 05-03-2023 Sbsq nursing facil care/day new problem 25 min Cassie Lorenz [facility] Start: 05-03-2023 Telephone encounter Cassie Lorenz [facility] Start: 04-30-2023 End: 04-30-2023 ambulatory Cassie Lorenz Other [facility] Other Start: 04-30-2023 Telephone encounter Cassie Lorenz [facility] Start: 04-21-2023 Evaluation and management of inpatient [facility] Start: 04-21-2023 Emergency department patient visit [facility] Start: 04-21-2023 End: 04-28-2023 Evaluation and management of [facility] Start: 04-21-2023 End: 04-28-2023 Evaluation and management of inpatient Nola Skelton MD Work Phone: [facility]Med Surg Comment on above: Pulmonary embolism ( HCC) (Primary Dx); Acute saddle pulmonary embolism without acute cor pulmonale (HCC); Claudication of both lower extremities (HCC); Peripheral venous insufficiency; Seizure disorder (HCC) Start: 04-21-2023 End: 04-21-2023 ambulatory Cassie Lorenz Other [facility] Other Start: 04-21-2023 Telephone encounter Cassie Lorenz [facility] Start: 04-12-2023 End: 04-12-2023 ambulatory Cassie Lorenz Other [facility] Other Start: 04-12-2023 Initial nursing facility care/day 35 minutes Cassie Dye [facility] Start: 04-05-2023 End: 04-08-2023 Evaluation and management of inpatient Nola Zuniga Facility:[facility] Start: 03-19-2023 End: 03-19-2023 ambulatory Cassie Lorenz Other [facility] Other Start: 03-19-2023 Telephone encounter Cassie Lorenz [facility] Start: 03-17-2023 End: 03-17-2023 ambulatory LUCY MENENDEZ Not Available Start: 03-17-2023 End: 03-18-2023 ambulatory Nola Zuniga Facility:[facility] Start: 03-17-2023 End: 03-17-2023 Patient encounter procedure Nola Zuniga [facility] Start: 02-10-2023 End: 02-10-2023 ambulatory NOLA ZUNIGA Not Available Start: 07-21-2022 End: 07-22-[address] CASSIE LORENZ Facility: Start: 06-30-2022 End: 06-30-2022 ambulatory Cassie Lorenz Other [facility] Other Start: 06-30-2022 Telephone encounter Cassie Lorenz [facility] Start: 06-16-2022 End: 06-16-2022 ambulatory Cassie Lorenz Other [facility] Other Start: 06-16-2022 Telephone encounter Cassie Lorenz [facility] Start: 06-03-2022 End: 06-03-2022 ambulatory Cassie Lorenz Other [facility] Other Start: 06-03-2022 Telephone encounter Cassie Lorenz [facility] Start: 05-11-2022 End: 05-11-2022 ambulatory Cassie Lorenz Other [facility] Other Start: 05-11-2022 Telephone encounter Cassie Lorenz [facility] Start: 05-04-2022 End: 05-04-2022 ambulatory Cassie Lorenz Other [facility] Other Start: 05-04-2022 Telephone encounter Cassie Lorenz [facility] Start: 04-16-2022 End: 04-17-[address] CASSIE LORENZ [facility] Other Start: 04-16-2022 Office outpatient vi sit 15 minutes Cassie Lorenz [facility] Start: 04-06-2022 End: 04-06-2022 ambulatory Cassie Lorenz Other [facility] Other Start: 04-06-2022 Telephone encounter Cassie Lorenz [facility] Start: 03-20-2022 End: 03-20-2022 ambulatory Cassie Lorenz Other [facility] Other Start: 03-20-2022 Telephone encounter Cassie Lorenz [facility] Start: 03-19-[address] CASSIE LORENZ Facil [...] Work Phone: Start: 04-21-2023 CATH HEMO INTERFACE [facility] yusuf Pinzon MD Work Phone: Start: 04-21-2023 [...] Work Phone: Start: 04-21-2023 CATH HEMO INTERFACE [facility] yusuf Pinzon MD Work Phone: Start: 04-21-2023 [...] cor pulmonale (HCC) Expected: 05/04/2023, Expires: 04/27/2024 [facility] Comment on above: Expected: 05/04/2023 , Expires: 04/27/2024 Start: 04-21-2023 Annual Wellness Visi t (Medicare) Annual Wellness Visit (Medicare) [facility] Start: 10-20-2022 Influenza vaccination [facility] Start: 06-21-2013 Screening for malign ant neoplasm of breast Breast cancer screen [facility] Start: 06-21-2013 Shingles vaccine (1 of 2) Shingles v accine (1 of 2) [facility] Start: 06-21-2008 Screening for malign ant neoplasm of colon [facility] Start: 2003 Lipid panel Lipids [facility] Start: 06-21-1998 Diabetes screen Diabetes screen [facility] Start: 06-21-1993 Screening for malign ant neoplasm of cervix [facility] Start: 06-21-1984 Screening for malign ant neoplasm of cervix Pap smear [facility] Start: 06-21-1982 DTaP/Tdap/Td vaccine (1 - Tdap) DTaP/Tdap/Td vaccine (1 - Tdap) [facility] Start: 06-21-1981 Hepatitis C screening Hepatitis C sc reen [facility] Start: 06-21-1978 HIV screening HIV screen [facility] [employer] Start: 1975 Depression Screen Depression Screen [facility] Start: 1965 COVID-19 Vaccine (#1) COVID-19 Vacci ne (#1) [facility] Start: 1965 Hepatitis B vaccine (1 of 3 - 3-dose series) Hepatitis B vaccine (1 of 3 - 3-dose series) [facility] End: 04-29-2023 Anti-Xa, Unfractionated Heparin Anti-Xa, Unfractionated Heparin Lab Timed Now Then Every 6hr for 3 Days starting 04/26/2023 until 04/29/2023, 5 completed [facility] Comment on above: Now Then Every 6hr f or 3 Days starting 04/26/2023 until 04/29/2023, 5 completed End: 05-06-2023 Basic metabolic 2000 panel - Serum or Plasma Basic Metabolic Panel Lab Routine Daily for 15 Days starting 04/22/2023 until 05/06/2023, 6 completed [facility] Comment on above: Daily for [address] arting 04/22/2023 until 05/06/2023, 6 completed End: 05-06-2023 CBC panel - Blood by Automated count CBC Lab Routine Every Other Day for 10 Days starting 04/28/2023 until 05/06/2023, 1 completed [facility] Comment on above: Every Other Day for 10 Days starting 04/28/2023 until 05/06/2023, 1 completed Chest physiotherapy Chest physio therapy Respiratory Care Routine Daily until discontinued starting 04/26/2023 [facility] Comment on above: Daily until disconti nued starting 04/26/2023 Continuous pulse oximetry Pulse oximetry, continuous Respiratory Care Routine Every 4hr until discontinued starting 04/26/2023 [facility] Comment on above: Every 4hr until disc ontinued starting 04/26/2023 Nasal Cannula Oxygen Nasal Cannu la Oxygen Respiratory Care Routine Daily until discontinued starting 04/21/2023 [facility] Comment on above: Daily until disconti nued starting 04/21/2023 Oxygen therapy [[facility] Data Set] Initiate Oxygen Therapy Protocol Respiratory Care Routine As Needed until discontinued starting 04/21/2023 [facility] Work Phone: Comment on above: As Needed until disc ontinued starting 04/21/2023 End: 05-23-2023 Protime-INR Protime-INR Lab Routine Daily for 30 Days starting 04/24/2023 until 05/23/2023, 4 completed [facility] Comment on above: Daily for [address] arting 04/24/2023 until 05/23/2023, 4 completed End: 04-23-2023 SPECIMEN REJECTION [facility] Comment on above: Once for 1 Occurrenc es starting 04/23/2023 until 04/23/2023 Spirometry panel Incentive juanis metry RT Respiratory Care Routine Every 2hr while awake until discontinued starting 04/26/2023 [facility] Comment on above: Every 2hr while awak e until discontinued starting 04/26/2023 Immunizations Immunization Date Immunization Notes Care Provider [facility] 01-01-2022 influenza virus vaccine, split virus (incl. purified surface antigen) Cassie Lorenz Other [facility] Other 01-28-2021 influenza virus vaccine, split virus (incl. purified surface antigen) Cassie Lorenz Other [facility] Other 12-07-2019 influenza virus vaccine, split virus (incl. purified surface antigen) Cassie Lorenz Other [facility] Other 04-09-2016 pneumococcal polysaccharide vaccine, 23 valent Cassie Lorenz Other [facility] Other Payers Date Payer Category Payer Unknown [id number] 2.16.84 [id number] 1965 Unknown [id number] 2.16.84 [id number] 1965 Unknown [id number] 2.16.84 [id number] 1965 Unknown [id number] 1965 Unknown [id number] 1965 Unknown [id number] 2.16. [id number] 1965 Unknown [id number] 2.16. [id number] 1965 Unknown [id number] 2.16.8 [id number] 1965 Unknown [id number] 2.16.8 [id number] 1961 Medicaid [id number] 2. [id number] 1961 Medicare [id number] 2.1 [id number] Social History Date Type Detail Facility Start: 04-21-2023 End: 04-24-2023 Sex Assigned At [facility] Tobacco smoking status No Smokin g Status Entered [facility] Start: 04-21-2023 Tobacco smoking stat us NHIS Never smoked tobacco [facility] Start: 04-21-2023 Tobacco use and exposure Smoke less tobacco non-user [facility] Start: 04-24-2023 Alcohol intake Ex-drinker (finding) [facility] Start: 04-21-2023 End: 04-24-2023 History of Social function [facility] Has the electric, [employer] s, oil, or water [employer] threatened to shut off services in your home in past 12Mo No [facility] (I/We) worried hermelindo gusman (my/our) food would run out before (I/we) got money to buy more. Never true [facility] In the past 12 month s, has lack of transportation kept you from medical appointments or from getting medications? Yes [facility] Start: 1965 Sex Assigned At Not on file B ON [facility] NEGATED: Highlighted rowStart: NINF History of tobacco use Passive smoker [facility] Functional Status Date Assessment Result Facility 03-17-2023 Functional Status No [facility] Clinical Notes 04-16-2022 to 05-03-2023 Note Date [...] Ambrocio's team. Rx sent last week to [facility] pharmacy [facility] Other 02-07-2024 History of Present illness Narrative* [...] Total knee arthroplasty (Right). Medications: Reviewed in [facility] including carbamazepine Allergies: Dilantin [phenytoin] Social History: [...] will determine the need as an outpatient Naida Lund MD [facility] This note is created with the assistance of a speech recognition program. While intending to generate a document that actually reflects the content of the visit, the document can still have some errors including those of syntax and sound a like substitutions which may escape proof reading. It such instances, actual meaning can be extrapolated by contextual diversion. * Keir Teixeira - 04/27/2023 3:07 PM EST Occupational Therapy Facility/Department: [facility] RENAL//MED SURG Occupational Therapy Treatment Session [...] documented unless otherwise noted below. 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 Vascular surgery will sign off [facility] Associated attestation - Ilia Christy MD - [...] plan with Dr. Pinzon. * Sourav Mak [facility] - 04/27/2023 11:54 AM EST Pharmacy Note [...] 04/27/2023 11:06 AM EST Physical Therapy Facility/Department: [facility] RENAL//MED SURG Physical Therapy Daily Treatment [...] assess- pt seated in bedside chair upon rewriter's exit) Transfers Sit to Stand: Contact guard [...] slides, short arc quads, LAQs. Reps: x10 [facility] - Mobility [facility] Basic Mobility - Inpatient How much [...] 3-5 steps with a railing?: A Lot [facility] Inpatient Mobility Raw Score : 20 [facility] Inpatient T-Scale Score : 47.67 Mobility [...] Katy Pardo - 04/27/2023 10:28 AM EST Production Illustrator New Medication Counseling Note Medication counseling provided [...] medication list. Patient verbalized understanding. Katy Pardo Production Illustrator * Ismael Reynolds MD - 04/27/2023 10:20 AM EST Images from the original note were not included. [facility] Office: [phone] Reggie Barrera DO, Darin Forman DO, Werner [...] Brooke MD, Isaak Padilla MD, Lissette Rodriguez, TALKING BOOKS LIBRARY CLERK, Elizabeth Bryant, TALKING BOOKS LIBRARY CLERK, Tino Lr, TALKING BOOKS LIBRARY CLERK, Leticia Zuniga, RUDDY,Kim Hammer, TALKING BOOKS LIBRARY CLERK, Rebekah Vásquez, TALKING BOOKS LIBRARY CLERK, Steph Ly TALKING BOOKS LIBRARY CLERK, Maryanne Oh, TALKING BOOKS LIBRARY CLERK, Laly Navarro, TALKING BOOKS LIBRARY CLERK, Jennifer Souza, PA-C, Desi Gann, PA-C, Nidia Montgomery, TALKING BOOKS LIBRARY CLERK, Palmira Gonzales, DRIVER MATERIAL HANDLER, Valery Gary, TALKING BOOKS LIBRARY CLERK, Margoth Ackerman TALKING BOOKS LIBRARY CLERK, Ricarda Shelby, TALKING BOOKS LIBRARY CLERK [facility] IN-PATIENT SERVICE [facility] Progress Note 04/27/2023 10:20 AM Name: Elizabeth Sánchez Acct: [id number] Room: [address] [place] [address] Day: 6 Admit Date: 04/21/2023 2:29 PM [...] 57 y.o. with presented as transfer from [place] to [place] with 2d of sob, syncope.S [...] input(s): PROT , LABALBU , LABA1C , M7VSZJX , X1XEPWM , FT4 , TSH , AST , ALT , LDH , GGT , ALKPHOS , LABGGT , BILITOT , BILIDIR , AMMONIA , AMYLASE , LIPASE , LACTATE , CHOL , HDL , LDLCHOLESTEROL , CHOLHDLRATIO , TRIG , VLDL , ZAS90OX , PHENYTOIN , PHENYF , URICACID , POCGLU in the last 72 hours. ABG:No results found for: POCPH , PHART , PH , POCPCO2 , VKH1VQI , PCO2 , POCPO2 , PO2ART , PO2 , POCHCO3 , PXV5EIS , HCO3 , NBEA , PBEA , BEART , BE , THGBART , THB , LNI7AAN , ZRSK9OZQ , M6BHWOIT , O2SAT , FIO2 No results found [...] planning-->POA , placement pending [][] -[facility] [place] reoprted they would allow patient to return [...] Physician Progress Note Patient - Elizabeth Hull Duncombe Date of Admission - 04/21/2023 2:29 PM Date of Evaluation - 04/22/2023 Room and Bed Number - 3002/3002-01 Hospital Day - 1 Cc- pe SUBJECTIVE: OVERNIGHT EVENTS: Denied shortness of breath No acute events reported overnight. INR - 2.4 Brief History: Patient, 57-year-old female, transferred from [facility] facility where she was found to have saddle pulmonary embolism. Patient recently underwent right total knee replacement 2 weeks ago at [facility]. Yesterday, patient was feeling dizzy and lightheaded. When she arrived to ED she was reporting chest pressure. She was also found to be in acute hypoxic respiratory failure, put on nasal cannula. Her CT PE was done which showed saddle pulmonary embolism. Considering her acute condition, she was transferred to [place] for further evaluation management. Vascular surgery has [...] Date 04/22/23 0000 - 04/22/23 2359 Shift [id number] 2917-3741 9667-2908 24 Hour Total INTAKE I.V.(mL/kg) 81.9(0.8) 81.9(0.8) [...] Date 04/27/23 0000 - 04/27/23 2359 Shift [id number] 1839-2828 7959-0632 24 Hour Total INTAKE P.O.(mL/kg/hr) 400(0.5) 400 [...] NEGATIVE No results for input(s): PHART , GWT6UTW , PO2ART in the last 72 hours. [...] :INR today 2.4 We will sign off [facility] Internal Medicine Residency Program, PGY - 3 [place], [place] Attending Physician Statement I have discussed [...] this chart was generated using voice recognition Visieron dictation software. Although every effort was made to ensure the accuracy of this automated creping machine operator, some errors in creping machine operator may have occurred. * Kareem Bailey RCP [...] Total knee arthroplasty (Right). Medications: Reviewed in [facility] including carbamazepine Allergies: Dilantin [phenytoin] Social History: [...] need as an outpatient Nadia Lund MD [facility] This note is created [...] extrapolated by contextual diversion. * Sourav Mak, [facility] - 04/26/2023 12:40 PM EST Pharmacy Note [...] Physician Progress Note Patient - Elizabeth Hull Duncombe Date of Admission - 04/21/2023 2:29 PM Date of Evaluation - 04/22/2023 Room and Bed Number - 3002/3002-01 Hospital Day - 1 Cc- pe SUBJECTIVE: OVERNIGHT EVENTS: No acute events reported overnight. Inr - 1.9 Brief History: Patient, 57-year-old female, transferred from [facility] facility where she was found to have saddle pulmonary embolism. Patient recently underwent right total knee replacement 2 weeks ago at [facility]. Yesterday, patient was feeling dizzy and lightheaded. When she arrived to ED she was reporting chest pressure. She was also found to be in acute hypoxic respiratory failure, put on nasal cannula. Her CT PE was done which showed saddle pulmonary embolism. Considering her acute condition, she was transferred to [place] for further evaluation management. Vascular surgery has [...] OBJECTIVE: Date 04/22/23 - 04/22/23 2359 Shift [id number] 3329-4756 1114-7341 24 Hour Total INTAKE I.V.(mL/kg) 81.9(0.8) 81.9(0.8) [...] [Urine:1250] Date 04/26/23 - 04/26/23 235 Shift [id number] 8594-0298 4147-5017 24 Hour Total INTAKE P.O.(mL/kg/hr) 240(0.3) 240 [...] KETONESU No results for input(s): PHART , BYA6JIO , PO2ART in the last 72 hours. [...] from the original note were not included. [facility] Office: [phone] Reggie Barrera DO, Darin Forman DO, Werner [...] Leticia Zuniga, RUDDY,Kim Hammer, ANY, Rebekah Vásquez, TALKING BOOKS LIBRARY CLERK, Steph Ly, TALKING BOOKS LIBRARY CLERK, Maryanne Oh, TALKING BOOKS LIBRARY CLERK, Laly Navarro, TALKING BOOKS LIBRARY CLERK, Jennifer Souza PA-C, Desi Gann PA-C, Nidia Montgomery, TALKING BOOKS LIBRARY CLERK, Palmira Gonzales, DEEPTI, Valery Gary, TALKING BOOKS LIBRARY CLERK, Margoth Ackerman, TALKING BOOKS LIBRARY CLERK, Ricarda Shelby, TALKING BOOKS LIBRARY CLERK [facility] IN-PATIENT SERVICE [facility] Progress Note 04/26/2023 9:07 AM Name: Elizabeth Sánchez Acct: [id number] Room: [address] [place] [address] Day: 5 Admit Date: 04/21/2023 2:29 PM [...] 57 y.o. with presented as transfer from [place] to [place] with 2d of sob, syncope.S [...] , PHART , PH , POCPCO2 , TIW1ONO , PCO2 , POCPO2 , PO2ART , PO2 , POCHCO3 , FUM3OSC , HCO3 , NBEA , PBEA , BEART , BE , THGBART , THB , KVM5TWK , LAMT1UPG , Y4IMLWZS , O2SAT , FIO2 No results found [...] planning-->POA , placement pending [][] -[facility] [place] reoprted they would allow patient to return [...] from the original note were not included. [facility] Office: [phone] Reggie Barrera DO, Darin Forman DO, Werner [...] Leticia Zuniga DNP,Kim Hammer CNP, Rebekah Vásquez, TALKING BOOKS LIBRARY CLERK, Steph Ly, TALKING BOOKS LIBRARY CLERK, Maryanne Oh, TALKING BOOKS LIBRARY CLERK, Laly Navarro, TALKING BOOKS LIBRARY CLERK, SHAY HdzC, SHAY GlaserC, Nidia Montgomery, TALKING BOOKS LIBRARY CLERK, Palmira Gonzales, DRIVER MATERIAL HANDLER, Valery Gary, TALKING BOOKS LIBRARY CLERK, Margoth Ackerman, TALKING BOOKS LIBRARY CLERK, Ricarda Shelby, TALKING BOOKS LIBRARY CLERK [facility] IN-PATIENT SERVICE [facility] Progress Note 04/25/2023 7:37 PM Name: Elizabeth Sánchez Acct: [id number] Room: [address] [place] [address] Day: 4 Admit Date: 04/21/2023 2:29 PM [...] , PHART , PH , POCPCO2 , POW2VAC , PCO2 , POCPO2 , PO2ART , PO2 , POCHCO3 , BQP5NZH , HCO3 , NBEA , PBEA , BEART , BE , THGBART , THB , VPE0KAL , JZQH5EWN , Q3MULRRO , O2SAT , FIO2 No results found [...] Total knee arthroplasty (Right). Medications: Reviewed in [facility] including carbamazepine Allergies: Dilantin [phenytoin] Social History: [...] need as an outpatient Nadia Lund MD 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 Leisure & Hobbies: playing with cat, goes to [employer] on [employer] Objective SpO2: 95 % O2 Device: Nasal [...] Additional Comments: Pt finished lunch right before rewriter entered room while supine with HOB elevated, pt transferred to EOB and doffed/donned R sock by bending at torso despite rewriter bringing sock-aid/wood borer, pt transferred to recliner, pt demo'd good [...] 04/25/2023 2:13 PM EST Physical Therapy Facility/Department: [facility] RENAL//MED SURG Physical Therapy Initial Assessment [...] Ambulation Assistance: Independent Transfer Assistance: Independent Active Specialty Cook: No Patient's Specialty Cook Info: sister in law Mode of Transportation: Car 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 Medications: Reviewed in [facility] including carbamazepine Allergies: Dilantin [phenytoin] Social History: [...] need as an outpatient Nadia Lund MD [facility] This note is created [...] extrapolated by contextual diversion. * Darryn Michelle [facility] - 04/24/2023 12:51 PM EST Pharmacy Note [...] from the original note were not included. [facility] Office: [phone] Reggie Barrera DO, Darin Forman DO, Werner Parra DO, Ramses Fish DO, Wanda Montgomery MD, Rosa Elena Schwartz MD, Vani Hsu MD, Katie Stallinsg MD, Narinder Maki MD, Katerina Christy MD, [...] Elizabeth Younger MD, Kyle Rodriguez, DO, Je Mnuguia, DO, Nathalia Brooke MD, Isaak Padilla MD, Lissette Rodrgiuez, TALKING BOOKS LIBRARY CLERK, Elizabeth Bryant, TALKING BOOKS LIBRARY CLERK, Tino Lr, TALKING BOOKS LIBRARY CLERK, Leticia Zuniga, [facility],Kim Hammer, TALKING BOOKS LIBRARY CLERK, Rebekah Vásquez, TALKING BOOKS LIBRARY CLERK, Steph Ly, TALKING BOOKS LIBRARY CLERK, Maryanne Oh, TALKING BOOKS LIBRARY CLERK, Laly Navarro, TALKING BOOKS LIBRARY CLERK, Jennifer Souza PATylerC, Desi Gann PATylerC, Nidia Montgomery, TALKING BOOKS LIBRARY CLERK, Palmira Gonzales, DRIVER MATERIAL HANDLER, Valery Gary, TALKING BOOKS LIBRARY CLERK, Margoth Ackerman, TALKING BOOKS LIBRARY CLERK, Ricarda Shelby, TALKING BOOKS LIBRARY CLERK [facility] IN-PATIENT SERVICE [facility] Progress Note 04/24/2023 7:56 AM Name: Elizabeth Sánchez Acct: [id number] Room: [address] [place] [address] Day: 3 Admit Date: 04/21/2023 2:29 PM [...] , PHART , PH , POCPCO2 , OHJ8XKY , PCO2 , POCPO2 , PO2ART , PO2 , POCHCO3 , FTE3RHT , HCO3 , NBEA , PBEA , BEART , BE , THGBART , THB , ONU5ONL , TTHC8PQO , B9HYQGGZ , O2SAT , FIO2 No results found [...] care monitoring -neurovascular checks * Sourav Mak [facility] - 04/23/2023 3:56 PM EST Pharmacy Note [...] from the original note were not included. [facility] Office: [phone] Reggie Barrera DO, Darin Forman DO, Werner [...] Padilla MD, Lissette Rodriguez, ANY, Elizabeth Bryant, TALKING BOOKS LIBRARY CLERK, Tino Lr, TALKING BOOKS LIBRARY CLERK, Leticia Zuniga, RUDDY,Kim Hammer, TALKING BOOKS LIBRARY CLERK, Rebekah Vásquez, TALKING BOOKS LIBRARY CLERK, Steph Ly TALKING BOOKS LIBRARY CLERK, Maryanne Oh, TALKING BOOKS LIBRARY CLERK, Laly Navarro, TALKING BOOKS LIBRARY CLERK, Jennifer Souza, PA-C, Desi Gann PA-C, Nidia Montgomery, TALKING BOOKS LIBRARY CLERK, Palmira Gonzales, DRIVER MATERIAL HANDLER, Valery Gary, TALKING BOOKS LIBRARY CLERK, Margoth Ackerman, TALKING BOOKS LIBRARY CLERK, Ricarda Shelby, TALKING BOOKS LIBRARY CLERK [facility] IN-PATIENT SERVICE [facility] CONSULTATION / HISTORY AND PHYSICAL EXAMINATION Date: 04/23/2023 Patient name: Elizabeth Sánchez Date of admission: 04/21/2023 2:29 PM Account: [id number] Date of : 1965 PCP: No primary care provider on file. Room: [address] [place] [address] Code Status: Full Code Physician Requesting Consult: [...] THROMBECTOMY performed by Luisito Pinzon MD at [facility] Medications Prior to Admission: Prior to Admission [...] cm2 LVOT SV 54.0 ml LA Minor [place] 5.0 cm LA Major [place] 5.8 cm LA Area 2C 14.4 cm2 [...] THROMBECTOMY performed by Luisito Pinzon MD at [facility] Family History: Family History Problem Relation Age [...] for outpatient follow up in 1 month. [facility] [place] O: C: Email: [email or web address] * Vinay Shelton MD - 04/22/2023 2:39 PM EST Critical care team - Resident sign-out to medicine service Date and time: 04/22/2023 2:40 PM Patient's name: Elizabeth Sánchez Patient's account/billing number: [id number] Patient's Date of : 1965 Age: 57 [...] resident Department of Internal Medicine/ Critical care [facility]) 04/22/2023, 2:40 PM * Keyon Maki [...] to transfer to step down unit today. [facility] [place] O: C: Email: [email or web address] * Abhinav Gonzales MD - 04/22/2023 7:06 [...] total knee replacement 2 weeks ago at [facility]. Yesterday, patient was feeling dizzy and lightheaded. When she arrived to ED she was reporting chest pressure. She was also found to be in acute hypoxic respiratory failure, put on nasal cannula. Her CT PE was done which showed saddle pulmonary embolism. Considering her acute condition, she was transferred to [place] for further evaluation management. Vascular surgery has [...] ml Date 04/22/23 - 04/22/23 2359 Shift [id number] 6965-2801 1411-2300 24 Hour Total INTAKE I.V.(mL/kg) 81.9(0.8) 81.9(0.8) [...] results found for: PHART , PH , WRP5SHH , PCO2 , PO2ART , PO2 , MIB9PCS , HCO3 , BEART , BE , THGBART , THB , HUR5DII , M1BPLVFE , O2SAT , FIO2 DATA: Complete Blood [...] PROPHYLAXIS: Stress ulcer: [x] PPI Agent [] K6Motmu [] Sucralfate [] Other: VTE: [] Enoxaparin [...] Hull MD Internal Medicine Resident, PGY- 2 [place], [place]. 7:07 AM This note is created [...] this chart was generated using voice recognition Visieron dictation software. Although every effort was made to ensure the accuracy of this automated creping machine operator, some errors in creping machine operator may have occurred. [facility] course Narrative* Ismael Reynolds MD - [...] 57 y.o. with presented as transfer from [place] to [facility] with 2d of sob, syncope.S [...] Surgeries/procedures Performed: Treatments: Procedures Discharge Plan/Disposition: To [facility] Hospital/Incidental Findings Requiring Follow Up: Patient [...] and follow up. documented in this encounterB[facility] Hospital Discharge instructions* Discharge Instructions* Ismael Reynolds [...] Emergency Contact: dottie sánchez Mobile Relation: Brother/Sister Billing Analyst needed? No Past Surgical History: Past Surgical History: Procedure Laterality Date TOTAL KNEE ARTHROPLASTY Right VASCULAR SURGERY N/A 04/21/2023 INARI- MECHANICAL THROMBECTOMY performed by Luisito Pinzon MD at [facility] Immunization History: There is no immunization history [...] Assisted Dressing Assisted Toileting Assisted Feeding Independent Sanding Supervisor Assisted Med Delivery whole Wound Care Documentation [...] applicable) Name: Address: Dialysis Schedule: Phone: Fax: Director Of Clinical Applications/Risk Manager signature: PHYSICIAN SECTION Prognosis: Fair Condition at [...] the diagnosis listed and that she requires [facility] Facility for less 30 days. Update Admission H&P: No change in H&P PHYSICIAN SIGNATURE: documented in this encounterB[facility]01-22-[facility] Evaluation note* Encounter Date Diagnosis Assessment Notes Treatment Notes Treatment Clinical Notes Mar, Status post right knee replacement (ICD-10 - Z96.651) Reviewed OARRS report. Percocet refilled last week. Skilled bed. Receiving PT. Mar, Seizure disorder (ICD-10 - G40.909) Reviewed med prescribed by GUILLERMO. Updated medication list. FOllowup w Neurology as scheduled. [facility] Other 01-18-2024 NotePatient: ELIZABETH SÁNCHEZ Age: 57 [...] Daily, 0 Refill(s) potassium chloride (Potassium Chloride (Hzr-Mvhk-Ihu 10) 10 mEq oral tablet, extended release) 10 mEq, 1 tab(s), Oral, Daily, 0 Refill(s) sertraline (sertraline 25 mg Tab) 25 mg, 1 tab(s), Oral, Daily, 0 Refill(s) Stable course. D/C [facility]. ASA 325mg 4 weeks for DVTp. Mepilex. Reg diet. F/u 4 weeks.[facility] HospitalComment on above:Result Comment: Electronically Signed By: Nola Zuniga DO\.br\Date and Time Signed: 04/08/23 07:32 [id number] NotePROGRESS NOTE: 04/07/2022 Postoperative day #2 orthopedic [...] The patient will be going to the [facility] either this evening or when room is available. She has then plans to be discharged home after the recovery period through the [facility]. Will seeher in the office with Dr. Zuniga. Eris Hobson PA-C (For Nola Zuniga D.O.) ls Dictated: 04/07/2023 [id number] Transcribed: 04/07/2023[facility] HospitalComment on above:Result Comment: Electronically Signed By: Nola Zuniga DO\.br\Date and Time Signed: 04/07/23 13:17 [id number] NoteReason for Consultation Medical management. History of [...] mg oral tablet, See Instructions Potassium Chloride (Cnt-Yvfp-Hnm 10) 10 mEq oral tablet, extended release, 10 mEq= 1 tab(s), Oral, Daily sertraline 25 mg Tab, 25 mg= 1 tab(s), Oral, Daily Tegretol XR 200 mg oral tablet, extended release, 200 mg= 1 tab(s), Oral, TID Allergies Dilantin (Rash) Socia (more content not included)...[facility] HospitalComment on above: Result Comment: Electronically Signed By: Radha SHIRLEY\.br\Date and Time Signed: 04/05/23 16:47 EST\.br\Electronically Co-Signed By: Lincoln Hammond DO\.br\Date and Time Co-Signed: 04/06/23 07:11 [id number] NotePT Evaluation completed with an A PAC [...] follow daily with recommendations on [facility] [id number] [facility]01-27-2023 NotePROCEDURE: XR KNEE RT 1_2 V HISTORY: Pain of right knee joint since falling 3 weeks ago COMPARISON: None. FINDINGS: BONES:Complete loss of medial joint space with grbq-rx-uucc articulation. Mild-moderate narrowing of lateral compartment and anterior compartment. Prominent periarticular degenerative osteophytes. No fracture or dislocation. SOFT TISSUES:No visible soft tissue swelling. EFFUSION:None visible. OTHER: Negative. IMPRESSION: 1. No acute bone abnormality. 2. Marked degenerative joint disease. Electronically authenticated by: ARELI HOOD Date: 2022-04-17 07:37[facility]01-26-2023 Evaluation note* Encounter Date Diagnosis Assessment Notes Treatment Notes Treatment Clinical Notes Mar, Posterior right knee pain (ICD-10 - M25.561) Mar, Syncope and collapse (ICD-10 - R55) Discussed potential cardiac treatment or testing for this problem. Patient states she never has symptoms except for this 1 time. We will continue to monitor. Has a home alert system with a necklace if needed [facility] Other Evaluation + Plan note Future Appointments Appointment Date:04/05/2023 10:00:00 AM Scheduled Provider: Location:[facility] Appointment Type:Surgery FT Diagnostic Tests Pending * Urine Culture [facility] InformationNort Banno Other Evaluation note* Diagnosis Acute saddle pulmonary [...] pulse documented in this encounter AMY JARAD [facility] general Narrative - Reported* Type Description Date [...] Surgical History tonsillectomy Hospitalization History allergic reaction [facility] Other History general Narrative - Reported* Type [...] Surgical History tonsillectomy Hospitalization History allergic reaction [facility] Other Hospital course Narrative No data available for this section [facility] No data available for this section [facility] No data available for this section [facility] Summary Purpose Family History No Family History [...] section and content) DATE CREATED AUTHOR 04/16/[address] [facility] DATE CREATED AUTHOR AUTHOR'S ORGANIZ ATION 07/29/2022 [facility] DATE CREATED AUTHOR AUTHOR'S ORGANIZ ATION 03/19/2023 [facility] EPIC DATE CREATED AUTHOR AUTHOR'S ORGANIZ ATION 04/29/2023 [facility] DATE CREATED AUTHOR AUTHOR'S ORGANIZ ATION 05/02/2023 [facility] REASON FOR VISIT (unrecogniz ed section and content) INR Reason Comments Shortness of Breath Loss of Consciousness WILLOWS - s/p R knee replacementUpdate Med Listcontact personmessagerefill for 90 daysSaint [facility] team informatio n (unrecognized section and content) Personnel Name: CASSIE LORENZ MD Address: Address: [address] [place] [address] Ordered Prescriptions (unrec ognized section and content) [...] or break. 0853 (Not Given - Provider: aFith Kingston RN - Reason: Nausea)2027 (Given - [...] BE BASED ON THE PRIMARY CLINICAL RECORDS. [employer] [facility]. provides no warranty or guarantee of the accuracy or completeness of information in this document.
[2023-05-15 16:38] LABS: Hematocrit 34.1 % (36.0-48.0); Hemoglobin 10.4 g/dL (12.0-16.0); Immature Granulocytes Abs Auto 0.01 10^3/uL (0.00-0.03); Immature Granulocytes Pct Auto 0.2 % (0.0-0.5); Lymphocytes Absolute Auto 1.6 10^3/uL (1.2-3.8); Lymphocytes Percent Auto 27.8 % (20.5-60.0); Mean Corpuscular HGB Conc 30.5 g/dL (29.9-35.2); Mean Corpuscular Hemoglobin 29.4 pg (26.7-34.0); Mean Corpuscular Volume 96.3 fL (81.0-99.0); Mean Platelet Volume 9.7 fL (9.5-13.5); Monocytes Absolute Auto 0.7 10^3/uL (0.3-0.8); Monocytes Percent Auto 11.3 % (1.7-12.0); Neutrophils Absolute Auto 3.5 10^3/uL (1.4-6.5); Neutrophils Percent Auto 60.7 % (43.0-75.0); Platelet Count 312 10^3/uL (150-450); Red Blood Count 3.54 10^6/uL (4.20-5.40); Red Cell Distribution Width 14.7 % (11.0-15.0); White Blood Count 5.8 10^3/uL (4.0-11.0)
[2023-05-15 16:50] LABS: INR 1.52; Prothrombin Time 15.7 sec (9.0-11.6)
[2023-05-15 16:55] LABS: Lactate/Lactic Acid 1.6 mmol/L (0.4-2.0)
[2023-05-15] MEDS: VANCOMYCIN HCL 1,500 MG in 0.9 % SODIUM CHLORIDE 500 ML 250 MG IV (16:55)
[2023-05-15] MEDS: 0.9 % SODIUM CHLORIDE 1,000 ML 999 ML IV (16:57)
[2023-05-15 16:58] LABS: Alanine Aminotransferase 15 U/L (14-59); Albumin Globulin Ratio 0.8; Alkaline Phosphatase 126 U/L (46-116); Anion Gap 12.7; Aspartate Amino Transferase 12 U/L (15-37); BUN Creatinine Ratio 17.9; Bilirubin Total 0.3 mg/dL (0.2-1.0); Carbon Dioxide 30.1 mmol/L (21.0-32.0); Chloride 108 mmol/L (98-107); Estimated GFR (African America >60 (>=60); Estimated GFR (Non-African Ame >60 (>=60); Globulin 3.6 g/dL; Glucose 113 mg/dL (74-106); Potassium 3.8 mmol/L (3.5-5.1); Sodium 147 mmol/L (136-145); Total Protein 6.6 g/dL (6.4-8.2)
--- NOTE | 2023-05-15 20:23 | PC.NURSE ---
report called to Gena RN [phone] [facility] 2053. report given to [facility] as well
== END 2023-05-15 20:25 | disposition short-term general hospital (02) ==
PROVIDERS: Emergency Provider Emergency Medicine Emergency Medical Services; PCP Family Medicine
DX: L03.115 Cellulitis of right lower limb (principal); Z96.651 Presence of right artificial knee joint; Z86.718 Personal history of other venous thrombosis and embolism; Z86.711 Personal history of pulmonary embolism; Z79.01 Long term (current) use of anticoagulants; Z79.82 Long term (current) use of aspirin; Z79.899 Other long term (current) drug therapy
CPT/HCPCS: 36415; 71045; 73560; 80053; 83605; 85025; 85610; 87040; 96365; 96366; 99285; J3370

== ENCOUNTER 2023-05-18 09:36 | Outpatient (RCR) | payer MEDICARE, MEDICAID, SELFPAY | END 2023-05-20 17:03 | disposition home or self-care (01) | LOC: MM 09:36 | PROVIDERS: PCP Family Medicine; Visit Provider Internal Medicine | DX: Z51.81 Encounter for therapeutic drug level monitoring (principal); Z79.01 Long term (current) use of anticoagulants; I26.99 Other pulmonary embolism without acute cor pulmonale ==

== ENCOUNTER 2023-05-21 03:22 | Outpatient (RCR) | payer MEDICARE, MEDICAID, SELFPAY | END 2023-06-18 14:00 | disposition home or self-care (01) | LOC: MM 03:22 | PROVIDERS: PCP Family Medicine; Visit Provider Internal Medicine | DX: Z51.81 Encounter for therapeutic drug level monitoring (principal); Z79.01 Long term (current) use of anticoagulants; I26.99 Other pulmonary embolism without acute cor pulmonale | CPT/HCPCS: 85610; G0463 ==

== ENCOUNTER 2023-06-21 00:18 | Outpatient (RCR) | payer MEDICARE, MEDICAID, SELFPAY | END 2023-07-20 17:41 | disposition home or self-care (01) | LOC: MM 00:18 | PROVIDERS: PCP Family Medicine; Visit Provider Internal Medicine | DX: Z51.81 Encounter for therapeutic drug level monitoring (principal); Z79.01 Long term (current) use of anticoagulants; I26.99 Other pulmonary embolism without acute cor pulmonale | CPT/HCPCS: 85610; G0463 ==

== ENCOUNTER 2023-07-21 00:13 | Outpatient (RCR) | payer MEDICARE, MEDICAID, SELFPAY | END 2023-08-20 11:06 | disposition home or self-care (01) | LOC: MM 00:13 | PROVIDERS: PCP Family Medicine; Visit Provider Internal Medicine | DX: Z51.81 Encounter for therapeutic drug level monitoring (principal); Z79.01 Long term (current) use of anticoagulants; I26.99 Other pulmonary embolism without acute cor pulmonale | CPT/HCPCS: 85610; G0463 ==

== ENCOUNTER 2023-08-19 14:47 | Outpatient (OUT) | payer MEDICARE, MEDICAID, SELFPAY ==
--- NOTE | 2023-08-19 | MM_ITS ---
Patient Name: MASSIEL ELLIOTT MR#: [id number] : 1965 Exam Date: 08/19/2023 Ordering Doctor: DR Gretel Esqueda M.D. RADIOLOGY REPORT PROCEDURE: MM TOMOSYNTHESIS SCREENING BI COMPARISON: MG MAMM SCREEN 3D ANA CAD, 01/30/2021. MG MAMM SCREEN 3D ANA CAD, 07/21/2022. INDICATIONS: Screening for malignant neoplasm Calculator Name NCI Breast Cancer Risk Assessment Tool 5 Year Breast Cancer Risk Not Reported. Lifetime Breast Cancer Risk Not Reported. Personal Breast Cancer No Personal Ovarian Cancer No Treatments None Family Cancers None LOCATION: [facility] BREAST COMPOSITION: There are scattered areas of fibroglandular density. FINDINGS: DIAGNOSTIC CATEGORY 2--BENIGN FINDING. NO CHANGE FROM COMPARISON. Scattered benign-appearing nodules are present. Scattered benign-appearing calcifications are present. Scattered benign-appearing lymph nodes are present. RIGHT BREAST: No significant suspicious finding. LEFT BREAST: No significant suspicious finding. RECOMMENDATIONS: ROUTINE MAMMOGRAM AND CLINICAL EVALUATION IN 12 MONTHS. PLEASE NOTE: A NORMAL MAMMOGRAM DOES NOT EXCLUDE THE POSSIBILITY OF BREAST CANCER. A CLINICALLY SUSPICIOUS PALPABLE LUMP SHOULD BE BIOPSIED. Dictated by: Ronnell Solo MD on 08/19/2023 at 16:04 Approved by: Ronnell Solo MD on 08/19/2023 at 16:06
== END 2023-08-19 14:48 | disposition home or self-care (01) ==
LOC: MAMMO 14:47
PROVIDERS: PCP Family Medicine; Visit Provider Family Medicine
DX: Z12.31 Encounter for screening mammogram for malignant neoplasm of breast (principal)
CPT/HCPCS: 77063; 77067

== ENCOUNTER 2023-08-23 00:08 | Outpatient (RCR) | payer MEDICARE, MEDICAID, SELFPAY | END 2023-09-17 09:55 | disposition home or self-care (01) | LOC: MM 00:08 | PROVIDERS: PCP Family Medicine; Visit Provider Internal Medicine | DX: Z51.81 Encounter for therapeutic drug level monitoring (principal); Z79.01 Long term (current) use of anticoagulants; I26.99 Other pulmonary embolism without acute cor pulmonale | CPT/HCPCS: 85610; G0463 ==

== ENCOUNTER 2023-09-20 00:27 | Outpatient (RCR) | payer MEDICARE, MEDICAID, SELFPAY | END 2023-10-20 09:30 | disposition home or self-care (01) | LOC: MM 00:27 | PROVIDERS: PCP Family Medicine; Visit Provider Internal Medicine | DX: Z51.81 Encounter for therapeutic drug level monitoring (principal); Z79.01 Long term (current) use of anticoagulants; I26.99 Other pulmonary embolism without acute cor pulmonale | CPT/HCPCS: 85610; G0463 ==

== ENCOUNTER 2023-10-21 00:28 | Outpatient (RCR) | payer MEDICARE, MEDICAID, SELFPAY | END 2023-11-19 08:48 | disposition home or self-care (01) | LOC: MM 00:28 | PROVIDERS: PCP Family Medicine; Visit Provider Internal Medicine | DX: Z51.81 Encounter for therapeutic drug level monitoring (principal); Z79.01 Long term (current) use of anticoagulants; I26.99 Other pulmonary embolism without acute cor pulmonale | CPT/HCPCS: 85610; G0463 ==

== ENCOUNTER 2023-11-22 00:44 | Outpatient (RCR) | payer MEDICARE, MEDICAID, SELFPAY | END 2023-12-20 23:49 | disposition home or self-care (01) | LOC: MM 00:44 | PROVIDERS: PCP Family Medicine; Visit Provider Internal Medicine | DX: Z51.81 Encounter for therapeutic drug level monitoring (principal); Z79.01 Long term (current) use of anticoagulants; I26.99 Other pulmonary embolism without acute cor pulmonale ==

== ENCOUNTER 2023-12-21 01:16 | Outpatient (RCR) | payer MEDICARE, MEDICAID, SELFPAY | END 2024-01-20 23:41 | disposition home or self-care (01) | LOC: MM 01:16 | PROVIDERS: PCP Family Medicine; Visit Provider Internal Medicine | DX: Z51.81 Encounter for therapeutic drug level monitoring (principal); Z79.01 Long term (current) use of anticoagulants; I26.99 Other pulmonary embolism without acute cor pulmonale ==

== ENCOUNTER 2024-01-21 10:03 | Outpatient (RCR) | payer MEDICARE, MEDICAID, SELFPAY | END 2024-02-19 23:59 | disposition home or self-care (01) | LOC: MM 10:03 | PROVIDERS: PCP Family Medicine; Visit Provider Internal Medicine | DX: Z51.81 Encounter for therapeutic drug level monitoring (principal); Z79.01 Long term (current) use of anticoagulants; I26.99 Other pulmonary embolism without acute cor pulmonale ==

== ENCOUNTER 2024-02-20 10:22 | Outpatient (RCR) | payer MEDICARE, MEDICAID, SELFPAY | END 2024-03-21 09:02 | disposition home health service (06) | LOC: MM 10:22 | PROVIDERS: PCP Family Medicine; Visit Provider Internal Medicine | DX: Z51.81 Encounter for therapeutic drug level monitoring (principal); Z79.01 Long term (current) use of anticoagulants; I26.99 Other pulmonary embolism without acute cor pulmonale ==

== ENCOUNTER 2024-03-23 00:07 | Outpatient (RCR) | payer MEDICARE, MEDICAID, SELFPAY | END 2024-04-21 14:39 | disposition home or self-care (01) | LOC: MM 00:07 | PROVIDERS: PCP Family Medicine; Visit Provider Internal Medicine | DX: Z51.81 Encounter for therapeutic drug level monitoring (principal); Z79.01 Long term (current) use of anticoagulants; I26.99 Other pulmonary embolism without acute cor pulmonale ==

== ENCOUNTER 2024-04-24 00:42 | Outpatient (RCR) | payer MEDICARE, MEDICAID, SELFPAY | END 2024-05-19 10:29 | disposition home or self-care (01) | LOC: MM 00:42 | PROVIDERS: PCP Family Medicine; Visit Provider Internal Medicine | DX: Z51.81 Encounter for therapeutic drug level monitoring (principal); Z79.01 Long term (current) use of anticoagulants; I26.99 Other pulmonary embolism without acute cor pulmonale ==

== ENCOUNTER 2024-05-21 07:23 | Outpatient (RCR) | payer MEDICARE, MEDICAID, SELFPAY | END 2024-06-16 13:42 | disposition home or self-care (01) | LOC: MM 07:23 | PROVIDERS: PCP Family Medicine; Visit Provider Internal Medicine | DX: Z51.81 Encounter for therapeutic drug level monitoring (principal); Z79.01 Long term (current) use of anticoagulants ==

== ENCOUNTER 2024-06-01 15:14 | Outpatient (OUT) | payer MEDICARE, MEDICAID, SELFPAY ==
[2024-06-01 15:37] LABS: Basophils Percent Auto 0.1 % (0.2-2.0); Hematocrit 40.3 % (36.0-48.0); Hemoglobin 12.9 g/dL (12.0-16.0); Immature Granulocytes Abs Auto 0.01 10^3/uL (0.00-0.03); Immature Granulocytes Pct Auto 0.1 % (0.0-0.5); Lymphocytes Absolute Auto 1.2 10^3/uL (1.2-3.8); Lymphocytes Percent Auto 18.3 % (20.5-60.0); Mean Corpuscular Hemoglobin 30.2 pg (26.7-34.0); Mean Corpuscular Volume 94.4 fL (81.0-99.0); Mean Platelet Volume 10.2 fL (9.5-13.5); Monocytes Absolute Auto 0.6 10^3/uL (0.3-0.8); Monocytes Percent Auto 8.7 % (1.7-12.0); Neutrophils Absolute Auto 4.9 10^3/uL (1.4-6.5); Neutrophils Percent Auto 72.8 % (43.0-75.0); Platelet Count 251 10^3/uL (150-450); Red Blood Count 4.27 10^6/uL (4.20-5.40); White Blood Count 6.8 10^3/uL (4.0-11.0)
[2024-06-01 15:47] LABS: Alanine Aminotransferase 21 U/L (14-59); Albumin Globulin Ratio 1.1; Albumin Level 3.6 g/dL (3.4-5.0); Alkaline Phosphatase 140 U/L (46-116); Anion Gap 11.4; Aspartate Amino Transferase 16 U/L (15-37); Bilirubin Total 0.3 mg/dL (0.2-1.0); Calcium 9.3 mg/dL (8.5-10.1); Carbon Dioxide 30.2 mmol/L (21.0-32.0); Chloride 106 mmol/L (98-107); Estimated GFR (African America 55 (>=60 mL/min/1.73m^2); Estimated GFR (Non-African Ame 46 (>=60 mL/min/1.73m^2); Globulin 3.4 g/dL; Glucose 100 mg/dL (74-106); Potassium 4.6 mmol/L (3.5-5.1); Sodium 143 mmol/L (136-145)
== END 2024-06-01 15:15 | disposition home or self-care (01) ==
LOC: LAB 15:17
PROVIDERS: PCP Family Medicine; Visit Provider Family Medicine
DX: E55.9 Vitamin D deficiency, unspecified (principal); I10 Essential (primary) hypertension; I26.99 Other pulmonary embolism without acute cor pulmonale
CPT/HCPCS: 36415; 80053; 82306; 85025

== ENCOUNTER 2024-06-20 04:14 | Outpatient (RCR) | payer MEDICARE, MEDICAID, SELFPAY | END 2024-07-19 14:47 | disposition home or self-care (01) | LOC: MM 04:14 | PROVIDERS: PCP Family Medicine; Visit Provider Internal Medicine | DX: Z51.81 Encounter for therapeutic drug level monitoring (principal); Z79.01 Long term (current) use of anticoagulants; I26.99 Other pulmonary embolism without acute cor pulmonale ==

== ENCOUNTER 2024-07-20 04:37 | Outpatient (RCR) | payer MEDICARE, MEDICAID, SELFPAY | END 2024-08-18 15:06 | disposition home or self-care (01) | LOC: MM 04:37 | PROVIDERS: PCP Family Medicine; Visit Provider Internal Medicine | DX: Z51.81 Encounter for therapeutic drug level monitoring (principal); Z79.01 Long term (current) use of anticoagulants; I26.99 Other pulmonary embolism without acute cor pulmonale ==

== ENCOUNTER 2024-08-20 07:57 | Outpatient (RCR) | payer MEDICARE, MEDICAID, SELFPAY | END 2024-08-22 10:10 | disposition home or self-care (01) | LOC: MM 07:57 | PROVIDERS: PCP Family Medicine; Visit Provider Internal Medicine | DX: Z51.81 Encounter for therapeutic drug level monitoring (principal); Z79.01 Long term (current) use of anticoagulants; I26.99 Other pulmonary embolism without acute cor pulmonale ==

== ENCOUNTER 2024-09-12 09:25 | Outpatient (OUT) | payer MEDICARE, MEDICAID, SELFPAY ==
--- OUTSIDE RECORDS SUMMARY | 2023-01-27 08:30 | XMS_ITS | Continuity of Care Document ---
Author Organization [facility] Address [address] [place] [address] Phone Care Team Providers Care Box Toe Cementer Name Role Phone Charu Emery DDS Unavailable Unavailable Allergies, Adverse Reactions, Alerts Substance Reaction Status Criticality PHENYTOIN SODIUM EXTENDED Active No Information PHENYTOIN SODIUM Active No Informat ion Procedures Procedure Date Intraoral-periapical 1st Film Bitewig-single Film [id number] Additional Jan Oral Hygiene Instruction Limited Oral Eval Advance Directives Directive Yes / No Effective Date File Name No Information Encounters Encounter Description Practice Location Reason(s) For Visit Diagnoses Date Provider Providers Copied on Encounter [facility], [address] [place] [address], [id number], tel:[phone] [facility] ER (chief complaint) Encounter for screening for dental disorders [facility]. . tel:[phone] Family History Family Member Type Diagnosis Age At Onset No Information Payers Payer name Insurance type Covered republican ID Authorseven peña(s) D Medicaid Primary [facility] [id number] Social History Type Description Quantity Date Captured Comments Alcohol Use Details Unknown Caffeine Use Details Unknown Tobacco Use Status No Information Smoking Status No Information Sex Female Sexual Orientation Lesbian, meehan or homosexual Gender Identity Female Vital Signs Date / Time: Height Weight BMI Pulse Rate Blood Pressure Temperature Respiratory Rate Body Surface Area Head Circumference Head Circ. Percentile Wt./Guevara. Percentile BMI percentile Pulse Ox Inhaled Ox 12:36 PM 69 /min 184/90 mm[Hg] 98.00 F Chief Complaint And Reason For Visit From encounter dated 01/27/2023 12:30'. ER (chief complaint) Reason For Referral Reason For Referral No Information Plan Of Treatment Date Type Action Status Goal Colonoscopy. Due on due Goal Tdap. Due on due Goal Unhealthy drug use screening . Due on due Goal Hepatitis C screening. Due o n due Goal Depression screening. Due on due Goal Hep A. Due on du e Goal FIT-DNA. Due on due Goal Lipid panel. Due on due Goal Tdap Vaccine. Due on 2022 due Goal FIT. Due on due Goal CT-Colonography. Due on due Goal Influenza vaccine. Due on No v due Goal Mammogram. Due on due Goal Zoster vaccine (1st). Due on due Goal FOBT. Due on due Goal PRAPARE ASSESSMENT. Due on N ov due Goal HPV. Due on due History Of Present Illness Encounter Date Complaint History Of Prese nt Illness ER Functional Status Date Functional Assessmen t No Information Instructions Date Instruction Additional Infor mation No Information Assessments Type Assessment Date No Information Patient Care Teams Name Effective Dates (start - stop) Status Members No Information
--- OUTSIDE RECORDS SUMMARY | 2023-08-17 10:15 | XMS_ITS ---
Author Organization [facility] Address [address], [place] [id number] Care Team Providers Care Line Supervisor Name Role Phone David Latham Unavailable [phone] REASON FOR VISIT Extraction #19 Medications Medication SIG (Take, Route, Frequency, Duration) Notes Start Date End Date Status Sertraline HCl 07/05/2023 Acti ve carBAMazepine 07/05/2023 Activ e Cetirizine HCl 07/05/2023 Acti ve Famotidine 07/05/2023 Active hydrOXYzine HCl 07/05/2023 Act masoud Oyster Shell Calcium 500 MG Oral for 90 Days Active Vitamin D3 50 MCG (1999) Oral for 90 Days Active Montelukast Sodium 07/05/2023 Active Social History Sex Assigned At : Social History Observation Description Sex Assigned At Female Encounters Encounter Location Date Provider Diagnosis [facility] [address] [place] [phone] 08/17/2023 David Latham Plan Of Treatment No Information Progress Notes * Elizabeth ELLIOTTDOB:1965 (59 yo F)Acc No.[id number]:08/17/2023 Patient: Teressa Elizabeth BOWLES Provider: Reji Latham DDS :1965 A ge:58 Y S ex:Female Date:08/17/2023 Address:[address] [place], [place] [id number] Subjective: * Chief Complaints: * 1 . Extraction #19. * Medical History: * Medications: T aking Vitamin D3 50 MCG (1999) Capsule Oral , Taking Oyster Shell Calcium 500 MG Tablet Oral , Taking Montelukast Sodium , Taking hydrOXYzine HCl , Taking Famotidine , Taking Cetirizine HCl , Taking carBAMazepine , Taking Sertraline HCl Objective: * Vitals: Assessment: Plan: * Treatment: * Billing Information: * Visit Code: * Procedure Codes: * Electronic signature of Eneida Latham DDS on 09/12/2024 at 09:27 AM EDT Sign off status: Pending * Provider: Reji Latham DDS Date: 08/17/2023 Generated for Denis keating/Scottie/Carlos on: 09/12/2024 09:27 AM EDT
--- OUTSIDE RECORDS SUMMARY | 2024-01-27 05:45 | XMS_ITS ---
Author Organization [facility] Address [address], [place] [id number] Care Team Providers Care Kelly Machine Operator Name Role Phone David Latham Unavailable [phone] REASON FOR VISIT Recall (A) (58) Social History Sex Assigned At : Social History Observation Description Sex Assigned At Female Encounters Encounter Location Date Provider Diagnosis [facility] [address] [place] [phone] 01/27/2024 David Latham Plan Of Treatment No Information Progress Notes * Elizabeth ELLIOTTDOB:1965 (59 yo F)Acc No.[id number]:01/27/2024 Patient: Elizabeth Gannon RP Provider: Reji Latham DDS :1965 A ge:58 Y S ex:Female Date:01/27/2024 Address:[address] [place], [place] [id number] Subjective: * Chief Complaints: * 1 . Recall (A) (58). * Medical History: Objective: * Vitals: Assessment: Plan: * Treatment: * Billing Information: * Visit Code: * Procedure Codes: * Electronic signature of Eneida Latham DDS on 09/12/2024 at 09:28 AM EDT Sign off status: Pending * Provider: Reji Latham DDS Date: 1 03/28/2023 Generated for Printi ng/Faxing/eTransmitting on: 0 09/12/2024 09:28 AM EDT
--- OUTSIDE RECORDS SUMMARY | 2024-09-12 09:28 | XMS_ITS | Clinical Summary ---
Author Organization [facility] Address [address] [place] [address] Care Team Providers Care Blister Rust Eradicator Name Role Phone Unavailable Primary Care Provider Unavailabl e Allergies Active Allergy Reactions Criticality Noted Date Comments Phenytoin 04/21/2023 Medications cetirizine (ZYRTEC) 10 MG tablet Take 1 tablet by mouth daily as needed for Allergies Active vitamin D (CHOLECALCIFERO L) 25 MCG (1000 UT) TABS tablet Take 2 tablets by mouth daily Active montelukast (SINGULAIR) 10 MG tablet Take 1 tablet by mouth nightly Active potassium chloride (MICRO-K) 10 MEQ extended release capsule Take 1 capsule by mouth daily Active sertraline (ZOLOFT) 25 MG tablet Take 1 tablet by mouth daily Active aspirin 325 MG EC tablet Take 1 tablet by mouth daily Active docusate sodium (COLACE) 100 MG capsule Take 1 capsule by mouth 2 times daily Active guaiFENesin (MUCINEX) 600 MG extended release tablet Take 2 tablets by mouth 2 times daily Active ondansetron (ZOFRAN) 4 MG tablet Take 1 tablet by mouth every 4 hours as needed for Nausea or Vomiting Active oxyCODONE-aceta minophen (PERCOCET) 5-325 MG per tablet Take 1 tablet by mouth every 6 hours as needed for Pain. Active ammonium lactate (LAC-HYDRIN) 12 % lotion Apply topically as needed. 57 g 1 4 Active pantoprazole (PROTONIX) 40 MG tablet Take 1 tablet by mouth every morning (before breakfast) 30 tablet 3 4 Active warfarin (COUMADIN) 2.5 MG tablet Take 1 tablet by mouth daily 30 tablet 4 Active lacosamide (VIMPAT) 150 MG TABS tabletIndicatio ns:Seizure disorder (HCC) Take 1 tablet by mouth 2 times daily. Max Daily Amount: 300 mg 60 tablet 2 4 Active amLODIPine (NORVASC) 5 MG tablet Take 1 tablet by mouth daily 30 tablet 3 4 Active Active Problems Problem Noted Date Diagnosed Date Acute saddle pulmonary embolism with acute cor p ulmonale 06/03/2023 Acute deep vein thrombosis (DVT) of right femora l vein 06/03/2023 Lymphedema due to venous insufficiency Leg swelling 06/03/2023 Acute pain of right knee 05/16/2023 History of total right knee replacement 05/16/19 Cellulitis 05/15/2023 Nonpalpable pulse 04/27/2023 Acute deep vein thrombosis (DVT) 04/22/2023 Obesity (BMI 30.0-34.9) 04/22/2023 Acute hypoxic respiratory failure 04/22/2023 Seizure disorder 04/22/2023 Syncope 04/22/2023 Acute saddle pulmonary embolism without acute co r pulmonale 04/21/2023 Peripheral venous insufficiency 09/04/2022 04/22/2023 Family History Medical History Relation Name Comments Other Brother Diabetes Father Heart Failure Father Cancer Mother Other Mother Stroke Mother Relation Name Status Comments Brother Alive Father Mother Social History Tobacco Use Types Packs/Day Years Used Date Smoking Tobacco: Never Passive Smoke Exposure: Never Smokeless Tobacco: Never Tobacco Cessation:Counseling Given: Not Answered Alcohol Use Standard Drinks/Week Comments Not Currently 0 (1 standard drink = 0.6 oz pur e alcohol) [facility] Utilities Answer Date Recorded In the past 12 months has e [employer], gas, oil, or water [employer] threatened to shut off services in your home? No 05/15/2023 Hunger Vital Sign Answer Date Recorded Within the past 12 months, y ou worried that your food would run out before you got the money to buy more. Never true 05/15/19 Within the past 12 months, t he food you bought just didn't last and you didn't have money to get more. Never true 05/15/2023 PRAPARE - Transportation Answer Date Re corded In the past 12 months, has l ack of transportation kept you from medical appointments or from getting medications? Yes 04/23 In the past 12 months, has l ack of transportation kept you from meetings, work, or from getting things needed for daily living? No 05/15/2023 Housing Stability Vital Sign Answer Taras e Recorded In the last 12 months, was t here a time when you were not able to pay the mortgage or rent on time? No 05/15/2023 In the last 12 months, how many places have you lived? 1 05/15/2023 In the last 12 months, was t here a time when you did not have a steady place to sleep or slept in a custodial (including now)? No 05/15/2023 Interpersonal Safety ([facility] HRSN) Answer Date Recorded How often does anyone, mariella farley family and friends, physically hurt you? Never 05/15/2023 How often does anyone, mariella farley family and friends, scream or curse at you? Not on file 05/15/2023 How often does anyone, mariella farley family and friends, insult or talk down to you? Not on file 05/15/2023 How often does anyone, mariella farley family and friends, threaten you with harm? Not on file 05/15/2023 Food Insecurity Answer Date Recorded Within the past 12 months, y ou worried that your food would run out before you got the money to buy more. 1 05/15/2023 Within the past 12 months, t he food you bought just didn't last and you didn't have money to get more. 1 05/15/2023 Interpersonal Safety Domain Source: IP Abuse Scr eening Answer Date Recorded Read-Only, Retired: Physical Abuse Denies 05/15/2023 Read-Only, Retired: Verbal Abuse Denies 05/15/2023 Read-Only, Retired: Emotional abuse Denies 05/15/2023 Read-Only, Retired: Financial Abuse Denies 05/15/2023 Read-Only, Retired: Sexual abuse Denies 05/15/2023 Comments No Sex and Gender Information Value Date Recorded Sex Assigned at Not on file Legal Sex Female 11:39 AM EST Gender Identity Not on file Sexual Orientation Not on file Last Filed Vital Signs Vital Sign Reading Time Taken Comments Blood Pressure 150/88 06/03/2023 10:24 AM EDT Pulse 82 06/03/2023 10:24 AM EDT Temperature 36.2 C (97.2 F) 05/18/2023 10:45 AM EST Respiratory Rate 18 06/03/2023 10:24 AM EDT Oxygen Saturation 97% 06/03/2023 10:24 AM EDT Inhaled Oxygen Concentration - - Weight 103.9 kg (229 lb) 06/03/2023 10:24 AM EDT Height 177.8 cm (5' 10 ) 06/03/2023 10:24 AM EDT Body Mass Index 32.86 06/03/2023 10:24 AM EDT Plan of Treatment Health Maintenance Due Date Last Done Comments Depression Screen 1975 HIV screen 06/21/1978 Hepatitis C screen 06/21/1981 DTaP/Tdap/Td vaccine (1 - Tdap) 06/21/1982 Pneumococcal 50+ years Vacci ne (1 of 2 - PCV) 06/21/1982 Pap smear 06/21/1984 Cervical cancer screen 06/21/1993 HPV (without or with Pap) 06/21/1993 Breast cancer screen 2003 Lipids 2003 Colonoscopy 06/21/2008 Colorectal Cancer Screen 06/21/2008 FIT/FOBT: Average risk 06/21/2008 Fecal-DNA (Cologuard): Average risk 06/21/2008 Sigmoidoscopy/CT colonography 06/21/2008 Shingles vaccine (1 of 2) 06/21/2013 Annual Wellness Visit (Medicare) 04/21/2023 Respiratory Syncytial Virus (RSV) or age 60 yrs+ (1 - Risk 60-74 years 1-dose series) 2023 COVID-19 Vaccine ( - 2023-2 5 season) 2023 Flu vaccine (Season Ended) 2024 Hepatitis A vaccine Aged Out No longe r eligible based on patient's age to complete this topic Hepatitis B vaccine Aged Out No longe r eligible based on patient's age to complete this topic Hib vaccine Aged Out No longer eligi ble based on patient's age to complete this topic Meningococcal (ACWY) vaccine Aged Out No longer eligible based on patient's age to complete this topic Meningococcal B vaccine Aged Out No l onger eligible based on patient's age to complete this topic Polio vaccine Aged Out No longer elig ible based on patient's age to complete this topic Insurance [place] Advance Directives Documents on File Type Date Recorded Patient Painter Spring Expl anation ACP-Advance Directive 04/29/2023 1:29 PM * Full Code (Latest Code Status on File) Date Activated Date Inactivated Comments 05/15/2023 11:39 PM 05/18/2023 5:52 PM * Full Code Date Activated Date Inactivated Comments 04/21/2023 5:59 PM 04/28/2023 1:06 PM Healthcare Agents on File Name Relationship Healthcare Agent [facility] Larry Chu Brother/Sister Primary Decision Maker
--- OUTSIDE RECORDS SUMMARY | 2024-09-12 09:28 | XMS_ITS | Clinical Summary ---
Author Organization [facility] Address [id number] [address] [place] [address] Care Team Providers Care Conveyor Operator Name Role Phone Unavailable Primary Care Provider Unavailabl e Social History Tobacco Use Types Packs/Day Years Used Date Smoking Tobacco: Never Assessed Childcare Answer Date Recorded Childcare Unknown 08/29/2018 Employment Answer Date Recorded Employment Unknown 08/29/2018 Comments Unknown Sex and Gender Information Value Date Recorded Sex Assigned at Not on file Legal Sex Female 1:48 PM EDT Gender Identity Not on file Sexual Orientation Not on file Plan of Treatment Not on file Medical Devices Not on file
--- OUTSIDE RECORDS SUMMARY | 2024-09-12 09:28 | XMS_ITS | Patient Health Record ---
Author Organization [facility] Address [address] [place], [place] [id number] Care Team Providers Care Document Specialist Name Role Phone David Latham Unavailable [phone] Allergies Allergen (clinical drug ingredient) Drug/Non Drug Allergy documented on EMR Reaction Allergy Type Onset Date Status phenytoin Dilantin Urticaria , Rash , Hives Drug Allergy 04/30/2015 Active Reason For Referral No Information Medications Medication SIG (Take, Route, Frequency, Duration) Notes Start Date End Date Status Vitamin D3 50 MCG (1999) Oral for 90 Days Active Oyster Shell Calcium 500 MG Oral for 90 Days Active Montelukast Sodium 07/05/2023 Active hydrOXYzine HCl 07/05/2023 Act masoud Famotidine 07/05/2023 Active Cetirizine HCl 07/05/2023 Acti ve carBAMazepine 07/05/2023 Activ e Sertraline HCl 07/05/2023 Acti ve Social History Sex Assigned At : Social History Observation Description Sex Assigned At Female Problems Problem Type SNOMED Code ICD Code Onset Dates Problem Status W/U Status Risk Notes Problem Atypical squamous cells of undetermined significance on cervical Papanicolaou smear (576983231) Atypical squamous cells of undetermined significance (ASCUS) on Papanicolaou smear of cervix (R87.610) Active confirmed Comment:[facility] S. HPV testing done today, Problem Vaginal discharge (402999352) Vaginal discharge (N89.8) Active confirmed Problem Mammogram - screening (67254418) Visit for screening mammogram (Z12.31) Active confirmed Problem Follow-up status (270883785) Follow up (Z09) Active confirmed Problem Gynecological examination normal (219162706828995 ) Encounter for routine gynecological examination (Z01.419) Active confirmed Comment:[facility] gynecology exam completed. Vaginal discharge and itching. Cx sent. Empiric treatment with diflucan 150mg po x1, Problem Pruritus of vagina (13124563) Vaginal itching (N89.8) Active confirmed Vital Signs Heart Rate 61 /min 10/20/2023 Height-cm 173.99 cm 10/20/2023 Blood pressure diastolic 61 mm Hg 10/20/2023 Weight-kg 100.24 kg 10/20/2023 Height 68.50 in 10/20/2023 Blood pressure systolic 112 mm Hg 10/20/2023 Weight 221 lbs 10/20/2023 BMI 33.11 kg/m2 10/20/2023 Encounters Encounter Location Date Provider Diagnosis [facility] [address] [place] [address] [phone] 10/20/2023 Davdi Latham Necrosis of pulp K04.1 Assessments Encounter Date Diagnosis (ICD Code) Assessment Notes Treatment Notes Treatment Clinical Notes Section Notes 10/20/2023 Necrosis of pulp (ICD-10 - K04.1) Plan Of Treatment Pending Test Test Name Order Date HPV Testing (49343) 06/13/2015 INFCT AGENT DETECT NUCLEIC ACID, NOS, MU LT ORGANISMS, DIRECT PROBE (87726) 04/30/2015 ThinPrep Pap Test, Image-Guided (06200) 04/30/2015 Insurance Providers Payer Name Payer Address Payer Phone Subscriber Number Group Number Insured Name Patient Relationship to Insured Coverage Start Date Coverage End Date DMedicaid [address] [place], [place] [id number] Elizabeth Chu Self - patient is the insured 6 Medical (General) History Medical History History ICD Code Anxiety/Depression, ProblemStatus: Activ e, , Seizure Disorder, ProblemStatus: Active, , Surgical History Surgery Date(Month/Year) Knee arthroscopy, ProblemStatus: Active, : Right, Tonsillectomy, ProblemStatus: Active,
--- OUTSIDE RECORDS SUMMARY | 2024-09-12 09:28 | XMS_ITS | Clinical Summary ---
Author Organization [facility] Address [address] [place] [address] Care Team Providers Care Display Artist Name Role Phone Gretel Esqueda MD Primary Care Provider [phone] Allergies Active Allergy Reactions Criticality Noted Date Comments Phenytoin Unknown 09/04/2022 Medications primidone (Mysoline) 50 MG tablet every 8 (eight) hours. Active montelukast (Singulair) 10 MG tablet 1 (one) time each day at the same time. Active carBAMazepine (TEGretol) 200 MG tablet every 8 (eight) hours. Active acetaminophen (Tylenol) 325 MG tablet every 6 (six) hours. Active cholecalciferol (Vitamin D-3) 25 MCG (1000 UT) capsule Vitamin D3 Active sertraline (Zoloft) 20 MG/ML concentrated solution Sertraline HCl Activ e Oyster Shell (Oyster Calcium) 500 MG tablet Oyster Calcium A ctive potassium chloride CR (Klor-Con) 10 MEQ ER tablet Take 10 mEq by mouth in the morning. 10/13/19 23 Active baclofen (Lioresal) 5 MG tablet TAKE 1 TO 2 TABLETS BY MOUTH TWICE A DAY 12/18/19 23 Active [facility] 10 MG tablet Take 10 mg by mouth in the morning. 11/09/19 23 Active ammonium lactate (Lac-Hydrin) 12 % lotionIndications: Xerosis cutis APPLY TO FEET TWICE DAILY IF NEEDED FOR DRY SKIN 400 mL 3 01/16/20 23 Active famotidine (Pepcid) 20 MG tablet Take 20 mg by mouth in the morning and 20 mg before bedtime. 01/08/20 23 Active aspirin 325 MG EC tablet Take 1 tablet by mouth in the morning. Active ipratropium-albute rol (Duo-Neb) 0.5-2.5 mg/3 mL nebulizer solution Inhale 3 mL 04/27/19 24 Active lacosamide (Vimpat) 150 mg tablet tablet Take 150 mg by mouth 04/28/19 24 Active oxyCODONE-acetamin ophen (Percocet) 5-325 MG tablet Take 1 tablet by mouth every 6 (six) hours if needed Active pantoprazole (ProtoNix) 40 MG EC tablet Take 40 mg by mouth in the morning. Take before meals. 04/28/19 24 Active ondansetron (Zofran) 4 MG tablet Take 4 mg by mouth Active amLODIPine (Norvasc) 5 MG tablet Take 5 mg by mouth Daily Active loratadine (Claritin) 10 MG tablet 08/10/19 24 Active warfarin (Coumadin) 2.5 MG tablet TAKE 1 TABLET BY MOUTH 4 TIMES A WEEK 07/19/19 24 Active cephalexin (Keflex) 500 MG capsuleIndications :Primary osteoarthritis of right knee Take two caps evening prior to appointment, take two caps one hour prior to appointment 4 capsule 2 08/11/19 24 Active Active Problems Problem Noted Date Diagnosed Date Peripheral venous insufficiency 09/04/2022 Family History Medical History Relation Name Comments Arthritis Father Depression Father Diabetes Father Heart disease Father Hypertension Father Arthritis Mother Cancer Mother Diabetes Mother Heart disease Mother Stroke Mother Relation Name Status Comments Father Mother Social History Tobacco Use Types Packs/Day Years Used Date Smoking Tobacco: Never Passive Smoke Exposure: Never Smokeless Tobacco: Never Tobacco Cessation:Counseling Given: Not Answered Alcohol Use Standard Drinks/Week Comments Never 0 (1 standard drink = 0.6 oz pur e alcohol) Comments Unknown Sex and Gender Information Value Date Recorded Sex Assigned at Not on file Legal Sex Female 7:25 PM EDT Gender Identity Not on file Sexual Orientation Not on file Last Filed Vital Signs Vital Sign Reading Time Taken Comments Blood Pressure 134/82 01/21/2023 4:30 PM EDT Pulse 78 01/21/2023 4:30 PM EDT Temperature 36.3 C (97.4 F) 08/11/2023 9:37 AM EDT Respiratory Rate - - Oxygen Saturation - - Inhaled Oxygen Concentration - - Weight 104 kg (230 lb) 08/11/2023 9:37 AM EDT Height 179.1 cm (5' 10.5 ) 08/11/2023 9:37 AM ED T Body Mass Index 32.54 08/11/2023 9:37 AM EDT Plan of Treatment Health Maintenance Due Date Last Done Comments CT Colonography 1965 Colonoscopy 1965 Colorectal Cancer Screening 1965 FIT-DNA 1965 FIT 1965 FOBT 1965 Sigmoidoscopy 1965 Pap Smear 06/21/1984 Cervical Cancer Screening 06/21/1993 HPV/Cotest 06/21/1993 Mammogram 2003 Influenza Vaccine (Season Ended) 2024 01/02/20 22 Insurance MEDICAID [place] MEDICARE Care Teams Display Artist Relationship Specialty Start Date End Date Gretel Esqueda MD PCP - General Family Medicine 09/03/22
--- OUTSIDE RECORDS SUMMARY | 2024-09-12 09:28 | XMS_ITS | Encounter Summary ---
Author Organization [facility] Address [address] [place] [address] Care Team Providers Care Avionics Repair Technician Name Role Phone Gretel Esqueda MD Primary Care Provider [phone] Encounter Details Date Type Department Care Team (Late st Contact Info) Description 04/06/2023 Abstract [facility] [address] [place] [id number] Dawood Warren, DO [address] [facility] [place] [address] Social History Tobacco Use Types Packs/Day Years Used Date Smoking Tobacco: Never Passive Smoke Exposure: Never Smokeless Tobacco: Never Alcohol Use Standard Drinks/Week Comments Never 0 (1 standard drink = 0.6 oz pur e alcohol) Comments Unknown Sex and Gender Information Value Date Recorded Sex Assigned at Not on file Legal Sex Female 7:25 PM EDT Gender Identity Not on file Sexual Orientation Not on file documented as of this encounter Plan of Treatment Not on file documented as of this encounter Visit Diagnoses Not on filedocumented in this encounter Care Teams Avionics Repair Technician Relationship Specialty Start Date End Date Gretel Esqueda MD PCP - General Family Medicine 09/03/22 documented as of this encounter
--- OUTSIDE RECORDS SUMMARY | 2024-09-12 09:28 | XMS_ITS | Encounter Summary ---
Author Organization [facility] Address [address] [place] [address] Care Team Providers Care Mold Making Supervisor Name Role Phone Gretel Esqueda MD Primary Care Provider [phone] Encounter Details Date Type Department Care Team (Late st Contact Info) Description 04/05/2023 Clinisync Result Encounter [facility] Unsolicited Dawood Warren, DO [address] [place], [place] [id number] Social History Tobacco Use Types Packs/Day Years [...] on file documented as of this encounter Procedures Procedure Name Priority Date/Time Associated Diagnosis Comments XR KNEE 1 OR 2 VIEWS RIGHT 04/05/2023 11:07 AM EST documented in this encounter Results * XR KNEE 1 OR 2 VIEWS RIGHT (04/05/2023 11:07 AM EST) Anatomical Region Laterality Modality Other 04/05/2023 11:0 7 AM EST Narrative 04/05/2023 2:15 PM EST Exam Date/Time: 04/05/2023 11:18 EST Reason for [...] is anatomic. No periprosthetic abnormality. Ordering Provider: Dawood Warren FINAL REPORT Dictated: 04/05/2023 2:12 pm Harley Kitchen DO Signed (Electronic Signature): 04/05/2023 2:12 pm Signed by: Harley Kitchen DO Transcribed by: CESAR Technologist: CECELIA Technical Comments Radiation Dose: Ka,r in mGy = na DAP = na Procedure Note Radiology, Radiologist, - 04/05/2023 Exam Date/Time: 04/05/2023 11:18 EST Reason for Exam: Post-op evaluation;Other (please specify) Report IMPRESSION: POSTSURGICAL CHANGES OF RIGHT TOTAL KNEE ARTHROPLASTY. EXAM: XR Knee 1 or 2 Views Right HISTORY: Postoperative evaluation total knee arthroplasty TECHNIQUE: Frontal and lateral views of the knee COMPARISON: Radiograph 01/06/2023 FINDINGS: Postsurgical changes of total knee arthroplasty including soft tissueemphysema. Alignment is anatomic. No periprosthetic abnormality. Ordering Provider: Dawood Warren FINAL REPORT Dictated: 04/05/2023 2:12 pm Harley Kitchen DO Signed (Electronic Signature): 04/05/2023 2:12 pm Signed by: Harley Kitchen DO Transcribed by: CESAR Technologist: CECELIA Technical Comments Radiation Dose: Ka,r in mGy = na DAP = na us Dawood Warren DO [facility] Final Resu lt documented in this encounter Visit Diagnoses Not on filedocumented in this encounter Care Teams Mold Making Supervisor Relationship Specialty Start Date End Date Gretel Esqueda MD PCP - General Family Medicine 09/03/22 documented as of this encounter
--- OUTSIDE RECORDS SUMMARY | 2024-09-12 09:28 | XMS_ITS | Encounter Summary ---
Author Organization [facility] Address [address] [place] [address] Care Team Providers Care Voting Machine Mechanic Name Role Phone Gretel Esqueda MD Primary Care Provider [phone] Encounter Details Date Type Department Care Team (Late st Contact Info) Description 03/21/2023 Orders Only [facility] [address] [place] [address] Dawood Warren, DO [address] [place] [address] Primary osteoarthritis of right knee (Primary Dx) Social History Tobacco Use Types Packs/Day Years [...] documented as of this encounter Visit Diagnoses Diagnosis Primary osteoarthritis of right knee- Primary documented in this encounter Care Teams Voting Machine Mechanic Relationship Specialty Start Date End Date Gretel Esqueda MD PCP - General Family Medicine 09/03/22 documented as of this encounter
--- OUTSIDE RECORDS SUMMARY | 2024-09-12 09:28 | XMS_ITS | Encounter Summary ---
Author Organization [facility] Address [address] [place] [address] Care Team Providers Care Sight Mounter Name Role Phone Gretel Esqueda MD Primary Care Provider [phone] Encounter Details Date Type Department Care Team (Late st Contact Info) Description 09/08/2022 Abstract [facility] [address] [place] [address] Tiara Encarnacion MECHANICAL ENGINEERING OFFICER Social History Tobacco Use Types Packs/Day Years Used Date Smoking Tobacco: Never Smokeless Tobacco: Never Alcohol Use Standard [...] on filedocumented in this encounter Care Teams Sight Mounter Relationship Specialty Start Date End Date Gretel Esqueda MD PCP - General Family Medicine 09/03/22 documented as of this encounter
--- NOTE | 2024-09-12 09:29 | MM_ITS ---
Patient Name: MASSIEL ELLIOTT MR#: [id number] : 1965 Exam Date: 09/12/2024 Ordering Doctor: DR CASSIE LORENZ M.D. RADIOLOGY REPORT PROCEDURE: MM TOMOSYNTHESIS SCREENING BI COMPARISON: MM TOMOSYNTHESIS SCREENING BI, 08/19/2023. MG MAMM SCREEN 3D ANA CAD, 07/21/2022. MG MAMM SCREEN 3D ANA CAD, 01/30/2021. MG MAMM ANA SCRN W CAD DIG, 05/09/2015. INDICATIONS: Screening Calculator Name NCI Breast Cancer Risk Assessment Tool 5 Year Breast Cancer Risk Not Reported. Lifetime Breast Cancer Risk Not Reported. Personal Breast Cancer No Personal Ovarian Cancer No Treatments None Family Cancers None LOCATION: [facility] BREAST COMPOSITION: There are scattered areas of fibroglandular density. FINDINGS: RIGHT BREAST: No significant suspicious finding. Benign-appearing calcifications are present. LEFT BREAST: No significant suspicious finding. Benign-appearing calcifications are present. DIAGNOSTIC CATEGORY 2--BENIGN FINDING: RECOMMENDATIONS: ROUTINE MAMMOGRAM AND CLINICAL EVALUATION IN 12 MONTHS. PLEASE NOTE: A NORMAL MAMMOGRAM DOES NOT EXCLUDE THE POSSIBILITY OF BREAST CANCER. A CLINICALLY SUSPICIOUS PALPABLE LUMP SHOULD BE BIOPSIED. Dictated by: Steve Muller MD on 09/12/2024 at 12:01 Approved by: Steve Muller MD on 09/12/2024 at 12:08
== END 2024-09-12 09:26 | disposition home or self-care (01) ==
LOC: MAMMO 09:25
PROVIDERS: PCP Family Medicine; Visit Provider Family Medicine
DX: Z12.31 Encounter for screening mammogram for malignant neoplasm of breast (principal)
CPT/HCPCS: 77063; 77067